=== PATIENT | female | born 1965 | race Hispanic/Latino ===

== ENCOUNTER 2024-07-25 15:04 | Inpatient (IN) | payer BC ==
[~2024-07-25] VITALS: Ht 162.6 cm; Wt 98.2 kg
[~2024-07-25 15:04] MED LIST: LOSA1TAB37 PO
[2024-07-25 15:45] LABS: BASOPHILS # (AUTO) 0.01 K/uL (0.00-0.20); BASOPHILS % (AUTO) 0.1 % (0.0-5.0); EOSINOPHILS # (AUTO) 0.02 K/uL (0.00-0.70); EOSINOPHILS % (AUTO) 0.2 % (0.0-8.0); HEMATOCRIT 41.1 % (36-48); LYMPHOCYTES # (AUTO) 1.2 K/uL (1.0-4.8); LYMPHOCYTES % (AUTO) 11.5 % (21.0-51.0); MEAN CORPUSCULAR HEMOGLOBIN 27.2 pg (27.0-33.0); MEAN CORPUSCULAR HGB CONC 31.1 g/dL (32.0-36.0); MEAN CORPUSCULAR VOLUME 87.3 fL (79-99); MONOCYTES # (AUTO) 0.2 K/uL (0.1-1.0); MONOCYTES % (AUTO) 1.5 % (3.0-13.0); NEUTROPHILS # (AUTO) 8.7 K/uL (1.8-7.7); NEUTROPHILS % (AUTO) 84.8 % (40.0-77.0); PLATELET COUNT (AUTO) 363 K/uL (130-400); RED BLOOD CELL COUNT(AUTO) 4.71 MIL/uL (4.00-5.50); RED CELL DISTRIBUTION WIDTH 18.1 % (11.0-15.5); WHITE BLOOD COUNT (AUTO) 10.3 K/uL (4.8-10.8)
--- NOTE | 2024-07-25 15:58 | NUR ---
K-2.8 LIVIA MADE AWARE
[2024-07-25 15:59] LABS: POTASSIUM 2.8 mmol/L (3.5-5.1)
[2024-07-25] MEDS: cefTRIAXone 1G VIAL IVPB ONE (16:18)
[2024-07-25] MEDS: 0.9%NACL 1000ML 1,365 ML IV ONE (16:50)
--- NOTE | 2024-07-25 16:50 | HMCIMG ---
CT ABDOMEN/PELVIS W/O CONTRAST HISTORY: Left lower quadrant pain COMPARISON: None TECHNIQUE: Multiple sequential axial images of the abdomen and pelvis were obtained from the dome of the diaphragm through symphysis pubis. Patient was not given contrast through intravenous route. Oral contrast was not given. FINDINGS: No pleural effusion is seen bilaterally. There is no evidence of parenchymal disease or pulmonary nodule of the visualized lower lungs. Degenerative changes of the thoracolumbar spine are present. The heart is not enlarged. There is free intraperitoneal air suspicious for bowel perforation. There is anterior ventral wall ventral hernia with bowel content and air collection and fat stranding. The liver, spleen, adrenal glands and pancreas are unremarkable. There is no evidence of hydronephrosis bilaterally. No evidence of renal stone is seen. Fecal material is seen in the colon. There are normal size retroperitoneal and mesenteric lymph nodes. No ascites is seen. Atherosclerotic changes are present. Postoperative changes are seen of the left.. Pelvic sidewalls are symmetric bilaterally. Bladder is well distended without wall thickening. IMPRESSION: 1. There is free intraperitoneal air suspicious for bowel perforation. There is anterior ventral wall ventral hernia with bowel content and air collection and fat stranding suggestive of bowel perforation. CT was performed with one or more following dose reduction techniques: automated exposure control, adjustment of the mA and kv according to patient's size, or use of a iterative reconstruction technique.
--- NOTE | 2024-07-25 16:55 | ERN ---
General Chief Complaint: Abdominal Pain Stated Complaint: ABDOMINAL PAIN Time Seen by MD: 15:06 Source: patient History of Present Illness Initial Comments Patient is a 59-year-old female coming in to be evaluated for lower abdominal pain. Pain has been ongoing for several days he states that the pain is in the lower abdominal area. Patient has been complaining with nausea and vomiting and a fever. Allergies: Coded Allergies: No Known Allergies (Unverified Allergy, Unknown, 06/11/24) Home Meds Reported Medications Losartan/Hydrochlorothiazide (Losartan-Hctz 50-12.5 mg Tab) 50 Mg-12.5 Mg Tablet, 1 TAB PO DAILY for 30 Days, #30 TAB 0 Refills 06/14/24 Past Medical History Past Medical History: Diabetes-Type II, High Cholesterol, Hypertension Past Surgical History: Female( History) History: Not Applicable ROS Dictation CONSTITUTIONAL: No chills, fever, weakness, diaphoresis, no malaise. HEAD/FACE: No signs of trauma. EENT: No eye pain, no blurred vision, no tearing, no double vision, no ear pain, no ear discharge, no nose pain, no nasal congestion, no throat pain, no throat swelling, no mouth pain. RESPIRATORY: No cough, no orthopnea, no SOB, no stridor, no wheezing. CARDIOVASCULAR: No chest pain, no edema, no palpitations, no syncope. GASTROINTESTINAL/ABDOMINAL: abdominal pain, no constipation, no diarrhea, no nausea, no vomiting. GENITOURINARY: No abnormal discharge, no dysuria, no frequent urination, no hematuria. No complaints of pain in the genitals. MUSCULOSKELETAL: No back pain, no gout, no joint pain, no joint swelling, no muscle pain, no muscle stiffness, no neck pain. INTEGUMENTARY: No change in color, no change in hair/nails, no dryness, no lesion, no lumps, no rash. NEUROLOGICAL/PSYCH: No anxiety, not depressed, no emotional problem, no headache, no numbness, no pre-existing deficit, no history of seizures, no tremors, no weakness. HEMATOLOGIC/LYMPHATIC: Not anemic, no history of blood clots, no apparent bleeding, no bruising, glands not swollen. All Systems Negative, Except as Noted. Physical Exam Physical Exam Dictation VITAL SIGNS: Reviewed. GENERAL APPEARANCE: Alert, oriented x3, no acute distress, obese. HEAD AND FACE: Non-traumatic. EYES: PERRL, pink conjunctivas, eyelid no trauma, anterior chamber clear. EARS: Pinnas intact and no signs of trauma or erythema. Ear canals clear and no discharge. TMs no erythema. NOSE: No discharge, no bleeding. OROPHARYNX: Mouth normal, teeth no caries, tongue pink. Pharynx clear, no erythema. Tonsils no exudates, no abscesses noted. Mucous membrane moist. NECK: Supple, non-tender, no thyromegaly, no masses, no JVD, no bruits. BREAST: Deferred. CHEST: No tenderness, no crepitus, no paradoxical movement, no retractions. LUNGS: Clear, well-ventilated, symmetric, no rales, no wheezing, no rhonchi, no stridor, good breath sounds bilaterally. HEART: Regular rate, regular rhythm, no murmur, no gallops. VASCULAR: No peripheral edema. ABDOMEN: Soft, positive bowel sounds, distended, no guarding, tender, no rebound, no masses no hepatomegaly, no splenomegaly, no Covington's sign, no hernias. RECTAL: Deferred. GENITAL: Deferred. NEUROLOGICAL: Normal speech, gross motor function intact, gross sensory function intact. MUSCULOSKELETAL: Neck nontender, full range of motion, back nontender, full range of motion. EXTREMITIES: Nontender, full range of motion. SKIN: Color pink, dry, no turgor, no rash, no lacerations, no abrasions, no c ontusions. LYMPHATICS: Deferred. Results Laboratory and Microbiology Lab and Micro Result Laboratory Tests Test 07/25/24 15:30 White Blood Count 10.3 K/uL (4.8-10.8) Red Blood Count 4.71 MIL/uL (4.00-5.50) Hemoglobin 12.8 g/dL (12.0-16.0) Hematocrit 41.1 % (36-48) Mean Corpuscular Volume 87.3 fL (79-99) Mean Corpuscular Hemoglobin 27.2 pg (27.0-33.0) Mean Corpuscular Hemoglobin Concent 31.1 g/dL (32.0-36.0) L Red Cell Distribution Width 18.1 % (11.0-15.5) H Platelet Count 363 K/uL (130-400) Mean Platelet Volume 10.3 fL (7.5-10.5) Immature Granulocyte % (Auto) 1.9 % (0-1) H Neutrophils (%) (Auto) 84.8 % (40.0-77.0) H Lymphocytes (%) (Auto) 11.5 % (21.0-51.0) L Monocytes (%) (Auto) 1.5 % (3.0-13.0) L Eosinophils (%) (Auto) 0.2 % (0.0-8.0) Basophils (%) (Auto) 0.1 % (0.0-5.0) Neutrophils # (Auto) 8.7 K/uL (1.8-7.7) H Lymphocytes # (Auto) 1.2 K/uL (1.0-4.8) Monocytes # (Auto) 0.2 K/uL (0.1-1.0) Eosinophils # (Auto) 0.02 K/uL (0.00-0.70) Basophils # (Auto) 0.01 K/uL (0.00-0.20) Absolute Immature Granulocyte (auto 0.20 K/uL (0-1) Nucleated Red Blood Cells 0.0 % (0.0-0.19) Red Blood Cell Morphology See comments Activated Partial Thromboplast Time 31.7 SEC (26.3-35.5) Sodium Level 138 mmol/L (136-145) Potassium Level 2.8 mmol/L (3.5-5.1) *L Chloride Level 99 mmol/L (101-111) L Carbon Dioxide Level 24 mmol/L (21-32) Blood Urea Nitrogen 25 mg/dL (7-18) H Creatinine 1.0 mg/dL (0.5-1.0) Glomerular Filtration Rate Calc 64 mL/min (>90) Random Glucose 269 mg/dL (70-105) H Lactic Acid Level 8.2 mmol/L (0.8-2.5) H Total Calcium 8.5 mg/dL (8.5-10.1) Total Creatine Kinase 15 U/L (21-232) L Troponin I High Sensitivity 10 ng/L (4-50) Labs Reviewed?: Yes MDM MDM: Differential diagnosis: Abdominal perforation, sepsis, Rationale: Tests considered and ordered secondary to shared decision making include: labs, ECG and radiology Previous outside records reviewed: Old ER visits. Risk of complication and/or morbidity or mortality of patient management: None Medications-Per medication reconciliation Need for hospitalization: Patient does meet criteria for hospitalization. Need for emergency major/minor surgery: No There are no social concerns with this patient. Prescription drug management Prescriptions will include symptomatic care Patient's prior external medical records from other ER visits were reviewed by me as indicated. Prior testing and results from previous visits were reviewed. Prior tests were taken into account with medical decision making and resource utilization, independent historian/historians were used to obtain complete medical history. I independently interpreted the test that were performed, results were reviewed by me and considered findings on radiology if ordered. Medical management and examination interpretation discussions were had by me with other qualified healthcare professionals as indicated for the patient's care. Patient is a 59-year-old female coming in to be evaluated for lower abdominal pain. Patient does disclose that she had for C-sections in the past. Patient will be admitted under the care of hospitalist group we will be placed in ICU Dr benavides surgeon on the case on the case. ED Course Orders Procedure Category Date Status Time Cbc With Differential LAB 07/25/24 Complete 15:09 Partial LAB 07/25/24 Complete Thromboplastin Time 15:09 Blood Cult ANIKA 07/25/24 In Process 15:09 Type And Screen BBK 07/25/24 Complete 15:09 Urinalysis Profile LAB 07/25/24 Logged 15:09 Culture Urine ANIKA 07/25/24 Logged 15:09 Creatine Kinase, Total LAB 07/25/24 Complete 15:09 Troponin I High LAB 07/25/24 Complete Sensitivity 15:09 Lactic Acid LAB 07/25/24 Complete 15:09 Basic Metabolic Panel LAB 07/25/24 Complete 15:09 Ceftriaxone 1g Vial PHA 07/25/24 Complete (Rocephine 1g Inj) 15:30 Ct Abdomen/Pelvis W/O CT 07/25/24 Taken Contrast 15:28 0.9%Nacl 1000ml (Ns PHA 07/25/24 In Process 1000ml) 16:30 Current Medications Medications (Trade) Dose Ordered Sig/Alexandra Route PRN Reason Start Time Stop Time Status Last Admin Dose Admin Ceftriaxone Sodium (ROCEphine 1G INJ) 1 gm ONCE ONCE IVPB 07/25/24 15:30 07/25/24 15:31 DC 07/25/24 16:18 Sodium Chloride 1,365 ml @ 455 mls/hr ONCE ONCE IV 07/25/24 16:30 07/25/24 19:29 Vital Signs Date Time Temp Pulse Resp B/P (MAP) Pulse Ox O2 Delivery O2 Flow Rate FiO2 07/25/24 16:44 117 20 103/70 98 Room Air* 0 21 07/25/24 15:06 97.5 117 20 145/97 99 Room Air Critical Care Note Comments Critical Care Procedure Note Authorized and Performed by: me Total critical care time: Approximately 36 minutes Due to a high probability of clinically significant, life threatening deterioration, the patient required my highest level of preparedness to intervene emergently and I personally spent this critical care time directly and personally managing the patient. This critical care time included obtaining a history; examining the patient; pulse oximetry; ordering and review of studies; arranging urgent treatment with development of a management plan; evaluation of patient's response to treatment; frequent reassessment; and, discussions with other providers. This critical care time was performed to assess and manage the high probability of imminent, life-threatening deterioration that could result in multi-organ failure. It was exclusive of separately billable procedures and treating other patients and teaching time. Please see MDM section and the rest of the note for further information on patient assessment and treatment. DX & DISP Disposition: Inpatient Decision to Admit Time: 16:54 Departure Impression: Primary Impression: Bowel perforation Additional Impression: Ventral hernia Condition: Stable Referrals: KERLINE AGEE MD (PCP) PEPPER LARSON MD July 25, 2024 16:55
[2024-07-25] MEDS ORDERED: VANCOMYCIN PROTOCOL PER PHARMACY IV SCH (17:00)
[2024-07-25] MEDS ORDERED: 0.9%NACL 50ML IV SCH (17:00)
[2024-07-25] MEDS: VANCOMYCIN KIT 1 GM/250 ML IV.KIT IV ONE (17:11)
[2024-07-25] MEDS: PoTASSium chloRIDE 10MEQ/100ML 100 ML IV ONE (17:12)
--- NOTE | 2024-07-25 17:12 | HP ---
[facility] HISTORY AND PHYSICAL Date of Service: July 25, 2024 Time of Service: 17:12 HISTORY OF PRESENT ILLNESS: 59-year-old female the past medical history of hypertension who presented to the hospital secondary to abdominal pain. Patient states for the past 3-4 days she has been having increasing abdominal pain with abdominal distention. She was feeling nauseated and had episodes of emesis at home. She denied any hematemesis, melena, hematochezia. States her last bowel movement was today which was normal colored. Patient was previously hospitalized in [facility] around one month ago secondary to colitis. GI was consulted during admission and patient underwent colonoscopy with findings showing severe inflammation of the entire colon concerning for pancolitis. She was treated with IV steroids and and was to start patient on Remicade as outpatient. She denied any fever, chills, diarrhea. She was going to follow up with GI tomorrow but had worsening pain which caused her to come to the hospital for further evaluation. Labs in the ED were notable for white count of 10.3, hemoglobin was 12.8, platelet count was 363 K, sodium was 138, potassium was 2.8, creatinine is 1.0, blood glucose was 269, lactic acid on presentation was 8.[address] abdomen pelvis which showed free intraperitoneal air concerning for bowel perforation. There is a anterior ventral wall hernia with bowel content and air collection and fat stranding concerning for bowel perforation. Her colon was also noted to be inflamed. CT was performed without contrast. REVIEW OF SYSTEMS CONSTITUTIONAL: Denies fevers, chills, or night sweats. No unintentional weight loss reported. NEUROLOGICAL: Denies headache, amaurosis fugax, motor weakness, sensory deficit, vertigo/spinning sensation, gait abnormalities, or tremors. ENT: No hearing loss, otalgia, otorrhea, rhinitis, rhinorrhea, hoarseness, or sore throat. CARDIOVASCULAR: Denies any exertional angina, dyspnea on exertion, orthopnea, paroxysmal nocturnal dyspnea, palpitations, life-threatening arrhythmias, claudication. PULMONARY: Denies any shortness of breath, cough, phlegm/sputum, hemoptysis, pleuritic chest pain. SLEEP: Denies morning headaches, daytime somnolence or napping. Denies difficulty falling asleep, staying asleep, waking from sleep. Denies knowledge of snoring. GASTROINTESTINAL: Positive for abdominal pain, abdominal distention, nausea, vomiting. Denied any melena, hematochezia, hematemesis, diarrhea GENITOURINARY: Denies frequency, urgency, nocturia, hematuria or incontinence (Storage/Irritative symptoms.) Low urinary stream, straining to void, urinary intermittency or hesitancy, splitting of the voiding stream, terminal dribbling. ENDOCRINOLOGIC: Denies polyuria, polydipsia, polyphagia or heat/cold intolerances. HEMATOLOGIC: Denies thrombophilia/previous clots, or coagulopathy/bleeding disorders. ONCOLOGIC: Denies personal history of malignancy. DERMATOLOGIC: Denies rashes or pruritus. PSYCHIATRIC: Denies any suicidal or homicidal ideation. Denies hallucinations. PAST MEDICAL HISTORY: Hypertension, history of colitis PAST SURGICAL HISTORY: History of hysterectomy, history of colonoscopy, history of PAST SOCIAL HISTORY: Denied any smoking, alcohol, drug use FAMILY HISTORY: Denied any pertinent family history Coded Allergies: No Known Allergies (Unverified Allergy, Unknown, 06/11/24) PHYSICAL EXAM GENERAL APPEARANCE: The patient is awake, alert, and oriented, in no acute cardiopulmonary distress. NEUROLOGICAL: Cranial nerves II-XII grossly intact. Motor is 5/5 in bilateral upper and lower extremities proximal to distal. No sensory deficits. HEENT: Face is symmetric. Pupils are equal and reactive. Extraocular movements are intact. NECK: Supple. No JVD. No thyromegaly. No submental, submandibular, pre- /postauricular, occipital or supraclavicular lymphadenopathy. CHEST: Normal chest expansion. No Telemetry. LUNGS: Absence of any rales, rhonchi or any wheezing. CARDIOVASCULAR: Regular. S1 and S2 normal. No appreciable rubs, murmurs or gallops. ABDOMEN: Soft, nontender, and nondistended. There is no rebound, voluntary guarding, or rigidity. : Deferred. No [place]. EXTREMITIES: Non-edematous and not cyanotic. No clubbing. Good capillary refill. SKIN: No skin breakdown. Vital Sign (Last 24 Hours) 07/25/24 07/25/24 15:06 16:44 Temp 97.5 Pulse 117 Resp 20 B/P (MAP) 103/70 Pulse Ox 98 O2 Delivery Room Air* O2 Flow Rate 0 FiO2 21 LABS: Laboratory: Test 07/25/24 15:30 Range/Units White Blood Count 10.3 4.8-10.8 K/uL Red Blood Count 4.71 4.00-5.50 MIL/uL Hemoglobin 12.8 12.0-16.0 g/dL Hematocrit 41.1 36-48 % Mean Corpuscular Volume 87.3 79-99 fL Mean Corpuscular Hemoglobin 27.2 27.0-33.0 pg Mean Corpuscular Hemoglobin Concent 31.1 L 32.0-36.0 g/dL Red Cell Distribution Width 18.1 H 11.0-15.5 % Platelet Count 363 130-400 K/uL Mean Platelet Volume 10.3 7.5-10.5 fL Immature Granulocyte % (Auto) 1.9 H 0-1 % Neutrophils (%) (Auto) 84.8 H 40.0-77.0 % Lymphocytes (%) (Auto) 11.5 L 21.0-51.0 % Monocytes (%) (Auto) 1.5 L 3.0-13.0 % Eosinophils (%) (Auto) 0.2 0.0-8.0 % Basophils (%) (Auto) 0.1 0.0-5.0 % Neutrophils # (Auto) 8.7 H 1.8-7.7 K/uL Lymphocytes # (Auto) 1.2 1.0-4.8 K/uL Monocytes # (Auto) 0.2 0.1-1.0 K/uL Eosinophils # (Auto) 0.02 0.00-0.70 K/uL Basophils # (Auto) 0.01 0.00-0.20 K/uL Absolute Immature Granulocyte (auto 0.20 0-1 K/uL Nucleated Red Blood Cells 0.0 0.0-0.19 % Red Blood Cell Morphology See comments Activated Partial Thromboplast Time 31.7 26.3-35.5 SEC Sodium Level 138 136-145 mmol/L Potassium Level 2.8 *L 3.5-5.1 mmol/L Chloride Level 99 L 101-111 mmol/L Carbon Dioxide Level 24 21-32 mmol/L Blood Urea Nitrogen 25 H 7-18 mg/dL Creatinine 1.0 0.5-1.0 mg/dL Glomerular Filtration Rate Calc 64 >90 mL/min Random Glucose 269 H 70-105 mg/dL Lactic Acid Level 8.2 H 0.8-2.5 mmol/L Total Calcium 8.5 8.5-10.1 mg/dL Total Creatine Kinase 15 L 21-232 U/L Troponin I High Sensitivity 10 4-50 ng/L Current Medications Medications (Trade) Dose Ordered Sig/Alexandra Route PRN Reason Start Time Stop Time Status Last Admin Dose Admin Famotidine (Pepcid 20mg Vial) 20 mg BID IV 07/25/24 21:00 08/24/24 20:59 UNV Piperacillin Sod/ Tazobactam Sod (Zosyn 3.375gm+NS 50ml) 3.375 gm Q12H IV 07/25/24 20:00 08/04/24 19:59 Piperacillin Sod/ Tazobactam Sod (Zosyn 3.375gm+NS 50ml) 3.375 gm Q8H IVPB 07/25/24 17:30 08/04/24 17:29 UNV Sodium Chloride 1,000 ml @ 125 mls/hr Q8H IV 07/25/24 17:30 08/24/24 17:29 UNV Sodium Chloride (NS 50ml) 50 ml AD IV 07/25/24 17:00 08/24/24 16:59 UNV Vancomycin HCl (Vancomycin Protocol) 1 each AD IV 07/25/24 17:00 08/08/24 16:59 UNV DIAGNOSTICS / RADIOLOGY: [ ] ASSESSMENT: Perforated bowel POA Anterior ventral wall hernia with bowel contents and air collection concerning for bowel perforation History of [place] colitis status post colonoscopy one month ago treated with IV steroids with concern for IBD Lactic acidosis Hypokalemia Hyperglycemia secondary to diabetes mellitus type 2 Obesity BMI 35.1 PLAN: - patient to be admitted to ICU -reference to perforated bowel and ventral hernia. Patient will remain NPO for now. Patient will be given 1 L NS bolus and we will continue on NS. Patient's case was personally discussed with General surgery. Surgery will evaluate patient. Surgery also requested CT abdomen with IV contrast for further evaluation of colitis. We will request GI consultation. The patient will be st arted on vancomycin and Zosyn. We will request ID consultation. Trend lactic acidosis -obtain critical Care consultation -obtain home medications which will be reconciled available -further orders per hospitalization course. Patient's overall condition remains critical. Prognosis remains guarded. Plan of care was discussed with patient at bedside. Advanced Care Planning Which of the following were discussed: Hospice care: Yes __ No _x_ Therapeutic options: Yes __ No __ Advance directives: Yes __ No __ Other discussions: Pt is full code Discussed with who?: patient (Patient, family or surrogates) Voluntary nature of this service was explained to the patient? Yes _x_ No __ Amount of time spent: 25 minutes MARAH Horn MD, MD July 25, 2024 17:12
--- NOTE | 2024-07-25 17:57 | NUR ---
LAC-6.0 ERMD MADE AWARE
[2024-07-25 18:03] LABS: HEMOGLOBIN A1C 8.1 % (4.0-6.0)
[2024-07-25] MEDS: 0.9%NACL 1000ML 1,000 ML IV ONE (18:33)
[2024-07-25 18:48] LABS: ABG BASE EXCESS 0.5 mmol/L (-2.0-3.0); ABG HCO3 22.5 mmol/L (21.0-28.0); ABG OXYGEN SATURATION 91.5 % (94.0-98.0); ABG PCO2 28 mmHg (32-45); ABG PH 7.519 (7.350-7.450); CARBON MONOXIDE 0.5 % (0.5-1.5); DEVICE COMMENT RR RN; HHb 8.4; PO2, ARTERIAL BG 62.6 mmHg (83.0-108.0); VENT MODE, BG RA (ROOM AIR)
[2024-07-25 18:51] VITALS: PULSE 109; RESP 19; O2SAT 98
[2024-07-25] MEDS ORDERED: IOHEXOL-350 75 ML VIAL IV ONE (19:06)
[2024-07-25] MEDS: MAGNESIUM 2GM PREMIX 50ML 50 ML IV PRN (19:19)
[2024-07-25] MEDS: 0.9%NACL 1000ML 1,000 ML IV SCH (19:23)
--- NOTE | 2024-07-25 19:46 | HMCIMG ---
CT ABDOMEN WITH CONTRAST. CT PELVIS WITH CONTRAST INDICATION: Perforated bowel? TECHNIQUE: Routine transaxial images using 5 mm slice thickness were obtained after the intravenous infusion of 75 mL of Omnipaque 350 without adverse effects. Oral contrast was not administered. Rectal contrast was not administered. Coronal and sagittal reformatted images acquired for interpretation. CT was performed with one or more of the following dose reduction techniques: Automated exposure control, adjustment of the mA and/or kV according to patient size, or use of iterative reconstruction technique. COMPARISON: 07/25/2024 FINDINGS/IMPRESSION: Unchanged pneumoperitoneum and moderate air, fat, and small bowel loop-containing ventral hernia suggesting viscous perforation, and secondary mild submucosal edema and mild mucosal enhancement along the upstream jejunal loops compatible with enteritis or evolving ischemic bowel, without bowel obstruction at this juncture. Remainder of the study is also unchanged. General surgery consult is recommended.
[2024-07-25] MEDS ORDERED: ZOSYN 3.375GM +NS 50ML IVPB SCH (20:00)
[2024-07-25] MEDS ORDERED: ZOSYN 3.375GM +NS 50ML IV SCH (20:00)
[2024-07-25] MEDS: ZOSYN 3.375GM +NS 50ML IVPB SCH (20:20)
[2024-07-25 20:36] LABS: APPEARANCE,URINE CLOUDY (CLEAR); BILIRUBIN,URINE NEGATIVE (NEGATIVE); COLOR,URINE YELLOW (YELLOW); GLUCOSE, URINE (UA) 200 mg/dL (NEGATIVE); KETONES,URINE NEGATIVE (NEGATIVE); LEUKOCYTE ESTERASE ,URINE NEGATIVE Leu/uL (NEGATIVE); NITRATE,URINE NEGATIVE (NEGATIVE); OCCULT BLOOD,URINE NEGATIVE (NEGATIVE); PROTEIN,URINE 30 mg/dL (NEGATIVE)
[2024-07-25 20:46] LABS: ADD UA MICROSCOPIC YES
[2024-07-25 20:48] LABS: MUCUS,URINE FEW LPF (None Seen); SQUAMOUS EPITHELIAL CELL,UR RARE /HPF (0-2); UNCLASSIFIED CRYSTAL 4 /HPF (None Seen)
[2024-07-25 21:13] LABS: POTASSIUM 2.9 mmol/L (3.5-5.1)
[2024-07-25] MEDS: PoTASSium chloRIDE 20MEQ/100ML 100 ML IV PRN (21:21)
[2024-07-25] MEDS: FAMOTIDINE 20MG VIAL IV SCH (21:21)
--- NOTE | 2024-07-25 22:53 | CONS ---
[facility] CONSULTATION NOTE Date Patient Seen: July 25, 2024 Time of Visit: 22:00 Supervising Physician: [Dr. Garland Oliva] Reason for Consultation: Critical care consult ] Primary Care Physician: [Dr. Villarreal of [facility] ] Outpatient Specialists: [GI: Dr. Solitario ] Inpatient Consults: [Dr. Quintero of surgery ] PROBLEM LIST: Bowel perforation-POA Pneumoperitoneum-POA High risk for ischemic bowel-POA Intractable abdominal pain-POA Acute hypokalemia-POA Dehydration-POA Lactic acidosis-POA Hyperglycemia 2/2 uncontrolled diabetes mellitus-POA Primary HTN HX of colitis HX of cardiac arrest HX of BLE cellulitis Recent hospitalization for UTI with outpatient Zosyn antibiotic with Dr. Diaz PLAN: -Continue critical care management -Agree with IV Vancomycin and Zosyn, kidney function is stable -Manage abdominal pain and N/V PRN -Surgeon, Dr. Quintero was already consulted by the primary team and plans to bring the patient for surgery in am -Manage and replete electrolytes PRN -IV fluids for hydration -Nursing to monitor abdominal assessment status for high risk for peritonitis and to call surgeon STAT if any changes -Manage blood sugar, monitor normoglycemic status to keep between 100-160 -The rest of medical management per primary team HPI: [Per hospitalist's notes: "59-year-old female the past medical history of hypertension who presented to the hospital secondary to abdominal pain. Patient states for the past 3-4 days she has been having increasing abdominal pain with abdominal distention. She was feeling nauseated and had episodes of emesis at home. She denied any hematemesis, melena, hematochezia. States her last bowel movement was today which was normal colored. Patient was previously hospitalized in [facility] around one month ago secondary to colitis. GI was consulted during admission and patient underwent colonoscopy with findings showing severe inflammation of the entire colon concerning for pancolitis. She was treated with IV steroids and and was to start patient on Remicade as outpatient. She denied any fever, chills, diarrhea. She was going to follow up with GI tomorrow but had worsening pain which caused her to come to the hospital for further evaluation.Labs in the ED were notable for white count of 10.3, hemoglobin was 12.8, platelet count was 363 K, sodium was 138, potassium was 2.8, creatinine is 1.0, blood glucose was 269, lactic acid on presentation was 8.[address] abdomen pelvis which showed free intraperitoneal air concerning for bowel perforation. There is a anterior ventral wall hernia with bowel content and air collection and fat stranding concerning for bowel perforation. Her colon was also noted to be inflamed. CT was performed without contrast." BIS team was consulted for critical care management. At the time of assessment, patient is resting comfortably with abdomen soft on the upper to middle portion and with protrusion on the lower center region. According to the patient, the protrusion is nothing new, has been chronic for the longest time. Palpation is tender on bilateral lower areas with no signs of ischemia or peritonitis.Her son claims that the patient recently had colitis and UTI and had received IV Zosyn infusion form Dr. Diaz's office. BP is stable without requiring any pressor. We will continue to follow along patient;s condition and response to treatment until surgery sees her in am for a planned surgery to address the bowel perforation as confirmed by the bedside RN. ON behalf of BIS team, thank you for the opportunity to participate on Ms. Simms's plan of care. PAST MEDICAL HX: see above PAST SURGICAL HX: noncontributory SOCIAL HISTORY: No tobacco, ETOH, or illicit drug use Coded Allergies: No Known Allergies (Unverified Allergy, Unknown, 06/11/24) REVIEW OF SYSTEMS: 12 point ROS reviewed with patient. Pertinent positives mentioned above. Otherwise negative. PHYSICAL EXAM: GENERAL: alert, weak, awake oriented x 3 HEENT: EOMI, Sclera non icteric, moist mucosa NECK: Supple, no JVD, trachea midline LUNGS: Clear breath sounds bilaterally. No wheezes HEART: Regular rate and rhythm. Normal S1 and S2, without murmurs ABD: Abdomen soft on the upper region but tender on bilateral lower. No signs of ischemia or peritonitis. Protrusion on the lower central region-chronic. Bowel sounds hypoactive EXT: No clubbing cyanosis or edema. [place] in situ NEURO: Alert and oriented to person, follows commands Vital Signs (last 8hr) Date Time Temp Pulse Resp B/P (MAP) Pulse Ox O2 Delivery O2 Flow Rate FiO2 07/25/24 20:00 97.9 104 19 137/93 96 Nasal Cannula* 2 28 07/25/24 18:51 109 19 Nasal Cannula 2.0 28 07/25/24 18:45 97.9 109 18 128/85 97 Room Air* 0 07/25/24 17:15 97.9 114 18 117/69 96 Room Air* 0 07/25/24 16:44 117 20 103/70 98 Room Air* 0 07/25/24 15:06 97.5 117 20 145/97 99 Room Air LABS: Hematology Labs: Test 07/25/24 15:30 Range/Units White Blood Count 10.3 4.8-10.8 K/uL Red Blood Count 4.71 4.00-5.50 MIL/uL Hemoglobin 12.8 12.0-16.0 g/dL Hematocrit 41.1 36-48 % Mean Corpuscular Volume 87.3 79-99 fL Mean Corpuscular Hemoglobin 27.2 27.0-33.0 pg Mean Corpuscular Hemoglobin Concent 31.1 L 32.0-36.0 g/dL Red Cell Distribution Width 18.1 H 11.0-15.5 % Platelet Count 363 130-400 K/uL Mean Platelet Volume 10.3 7.5-10.5 fL Immature Granulocyte % (Auto) 1.9 H 0-1 % Neutrophils (%) (Auto) 84.8 H 40.0-77.0 % Lymphocytes (%) (Auto) 11.5 L 21.0-51.0 % Monocytes (%) (Auto) 1.5 L 3.0-13.0 % Eosinophils (%) (Auto) 0.2 0.0-8.0 % Basophils (%) (Auto) 0.1 0.0-5.0 % Neutrophils # (Auto) 8.7 H 1.8-7.7 K/uL Lymphocytes # (Auto) 1.2 1.0-4.8 K/uL Monocytes # (Auto) 0.2 0.1-1.0 K/uL Eosinophils # (Auto) 0.02 0.00-0.70 K/uL Basophils # (Auto) 0.01 0.00-0.20 K/uL Absolute Immature Granulocyte (auto 0.20 0-1 K/uL Nucleated Red Blood Cells 0.0 0.0-0.19 % Red Blood Cell Morphology See comments Chemistry Labs: Test 07/25/24 20:27 07/25/24 17:46 07/25/24 17:30 07/25/24 15:30 Range/Units Sodium Level 140 136-145 mmol/L Potassium Level 2.9 *L 3.5-5.1 mmol/L Chloride Level 104 101-111 mmol/L Carbon Dioxide Level 26 21-32 mmol/L Blood Urea Nitrogen 26 H 7-18 mg/dL Creatinine 1.0 0.5-1.0 mg/dL Glomerular Filtration Rate Calc 64 >90 mL/min Random Glucose 233 H 70-105 mg/dL Lactic Acid Level 1.8 0.8-2.5 mmol/L Total Calcium 7.3 L 8.5-10.1 mg/dL Hemoglobin A1c 8.1 H 4.0-6.0 % Estimated Average Glucose (eAG) 186 H 70-126 mg/dL Procalcitonin 11.46 H 0.05-0.5 ng/mL Magnesium Level 1.40 L 1.80-2.40 mg/dL Total Creatine Kinase 15 L 21-232 U/L Troponin I High Sensitivity 10 4-50 ng/L Coagulation Labs: Test 07/25/24 15:30 Range/Units Activated Partial Thromboplast Time 31.7 26.3-35.5 [facility] DI[facility]NOSTICS / RADIOLOGY RESULTS: CT abdomen and pelvis IMPRESSION: 1. There is free intraperitoneal air suspicious for bowel perforation. There is anterior ventral wall ventral hernia with bowel content and air collection and fat stranding suggestive of bowel perforation. ] PLAN NEURO: Minimize central acting medications as possible. Maintain fall precautions, adequate lighting during the day PULMONARY: Supplemental 02 as needed. Maintain aspiration precautions at all times CARDIOVASCULAR: Follow hemodynamics. Vital signs per facility protocol GI & NUTRITION: Continue with nutritional support. Continue stool softeners and laxatives as needed. KIDNEYS & ELECTROLYTES: Strict monitoring of intake, output and overall fluid balance. Avoid nephrotoxic medications to the extent possible. Medications to be dosed according to renal function. Monitor electrolytes and replace as needed ENDOCRINE: Maintain blood glucose between 100-180 at all times. Hypoglycemia protocol in place INFECTIOUS DISEASE: Trend temperature, WBC and procalcitonin level Follow cultures, deescalate antibiotics as soon as possible. Panculture if new onset fever ONCOLOGY/HEMATOLOGY/COAGULATION: Monitor for s/s of bleeding Monitor hemoglobin, coagulation studies as needed SKIN: Pressure ulcer prevention per facility protocol Specialty mattress ORTHO/REHAB: Continue PT/OT Prophylaxis: Continue GI and DVT prophylaxis Code Status: Full Resuscitation Disposition: TBD Other: Total patient care time: 35 minutes CHAN MAYA July 25, 2024 22:53
[2024-07-26] VITALS (85 sets, daily range): BP systolic 55–200; BP diastolic 23–127; PULSE 67–113; RESP 5–26; TEMP 96.8–98.1; O2SAT 97–100
[2024-07-26] MEDS ORDERED: GLIM1TAB56 PO
[2024-07-26] MEDS ORDERED: AZAT50TA17 PO
[2024-07-26] MEDS ORDERED: PANT40TA54 PO
[2024-07-26] MEDS ORDERED: MESA1.2T3 PO
[2024-07-26] MEDS ORDERED: CHOL500051 PO
[2024-07-26] MEDS ORDERED: POTA-202 PO
[2024-07-26] MEDS: INSULIN humuLIN R 100 UNIT/ML 3ML SQ SCH (00:41)
[2024-07-26 01:01] LABS: RAPID GROUP A STREP negative (NEGATIVE)
[2024-07-26 01:11] LABS: COVID19 (SARS ANTIGEN RAPID) PRESUMPTIVE NEGATIVE (NEGATIVE); INFLUENZA TYPE A Negative For Type A (NEGATIVE); INFLUENZA TYPE B Negative For Type B (NEGATIVE)
[2024-07-26 06:19] LABS: HEMATOCRIT 35.9 % (36-48); IMMATURE GRANULOCYTE ABSOLUTE 0.32 K/uL (0-1); LYMPHOCYTES # (AUTO) 1.3 K/uL (1.0-4.8); MEAN CORPUSCULAR HEMOGLOBIN 26.4 pg (27.0-33.0); MEAN CORPUSCULAR HGB CONC 30.6 g/dL (32.0-36.0); MEAN CORPUSCULAR VOLUME 86.3 fL (79-99); MONOCYTES # (AUTO) 0.4 K/uL (0.1-1.0); MONOCYTES % (AUTO) 1.9 % (3.0-13.0); NEUTROPHILS # (AUTO) 16.8 K/uL (1.8-7.7); NEUTROPHILS % (AUTO) 89.4 % (40.0-77.0); NUCLEATED RED BLOOD CELLS 0.1 % (0.0-0.19); PLATELET COUNT (AUTO) 203 K/uL (130-400); RED BLOOD CELL COUNT(AUTO) 4.16 MIL/uL (4.00-5.50); RED CELL DISTRIBUTION WIDTH 18.6 % (11.0-15.5); WHITE BLOOD COUNT (AUTO) 18.8 K/uL (4.8-10.8)
[2024-07-26 06:32] LABS: CREATININE 1.2 mg/dL (0.5-1.0); POTASSIUM 3.7 mmol/L (3.5-5.1)
--- NOTE | 2024-07-26 08:39 | NUR ---
DCP: HOME met with pt and Augusto Simms [phone]. Prior to admission, pt reports she was able to complete ADLS on her own. Used a walker with seat and shower chair. states he will be her caregiver and assist pt as needed at discharge. Pt has no provider, or HD services. Addendum: 07/26/24 at 0843 by KEN LEYVA Amended: Links added.
--- NOTE | 2024-07-26 09:34 | NUR ---
Dr Shepherd at the bedside. Provider updated on patients condition. Provider ordered to obtain consent for exploratory laparotomy with possible bowel resection, possible ostomy, possible repair of ventral hernia, and any indicated procedures.
--- NOTE | 2024-07-26 09:51 | PN ---
[facility] PROGRESS NOTE Date Patient Seen: July 26, 2024 Time of Visit: 09:51 Supervising Physician: Quique Rivera MD Primary Care Physician: [Dr. Villarreal of [facility] ] Outpatient Specialists: [GI: Dr. Solitario ] Inpatient Consults: [Dr. Quintero of surgery ] PROBLEM LIST: Bowel perforation-POA Pneumoperitoneum-POA High risk for ischemic bowel-POA Intractable abdominal pain-POA Acute hypokalemia-POA this is Dehydration-POA SHARMILA not POA Lactic acidosis-POA Hyperglycemia 2/2 uncontrolled diabetes mellitus Primary HTN HX of colitis HX of cardiac arrest HX of BLE cellulitis Recent hospitalization for UTI with outpatient Zosyn antibiotic with Dr. Diaz PLAN: -Continue critical care management -Agree with IV Vancomycin - change zosyn to cefepime and fluconazole added per ID -Manage abdominal pain and N/V PRN -Surgeon, Dr. Quintero was already consulted by the primary team and plans to bring the patient for surgery in am -Manage and replete electrolytes PRN -IV fluids for hydration -Nursing to monitor abdominal assessment status for high risk for peritonitis and to call surgeon STAT if any changes -Manage blood sugar, monitor normoglycemic status to keep between 100-160 -The rest of medical management per primary team INTERVAL HISTORY: Pt assessed she was awake alert and orieted x 3. She is on no pressors at this time. white count increased to 18.8, H&H is 11/35.9 platelet count of 203 K. chemistries sodium is 141 potassium of 3.7 BUN of 29 creatinine of 1.2 and GFR of 52. We will change Zosyn to cefepime and fluconazole has been added per ID continue with vancomycin for now. Urinalysis with no growth culture blood cultures no growth after 24 hours. Pt is pending to go to OR. Dr raymond has scheduled for this morning. we will follow pt post op. REVIEW OF SYSTEMS: Const: [no fever, fatigue, or weight changes] Eyes:[ no recent vision problems] ENT: [No congestion, ear pain, or sore throat] C/V: [no chest pain, palpitations or edema] Resp: [No cough, congestion, wheezing , or Shortness of breath] GI: yes for abdominal pain : [No incontinence of or dyuria] M/S: [No joint or pain swelling] Skin: [No rash] Neuro: [no headache, focal numbness, or weakness, dizziness or seizures] Psych: [no depression or anxiety] Heme: [no abnormal bruising or bleeding] PHYSICAL EXAM: GENERAL: alert, weak, awake oriented x 3 HEENT: EOMI, Sclera non icteric, moist mucosa NECK: Supple, no JVD, trachea midline LUNGS: Clear breath sounds bilaterally. No wheezes HEART: Regular rate and rhythm. Normal S1 and S2, without murmurs ABD: Abdomen soft on the upper region but tender on bilateral lower. No signs of ischemia or peritonitis. Protrusion on the lower central region-chronic. Bowel sounds hypoactive EXT: No clubbing cyanosis or edema. [place] in situ NEURO: Alert and oriented to person, follows commands Vital Signs (last 8hr) Date Time Temp Pulse Resp B/P (MAP) Pulse Ox O2 Delivery O2 Flow Rate FiO2 07/26/24 06:43 102 23 125/83 100 Nasal Cannula 2.0 07/26/24 06:28 97 11 97/71 100 Nasal Cannula 2.0 07/26/24 06:14 101 14 112/83 100 Nasal Cannula 2.0 07/26/24 05:58 100 16 107/79 100 Nasal Cannula 2.0 07/26/24 05:43 103 21 120/89 100 Nasal Cannula 2.0 07/26/24 05:29 97 12 97/66 100 Nasal Cannula 2.0 07/26/24 05:13 98 20 110/78 100 Nasal Cannula 2.0 07/26/24 04:58 101 17 109/75 100 Nasal Cannula 2.0 07/26/24 04:43 99 20 102/72 100 Nasal Cannula 2.0 07/26/24 04:28 101 22 120/79 100 Nasal Cannula 2.0 07/26/24 04:13 97.9 102 17 101/69 100 Nasal Cannula 2.0 07/26/24 04:00 100 Nasal Cannula* 2 28 07/26/24 03:58 105 17 124/87 99 Nasal Cannula 2.0 07/26/24 03:43 102 22 110/82 100 Nasal Cannula 2.0 07/26/24 03:28 104 21 118/82 100 Nasal Cannula 2.0 07/26/24 03:13 103 21 115/76 100 Nasal Cannula 2.0 07/26/24 02:58 105 21 114/82 99 Nasal Cannula 2.0 07/26/24 02:43 105 21 114/72 100 Nasal Cannula 2.0 07/26/24 02:28 104 22 113/67 99 07/26/24 02:14 98.1 107 23 116/79 100 Nasal Cannula 2.0 07/26/24 02:14 99 Nasal Cannula* 2 28 LABS: Hematology Labs: Test 07/26/24 06:06 07/25/24 15:30 Range/Units White Blood Count 18.8 #H 4.8-10.8 K/uL Red Blood Count 4.16 4.00-5.50 MIL/uL Hemoglobin 11.0 L 12.0-16.0 g/dL Hematocrit 35.9 L 36-48 % Mean Corpuscular Volume 86.3 79-99 fL Mean Corpuscular Hemoglobin 26.4 L 27.0-33.0 pg Mean Corpuscular Hemoglobin Concent 30.6 L 32.0-36.0 g/dL Red Cell Distribution Width 18.6 H 11.0-15.5 % Platelet Count 203 # 130-400 K/uL Mean Platelet Volume 9.9 7.5-10.5 fL Immature Granulocyte % (Auto) 1.7 H 0-1 % Neutrophils (%) (Auto) 89.4 H 40.0-77.0 % Lymphocytes (%) (Auto) 7.0 L 21.0-51.0 % Monocytes (%) (Auto) 1.9 L 3.0-13.0 % Eosinophils (%) (Auto) 0.0 0.0-8.0 % Basophils (%) (Auto) 0.0 0.0-5.0 % Neutrophils # (Auto) 16.8 H 1.8-7.7 K/uL Lymphocytes # (Auto) 1.3 1.0-4.8 K/uL Monocytes # (Auto) 0.4 0.1-1.0 K/uL Eosinophils # (Auto) 0.00 0.00-0.70 K/uL Basophils # (Auto) 0.00 0.00-0.20 K/uL Absolute Immature Granulocyte (auto 0.32 0-1 K/uL Nucleated Red Blood Cells 0.1 0.0-0.19 % White Cell Morphology Comment See comments Red Blood Cell Morphology See comments Chemistry Labs: Test 07/26/24 07:24 07/26/24 06:06 07/25/24 20:27 07/25/24 17:46 Range/Units Whole Blood Glucose 171 H 70-110 MG/DL Sodium Level 141 136-145 mmol/L Potassium Level 3.7 3.5-5.1 mmol/L Chloride Level 106 101-111 mmol/L Carbon Dioxide Level 27 21-32 mmol/L Blood Urea Nitrogen 29 H 7-18 mg/dL Creatinine 1.2 H 0.5-1.0 mg/dL Glomerular Filtration Rate Calc 52 >90 mL/min Random Glucose 202 H 70-105 mg/dL Total Calcium 7.5 L 8.5-10.1 mg/dL Lactic Acid Level 1.8 0.8-2.5 mmol/L Hemoglobin A1c 8.1 H 4.0-6.0 % Estimated Average Glucose (eAG) 186 H 70-126 mg/dL Procalcitonin 11.46 H 0.05-0.5 ng/mL Test 07/25/24 17:30 07/25/24 15:30 Range/Units Magnesium Level 1.40 L 1.80-2.40 mg/dL Total Creatine Kinase 15 L 21-232 U/L Troponin I High Sensitivity 10 4-50 ng/L Coagulation Labs: Test 07/25/24 15:30 Range/Units Activated Partial Thromboplast Time 31.7 26.3-35.5 [facility]NOSTICS / RADIOLOGY RESULTS: [ ] PLAN NEURO: Minimize central acting medications as possible. Fall Precautions. Well lighted room through the day and minimize interruptions through the night to prevent acute delirium. PULMONARY: Supplemental 02 as needed Titrate Fio2 to keep Spo2 > or = 90% DuoNebs and CPT as needed IS hourly while awake for pulmonary hygiene Out of bed to chair as tolerated CARDIOVASCULAR: Follow hemodynamics. Titrate vasopressor to keep MAP >65 or systolic blood pressure >95mmHg DRIPS: [ ] LINES: [ ] GI & NUTRITION: Continue nutritional support Aspirations precautions Prokinetic agents and laxatives as needed KIDNEYS & ELECTROLYTES: Strict monitoring of intake and output Daily weights Avoid nephrotoxic agents Monitor electrolytes and replace as needed Goal urine output of 30mL/hr or 0.5mL/kg/hr Urine output: [ ] Fluid Balance: [ ] ENDOCRINE: Maintain blood glucose between 100-180 at all times. Insulin sliding scale for blood glucose management INFECTIOUS DISEASE: Trend temperature. Lawson-culture if febrile. Micro: [ ] Antibiotics: [ ] HEMATOLOGY & COAGULATION: Monitor H&H. Keep Hgb > 7 Transfuse 1 unit of PRBC for Hgb < 7 Transfuse 1 pack of platelets of platelets < 20, 000 Watch for any signs and symptoms of bleeding SKIN: Pressure ulcer prevention per facility protocol Rehab: PT/OT Prophylaxis: GI: famotidine DVT: scd Code Status: Full Resuscitation Disposition: [ icu] Other: Total patient care time exceeds 35 minutes excluding all procedures. Case was discussed and seen with my supervising physician. The above plan was formulated and agreed upon. ATTESTATION BY PHYSICIAN The patient has been seen and evaluated, the case has been discussed with the DRINKING WATER TECHNICIAN, I agree with the clinical findings and plan of care. Quique Rivera MD, NELLY J ARNP July 26, 2024 09:51
--- NOTE | 2024-07-26 10:02 | CONS ---
GENERAL SURGERY CONSULTATION NOTE DATE OF CONSULTATION: July 26, 2024 TIME OF CONSULTATION: 10:02 CONSULTING SERVICE: Fernando Alvarado MD REQUESTING PHYSICAIN: [ ] REASON FOR CONSULTATION: [ ] HISTORY OF PRESENT ILLNESS: [ ] PAST MEDICAL HISTORY: [ ] PAST SURGICAL HISTORY: [ ] FAMILY HISTORY: [ ] SOCIAL HISTORY: [ ] Current Medications Medications (Trade) Dose Ordered Sig/Alexandra Route Start Time Stop Time Status Last Admin Dose Admin Famotidine (Pepcid 20mg Vial) 20 mg Q24H IV 07/25/24 21:00 08/24/24 20:59 07/25/24 21:21 20 MG Insulin Human Regular (humuLIN R 100 UNIT/ML 3ML) INSULIN SLIDING SCAL... Q6H6 SQ 07/26/24 00:00 08/25/24 00:00 07/26/24 00:41 3 UNIT Piperacillin Sod/ Tazobactam Sod (Zosyn 3.375gm+NS 50ml) 3.375 gm Q12H IV 07/25/24 20:00 07/25/24 17:27 DC Piperacillin Sod/ Tazobactam Sod (Zosyn 3.375gm+NS 50ml) 3.375 gm Q8H IVPB 07/25/24 19:00 08/04/24 18:59 07/26/24 03:51 3.375 GM Piperacillin Sod/ Tazobactam Sod (Zosyn 3.375gm+NS 50ml) 3.375 gm Q8H IVPB 07/25/24 20:00 07/25/24 18:49 DC Sodium Chloride 1,000 ml @ 125 mls/hr Q8H IV 07/25/24 17:30 08/24/24 17:29 07/26/24 08:34 125 MLS/HR Sodium Chloride (NS 50ml) 50 ml AD IV 07/25/24 17:00 07/25/24 17:29 DC Vancomycin HCl 250 ml @ 125 mls/hr Q24H IV 07/26/24 17:00 08/05/24 16:59 Vancomycin HCl (Vancomycin Protocol) 1 each AD IV 07/25/24 17:00 08/08/24 16:59 Allergies: Coded Allergies: No Known Allergies (Unverified Allergy, Unknown, 06/11/24) REVIEW OF SYSTEMS: ORGAN TEACHER: [Denies headaches or blurring of vision.] RESP: [No cough, chest pain or SOB.] CVS: [No palpitaions.] GI: [abdominal pain with nausea and vomiting, no diarrhea or constipation.] DANISH: [No dysuria or hematuria.] Musculoskeletal: [No swelling or joint pain.] BACK: [No pain or swelling.] All other systems are reviewed and essentially negative pertinent positives in HPI. PHYSICAL EXAMINATION: GENERAL: [Patient is lying comfortably in bed, not in any obvious distress.] HEAD: [Normal with no signs of head trauma.] EYES: [Not pale not jaundiced afebrile to touch.] ENT: [ Normal.] NECK: [Supple,no tenderness,no lymphadenopathy,no masses,no thyromegaly ,no bruits, no JVD.] LUNGS: [Clear breath sounds bilaterally. No wheezes, rales, or rhonchi.] HEART: [Regular rate and rhythm. Normal S1 and S2, without murmurs, rub or gallop.] VASC: [No edema. Peripheral pulses normal and equal in all extremities.] ABD: [Bowel sounds present,soft, RUQ tender, no masses, no organomegaly.] : [Normal, no suprapubic tenderness.] LYMPH: [No lymphadenopathy noted.] EXT: [ Warm soft, non tender.] SKIN: [ No rashes or lesions.] NEURO: [ Awake Alert and oriented x3.] Vital Signs (last 8hr) Date Time Temp Pulse Resp B/P (MAP) Pulse Ox O2 Delivery O2 Flow Rate FiO2 07/26/24 06:43 102 23 125/83 100 Nasal Cannula 2.0 07/26/24 06:28 97 11 97/71 100 Nasal Cannula 2.0 07/26/24 06:14 101 14 112/83 100 Nasal Cannula 2.0 07/26/24 05:58 100 16 107/79 100 Nasal Cannula 2.0 07/26/24 05:43 103 21 120/89 100 Nasal Cannula 2.0 07/26/24 05:29 97 12 97/66 100 Nasal Cannula 2.0 07/26/24 05:13 98 20 110/78 100 Nasal Cannula 2.0 07/26/24 04:58 101 17 109/75 100 Nasal Cannula 2.0 07/26/24 04:43 99 20 102/72 100 Nasal Cannula 2.0 07/26/24 04:28 101 22 120/79 100 Nasal Cannula 2.0 07/26/24 04:13 97.9 102 17 101/69 100 Nasal Cannula 2.0 07/26/24 04:00 100 Nasal Cannula* 2 28 07/26/24 03:58 105 17 124/87 99 Nasal Cannula 2.0 07/26/24 03:43 102 22 110/82 100 Nasal Cannula 2.0 07/26/24 03:28 104 21 118/82 100 Nasal Cannula 2.0 07/26/24 03:13 103 21 115/76 100 Nasal Cannula 2.0 07/26/24 02:58 105 21 114/82 99 Nasal Cannula 2.0 07/26/24 02:43 105 21 114/72 100 Nasal Cannula 2.0 07/26/24 02:28 104 22 113/67 99 07/26/24 02:14 98.1 107 23 116/79 100 Nasal Cannula 2.0 07/26/24 02:14 99 Nasal Cannula* 2 28 LABORATORY: [ ] Hematology Labs: Test 07/26/24 06:06 07/25/24 15:30 Range/Units White Blood Count 18.8 #H 4.8-10.8 K/uL Red Blood Count 4.16 4.00-5.50 MIL/uL Hemoglobin 11.0 L 12.0-16.0 g/dL Hematocrit 35.9 L 36-48 % Mean Corpuscular Volume 86.3 79-99 fL Mean Corpuscular Hemoglobin 26.4 L 27.0-33.0 pg Mean Corpuscular Hemoglobin Concent 30.6 L 32.0-36.0 g/dL Red Cell Distribution Width 18.6 H 11.0-15.5 % Platelet Count 203 # 130-400 K/uL Mean Platelet Volume 9.9 7.5-10.5 fL Immature Granulocyte % (Auto) 1.7 H 0-1 % Neutrophils (%) (Auto) 89.4 H 40.0-77.0 % Lymphocytes (%) (Auto) 7.0 L 21.0-51.0 % Monocytes (%) (Auto) 1.9 L 3.0-13.0 % Eosinophils (%) (Auto) 0.0 0.0-8.0 % Basophils (%) (Auto) 0.0 0.0-5.0 % Neutrophils # (Auto) 16.8 H 1.8-7.7 K/uL Lymphocytes # (Auto) 1.3 1.0-4.8 K/uL Monocytes # (Auto) 0.4 0.1-1.0 K/uL Eosinophils # (Auto) 0.00 0.00-0.70 K/uL Basophils # (Auto) 0.00 0.00-0.20 K/uL Absolute Immature Granulocyte (auto 0.32 0-1 K/uL Nucleated Red Blood Cells 0.1 0.0-0.19 % White Cell Morphology Comment See comments Red Blood Cell Morphology See comments Chemistry Labs: Test 07/26/24 07:24 07/26/24 06:06 07/25/24 20:27 07/25/24 17:46 Range/Units Whole Blood Glucose 171 H 70-110 MG/DL Sodium Level 141 136-145 mmol/L Potassium Level 3.7 3.5-5.1 mmol/L Chloride Level 106 101-111 mmol/L Carbon Dioxide Level 27 21-32 mmol/L Blood Urea Nitrogen 29 H 7-18 mg/dL Creatinine 1.2 H 0.5-1.0 mg/dL Glomerular Filtration Rate Calc 52 >90 mL/min Random Glucose 202 H 70-105 mg/dL Total Calcium 7.5 L 8.5-10.1 mg/dL Lactic Acid Level 1.8 0.8-2.5 mmol/L Hemoglobin A1c 8.1 H 4.0-6.0 % Estimated Average Glucose (eAG) 186 H 70-126 mg/dL Procalcitonin 11.46 H 0.05-0.5 ng/mL Test 07/25/24 17:30 07/25/24 15:30 Range/Units Magnesium Level 1.40 L 1.80-2.40 mg/dL Total Creatine Kinase 15 L 21-232 U/L Troponin I High Sensitivity 10 4-50 ng/L Coagulation Labs: Test 07/25/24 15:30 Range/Units Activated Partial Thromboplast Time 31.7 26.3-35.5 [facility] DIAGNOSTICS / RADIOLOGY: [Copy/Paste Echos/Imaging Report here] ASSESSMENT: [] PLAN: [] NPO/IVF/IV ANTIOBIOTICS Schedule for OR We talked about various treatment options including but not limited to surgery. We talked about risks and benefits of surgery, patient verbalized understanding has agreed to proceed [ ]. We will schedule [ ]. FERNANDO AVLARADO MD July 26, 2024 10:02
[2024-07-26] MEDS ORDERED: LIDOCAINE PF 100MG/5ML (2%) SYRINGE 5ML ONE (10:22)
[2024-07-26] MEDS ORDERED: proPOFol 10 MG/ML 20ML VIAL IV ONE (10:22)
[2024-07-26] MEDS ORDERED: FENTanyl CITRate PF 50 MCG/1 ML 2ML VIAL ONE (10:23)
[2024-07-26] MEDS ORDERED: rocuRONium bROMide 10MG/1ML 5ML VL ONE ×2 (10:23→11:29)
[2024-07-26] MEDS ORDERED: SUCCINYLCHOLINE CHLORIDE 20 MG/ML 10 ML VIAL ONE (10:26)
--- NOTE | 2024-07-26 10:35 | PN ---
[facility] PROGRESS NOTE Date of Service: July 26, 2024 Time of Service: 10:29 SUBJECTIVE: 59-year-old female the past medical history of hypertension who presented to the hospital secondary to abdominal pain. Patient stated for the past 3-4 days she has been having increasing abdominal pain with abdominal distention. She was feeling nauseated and had episodes of emesis at home. She denied any hematemesis, melena, hematochezia. Patient was previously hospitalized in [facility] around one month ago secondary to colitis. GI was consulted during admission and patient underwent colonoscopy with findings showing severe inflammation of the entire colon concerning for pancolitis. She was treated with IV steroids and and was to start patient on Remicade as outpatient. She denied any fever, chills, diarrhea. She was going to follow up with GI as outpatient on 07/26/24 but had worsening pain which caused her to come to the hospital for further evaluation. Labs in the ED were notable for white count of 10.3, hemoglobin was 12.8, platelet count was 363 K, sodium was 138, potassium was 2.8, creatinine is 1.0, blood glucose was 269, lactic acid on presentation was 8.[address] abdomen pelvis which showed free intraperitoneal air concerning for bowel perforation. There is a anterior ventral wall hernia with bowel content and air collection and fat stranding concerning for bowel perforation. Her colon was also noted to be inflamed. CT was performed without contrast. 07/26 BP 135/83, tachycardic 102, saturating 100% 2 L nasal cannula. CBC shows hemoglobin 11.0, hematocrit 35.9, WBC 18.8, platelet count of 203. Sodium 141, potassium 3.7, BUN of 29, creatinine slightly worse today at 1.2. ABG with pH 7.51, pCO2 of 28, PO2 62.6, bicarb of 22.5. Serology to include influenza, SARS and group A negative. Results of chest x-ray pending. Patient is scheduled to be taken to the OR today. REVIEW OF SYSTEMS CONSTITUTIONAL: Denies fevers, chills, or night sweats. No unintentional weight loss reported. NEUROLOGICAL: Denies headache, amaurosis fugax, motor weakness, sensory deficit, vertigo/spinning sensation, gait abnormalities, or tremors. ENT: No hearing loss, otalgia, otorrhea, rhinitis, rhinorrhea, hoarseness, or sore throat. CARDIOVASCULAR: Denies any exertional angina, dyspnea on exertion, orthopnea, paroxysmal nocturnal dyspnea, palpitations, life-threatening arrhythmias, claudication. PULMONARY: Denies any shortness of breath, cough, phlegm/sputum, hemoptysis, pleuritic chest pain. SLEEP: Denies morning headaches, daytime somnolence or napping. Denies difficulty falling asleep, staying asleep, waking from sleep. Denies knowledge of snoring. GASTROINTESTINAL: Positive for abdominal pain, abdominal distention, nausea, vomiting. Denied any melena, hematochezia, hematemesis, diarrhea GENITOURINARY: Denies frequency, urgency, nocturia, hematuria or incontinence (Storage/Irritative symptoms.) Low urinary stream, straining to void, urinary intermittency or hesitancy, splitting of the voiding stream, terminal dribbling. ENDOCRINOLOGIC: Denies polyuria, polydipsia, polyphagia or heat/cold intolerances. HEMATOLOGIC: Denies thrombophilia/previous clots, or coagulopathy/bleeding disorders. ONCOLOGIC: Denies personal history of malignancy. DERMATOLOGIC: Denies rashes or pruritus. PSYCHIATRIC: Denies any suicidal or homicidal ideation. Denies hallucinations. PHYSICAL EXAM GENERAL APPEARANCE: The patient is awake, alert, and oriented, in no acute cardiopulmonary distress. NEUROLOGICAL: Cranial nerves II-XII grossly intact. Motor is 5/5 in bilateral upper and lower extremities proximal to distal. No sensory deficits. HEENT: Face is symmetric. Pupils are equal and reactive. Extraocular movements are intact. NECK: Supple. No JVD. No thyromegaly. No submental, submandibular, pre- /postauricular, occipital or supraclavicular lymphadenopathy. CHEST: Normal chest expansion. No Telemetry. LUNGS: Absence of any rales, rhonchi or any wheezing. CARDIOVASCULAR: Regular. S1 and S2 normal. No appreciable rubs, murmurs or gallops. ABDOMEN: Mildly distended, tympanic : Deferred. No [place]. EXTREMITIES: Non-edematous and not cyanotic. No clubbing. Good capillary refill. SKIN: No skin breakdown. Vital Signs (last 8hr) Date Time Temp Pulse Resp B/P (MAP) Pulse Ox O2 Delivery O2 Flow Rate FiO2 07/26/24 06:43 102 23 125/83 100 Nasal Cannula 2.0 07/26/24 06:28 97 11 97/71 100 Nasal Cannula 2.0 07/26/24 06:14 101 14 112/83 100 Nasal Cannula 2.0 07/26/24 05:58 100 16 107/79 100 Nasal Cannula 2.0 07/26/24 05:43 103 21 120/89 100 Nasal Cannula 2.0 07/26/24 05:29 97 12 97/66 100 Nasal Cannula 2.0 07/26/24 05:13 98 20 110/78 100 Nasal Cannula 2.0 07/26/24 04:58 101 17 109/75 100 Nasal Cannula 2.0 07/26/24 04:43 99 20 102/72 100 Nasal Cannula 2.0 07/26/24 04:28 101 22 120/79 100 Nasal Cannula 2.0 07/26/24 04:13 97.9 102 17 101/69 100 Nasal Cannula 2.0 07/26/24 04:00 100 Nasal Cannula* 2 28 07/26/24 03:58 105 17 124/87 99 Nasal Cannula 2.0 07/26/24 03:43 102 22 110/82 100 Nasal Cannula 2.0 07/26/24 03:28 104 21 118/82 100 Nasal Cannula 2.0 07/26/24 03:13 103 21 115/76 100 Nasal Cannula 2.0 07/26/24 02:58 105 21 114/82 99 Nasal Cannula 2.0 07/26/24 02:43 105 21 114/72 100 Nasal Cannula 2.0 LABS: Laboratory: Test 07/26/24 07:24 07/26/24 06:06 07/26/24 00:45 07/25/24 20:27 Range/Units Whole Blood Glucose 171 H 70-110 MG/DL White Blood Count 18.8 #H 4.8-10.8 K/uL Red Blood Count 4.16 4.00-5.50 MIL/uL Hemoglobin 11.0 L 12.0-16.0 g/dL Hematocrit 35.9 L 36-48 % Mean Corpuscular Volume 86.3 79-99 fL Mean Corpuscular Hemoglobin 26.4 L 27.0-33.0 pg Mean Corpuscular Hemoglobin Concent 30.6 L 32.0-36.0 g/dL Red Cell Distribution Width 18.6 H 11.0-15.5 % Platelet Count 203 # 130-400 K/uL Mean Platelet Volume 9.9 7.5-10.5 fL Immature Granulocyte % (Auto) 1.7 H 0-1 % Neutrophils (%) (Auto) 89.4 H 40.0-77.0 % Lymphocytes (%) (Auto) 7.0 L 21.0-51.0 % Monocytes (%) (Auto) 1.9 L 3.0-13.0 % Eosinophils (%) (Auto) 0.0 0.0-8.0 % Basophils (%) (Auto) 0.0 0.0-5.0 % Neutrophils # (Auto) 16.8 H 1.8-7.7 K/uL Lymphocytes # (Auto) 1.3 1.0-4.8 K/uL Monocytes # (Auto) 0.4 0.1-1.0 K/uL Eosinophils # (Auto) 0.00 0.00-0.70 K/uL Basophils # (Auto) 0.00 0.00-0.20 K/uL Absolute Immature Granulocyte (auto 0.32 0-1 K/uL Nucleated Red Blood Cells 0.1 0.0-0.19 % White Cell Morphology Comment See comments Sodium Level 141 136-145 mmol/L Potassium Level 3.7 3.5-5.1 mmol/L Chloride Level 106 101-111 mmol/L Carbon Dioxide Level 27 21-32 mmol/L Blood Urea Nitrogen 29 H 7-18 mg/dL Creatinine 1.2 H 0.5-1.0 mg/dL Glomerular Filtration Rate Calc 52 >90 mL/min Random Glucose 202 H 70-105 mg/dL Total Calcium 7.5 L 8.5-10.1 mg/dL Influenza Type A Antigen Negative For Type A NEGATIVE Influenza Type B Antigen Negative For Type B NEGATIVE SARS-CoV-2 Antigen (Rapid) PRESUMPTIVE NEGATIVE NEGATIVE Group A Streptococcus Rapid negative NEGATIVE Lactic Acid Level 1.8 0.8-2.5 mmol/L Test 07/25/24 20:16 07/25/24 18:47 07/25/24 17:46 07/25/24 17:30 Range/Units Urine Color YELLOW YELLOW Urine Appearance CLOUDY H CLEAR Urine pH 6.0 5.0-8.0 Urine Specific [place] 1.027 1.001-1.031 Urine Protein 30 H NEGATIVE mg/dL Urine Glucose (UA) 200 H NEGATIVE mg/dL Urine Ketones NEGATIVE NEGATIVE mg/dL Urine Occult Blood NEGATIVE NEGATIVE Urine Nitrate NEGATIVE NEGATIVE Urine Bilirubin NEGATIVE NEGATIVE mg/dL Urine Urobilinogen 2.0 H 0.2-1.0 mg/dL Urine Leukocyte Esterase NEGATIVE NEGATIVE Miguel/uL Urine RBC 6-10 H 0-1 /HPF Urine WBC 6-10 H 0-1 /HPF Urine Squamous Epithelial Cells RARE 0-2 /HPF Urine Other Crystals (Auto) 4 None Seen /HPF Urine Bacteria None None Seen /HPF Blood Gas Specimen Type Arterial Arterial Blood pH 7.519 H 7.350-7.450 Arterial Blood Partial Pressure CO2 28 L 32-45 mmHg Arterial Blood Partial Pressure O2 62.6 L 83.0-108.0 mmHg Arterial Blood HCO3 22.5 21.0-28.0 mmol/L Arterial Blood Oxygen Saturation 91.5 L 94.0-98.0 % Arterial Blood Base Excess 0.5 -2.0-3.0 mmol/L Hemoglobin (Blood Gas) 12.0 12.0-16.0 g/dL Sodium (Blood Gas) 134 L 136-145 MMOL/L Bedside Potassium (Blood Gas) 3.0 *L 3.4-4.5 MMOL/L Bedside Chloride (Blood Gas) 101 98-107 MMOL/L Bedside Glucose (Blood Gas) 240 H 65-95 MG/DL Bedside Ionized Calcium (Blood Gas) 1.05 L 1.15-1.33 MMOL/L Bedside Lactic Acid (Blood Gas) 2.13 H 0.36-0.75 MMOL/L Blood Gas Temperature 37.0 35.5-37.0 CELSIUS Blood Gas Vent Mode RA ROOM AIR FiO2 21.0 % Blood Gas Specimen Comment RR RN Hemoglobin A1c 8.1 H 4.0-6.0 % Estimated Average Glucose (eAG) 186 H 70-126 mg/dL Procalcitonin 11.46 H 0.05-0.5 ng/mL Magnesium Level 1.40 L 1.80-2.40 mg/dL Test 07/25/24 15:30 Range/Units Red Blood Cell Morphology See comments Activated Partial Thromboplast Time 31.7 26.3-35.5 SEC Total Creatine Kinase 15 L 21-232 U/L Troponin I High Sensitivity 10 4-50 ng/L Current Medications Medications (Trade) Dose Ordered Sig/Alexandra Route PRN Reason Start Time Stop Time Status Last Admin Dose Admin Famotidine (Pepcid 20mg Vial) 20 mg Q24H IV 07/25/24 21:00 08/24/24 20:59 07/25/24 21:21 20 MG Insulin Human Regular (humuLIN R 100 UNIT/ML 3ML) INSULIN SLIDING SCAL... Q6H6 SQ 07/26/24 00:00 08/25/24 00:00 07/26/24 00:41 3 UNIT Magnesium Sulfate 50 ml @ 0 mls/hr PROTOCOL PRN IV hypomagnesemia 07/25/24 18:00 08/24/24 17:59 07/25/24 19:19 25 MLS/HR Ondansetron HCl (zoFRAN 4MG INJ) 4 mg Q6H PRN IVP NAUSEA/VOMITING 07/25/24 18:00 08/24/24 17:59 Piperacillin Sod/ Tazobactam Sod (Zosyn 3.375gm+NS 50ml) 3.375 gm Q12H IV 07/25/24 20:00 07/25/24 17:27 DC Piperacillin Sod/ Tazobactam Sod (Zosyn 3.375gm+NS 50ml) 3.375 gm Q8H IVPB 07/25/24 19:00 08/04/24 18:59 07/26/24 03:51 3.375 GM Piperacillin Sod/ Tazobactam Sod (Zosyn 3.375gm+NS 50ml) 3.375 gm Q8H IVPB 07/25/24 20:00 07/25/24 18:49 DC Potassium Chloride 100 ml @ 50 mls/hr AD PRN IV POTASSIUM PROTOCOL 07/25/24 18:00 08/24/24 17:59 07/25/24 23:09 50 MLS/HR Sodium Chloride 1,000 ml @ 125 mls/hr Q8H IV 07/25/24 17:30 08/24/24 17:29 07/26/24 08:34 125 MLS/HR Sodium Chloride (NS 50ml) 50 ml AD IV 07/25/24 17:00 07/25/24 17:29 DC Vancomycin HCl 250 ml @ 125 mls/hr Q24H IV 07/26/24 17:00 08/05/24 16:59 Vancomycin HCl (Vancomycin Protocol) 1 each AD IV 07/25/24 17:00 08/08/24 16:59 DIAGNOSTICS / RADIOLOGY: [ ] CT ABDOMEN WITH CONTRAST. CT PELVIS WITH CONTRAST INDICATION: Perforated bowel? TECHNIQUE: Routine transaxial images using 5 mm slice thickness were obtained after the intravenous infusion of 75 mL of Omnipaque 350 without adverse effects. Oral contrast was not administered. Rectal contrast was not administered. Coronal and sagittal reformatted images acquired for interpretation. CT was performed with one or more of the following dose reduction techniques: Automated exposure control, adjustment of the mA and/or kV according to patient size, or use of iterative reconstruction technique. COMPARISON: 07/25/2024 FINDINGS/IMPRESSION: Unchanged pneumoperitoneum and moderate air, fat, and small bowel loop-containing ventral hernia suggesting viscous perforation, and secondary mild submucosal edema and mild mucosal enhancement along the upstream jejunal loops compatible with enteritis or evolving ischemic bowel, without bowel obstruction at this juncture. Remainder of the study is also unchanged. General surgery consult is recommended. ASSESSMENT: Perforated bowel POA Anterior ventral wall hernia with bowel contents and air collection concerning for bowel perforation History of [place] colitis status post colonoscopy one month ago treated with IV steroids with concern for IBD Lactic acidosis Hypokalemia Hyperglycemia secondary to diabetes mellitus type 2 Obesity BMI 35.1 PLAN: The patient remains admitted to the intensive care unit Critical Care consulted, follow input and recommendation Keep the patient NPO Surgical consultation requested, follow input and recommendation. GI consultation requested, follow input and recommendation ID input consultation requested, follow input and recommendation The patient on broad-spectrum IV antibiotics Continue supportive care with IV fluids and replace electrolytes IV per protocol Prognosis is guarded NEURO: Minimize central acting medications as possible. Fall Precautions. Well lighted room through the day and minimize interruptions through the night to prevent acute delirium. PULMONARY: Supplemental 02 as needed BiPAP as necessary, for respiratory distress Titrate Fio2 to keep Spo2 > or = 90% DuoNebs and CPT as needed IS hourly while awake for pulmonary hygiene prn Out of bed to chair as tolerated Maintain aspiration precautions at all times CARDIOVASCULAR: Follow hemodynamics. Vital signs per facility protocol GI & NUTRITION: Continue nutritional support Aspirations precautions Prokinetic agents and laxatives as needed KIDNEYS & ELECTROLYTES: Strict monitoring of intake and output Daily weights Avoid nephrotoxic agents Monitor electrolytes and replace as needed Goal urine output of 30mL/hr or 0.5mL/kg/hr Medications to be dosed according to renal function. Avoid contrast if possible ENDOCRINE: Maintain blood glucose between 100-180 at all times. Insulin sliding scale for blood glucose management Hypoglycemia and hyperglycemia protocol in place INFECTIOUS DISEASE: Trend temperature, WBC and procalcitonin level Follow cultures, deescalate antibiotics as soon as possible. Panculture if new onset fever HEMATOLOGY & COAGULATION: Monitor H&H. Keep Hgb > 7 Transfuse 1 unit of PRBC for Hgb < 7 Transfuse 1 pack of platelets of platelets < 20, 000 Watch for any signs and symptoms of bleeding SKIN: Pressure ulcer prevention per facility protocol Specialty mattress as needed ORTHO/REHAB Continue PT/OT PRN: MEDICATIONS Tylenol 650 mg po every 4 hrs for fever zofran 4 mg IV every 6 hrs for n/v Hydralazine 5 mg IV every 4 hrs systolic pressure > 160 bowel regiment: lactulose 20 gm PO BID PRN constipation Supportive measures: Continue GI and DVT prophylaxis Disposition: Pending improvement in clinical condition All questions answered time spent: > 35 min MICKEY FINNEY MD July 26, 2024 10:35
--- NOTE | 2024-07-26 10:35 | NUR ---
patient was taken to OR at 9:51.
[2024-07-26] MEDS ORDERED: ketaMINE 50MG/ML SYRINGE 50 MG/ML DISP.SYRIN ONE (10:46)
[2024-07-26] MEDS ORDERED: LIDOCAINE HCL 1% 20 ML VIAL ONE (10:54)
[2024-07-26] MEDS ORDERED: BUPIvacaine/PF 0.5% 30ML VIAL ONE (10:54)
[2024-07-26] MEDS ORDERED: ePHEDrine SULFate 50 MG/ML AMPULE ONE (10:56)
[2024-07-26] MEDS ORDERED: dexaMETHasone SOD PHOSPHATE 10MG/ML 1ML VIAL ONE (11:10)
[2024-07-26] MEDS ORDERED: ondanSETRON 4MG INJ ONE (11:10)
[2024-07-26] MEDS ORDERED: phenylEPHRINE HCL 10 MG/ML 1ML VIAL IV ONE (11:15)
[2024-07-26] MEDS: ceFAZolin SODIUM 1 GM VIAL IRRIG ONE (11:30)
[2024-07-26] MEDS ORDERED: ALBUMIN (HUMAN) 5% 250 ML IV ONE (11:36)
[2024-07-26 11:49] LABS: ABG BASE EXCESS -4.9 mmol/L (-2.0-3.0); ABG HCO3 19.9 mmol/L (21.0-28.0); ABG OXYGEN SATURATION 99.2 % (94.0-98.0); ABG PCO2 36 mmHg (32-45); ABG PH 7.364 (7.350-7.450); CARBON MONOXIDE 0.3 % (0.5-1.5); HHb 0.8; PO2, ARTERIAL BG 218.6 mmHg (83.0-108.0); VENT MODE, BG ANT VENT (ROOM AIR)
[2024-07-26] MEDS ORDERED: ROPivacaine 0.5% 5MG/ML 30ML ONE (12:13)
--- NOTE | 2024-07-26 12:52 | HMCIMG ---
CHEST 1VW HISTORY: Post PICC line insertion COMPARISON: None FINDINGS: A frontal projection of the chest was obtained. Prominent interstitial markings are seen with possible superimposed infiltrates. The heart is borderline enlarged. PICC line is seen entering from the left with distal tip in the plane of the superior vena cava. Artery calcifications are seen. IMPRESSION: 1. Prominent interstitial markings are seen with possible superimposed infiltrates.
--- NOTE | 2024-07-26 13:06 | NUR ---
Patient came back from OR. Patient is vented and currently sedated. Spoke to Angie Jocye CRNA, ordered Jose Armando drip for vasopressor support. Provider also ordered propofol for sedation.
[2024-07-26] MEDS ORDERED: FENTanyl 1000MCG+NS 100ML 100 ML IV SCH (13:30)
[2024-07-26] MEDS ORDERED: MIDAZOLAM 50MG-0.9% NS 50ML 50 ML IV SCH (13:30)
[2024-07-26] MEDS: proPOFol 1000 MG/100 ML 100 ML IV PRN (13:37)
[2024-07-26] MEDS: acetaMINOPHEN 100 ML ONE (13:40)
[2024-07-26] MEDS: FAMOTIDINE 20MG VIAL IV ONE (13:40)
[2024-07-26] MEDS: PoTASSium chloRIDE 20MEQ/100ML 100 ML IV ONE (13:43)
[2024-07-26] MEDS: fluCONazole 200 MG/NS 100 ML 100 ML IV SCH (13:43)
[2024-07-26 13:52] LABS: ABG BASE EXCESS -8.6 mmol/L (-2.0-3.0); ABG HCO3 17.1 mmol/L (21.0-28.0); ABG OXYGEN SATURATION 97.3 % (94.0-98.0); ABG PCO2 36 mmHg (32-45); ABG PH 7.293 (7.350-7.450); CARBON MONOXIDE 0.1 % (0.5-1.5); HHb 2.7; PO2, ARTERIAL BG 112.8 mmHg (83.0-108.0); VENT MODE, BG AC (ROOM AIR)
[2024-07-26] MEDS: CALCIUM GLUC 1GM 1 GM in 0.9%NACL 100ML 100 ML IV ONE (14:50)
[2024-07-26] MEDS: SODIUM BICARB 50MEQ 50ML VIAL IV ONE (14:55)
[2024-07-26 16:10] LABS: ABG BASE EXCESS -2.8 mmol/L (-2.0-3.0); ABG HCO3 20.6 mmol/L (21.0-28.0); ABG OXYGEN SATURATION 98.2 % (94.0-98.0); ABG PCO2 32 mmHg (32-45); ABG PH 7.423 (7.350-7.450); PO2, ARTERIAL BG 111.6 mmHg (83.0-108.0); VENT MODE, BG AC (ROOM AIR)
--- NOTE | 2024-07-26 17:05 | HMCIMG ---
CHEST 1VW HISTORY: Intubation COMPARISON: 07/25/2024 FINDINGS: A frontal projection of the chest was obtained. Bilateral lower lung infiltrates. The heart is borderline enlarged. All the lines and tubes are again seen in place. No evidence of aortic calcification is seen. IMPRESSION: 1. Bilateral lower lung infiltrates.
[2024-07-26] MEDS: phenylEPHRINE HCL 100 MG in 0.9% NACL 250ML 240 ML IV PRN (18:16)
[2024-07-26] MEDS: VANCOMYCIN 1.75 GM/250 ML BAG 250 ML IV SCH (19:55)
[2024-07-26] MEDS: ceFEPime HCL 2 GM VIAL IVPB SCH (22:54)
[2024-07-27] VITALS (108 sets, daily range): BP systolic 92–146; BP diastolic 57–90; PULSE 65–104; RESP 4–20; TEMP 97.7–98.5; O2SAT 99–100
[2024-07-27 04:03] LABS: ABG BASE EXCESS -3.5 mmol/L (-2.0-3.0); ABG HCO3 20.6 mmol/L (21.0-28.0); ABG OXYGEN SATURATION 98.5 % (94.0-98.0); ABG PCO2 34 mmHg (32-45); ABG PH 7.402 (7.350-7.450); CARBON MONOXIDE 0.3 % (0.5-1.5); HHb 1.5; PO2, ARTERIAL BG 145.2 mmHg (83.0-108.0); VENT MODE, BG AC VC (ROOM AIR)
[2024-07-27 04:28] LABS: BASOPHILS # (AUTO) 0.17 K/uL (0.00-0.20); BASOPHILS % (AUTO) 0.6 % (0.0-5.0); EOSINOPHILS # (AUTO) 0.01 K/uL (0.00-0.70); HEMATOCRIT 30.8 % (36-48); IMMATURE GRANULOCYTE ABSOLUTE 0.69 K/uL (0-1); LYMPHOCYTES # (AUTO) 1.2 K/uL (1.0-4.8); LYMPHOCYTES % (AUTO) 4.3 % (21.0-51.0); MEAN CORPUSCULAR HEMOGLOBIN 27.5 pg (27.0-33.0); MEAN CORPUSCULAR HGB CONC 31.5 g/dL (32.0-36.0); MEAN CORPUSCULAR VOLUME 87.3 fL (79-99); MONOCYTES # (AUTO) 0.4 K/uL (0.1-1.0); MONOCYTES % (AUTO) 1.4 % (3.0-13.0); NEUTROPHILS # (AUTO) 25.7 K/uL (1.8-7.7); NEUTROPHILS % (AUTO) 91.2 % (40.0-77.0); PLATELET COUNT (AUTO) 148 K/uL (130-400); RED BLOOD CELL COUNT(AUTO) 3.53 MIL/uL (4.00-5.50); RED CELL DISTRIBUTION WIDTH 18.6 % (11.0-15.5); WHITE BLOOD COUNT (AUTO) 28.1 K/uL (4.8-10.8)
[2024-07-27 04:45] LABS: ALBUMIN 1.5 g/dL (3.5-5.0); CREATININE 1.1 mg/dL (0.5-1.0); MAGNESIUM 1.6 mg/dL (1.80-2.40); TOTAL PROTEIN, SERUM 3.8 g/dL (6.0-8.3)
[2024-07-27 05:06] LABS: POTASSIUM 2.9 mmol/L (3.5-5.1)
--- NOTE | 2024-07-27 10:41 | PN ---
[facility] PROGRESS NOTE Date Patient Seen: July 27, 2024 Time of Visit: 10:41 Supervising Physician: Chi Kearney MD Primary Care Physician: [Dr. Villarreal of [facility] ] Outpatient Specialists: [GI: Dr. Solitario ] Inpatient Consults: [Dr. Quintero of surgery ] PROBLEM LIST: Septic shock requiring pressors Bacterial peritonitis POA Bowel perforation w/ [id number] S/P exploratory laparotomy with drainage of intra-abdominal abscess/ventral hernia repair/small-bowel resection/NS of adhesions/left open and a wound VAC on 07/26/24 per High risk for ischemic bowel-POA Intractable abdominal pain-POA Acute hypokalemia-POA this is Dehydration-POA SHARMILA not POA Lactic acidosis-POA Hyperglycemia 2/2 uncontrolled diabetes mellitus Primary HTN HX of colitis HX of inflammatory bowel disease (Crohn's Disease) HX of cardiac arrest HX of BLE cellulitis Recent hospitalization for UTI with outpatient Zosyn antibiotic with Dr. Ha beltran INTERVAL HISTORY: Day #1 post op. She was sedated on propofol and fentanyl drip and intubated on mechanical ventilation. Settings of assist control volume control respiratory rate of 12 tidal volume 400 and FiO2 50% and PEEP of 5. Respiratory rate of 16 saturating 97%. She was also on Jose Armando-Synephrine at 0.7 mcg/kg per minute with a goal of MAP above 65. Map is maintaining above 65 and heart rate in the 80s. T-max of 98.2 and T low of 96.8 In the last24 hours. She remains critical. Wound VAC to mid abdominal incision. Urine output 450 mL daily weight similar to yesterday 81.6 kg. ABG with pH of 7.40 pCO2 of34 PO2 of145 and bicarb of 20.6. On CBC white count increased to 28.1 May be combination of sepsis and reactive post surgery. H&H is 9.7/38.8 Slightly decreased from yesterday which was /35.9 chemistries sodium is145 potassium was 2.9 covered per protocol now 3.6 and repeat creatinine of 1.1 GFR of58 glucose of 179 mg/dL magnesium of 1.60, per protocol mild liver enzymes elevations total bili 1.0 albumin of 1.5 total protein 3.8. Hemoglobin A1c 8.1. Intra-abdominal culture results with Gram-negative rods. On chest x-ray right IJ line in place ET tube in good position. NG tube in good position. No pneumothorax. REVIEW OF SYSTEMS: Unable to perform due to patient's intubated. PHYSICAL EXAM: GENERAL: Critically ill, intubated. HEENT: Sclera non icteric, moist mucosa pupils3 mm echo and sluggish NECK: Supple, no JVD, trachea midline right IJ Cordis LUNGS: Diminished breath sounds bilaterally. No wheezes HEART: Regular rate and rhythm. Normal S1 and S2, without murmurs ABD: Obese abdomen, wound VAC to mid abdomen incision. EXT: No clubbing cyanosis or edema. [place] in situ NEURO: Sedated and intubated. Vital Signs (last 8hr) Date Time Temp Pulse Resp B/P (MAP) Pulse Ox O2 Delivery O2 Flow Rate FiO2 07/27/24 09:50 79 40 07/27/24 09:00 83 20 130/79 (96) 100 116/75 (89) 07/27/24 08:45 79 14 129/76 (93) 100 111/73 (86) 07/27/24 08:30 81 17 127/77 (94) 100 114/73 (87) 07/27/24 08:15 82 17 124/78 (93) 100 108/70 (83) 07/27/24 08:00 80 12 129/78 (95) 100 122/79 (93) 07/27/24 08:00 100 Ventilator+ 40 07/27/24 08:00 98.2 07/27/24 08:00 40 07/27/24 07:45 81 12 121/75 (90) 100 112/77 (89) 07/27/24 07:30 80 12 126/78 (94) 100 118/76 (90) 07/27/24 07:15 81 20 127/78 (94) 100 127/77 (94) 07/27/24 07:13 85 40 07/27/24 07:00 81 12 125/77 (93) 99 07/27/24 06:59 83 4 123/76 (92) 99 126/78 (94) 07/27/24 06:43 79 134/82 (99) 91 131/82 (98) 07/27/24 06:28 78 125/77 (93) 119/75 (90) 07/27/24 06:13 79 126/77 (93) 98 116/77 (90) 07/27/24 05:58 78 4 124/76 (92) 100 117/78 (91) 07/27/24 05:43 79 14 125/77 (93) 87 123/78 (93) 07/27/24 05:40 80 11 127/78 (94) 100 07/27/24 05:28 75 15 133/80 (97) 96 123/76 (92) 07/27/24 05:25 76 17 129/78 (95) 97 07/27/24 05:14 76 17 131/78 (95) 98 125/81 (96) 07/27/24 05:10 77 17 132/79 (96) 95 07/27/24 04:58 77 14 136/82 (100) 100 128/81 (97) 07/27/24 04:55 76 17 129/77 (94) 98 07/27/24 04:43 76 17 131/79 (96) 96 120/79 (93) 07/27/24 04:40 75 17 133/78 (96) 100 07/27/24 04:28 75 17 137/82 (100) 97 122/84 (97) 07/27/24 04:25 74 17 132/78 (96) 98 07/27/24 04:13 75 17 139/82 (101) 100 126/85 (99) 07/27/24 04:10 97.7 07/27/24 04:00 100 Ventilator+ 40 07/27/24 04:00 40 07/27/24 03:53 66 40 07/27/24 03:14 65 18 103/60 (74) 100 102/65 (77) 07/27/24 02:59 66 16 103/61 (75) 100 106/67 (80) 07/27/24 02:44 66 10 104/61 (75) 100 106/67 (80) LABS: Hematology Labs: Test 07/27/24 04:02 07/26/24 06:06 07/25/24 15:30 Range/Units White Blood Count 28.1 #H 4.8-10.8 K/uL Red Blood Count 3.53 L 4.00-5.50 MIL/uL Hemoglobin 9.7 L 12.0-16.0 g/dL Hematocrit 30.8 L 36-48 % Mean Corpuscular Volume 87.3 79-99 fL Mean Corpuscular Hemoglobin 27.5 27.0-33.0 pg Mean Corpuscular Hemoglobin Concent 31.5 L 32.0-36.0 g/dL Red Cell Distribution Width 18.6 H 11.0-15.5 % Platelet Count 148 # 130-400 K/uL Mean Platelet Volume 10.9 H 7.5-10.5 fL Immature Granulocyte % (Auto) 2.5 H 0-1 % Neutrophils (%) (Auto) 91.2 H 40.0-77.0 % Lymphocytes (%) (Auto) 4.3 L 21.0-51.0 % Monocytes (%) (Auto) 1.4 L 3.0-13.0 % Eosinophils (%) (Auto) 0.0 0.0-8.0 % Basophils (%) (Auto) 0.6 0.0-5.0 % Neutrophils # (Auto) 25.7 H 1.8-7.7 K/uL Lymphocytes # (Auto) 1.2 1.0-4.8 K/uL Monocytes # (Auto) 0.4 0.1-1.0 K/uL Eosinophils # (Auto) 0.01 0.00-0.70 K/uL Basophils # (Auto) 0.17 0.00-0.20 K/uL Absolute Immature Granulocyte (auto 0.69 0-1 K/uL Nucleated Red Blood Cells 0.0 0.0-0.19 % White Cell Morphology Comment See comments Red Blood Cell Morphology See comments Chemistry Labs: Test 07/27/24 08:50 07/27/24 06:24 07/27/24 04:02 07/25/24 20:27 Range/Units Potassium Level 3.6 3.5-5.1 mmol/L Whole Blood Glucose 155 H 70-110 MG/DL Sodium Level 145 136-145 mmol/L Chloride Level 108 101-111 mmol/L Carbon Dioxide Level 22 21-32 mmol/L Blood Urea Nitrogen 30 H 7-18 mg/dL Creatinine 1.1 H 0.5-1.0 mg/dL Glomerular Filtration Rate Calc 58 >90 mL/min Random Glucose 179 H 70-105 mg/dL Total Calcium 7.3 L 8.5-10.1 mg/dL Magnesium Level 1.60 L 1.80-2.40 mg/dL Total Bilirubin 1.0 0.2-1.0 mg/dL Aspartate Amino Transf (AST/SGOT) 14 10-37 U/L Alanine Aminotransferase (ALT/SGPT) 8 L 12-78 U/L Alkaline Phosphatase 150 H 50-136 U/L Total Protein 3.8 L 6.0-8.3 g/dL Albumin 1.5 L 3.5-5.0 g/dL Lactic Acid Level 1.8 0.8-2.5 mmol/L Test 07/25/24 17:46 07/25/24 15:30 Range/Units Hemoglobin A1c 8.1 H 4.0-6.0 % Estimated Average Glucose (eAG) 186 H 70-126 mg/dL Procalcitonin 11.46 H 0.05-0.5 ng/mL Total Creatine Kinase 15 L 21-232 U/L Troponin I High Sensitivity 10 4-50 ng/L Coagulation Labs: Test 07/25/24 15:30 Range/Units Activated Partial Thromboplast Time 31.7 26.3-35.5 SEC DIAGNOSTICS / RADIOLOGY RESULTS: [Signed PATIENT: AMADA ROBLEDO MR#: [id number] : 1965 SEX: F AGE: 59 LOCATION: [facility] ORDER 1028 STATUS: ADM IN REPORT#: [id number] SERVICE 1025 REASON: intubated ORDERING PHYSICIAN: NIKA HAIRSTON PROCEDURE: CXR1VW - CHEST 1VW Exam Type: CHEST 1VW Clinical Information: intubated Comparison: None Findings: Pulmonary pattern is as before. No worrisome interval changes have taken place. Impression: Stable exam. DICTATED BY: ELIA MURRAY MD DATE: 07/27/24 1448 ELECTRONICALLY SIGNED BY: ELIA MURRAY MD DATE: 07/27/24 1452 ] PLAN NEURO: Minimize central acting medications as possible. Fall Precautions. Well lighted room through the day and minimize interruptions through the night to prevent acute delirium. -patient will be going back to the OR in 24-48 hours. -Maintain sedated and intubated for now surgeon with plans to take patient back in 24-48 hours to OR PULMONARY: Titrate Fio2 to keep Spo2 > or = 90% DuoNebs and CPT as needed IS hourly while awake for pulmonary hygiene once extubated Out of bed to chair as tolerated once extubated Mechanical ventilation: AC/VC tidal volume 400 respiratory rate of 12 FiO2 of 50% and PEEP of 5. Plateau pressure goal of less than 30 ABG in the morning Manage ventilator per ABG CARDIOVASCULAR: Follow hemodynamics. # septic shock -Titrate vasopressor to keep MAP >65 or systolic blood pressure >95mmHg -maintain map above 65, on Jose Armando-Synephrine due to tachycardia DRIPS: Jose Armando-Synephrine TPN 75 mL/hour Fentanyl Propofol LINES: Right IJ CVC GI & NUTRITION: Continue nutritional support Aspirations precautions TPN for nutrition for now Follow General surgery recs KIDNEYS & ELECTROLYTES: Strict monitoring of intake and output Daily weights Avoid nephrotoxic agents Monitor electrolytes and replace as needed Goal urine output of 30mL/hr or 0.5mL/kg/hr ENDOCRINE: Maintain blood glucose between 100-180 at all times. Insulin sliding scale for blood glucose management Hemoglobin A1c 8.1 -Lantus5 units q.h.s. -ISS q.6 hours Avoid hypoglycemia INFECTIOUS DISEASE: Trend temperature. Lawson-culture if febrile. Micro: [ ] 07/26/24 Intra-abdominal fluid culture growing Gram-negative rods 07/25/24 blood cultures with no growth Antibiotics: Meropenem Fluconazole HEMATOLOGY & COAGULATION: Monitor H&H. Keep Hgb > 7 Transfuse 1 unit of PRBC for Hgb < 7 Transfuse 1 pack of platelets of platelets < 20, 000 Watch for any signs and symptoms of bleeding SKIN: Pressure ulcer prevention per facility protocol Rehab: PT/OT Prophylaxis: GI: famotidine DVT: scd Code Status: Full Resuscitation Disposition: [ icu] Other: Total patient care time exceeds 35 minutes excluding all procedures. Case was discussed and seen with my supervising physician. The above plan was formulated and agreed upon. ATTESTATION BY PHYSICIAN I have evaluated the patient chart, medical records, and spoke with appropriate staff. I reviewed the documentation, medical decision making, and treatment plan as noted by the mid-level provider above. I agree with the findings and plan of care. Chi Kearney MD, [facility] July 27, 2024 10:41
[2024-07-27] MEDS: ALBUMIN (HUMAN) 5% 250 ML IV ONE (10:50)
--- NOTE | 2024-07-27 11:36 | PN ---
[facility] PROGRESS NOTE Date of Service: July 27, 2024 Time of Service: 11:32 SUBJECTIVE: 59-year-old female the past medical history of hypertension who presented to the hospital secondary to abdominal pain. Patient stated for the past 3-4 days she has been having increasing abdominal pain with abdominal distention. She was feeling nauseated and had episodes of emesis at home. She denied any hematemesis, melena, hematochezia. Patient was previously hospitalized in [facility] around one month ago secondary to colitis. GI was consulted during admission and patient underwent colonoscopy with findings showing severe inflammation of the entire colon concerning for pancolitis. She was treated with IV steroids and and was to start patient on Remicade as outpatient. She denied any fever, chills, diarrhea. She was going to follow up with GI as outpatient on 07/26/24 but had worsening pain which caused her to come to the hospital for further evaluation. Labs in the ED were notable for white count of 10.3, hemoglobin was 12.8, platelet count was 363 K, sodium was 138, potassium was 2.8, creatinine is 1.0, blood glucose was 269, lactic acid on presentation was 8.[address] abdomen pelvis which showed free intraperitoneal air concerning for bowel perforation. There is a anterior ventral wall hernia with bowel content and air collection and fat stranding concerning for bowel perforation. Her colon was also noted to be inflamed. CT was performed without contrast. 07/26 BP 135/83, tachycardic 102, saturating 100% 2 L nasal cannula. CBC shows hemoglobin 11.0, hematocrit 35.9, WBC 18.8, platelet count of 203. Sodium 141, potassium 3.7, BUN of 29, creatinine slightly worse today at 1.2. ABG with pH 7.51, pCO2 of 28, PO2 62.6, bicarb of 22.5. Serology to include influenza, SARS and group A negative. Results of chest x-ray pending. Patient is scheduled to be taken to the OR today. 07/27 the patient remains admitted to the intensive care unit, intubated, on mechanical ventilation, status post exploratory laparotomy, postoperative day one, case discussed with the RN, patient on propofol, Jose Armando-Synephrine, wound VAC to the abdomen in place, noted to have right IJ line in place. Getting broad- spectrum IV antibiotics. Blood pressure 130/79, heart rate of 83, saturating 100% on mechanical ventilation, FiO2 40%. Leukocytosis is worse today at 28.1, drop in hemoglobin to 9.7, hematocrit 30.8, with a platelet count of 148. Potassium level 3.6, magnesium 1.6. Lactic acid from 8.2 down to 1.8 ABG with pH 7.4, pCO2 34, PO2 145, bicarb of 20. Chest x-ray shows bilateral lower lung infiltrates. Family at Bedside, updated REVIEW OF SYSTEMS CONSTITUTIONAL: Denies fevers, chills, or night sweats. No unintentional weight loss reported. NEUROLOGICAL: Denies headache, amaurosis fugax, motor weakness, sensory def icit, vertigo/spinning sensation, gait abnormalities, or tremors. ENT: No hearing loss, otalgia, otorrhea, rhinitis, rhinorrhea, hoarseness, or sore throat. CARDIOVASCULAR: Denies any exertional angina, dyspnea on exertion, orthopnea, paroxysmal nocturnal dyspnea, palpitations, life-threatening arrhythmias, claudication. PULMONARY: Denies any shortness of breath, cough, phlegm/sputum, hemoptysis, pleuritic chest pain. SLEEP: Denies morning headaches, daytime somnolence or napping. Denies difficulty falling asleep, staying asleep, waking from sleep. Denies knowledge of snoring. GASTROINTESTINAL: Positive for abdominal pain, abdominal distention, nausea, vomiting. Denied any melena, hematochezia, hematemesis, diarrhea GENITOURINARY: Denies frequency, urgency, nocturia, hematuria or incontinence (Storage/Irritative symptoms.) Low urinary stream, straining to void, urinary intermittency or hesitancy, splitting of the voiding stream, terminal dribbling. ENDOCRINOLOGIC: Denies polyuria, polydipsia, polyphagia or heat/cold intolerances. HEMATOLOGIC: Denies thrombophilia/previous clots, or coagulopathy/bleeding disorders. ONCOLOGIC: Denies personal history of malignancy. DERMATOLOGIC: Denies rashes or pruritus. PSYCHIATRIC: Denies any suicidal or homicidal ideation. Denies hallucinations. PHYSICAL EXAM GENERAL APPEARANCE: Patient intubated, on mechanical ventilation. NEUROLOGICAL: Cranial nerves II-XII grossly intact. Motor is 5/5 in bilateral upper and lower extremities proximal to distal. No sensory deficits. HEENT: Face is symmetric. Pupils are equal and reactive. Extraocular movements are intact. NECK: Supple. No JVD. No thyromegaly. No submental, submandibular, pre- /postauricular, occipital or supraclavicular lymphadenopathy. CHEST: Normal chest expansion. No Telemetry. LUNGS: Absence of any rales, rhonchi or any wheezing. CARDIOVASCULAR: Regular. S1 and S2 normal. No appreciable rubs, murmurs or gallops. ABDOMEN: Abdominal wound VAC in place : Deferred. No [place]. EXTREMITIES: Non-edematous and not cyanotic. No clubbing. Good capillary refill. SKIN: No skin breakdown. Vital Signs (last 8hr) Date Time Temp Pulse Resp B/P (MAP) Pulse Ox O2 Delivery O2 Flow Rate FiO2 07/27/24 09:50 79 40 07/27/24 09:00 83 20 130/79 (96) 100 116/75 (89) 07/27/24 08:45 79 14 129/76 (93) 100 111/73 (86) 07/27/24 08:30 81 17 127/77 (94) 100 114/73 (87) 07/27/24 08:15 82 17 124/78 (93) 100 108/70 (83) 07/27/24 08:00 80 12 129/78 (95) 100 122/79 (93) 07/27/24 08:00 100 Ventilator+ 40 07/27/24 08:00 98.2 07/27/24 08:00 40 07/27/24 07:45 81 12 121/75 (90) 100 112/77 (89) 07/27/24 07:30 80 12 126/78 (94) 100 118/76 (90) 07/27/24 07:15 81 20 127/78 (94) 100 127/77 (94) 07/27/24 07:13 85 40 07/27/24 07:00 81 12 125/77 (93) 99 07/27/24 06:59 83 4 123/76 (92) 99 126/78 (94) 07/27/24 06:43 79 134/82 (99) 91 131/82 (98) 07/27/24 06:28 78 125/77 (93) 119/75 (90) 07/27/24 06:13 79 126/77 (93) 98 116/77 (90) 07/27/24 05:58 78 4 124/76 (92) 100 117/78 (91) 07/27/24 05:43 79 14 125/77 (93) 87 123/78 (93) 07/27/24 05:40 80 11 127/78 (94) 100 07/27/24 05:28 75 15 133/80 (97) 96 123/76 (92) 07/27/24 05:25 76 17 129/78 (95) 97 07/27/24 05:14 76 17 131/78 (95) 98 125/81 (96) 07/27/24 05:10 77 17 132/79 (96) 95 07/27/24 04:58 77 14 136/82 (100) 100 128/81 (97) 07/27/24 04:55 76 17 129/77 (94) 98 07/27/24 04:43 76 17 131/79 (96) 96 120/79 (93) 07/27/24 04:40 75 17 133/78 (96) 100 07/27/24 04:28 75 17 137/82 (100) 97 122/84 (97) 07/27/24 04:25 74 17 132/78 (96) 98 07/27/24 04:13 75 17 139/82 (101) 100 126/85 (99) 07/27/24 04:10 97.7 07/27/24 04:00 100 Ventilator+ 40 07/27/24 04:00 40 07/27/24 03:53 66 40 LABS: Laboratory: Test 07/27/24 11:23 07/27/24 08:50 07/27/24 04:02 07/26/24 06:06 Range/Units Whole Blood Glucose 136 H 70-110 MG/DL Potassium Level 3.6 3.5-5.1 mmol/L White Blood Count 28.1 #H 4.8-10.8 K/uL Red Blood Count 3.53 L 4.00-5.50 MIL/uL Hemoglobin 9.7 L 12.0-16.0 g/dL Hematocrit 30.8 L 36-48 % Mean Corpuscular Volume 87.3 79-99 fL Mean Corpuscular Hemoglobin 27.5 27.0-33.0 pg Mean Corpuscular Hemoglobin Concent 31.5 L 32.0-36.0 g/dL Red Cell Distribution Width 18.6 H 11.0-15.5 % Platelet Count 148 # 130-400 K/uL Mean Platelet Volume 10.9 H 7.5-10.5 fL Immature Granulocyte % (Auto) 2.5 H 0-1 % Neutrophils (%) (Auto) 91.2 H 40.0-77.0 % Lymphocytes (%) (Auto) 4.3 L 21.0-51.0 % Monocytes (%) (Auto) 1.4 L 3.0-13.0 % Eosinophils (%) (Auto) 0.0 0.0-8.0 % Basophils (%) (Auto) 0.6 0.0-5.0 % Neutrophils # (Auto) 25.7 H 1.8-7.7 K/uL Lymphocytes # (Auto) 1.2 1.0-4.8 K/uL Monocytes # (Auto) 0.4 0.1-1.0 K/uL Eosinophils # (Auto) 0.01 0.00-0.70 K/uL Basophils # (Auto) 0.17 0.00-0.20 K/uL Absolute Immature Granulocyte (auto 0.69 0-1 K/uL Nucleated Red Blood Cells 0.0 0.0-0.19 % Blood Gas Specimen Type Arterial Arterial Blood pH 7.402 7.350-7.450 Arterial Blood Partial Pressure CO2 34 32-45 mmHg Arterial Blood Partial Pressure O2 145.2 H 83.0-108.0 mmHg Arterial Blood HCO3 20.6 L 21.0-28.0 mmol/L Arterial Blood Oxygen Saturation 98.5 H 94.0-98.0 % Arterial Blood Base Excess -3.5 L -2.0-3.0 mmol/L Hemoglobin (Blood Gas) 10.7 L 12.0-16.0 g/dL Sodium (Blood Gas) 139 136-145 MMOL/L Bedside Potassium (Blood Gas) 3.1 L 3.4-4.5 MMOL/L Bedside Chloride (Blood Gas) 108 H 98-107 MMOL/L Bedside Glucose (Blood Gas) 164 H 65-95 MG/DL Bedside Ionized Calcium (Blood Gas) 1.10 L 1.15-1.33 MMOL/L Bedside Lactic Acid (Blood Gas) 1.08 H 0.36-0.75 MMOL/L Blood Gas Temperature 37.0 35.5-37.0 CELSIUS Blood Gas Respiration Rate 12.0 min. Blood Gas Vent Mode AC VC ROOM AIR FiO2 40.0 % Blood Gas Tidal Volume 400 ml Blood Gas PEEP 5 cm H2O Blood Gas Specimen Comment CAN RN, [place] Sodium Level 145 136-145 mmol/L Chloride Level 108 101-111 mmol/L Carbon Dioxide Level 22 21-32 mmol/L Blood Urea Nitrogen 30 H 7-18 mg/dL Creatinine 1.1 H 0.5-1.0 mg/dL Glomerular Filtration Rate Calc 58 >90 mL/min Random Glucose 179 H 70-105 mg/dL Total Calcium 7.3 L 8.5-10.1 mg/dL Magnesium Level 1.60 L 1.80-2.40 mg/dL Total Bilirubin 1.0 0.2-1.0 mg/dL Aspartate Amino Transf (AST/SGOT) 14 10-37 U/L Alanine Aminotransferase (ALT/SGPT) 8 L 12-78 U/L Alkaline Phosphatase 150 H 50-136 U/L Total Protein 3.8 L 6.0-8.3 g/dL Albumin 1.5 L 3.5-5.0 g/dL White Cell Morphology Comment See comments Test 07/26/24 00:45 07/25/24 20:27 07/25/24 20:16 07/25/24 17:46 Range/Units Influenza Type A Antigen Negative For Type A NEGATIVE Influenza Type B Antigen Negative For Type B NEGATIVE SARS-CoV-2 Antigen (Rapid) PRESUMPTIVE NEGATIVE NEGATIVE Group A Streptococcus Rapid negative NEGATIVE Lactic Acid Level 1.8 0.8-2.5 mmol/L Urine Color YELLOW YELLOW Urine Appearance CLOUDY H CLEAR Urine pH 6.0 5.0-8.0 Urine Specific [place] 1.027 1.001-1.031 Urine Protein 30 H NEGATIVE mg/dL Urine Glucose (UA) 200 H NEGATIVE mg/dL Urine Ketones NEGATIVE NEGATIVE mg/dL Urine Occult Blood NEGATIVE NEGATIVE Urine Nitrate NEGATIVE NEGATIVE Urine Bilirubin NEGATIVE NEGATIVE mg/dL Urine Urobilinogen 2.0 H 0.2-1.0 mg/dL Urine Leukocyte Esterase NEGATIVE NEGATIVE Miguel/uL Urine RBC 6-10 H 0-1 /HPF Urine WBC 6-10 H 0-1 /HPF Urine Squamous Epithelial Cells RARE 0-2 /HPF Urine Other Crystals (Auto) 4 None Seen /HPF Urine Bacteria None None Seen /HPF Hemoglobin A1c 8.1 H 4.0-6.0 % Estimated Average Glucose (eAG) 186 H 70-126 mg/dL Procalcitonin 11.46 H 0.05-0.5 ng/mL Test 07/25/24 15:30 Range/Units Red Blood Cell Morphology See comments Activated Partial Thromboplast Time 31.7 26.3-35.5 SEC Total Creatine Kinase 15 L 21-232 U/L Troponin I High Sensitivity 10 4-50 ng/L Current Medications Medications (Trade) Dose Ordered Sig/Alexandra Route PRN Reason Start Time Stop Time Status Last Admin Dose Admin Cefepime HCl (MAXipime 2 gm vial) 2 gm Q24H IVPB 07/26/24 22:00 08/05/24 21:59 07/26/24 22:54 2 GM Famotidine (Pepcid 20mg Vial) 20 mg Q24H IV 07/25/24 21:00 08/24/24 20:59 07/26/24 22:55 20 MG Fat Emulsion Intravenous 250 ml @ 42 mls/hr QMOFR IV 07/29/24 09:00 08/28/24 08:59 Fentanyl Citrate 100 ml @ 0 mls/hr PROTOCOL IV 07/26/24 13:30 08/02/24 13:29 Fluconazole/ Sodium Chloride 100 ml @ 100 mls/hr Q24H IV 07/26/24 13:30 08/25/24 13:29 07/26/24 13:43 100 MLS/HR Insulin Human Regular (humuLIN R 100 UNIT/ML 3ML) INSULIN SLIDING SCAL... Q6H6 SQ 07/26/24 00:00 08/25/24 00:00 07/26/24 00:41 3 UNIT Magnesium Sulfate 50 ml @ 0 mls/hr PROTOCOL PRN IV hypomagnesemia 07/25/24 18:00 08/24/24 17:59 07/27/24 07:57 25 MLS/HR Midazolam HCl 50 ml @ 0 mls/hr PROTOCOL IV 07/26/24 13:30 08/02/24 13:29 Ondansetron HCl (zoFRAN 4MG INJ) 4 mg Q6H PRN IVP NAUSEA/VOMITING 07/25/24 18:00 08/24/24 17:59 Phenylephrine HCl 100 mg/Sodium Chloride 250 ml @ 0 mls/hr AD PRN IV TITRATE 07/26/24 13:30 08/25/24 13:29 07/26/24 18:16 6.12 MLS/HR Piperacillin Sod/ Tazobactam Sod (Zosyn 3.375gm+NS 50ml) 3.375 gm Q12H IV 07/25/24 20:00 07/25/24 17:27 DC Piperacillin Sod/ Tazobactam Sod (Zosyn 3.375gm+NS 50ml) 3.375 gm Q8H IVPB 07/25/24 19:00 07/26/24 21:40 DC 07/26/24 19:40 3.375 GM Piperacillin Sod/ Tazobactam Sod (Zosyn 3.375gm+NS 50ml) 3.375 gm Q8H IVPB 07/25/24 20:00 07/25/24 18:49 DC Potassium Chloride 100 ml @ 50 mls/hr AD PRN IV POTASSIUM PROTOCOL 07/25/24 18:00 08/24/24 17:59 07/27/24 07:57 50 MLS/HR Propofol 100 ml @ 0 mls/hr AD PRN IV TITRATE 07/26/24 13:30 08/25/24 13:29 07/27/24 07:58 25 MLS/HR Sodium Chloride 1,000 ml @ 125 mls/hr Q8H IV 07/25/24 17:30 08/24/24 17:29 07/27/24 07:58 125 MLS/HR Sodium Chloride (NS 50ml) 50 ml AD IV 07/25/24 17:00 07/25/24 17:29 DC Vancomycin HCl 250 ml @ 125 mls/hr Q24H IV 07/26/24 17:00 08/05/24 16:59 07/26/24 19:55 125 MLS/HR Vancomycin HCl (Vancomycin Protocol) 1 each AD IV 07/25/24 17:00 08/08/24 16:59 DIAGNOSTICS / RADIOLOGY: [ ] ASSESSMENT: Perforated bowel POA status post exploratory laparotomy 07/26/2024 Anterior ventral wall hernia with bowel contents and air collection concerning for bowel perforation History of [place] colitis status post colonoscopy one month ago treated with IV steroids with concern for IBD Lactic acidosis Hypokalemia Hyperglycemia secondary to diabetes mellitus type 2 Obesity BMI 35.1 PLAN: The patient remains admitted to the intensive care unit Remains intubated, on mechanical ventilation Continue vasopressors, wean as tolerated Continue wound VAC Critical Care consulted, follow input and recommendation Continue to follow surgical input and recommendation. Continue the patient on broad-spectrum IV antibiotics, follow ID input and recommendation. Prognosis is guarded NEURO: Minimize central acting medications as possible. Fall Precautions. Well lighted room through the day and minimize interruptions through the night to prevent acute delirium. PULMONARY: Supplemental 02 as needed BiPAP as necessary, for respiratory distress Titrate Fio2 to keep Spo2 > or = 90% DuoNebs and CPT as needed IS hourly while awake for pulmonary hygiene prn Out of bed to chair as tolerated Maintain aspiration precautions at all times CARDIOVASCULAR: Follow hemodynamics. Vital signs per facility protocol GI & NUTRITION: Continue nutritional support Aspirations precautions Prokinetic agents and laxatives as needed KIDNEYS & ELECTROLYTES: Strict monitoring of intake and output Daily weights Avoid nephrotoxic agents Monitor electrolytes and replace as needed Goal urine output of 30mL/hr or 0.5mL/kg/hr Medications to be dosed according to renal function. Avoid contrast if possible ENDOCRINE: Maintain blood glucose between 100-180 at all times. Insulin sliding scale for blood glucose management Hypoglycemia and hyperglycemia protocol in place INFECTIOUS DISEASE: Trend temperature, WBC and procalcitonin level Follow cultures, deescalate antibiotics as soon as possible. Panculture if new onset fever HEMATOLOGY & COAGULATION: Monitor H&H. Keep Hgb > 7 Transfuse 1 unit of PRBC for Hgb < 7 Transfuse 1 pack of platelets of platelets < 20, 000 Watch for any signs and symptoms of bleeding SKIN: Pressure ulcer prevention per facility protocol Specialty mattress as needed ORTHO/REHAB Continue PT/OT PRN: MEDICATIONS Tylenol 650 mg po every 4 hrs for fever zofran 4 mg IV every 6 hrs for n/v Hydralazine 5 mg IV every 4 hrs systolic pressure > 160 bowel regiment: lactulose 20 gm PO BID PRN constipation Supportive measures: Continue GI and DVT prophylaxis Disposition: Pending improvement in clinical condition All questions answered time spent: > 35 min MICKEY FINNEY MD July 27, 2024 11:36
[2024-07-27] MEDS ORDERED: FENTanyl 2500MCG+NS 250ML 250 ML IV SCH (12:00)
[2024-07-27] MEDS: FENTanyl 1000MCG+NS 100ML 100 ML IV SCH (12:29)
[2024-07-27] MEDS: M.V.I. IV [ADULT] 10 ML in CLINIMIX-E 5%AA /D15%W 2000ML 2,000 ML IV ONE (12:58)
--- NOTE | 2024-07-27 14:52 | HMCIMG ---
Exam Type: CHEST 1VW Clinical Information: intubated Comparison: None Findings: Pulmonary pattern is as before. No worrisome interval changes have taken place. Impression: Stable exam.
[2024-07-27] MEDS: PHARMACY COMMUNICATION MISC SCH (15:00)
[2024-07-27] MEDS ORDERED: PHARMACY COMMUNICATION 1 EACH EACH MISC SCH (15:30)
[2024-07-27] MEDS ORDERED: GLUCAGON 1MG KIT 1 MG ML IM PRN (16:00)
[2024-07-27] MEDS: MEROPENEM 1GM 1 GM VIAL IVPB SCH (16:32)
[2024-07-27] MEDS: INSULIN GLARgine 100 UNITS/ML 10 ML VIAL SQ SCH (20:43)
--- NOTE | 2024-07-27 20:50 | PN ---
INFECTIOUS DISEASE FOLLOWUP NOTE DATE OF SERVICE: 07/27/2024. SUBJECTIVE: The patient is seen and examined at bedside. No fever, no chills. Remains intubated on ventilatory support. The patient is still on vasopressor. Family was updated at the bedside. She has been started on TPN, which she is tolerating. No bleeding tendency. PHYSICAL EXAMINATION: VITAL SIGNS: Temperature 98.5. EYES: No icterus. Pupils equal and reactive. HENT: Orally intubated with ventilatory support. NECK: Supple. No JVD or thyromegaly. LUNGS: Crackles bilaterally. No rhonchi. CARDIOVASCULAR: S1, S2, regular. No murmur heard. ABDOMEN: Morbidly obese. Bowel sound is absent . CENTRAL NERVOUS SYSTEM: The patient is sedated. Withdrawal to tactile stimuli. SKIN: No rashes, no itchiness. LYMPHATIC: No peripheral lymphadenopathy. BACK: No deformity, no pressure ulcer. HEMATOLOGIC: No bleeding or petechial lesions seen. MUSCULOSKELETAL: No joint swelling, erythema, or tenderness. ASSESSMENT: A 59-year-old female admitted with abdominal pain. CURRENT PROBLEMS: Include: * Septic shock. * Intestinal perforation, status post exploratory laparotomy and bowel resection. * Abdominal abscess. * Peritonitis. * Morbid obesity. * History of colitis. PLAN: * Continue cefepime. * Continue fluconazole. * Continue vancomycin. * Continue critical care support. * Continue continue ventilatory support. * Continue TPN. * Continue DVT prophylaxis. * Monitor electrolytes. * The patient will be followed up closely. TID: [id number] RECEIPT: [id number]
[2024-07-28] VITALS (99 sets, daily range): BP systolic 84–147; BP diastolic 45–96; PULSE 70–100; RESP 6–23; TEMP 97.8–99.3; O2SAT 93–100
[2024-07-28 05:37] LABS: HEMATOCRIT 27.8 % (36-48); MEAN CORPUSCULAR HEMOGLOBIN 27.1 pg (27.0-33.0); MEAN CORPUSCULAR HGB CONC 30.2 g/dL (32.0-36.0); MEAN CORPUSCULAR VOLUME 89.7 fL (79-99); RED BLOOD CELL COUNT(AUTO) 3.1 MIL/uL (4.00-5.50); RED CELL DISTRIBUTION WIDTH 18.6 % (11.0-15.5); WHITE BLOOD COUNT (AUTO) 16.3 K/uL (4.8-10.8)
[2024-07-28 06:08] LABS: ALBUMIN 1.5 g/dL (3.5-5.0); BILIRUBIN,TOTAL 0.5 mg/dL (0.2-1.0); POTASSIUM 3.6 mmol/L (3.5-5.1)
[2024-07-28] MEDS: LACTATED RINGERS 1000ML 500 ML IV ONE (06:14)
--- NOTE | 2024-07-28 07:59 | PN ---
[facility] PROGRESS NOTE Date Patient Seen: July 28, 2024 Time of Visit: 07:59 Supervising Physician: [Chi Kearney MD ] Primary Care Physician: [Dr. Villarreal of [facility] ] Outpatient Specialists: [GI: Dr. Solitario ] Inpatient Consults: [Dr. Quintero of surgery ] PROBLEM LIST: Septic shock requiring pressors Bacterial peritonitis POA Bowel perforation w/ [id number]-[id number] S/P exploratory laparotomy with drainage of intra-abdominal abscess/ventral hernia repair/small-bowel resection/NS of adhesions/left open and a wound VAC on 07/26/24 per High risk for ischemic bowel-POA Intractable abdominal pain-POA Acute hypokalemia-POA this is Dehydration-POA SHARMILA not POA Lactic acidosis-POA Hyperglycemia 2/2 uncontrolled diabetes mellitus Primary HTN HX of colitis HX of inflammatory bowel disease (Crohn's Disease) HX of cardiac arrest HX of BLE cellulitis Recent hospitalization for UTI with outpatient Zosyn antibiotic with Dr. Diaz INTERVAL HISTORY: This is Day 2. Postop exploratory laparotomy with drainage of intra-abdominal abscess/ventral hernia repair/small-bowel resection/NS of adhesions/left open and a wound VAC on 07/26/24 per . She remains full code. Per RN no major overnight event. Drips: Fentanyl and propofol and on Jose Armando-Synephrine at 0.8 mcg/kg per minute. Currently on mechanical ventilation on assist-control volume control tidal volume of 400 respiratory rate of 12 FiO2 of 100% and PEEP of 5. Lines: Right IJ Cordis, arterial line, OG tube, ET tubes, Troy catheter, and meet abdomen wound VAC. She remains NPO on TPN at 75 mL/hour. Urine output of 1.1 L today with a balance of -494 mL. Patient is sedated, there is has been at the bedside. He has been updated of current clinical findings and plan of care. He is in agreement to proceed with plans from General surgery today for possible colostomy placement. Antibiotics were escalated yesterday she meropenem and fluconazole. White count is trending down 16.3 today H&H stable 8.4/22.8 slightly decreasing platelet count of 89 place decreased from yesterday. Creatinine is 1.0 with a GFR 64 improving. Lactic acid was 2.7 was given lactated Ringer's 100 mL this morning. She is growing Klebsiella pneumoniae on abdominal fluid culture. Prognosis is guarded. She remains critical. REVIEW OF SYSTEMS: Unable to perform due to patient's intubated. PHYSICAL EXAM: GENERAL: Critically ill, intubated. HEENT: Sclera non icteric, moist mucosa pupils3 mm echo and sluggish NECK: Supple, no JVD, trachea midline right IJ Cordis LUNGS: Diminished breath sounds bilaterally. No wheezes HEART: Regular rate and rhythm. Normal S1 and S2, without murmurs ABD: Obese abdomen, wound VAC to mid abdomen incision. EXT: No clubbing cyanosis or edema. Troy in situ NEURO: Sedated and intubated. Vital Signs (last 8hr) Date Time Temp Pulse Resp B/P (MAP) Pulse Ox O2 Delivery O2 Flow Rate FiO2 07/28/24 06:59 73 40 07/28/24 06:00 78 16 127/76 (93) 98 40 07/28/24 05:45 73 16 114/68 (83) 99 107/67 (80) 07/28/24 05:30 78 12 123/72 (89) 99 07/28/24 05:15 76 12 113/75 (88) 98 07/28/24 05:00 77 18 114/74 (87) 99 40 07/28/24 04:45 78 18 113/74 (87) 99 110/71 (84) 07/28/24 04:30 80 20 112/75 (87) 99 07/28/24 04:15 81 20 108/73 (85) 98 07/28/24 04:00 98.1 92 12 115/84 (94) 98 40 07/28/24 03:45 90 14 133/87 (102) 100 138/93 (108) 07/28/24 03:33 40 07/28/24 03:33 100 Ventilator+ 40 07/28/24 03:30 77 12 107/62 (77) 100 07/28/24 03:15 78 12 107/62 (77) 100 07/28/24 03:12 84 40 07/28/24 03:00 79 12 113/65 (81) 100 40 07/28/24 02:45 75 14 104/60 (75) 100 103/64 (77) 07/28/24 02:30 74 12 103/59 (74) 100 07/28/24 02:15 78 12 112/66 (81) 100 07/28/24 02:00 74 12 103/59 (74) 100 40 07/28/24 01:45 75 12 104/60 (75) 100 100/64 (76) 07/28/24 01:30 73 12 101/59 (73) 100 07/28/24 01:15 73 12 100/57 (71) 100 07/28/24 01:00 74 12 103/59 (74) 100 40 07/28/24 00:45 75 12 106/61 (76) 100 108/69 (82) 07/28/24 00:30 76 12 103/60 (74) 100 07/28/24 00:24 84 40 07/28/24 00:15 75 12 108/63 (78) 100 07/28/24 00:00 98.2 75 12 101/59 (73) 100 40 LABS: Hematology Labs: Test 07/28/24 05:02 07/27/24 04:02 Range/Units White Blood Count 16.3 H 4.8-10.8 K/uL Red Blood Count 3.10 L 4.00-5.50 MIL/uL Hemoglobin 8.4 L 12.0-16.0 g/dL Hematocrit 27.8 L 36-48 % Mean Corpuscular Volume 89.7 79-99 fL Mean Corpuscular Hemoglobin 27.1 27.0-33.0 pg Mean Corpuscular Hemoglobin Concent 30.2 L 32.0-36.0 g/dL Red Cell Distribution Width 18.6 H 11.0-15.5 % Platelet Count 89 #L 130-400 K/uL Mean Platelet Volume 11.1 H 7.5-10.5 fL Nucleated Red Blood Cells 0.0 0.0-0.19 % Immature Granulocyte % (Auto) 2.5 H 0-1 % Neutrophils (%) (Auto) 91.2 H 40.0-77.0 % Lymphocytes (%) (Auto) 4.3 L 21.0-51.0 % Monocytes (%) (Auto) 1.4 L 3.0-13.0 % Eosinophils (%) (Auto) 0.0 0.0-8.0 % Basophils (%) (Auto) 0.6 0.0-5.0 % Neutrophils # (Auto) 25.7 H 1.8-7.7 K/uL Lymphocytes # (Auto) 1.2 1.0-4.8 K/uL Monocytes # (Auto) 0.4 0.1-1.0 K/uL Eosinophils # (Auto) 0.01 0.00-0.70 K/uL Basophils # (Auto) 0.17 0.00-0.20 K/uL Absolute Immature Granulocyte (auto 0.69 0-1 K/uL Chemistry Labs: Test 07/28/24 05:02 07/28/24 00:00 Range/Units Sodium Level 143 136-145 mmol/L Potassium Level 3.6 3.5-5.1 mmol/L Chloride Level 111 101-111 mmol/L Carbon Dioxide Level 21 21-32 mmol/L Blood Urea Nitrogen 29 H 7-18 mg/dL Creatinine 1.0 0.5-1.0 mg/dL Glomerular Filtration Rate Calc 64 >90 mL/min Random Glucose 216 H 70-105 mg/dL Lactic Acid Level 2.7 H 0.8-2.5 mmol/L Total Calcium 7.7 L 8.5-10.1 mg/dL Magnesium Level 2.00 1.80-2.40 mg/dL Total Bilirubin 0.5 0.2-1.0 mg/dL Aspartate Amino Transf (AST/SGOT) 15 10-37 U/L Alanine Aminotransferase (ALT/SGPT) 13 12-78 U/L Alkaline Phosphatase 186 H 50-136 U/L Total Protein 4.0 L 6.0-8.3 g/dL Albumin 1.5 L 3.5-5.0 g/dL Whole Blood Glucose 293 H 70-110 MG/DL DIAGNOSTICS / RADIOLOGY RESULTS: IMAGING REPORT Signed PATIENT: AMADA ROBLEDO MR#: [id number] : 1965 SEX: F AGE: 59 LOCATION: 2BH ORDER STATUS: ADM IN REPORT#: [id number] SERVICE [id number] REASON: post op ORDERING PHYSICIAN: CHI KEARNEY MD PROCEDURE: CXR1VW - CHEST 1VW Exam Type: CHEST 1VW Clinical Information: post op Comparison: None Findings: Pulmonary pattern is as before. No worrisome interval changes have taken place. Impression: Stable exam. DICTATED BY: ELIA MURRAY MD DATE: 07/28/241840 ELECTRONICALLY SIGNED BY: ELIA MURRAY MD DATE: 07/28/241844 [ ] PLAN NEURO: Minimize central acting medications as possible. Fall Precautions. Well lighted room through the day and minimize interruptions through the night to prevent acute delirium. -patient will be going back to the OR in 24-48 hours. -Maintain sedated and intubated for now surgeon with plans to take patient back in 24-48 hours to OR PULMONARY: Titrate Fio2 to keep Spo2 > or = 90% DuoNebs and CPT as needed IS hourly while awake for pulmonary hygiene once extubated Out of bed to chair as tolerated once extubated Mechanical ventilation: AC/VC tidal volume 400 respiratory rate of 12 FiO2 of 50% and PEEP of 5. Plateau pressure goal of less than 30 ABG in the morning Manage ventilator per ABG CARDIOVASCULAR: Follow hemodynamics. # septic shock -Titrate vasopressor to keep MAP >65 or systolic blood pressure >95mmHg -maintain map above 65, on Jose Armando-Synephrine due to tachycardia DRIPS: Jose Armando-Synephrine TPN 75 mL/hour Fentanyl Propofol LINES: Right IJ CVC GI & NUTRITION: Continue nutritional support Aspirations precautions TPN for nutrition for now Follow General surgery recs KIDNEYS & ELECTROLYTES: Strict monitoring of intake and output Daily weights Avoid nephrotoxic agents Monitor electrolytes and replace as needed Goal urine output of 30mL/hr or 0.5mL/kg/hr ENDOCRINE: Maintain blood glucose between 100-180 at all times. Insulin sliding scale for blood glucose management Hemoglobin A1c 8.1 -Lantus5 units q.h.s. -ISS q.6 hours Avoid hypoglycemia INFECTIOUS DISEASE: Trend temperature. Lawson-culture if febrile. Micro: [ ] 07/26/24 Intra-abdominal fluid culture growing Gram-negative rods 07/25/24 blood cultures with no growth Antibiotics: Meropenem Fluconazole HEMATOLOGY & COAGULATION: Monitor H&H. Keep Hgb > 7 Transfuse 1 unit of PRBC for Hgb < 7 Transfuse 1 pack of platelets of platelets < 20, 000 Watch for any signs and symptoms of bleeding SKIN: Pressure ulcer prevention per facility protocol Rehab: PT/OT Prophylaxis: GI: famotidine DVT: scd Code Status: Full Resuscitation Disposition: [ icu] Other: Total patient care time exceeds 35 minutes excluding all procedures. Case was discussed and seen with my supervising physician. The above plan was formulated and agreed upon. ATTESTATION BY PHYSICIAN I have evaluated the patient chart, medical records, and spoke with appropriate staff. I reviewed the documentation, medical decision making, and treatment plan as noted by the mid-level provider above. I agree with the findings and plan of care. Chi Kearney MD, NELLY [facility] July 28, 2024 07:59
[2024-07-28] MEDS ORDERED: ALBUMIN (HUMAN) 25% 100 ML IV SCH (08:00)
[2024-07-28 08:19] LABS: ABG HCO3 21.2 mmol/L (21.0-28.0); ABG OXYGEN SATURATION 98.5 % (94.0-98.0); ABG PCO2 34 mmHg (32-45); ABG PH 7.408 (7.350-7.450); CARBON MONOXIDE 0.3 % (0.5-1.5); HHb 1.5; PO2, ARTERIAL BG 153.7 mmHg (83.0-108.0); VENT MODE, BG AC (ROOM AIR)
[2024-07-28 08:23] LABS: INR 1.07 (0.85-1.15); PROTHROMBIN TIME 11.3 SEC (9.6-11.6)
[2024-07-28 08:24] LABS: PARTIAL THROMBOPLASTIN TIME 48.1 SEC (26.3-35.5)
--- NOTE | 2024-07-28 10:21 | PN ---
[facility] PROGRESS NOTE Date of Service: July 28, 2024 Time of Service: 10:17 SUBJECTIVE: 59-year-old female the past medical history of hypertension who presented to the hospital secondary to abdominal pain. Patient stated for the past 3-4 days she has been having increasing abdominal pain with abdominal distention. She was feeling nauseated and had episodes of emesis at home. She denied any hematemesis, melena, hematochezia. Patient was previously hospitalized in [facility] around one month ago secondary to colitis. GI was consulted during admission and patient underwent colonoscopy with findings showing severe inflammation of the entire colon concerning for pancolitis. She was treated with IV steroids and and was to start patient on Remicade as outpatient. She denied any fever, chills, diarrhea. She was going to follow up with GI as outpatient on 07/26/24 but had worsening pain which caused her to come to the hospital for further evaluation. Labs in the ED were notable for white count of 10.3, hemoglobin was 12.8, platelet count was 363 K, sodium was 138, potassium was 2.8, creatinine is 1.0, blood glucose was 269, lactic acid on presentation was 8.[address] abdomen pelvis which showed free intraperitoneal air concerning for bowel perforation. There is a anterior ventral wall hernia with bowel content and air collection and fat stranding concerning for bowel perforation. Her colon was also noted to be inflamed. CT was performed without contrast. 07/26 BP 135/83, tachycardic 102, saturating 100% 2 L nasal cannula. CBC shows hemoglobin 11.0, hematocrit 35.9, WBC 18.8, platelet count of 203. Sodium 141, potassium 3.7, BUN of 29, creatinine slightly worse today at 1.2. ABG with pH 7.51, pCO2 of 28, PO2 62.6, bicarb of 22.5. Serology to include influenza, SARS and group A negative. Results of chest x-ray pending. Patient is scheduled to be taken to the OR today. 07/27 the patient remains admitted to the intensive care unit, intubated, on mechanical ventilation, status post exploratory laparotomy, postoperative day one, case discussed with the RN, patient on propofol, Jose Armando-Synephrine, wound VAC to the abdomen in place, noted to have right IJ line in place. Getting broad- spectrum IV antibiotics. Blood pressure 130/79, heart rate of 83, saturating 100% on mechanical ventilation, FiO2 40%. Leukocytosis is worse today at 28.1, drop in hemoglobin to 9.7, hematocrit 30.8, with a platelet count of 148. Potassium level 3.6, magnesium 1.6. Lactic acid from 8.2 down to 1.8 ABG with pH 7.4, pCO2 34, PO2 145, bicarb of 20. Chest x-ray shows bilateral lower lung infiltrates. Family at Bedside, updated 07/28 the patient has been seen and examined in the intensive care unit, she remains intubated, mechanical ventilation, on fentanyl, propofol and Jose Armando- Synephrine, getting broad-spectrum antibiotics, BP 112/84, afebrile, saturating 100% on mechanical ventilation, FiO2 40%. CBC with a hemoglobin 8.4, hematocrit 27.8, WBC of 16.3, platelet count of 89. Patient is status post exploratory laparotomy with drainage of intra-abdominal abscess/ventral hernia repair/small- bowel resection/NS of adhesions/left open and wound VAC on 07/23 05/28 by General surgery. Results of septic workup reviewed, Gram-negative rods. Patient with a possible ischemic colitis, plan to take the patient back to the operating room for further exploration. REVIEW OF SYSTEMS CONSTITUTIONAL: Denies fevers, chills, or night sweats. No unintentional weight loss reported. NEUROLOGICAL: Denies headache, amaurosis fugax, motor weakness, sensory deficit, vertigo/spinning sensation, gait abnormalities, or tremors. ENT: No hearing loss, otalgia, otorrhea, rhinitis, rhinorrhea, hoarseness, or sore throat. CARDIOVASCULAR: Denies any exertional angina, dyspnea on exertion, orthopnea, paroxysmal nocturnal dyspnea, palpitations, life-threatening arrhythmias, claudication. PULMONARY: Denies any shortness of breath, cough, phlegm/sputum, hemoptysis, pleuritic chest pain. SLEEP: Denies morning headaches, daytime somnolence or napping. Denies difficulty falling asleep, staying asleep, waking from sleep. Denies knowledge of snoring. GASTROINTESTINAL: Positive for abdominal pain, abdominal distention, nausea, vomiting. Denied any melena, hematochezia, hematemesis, diarrhea GENITOURINARY: Denies frequency, urgency, nocturia, hematuria or incontinence (Storage/Irritative symptoms.) Low urinary stream, straining to void, urinary intermittency or hesitancy, splitting of the voiding stream, terminal dribbling. ENDOCRINOLOGIC: Denies polyuria, polydipsia, polyphagia or heat/cold intolerances. HEMATOLOGIC: Denies thrombophilia/previous clots, or coagulopathy/bleeding disorders. ONCOLOGIC: Denies personal history of malignancy. DERMATOLOGIC: Denies rashes or pruritus. PSYCHIATRIC: Denies any suicidal or homicidal ideation. Denies hallucinations. PHYSICAL EXAM GENERAL APPEARANCE: Patient intubated, on mechanical ventilation. NEUROLOGICAL: Cranial nerves II-XII grossly intact. Motor is 5/5 in bilateral upper and lower extremities proximal to distal. No sensory deficits. HEENT: Face is symmetric. Pupils are equal and reactive. Extraocular movements are intact. NECK: Supple. No JVD. No thyromegaly. No submental, submandibular, pre- /postauricular, occipital or supraclavicular lymphadenopathy. CHEST: Normal chest expansion. No Telemetry. LUNGS: Absence of any rales, rhonchi or any wheezing. CARDIOVASCULAR: Regular. S1 and S2 normal. No appreciable rubs, murmurs or gallops. ABDOMEN: Abdominal wound VAC in place : Deferred. No Troy. EXTREMITIES: Non-edematous and not cyanotic. No clubbing. Good capillary refill. SKIN: No skin breakdown. Vital Signs (last 8hr) Date Time Temp Pulse Resp B/P (MAP) Pulse Ox O2 Delivery O2 Flow Rate FiO2 07/28/24 09:55 87 30 07/28/24 08:24 30 07/28/24 08:14 40 07/28/24 08:00 98.8 75 17 112/84 (93) 97 07/28/24 08:00 100 Ventilator+ 40 07/28/24 08:00 98.8 07/28/24 07:45 78 14 118/70 (86) 98 07/28/24 07:30 75 14 115/68 (84) 98 07/28/24 07:15 74 12 120/69 (86) 97 07/28/24 07:00 74 12 110/66 (81) 96 07/28/24 06:59 73 40 07/28/24 06:45 77 11 115/69 (84) 96 113/83 (93) 07/28/24 06:00 78 16 127/76 (93) 98 40 07/28/24 05:45 73 16 114/68 (83) 99 107/67 (80) 07/28/24 05:30 78 12 123/72 (89) 99 07/28/24 05:15 76 12 113/75 (88) 98 07/28/24 05:00 77 18 114/74 (87) 99 40 07/28/24 04:45 78 18 113/74 (87) 99 110/71 (84) 07/28/24 04:30 80 20 112/75 (87) 99 07/28/24 04:15 81 20 108/73 (85) 98 07/28/24 04:00 98.1 92 12 115/84 (94) 98 40 07/28/24 03:45 90 14 133/87 (102) 100 138/93 (108) 07/28/24 03:33 40 07/28/24 03:33 100 Ventilator+ 40 07/28/24 03:30 77 12 107/62 (77) 100 07/28/24 03:15 78 12 107/62 (77) 100 07/28/24 03:12 84 40 07/28/24 03:00 79 12 113/65 (81) 100 40 07/28/24 02:45 75 14 104/60 (75) 100 103/64 (77) 07/28/24 02:30 74 12 103/59 (74) 100 LABS: Laboratory: Test 07/28/24 08:17 07/28/24 07:56 07/28/24 05:02 07/28/24 00:00 Range/Units Blood Gas Specimen Type Arterial Arterial Blood pH 7.408 7.350-7.450 Arterial Blood Partial Pressure CO2 34 32-45 mmHg Arterial Blood Partial Pressure O2 153.7 H 83.0-108.0 mmHg Arterial Blood HCO3 21.2 21.0-28.0 mmol/L Arterial Blood Oxygen Saturation 98.5 H 94.0-98.0 % Arterial Blood Base Excess -3.0 L -2.0-3.0 mmol/L Hemoglobin (Blood Gas) 9.5 L 12.0-16.0 g/dL Sodium (Blood Gas) 137 136-145 MMOL/L Bedside Potassium (Blood Gas) 3.8 3.4-4.5 MMOL/L Bedside Chloride (Blood Gas) 110 H 98-107 MMOL/L Bedside Glucose (Blood Gas) 202 H 65-95 MG/DL Bedside Ionized Calcium (Blood Gas) 1.16 1.15-1.33 MMOL/L Bedside Lactic Acid (Blood Gas) 2.01 H 0.36-0.75 MMOL/L Blood Gas Temperature 37.0 35.5-37.0 CELSIUS Blood Gas Respiration Rate 12.0 min. Blood Gas Vent Mode AC ROOM AIR FiO2 40.0 % Blood Gas Tidal Volume 400 ml Blood Gas PEEP 5 cm H2O Blood Gas Specimen Comment RR SAVANNAH, RN Prothrombin Time 11.3 9.6-11.6 SEC Prothromb Time International Ratio 1.07 0.85-1.15 Activated Partial Thromboplast Time 48.1 H 26.3-35.5 SEC Lactic Acid Level 1.9 0.8-2.5 mmol/L White Blood Count 16.3 H 4.8-10.8 K/uL Red Blood Count 3.10 L 4.00-5.50 MIL/uL Hemoglobin 8.4 L 12.0-16.0 g/dL Hematocrit 27.8 L 36-48 % Mean Corpuscular Volume 89.7 79-99 fL Mean Corpuscular Hemoglobin 27.1 27.0-33.0 pg Mean Corpuscular Hemoglobin Concent 30.2 L 32.0-36.0 g/dL Red Cell Distribution Width 18.6 H 11.0-15.5 % Platelet Count 89 #L 130-400 K/uL Mean Platelet Volume 11.1 H 7.5-10.5 fL Nucleated Red Blood Cells 0.0 0.0-0.19 % Sodium Level 143 136-145 mmol/L Potassium Level 3.6 3.5-5.1 mmol/L Chloride Level 111 101-111 mmol/L Carbon Dioxide Level 21 21-32 mmol/L Blood Urea Nitrogen 29 H 7-18 mg/dL Creatinine 1.0 0.5-1.0 mg/dL Glomerular Filtration Rate Calc 64 >90 mL/min Random Glucose 216 H 70-105 mg/dL Total Calcium 7.7 L 8.5-10.1 mg/dL Magnesium Level 2.00 1.80-2.40 mg/dL Total Bilirubin 0.5 0.2-1.0 mg/dL Aspartate Amino Transf (AST/SGOT) 15 10-37 U/L Alanine Aminotransferase (ALT/SGPT) 13 12-78 U/L Alkaline Phosphatase 186 H 50-136 U/L Total Protein 4.0 L 6.0-8.3 g/dL Albumin 1.5 L 3.5-5.0 g/dL Whole Blood Glucose 293 H 70-110 MG/DL Test 07/27/24 04:02 Range/Units Immature Granulocyte % (Auto) 2.5 H 0-1 % Neutrophils (%) (Auto) 91.2 H 40.0-77.0 % Lymphocytes (%) (Auto) 4.3 L 21.0-51.0 % Monocytes (%) (Auto) 1.4 L 3.0-13.0 % Eosinophils (%) (Auto) 0.0 0.0-8.0 % Basophils (%) (Auto) 0.6 0.0-5.0 % Neutrophils # (Auto) 25.7 H 1.8-7.7 K/uL Lymphocytes # (Auto) 1.2 1.0-4.8 K/uL Monocytes # (Auto) 0.4 0.1-1.0 K/uL Eosinophils # (Auto) 0.01 0.00-0.70 K/uL Basophils # (Auto) 0.17 0.00-0.20 K/uL Absolute Immature Granulocyte (auto 0.69 0-1 K/uL Current Medications Medications (Trade) Dose Ordered Sig/Alexandra Route PRN Reason Start Time Stop Time Status Last Admin Dose Admin Albumin Human 100 ml @ 50 mls/hr AD IV 07/28/24 08:00 07/31/24 07:59 Cefepime HCl (MAXipime 2 gm vial) 2 gm Q24H IVPB 07/26/24 22:00 07/27/24 14:55 DC 07/26/24 22:54 2 GM Dextrose (D50w) 50 ml AD PRN IV HYPOGLYCEMIA PROTOCOL 07/27/24 16:00 08/26/24 15:59 Famotidine (Pepcid 20mg Vial) 20 mg Q24H IV 07/25/24 21:00 08/24/24 20:59 07/27/24 20:42 20 MG Fat Emulsion Intravenous 250 ml @ 42 mls/hr QMOFR IV 07/29/24 09:00 08/28/24 08:59 Fentanyl Citrate 100 ml @ 0 mls/hr PROTOCOL IV 07/26/24 13:30 07/27/24 12:04 DC Fentanyl Citrate 100 ml @ 0 mls/hr PROTOCOL IV 07/27/24 12:30 08/03/24 12:29 07/28/24 03:43 5 MLS/HR Fentanyl/Sodium Chloride 250 ml @ 0.1 mls/hr PROTOCOL IV 07/27/24 12:00 07/27/24 12:05 DC Fluconazole/ Sodium Chloride 100 ml @ 100 mls/hr Q24H IV 07/26/24 13:30 08/25/24 13:29 07/27/24 13:42 100 MLS/HR Glucagon (Glucagon 1mg Kit) 1 mg AD PRN IM HYPOGLYCEMIA PROTOCOL 07/27/24 16:00 08/26/24 15:59 Insulin Glargine (LANtus 100 UNITS/ML 10 ML VIAL) 5 units HS SQ 07/27/24 21:00 08/26/24 20:59 07/27/24 20:43 5 UNITS Insulin Human Regular (humuLIN R 100 UNIT/ML 3ML) INSULIN SLIDING SCAL... Q6H6 SQ 07/26/24 00:00 08/25/24 00:00 07/28/24 06:13 3 UNIT Magnesium Sulfate 50 ml @ 0 mls/hr PROTOCOL PRN IV hypomagnesemia 07/25/24 18:00 08/24/24 17:59 07/27/24 07:57 25 MLS/HR Meropenem (Merrem 1gm) 1 gm Q12H IVPB 07/27/24 15:30 08/03/24 03:31 07/28/24 02:32 1 GM Midazolam HCl 50 ml @ 0 mls/hr PROTOCOL IV 07/26/24 13:30 08/02/24 13:29 Ondansetron HCl (zoFRAN 4MG INJ) 4 mg Q6H PRN IVP NAUSEA/VOMITING 07/25/24 18:00 08/24/24 17:59 Pharmacy Profile Note (Lace Assessment) 1 each AD MISC 07/27/24 15:30 07/27/24 15:14 DC Pharmacy Profile Note (Pharmacy Communication) 1 each ONCE MISC 07/27/24 15:00 07/28/24 07:29 DC Phenylephrine HCl 100 mg/Sodium Chloride 250 ml @ 0 mls/hr AD PRN IV TITRATE 07/26/24 13:30 08/25/24 13:29 07/27/24 16:56 12.4 MLS/HR Piperacillin Sod/ Tazobactam Sod (Zosyn 3.375gm+NS 50ml) 3.375 gm Q12H IV 07/25/24 20:00 07/25/24 17:27 DC Piperacillin Sod/ Tazobactam Sod (Zosyn 3.375gm+NS 50ml) 3.375 gm Q8H IVPB 07/25/24 19:00 07/26/24 21:40 DC 07/26/24 19:40 3.375 GM Piperacillin Sod/ Tazobactam Sod (Zosyn 3.375gm+NS 50ml) 3.375 gm Q8H IVPB 07/25/24 20:00 07/25/24 18:49 DC Potassium Chloride 100 ml @ 50 mls/hr AD PRN IV POTASSIUM PROTOCOL 07/25/24 18:00 08/24/24 17:59 07/28/24 06:14 50 MLS/HR Propofol 100 ml @ 0 mls/hr AD PRN IV TITRATE 07/26/24 13:30 08/25/24 13:29 07/28/24 01:32 12.2 MLS/HR Sodium Chloride 1,000 ml @ 125 mls/hr Q8H IV 07/25/24 17:30 07/27/24 16:01 DC 07/27/24 07:58 125 MLS/HR Sodium Chloride (NS 50ml) 50 ml AD IV 07/25/24 17:00 07/25/24 17:29 DC Vancomycin HCl 250 ml @ 125 mls/hr Q24H IV 07/26/24 17:00 07/27/24 15:09 DC 07/26/24 19:55 125 MLS/HR Vancomycin HCl (Vancomycin Protocol) 1 each AD IV 07/25/24 17:00 07/27/24 14:55 DC DIAGNOSTICS / RADIOLOGY: [ ] ASSESSMENT: Septic shock requiring pressors Bacterial peritonitis POA Bowel perforation w/ [id number] S/P exploratory laparotomy with drainage of intra-abdominal abscess/ventral hernia repair/small-bowel resection/NS of adhesions/left open and a wound VAC on 07/26/24 per High risk for ischemic bowel-POA Intractable abdominal pain-POA Acute hypokalemia-POA this is Dehydration-POA SHARMILA not POA Lactic acidosis-POA Hyperglycemia 2/2 uncontrolled diabetes mellitus Primary HTN HX of colitis HX of inflammatory bowel disease (Crohn's Disease) HX of cardiac arrest HX of BLE cellulitis Recent hospitalization for UTI with outpatient Zosyn antibiotic with Dr. Diaz PLAN: The patient remains admitted to the intensive care unit Remains intubated, on mechanical ventilation Continue the patient on fentanyl and propofol Continue the patient on Jose Armando-Synephrine, wean as tolerated Continue with the abdominal wound VAC in place Critical Care consulted, follow input and recommendation Continue to follow surgical input and recommendation. Patient high risk for ischemic bowel, scheduled to OR today by General surgery. Continue the patient on broad-spectrum IV antibiotics, follow ID input and recommendation. Prognosis is guarded NEURO: Minimize central acting medications as possible. Fall Precautions. Well lighted room through the day and minimize interruptions through the night to prevent acute delirium. PULMONARY: Supplemental 02 as needed BiPAP as necessary, for respiratory distress Titrate Fio2 to keep Spo2 > or = 90% DuoNebs and CPT as needed IS hourly while awake for pulmonary hygiene prn Out of bed to chair as tolerated Maintain aspiration precautions at all times CARDIOVASCULAR: Follow hemodynamics. Vital signs per facility protocol GI & NUTRITION: Continue nutritional support Aspirations precautions Prokinetic agents and laxatives as needed KIDNEYS & ELECTROLYTES: Strict monitoring of intake and output Daily weights Avoid nephrotoxic agents Monitor electrolytes and replace as needed Goal urine output of 30mL/hr or 0.5mL/kg/hr Medications to be dosed according to renal function. Avoid contrast if possible ENDOCRINE: Maintain blood glucose between 100-180 at all times. Insulin sliding scale for blood glucose management Hypoglycemia and hyperglycemia protocol in place INFECTIOUS DISEASE: Trend temperature, WBC and procalcitonin level Follow cultures, deescalate antibiotics as soon as possible. Panculture if new onset fever HEMATOLOGY & COAGULATION: Monitor H&H. Keep Hgb > 7 Transfuse 1 unit of PRBC for Hgb < 7 Transfuse 1 pack of platelets of platelets < 20, 000 Watch for any signs and symptoms of bleeding SKIN: Pressure ulcer prevention per facility protocol Specialty mattress as needed ORTHO/REHAB Continue PT/OT PRN: MEDICATIONS Tylenol 650 mg po every 4 hrs for fever zofran 4 mg IV every 6 hrs for n/v Hydralazine 5 mg IV every 4 hrs systolic pressure > 160 bowel regiment: lactulose 20 gm PO BID PRN constipation Supportive measures: Continue GI and DVT prophylaxis Disposition: Pending improvement in clinical condition All questions answered time spent: > 35 min MICKEY FINNEY MD July 28, 2024 10:21
--- NOTE | 2024-07-28 10:29 | HMCIMG ---
Exam Type: CHEST 1VW Clinical Information: INTUBATED Comparison: None Findings: Endotracheal tube is noted with tip approximately 5.1 cm from ld and no interval changes are seen otherwise. IMPRESSION: Endotracheal tube tip as noted.
[2024-07-28] MEDS ORDERED: FENTanyl CITRate PF 50 MCG/1 ML 2ML VIAL ONE ×3 (11:55→13:55)
[2024-07-28] MEDS ORDERED: proPOFol 10 MG/ML 20ML VIAL IV ONE (11:56)
[2024-07-28] MEDS ORDERED: rocuRONium bROMide 10MG/1ML 5ML VL ONE (12:00)
[2024-07-28] MEDS ORDERED: ceFAZolin SODIUM 1 GM VIAL ONE (12:01)
[2024-07-28] MEDS: ceFAZolin SODIUM 1 GM VIAL ONE (13:00)
[2024-07-28 13:32] LABS: ABG BASE EXCESS -7.5 mmol/L (-2.0-3.0); ABG HCO3 18.8 mmol/L (21.0-28.0); ABG OXYGEN SATURATION 98.6 % (94.0-98.0); ABG PCO2 41 mmHg (32-45); ABG PH 7.275 (7.350-7.450); CARBON MONOXIDE 0.3 % (0.5-1.5); DEVICE COMMENT ORVENT; HHb 1.4; PO2, ARTERIAL BG 169.7 mmHg (83.0-108.0); VENT MODE, BG OR VENT (ROOM AIR)
[2024-07-28] MEDS ORDERED: ROPivacaine 0.5% 5MG/ML 30ML ONE ×2 (13:55→13:58)
--- NOTE | 2024-07-28 13:55 | OP ---
DATE OF PROCEDURE: 07/26/2024 PREOPERATIVE DIAGNOSES: * Incarcerated ventral hernia. * Perforated bowel. POSTOPERATIVE DIAGNOSES: * Incarcerated ventral hernia. * Incarcerated left . * Intraabdominal abscess. * Ischemic omentum in the hernia. * Small bowel perforation. * Small bowel obstruction. PROCEDURES PERFORMED: * Exploratory laparotomy. * Lysis of adhesions. * Omentectomy. * Excision of hernia sac. * Small bowel resection. * Drainage of intraabdominal abscess. * Appendectomy. * Placement of ABThera wound VAC. SURGEON: Joao Alvarado M.D. ANESTHESIA: General. FINDINGS: * Incarcerated ventral hernia. * Ischemic omentum in the hernia. * Small bowel obstruction with ischemic and perforated small intestine. * Intraabdominal abscess. * Thick walled colon, question ischemic. SPECIMENS REMOVED: * Omentum. * Hernia sac. * Small bowel. * Appendix. * Pus, some sent for Gram stain culture and sensitivity. COMPLICATIONS: None. DESCRIPTION OF PROCEDURE: The patient was brought into the operating room. After proper identification, the patient was placed on the operating table in the supine position. General anesthesia was then administered and the patient was endotracheally intubated. Attention was then focused in the area of the abdomen. The skin was prepped and draped in the usual sterile fashion. An appropriate time-out was then carried out at this point. I proceeded to make a midline incision. The incision was carried through skin and subcutaneous tissue until the fascia was identified. The fascia was carefully opened and the incision was extended towards the area of the hernia. There was an incarcerated ventral hernia. I proceeded to carefully open the hernia sac. It contained ischemic omentum. So at this point, I proceeded to carry out an omentectomy by using the LigaSure to excise the omentum that was ischemic. Also, I proceeded to excise the hernia sac. In the abdomen, there was a pus in the pelvis and there was evidence of small bowel obstruction that has 3 areas of ischemia and also perforation. So at this point, I proceeded to lyse the adhesions in the abdomen and then the Bookwalter was used for retraction. The intraabdominal abscess was drained. Some of the pus was sent for Gram stain culture and sensitivity. I then proceeded to straighten the bowel. There were 3 areas of ischemia that was stuck just below the hernia and one of them was perforated. So at this point, I decided to do a small bowel resection. Windows were created in the mesentery of the bowel and using the tissue load of the Endo-JAMSHID, the small intestine was transected in these 2 areas. The mesentery was then scored and the mesentery vessels were taken using the LigaSure. I then proceeded to inspect the abdomen further. The large intestine looked thick walled and tuyet-looking all through except for the area of the rectum. I left this alone. When I come back, we will take a look again and see she may need a total colectomy. The other intraabdominal organs, the stomach, the rest of the small bowel, the liver, everything looks fine. At this point, I proceeded to carry out an appendectomy. The appendix was taken from the base of the cecum using the tissue load of the Endo-JAMSHID. I then I proceeded to irrigate the abdomen copiously with antibiotic irrigation. Hemostasis was noted to be adequate. I then proceeded to place an ABThera wound VAC at this point, to come back in 24-48 hours for re-exploration. This concluded the procedure. The patient was then taken to ICU intubated in guided condition. TID: [id number] RECEIPT: [id number]
[2024-07-28] MEDS ORDERED: LIDOCAINE 2%-EPI 1:200,000 20 ML VIAL IJ ONE (13:58)
[2024-07-28] MEDS ORDERED: dexaMETHasone SOD PHOSPHATE 10MG/ML 1ML VIAL ONE (13:58)
--- NOTE | 2024-07-28 15:06 | OP ---
DATE OF PROCEDURE: 07/28/2024 PREOPERATIVE DIAGNOSES: * Perforated bowel. * Incarcerated ventral hernia. * Ulcerative colitis. POSTOPERATIVE DIAGNOSES: * Perforated bowel. * Incarcerated ventral hernia. * Left lateral hernia. * Ulcerative colitis. * Acute cholecystitis. PROCEDURES PERFORMED: * Removal of previously placed ABThera wound VAC. * Open cholecystectomy. * Placement of Seprafilm adhesion barrier. * Primary repair left flank hernia. * Primary repair ventral hernia. SURGEON: Joao Alvarado M.D. ANESTHESIA: General. ESTIMATED BLOOD LOSS: Minimal. FINDINGS: * Viable bowel including colon. * Intact anastomosis. * Enlarged dense gallbladder. * Edematous gallbladder wall. SPECIMEN REMOVED: Gallbladder. DRAIN: #2, 7 mm JPs. COMPLICATIONS: None. DESCRIPTION OF PROCEDURE: The patient was brought into the operating room. After proper identification, the patient was placed on the operating table in the supine position. The patient was already endotracheally intubated. Attention was then focused in the area of the abdomen. The same was prepped and draped in the usual sterile fashion. An appropriate timeout was then carried out. I then proceeded to remove the previously placed ABThera wound VAC. I then proceeded to inspect the abdomen. The Bookwalter was used for retraction. I ran the bowel from ligament of Treitz all the way to the terminal ileum and the small intestine including the anastomosis looked viable. The large intestine also looked more viable and pink today. I then proceeded to inspect the right upper quadrant. The gallbladder was noted to be enlarged with edematous wall. So, I proceeded to carry out an open cholecystectomy. A Roseanna clamp was used to grab the fundus of the gallbladder. I then proceeded to take the gallbladder down from the gallbladder fossa using the Bovie cautery all the way to the triangle of Calot. The peritoneum covering this was then carefully opened. The cystic duct and the cystic artery was then skeletonized for a distance of about 2 cm. I then proceeded to place clips and the gallbladder was then removed in between clips. The gallbladder was then delivered. I then copiously irrigated the abdomen. Hemostasis was noted to be adequate. I proceeded to place two 7-mm Jesse-Guerra drain in the abdomen through 2 separate stab wounds on the anterior abdominal wall. I then proceeded to repair the left flank hernia by using a couple of 0 Vicryl stitches to close the defect. I proceeded to place Seprafilm addition barrier to help slow down the formation of adhesions. I then proceeded to close the abdomen. I proceeded to repair the ventral hernia primarily. Loop PDS was then used to close the fascia and then the skin was approximated together using skin marlon. Sterile dressings were then applied. Instrument and sponge count was found correct x 2. The patient was then taken to ICU and intubated in stable condition. The patient tolerated the procedure well. TID: [id number] RECEIPT: [id number]
[2024-07-28] MEDS: furoSEMIDE 20MG VIAL IV SCH (15:26)
[2024-07-28 16:37] LABS: ABG BASE EXCESS -1.2 mmol/L (-2.0-3.0); ABG HCO3 22.6 mmol/L (21.0-28.0); ABG OXYGEN SATURATION 95.6 % (94.0-98.0); ABG PCO2 35 mmHg (32-45); ABG PH 7.432 (7.350-7.450); CARBON MONOXIDE 0.3 % (0.5-1.5); HHb 4.4; PO2, ARTERIAL BG 82.2 mmHg (83.0-108.0); VENT MODE, BG AC (ROOM AIR)
--- NOTE | 2024-07-28 18:45 | HMCIMG ---
Exam Type: CHEST 1VW Clinical Information: post op Comparison: None Findings: Pulmonary pattern is as before. No worrisome interval changes have taken place. Impression: Stable exam.
[2024-07-28] MEDS: M.V.I. IV [ADULT] 10 ML in CLINIMIX-E 5%AA /D15%W 2000ML 2,000 ML IV ONE (19:03)
[2024-07-29] VITALS (100 sets, daily range): BP systolic 81–183; BP diastolic 47–97; PULSE 64–117; RESP 6–24; TEMP 97.8–98.6; O2SAT 94–100
[2024-07-29 05:21] LABS: BASOPHILS # (AUTO) 0.06 K/uL (0.00-0.20); BASOPHILS % (AUTO) 0.4 % (0.0-5.0); HEMATOCRIT 28.5 % (36-48); IMMATURE GRANULOCYTE ABSOLUTE 0.41 K/uL (0-1); LYMPHOCYTES # (AUTO) 1.5 K/uL (1.0-4.8); LYMPHOCYTES % (AUTO) 8.6 % (21.0-51.0); MEAN CORPUSCULAR HEMOGLOBIN 27.1 pg (27.0-33.0); MEAN CORPUSCULAR HGB CONC 30.2 g/dL (32.0-36.0); MEAN CORPUSCULAR VOLUME 89.9 fL (79-99); MONOCYTES # (AUTO) 0.5 K/uL (0.1-1.0); MONOCYTES % (AUTO) 3.2 % (3.0-13.0); NEUTROPHILS # (AUTO) 14.3 K/uL (1.8-7.7); NEUTROPHILS % (AUTO) 85.4 % (40.0-77.0); PLATELET COUNT (AUTO) 76 K/uL (130-400); RED BLOOD CELL COUNT(AUTO) 3.17 MIL/uL (4.00-5.50); RED CELL DISTRIBUTION WIDTH 18.3 % (11.0-15.5); WHITE BLOOD COUNT (AUTO) 16.8 K/uL (4.8-10.8)
[2024-07-29 05:52] LABS: ALBUMIN 1.3 g/dL (3.5-5.0); BILIRUBIN,TOTAL 0.4 mg/dL (0.2-1.0); CREATININE 0.7 mg/dL (0.5-1.0); MAGNESIUM 1.7 mg/dL (1.80-2.40); PHOSPHORUS 2.7 mg/dL (2.5-4.9); POTASSIUM 3.7 mmol/L (3.5-5.1); TOTAL PROTEIN, SERUM 4.1 g/dL (6.0-8.3)
[2024-07-29] MEDS: FAT EMULSIONS 20% 250ML 250 ML IV SCH (08:23)
--- NOTE | 2024-07-29 09:26 | HMCIMG ---
Exam Type: CHEST 1VW Clinical Information: INTUBATED Comparison: None Findings: Pulmonary pattern is as before. No worrisome interval changes have taken place. Impression: Stable exam.
--- NOTE | 2024-07-29 09:42 | PN ---
[facility] PROGRESS NOTE Date Patient Seen: July 29, 2024 Time of Visit: 09:40 Supervising Physician: [ Quique Rivera MD] Primary Care Physician: [Dr. Villarreal of [facility] ] Outpatient Specialists: [GI: Dr. Solitario ] Inpatient Consults: [Dr. Quintero of surgery ] PROBLEM LIST: Septic shock from below requiring pressors,resolving Bacterial peritonitis POA + Enterococcus Raffinosus and Klebsiella pneumoniae Bowel perforation w/ Pneumoperitoneum-POA S/P exploratory laparotomy with drainage of intra-abdominal abscess/ventral hernia repair/small-bowel resection/lysis of adhesions/left open and a wound VAC on 07/26/24 per Removal of previously placed ABThera wound VAC & Placement of Seprafilm adhesion barrier 07/28/24 per Incarcerated ventral hernia POA Primary repair ventral hernia 07/28/24 Left Lateral Hernia POA Primary repair left flank hernia 07/28/24 Acute cholecystitis, POAopen cholecystectomy on 07/28/24 High risk for ischemic bowel-POA Acute hypokalemia-POA Dehydration-POA SHARMILA not POA Lactic acidosis-POA Hyperglycemia 2/2 uncontrolled diabetes mellitus Primary HTN HX of colitis HX of inflammatory bowel disease (Crohn's Disease) HX of cardiac arrest HX of BLE cellulitis Recent hospitalization for UTI with outpatient Zosyn antibiotic with Dr. Diaz INTERVAL HISTORY: This is Day 1 open cholecystectomy with removal of previously placed ABTHera wound VAC, placement of ceftriaxone home adhesion barrier, primary repair of left flank hernia and repair of ventral hernia per . no further plans of taking pt back to OR per report. Per RN no major overnight event. Patient is on sedation vacation this morning still 117 to wake up grimaces to movement. Will attempt CPAP this morning. Weaning Jose Armando-Synephrine currently yesterday 0.1 mcg/kg per minute. Lines: Right IJ Cordis, arterial line, OG tube, ET tubes, Troy catheter, DP is. Left BYRON drain 320 mL with red BYRON draining 120 mL. She remains NPO on TPN at 75 mL/hour. Urine output of 3.6 L,-1.9 L balance Patient's problems has been updated of plan of care and verbalizes understanding. He continues IV antibiotics. Intra-abdominal fluid culture growing positive for Klebsiella pneumoniae and Enterococcus Raffinosus. White count is 9.8 similar to yesterday, H&H stable 8.61/28.5 platelet count trending down 76 K today. Creatinine of 0.7 with GFR of 99 kidneys are improved. Magnesium of 1.7 covered per protocol. Blood sugar of 311 mg/dL insulin adjusted. X-ray stable. ET tube 4.4 cm with the ld. No pneumothorax. REVIEW OF SYSTEMS: Unable to perform due to patient's intubated. PHYSICAL EXAM: GENERAL: Critically ill, intubated. HEENT: Sclera non icteric, moist mucosa pupils3 mm echo and sluggish NECK: Supple, no JVD, trachea midline right IJ Cordis LUNGS: Diminished breath sounds bilaterally. No wheezes HEART: Regular rate and rhythm. Normal S1 and S2, without murmurs ABD: Obese abdomen, mid abdomen dressing clean dry and intact. Bilateral BYRON present. Draining serosanguineous EXT: No clubbing cyanosis or edema. Troy in situ NEURO: Sedated and intubated. Vital Signs (last 8hr) Date Time Temp Pulse Resp B/P (MAP) Pulse Ox O2 Delivery O2 Flow Rate FiO2 07/29/24 09:21 107 30 07/29/24 09:15 104 10 124/69 (87) 100 07/29/24 09:00 97 11 121/66 (84) 100 121/73 (89) 07/29/24 08:45 90 11 99/53 (68) 100 07/29/24 08:30 83 12 112/60 (77) 99 07/29/24 08:15 84 16 113/61 (78) 99 07/29/24 08:00 98.1 82 18 113/62 (79) 99 113/66 (82) 07/29/24 08:00 98.1 07/29/24 07:45 84 22 116/63 (80) 98 07/29/24 07:40 97 Ventilator+ 30 07/29/24 07:37 30 07/29/24 07:30 83 17 116/64 (81) 97 07/29/24 07:15 80 16 116/64 (81) 97 30 07/29/24 07:00 84 16 140/76 (97) 99 30 131/83 (99) 07/29/24 06:59 80 16 116/64 (81) 97 30 07/29/24 06:55 81 30 07/29/24 06:44 84 16 140/76 (97) 99 30 131/83 (99) 07/29/24 06:29 80 16 120/67 (84) 99 30 07/29/24 06:14 77 16 111/61 (78) 99 30 07/29/24 05:59 77 14 111/61 (78) 99 30 07/29/24 05:44 75 14 111/62 (78) 99 30 110/63 (79) 07/29/24 05:30 78 14 115/63 (80) 98 30 07/29/24 05:00 79 14 121/67 (85) 99 30 07/29/24 04:44 77 19 115/64 (81) 99 30 109/65 (80) 07/29/24 04:30 82 19 119/66 (83) 97 30 07/29/24 04:00 30 07/29/24 04:00 98.4 07/29/24 04:00 77 19 107/59 (75) 96 30 07/29/24 03:55 74 30 07/29/24 03:44 75 16 101/56 (71) 98 30 104/66 (79) 07/29/24 03:30 80 16 112/63 (79) 97 30 07/29/24 03:00 96 Ventilator+ 30 07/29/24 03:00 78 16 109/61 (77) 97 30 07/29/24 02:43 81 14 107/60 (76) 97 30 106/65 (79) 07/29/24 02:30 76 14 101/57 (72) 98 30 07/29/24 02:00 76 12 98/56 (70) 99 30 07/29/24 01:44 75 12 99/56 (70) 97 30 98/62 (74) LABS: Hematology Labs: Test 07/29/24 05:10 Range/Units White Blood Count 16.8 H 4.8-10.8 K/uL Red Blood Count 3.17 L 4.00-5.50 MIL/uL Hemoglobin 8.6 L 12.0-16.0 g/dL Hematocrit 28.5 L 36-48 % Mean Corpuscular Volume 89.9 79-99 fL Mean Corpuscular Hemoglobin 27.1 27.0-33.0 pg Mean Corpuscular Hemoglobin Concent 30.2 L 32.0-36.0 g/dL Red Cell Distribution Width 18.3 H 11.0-15.5 % Platelet Count 76 L 130-400 K/uL Mean Platelet Volume 11.7 H 7.5-10.5 fL Immature Granulocyte % (Auto) 2.4 H 0-1 % Neutrophils (%) (Auto) 85.4 H 40.0-77.0 % Lymphocytes (%) (Auto) 8.6 L 21.0-51.0 % Monocytes (%) (Auto) 3.2 3.0-13.0 % Eosinophils (%) (Auto) 0.0 0.0-8.0 % Basophils (%) (Auto) 0.4 0.0-5.0 % Neutrophils # (Auto) 14.3 H 1.8-7.7 K/uL Lymphocytes # (Auto) 1.5 1.0-4.8 K/uL Monocytes # (Auto) 0.5 0.1-1.0 K/uL Eosinophils # (Auto) 0.00 0.00-0.70 K/uL Basophils # (Auto) 0.06 0.00-0.20 K/uL Absolute Immature Granulocyte (auto 0.41 0-1 K/uL Nucleated Red Blood Cells 0.0 0.0-0.19 % Chemistry Labs: Test 07/29/24 05:10 07/29/24 00:04 Range/Units Sodium Level 144 136-145 mmol/L Potassium Level 3.7 3.5-5.1 mmol/L Chloride Level 110 101-111 mmol/L Carbon Dioxide Level 26 21-32 mmol/L Blood Urea Nitrogen 24 H 7-18 mg/dL Creatinine 0.7 0.5-1.0 mg/dL Glomerular Filtration Rate Calc 99 >90 mL/min Random Glucose 311 H 70-105 mg/dL Lactic Acid Level 1.6 0.8-2.5 mmol/L Total Calcium 7.6 L 8.5-10.1 mg/dL Phosphorus Level 2.7 2.5-4.9 mg/dL Magnesium Level 1.70 L 1.80-2.40 mg/dL Total Bilirubin 0.4 0.2-1.0 mg/dL Aspartate Amino Transf (AST/SGOT) 15 10-37 U/L Alanine Aminotransferase (ALT/SGPT) 16 12-78 U/L Alkaline Phosphatase 205 H 50-136 U/L Total Protein 4.1 L 6.0-8.3 g/dL Albumin 1.3 L 3.5-5.0 g/dL Triglycerides Level 208 H 30-200 mg/dL Cholesterol Level 94 <200 mg/dL LDL Cholesterol 47 0-99 mg/dL HDL Cholesterol 19 L 35-85 mg/dL Whole Blood Glucose 325 H 70-110 MG/DL Coagulation Labs: Test 07/28/24 07:56 Range/Units Prothrombin Time 11.3 9.6-11.6 SEC Prothromb Time International Ratio 1.07 0.85-1.15 Activated Partial Thromboplast Time 48.1 H 26.3-35.5 SEC DIAGNOSTICS / RADIOLOGY RESULTS: [IMAGING REPORT Signed PATIENT: AMADA ROBLEDO MR#: [id number] : 1965 SEX: F AGE: 59 LOCATION: [facility] ORDER 2300 STATUS: ADM IN REPORT#: [id number] SERVICE 0600 REASON: INTUBATED ORDERING PHYSICIAN: NIKA HAIRSTON PROCEDURE: CXR1VW - CHEST 1VW Exam Type: CHEST 1VW Clinical Information: INTUBATED Comparison: None Findings: Pulmonary pattern is as before. No worrisome interval changes have taken place. Impression: Stable exam. DICTATED BY: ELIA MURRAY MD DATE: 07/29/24922 ELECTRONICALLY SIGNED BY: ELIA MURRAY MD DATE: 07/29/24925 ] PLAN NEURO: Minimize central acting medications as possible. Fall Precautions. Well lighted room through the day and minimize interruptions through the night to prevent acute delirium. Decrease sedation vacation. PULMONARY: Titrate Fio2 to keep Spo2 > or = 90% DuoNebs and CPT as needed IS hourly while awake for pulmonary hygiene once extubated Out of bed to chair as tolerated once extubated Daily spontaneous breathing trials Mechanical ventilation: AC/VC tidal volume 400 respiratory rate of 12 FiO2 of 50% and PEEP of 5. Plateau pressure goal of less than 30 ABG in the morning Manage ventilator per ABG CARDIOVASCULAR: Follow hemodynamics. # septic shock -Titrate vasopressor to keep MAP >65 or systolic blood pressure >95mmHg -maintain map above 65, on Jose Armando-Synephrine due to tachycardia Wean Jose Armando-Synephrine as possible DRIPS: Jose Armando-Synephrine wean TPN 75 mL/hour Precedex p.r.n. agitation Seven fentanyl drip due Dilaudid 0.5 mg IV push p.r.n. q.4 hours for pain. -[id number]- -M-[id number]-l- LINES: Right IJ CVC Arterial line Troy catheter ET tube OG tube GI & NUTRITION: Continue nutritional support Aspirations precautions TPN for nutrition for now Follow General surgery recs KIDNEYS & ELECTROLYTES: Strict monitoring of intake and output Daily weights Avoid nephrotoxic agents Monitor electrolytes and replace as needed Goal urine output of 30mL/hr or 0.5mL/kg/hr ENDOCRINE: Maintain blood glucose between 100-180 at all times. Insulin sliding scale for blood glucose management Hemoglobin A1c 8.1 15 units of Lantus subQ b.i.d. -ISS q.6 hours Avoid hypoglycemia INFECTIOUS DISEASE: Trend temperature. Lawson-culture if febrile. Micro: [ ] 07/26/24 Intra-abdominal fluid culture growing Klebsiella pneumoniae and Enterococcus Raffinosus 07/25/24 blood cultures with no growth Antibiotics: Meropenem Fluconazole HEMATOLOGY & COAGULATION: Monitor H&H. Keep Hgb > 7 Transfuse 1 unit of PRBC for Hgb < 7 Transfuse 1 pack of platelets of platelets < 20, 000 Watch for any signs and symptoms of bleeding SKIN: Pressure ulcer prevention per facility protocol Rehab: PT/OT Prophylaxis: GI: famotidine DVT: scd Code Status: Full Resuscitation Disposition: [ icu] Other: Total patient care time exceeds 35 minutes excluding all procedures. Case was discussed and seen with my supervising physician. The above plan was formulated and agreed upon. ATTESTATION BY PHYSICIAN The patient has been seen and evaluated, the case has been discussed with the HOSPICE NURSE, I agree with the clinical findings and plan of care. Quique Rivera MD, NELLY J ARNP July 29, 2024 09:42
--- NOTE | 2024-07-29 09:58 | PN ---
INFECTIOUS DISEASE FOLLOWUP NOTE DATE OF SERVICE: 07/25/2024 SUBJECTIVE: The patient is seen and examined at bedside today. No fever, no chills. No nausea or vomiting. No sore throat or rhinorrhea. No bleeding tendency. The patient remains intubated and sedated. Still on vasopressor. The patient is ready to undergo further surgery to deal with abdominal wound and possible bowel resection. PHYSICAL EXAMINATION: VITAL SIGNS: Temperature 98.9. EYES: No icterus. Pupils equal and reactive. HENT: Oral thrush seen. Moist oral mucosa. NECK: Supple. No JVD or thyromegaly. LUNGS: Good air entry. No rales. No rhonchi. CARDIOVASCULAR: S1 and S2, regular. No murmur heard. ABDOMEN: Morbidly obese. Abdominal wall wounds sealed with a wound vacuum. CENTRAL NERVOUS SYSTEM: The patient is sedated. Withdrawal to tactile stimuli. SKIN: No rashes. No itchiness. LYMPHATIC: No peripheral lymphadenopathy. BACK: No deformity. No pressure ulcer. HEMATOLOGIC: No bleeding or petechial lesions seen. MUSCULOSKELETAL: No joint swelling, erythema or tenderness. LABORATORY DATA: WBC 16.3, hemoglobin 8.4, platelets 89. ASSESSMENT: A 59-year-old female with multiple problems including: * Septic shock. * Intestinal perforation, status post exploratory laparotomy and bowel resection. * Peritonitis. * Intraabdominal abscess, status post open drainage. * Morbid obesity. * Colitis. * Respiratory failure, status post intubation. PLAN: * Continue cefepime. * Continue fluconazole. * Continue critical care support. * Continue ventilatory support. * Continue wound care. * Continue pain management. * Continue DVT prophylaxis. * Monitor electrolyte. TID: [id number] RECEIPT: [id number]
[2024-07-29] MEDS: INSULIN GLARgine 100 UNITS/ML 10 ML VIAL SQ ONE (10:47)
--- NOTE | 2024-07-29 13:24 | PN ---
[facility] PROGRESS NOTE Date of Service: July 29, 2024 Time of Service: 13:15 SUBJECTIVE: 59-year-old female the past medical history of hypertension who presented to the hospital secondary to abdominal pain. Patient stated for the past 3-4 days she has been having increasing abdominal pain with abdominal distention. She was feeling nauseated and had episodes of emesis at home. She denied any hematemesis, melena, hematochezia. Patient was previously hospitalized in [facility] around one month ago secondary to colitis. GI was consulted during admission and patient underwent colonoscopy with findings showing severe inflammation of the entire colon concerning for pancolitis. She was treated with IV steroids and and was to start patient on Remicade as outpatient. She denied any fever, chills, diarrhea. She was going to follow up with GI as outpatient on 07/26/24 but had worsening pain which caused her to come to the hospital for further evaluation. Labs in the ED were notable for white count of 10.3, hemoglobin was 12.8, platelet count was 363 K, sodium was 138, potassium was 2.8, creatinine is 1.0, blood glucose was 269, lactic acid on presentation was 8.[address] abdomen pelvis which showed free intraperitoneal air concerning for bowel perforation. There is a anterior ventral wall hernia with bowel content and air collection and fat stranding concerning for bowel perforation. Her colon was also noted to be inflamed. CT was performed without contrast. 07/26 BP 135/83, tachycardic 102, saturating 100% 2 L nasal cannula. CBC shows hemoglobin 11.0, hematocrit 35.9, WBC 18.8, platelet count of 203. Sodium 141, potassium 3.7, BUN of 29, creatinine slightly worse today at 1.2. ABG with pH 7.51, pCO2 of 28, PO2 62.6, bicarb of 22.5. Serology to include influenza, SARS and group A negative. Results of chest x-ray pending. Patient is scheduled to be taken to the OR today. 07/27 the patient remains admitted to the intensive care unit, intubated, on mechanical ventilation, status post exploratory laparotomy, postoperative day one, case discussed with the RN, patient on propofol, Jose Armando-Synephrine, wound VAC to the abdomen in place, noted to have right IJ line in place. Getting broad- spectrum IV antibiotics. Blood pressure 130/79, heart rate of 83, saturating 100% on mechanical ventilation, FiO2 40%. Leukocytosis is worse today at 28.1, drop in hemoglobin to 9.7, hematocrit 30.8, with a platelet count of 148. Potassium level 3.6, magnesium 1.6. Lactic acid from 8.2 down to 1.8 ABG with pH 7.4, pCO2 34, PO2 145, bicarb of 20. Chest x-ray shows bilateral lower lung infiltrates. Family at Bedside, updated 07/28 the patient has been seen and examined in the intensive care unit, she remains intubated, mechanical ventilation, on fentanyl, propofol and Jose Armando- Synephrine, getting broad-spectrum antibiotics, BP 112/84, afebrile, saturating 100% on mechanical ventilation, FiO2 40%. CBC with a hemoglobin 8.4, hematocrit 27.8, WBC of 16.3, platelet count of 89. Patient is status post exploratory laparotomy with drainage of intra-abdominal abscess/ventral hernia repair/small- bowel resection/NS of adhesions/left open and wound VAC on 07/23 05/28 by General surgery. Results of septic workup reviewed, Gram-negative rods. Patient with a possible ischemic colitis, plan to take the patient back to the operating room for further exploration. 07/29 Pt seen at bedside, no acute events overnight. She is s/p ex-lap with cholecystectomy. Currently on pressors, will wean as able. Remains intubated, PEEP 5, FiO2 30%, will continue with daily sedation vacations. She is mildly tachycardic. She is NPO, continue TPN per general surgery. WBC increased from 16.3 up to 16.8, Hgb improved from 8.4 up to 8.6, platelets decreased from 89 d own to 76 REVIEW OF SYSTEMS CONSTITUTIONAL: Denies fevers, chills, or night sweats. No unintentional weight loss reported. NEUROLOGICAL: Denies headache, amaurosis fugax, motor weakness, sensory deficit, vertigo/spinning sensation, gait abnormalities, or tremors. ENT: No hearing loss, otalgia, otorrhea, rhinitis, rhinorrhea, hoarseness, or sore throat. CARDIOVASCULAR: Denies any exertional angina, dyspnea on exertion, orthopnea, paroxysmal nocturnal dyspnea, palpitations, life-threatening arrhythmias, claudication. PULMONARY: Denies any shortness of breath, cough, phlegm/sputum, hemoptysis, pleuritic chest pain. SLEEP: Denies morning headaches, daytime somnolence or napping. Denies difficulty falling asleep, staying asleep, waking from sleep. Denies knowledge of snoring. GASTROINTESTINAL: Positive for abdominal pain, abdominal distention, nausea, vomiting. Denied any melena, hematochezia, hematemesis, diarrhea GENITOURINARY: Denies frequency, urgency, nocturia, hematuria or incontinence (Storage/Irritative symptoms.) Low urinary stream, straining to void, urinary intermittency or hesitancy, splitting of the voiding stream, terminal dribbling. ENDOCRINOLOGIC: Denies polyuria, polydipsia, polyphagia or heat/cold intolerances. HEMATOLOGIC: Denies thrombophilia/previous clots, or coagulopathy/bleeding disorders. ONCOLOGIC: Denies personal history of malignancy. DERMATOLOGIC: Denies rashes or pruritus. PSYCHIATRIC: Denies any suicidal or homicidal ideation. Denies hallucinations. PHYSICAL EXAM GENERAL APPEARANCE: Patient intubated, on mechanical ventilation. NEUROLOGICAL: Cranial nerves II-XII grossly intact. Motor is 5/5 in bilateral upper and lower extremities proximal to distal. No sensory deficits. HEENT: Face is symmetric. Pupils are equal and reactive. Extraocular movements are intact. NECK: Supple. No JVD. No thyromegaly. No submental, submandibular, pre- /postauricular, occipital or supraclavicular lymphadenopathy. CHEST: Normal chest expansion. No Telemetry. LUNGS: Absence of any rales, rhonchi or any wheezing. CARDIOVASCULAR: Regular. S1 and S2 normal. No appreciable rubs, murmurs or gallops. ABDOMEN: Abdominal wound VAC in place : Deferred. No [place]. EXTREMITIES: Non-edematous and not cyanotic. No clubbing. Good capillary refill. SKIN: No skin breakdown. Vital Signs (last 8hr) Date Time Temp Pulse Resp B/P (MAP) Pulse Ox O2 Delivery O2 Flow Rate FiO2 07/29/24 12:45 117 18 115/63 (80) 100 07/29/24 12:30 117 11 118/65 (82) 100 07/29/24 12:15 116 6 122/67 (85) 100 07/29/24 12:00 30 07/29/24 12:00 98.1 114 15 117/66 (83) 100 114/68 (83) 07/29/24 12:00 98.1 07/29/24 12:00 100 Ventilator+ 30 07/29/24 11:45 113 15 120/66 (84) 100 07/29/24 11:32 116 30 07/29/24 11:30 115 15 130/71 (90) 100 07/29/24 11:15 113 15 124/70 (88) 100 07/29/24 11:00 113 15 112/63 (79) 98 115/74 (88) 07/29/24 10:45 112 12 120/67 (84) 100 07/29/24 10:30 113 13 120/67 (84) 100 07/29/24 10:15 113 13 112/64 (80) 99 07/29/24 10:00 109 10 116/65 (82) 100 107/73 (84) 07/29/24 09:45 112 14 124/69 (87) 99 07/29/24 09:30 105 10 121/68 (85) 100 07/29/24 09:21 107 30 07/29/24 09:15 104 10 124/69 (87) 100 07/29/24 09:00 97 11 121/66 (84) 100 121/73 (89) 07/29/24 08:45 90 11 99/53 (68) 100 07/29/24 08:30 83 12 112/60 (77) 99 07/29/24 08:15 84 16 113/61 (78) 99 07/29/24 08:00 98.1 82 18 113/62 (79) 99 113/66 (82) 07/29/24 08:00 98.1 07/29/24 07:45 84 22 116/63 (80) 98 07/29/24 07:40 97 Ventilator+ 30 07/29/24 07:37 30 07/29/24 07:30 83 17 116/64 (81) 97 07/29/24 07:15 80 16 116/64 (81) 97 30 07/29/24 07:00 84 16 140/76 (97) 99 30 131/83 (99) 07/29/24 06:59 80 16 116/64 (81) 97 30 07/29/24 06:55 81 30 07/29/24 06:44 84 16 140/76 (97) 99 30 131/83 (99) 07/29/24 06:29 80 16 120/67 (84) 99 30 07/29/24 06:14 77 16 111/61 (78) 99 30 07/29/24 05:59 77 14 111/61 (78) 99 30 07/29/24 05:44 75 14 111/62 (78) 99 30 110/63 (79) 07/29/24 05:30 78 14 115/63 (80) 98 30 LABS: Laboratory: Test 07/29/24 10:59 07/29/24 05:10 07/28/24 16:35 07/28/24 07:56 Range/Units Whole Blood Glucose 228 H 70-110 MG/DL White Blood Count 16.8 H 4.8-10.8 K/uL Red Blood Count 3.17 L 4.00-5.50 MIL/uL Hemoglobin 8.6 L 12.0-16.0 g/dL Hematocrit 28.5 L 36-48 % Mean Corpuscular Volume 89.9 79-99 fL Mean Corpuscular Hemoglobin 27.1 27.0-33.0 pg Mean Corpuscular Hemoglobin Concent 30.2 L 32.0-36.0 g/dL Red Cell Distribution Width 18.3 H 11.0-15.5 % Platelet Count 76 L 130-400 K/uL Mean Platelet Volume 11.7 H 7.5-10.5 fL Immature Granulocyte % (Auto) 2.4 H 0-1 % Neutrophils (%) (Auto) 85.4 H 40.0-77.0 % Lymphocytes (%) (Auto) 8.6 L 21.0-51.0 % Monocytes (%) (Auto) 3.2 3.0-13.0 % Eosinophils (%) (Auto) 0.0 0.0-8.0 % Basophils (%) (Auto) 0.4 0.0-5.0 % Neutrophils # (Auto) 14.3 H 1.8-7.7 K/uL Lymphocytes # (Auto) 1.5 1.0-4.8 K/uL Monocytes # (Auto) 0.5 0.1-1.0 K/uL Eosinophils # (Auto) 0.00 0.00-0.70 K/uL Basophils # (Auto) 0.06 0.00-0.20 K/uL Absolute Immature Granulocyte (auto 0.41 0-1 K/uL Nucleated Red Blood Cells 0.0 0.0-0.19 % Sodium Level 144 136-145 mmol/L Potassium Level 3.7 3.5-5.1 mmol/L Chloride Level 110 101-111 mmol/L Carbon Dioxide Level 26 21-32 mmol/L Blood Urea Nitrogen 24 H 7-18 mg/dL Creatinine 0.7 0.5-1.0 mg/dL Glomerular Filtration Rate Calc 99 >90 mL/min Random Glucose 311 H 70-105 mg/dL Lactic Acid Level 1.6 0.8-2.5 mmol/L Total Calcium 7.6 L 8.5-10.1 mg/dL Phosphorus Level 2.7 2.5-4.9 mg/dL Magnesium Level 1.70 L 1.80-2.40 mg/dL Total Bilirubin 0.4 0.2-1.0 mg/dL Aspartate Amino Transf (AST/SGOT) 15 10-37 U/L Alanine Aminotransferase (ALT/SGPT) 16 12-78 U/L Alkaline Phosphatase 205 H 50-136 U/L Total Protein 4.1 L 6.0-8.3 g/dL Albumin 1.3 L 3.5-5.0 g/dL Triglycerides Level 208 H 30-200 mg/dL Cholesterol Level 94 <200 mg/dL LDL Cholesterol 47 0-99 mg/dL HDL Cholesterol 19 L 35-85 mg/dL Blood Gas Specimen Type Arterial Arterial Blood pH 7.432 7.350-7.450 Arterial Blood Partial Pressure CO2 35 32-45 mmHg Arterial Blood Partial Pressure O2 82.2 L 83.0-108.0 mmHg Arterial Blood HCO3 22.6 21.0-28.0 mmol/L Arterial Blood Oxygen Saturation 95.6 94.0-98.0 % Arterial Blood Base Excess -1.2 -2.0-3.0 mmol/L Hemoglobin (Blood Gas) 11.3 L 12.0-16.0 g/dL Sodium (Blood Gas) 138 136-145 MMOL/L Bedside Potassium (Blood Gas) 4.1 3.4-4.5 MMOL/L Bedside Chloride (Blood Gas) 109 H 98-107 MMOL/L Bedside Glucose (Blood Gas) 279 H 65-95 MG/DL Bedside Ionized Calcium (Blood Gas) 1.15 1.15-1.33 MMOL/L Bedside Lactic Acid (Blood Gas) 1.31 H 0.36-0.75 MMOL/L Blood Gas Temperature 37.0 35.5-37.0 CELSIUS Blood Gas Respiration Rate 12.0 min. Blood Gas Vent Mode AC ROOM AIR FiO2 30.0 % Blood Gas Tidal Volume 400 ml Blood Gas PEEP 5 cm H2O Blood Gas Specimen Comment RR SAVANNAH, RN Prothrombin Time 11.3 9.6-11.6 SEC Prothromb Time International Ratio 1.07 0.85-1.15 Activated Partial Thromboplast Time 48.1 H 26.3-35.5 SEC Current Medications Medications (Trade) Dose Ordered Sig/Alexandra Route PRN Reason Start Time Stop Time Status Last Admin Dose Admin Albumin Human 100 ml @ 50 mls/hr AD IV 07/28/24 08:00 07/31/24 07:59 Cefepime HCl (MAXipime 2 gm vial) 2 gm Q24H IVPB 07/26/24 22:00 07/27/24 14:55 DC 07/26/24 22:54 2 GM Dextrose (D50w) 50 ml AD PRN IV HYPOGLYCEMIA PROTOCOL 07/27/24 16:00 08/26/24 15:59 Famotidine (Pepcid 20mg Vial) 20 mg Q24H IV 07/25/24 21:00 08/24/24 20:59 07/28/24 19:44 20 MG Fat Emulsion Intravenous 250 ml @ 42 mls/hr QMOFR IV 07/29/24 09:00 08/28/24 08:59 07/29/24 08:23 42 MLS/HR Fentanyl Citrate 100 ml @ 0 mls/hr PROTOCOL IV 07/26/24 13:30 07/27/24 12:04 DC Fentanyl Citrate 100 ml @ 0 mls/hr PROTOCOL IV 07/27/24 12:30 08/03/24 12:29 07/29/24 02:03 5 MLS/HR Fentanyl/Sodium Chloride 250 ml @ 0.1 mls/hr PROTOCOL IV 07/27/24 12:00 07/27/24 12:05 DC Fluconazole/ Sodium Chloride 100 ml @ 100 mls/hr Q24H IV 07/26/24 13:30 08/25/24 13:29 07/28/24 15:01 100 MLS/HR Furosemide (LASix 20MG VIAL) 20 mg Q8H IV 07/28/24 15:30 08/27/24 15:29 07/29/24 08:23 20 MG Glucagon (Glucagon 1mg Kit) 1 mg AD PRN IM HYPOGLYCEMIA PROTOCOL 07/27/24 16:00 08/26/24 15:59 Insulin Glargine (LANtus 100 UNITS/ML 10 ML VIAL) 5 units HS SQ 07/27/24 21:00 07/29/24 09:47 DC 07/28/24 20:48 5 UNITS Insulin Glargine (LANtus 100 UNITS/ML 10 ML VIAL) 15 units HS SQ 07/29/24 21:00 08/28/24 20:59 Insulin Human Regular (humuLIN R 100 UNIT/ML 3ML) INSULIN SLIDING SCAL... Q6H6 SQ 07/26/24 00:00 08/25/24 00:00 07/29/24 11:04 4 UNIT Magnesium Sulfate 50 ml @ 0 mls/hr PROTOCOL PRN IV hypomagnesemia 07/25/24 18:00 08/24/24 17:59 07/29/24 06:33 25 MLS/HR Meropenem (Merrem 1gm) 1 gm Q12H IVPB 07/27/24 15:30 08/03/24 03:31 07/29/24 02:42 1 GM Midazolam HCl 50 ml @ 0 mls/hr PROTOCOL IV 07/26/24 13:30 08/02/24 13:29 Ondansetron HCl (zoFRAN 4MG INJ) 4 mg Q6H PRN IVP NAUSEA/VOMITING 07/25/24 18:00 08/24/24 17:59 Pharmacy Profile Note (Lace Assessment) 1 each AD MISC 07/27/24 15:30 07/27/24 15:14 DC Pharmacy Profile Note (Pharmacy Communication) 1 each ONCE MISC 07/27/24 15:00 07/28/24 07:29 DC Phenylephrine HCl 100 mg/Sodium Chloride 250 ml @ 0 mls/hr AD PRN IV TITRATE 07/26/24 13:30 08/25/24 13:29 07/28/24 23:09 12.24 MLS/HR Piperacillin Sod/ Tazobactam Sod (Zosyn 3.375gm+NS 50ml) 3.375 gm Q12H IV 07/25/24 20:00 07/25/24 17:27 DC Piperacillin Sod/ Tazobactam Sod (Zosyn 3.375gm+NS 50ml) 3.375 gm Q8H IVPB 07/25/24 19:00 07/26/24 21:40 DC 07/26/24 19:40 3.375 GM Piperacillin Sod/ Tazobactam Sod (Zosyn 3.375gm+NS 50ml) 3.375 gm Q8H IVPB 07/25/24 20:00 07/25/24 18:49 DC Potassium Chloride 100 ml @ 50 mls/hr AD PRN IV POTASSIUM PROTOCOL 07/25/24 18:00 08/24/24 17:59 07/29/24 08:23 50 MLS/HR Propofol 100 ml @ 0 mls/hr AD PRN IV TITRATE 07/26/24 13:30 08/25/24 13:29 07/29/24 02:49 12.2 MLS/HR Sodium Chloride 1,000 ml @ 125 mls/hr Q8H IV 07/25/24 17:30 07/27/24 16:01 DC 07/27/24 07:58 125 MLS/HR Sodium Chloride (NS 50ml) 50 ml AD IV 07/25/24 17:00 07/25/24 17:29 DC Vancomycin HCl 250 ml @ 125 mls/hr Q24H IV 07/26/24 17:00 07/27/24 15:09 DC 07/26/24 19:55 125 MLS/HR Vancomycin HCl (Vancomycin Protocol) 1 each AD IV 07/25/24 17:00 07/27/24 14:55 DC DIAGNOSTICS / RADIOLOGY: [ ] ASSESSMENT: Septic shock requiring pressors Bacterial peritonitis POA Bowel perforation w/ [id number] S/P exploratory laparotomy with drainage of intra-abdominal abscess/ventral hernia repair/small-bowel resection/NS of adhesions/left open and a wound VAC on 07/26/24 per High risk for ischemic bowel-POA Intractable abdominal pain-POA Acute hypokalemia-POA this is Dehydration-POA SHARMILA not POA Lactic acidosis-POA Hyperglycemia 2/2 uncontrolled diabetes mellitus Primary HTN HX of colitis HX of inflammatory bowel disease (Crohn's Disease) HX of cardiac arrest HX of BLE cellulitis Recent hospitalization for UTI with outpatient Zosyn antibiotic with Dr. Diaz PLAN: The patient remains admitted to the intensive care unit Remains intubated, on mechanical ventilation Continue the patient on fentanyl and propofol Continue the patient on Jose Armando-Synephrine, wean as tolerated Continue with the abdominal wound VAC in place Critical Care consulted, follow input and recommendation Continue to follow surgical input and recommendation. Patient high risk for ischemic bowel, scheduled to OR today by General surgery. Continue the patient on broad-spectrum IV antibiotics, follow ID input and recommendation. Prognosis is guarded Disposition: Pending improvement in clinical condition FRANSICO HOWELL MD July 29, 2024 13:24
--- NOTE | 2024-07-29 13:57 | PN ---
INFECTIOUS DISEASE PROGRESS NOTE Date of Service: July 29, 2024 SUBJECTIVE: Patient was seen and examined at bedside in room 207. Patient remains intubated with FiO2 of 30%. Sedation has been stopped this morning and the plan is to possible extubate today. Patient is status post closure of exploratory laparotomy, repair of incarcerated ventral hernia repair and open cholecystectomy. Serosanguineous drainage present in the BYRON drains. Preliminary Abdominal abscess culture is growing Enterococcus Raffinosus and Klebsiella pneumoniae. The WBC remains elevated at 16.8 but no fever, temperature is 98.1. Will continue Meropenem and fluconazole. Patient's visiting at bedside. We will continue to follow patient's care. PHYSICAL EXAM EYES: Anicteric. Pupils equal and reactive. HENT: No oral thrush seen, moist Oral mucosa NECK: Supple, no JVD or thyromegaly. LUNGS: Good air entry. No rales, no rhonchi. Intubated. CARDIOVASCULAR: S1, S2 regular. No murmur heard. ABDOMEN: Soft, non tender, bowel sounds present, no organomegaly. Abdominal surgical incision with BYRON drains CENTRAL NERVOUS SYSTEM: Intubated. SKIN: No rashes, no swelling. LYMPHATICS: No peripheral lymphadenopathy. MUSCULOSKELETAL: No joint swelling, erythema or tenderness. EXTREMITIES: No cyanosis or clubbing. BACK: No deformity, no pressure ulcer. GENITOURINARY: No dysuria or hematuria. Troy catheter. Vital Sign (Last 12 Hours) 07/29/24 07/29/24 07/29/24 07/29/24 01:44 02:00 02:30 02:43 Pulse 75 76 76 81 Resp 12 12 14 14 B/P (MAP) 99/56 (70) 98/56 (70) 101/57 (72) 107/60 (76) 98/62 (74) 106/65 (79) Pulse Ox 97 99 98 97 FiO2 30 30 30 30 07/29/24 07/29/24 07/29/24 07/29/24 03:00 03:00 03:30 03:44 Pulse 78 80 75 Resp 16 16 16 B/P (MAP) 109/61 (77) 112/63 (79) 101/56 (71) 104/66 (79) Pulse Ox 97 96 97 98 O2 Delivery Ventilator+ FiO2 30 30 30 30 07/29/24 07/29/24 07/29/2425 03:55 04:00 04:00 04:00 Temp 98.4 Pulse 74 77 Resp 19 B/P (MAP) 107/59 (75) Pulse Ox 96 FiO2 30 30 30 07/29/24 07/29/24 07/29/24 07/29/24 04:30 04:44 05:00 05:30 Pulse 82 77 79 78 Resp 19 19 14 14 B/P (MAP) 119/66 (83) 115/64 (81) 121/67 (85) 115/63 (80) 109/65 (80) Pulse Ox 97 99 99 98 FiO2 30 30 30 30 07/29/24 07/29/24 07/29/24 07/29/24 05:44 05:59 06:14 06:29 Pulse 75 77 77 80 Resp 14 14 16 16 B/P (MAP) 111/62 (78) 111/61 (78) 111/61 (78) 120/67 (84) 110/63 (79) Pulse Ox 99 99 99 99 FiO2 30 30 30 30 07/29/24 07/29/24 07/29/24 07/29/24 06:44 06:55 06:59 07:00 Pulse 84 81 80 84 Resp 16 16 16 B/P (MAP) 140/76 (97) 116/64 (81) 140/76 (97) 131/83 (99) 131/83 (99) Pulse Ox 99 97 99 FiO2 30 30 30 30 07/29/24 07/29/24 07/29/24 07/29/24 07:15 07:30 07:37 07:40 Pulse 80 83 Resp 16 17 B/P (MAP) 116/64 (81) 116/64 (81) Pulse Ox 97 97 97 O2 Delivery Ventilator+ FiO2 30 30 30 07/29/24 07/29/24 07/29/24 07/29/24 07:45 08:00 08:00 08:15 Temp 98.1 98.1 Pulse 84 82 84 Resp 22 18 16 B/P (MAP) 116/63 (80) 113/62 (79) 113/61 (78) 113/66 (82) Pulse Ox 98 99 99 07/29/24 07/29/24 07/29/24 07/29/24 08:30 08:45 09:00 09:15 Pulse 83 90 97 104 Resp 12 11 11 10 B/P (MAP) 112/60 (77) 99/53 (68) 121/66 (84) 124/69 (87) 121/73 (89) Pulse Ox 99 100 100 100 07/29/24 07/29/24 07/29/24 07/29/24 09:21 09:30 09:45 10:00 Pulse 107 105 112 109 Resp 10 14 10 B/P (MAP) 121/68 (85) 124/69 (87) 116/65 (82) 107/73 (84) Pulse Ox 100 99 100 FiO2 30 07/29/24 07/29/24 07/29/24 07/29/24 10:15 10:30 10:45 11:00 Pulse 113 113 112 113 Resp 13 13 12 15 B/P (MAP) 112/64 (80) 120/67 (84) 120/67 (84) 112/63 (79) 115/74 (88) Pulse Ox 99 100 100 98 07/29/24 07/29/24 07/29/24 07/29/24 11:15 11:30 11:32 11:45 Pulse 113 115 116 113 Resp 15 15 15 B/P (MAP) 124/70 (88) 130/71 (90) 120/66 (84) Pulse Ox 100 100 100 FiO2 30 07/29/24 07/29/24 07/29/24 07/29/24 12:00 12:00 12:00 12:00 Temp 98.1 98.1 Pulse 114 Resp 15 B/P (MAP) 117/66 (83) 114/68 (83) Pulse Ox 100 100 O2 Delivery Ventilator+ FiO2 30 30 07/29/24 07/29/24 07/29/24 12:15 12:30 12:45 Pulse 116 117 117 Resp 6 11 18 B/P (MAP) 122/67 (85) 118/65 (82) 115/63 (80) Pulse Ox 100 100 100 Intake & Output (last 24hrs) 07/28/24 07/28/24 07/29/24 15:00 23:00 07:00 Intake Total 502.6 ml 801.0 ml 910.2 ml Output Total 325 ml 1060 ml 2730 ml Balance 177.6 ml -259.0 ml -1819.8 ml LABS: Laboratory: Test 07/29/24 10:59 07/29/24 05:10 07/28/24 16:35 07/28/24 07:56 Range/Units Whole Blood Glucose 228 H 70-110 MG/DL White Blood Count 16.8 H 4.8-10.8 K/uL Red Blood Count 3.17 L 4.00-5.50 MIL/uL Hemoglobin 8.6 L 12.0-16.0 g/dL Hematocrit 28.5 L 36-48 % Mean Corpuscular Volume 89.9 79-99 fL Mean Corpuscular Hemoglobin 27.1 27.0-33.0 pg Mean Corpuscular Hemoglobin Concent 30.2 L 32.0-36.0 g/dL Red Cell Distribution Width 18.3 H 11.0-15.5 % Platelet Count 76 L 130-400 K/uL Mean Platelet Volume 11.7 H 7.5-10.5 fL Immature Granulocyte % (Auto) 2.4 H 0-1 % Neutrophils (%) (Auto) 85.4 H 40.0-77.0 % Lymphocytes (%) (Auto) 8.6 L 21.0-51.0 % Monocytes (%) (Auto) 3.2 3.0-13.0 % Eosinophils (%) (Auto) 0.0 0.0-8.0 % Basophils (%) (Auto) 0.4 0.0-5.0 % Neutrophils # (Auto) 14.3 H 1.8-7.7 K/uL Lymphocytes # (Auto) 1.5 1.0-4.8 K/uL Monocytes # (Auto) 0.5 0.1-1.0 K/uL Eosinophils # (Auto) 0.00 0.00-0.70 K/uL Basophils # (Auto) 0.06 0.00-0.20 K/uL Absolute Immature Granulocyte (auto 0.41 0-1 K/uL Nucleated Red Blood Cells 0.0 0.0-0.19 % Sodium Level 144 136-145 mmol/L Potassium Level 3.7 3.5-5.1 mmol/L Chloride Level 110 101-111 mmol/L Carbon Dioxide Level 26 21-32 mmol/L Blood Urea Nitrogen 24 H 7-18 mg/dL Creatinine 0.7 0.5-1.0 mg/dL Glomerular Filtration Rate Calc 99 >90 mL/min Random Glucose 311 H 70-105 mg/dL Lactic Acid Level 1.6 0.8-2.5 mmol/L Total Calcium 7.6 L 8.5-10.1 mg/dL Phosphorus Level 2.7 2.5-4.9 mg/dL Magnesium Level 1.70 L 1.80-2.40 mg/dL Total Bilirubin 0.4 0.2-1.0 mg/dL Aspartate Amino Transf (AST/SGOT) 15 10-37 U/L Alanine Aminotransferase (ALT/SGPT) 16 12-78 U/L Alkaline Phosphatase 205 H 50-136 U/L Total Protein 4.1 L 6.0-8.3 g/dL Albumin 1.3 L 3.5-5.0 g/dL Triglycerides Level 208 H 30-200 mg/dL Cholesterol Level 94 <200 mg/dL LDL Cholesterol 47 0-99 mg/dL HDL Cholesterol 19 L 35-85 mg/dL Blood Gas Specimen Type Arterial Arterial Blood pH 7.432 7.350-7.450 Arterial Blood Partial Pressure CO2 35 32-45 mmHg Arterial Blood Partial Pressure O2 82.2 L 83.0-108.0 mmHg Arterial Blood HCO3 22.6 21.0-28.0 mmol/L Arterial Blood Oxygen Saturation 95.6 94.0-98.0 % Arterial Blood Base Excess -1.2 -2.0-3.0 mmol/L Hemoglobin (Blood Gas) 11.3 L 12.0-16.0 g/dL Sodium (Blood Gas) 138 136-145 MMOL/L Bedside Potassium (Blood Gas) 4.1 3.4-4.5 MMOL/L Bedside Chloride (Blood Gas) 109 H 98-107 MMOL/L Bedside Glucose (Blood Gas) 279 H 65-95 MG/DL Bedside Ionized Calcium (Blood Gas) 1.15 1.15-1.33 MMOL/L Bedside Lactic Acid (Blood Gas) 1.31 H 0.36-0.75 MMOL/L Blood Gas Temperature 37.0 35.5-37.0 CELSIUS Blood Gas Respiration Rate 12.0 min. Blood Gas Vent Mode AC ROOM AIR FiO2 30.0 % Blood Gas Tidal Volume 400 ml Blood Gas PEEP 5 cm H2O Blood Gas Specimen Comment RR SAVANNAH, RN Prothrombin Time 11.3 9.6-11.6 SEC Prothromb Time International Ratio 1.07 0.85-1.15 Activated Partial Thromboplast Time 48.1 H 26.3-35.5 SEC DIAGNOSTICS / RADIOLOGY: PATIENT: AMADA ROBLEDO ACCT: [id number] LOC: [facility] U: [id number] AGE/SX: 59/F ROOM: [facility] RE07/25/[address]: MARAH OAKES MD : 1965 BED: 1 DIS: STATUS: ADM IN TLOC: SPEC: [id number] HERMELINDA: 07/26/24 STATUS: RES REQ: [id number] RECD: 07/26/24-[address] [facility] [address]: FERNANDO CONTRERAS MD SOURCE: ABDOMEN ENTR: 07/26/24-[address]: MILLIE CHATTERJEE MD SPDESC: ABDOMINAL MARAH OAKES MD,KERLINE JAVIER,MARYCRUZ PEACOCK,SOURAV Tamayo MD ORDERED: PENG CULTURE, AEROBIC CULTURE Procedure Result [place] Date-Time - ANAEROBIC CULTURE Preliminary 07/29/24-1023 M[facility] COLONY DESCRIPTION: REPORT 1: NO ANAEROBES AT 16-23 HOURS; STUDIES TO CONTINUE REPORT 2: NO ANAEROBES AT 36-47 HOURS; STUDIES TO CONTINUE Test(s) performed by: [facility] [address] [place] [address] AEROBIC CULTURE Final 07/29/24-1022 MRL COLONY DESCRIPTION: REPORT 1: 2+ GRAM NEGATIVE RODS IDENTIFICATION AND SENSITIVITY TO FOLLOW REPORT 2: STUDIES TO CONTINUE RUN DATE: 07/29/24 [facility] PAGE 2 RUN TIME: [phone] [address], [place] [address] Department of Laboratories [facility] # [id number] Billing Associate: Maureen Salgado DO Specimen Report - SPEC: [id number] PATIENT: AMADA ROBLEDO [id number] (Continued) Procedure Result [place] Date-Time CONTINUED ON NEXT PAGE RUN DATE: 07/29/24 [facility] PAGE 3 RUN TIME: [id number] [address], [place] [address] Department [facility] CLIA # [id number] Billing Associate: Maureen Salgado DO Specimen Report SPEC: [id number] PATIENT: AMADA ROBLEDO [id number] (Continued) Procedure Result [place] Date-Time AEROBIC CULTURE Final (continued) 07/29/24-1023 REPORT 3: 1+ GRAM POSITIVE COCCI IN CHAINS . IDENTIFICATION AND SENSITIVITY TO FOLLOW ENTEROCOCCUS RAFFINOSUS KLEBSIELLA PNEUMONIAE ENT RAFFIN K PNEUMO M.I.C. RX M.I.C. RX --------- ---- --------- ---- AMPICILLIN <=2 S AZTREONAM <=4 S CEFAZOLIN <=2 S CEFTAZIDIME/AVIBACTAM <=8 S GENTAMICIN <=2 S LEVOFLOXACIN <=0.5 S VANCOMYCIN <=0.5 S AMPICILLIN/SULBACTAM <=8/4 S GENTAMICIN Synergy Screen <=500 S MEROPENEM <=1 S PENICILLIN 2 S PIPERACILLIN/TAZOBACTAM <=8 S TRIMETHOPRIM/SUFLAMETHOXAZOLE <=2/38 S ASSESSMENT: Intestinal perforation, status post exploratory laparotomy and bowel resection. Intra-abdominal abscess, status post open drainage. Peritonitis. Respiratory failure, status post intubation. Leukocytosis. Anemia. History of colitis. PLAN: Continue Meropenem. Continue fluconazole. Continue GI prophylaxis. Continue critical care support. Continue ventilatory support. We will monitor electrolytes. This case was reviewed and discussed with my supervising physician and the above assessment and plan was formulated and agreed upon. ATTESTATION BY PHYSICIAN I have seen and examined the patient. I reviewed the documentation, medical decision making, and treatment plan as noted by the mid-level provider above. I agree with the findings and plan of care. MILLIE CHATTERJEE MD, [facility] July 29, 2024 13:57
[2024-07-29] MEDS: dexmedeTOMIDine 400MCG/NS100ML IV PRN (17:05)
[2024-07-29] MEDS: hydroMORPHone 0.5 MG SYG (0.5MG/0.5ML) IVP PRN (17:50)
[2024-07-29 18:29] LABS: POTASSIUM 3.5 mmol/L (3.5-5.1)
[2024-07-29] MEDS: M.V.I. IV [ADULT] 10 ML in CLINIMIX-E 5%AA /D15%W 2000ML 2,000 ML IV ONE (20:32)
[2024-07-29] MEDS: INSULIN GLARgine 100 UNITS/ML 10 ML VIAL SQ SCH (20:50)
[2024-07-29] MEDS ORDERED: INSULIN GLARgine 100 UNITS/ML 10 ML VIAL SQ SCH (21:00)
[2024-07-30] VITALS (105 sets, daily range): BP systolic 94–170; BP diastolic 53–113; PULSE 67–107; RESP 11–26; TEMP 97.9–99.6; O2SAT 97–100
[2024-07-30 04:39] LABS: BASOPHILS # (AUTO) 0.05 K/uL (0.00-0.20); BASOPHILS % (AUTO) 0.5 % (0.0-5.0); EOSINOPHILS # (AUTO) 0.03 K/uL (0.00-0.70); EOSINOPHILS % (AUTO) 0.3 % (0.0-8.0); HEMATOCRIT 27.4 % (36-48); IMMATURE GRANULOCYTE ABSOLUTE 0.56 K/uL (0-1); LYMPHOCYTES # (AUTO) 1.9 K/uL (1.0-4.8); LYMPHOCYTES % (AUTO) 17.8 % (21.0-51.0); MEAN CORPUSCULAR HEMOGLOBIN 26.4 pg (27.0-33.0); MEAN CORPUSCULAR HGB CONC 30.3 g/dL (32.0-36.0); MEAN CORPUSCULAR VOLUME 87.3 fL (79-99); MONOCYTES # (AUTO) 0.6 K/uL (0.1-1.0); MONOCYTES % (AUTO) 5.4 % (3.0-13.0); NEUTROPHILS # (AUTO) 7.5 K/uL (1.8-7.7); NEUTROPHILS % (AUTO) 70.7 % (40.0-77.0); PLATELET COUNT (AUTO) 90 K/uL (130-400); RED BLOOD CELL COUNT(AUTO) 3.14 MIL/uL (4.00-5.50); RED CELL DISTRIBUTION WIDTH 18.3 % (11.0-15.5); WHITE BLOOD COUNT (AUTO) 10.6 K/uL (4.8-10.8)
[2024-07-30 05:05] LABS: ALBUMIN 1.3 g/dL (3.5-5.0); BILIRUBIN,TOTAL 0.4 mg/dL (0.2-1.0); CREATININE 0.5 mg/dL (0.5-1.0); PHOSPHORUS 2.1 mg/dL (2.5-4.9); POTASSIUM 3.8 mmol/L (3.5-5.1); TOTAL PROTEIN, SERUM 4.4 g/dL (6.0-8.3)
--- NOTE | 2024-07-30 09:41 | HMCIMG ---
Exam Type: CHEST 1VW Clinical Information: INTUBATED Comparison: None Findings: Pulmonary pattern is as before. No worrisome interval changes have taken place. Impression: Stable exam.
--- NOTE | 2024-07-30 10:00 | PN ---
[facility] PROGRESS NOTE Date Patient Seen: July 30, 2024 Time of Visit: 10:00 Supervising Physician: Dr. Harrington Primary Care Physician: [Dr. Villarreal of [facility] ] Outpatient Specialists: [GI: Dr. Solitario ] Inpatient Consults: [Dr. Quintero of surgery ] PROBLEM LIST: Septic shock from below requiring pressors,resolving Bacterial peritonitis POA + Enterococcus Raffinosus and Klebsiella pneumoniae Bowel perforation w/ Pneumoperitoneum-POA S/P exploratory laparotomy with drainage of intra-abdominal abscess/ventral hernia repair/small-bowel resection/lysis of adhesions/left open and a wound VAC on 07/26/24 per Removal of previously placed ABThera wound VAC & Placement of Seprafilm adhesion barrier 07/28/24 per Incarcerated ventral hernia POA Primary repair ventral hernia 07/28/24 Left Lateral Hernia POA Primary repair left flank hernia 07/28/24 Acute cholecystitis, POAopen cholecystectomy on 07/28/24 High risk for ischemic bowel-POA Acute hypokalemia-POA Dehydration-POA SHARMILA not POA Lactic acidosis-POA Hyperglycemia 2/2 uncontrolled diabetes mellitus Primary HTN HX of colitis HX of inflammatory bowel disease (Crohn's Disease) Recent hospitalization for UTI with outpatient Zosyn antibiotic with Dr. Diaz INTERVAL HISTORY: This is Day 1 open cholecystectomy with removal of previously placed ABTHera wound VAC, placement of ceftriaxone home adhesion barrier, primary repair of left flank hernia and repair of ventral hernia per . no further plans of taking pt back to OR per report. Per RN no major overnight event. Patient is on sedation vacation this morning still 117 to wake up grimaces to movement. Will attempt CPAP this morning. Weaning Jose Armando-Synephrine currently yesterday 0.1 mcg/kg per minute. Lines: Right IJ Cordis, arterial line, OG tube, ET tubes, Troy catheter, DP is. Left BYRON drain 320 mL with red BYRON draining 120 mL. She remains NPO on TPN at 75 mL/hour. Urine output of 3.6 L,-1.9 L balance Patient's problems has been updated of plan of care and verbalizes understandin g. He continues IV antibiotics. Intra-abdominal fluid culture growing positive for Klebsiella pneumoniae and Enterococcus Raffinosus. White count is 9.8 similar to yesterday, H&H stable 8.61/28.5 platelet count trending down 76 K today. Creatinine of 0.7 with GFR of 99 kidneys are improved. Magnesium of 1.7 covered per protocol. Blood sugar of 311 mg/dL insulin adjusted. X-ray stable. ET tube 4.4 cm with the ld. No pneumothorax. 07/30/2024: At the time of my evaluation, the patient was lying in bed. She remains intubated and on mechanical vent support. On the monitor, the patient was marginally tachycardic, tachypneic and blood pressure within normal ranges. Laboratory data today showed improved WBC down to 10.6 there was no profound anemia or thrombocytopenia. Chemistry panel showed no major electrolyte derangement or renal parameter changes. No new microbiology data for review today. Chest imaging showed bilateral pneumonic infiltrates and cardiomegaly. No other complaint. REVIEW OF SYSTEMS: Unable to perform due to patient's intubated. PHYSICAL EXAM: GENERAL: Critically ill, intubated. HEENT: Sclera non icteric, moist mucosa pupils3 mm echo and sluggish NECK: Supple, no JVD, trachea midline right IJ Cordis LUNGS: Diminished breath sounds bilaterally. No wheezes HEART: Regular rate and rhythm. Normal S1 and S2, without murmurs ABD: Obese abdomen, mid abdomen dressing clean dry and intact. Bilateral BYRON present. Draining serosanguineous EXT: No clubbing cyanosis or edema. Troy in situ NEURO: Sedated and intubated. Vital Signs (last 8hr) Date Time Temp Pulse Resp B/P (MAP) Pulse Ox O2 Delivery O2 Flow Rate FiO2 07/30/24 08:45 100 15 125/74 (91) 99 114/75 (88) 07/30/24 08:30 104 16 123/71 (88) 98 07/30/24 08:15 87 16 117/68 (84) 97 07/30/24 08:00 76 17 105/60 (75) 99 07/30/24 08:00 99.7 07/30/24 07:58 30 07/30/24 07:45 91 13 118/69 (85) 96 102/69 (80) 07/30/24 07:30 94 18 123/71 (88) 95 30 07/30/24 07:15 102 17 148/84 (105) 99 07/30/24 07:00 77 12 127/71 (89) 99 07/30/24 06:45 82 15 144/82 (102) 97 07/30/24 06:44 81 17 142/81 (101) 99 129/77 (94) 07/30/24 06:30 79 12 133/76 (95) 98 07/30/24 06:22 78 30 07/30/24 06:15 73 15 135/76 (95) 99 07/30/24 06:00 81 14 130/75 (93) 98 07/30/24 05:45 77 14 128/74 (92) 99 07/30/24 05:44 78 13 128/73 (91) 98 116/72 (87) 07/30/24 05:30 78 14 125/71 (89) 97 07/30/24 05:15 77 18 119/68 (85) 97 07/30/24 05:00 90 13 124/71 (88) 99 07/30/24 04:45 78 17 132/75 (94) 100 122/74 (90) 07/30/24 04:41 135/87 07/30/24 04:30 74 13 127/72 (90) 99 07/30/24 04:15 77 12 147/80 (102) 99 07/30/24 04:00 100 Ventilator+ 30 07/30/24 04:00 97.9 07/30/24 04:00 79 12 135/72 (93) 99 07/30/24 03:58 30 07/30/24 03:45 73 12 151/78 (102) 99 135/87 (103) 07/30/24 03:30 74 13 147/76 (99) 99 07/30/24 03:23 69 30 07/30/24 03:15 73 12 141/74 (96) 99 07/30/24 03:00 74 13 146/76 (99) 99 07/30/24 02:45 74 15 135/72 (93) 99 126/77 (93) 07/30/24 02:30 78 22 131/71 (91) 98 07/30/24 02:15 79 19 126/69 (88) 99 LABS: Hematology Labs: Test 07/30/24 04:27 Range/Units White Blood Count 10.6 # 4.8-10.8 K/uL Red Blood Count 3.14 L 4.00-5.50 MIL/uL Hemoglobin 8.3 L 12.0-16.0 g/dL Hematocrit 27.4 L 36-48 % Mean Corpuscular Volume 87.3 79-99 fL Mean Corpuscular Hemoglobin 26.4 L 27.0-33.0 pg Mean Corpuscular Hemoglobin Concent 30.3 L 32.0-36.0 g/dL Red Cell Distribution Width 18.3 H 11.0-15.5 % Platelet Count 90 L 130-400 K/uL Mean Platelet Volume 11.8 H 7.5-10.5 fL Immature Granulocyte % (Auto) 5.3 H 0-1 % Neutrophils (%) (Auto) 70.7 40.0-77.0 % Lymphocytes (%) (Auto) 17.8 L 21.0-51.0 % Monocytes (%) (Auto) 5.4 3.0-13.0 % Eosinophils (%) (Auto) 0.3 0.0-8.0 % Basophils (%) (Auto) 0.5 0.0-5.0 % Neutrophils # (Auto) 7.5 1.8-7.7 K/uL Lymphocytes # (Auto) 1.9 1.0-4.8 K/uL Monocytes # (Auto) 0.6 0.1-1.0 K/uL Eosinophils # (Auto) 0.03 0.00-0.70 K/uL Basophils # (Auto) 0.05 0.00-0.20 K/uL Absolute Immature Granulocyte (auto 0.56 0-1 K/uL Nucleated Red Blood Cells 0.0 0.0-0.19 % Chemistry Labs: Test 07/30/24 05:42 07/30/24 04:27 07/29/24 18:16 07/29/24 05:10 Range/Units Whole Blood Glucose 174 H 70-110 MG/DL Sodium Level 143 136-145 mmol/L Potassium Level 3.8 3.5-5.1 mmol/L Chloride Level 108 101-111 mmol/L Carbon Dioxide Level 29 21-32 mmol/L Blood Urea Nitrogen 25 H 7-18 mg/dL Creatinine 0.5 0.5-1.0 mg/dL Glomerular Filtration Rate Calc 107 >90 mL/min Random Glucose 183 H 70-105 mg/dL Lactic Acid Level 1.0 0.8-2.5 mmol/L Total Calcium 7.5 L 8.5-10.1 mg/dL Phosphorus Level 2.1 L 2.5-4.9 mg/dL Total Bilirubin 0.4 0.2-1.0 mg/dL Aspartate Amino Transf (AST/SGOT) 24 10-37 U/L Alanine Aminotransferase (ALT/SGPT) 18 12-78 U/L Alkaline Phosphatase 280 #H 50-136 U/L Total Protein 4.4 L 6.0-8.3 g/dL Albumin 1.3 L 3.5-5.0 g/dL Magnesium Level 2.00 1.80-2.40 mg/dL Triglycerides Level 208 H 30-200 mg/dL Cholesterol Level 94 <200 mg/dL LDL Cholesterol 47 0-99 mg/dL HDL Cholesterol 19 L 35-85 mg/dL DIAGNOSTICS / RADIOLOGY RESULTS: [ ] PLAN 07/30/2024: For now, the patient remains intubated. She was started on CPAP trials and sedation vacation. The intention is to extubate the patient once she meets criteria for extubation. She is going to remain antibiotic coverage as ordered. And we will follow the guidance of the Infectious Disease specialist for further changes. We will repeat surveillance labs tomorrow. We will follow the guidance of the general surgeon regarding her recent exploratory laparotomy with added procedures. We will continue to provide general supportive care, GI and DVT prophylaxis. Further orders per attending MD and hospital course. NEURO: Minimize central acting medications as possible. Fall Precautions. Well lighted room through the day and minimize interruptions through the night to prevent acute delirium. PULMONARY: Titrate Fio2 to keep Spo2 > or = 90% DuoNebs and CPT as needed IS hourly while awake for pulmonary hygiene once extubated Out of bed to chair as tolerated once extubated CARDIOVASCULAR: Follow hemodynamics. # septic shock -Titrate vasopressor to keep MAP >65 or systolic blood pressure >95mmHg -maintain map above 65, on Jose Armando-Synephrine due to tachycardia Wean Jose Armando-Synephrine as possible DRIPS: Jose Armando-Synephrine wean TPN 75 mL/hour Precedex p.r.n. agitation LINES: Right IJ CVC Arterial line Troy catheter ET tube OG tube GI & NUTRITION: Continue nutritional support Aspirations precautions TPN for nutrition for now Follow General surgery recs KIDNEYS & ELECTROLYTES: Strict monitoring of intake and output Daily weights Avoid nephrotoxic agents Monitor electrolytes and replace as needed Goal urine output of 30mL/hr or 0.5mL/kg/hr ENDOCRINE: Maintain blood glucose between 100-180 at all times. Insulin sliding scale for blood glucose management Hemoglobin A1c 8.1 15 units of Lantus subQ b.i.d. -ISS q.6 hours Avoid hypoglycemia INFECTIOUS DISEASE: Trend temperature. Laswon-culture if febrile. Micro: [ ] 07/26/24 Intra-abdominal fluid culture growing Klebsiella pneumoniae and Enterococcus Raffinosus 07/25/24 blood cultures with no growth Antibiotics: Meropenem Fluconazole HEMATOLOGY & COAGULATION: Monitor H&H. Keep Hgb > 7 Transfuse 1 unit of PRBC for Hgb < 7 Transfuse 1 pack of platelets of platelets < 20, 000 Watch for any signs and symptoms of bleeding SKIN: Pressure ulcer prevention per facility protocol Rehab: PT/OT Prophylaxis: GI: famotidine DVT: scd Code Status: Full Resuscitation Disposition: ICU Other: I personally spent 62 minutes of critical care time in treatment of this patient. This includes patient management, time at bedside, time reviewing tests , labs, appropriate images and studies, documentation, and patient care coordination. This time excludes separately billable procedures. Case was discussed and seen with my supervising physician. The above plan was formulated and agreed upon. ASHER ALVAREZ NP July 30, 2024 10:00
--- NOTE | 2024-07-30 10:22 | PN ---
INFECTIOUS DISEASE PROGRESS NOTE Date of Service: July 30, 2024 SUBJECTIVE: Patient was seen and examined at bedside in room 207. Patient remains intubated with FiO2 of 30%. Extubation will be reattempted today. Patient with a low-grade fever of 99.7, the WBC however has trended down to 10.6. Hemoglobin is low at 8.3 and we will continue to monitor. Patient is status post closure of exploratory laparotomy, repair of incarcerated ventral hernia repair and open cholecystectomy. The 2 BYRON drains intact. We will follow up on the final culture results of the Abdominal abscess. Will continue Meropenem and fluconazole. Patient's visiting at bedside. PHYSICAL EXAM EYES: Anicteric. Pupils equal and reactive. HENT: No oral thrush seen, moist Oral mucosa NECK: Supple, no JVD or thyromegaly. LUNGS: Good air entry. No rales, no rhonchi. Intubated. CARDIOVASCULAR: S1, S2 regular. No murmur heard. ABDOMEN: Soft, non tender, bowel sounds present, no organomegaly. Abdominal surgical incision with BYRON drains CENTRAL NERVOUS SYSTEM: Intubated. SKIN: No rashes, no swelling. LYMPHATICS: No peripheral lymphadenopathy. MUSCULOSKELETAL: No joint swelling, erythema or tenderness. EXTREMITIES: No cyanosis or clubbing. BACK: No deformity, no pressure ulcer. GENITOURINARY: No dysuria or hematuria. Troy catheter. Vital Sign (Last 12 Hours) 07/29/24 07/29/24 07/29/24 07/29/24 22:30 22:45 23:00 23:15 Pulse 82 74 73 74 Resp 15 12 12 15 B/P (MAP) 140/77 (98) 136/75 (95) 141/76 (97) 140/76 (97) 126/74 (91) Pulse Ox 99 100 99 100 07/29/24 07/29/24 07/29/24 07/30/24 23:30 23:45 23:58 00:00 Temp 98.8 Pulse 76 76 Resp 18 12 B/P (MAP) 133/74 (93) 130/73 (92) 123/81 (95) Pulse Ox 99 100 FiO2 30 07/30/24 07/30/24 07/30/24 07/30/24 00:00 00:00 00:15 00:30 Pulse 80 73 75 Resp 17 14 12 B/P (MAP) 123/69 (87) 120/68 (85) 116/66 (83) Pulse Ox 100 100 100 100 O2 Delivery Ventilator+ FiO2 30 07/30/24 07/30/24 07/30/24 07/30/24 00:43 00:45 01:00 01:15 Pulse 67 74 77 76 Resp 12 18 13 B/P (MAP) 121/69 (86) 121/68 (85) 123/68 (86) 107/67 (80) Pulse Ox 100 100 100 FiO2 30 07/30/24 07/30/24 07/30/24 07/30/24 01:30 01:45 02:00 02:15 Pulse 75 74 76 79 Resp 15 16 16 19 B/P (MAP) 126/70 (88) 132/72 (92) 137/74 (95) 126/69 (88) 120/74 (89) Pulse Ox 100 100 100 99 07/30/24 07/30/24 07/30/24 07/30/24 02:30 02:45 03:00 03:15 Pulse 78 74 74 73 Resp 22 15 13 12 B/P (MAP) 131/71 (91) 135/72 (93) 146/76 (99) 141/74 (96) 126/77 (93) Pulse Ox 98 99 99 99 07/30/24 07/30/24 07/30/24 07/30/24 03:23 03:30 03:45 03:58 Pulse 69 74 73 Resp 13 12 B/P (MAP) 147/76 (99) 151/78 (102) 135/87 (103) Pulse Ox 99 99 FiO2 30 30 07/30/24 07/30/24 07/30/24 07/30/24 04:00 04:00 04:00 04:15 Temp 97.9 Pulse 79 77 Resp 12 12 B/P (MAP) 135/72 (93) 147/80 (102) Pulse Ox 99 100 99 O2 Delivery Ventilator+ FiO2 30 07/30/24 07/30/24 07/30/24 07/30/24 04:30 04:41 04:45 05:00 Pulse 74 78 90 Resp 13 17 13 B/P (MAP) 127/72 (90) 135/87 132/75 (94) 124/71 (88) 122/74 (90) Pulse Ox 99 100 99 07/30/24 07/30/24 07/30/24 07/30/24 05:15 05:30 05:44 05:45 Pulse 77 78 78 77 Resp 18 14 13 14 B/P (MAP) 119/68 (85) 125/71 (89) 128/73 (91) 128/74 (92) 116/72 (87) Pulse Ox 97 97 98 99 07/30/24 07/30/24 07/30/24 07/30/24 06:00 06:15 06:22 06:30 Pulse 81 73 78 79 Resp 14 15 12 B/P (MAP) 130/75 (93) 135/76 (95) 133/76 (95) Pulse Ox 98 99 98 FiO2 30 07/30/24 07/30/24 07/30/24 07/30/24 06:44 06:45 07:00 07:15 Pulse 81 82 77 102 Resp 17 15 12 17 B/P (MAP) 142/81 (101) 144/82 (102) 127/71 (89) 148/84 (105) 129/77 (94) Pulse Ox 99 97 99 99 07/30/24 07/30/24 07/30/24 07/30/24 07:30 07:45 07:58 08:00 Temp 99.7 Pulse 94 91 Resp 18 13 B/P (MAP) 123/71 (88) 118/69 (85) 102/69 (80) Pulse Ox 95 96 FiO2 30 30 07/30/24 07/30/24 07/30/24 07/30/24 08:00 08:15 08:30 08:45 Pulse 76 87 104 100 Resp 17 16 16 15 B/P (MAP) 105/60 (75) 117/68 (84) 123/71 (88) 125/74 (91) 114/75 (88) Pulse Ox 99 97 98 99 07/30/24 07/30/24 07/30/24 07/30/24 09:00 09:15 09:30 09:45 Pulse 106 103 98 97 Resp 16 19 21 16 B/P (MAP) 129/78 (95) 120/74 (89) 117/80 (92) 100/66 (77) 102/75 (84) Pulse Ox 99 100 99 99 Intake & Output (last 24hrs) 07/29/24 07/29/2425 14:59 22:59 06:59 Intake Total 1054.6 ml 796.6 ml 941.5 ml Output Total 840 ml 1200 ml 130 ml Balance 214.6 ml -403.4 ml 811.5 ml LABS: Laboratory: Test 07/30/24 05:42 07/30/24 04:27 07/29/24 18:16 07/29/24 05:10 Range/Units Whole Blood Glucose 174 H 70-110 MG/DL White Blood Count 10.6 # 4.8-10.8 K/uL Red Blood Count 3.14 L 4.00-5.50 MIL/uL Hemoglobin 8.3 L 12.0-16.0 g/dL Hematocrit 27.4 L 36-48 % Mean Corpuscular Volume 87.3 79-99 fL Mean Corpuscular Hemoglobin 26.4 L 27.0-33.0 pg Mean Corpuscular Hemoglobin Concent 30.3 L 32.0-36.0 g/dL Red Cell Distribution Width 18.3 H 11.0-15.5 % Platelet Count 90 L 130-400 K/uL Mean Platelet Volume 11.8 H 7.5-10.5 fL Immature Granulocyte % (Auto) 5.3 H 0-1 % Neutrophils (%) (Auto) 70.7 40.0-77.0 % Lymphocytes (%) (Auto) 17.8 L 21.0-51.0 % Monocytes (%) (Auto) 5.4 3.0-13.0 % Eosinophils (%) (Auto) 0.3 0.0-8.0 % Basophils (%) (Auto) 0.5 0.0-5.0 % Neutrophils # (Auto) 7.5 1.8-7.7 K/uL Lymphocytes # (Auto) 1.9 1.0-4.8 K/uL Monocytes # (Auto) 0.6 0.1-1.0 K/uL Eosinophils # (Auto) 0.03 0.00-0.70 K/uL Basophils # (Auto) 0.05 0.00-0.20 K/uL Absolute Immature Granulocyte (auto 0.56 0-1 K/uL Nucleated Red Blood Cells 0.0 0.0-0.19 % Sodium Level 143 136-145 mmol/L Potassium Level 3.8 3.5-5.1 mmol/L Chloride Level 108 101-111 mmol/L Carbon Dioxide Level 29 21-32 mmol/L Blood Urea Nitrogen 25 H 7-18 mg/dL Creatinine 0.5 0.5-1.0 mg/dL Glomerular Filtration Rate Calc 107 >90 mL/min Random Glucose 183 H 70-105 mg/dL Lactic Acid Level 1.0 0.8-2.5 mmol/L Total Calcium 7.5 L 8.5-10.1 mg/dL Phosphorus Level 2.1 L 2.5-4.9 mg/dL Total Bilirubin 0.4 0.2-1.0 mg/dL Aspartate Amino Transf (AST/SGOT) 24 10-37 U/L Alanine Aminotransferase (ALT/SGPT) 18 12-78 U/L Alkaline Phosphatase 280 #H 50-136 U/L Total Protein 4.4 L 6.0-8.3 g/dL Albumin 1.3 L 3.5-5.0 g/dL Magnesium Level 2.00 1.80-2.40 mg/dL Triglycerides Level 208 H 30-200 mg/dL Cholesterol Level 94 <200 mg/dL LDL Cholesterol 47 0-99 mg/dL HDL Cholesterol 19 L 35-85 mg/dL Test 07/28/24 16:35 Range/Units Blood Gas Specimen Type Arterial Arterial Blood pH 7.432 7.350-7.450 Arterial Blood Partial Pressure CO2 35 32-45 mmHg Arterial Blood Partial Pressure O2 82.2 L 83.0-108.0 mmHg Arterial Blood HCO3 22.6 21.0-28.0 mmol/L Arterial Blood Oxygen Saturation 95.6 94.0-98.0 % Arterial Blood Base Excess -1.2 -2.0-3.0 mmol/L Hemoglobin (Blood Gas) 11.3 L 12.0-16.0 g/dL Sodium (Blood Gas) 138 136-145 MMOL/L Bedside Potassium (Blood Gas) 4.1 3.4-4.5 MMOL/L Bedside Chloride (Blood Gas) 109 H 98-107 MMOL/L Bedside Glucose (Blood Gas) 279 H 65-95 MG/DL Bedside Ionized Calcium (Blood Gas) 1.15 1.15-1.33 MMOL/L Bedside Lactic Acid (Blood Gas) 1.31 H 0.36-0.75 MMOL/L Blood Gas Temperature 37.0 35.5-37.0 CELSIUS Blood Gas Respiration Rate 12.0 min. Blood Gas Vent Mode AC ROOM AIR FiO2 30.0 % Blood Gas Tidal Volume 400 ml Blood Gas PEEP 5 cm H2O Blood Gas Specimen Comment GENNA NUÑEZ RN DIAGNOSTICS / RADIOLOGY: PATIENT: AMADA ROBLEDO ACCT: [id number] LOC: [facility] U: [id number] AGE/SX: 59/F ROOM: [facility] RE07/25/[address]: MARAH OAKES MD : 1965 BED: 1 DIS: STATUS: ADM IN TLOC: SPEC: [id number] HERMELINDA: 07/26/24-1155 STATUS: COMP REQ: [id number] RECD: 07/26/24-[address]: FERNANDO CONTRERAS MD SOURCE: ABDOMEN ENTR: 07/26/24-[address]: MILLIE CHATTERJEE [facility] MARAH OAKES MD,KERLINE JAVIER,MARYCRUZ PEACOCK,SOURAV Tamayo MD ORDERED: PENG CULTURE, AEROBIC CULTURE ANAEROBIC CULTURE Final COLONY DESCRIPTION: REPORT 1: NO ANAEROBES AT 16-23 HOURS; STUDIES TO CONTINUE REPORT 2: NO ANAEROBES AT 36-47 HOURS; STUDIES TO CONTINUE REPORT 3: 1+ GRAM NEGATIVE RODS POSSIBLE ANAEROBE ISOLATED IDENTIFICATION TO FOLLOW BETA LACTAMASE NEGATIVE 1+ GRAM NEGATIVE RODS . POSSIBLE ANAEROBE ISOLATED . IDENTIFICATION TO FOLLOW BETA LACTAMASE POSITIVE RUN DATE: 07/29/24 [facility] PAGE 2 RUN TIME: [id number] [address], [place] [address] Department of Laboratories CLIA # [id number] Property Field Adjuster: Maureen Salgado DO Specimen Report SPEC: [id number] PATIENT: AMADA ROBLEDO [id number] (Continued) Procedure Result [place] Date-Time --- --------- CONTINUED ON NEXT PAGE RUN DATE: 07/29/24 [facility] PAGE 3 RUN TIME: [id number] [address], [place] [address] Department of [employer] CLIA # [id number] Property Field Adjuster: Maureen Salgado DO Specimen Report SPEC: [id number] PATIENT: AMADA ROBLEDO [id number] (Continued) --- --------- Procedure Result [place] Date-Time ANAEROBIC CULTURE Final (continued) 07/29/24-6261 NO FURTHER WORK-UP DONE BACTEROIDES EGGERTHII CAPNOCYTOPHAGA SPECIES Test(s) performed by: [facility] [address] [place] [address] AEROBIC CULTURE Final 07/29/24-1023 MRL COLONY DESCRIPTION: REPORT 1: 2+ GRAM NEGATIVE RODS IDENTIFICATION AND SENSITIVITY TO FOLLOW REPORT 2: STUDIES TO CONTINUE REPORT 3: 1+ GRAM POSITIVE COCCI IN CHAINS . IDENTIFICATION AND SENSITIVITY TO FOLLOW ENTEROCOCCUS RAFFINOSUS KLEBSIELLA PNEUMONIAE ENT RAFFIN K PNEUMO M.I.C. RX M.I.C. RX --------- ---- --------- ---- AMPICILLIN <=2 S AZTREONAM <=4 S CEFAZOLIN <=2 S CEFTAZIDIME/AVIBACTAM <=8 S GENTAMICIN <=2 S LEVOFLOXACIN <=0.5 S VANCOMYCIN <=0.5 S AMPICILLIN/SULBACTAM <=8/4 S GENTAMICIN Synergy Screen <=500 S MEROPENEM <=1 S PENICILLIN 2 S PIPERACILLIN/TAZOBACTAM <=8 S TRIMETHOPRIM/SUFLAMETHOXAZOLE <=2/38 S ASSESSMENT: Intestinal perforation, status post exploratory laparotomy and bowel resection. Intra-abdominal abscess with polymicrobial infection, status post open drainage. Peritonitis. Respiratory failure, status post intubation. Leukocytosis. Anemia. History of colitis. PLAN: Continue Meropenem. Continue fluconazole. Continue GI prophylaxis. Continue critical care support. Continue ventilatory support. We will follow up on the final abdominal abscess culture results. Plan is to extubate patient today. This case was reviewed and discussed with my supervising physician and the above assessment and plan was formulated and agreed upon. ATTESTATION BY PHYSICIAN I have seen and examined the patient. I reviewed the documentation, medical decision making, and treatment plan as noted by the mid-level provider above. I agree with the findings and plan of care. MILLIE CHATTERJEE MD, MIRTA L DIRECTOR EXECUTIVE COMMUNICATIONS July 30, 2024 10:22
--- NOTE | 2024-07-30 10:59 | PN ---
[facility] PROGRESS NOTE Date of Service: July 30, 2024 Time of Service: 10:38 SUBJECTIVE: 59-year-old female the past medical history of hypertension who presented to the hospital secondary to abdominal pain. Patient stated for the past 3-4 days she has been having increasing abdominal pain with abdominal distention. She was feeling nauseated and had episodes of emesis at home. She denied any hematemesis, melena, hematochezia. Patient was previously hospitalized in [facility] around one month ago secondary to colitis. GI was consulted during admission and patient underwent colonoscopy with findings showing severe inflammation of the entire colon concerning for pancolitis. She was treated with IV steroids and and was to start patient on Remicade as outpatient. She denied any fever, chills, diarrhea. She was going to follow up with GI as outpatient on 07/26/24 but had worsening pain which caused her to come to the hospital for further evaluation. Labs in the ED were notable for white count of 10.3, hemoglobin was 12.8, platelet count was 363 K, sodium was 138, potassium was 2.8, creatinine is 1.0, blood glucose was 269, lactic acid on presentation was 8.[address] abdomen pelvis which showed free intraperitoneal air concerning for bowel perforation. There is a anterior ventral wall hernia with bowel content and air collection and fat stranding concerning for bowel perforation. Her colon was also noted to be inflamed. CT was performed without contrast. 07/26 BP 135/83, tachycardic 102, saturating 100% 2 L nasal cannula. CBC shows hemoglobin 11.0, hematocrit 35.9, WBC 18.8, platelet count of 203. Sodium 141, potassium 3.7, BUN of 29, creatinine slightly worse today at 1.2. ABG with pH 7.51, pCO2 of 28, PO2 62.6, bicarb of 22.5. Serology to include influenza, SARS and group A negative. Results of chest x-ray pending. Patient is scheduled to be taken to the OR today. 07/27 the patient remains admitted to the intensive care unit, intubated, on mechanical ventilation, status post exploratory laparotomy, postoperative day one, case discussed with the RN, patient on propofol, Jose Armando-Synephrine, wound VAC to the abdomen in place, noted to have right IJ line in place. Getting broad- spectrum IV antibiotics. Blood pressure 130/79, heart rate of 83, saturating 100% on mechanical ventilation, FiO2 40%. Leukocytosis is worse today at 28.1, drop in hemoglobin to 9.7, hematocrit 30.8, with a platelet count of 148. Potassium level 3.6, magnesium 1.6. Lactic acid from 8.2 down to 1.8 ABG with pH 7.4, pCO2 34, PO2 145, bicarb of 20. Chest x-ray shows bilateral lower lung infiltrates. Family at Bedside, updated 07/28 the patient has been seen and examined in the intensive care unit, she remains intubated, mechanical ventilation, on fentanyl, propofol and Jose Armando- Synephrine, getting broad-spectrum antibiotics, BP 112/84, afebrile, saturating 100% on mechanical ventilation, FiO2 40%. CBC with a hemoglobin 8.4, hematocrit 27.8, WBC of 16.3, platelet count of 89. Patient is status post exploratory laparotomy with drainage of intra-abdominal abscess/ventral hernia repair/small- bowel resection/NS of adhesions/left open and wound VAC on 07/23 05/28 by General surgery. Results of septic workup reviewed, Gram-negative rods. Patient with a possible ischemic colitis, plan to take the patient back to the operating room for further exploration. 07/29 Pt seen at bedside, no acute events overnight. She is s/p ex-lap with cholecystectomy. Currently on pressors, will wean as able. Remains intubated, PEEP 5, FiO2 30%, will continue with daily sedation vacations. She is mildly tachycardic. She is NPO, continue TPN per general surgery. WBC increased from 16.3 up to 16.8, Hgb improved from 8.4 up to 8.6, platelets decreased from 89 d own to 76 07/30 Pt seen at bedside, no acute events overnight. She is s/p ex-lap with small bowel resection, appendectomy and drainage of intraabdominal abscess with wound vac post op day 4, repeat ex-lap with cholecystectomy, repair of left flank and ventral hernias post op day 2. Currently on pressors, will wean as able. Remains intubated, PEEP 5, FiO2 30%, she was on sedation vacation, in no acute distress, possible extubation today, will defer to critical care. She is NPO, continue TPN per general surgery. WBC improved from 16.8 down to 10.6, Hgb stable at 8.3, similar to yesterday, platelets improved from 76 up to 90, sabra kirt of her labs are relatively unremarkable. REVIEW OF SYSTEMS 12 point ROS negative unless noted in HPI PHYSICAL EXAM GENERAL APPEARANCE: Patient intubated, on mechanical ventilation. NEUROLOGICAL: Cranial nerves II-XII grossly intact. Motor is 5/5 in bilateral upper and lower extremities proximal to distal. No sensory deficits. HEENT: Face is symmetric. Pupils are equal and reactive. Extraocular movements are intact. NECK: Supple. No JVD. No thyromegaly. No submental, submandibular, pre- /postauricular, occipital or supraclavicular lymphadenopathy. CHEST: Normal chest expansion. No Telemetry. LUNGS: Absence of any rales, rhonchi or any wheezing. CARDIOVASCULAR: Regular. S1 and S2 normal. No appreciable rubs, murmurs or ga llops. ABDOMEN: Abdominal wound VAC in place : Deferred. No Troy. EXTREMITIES: Non-edematous and not cyanotic. No clubbing. Good capillary refill. SKIN: No skin breakdown. Vital Signs (last 8hr) Date Time Temp Pulse Resp B/P (MAP) Pulse Ox O2 Delivery O2 Flow Rate FiO2 07/30/24 09:45 97 16 100/66 (77) 99 102/75 (84) 07/30/24 09:30 98 21 117/80 (92) 99 07/30/24 09:15 103 19 120/74 (89) 100 07/30/24 09:00 106 16 129/78 (95) 99 07/30/24 08:45 100 15 125/74 (91) 99 114/75 (88) 07/30/24 08:30 104 16 123/71 (88) 98 07/30/24 08:15 87 16 117/68 (84) 97 07/30/24 08:00 76 17 105/60 (75) 99 07/30/24 08:00 99.7 07/30/24 07:58 30 07/30/24 07:45 91 13 118/69 (85) 96 102/69 (80) 07/30/24 07:30 94 18 123/71 (88) 95 30 07/30/24 07:15 102 17 148/84 (105) 99 07/30/24 07:00 77 12 127/71 (89) 99 07/30/24 06:45 82 15 144/82 (102) 97 07/30/24 06:44 81 17 142/81 (101) 99 129/77 (94) 07/30/24 06:30 79 12 133/76 (95) 98 07/30/24 06:22 78 30 07/30/24 06:15 73 15 135/76 (95) 99 07/30/24 06:00 81 14 130/75 (93) 98 07/30/24 05:45 77 14 128/74 (92) 99 07/30/24 05:44 78 13 128/73 (91) 98 116/72 (87) 07/30/24 05:30 78 14 125/71 (89) 97 07/30/24 05:15 77 18 119/68 (85) 97 07/30/24 05:00 90 13 124/71 (88) 99 07/30/24 04:45 78 17 132/75 (94) 100 122/74 (90) 07/30/24 04:41 135/87 07/30/24 04:30 74 13 127/72 (90) 99 07/30/24 04:15 77 12 147/80 (102) 99 07/30/24 04:00 100 Ventilator+ 30 07/30/24 04:00 97.9 07/30/24 04:00 79 12 135/72 (93) 99 07/30/24 03:58 30 07/30/24 03:45 73 12 151/78 (102) 99 135/87 (103) 07/30/24 03:30 74 13 147/76 (99) 99 07/30/24 03:23 69 30 07/30/24 03:15 73 12 141/74 (96) 99 07/30/24 03:00 74 13 146/76 (99) 99 07/30/24 02:45 74 15 135/72 (93) 99 126/77 (93) LABS: Laboratory: Test 07/30/24 05:42 07/30/24 04:27 07/29/24 18:16 07/29/24 05:10 Range/Units Whole Blood Glucose 174 H 70-110 MG/DL White Blood Count 10.6 # 4.8-10.8 K/uL Red Blood Count 3.14 L 4.00-5.50 MIL/uL Hemoglobin 8.3 L 12.0-16.0 g/dL Hematocrit 27.4 L 36-48 % Mean Corpuscular Volume 87.3 79-99 fL Mean Corpuscular Hemoglobin 26.4 L 27.0-33.0 pg Mean Corpuscular Hemoglobin Concent 30.3 L 32.0-36.0 g/dL Red Cell Distribution Width 18.3 H 11.0-15.5 % Platelet Count 90 L 130-400 K/uL Mean Platelet Volume 11.8 H 7.5-10.5 fL Immature Granulocyte % (Auto) 5.3 H 0-1 % Neutrophils (%) (Auto) 70.7 40.0-77.0 % Lymphocytes (%) (Auto) 17.8 L 21.0-51.0 % Monocytes (%) (Auto) 5.4 3.0-13.0 % Eosinophils (%) (Auto) 0.3 0.0-8.0 % Basophils (%) (Auto) 0.5 0.0-5.0 % Neutrophils # (Auto) 7.5 1.8-7.7 K/uL Lymphocytes # (Auto) 1.9 1.0-4.8 K/uL Monocytes # (Auto) 0.6 0.1-1.0 K/uL Eosinophils # (Auto) 0.03 0.00-0.70 K/uL Basophils # (Auto) 0.05 0.00-0.20 K/uL Absolute Immature Granulocyte (auto 0.56 0-1 K/uL Nucleated Red Blood Cells 0.0 0.0-0.19 % Sodium Level 143 136-145 mmol/L Potassium Level 3.8 3.5-5.1 mmol/L Chloride Level 108 101-111 mmol/L Carbon Dioxide Level 29 21-32 mmol/L Blood Urea Nitrogen 25 H 7-18 mg/dL Creatinine 0.5 0.5-1.0 mg/dL Glomerular Filtration Rate Calc 107 >90 mL/min Random Glucose 183 H 70-105 mg/dL Lactic Acid Level 1.0 0.8-2.5 mmol/L Total Calcium 7.5 L 8.5-10.1 mg/dL Phosphorus Level 2.1 L 2.5-4.9 mg/dL Total Bilirubin 0.4 0.2-1.0 mg/dL Aspartate Amino Transf (AST/SGOT) 24 10-37 U/L Alanine Aminotransferase (ALT/SGPT) 18 12-78 U/L Alkaline Phosphatase 280 #H 50-136 U/L Total Protein 4.4 L 6.0-8.3 g/dL Albumin 1.3 L 3.5-5.0 g/dL Magnesium Level 2.00 1.80-2.40 mg/dL Triglycerides Level 208 H 30-200 mg/dL Cholesterol Level 94 <200 mg/dL LDL Cholesterol 47 0-99 mg/dL HDL Cholesterol 19 L 35-85 mg/dL Test 07/28/24 16:35 Range/Units Blood Gas Specimen Type Arterial Arterial Blood pH 7.432 7.350-7.450 Arterial Blood Partial Pressure CO2 35 32-45 mmHg Arterial Blood Partial Pressure O2 82.2 L 83.0-108.0 mmHg Arterial Blood HCO3 22.6 21.0-28.0 mmol/L Arterial Blood Oxygen Saturation 95.6 94.0-98.0 % Arterial Blood Base Excess -1.2 -2.0-3.0 mmol/L Hemoglobin (Blood Gas) 11.3 L 12.0-16.0 g/dL Sodium (Blood Gas) 138 136-145 MMOL/L Bedside Potassium (Blood Gas) 4.1 3.4-4.5 MMOL/L Bedside Chloride (Blood Gas) 109 H 98-107 MMOL/L Bedside Glucose (Blood Gas) 279 H 65-95 MG/DL Bedside Ionized Calcium (Blood Gas) 1.15 1.15-1.33 MMOL/L Bedside Lactic Acid (Blood Gas) 1.31 H 0.36-0.75 MMOL/L Blood Gas Temperature 37.0 35.5-37.0 CELSIUS Blood Gas Respiration Rate 12.0 min. Blood Gas Vent Mode AC ROOM AIR FiO2 30.0 % Blood Gas Tidal Volume 400 ml Blood Gas PEEP 5 cm H2O Blood Gas Specimen Comment RR SAVANNAH, RN Current Medications Medications (Trade) Dose Ordered Sig/Alexandra Route PRN Reason Start Time Stop Time Status Last Admin Dose Admin Albumin Human 100 ml @ 50 mls/hr AD IV 07/28/24 08:00 07/31/24 07:59 Cefepime HCl (MAXipime 2 gm vial) 2 gm Q24H IVPB 07/26/24 22:00 07/27/24 14:55 DC 07/26/24 22:54 2 GM Dexmedetomidine/ Sodium Chloride (PRECEdex 400MCG/ 100ML-NS) 400 mcg PROTOCOL PRN IV agitation 07/29/24 14:00 08/28/24 13:59 07/30/24 01:18 400 MCG Dextrose (D50w) 50 ml AD PRN IV HYPOGLYCEMIA PROTOCOL 07/27/24 16:00 08/26/24 15:59 Famotidine (Pepcid 20mg Vial) 20 mg Q24H IV 07/25/24 21:00 08/24/24 20:59 07/29/24 20:48 20 MG Fat Emulsion Intravenous 250 ml @ 42 mls/hr QMOFR IV 07/29/24 09:00 08/28/24 08:59 07/29/24 08:23 42 MLS/HR Fentanyl Citrate 100 ml @ 0 mls/hr PROTOCOL IV 07/26/24 13:30 07/27/24 12:04 DC Fentanyl Citrate 100 ml @ 0 mls/hr PROTOCOL IV 07/27/24 12:30 07/29/24 13:42 DC 07/29/24 02:03 5 MLS/HR Fentanyl/Sodium Chloride 250 ml @ 0.1 mls/hr PROTOCOL IV 07/27/24 12:00 07/27/24 12:05 DC Fluconazole/ Sodium Chloride 100 ml @ 100 mls/hr Q24H IV 07/26/24 13:30 08/25/24 13:29 07/29/24 14:00 100 MLS/HR Furosemide (LASix 20MG VIAL) 20 mg Q8H IV 07/28/24 15:30 08/27/24 15:29 07/30/24 08:26 20 MG Glucagon (Glucagon 1mg Kit) 1 mg AD PRN IM HYPOGLYCEMIA PROTOCOL 07/27/24 16:00 08/26/24 15:59 Hydromorphone HCl (DiLAUDid 0.5MG INJ) 0.5 mg Q4H PRN IVP SEVERE PAIN (7-10) 07/29/24 14:00 08/03/24 13:59 07/29/24 17:50 0.5 MG Insulin Glargine (LANtus 100 UNITS/ML 10 ML VIAL) 5 units HS SQ 07/27/24 21:00 07/29/24 09:47 DC 07/28/24 20:48 5 UNITS Insulin Glargine (LANtus 100 UNITS/ML 10 ML VIAL) 15 units BID SQ 07/29/24 21:00 08/28/24 20:59 07/30/24 08:31 15 UNITS Insulin Glargine (LANtus 100 UNITS/ML 10 ML VIAL) 15 units HS SQ 07/29/24 21:00 07/29/24 13:43 DC Insulin Human Regular (humuLIN R 100 UNIT/ML 3ML) INSULIN SLIDING SCAL... Q6H6 SQ 07/26/24 00:00 08/25/24 00:00 07/29/24 23:58 2 UNIT Magnesium Sulfate 50 ml @ 0 mls/hr PROTOCOL PRN IV hypomagnesemia 07/25/24 18:00 08/24/24 17:59 07/29/24 06:33 25 MLS/HR Meropenem (Merrem 1gm) 1 gm Q12H IVPB 07/27/24 15:30 08/03/24 03:31 07/30/24 03:18 1 GM Midazolam HCl 50 ml @ 0 mls/hr PROTOCOL IV 07/26/24 13:30 07/29/24 13:42 DC Ondansetron HCl (zoFRAN 4MG INJ) 4 mg Q6H PRN IVP NAUSEA/VOMITING 07/25/24 18:00 08/24/24 17:59 Pharmacy Profile Note (Lace Assessment) 1 each AD MISC 07/27/24 15:30 07/27/24 15:14 DC Pharmacy Profile Note (Pharmacy Communication) 1 each ONCE MISC 07/27/24 15:00 07/28/24 07:29 DC Phenylephrine HCl 100 mg/Sodium Chloride 250 ml @ 0 mls/hr AD PRN IV TITRATE 07/26/24 13:30 08/25/24 13:29 07/30/24 04:41 9.52 MLS/HR Piperacillin Sod/ Tazobactam Sod (Zosyn 3.375gm+NS 50ml) 3.375 gm Q12H IV 07/25/24 20:00 07/25/24 17:27 DC Piperacillin Sod/ Tazobactam Sod (Zosyn 3.375gm+NS 50ml) 3.375 gm Q8H IVPB 07/25/24 19:00 07/26/24 21:40 DC 07/26/24 19:40 3.375 GM Piperacillin Sod/ Tazobactam Sod (Zosyn 3.375gm+NS 50ml) 3.375 gm Q8H IVPB 07/25/24 20:00 07/25/24 18:49 DC Potassium Chloride 100 ml @ 50 mls/hr AD PRN IV POTASSIUM PROTOCOL 07/25/24 18:00 08/24/24 17:59 07/30/24 08:38 50 MLS/HR Propofol 100 ml @ 0 mls/hr AD PRN IV TITRATE 07/26/24 13:30 07/29/24 13:42 DC 07/29/24 02:49 12.2 MLS/HR Sodium Chloride 1,000 ml @ 125 mls/hr Q8H IV 07/25/24 17:30 07/27/24 16:01 DC 07/27/24 07:58 125 MLS/HR Sodium Chloride (NS 50ml) 50 ml AD IV 07/25/24 17:00 07/25/24 17:29 DC Vancomycin HCl 250 ml @ 125 mls/hr Q24H IV 07/26/24 17:00 07/27/24 15:09 DC 07/26/24 19:55 125 MLS/HR Vancomycin HCl (Vancomycin Protocol) 1 each AD IV 07/25/24 17:00 07/27/24 14:55 DC DIAGNOSTICS / RADIOLOGY: [ ] ASSESSMENT: Septic shock requiring pressors Bacterial peritonitis POA Bowel perforation w/ [id number] S/P exploratory laparotomy with drainage of intra-abdominal abscess/ventral hernia repair/small-bowel resection/NS of adhesions/left open and a wound VAC on 07/26/24 per High risk for ischemic bowel-POA Intractable abdominal pain-POA Acute hypokalemia-POA this is Dehydration-POA SHARMILA not POA Lactic acidosis-POA Hyperglycemia 2/2 uncontrolled diabetes mellitus Primary HTN HX of colitis HX of inflammatory bowel disease (Crohn's Disease) HX of cardiac arrest HX of BLE cellulitis Recent hospitalization for UTI with outpatient Zosyn antibiotic with Dr. Diaz PLAN: The patient remains admitted to the intensive care unit Remains intubated, on mechanical ventilation Continue the patient on fentanyl and propofol Continue the patient on Jose Armando-Synephrine, wean as tolerated Continue with the abdominal wound VAC in place Critical Care consulted, follow input and recommendation Continue to follow surgical input and recommendation. Patient high risk for ischemic bowel, scheduled to OR today by General surgery. Continue the patient on broad-spectrum IV antibiotics, follow ID input and recommendation. Prognosis is guarded Disposition: Pending improvement in clinical condition FRANSICO HOWELL MD July 30, 2024 10:59
[2024-07-30 14:17] LABS: ABG BASE EXCESS 5.2 mmol/L (-2.0-3.0); ABG HCO3 27.7 mmol/L (21.0-28.0); ABG OXYGEN SATURATION 98.3 % (94.0-98.0); ABG PCO2 34 mmHg (32-45); ABG PH 7.524 (7.350-7.450); DEVICE COMMENT RN EDDIE; PO2, ARTERIAL BG 104.9 mmHg (83.0-108.0); VENT MODE, BG CPAP 5,10 (ROOM AIR)
--- NOTE | 2024-07-30 14:42 | NUR ---
Extubated at this time and placed on aerosol mask 40%
--- NOTE | 2024-07-30 14:53 | PN ---
INFECTIOUS DISEASE PROGRESS NOTE Date of Service: July 30, 2024 SUBJECTIVE: Patient was seen and examined at bedside in room 207. Patient remains intubated with FiO2 of 30%. Patient is status post closure of exploratory laparotomy, repair of incarcerated ventral hernia repair and open cholecystectomy. There was a drop on the hemoglobin to 8.3. The abdominal abscess culture results with polymicrobial infection, Bacteroides Eggerthii, Capnocytophaga-species, Enterococcus Raffinosus and Klebsiella pneumoniae. We will start patient on vancomycin per pharmacy protocol and continue on Meropenem and fluconazole. PHYSICAL EXAM EYES: Anicteric. Pupils equal and reactive. HENT: No oral thrush seen, moist Oral mucosa NECK: Supple, no JVD or thyromegaly. LUNGS: Good air entry. No rales, no rhonchi. Intubated. CARDIOVASCULAR: S1, S2 regular. No murmur heard. ABDOMEN: Soft, non tender, bowel sounds present, no organomegaly. Abdominal surgical incision with BYRON drains CENTRAL NERVOUS SYSTEM: Intubated. SKIN: No rashes, no swelling. LYMPHATICS: No peripheral lymphadenopathy. MUSCULOSKELETAL: No joint swelling, erythema or tenderness. EXTREMITIES: No cyanosis or clubbing. BACK: No deformity, no pressure ulcer. GENITOURINARY: No dysuria or hematuria. Troy catheter. Vital Sign (Last 12 Hours) 07/30/24 07/30/24 07/30/24 07/30/24 03:00 03:15 03:23 03:30 Pulse 74 73 69 74 Resp 13 12 13 B/P (MAP) 146/76 (99) 141/74 (96) 147/76 (99) Pulse Ox 99 99 99 FiO2 30 07/30/24 07/30/24 07/30/24 07/30/24 03:45 03:58 04:00 04:00 Temp 97.9 Pulse 73 79 Resp 12 12 B/P (MAP) 151/78 (102) 135/72 (93) 135/87 (103) Pulse Ox 99 99 FiO2 30 07/30/24 07/30/24 07/30/24 07/30/24 04:00 04:15 04:30 04:41 Pulse 77 74 Resp 12 13 B/P (MAP) 147/80 (102) 127/72 (90) 135/87 Pulse Ox 100 99 99 O2 Delivery Ventilator+ FiO2 30 07/30/24 07/30/24 07/30/24 07/30/24 04:45 05:00 05:15 05:30 Pulse 78 90 77 78 Resp 17 13 18 14 B/P (MAP) 132/75 (94) 124/71 (88) 119/68 (85) 125/71 (89) 122/74 (90) Pulse Ox 100 99 97 97 07/30/24 07/30/24 07/30/24 07/30/24 05:44 05:45 06:00 06:15 Pulse 78 77 81 73 Resp 13 14 14 15 B/P (MAP) 128/73 (91) 128/74 (92) 130/75 (93) 135/76 (95) 116/72 (87) Pulse Ox 98 99 98 99 07/30/24 07/30/24 07/30/24 07/30/24 06:22 06:30 06:44 06:45 Pulse 78 79 81 82 Resp 12 17 15 B/P (MAP) 133/76 (95) 142/81 (101) 144/82 (102) 129/77 (94) Pulse Ox 98 99 97 FiO2 30 07/30/24 07/30/24 07/30/24 07/30/24 07:00 07:15 07:30 07:45 Pulse 77 102 94 91 Resp 12 17 18 13 B/P (MAP) 127/71 (89) 148/84 (105) 123/71 (88) 118/69 (85) 102/69 (80) Pulse Ox 99 99 95 96 FiO2 30 07/30/24 07/30/24 07/30/24 07/30/24 07:58 08:00 08:00 08:00 Temp 99.7 Pulse 76 Resp 17 B/P (MAP) 105/60 (75) Pulse Ox 100 99 O2 Delivery Ventilator+ FiO2 30 30 07/30/24 07/30/24 07/30/24 07/30/24 08:15 08:30 08:45 09:00 Pulse 87 104 100 106 Resp 16 16 15 16 B/P (MAP) 117/68 (84) 123/71 (88) 125/74 (91) 129/78 (95) 114/75 (88) Pulse Ox 97 98 99 99 5/27/25 5/27/25 5/27/25 5/27/25 09:15 09:30 09:35 09:45 Pulse 103 98 104 97 Resp 19 21 16 B/P (MAP) 120/74 (89) 117/80 (92) 100/66 (77) 102/75 (84) Pulse Ox 100 99 99 FiO2 30 07/30/24 07/30/24 07/30/24 07/30/24 10:00 10:15 10:30 10:45 Pulse 100 96 102 96 Resp 16 15 15 16 B/P (MAP) 94/61 (72) 97/63 (74) 116/74 (88) 111/72 (85) 104/76 (85) Pulse Ox 99 98 99 99 07/30/24 07/30/24 07/30/24 07/30/24 11:00 11:15 11:30 11:42 Pulse 97 102 103 103 Resp 14 18 16 B/P (MAP) 110/70 (83) 120/76 (91) 118/75 (89) Pulse Ox 98 99 100 FiO2 30 07/30/24 07/30/24 07/30/24 07/30/24 11:45 11:58 12:00 12:00 Temp 98.6 Pulse 104 103 Resp 15 15 B/P (MAP) 127/79 (95) 127/79 (95) 117/87 (97) 117/87 (97) Pulse Ox 100 100 O2 Delivery Ventilator FiO2 30 30 40 07/30/24 07/30/24 07/30/24 07/30/24 12:00 12:15 12:30 12:45 Pulse 104 107 105 Resp 17 19 19 B/P (MAP) 113/72 (86) 123/77 (92) 131/83 (99) 122/78 (93) Pulse Ox 100 100 100 100 O2 Delivery Ventilator+ FiO2 30 07/30/24 07/30/24 07/30/24 07/30/24 13:00 13:15 13:30 13:44 Pulse 103 104 92 98 Resp 18 21 26 14 B/P (MAP) 121/73 (89) 150/87 (108) 119/70 (86) 128/80 (96) 119/79 (92) Pulse Ox 100 100 93 100 07/30/24 07/30/24 14:00 14:15 Pulse 100 101 Resp 19 11 B/P (MAP) 138/85 (102) 121/75 (90) Pulse Ox 99 99 Intake & Output (last 24hrs) 07/29/24 07/29/24 07/30/24 15:00 23:00 07:00 Intake Total 1100.2 ml 714.3 ml 937.4 ml Output Total 1640 ml 400 ml 130 ml Balance -539.8 ml 314.3 ml 807.4 ml LABS: Laboratory: Test 07/30/24 14:16 07/30/24 12:19 07/30/24 04:27 07/29/24 18:16 Range/Units Blood Gas Specimen Type Arterial Arterial Blood pH 7.524 H 7.350-7.450 Arterial Blood Partial Pressure CO2 34 32-45 mmHg Arterial Blood Partial Pressure O2 104.9 83.0-108.0 mmHg Arterial Blood HCO3 27.7 21.0-28.0 mmol/L Arterial Blood Oxygen Saturation 98.3 H 94.0-98.0 % Arterial Blood Base Excess 5.2 H -2.0-3.0 mmol/L Blood Gas Temperature 37.0 35.5-37.0 CELSIUS Blood Gas Vent Mode CPAP 5,10 ROOM AIR FiO2 30.0 % Blood Gas PEEP 5 cm H2O Blood Gas Specimen Comment RN MILIND Whole Blood Glucose 257 H 70-110 MG/DL White Blood Count 10.6 # 4.8-10.8 K/uL Red Blood Count 3.14 L 4.00-5.50 MIL/uL Hemoglobin 8.3 L 12.0-16.0 g/dL Hematocrit 27.4 L 36-48 % Mean Corpuscular Volume 87.3 79-99 fL Mean Corpuscular Hemoglobin 26.4 L 27.0-33.0 pg Mean Corpuscular Hemoglobin Concent 30.3 L 32.0-36.0 g/dL Red Cell Distribution Width 18.3 H 11.0-15.5 % Platelet Count 90 L 130-400 K/uL Mean Platelet Volume 11.8 H 7.5-10.5 fL Immature Granulocyte % (Auto) 5.3 H 0-1 % Neutrophils (%) (Auto) 70.7 40.0-77.0 % Lymphocytes (%) (Auto) 17.8 L 21.0-51.0 % Monocytes (%) (Auto) 5.4 3.0-13.0 % Eosinophils (%) (Auto) 0.3 0.0-8.0 % Basophils (%) (Auto) 0.5 0.0-5.0 % Neutrophils # (Auto) 7.5 1.8-7.7 K/uL Lymphocytes # (Auto) 1.9 1.0-4.8 K/uL Monocytes # (Auto) 0.6 0.1-1.0 K/uL Eosinophils # (Auto) 0.03 0.00-0.70 K/uL Basophils # (Auto) 0.05 0.00-0.20 K/uL Absolute Immature Granulocyte (auto 0.56 0-1 K/uL Nucleated Red Blood Cells 0.0 0.0-0.19 % Sodium Level 143 136-145 mmol/L Potassium Level 3.8 3.5-5.1 mmol/L Chloride Level 108 101-111 mmol/L Carbon Dioxide Level 29 21-32 mmol/L Blood Urea Nitrogen 25 H 7-18 mg/dL Creatinine 0.5 0.5-1.0 mg/dL Glomerular Filtration Rate Calc 107 >90 mL/min Random Glucose 183 H 70-105 mg/dL Lactic Acid Level 1.0 0.8-2.5 mmol/L Total Calcium 7.5 L 8.5-10.1 mg/dL Phosphorus Level 2.1 L 2.5-4.9 mg/dL Total Bilirubin 0.4 0.2-1.0 mg/dL Aspartate Amino Transf (AST/SGOT) 24 10-37 U/L Alanine Aminotransferase (ALT/SGPT) 18 12-78 U/L Alkaline Phosphatase 280 #H 50-136 U/L Total Protein 4.4 L 6.0-8.3 g/dL Albumin 1.3 L 3.5-5.0 g/dL Magnesium Level 2.00 1.80-2.40 mg/dL Test 07/29/24 05:10 07/28/24 16:35 Range/Units Triglycerides Level 208 H 30-200 mg/dL Cholesterol Level 94 <200 mg/dL LDL Cholesterol 47 0-99 mg/dL HDL Cholesterol 19 L 35-85 mg/dL Hemoglobin (Blood Gas) 11.3 L 12.0-16.0 g/dL Sodium (Blood Gas) 138 136-145 MMOL/L Bedside Potassium (Blood Gas) 4.1 3.4-4.5 MMOL/L Bedside Chloride (Blood Gas) 109 H 98-107 MMOL/L Bedside Glucose (Blood Gas) 279 H 65-95 MG/DL Bedside Ionized Calcium (Blood Gas) 1.15 1.15-1.33 MMOL/L Bedside Lactic Acid (Blood Gas) 1.31 H 0.36-0.75 MMOL/L Blood Gas Respiration Rate 12.0 min. Blood Gas Tidal Volume 400 ml ASSESSMENT: Intestinal perforation, status post exploratory laparotomy and bowel resection. Intra-abdominal abscess with polymicrobial infection, status post open drainage. Peritonitis. Respiratory failure, status post intubation. Leukocytosis. Anemia. History of colitis. PLAN: Start vancomycin per pharmacy protocol. Continue Meropenem. Continue fluconazole. Continue GI prophylaxis. Continue critical care support. Continue ventilatory support. We will monitor electrolytes. This case was reviewed and discussed with my supervising physician and the above assessment and plan was formulated and agreed upon. ATTESTATION BY PHYSICIAN I have seen and examined the patient. I reviewed the documentation, medical decision making, and treatment plan as noted by the mid-level provider above. I agree with the findings and plan of care. MILLIE CHATTERJEE MD, [facility] July 30, 2024 14:53
[2024-07-30] MEDS ORDERED: VANCOMYCIN PROTOCOL PER PHARMACY IV SCH (15:00)
--- NOTE | 2024-07-30 15:15 | NUR ---
sanchez contreras gave the ok to extubate, positive leak test Addendum: 07/30/24 at 1518 by RT BEN RT Amended: Links added.
[2024-07-30] MEDS: VANCOMYCIN 2GM/500 ML BAG 500 ML IV ONE (15:30)
--- NOTE | 2024-07-30 18:32 | CONS ---
GASTROENTEROLOGY CONSULTATION NOTE Date of Consultation: July 30, 2024 Time of Consultation: 18:31 History of Present Illness: [ ] Review of Systems: CONSTITUTIONAL: No malaise or change in sensation of wellbeing. ENMT: No rhinorrhea, otorrhea, sinus pain, ear ache. CARDIOVASCULAR: No angina, palpitations, orthopnea or paroxysmal dyspnea. RESPIRATORY: No SOB. GASTROINTESTINAL: No abdominal pain, nausea, vomiting, diarrhea, hematemesis, melena or change in the patient's habitual bowel movements consistency/number. GENITOURINARY: No dysuria, hematuria or change in bladder continence. MUSCULOSKELETAL: No new muscle pain or decrease in muscular strength. No new joint swelling, redness or tenderness. SKIN: No new rash. Past Medical History: [ ] Past Surgical History: [ ] Past Social History: [ ] Family History: [ ] Coded Allergies: No Known Allergies (Unverified Allergy, Unknown, 06/11/24) Physical Exam: GEN: Awake, alert, oriented in person, time and place, and in no acute distress. HEENT: No sinus tenderness. Tympanic membranes were not examined. No rhinorrhea. Oral pharyngeal mucosa is pink, moist and within normal limits. Neck is supple with no cervical lymphadenopathy, thyromegaly or JVD. CHEST: Inspection, palpation and percussion of the chest were unremarkable. Lung auscultation revealed normal breath sounds bilaterally. CARDIAC: PMI is within normal limits. Heart sounds are regular. Normal S1, S2. No gallop or murmur. ABD: Soft, non-tender and not distended. No peritoneal signs on palpation. No organomegaly. Normal bowel sounds. EXT: No cyanosis or clubbing. No edema. SKIN: Intact. No rashes. JOINTS: No evidence of synovitis or acute arthritis. NEURO: Alert and oriented to name, place and person. Cranial nerve examination is unremarkable. No focal motor deficits. Normal speech. Gait is normal. Strength is normal. Vital Sign (Last 24 Hours) 07/30/24 07/30/24 07/30/24 07/30/24 12:00 14:44 16:00 18:00 Temp 99.0 Pulse 101 Resp 25 B/P (MAP) 151/82 (105) Pulse Ox 100 O2 Delivery Ventilator+ O2 Flow Rate 10.0 FiO2 40 Intake & Output (last 24hrs) 07/29/24 07/29/2425 15:00 23:00 07:00 Intake Total 1100.2 ml 714.3 ml 937.4 ml Output Total 1640 ml 400 ml 130 ml Balance -539.8 ml 314.3 ml 807.4 ml Laboratory: [ ] Laboratory: Test 07/30/24 17:28 07/30/24 14:16 07/30/24 04:27 07/29/24 18:16 Range/Units Whole Blood Glucose 143 H 70-110 MG/DL Blood Gas Specimen Type Arterial Arterial Blood pH 7.524 H 7.350-7.450 Arterial Blood Partial Pressure CO2 34 32-45 mmHg Arterial Blood Partial Pressure O2 104.9 83.0-108.0 mmHg Arterial Blood HCO3 27.7 21.0-28.0 mmol/L Arterial Blood Oxygen Saturation 98.3 H 94.0-98.0 % Arterial Blood Base Excess 5.2 H -2.0-3.0 mmol/L Blood Gas Temperature 37.0 35.5-37.0 CELSIUS Blood Gas Vent Mode CPAP 5,10 ROOM AIR FiO2 30.0 % Blood Gas PEEP 5 cm H2O Blood Gas Specimen Comment RN MILIND White Blood Count 10.6 # 4.8-10.8 K/uL Red Blood Count 3.14 L 4.00-5.50 MIL/uL Hemoglobin 8.3 L 12.0-16.0 g/dL Hematocrit 27.4 L 36-48 % Mean Corpuscular Volume 87.3 79-99 fL Mean Corpuscular Hemoglobin 26.4 L 27.0-33.0 pg Mean Corpuscular Hemoglobin Concent 30.3 L 32.0-36.0 g/dL Red Cell Distribution Width 18.3 H 11.0-15.5 % Platelet Count 90 L 130-400 K/uL Mean Platelet Volume 11.8 H 7.5-10.5 fL Immature Granulocyte % (Auto) 5.3 H 0-1 % Neutrophils (%) (Auto) 70.7 40.0-77.0 % Lymphocytes (%) (Auto) 17.8 L 21.0-51.0 % Monocytes (%) (Auto) 5.4 3.0-13.0 % Eosinophils (%) (Auto) 0.3 0.0-8.0 % Basophils (%) (Auto) 0.5 0.0-5.0 % Neutrophils # (Auto) 7.5 1.8-7.7 K/uL Lymphocytes # (Auto) 1.9 1.0-4.8 K/uL Monocytes # (Auto) 0.6 0.1-1.0 K/uL Eosinophils # (Auto) 0.03 0.00-0.70 K/uL Basophils # (Auto) 0.05 0.00-0.20 K/uL Absolute Immature Granulocyte (auto 0.56 0-1 K/uL Nucleated Red Blood Cells 0.0 0.0-0.19 % Sodium Level 143 136-145 mmol/L Potassium Level 3.8 3.5-5.1 mmol/L Chloride Level 108 101-111 mmol/L Carbon Dioxide Level 29 21-32 mmol/L Blood Urea Nitrogen 25 H 7-18 mg/dL Creatinine 0.5 0.5-1.0 mg/dL Glomerular Filtration Rate Calc 107 >90 mL/min Random Glucose 183 H 70-105 mg/dL Lactic Acid Level 1.0 0.8-2.5 mmol/L Total Calcium 7.5 L 8.5-10.1 mg/dL Phosphorus Level 2.1 L 2.5-4.9 mg/dL Total Bilirubin 0.4 0.2-1.0 mg/dL Aspartate Amino Transf (AST/SGOT) 24 10-37 U/L Alanine Aminotransferase (ALT/SGPT) 18 12-78 U/L Alkaline Phosphatase 280 #H 50-136 U/L Total Protein 4.4 L 6.0-8.3 g/dL Albumin 1.3 L 3.5-5.0 g/dL Magnesium Level 2.00 1.80-2.40 mg/dL Test 07/29/24 05:10 Range/Units Triglycerides Level 208 H 30-200 mg/dL Cholesterol Level 94 <200 mg/dL LDL Cholesterol 47 0-99 mg/dL HDL Cholesterol 19 L 35-85 mg/dL Current Medications Medications (Trade) Dose Ordered Sig/Alexandra Route PRN Reason Start Time Stop Time Status Last Admin Dose Admin Albumin Human 100 ml @ 50 mls/hr AD IV 07/28/24 08:00 07/31/24 07:59 Cefepime HCl (MAXipime 2 gm vial) 2 gm Q24H IVPB 07/26/24 22:00 07/27/24 14:55 DC 07/26/24 22:54 2 GM Dexmedetomidine/ Sodium Chloride (PRECEdex 400MCG/ 100ML-NS) 400 mcg PROTOCOL PRN IV agitation 07/29/24 14:00 08/28/24 13:59 07/30/24 01:18 400 MCG Dextrose (D50w) 50 ml AD PRN IV HYPOGLYCEMIA PROTOCOL 07/27/24 16:00 08/26/24 15:59 Famotidine (Pepcid 20mg Vial) 20 mg Q24H IV 07/25/24 21:00 08/24/24 20:59 07/29/24 20:48 20 MG Fat Emulsion Intravenous 250 ml @ 42 mls/hr QMOFR IV 07/29/24 09:00 08/28/24 08:59 07/29/24 08:23 42 MLS/HR Fentanyl Citrate 100 ml @ 0 mls/hr PROTOCOL IV 07/26/24 13:30 07/27/24 12:04 DC Fentanyl Citrate 100 ml @ 0 mls/hr PROTOCOL IV 07/27/24 12:30 07/29/24 13:42 DC 07/29/24 02:03 5 MLS/HR Fentanyl/Sodium Chloride 250 ml @ 0.1 mls/hr PROTOCOL IV 07/27/24 12:00 07/27/24 12:05 DC Fluconazole/ Sodium Chloride 100 ml @ 100 mls/hr Q24H IV 07/26/24 13:30 08/25/24 13:29 07/30/24 12:31 100 MLS/HR Furosemide (LASix 20MG VIAL) 20 mg Q8H IV 07/28/24 15:30 08/27/24 15:29 07/30/24 14:38 20 MG Glucagon (Glucagon 1mg Kit) 1 mg AD PRN IM HYPOGLYCEMIA PROTOCOL 07/27/24 16:00 08/26/24 15:59 Hydromorphone HCl (DiLAUDid 0.5MG INJ) 0.5 mg Q4H PRN IVP SEVERE PAIN (7-10) 07/29/24 14:00 08/03/24 13:59 07/29/24 17:50 0.5 MG Insulin Glargine (LANtus 100 UNITS/ML 10 ML VIAL) 5 units HS SQ 07/27/24 21:00 07/29/24 09:47 DC 07/28/24 20:48 5 UNITS Insulin Glargine (LANtus 100 UNITS/ML 10 ML VIAL) 15 units BID SQ 07/29/24 21:00 08/28/24 20:59 07/30/24 08:31 15 UNITS Insulin Glargine (LANtus 100 UNITS/ML 10 ML VIAL) 15 units HS SQ 07/29/24 21:00 07/29/24 13:43 DC Insulin Human Regular (humuLIN R 100 UNIT/ML 3ML) INSULIN SLIDING SCAL... Q6H6 SQ 07/26/24 00:00 08/25/24 00:00 07/30/24 12:34 5 UNIT Ipratropium [place] (AtrovENT UD) 0.5 mg [id number] IH 07/30/24 18:00 08/29/24 17:59 Magnesium Sulfate 50 ml @ 0 mls/hr PROTOCOL PRN IV hypomagnesemia 07/25/24 18:00 08/24/24 17:59 07/29/24 06:33 25 MLS/HR Meropenem (Merrem 1gm) 1 gm Q12H IVPB 07/27/24 15:30 08/03/24 03:31 07/30/24 14:38 1 GM Midazolam HCl 50 ml @ 0 mls/hr PROTOCOL IV 07/26/24 13:30 07/29/24 13:42 DC Ondansetron HCl (zoFRAN 4MG INJ) 4 mg Q6H PRN IVP NAUSEA/VOMITING 07/25/24 18:00 08/24/24 17:59 Pharmacy Profile Note (Lace Assessment) 1 each AD MISC 07/27/24 15:30 07/27/24 15:14 DC Pharmacy Profile Note (Pharmacy Communication) 1 each ONCE MISC 07/27/24 15:00 07/28/24 07:29 DC Phenylephrine HCl 100 mg/Sodium Chloride 250 ml @ 0 mls/hr AD PRN IV TITRATE 07/26/24 13:30 08/25/24 13:29 07/30/24 04:41 9.52 MLS/HR Piperacillin Sod/ Tazobactam Sod (Zosyn 3.375gm+NS 50ml) 3.375 gm Q12H IV 07/25/24 20:00 07/25/24 17:27 DC Piperacillin Sod/ Tazobactam Sod (Zosyn 3.375gm+NS 50ml) 3.375 gm Q8H IVPB 07/25/24 19:00 07/26/24 21:40 DC 07/26/24 19:40 3.375 GM Piperacillin Sod/ Tazobactam Sod (Zosyn 3.375gm+NS 50ml) 3.375 gm Q8H IVPB 07/25/24 20:00 07/25/24 18:49 DC Potassium Chloride 100 ml @ 50 mls/hr AD PRN IV POTASSIUM PROTOCOL 07/25/24 18:00 08/24/24 17:59 07/30/24 08:38 50 MLS/HR Propofol 100 ml @ 0 mls/hr AD PRN IV TITRATE 07/26/24 13:30 07/29/24 13:42 DC 07/29/24 02:49 12.2 MLS/HR Sodium Chloride 1,000 ml @ 125 mls/hr Q8H IV 07/25/24 17:30 07/27/24 16:01 DC 07/27/24 07:58 125 MLS/HR Sodium Chloride (NS 50ml) 50 ml AD IV 07/25/24 17:00 07/25/24 17:29 DC Vancomycin HCl 250 ml @ 125 mls/hr Q12H IV 07/31/24 04:00 08/10/24 03:59 Vancomycin HCl 250 ml @ 125 mls/hr Q24H IV 07/26/24 17:00 07/27/24 15:09 DC 07/26/24 19:55 125 MLS/HR Vancomycin HCl (Vancomycin Protocol) 1 each AD IV 07/25/24 17:00 07/27/24 14:55 DC Vancomycin HCl (Vancomycin Protocol) 1 each AD IV 07/30/24 15:00 08/13/24 14:59 Diagnostics / Radiology: [COPY/PASTE HERE IF NO REPORTS PLEASE DELETE SECTION] Assessment: Abnormal imaging with viscous perforation Plan: Follow surgery recommendations ROSANA JIMENEZ [employer] FIELD TECHNICIAN July 30, 2024 18:32
--- NOTE | 2024-07-30 18:58 | PN ---
GENERAL SURGERY PROGRESS NOTE DATE OF SERVICE: July 30, 2024 TIME OF SERVICE: 18:57 PROBLEM LISTS: [ ] INTERVAL HISTORY: [ ] PHYSICAL EXAMINATION: GENERAL: [Patient is lying comfortably in bed, not in any obvious distress.] HEAD: [Normal with no signs of head trauma.] EYES: [Not pale not jaundiced afebrile to touch.] ENT: [ Normal.] NECK: [Supple,no tenderness,no lymphadenopathy,no masses,no thyromegaly ,no bruits, no JVD.] LUNGS: [Clear breath sounds bilaterally. No wheezes, rales, or rhonchi.] HEART: [Regular rate and rhythm. Normal S1 and S2, without murmurs, rub or gallop.] VASC: [No edema. Peripheral pulses normal and equal in all extremities.] ABD: [Bowel sounds present,soft, RUQ tender, no masses, no organomegaly.] : [Normal, no suprapubic tenderness.] LYMPH: [No lymphadenopathy noted.] EXT: [ Warm soft, non tender.] SKIN: [ No rashes or lesions.] NEURO: [ Awake Alert and oriented x3.] LABORATORY: [ ] Hematology Labs: Test 07/30/24 04:27 Range/Units White Blood Count 10.6 # 4.8-10.8 K/uL Red Blood Count 3.14 L 4.00-5.50 MIL/uL Hemoglobin 8.3 L 12.0-16.0 g/dL Hematocrit 27.4 L 36-48 % Mean Corpuscular Volume 87.3 79-99 fL Mean Corpuscular Hemoglobin 26.4 L 27.0-33.0 pg Mean Corpuscular Hemoglobin Concent 30.3 L 32.0-36.0 g/dL Red Cell Distribution Width 18.3 H 11.0-15.5 % Platelet Count 90 L 130-400 K/uL Mean Platelet Volume 11.8 H 7.5-10.5 fL Immature Granulocyte % (Auto) 5.3 H 0-1 % Neutrophils (%) (Auto) 70.7 40.0-77.0 % Lymphocytes (%) (Auto) 17.8 L 21.0-51.0 % Monocytes (%) (Auto) 5.4 3.0-13.0 % Eosinophils (%) (Auto) 0.3 0.0-8.0 % Basophils (%) (Auto) 0.5 0.0-5.0 % Neutrophils # (Auto) 7.5 1.8-7.7 K/uL Lymphocytes # (Auto) 1.9 1.0-4.8 K/uL Monocytes # (Auto) 0.6 0.1-1.0 K/uL Eosinophils # (Auto) 0.03 0.00-0.70 K/uL Basophils # (Auto) 0.05 0.00-0.20 K/uL Absolute Immature Granulocyte (auto 0.56 0-1 K/uL Nucleated Red Blood Cells 0.0 0.0-0.19 % Chemistry Labs: Test 07/30/24 17:28 07/30/24 04:27 07/29/24 18:16 07/29/24 05:10 Range/Units Whole Blood Glucose 143 H 70-110 MG/DL Sodium Level 143 136-145 mmol/L Potassium Level 3.8 3.5-5.1 mmol/L Chloride Level 108 101-111 mmol/L Carbon Dioxide Level 29 21-32 mmol/L Blood Urea Nitrogen 25 H 7-18 mg/dL Creatinine 0.5 0.5-1.0 mg/dL Glomerular Filtration Rate Calc 107 >90 mL/min Random Glucose 183 H 70-105 mg/dL Lactic Acid Level 1.0 0.8-2.5 mmol/L Total Calcium 7.5 L 8.5-10.1 mg/dL Phosphorus Level 2.1 L 2.5-4.9 mg/dL Total Bilirubin 0.4 0.2-1.0 mg/dL Aspartate Amino Transf (AST/SGOT) 24 10-37 U/L Alanine Aminotransferase (ALT/SGPT) 18 12-78 U/L Alkaline Phosphatase 280 #H 50-136 U/L Total Protein 4.4 L 6.0-8.3 g/dL Albumin 1.3 L 3.5-5.0 g/dL Magnesium Level 2.00 1.80-2.40 mg/dL Triglycerides Level 208 H 30-200 mg/dL Cholesterol Level 94 <200 mg/dL LDL Cholesterol 47 0-99 mg/dL HDL Cholesterol 19 L 35-85 mg/dL DIAGNOSTICS / RADIOLOGY: [Copy/Paste Echos/Imaging Report here] ASSESSMENT: [] PLAN: Extubated FERNANDO CONTRERAS MD July 30, 2024 18:58
[2024-07-30] MEDS: IpraTROPium 0.5 MG/2.5 ML INH IH SCH (19:35)
[2024-07-31] VITALS (51 sets, daily range): BP systolic 92–147; BP diastolic 52–96; PULSE 88–106; RESP 5–26; TEMP 98–100.1; O2SAT 94–100
[2024-07-31] MEDS: VANCOMYCIN 1.5 GM/250 ML BAG 250 ML IV SCH (03:12)
[2024-07-31] MEDS: M.V.I. IV [ADULT] 10 ML in CLINIMIX-E 5%AA /D15%W 2000ML 2,000 ML IV ONE (03:13)
[2024-07-31 04:15] LABS: BASOPHILS # (AUTO) 0.03 K/uL (0.00-0.20); BASOPHILS % (AUTO) 0.3 % (0.0-5.0); EOSINOPHILS # (AUTO) 0.04 K/uL (0.00-0.70); EOSINOPHILS % (AUTO) 0.5 % (0.0-8.0); HEMATOCRIT 23.5 % (36-48); IMMATURE GRANULOCYTE ABSOLUTE 0.47 K/uL (0-1); LYMPHOCYTES # (AUTO) 1.7 K/uL (1.0-4.8); LYMPHOCYTES % (AUTO) 19.6 % (21.0-51.0); MEAN CORPUSCULAR HEMOGLOBIN 26.8 pg (27.0-33.0); MEAN CORPUSCULAR HGB CONC 31.1 g/dL (32.0-36.0); MEAN CORPUSCULAR VOLUME 86.4 fL (79-99); MONOCYTES # (AUTO) 0.4 K/uL (0.1-1.0); MONOCYTES % (AUTO) 4.7 % (3.0-13.0); NEUTROPHILS # (AUTO) 6.1 K/uL (1.8-7.7); NEUTROPHILS % (AUTO) 69.5 % (40.0-77.0); PLATELET COUNT (AUTO) 119 K/uL (130-400); RED BLOOD CELL COUNT(AUTO) 2.72 MIL/uL (4.00-5.50); RED CELL DISTRIBUTION WIDTH 18.4 % (11.0-15.5); WHITE BLOOD COUNT (AUTO) 8.7 K/uL (4.8-10.8)
[2024-07-31 04:44] LABS: PHOSPHORUS 2.3 mg/dL (2.5-4.9)
--- NOTE | 2024-07-31 08:30 | PN ---
GASTROENTEROLOGY PROGRESS NOTE Date of Visit: July 31, 2024 Time of Visit: 08:30 Events / Notes: [ ] Review of Systems: CONSTITUTIONAL: No malaise or change in sensation of wellbeing. ENMT: No rhinorrhea, otorrhea, sinus pain, ear ache. CARDIOVASCULAR: No angina, palpitations, orthopnea or paroxysmal dyspnea. RESPIRATORY: No SOB. GASTROINTESTINAL: No abdominal pain, nausea, vomiting, diarrhea, hematemesis, melena or change in the patient's habitual bowel movements consistency/number. GENITOURINARY: No dysuria, hematuria or change in bladder continence. MUSCULOSKELETAL: No new muscle pain or decrease in muscular strength. No new joint swelling, redness or tenderness. SKIN: No new rash. Physical Exam: GEN: Awake, alert, oriented in person, time and place, and in no acute distress. HEENT: No sinus tenderness. Tympanic membranes were not examined. No rhinorrhea. Oral pharyngeal mucosa is pink, moist and within normal limits. Neck is supple with no cervical lymphadenopathy, thyromegaly or JVD. CHEST: Inspection, palpation and percussion of the chest were unremarkable. Lung auscultation revealed normal breath sounds bilaterally. CARDIAC: PMI is within normal limits. Heart sounds are regular. Normal S1, S2. No gallop or murmur. ABD: Soft, non-tender and not distended. No peritoneal signs on palpation. No organomegaly. Normal bowel sounds. EXT: No cyanosis or clubbing. No edema. SKIN: Intact. No rashes. JOINTS: No evidence of synovitis or acute arthritis. NEURO: Alert and oriented to name, place and person. Cranial nerve examination is unremarkable. No focal motor deficits. Normal speech. Gait is normal. Strength is normal. Vital Signs (last 8hr) Date Time Temp Pulse Resp B/P (MAP) Pulse Ox O2 Delivery O2 Flow Rate FiO2 07/31/24 08:00 98.2 96 16 112/66 100 Nasal Cannula 2.0 07/31/24 07:46 93 15 109/73 100 07/31/24 07:45 95 18 128/74 100 07/31/24 07:30 99 15 136/81 100 07/31/24 07:15 94 13 96/91 100 07/31/24 07:09 96 20 N/Cannula Low lpm 2.0 28 07/31/24 07:08 96 19 07/31/24 07:00 92 17 119/62 100 07/31/24 06:45 96 14 111/57 100 07/31/24 04:00 100 Nasal Cannula* 2 28 07/31/24 04:00 98.1 07/31/24 02:45 96 12 129/82 (98) 100 07/31/24 02:43 99 16 135/85 (102) 100 92/56 (68) 07/31/24 02:30 100 13 130/82 (98) 100 07/31/24 02:15 97 12 126/80 (95) 100 07/31/24 02:00 97 13 135/86 (102) 100 07/31/24 01:45 98 14 143/90 (107) 100 07/31/24 01:44 99 14 143/90 (107) 100 93/56 (68) 07/31/24 01:30 98 13 137/87 (104) 100 07/31/24 01:15 101 13 138/88 (105) 100 07/31/24 01:00 101 13 142/91 (108) 100 07/31/24 00:45 99 12 141/89 (106) 100 Laboratory: [ ] Laboratory: Test 07/31/24 03:57 07/30/24 20:47 07/30/24 14:16 07/30/24 04:27 Range/Units White Blood Count 8.7 4.8-10.8 K/uL Red Blood Count 2.72 L 4.00-5.50 MIL/uL Hemoglobin 7.3 L 12.0-16.0 g/dL Hematocrit 23.5 L 36-48 % Mean Corpuscular Volume 86.4 79-99 fL Mean Corpuscular Hemoglobin 26.8 L 27.0-33.0 pg Mean Corpuscular Hemoglobin Concent 31.1 L 32.0-36.0 g/dL Red Cell Distribution Width 18.4 H 11.0-15.5 % Platelet Count 119 #L 130-400 K/uL Mean Platelet Volume 11.9 H 7.5-10.5 fL Immature Granulocyte % (Auto) 5.4 H 0-1 % Neutrophils (%) (Auto) 69.5 40.0-77.0 % Lymphocytes (%) (Auto) 19.6 L 21.0-51.0 % Monocytes (%) (Auto) 4.7 3.0-13.0 % Eosinophils (%) (Auto) 0.5 0.0-8.0 % Basophils (%) (Auto) 0.3 0.0-5.0 % Neutrophils # (Auto) 6.1 1.8-7.7 K/uL Lymphocytes # (Auto) 1.7 1.0-4.8 K/uL Monocytes # (Auto) 0.4 0.1-1.0 K/uL Eosinophils # (Auto) 0.04 0.00-0.70 K/uL Basophils # (Auto) 0.03 0.00-0.20 K/uL Absolute Immature Granulocyte (auto 0.47 0-1 K/uL Nucleated Red Blood Cells 0.0 0.0-0.19 % Lactic Acid Level 0.9 0.8-2.5 mmol/L Phosphorus Level 2.3 L 2.5-4.9 mg/dL Whole Blood Glucose 102 70-110 MG/DL Blood Gas Specimen Type Arterial Arterial Blood pH 7.524 H 7.350-7.450 Arterial Blood Partial Pressure CO2 34 32-45 mmHg Arterial Blood Partial Pressure O2 104.9 83.0-108.0 mmHg Arterial Blood HCO3 27.7 21.0-28.0 mmol/L Arterial Blood Oxygen Saturation 98.3 H 94.0-98.0 % Arterial Blood Base Excess 5.2 H -2.0-3.0 mmol/L Blood Gas Temperature 37.0 35.5-37.0 CELSIUS Blood Gas Vent Mode CPAP 5,10 ROOM AIR FiO2 30.0 % Blood Gas PEEP 5 cm H2O Blood Gas Specimen Comment RN MILIND Sodium Level 143 136-145 mmol/L Potassium Level 3.8 3.5-5.1 mmol/L Chloride Level 108 101-111 mmol/L Carbon Dioxide Level 29 21-32 mmol/L Blood Urea Nitrogen 25 H 7-18 mg/dL Creatinine 0.5 0.5-1.0 mg/dL Glomerular Filtration Rate Calc 107 >90 mL/min Random Glucose 183 H 70-105 mg/dL Total Calcium 7.5 L 8.5-10.1 mg/dL Total Bilirubin 0.4 0.2-1.0 mg/dL Aspartate Amino Transf (AST/SGOT) 24 10-37 U/L Alanine Aminotransferase (ALT/SGPT) 18 12-78 U/L Alkaline Phosphatase 280 #H 50-136 U/L Total Protein 4.4 L 6.0-8.3 g/dL Albumin 1.3 L 3.5-5.0 g/dL Test 07/29/24 18:16 Range/Units Magnesium Level 2.00 1.80-2.40 mg/dL Current Medications Medications (Trade) Dose Ordered Sig/Alexandra Route PRN Reason Start Time Stop Time Status Last Admin Dose Admin Albumin Human 100 ml @ 50 mls/hr AD IV 07/28/24 08:00 07/31/24 07:59 DC Cefepime HCl (MAXipime 2 gm vial) 2 gm Q24H IVPB 07/26/24 22:00 07/27/24 14:55 DC 07/26/24 22:54 2 GM Dexmedetomidine/ Sodium Chloride (PRECEdex 400MCG/ 100ML-NS) 400 mcg PROTOCOL PRN IV agitation 07/29/24 14:00 08/28/24 13:59 07/30/24 01:18 400 MCG Dextrose (D50w) 50 ml AD PRN IV HYPOGLYCEMIA PROTOCOL 07/27/24 16:00 08/26/24 15:59 Famotidine (Pepcid 20mg Vial) 20 mg Q24H IV 07/25/24 21:00 08/24/24 20:59 07/30/24 20:44 20 MG Fat Emulsion Intravenous 250 ml @ 42 mls/hr QMOFR IV 07/29/24 09:00 08/28/24 08:59 07/29/24 08:23 42 MLS/HR Fentanyl Citrate 100 ml @ 0 mls/hr PROTOCOL IV 07/26/24 13:30 07/27/24 12:04 DC Fentanyl Citrate 100 ml @ 0 mls/hr PROTOCOL IV 07/27/24 12:30 07/29/24 13:42 DC 07/29/24 02:03 5 MLS/HR Fentanyl/Sodium Chloride 250 ml @ 0.1 mls/hr PROTOCOL IV 07/27/24 12:00 07/27/24 12:05 DC Fluconazole/ Sodium Chloride 100 ml @ 100 mls/hr Q24H IV 07/26/24 13:30 08/25/24 13:29 07/30/24 12:31 100 MLS/HR Furosemide (LASix 20MG VIAL) 20 mg Q8H IV 07/28/24 15:30 08/27/24 15:29 07/30/24 23:44 20 MG Glucagon (Glucagon 1mg Kit) 1 mg AD PRN IM HYPOGLYCEMIA PROTOCOL 07/27/24 16:00 08/26/24 15:59 Hydromorphone HCl (DiLAUDid 0.5MG INJ) 0.5 mg Q4H PRN IVP SEVERE PAIN (7-10) 07/29/24 14:00 08/03/24 13:59 07/30/24 23:45 0.5 MG Insulin Glargine (LANtus 100 UNITS/ML 10 ML VIAL) 5 units HS SQ 07/27/24 21:00 07/29/24 09:47 DC 07/28/24 20:48 5 UNITS Insulin Glargine (LANtus 100 UNITS/ML 10 ML VIAL) 15 units BID SQ 07/29/24 21:00 08/28/24 20:59 07/30/24 21:08 15 UNITS Insulin Glargine (LANtus 100 UNITS/ML 10 ML VIAL) 15 units HS SQ 07/29/24 21:00 07/29/24 13:43 DC Insulin Human Regular (humuLIN R 100 UNIT/ML 3ML) INSULIN SLIDING SCAL... Q6H6 SQ 07/26/24 00:00 08/25/24 00:00 07/30/24 12:34 5 UNIT Ipratropium [place] (AtrovENT UD) 0.5 mg [id number] IH 07/30/24 18:00 08/29/24 17:59 07/31/24 07:08 0.5 MG Magnesium Sulfate 50 ml @ 0 mls/hr PROTOCOL PRN IV hypomagnesemia 07/25/24 18:00 08/24/24 17:59 07/29/24 06:33 25 MLS/HR Meropenem (Merrem 1gm) 1 gm Q12H IVPB 07/27/24 15:30 08/03/24 03:31 07/31/24 03:12 1 GM Midazolam HCl 50 ml @ 0 mls/hr PROTOCOL IV 07/26/24 13:30 07/29/24 13:42 DC Ondansetron HCl (zoFRAN 4MG INJ) 4 mg Q6H PRN IVP NAUSEA/VOMITING 07/25/24 18:00 08/24/24 17:59 Pharmacy Profile Note (Lace Assessment) 1 each AD MISC 07/27/24 15:30 07/27/24 15:14 DC Pharmacy Profile Note (Pharmacy Communication) 1 each ONCE MISC 07/27/24 15:00 07/28/24 07:29 DC Phenylephrine HCl 100 mg/Sodium Chloride 250 ml @ 0 mls/hr AD PRN IV TITRATE 07/26/24 13:30 08/25/24 13:29 07/30/24 04:41 9.52 MLS/HR Piperacillin Sod/ Tazobactam Sod (Zosyn 3.375gm+NS 50ml) 3.375 gm Q12H IV 07/25/24 20:00 07/25/24 17:27 DC Piperacillin Sod/ Tazobactam Sod (Zosyn 3.375gm+NS 50ml) 3.375 gm Q8H IVPB 07/25/24 19:00 07/26/24 21:40 DC 07/26/24 19:40 3.375 GM Piperacillin Sod/ Tazobactam Sod (Zosyn 3.375gm+NS 50ml) 3.375 gm Q8H IVPB 07/25/24 20:00 07/25/24 18:49 DC Potassium Chloride 100 ml @ 50 mls/hr AD PRN IV POTASSIUM PROTOCOL 07/25/24 18:00 08/24/24 17:59 07/30/24 08:38 50 MLS/HR Propofol 100 ml @ 0 mls/hr AD PRN IV TITRATE 07/26/24 13:30 07/29/24 13:42 DC 07/29/24 02:49 12.2 MLS/HR Sodium Chloride 1,000 ml @ 125 mls/hr Q8H IV 07/25/24 17:30 07/27/24 16:01 DC 07/27/24 07:58 125 MLS/HR Sodium Chloride (NS 50ml) 50 ml AD IV 07/25/24 17:00 07/25/24 17:29 DC Vancomycin HCl 250 ml @ 125 mls/hr Q12H IV 07/31/24 04:00 08/10/24 03:59 07/31/24 03:12 125 MLS/HR Vancomycin HCl 250 ml @ 125 mls/hr Q24H IV 07/26/24 17:00 07/27/24 15:09 DC 07/26/24 19:55 125 MLS/HR Vancomycin HCl (Vancomycin Protocol) 1 each AD IV 07/25/24 17:00 07/27/24 14:55 DC Vancomycin HCl (Vancomycin Protocol) 1 each AD IV 07/30/24 15:00 08/13/24 14:59 Diagnostics / Radiology: [COPY/PASTE HERE IF NO REPORTS PLEASE DELETE SECTION] Assessment: Abnormal imaging with viscous perforation Plan: Follow surgery recommendations ROSANA JIMENEZ ROOFING FOREMAN July 31, 2024 08:30
--- NOTE | 2024-07-31 10:42 | HMCIMG ---
CHEST 1VW HISTORY: Intubated COMPARISON: 07/30/2024 FINDINGS: A frontal projection of the chest was obtained. Bilateral pulmonary infiltrates are seen with bibasilar linear atelectasis. The heart is borderline enlarged. All the lines and tubes are again seen in place. No evidence of aortic calcification is seen. IMPRESSION: 1. Bilateral pulmonary infiltrates. Right basilar atelectasis.
[2024-07-31 11:36] LABS: HEMATOCRIT 23.2 % (36-48); MEAN CORPUSCULAR HEMOGLOBIN 27.3 pg (27.0-33.0); MEAN CORPUSCULAR VOLUME 87.9 fL (79-99); RED BLOOD CELL COUNT(AUTO) 2.64 MIL/uL (4.00-5.50); RED CELL DISTRIBUTION WIDTH 18.4 % (11.0-15.5); WHITE BLOOD COUNT (AUTO) 8.2 K/uL (4.8-10.8)
[2024-07-31 12:04] LABS: CREATININE 0.4 mg/dL (0.5-1.0); POTASSIUM 3.2 mmol/L (3.5-5.1)
--- NOTE | 2024-07-31 12:20 | PN ---
[facility] PROGRESS NOTE Date Patient Seen: July 31, 2024 Time of Visit: 12:16 Supervising Physician: Dr. Harrington Primary Care Physician: [Dr. Villarreal of [facility] ] Outpatient Specialists: [GI: Dr. Solitario ] Inpatient Consults: [Dr. Quintero of surgery ] PROBLEM LIST: Septic shock from below requiring pressors,resolving Bacterial peritonitis POA + Enterococcus Raffinosus and Klebsiella pneumoniae Bowel perforation w/ Pneumoperitoneum-POA S/P exploratory laparotomy with drainage of intra-abdominal abscess/ventral hernia repair/small-bowel resection/lysis of adhesions/left open and a wound VAC on 07/26/24 per Removal of previously placed ABThera wound VAC & Placement of Seprafilm adhesion barrier 07/28/24 per Incarcerated ventral hernia POA Primary repair ventral hernia 07/28/24 Left Lateral Hernia POA Primary repair left flank hernia 07/28/24 Acute cholecystitis, POAopen cholecystectomy on 07/28/24 High risk for ischemic bowel-POA Acute hypokalemia-POA Dehydration-POA SHARMILA not POA Lactic acidosis-POA Hyperglycemia 2/2 uncontrolled diabetes mellitus Primary HTN HX of colitis HX of inflammatory bowel disease (Crohn's Disease) Recent hospitalization for UTI with outpatient Zosyn antibiotic with Dr. Diaz INTERVAL HISTORY: This is Day 1 open cholecystectomy with removal of previously placed ABTHera wound VAC, placement of ceftriaxone home adhesion barrier, primary repair of left flank hernia and repair of ventral hernia per . no further plans of taking pt back to OR per report. Per RN no major overnight event. Patient is on sedation vacation this morning still 117 to wake up grimaces to movement. Will attempt CPAP this morning. Weaning Jose Armando-Synephrine currently yesterday 0.1 mcg/kg per minute. Lines: Right IJ Cordis, arterial line, OG tube, ET tubes, Troy catheter, DP is. Left BYRON drain 320 mL with red BYRON draining 120 mL. She remains NPO on TPN at 75 mL/hour. Urine output of 3.6 L,-1.9 L balance Patient's problems has been updated of plan of care and verbalizes understandin g. He continues IV antibiotics. Intra-abdominal fluid culture growing positive for Klebsiella pneumoniae and Enterococcus Raffinosus. White count is 9.8 similar to yesterday, H&H stable 8.61/28.5 platelet count trending down 76 K today. Creatinine of 0.7 with GFR of 99 kidneys are improved. Magnesium of 1.7 covered per protocol. Blood sugar of 311 mg/dL insulin adjusted. X-ray stable. ET tube 4.4 cm with the ld. No pneumothorax. 07/30/2024: At the time of my evaluation, the patient was lying in bed. She remains intubated and on mechanical vent support. On the monitor, the patient was marginally tachycardic, tachypneic and blood pressure within normal ranges. Laboratory data today showed improved WBC down to 10.6 there was no profound anemia or thrombocytopenia. Chemistry panel showed no major electrolyte derangement or renal parameter changes. No new microbiology data for review today. Chest imaging showed bilateral pneumonic infiltrates and cardiomegaly. No other complaint. 07/31/2024: At the time of my evaluation, the patient was lying in bed. Family member and staff nurse are present at the bedside. Per the staff nurse, no acute events overnight. On the monitor, the patient had no febrile events, no tachycardia or tachypnea. Blood pressure between normal range and she remains on nasal cannula for oxygen supplementation. Laboratory data today , showed no leukocytosis, there was significant anemia 7.3/23.5 and platelet count of 119. No chemistry was collected for today. Imaging for today still shows pulmonary vascular congestion and pneumonic infiltrates bilaterally. Troy catheter remains in place and patient had a documented urinary output of 2700 mL and a net balance of -28.0. No other complaint REVIEW OF SYSTEMS: 12- point system review was carried out, pertinent positive documented above otherwise negative. PHYSICAL EXAM: GENERAL: Critically- ill appearing. HEENT: Sclera non icteric, moist mucosa pupils3 mm echo and sluggish NECK: Supple, no JVD, trachea midline right IJ Cordis LUNGS: Diminished breath sounds bilaterally. No wheezes HEART: Regular rate and rhythm. Normal S1 and S2, without murmurs ABD: Obese abdomen, mid abdomen dressing clean dry and intact. Bilateral BYRON present. Draining serosanguineous EXT: No clubbing cyanosis or edema. Troy in situ NEURO: Awake, alert and follows commands. Vital Signs (last 8hr) Date Time Temp Pulse Resp B/P (MAP) Pulse Ox O2 Delivery O2 Flow Rate FiO2 07/31/24 11:29 94 20 N/Cannula Low lpm 2.0 28 07/31/24 11:27 100 19 07/31/24 11:00 98 19 103/59 99 Nasal Cannula 2.0 07/31/24 10:45 98 20 111/80 98 07/31/24 10:00 93 18 105/52 100 Nasal Cannula 2.0 07/31/24 09:30 98 18 108/96 99 07/31/24 09:00 97 17 109/73 100 Nasal Cannula 2.0 07/31/24 08:45 96 18 118/71 98 07/31/24 08:00 98.2 96 16 112/66 100 Nasal Cannula 2.0 07/31/24 08:00 96 12 112/66 100 07/31/24 08:00 99 Nasal Cannula* 2 28 07/31/24 07:46 93 15 109/73 100 07/31/24 07:45 95 18 128/74 100 07/31/24 07:30 99 15 136/81 100 07/31/24 07:15 94 13 96/91 100 07/31/24 07:09 96 20 N/Cannula Low lpm 2.0 28 07/31/24 07:08 96 19 07/31/24 07:00 92 17 119/62 100 07/31/24 06:45 96 14 111/57 100 LABS: Hematology Labs: Test 07/31/24 11:27 07/31/24 03:57 Range/Units White Blood Count 8.2 4.8-10.8 K/uL Red Blood Count 2.64 L 4.00-5.50 MIL/uL Hemoglobin 7.2 L 12.0-16.0 g/dL Hematocrit 23.2 L 36-48 % Mean Corpuscular Volume 87.9 79-99 fL Mean Corpuscular Hemoglobin 27.3 27.0-33.0 pg Mean Corpuscular Hemoglobin Concent 31.0 L 32.0-36.0 g/dL Red Cell Distribution Width 18.4 H 11.0-15.5 % Platelet Count 98 L 130-400 K/uL Mean Platelet Volume 11.8 H 7.5-10.5 fL Nucleated Red Blood Cells 0.0 0.0-0.19 % Immature Granulocyte % (Auto) 5.4 H 0-1 % Neutrophils (%) (Auto) 69.5 40.0-77.0 % Lymphocytes (%) (Auto) 19.6 L 21.0-51.0 % Monocytes (%) (Auto) 4.7 3.0-13.0 % Eosinophils (%) (Auto) 0.5 0.0-8.0 % Basophils (%) (Auto) 0.3 0.0-5.0 % Neutrophils # (Auto) 6.1 1.8-7.7 K/uL Lymphocytes # (Auto) 1.7 1.0-4.8 K/uL Monocytes # (Auto) 0.4 0.1-1.0 K/uL Eosinophils # (Auto) 0.04 0.00-0.70 K/uL Basophils # (Auto) 0.03 0.00-0.20 K/uL Absolute Immature Granulocyte (auto 0.47 0-1 K/uL Chemistry Labs: Test 07/31/24 11:27 07/31/24 03:57 07/30/24 20:47 07/30/24 04:27 Range/Units Sodium Level 143 136-145 mmol/L Potassium Level 3.2 L 3.5-5.1 mmol/L Chloride Level 106 101-111 mmol/L Carbon Dioxide Level 31 21-32 mmol/L Blood Urea Nitrogen 22 H 7-18 mg/dL Creatinine 0.4 L 0.5-1.0 mg/dL Glomerular Filtration Rate Calc 113 >90 mL/min Random Glucose 213 H 70-105 mg/dL Total Calcium 7.1 L 8.5-10.1 mg/dL Lactic Acid Level 0.9 0.8-2.5 mmol/L Phosphorus Level 2.3 L 2.5-4.9 mg/dL Whole Blood Glucose 102 70-110 MG/DL Total Bilirubin 0.4 0.2-1.0 mg/dL Aspartate Amino Transf (AST/SGOT) 24 10-37 U/L Alanine Aminotransferase (ALT/SGPT) 18 12-78 U/L Alkaline Phosphatase 280 #H 50-136 U/L Total Protein 4.4 L 6.0-8.3 g/dL Albumin 1.3 L 3.5-5.0 g/dL Test 07/29/24 18:16 Range/Units Magnesium Level 2.00 1.80-2.40 mg/dL DIAGNOSTICS / RADIOLOGY RESULTS: [ ] PLAN 07/30/2024: For now, the patient remains intubated. She was started on CPAP trials and sedation vacation. The intention is to extubate the patient once she meets criteria for extubation. She is going to remain antibiotic coverage as ordered. And we will follow the guidance of the Infectious Disease specialist for further changes. We will repeat surveillance labs tomorrow. We will follow the guidance of the general surgeon regarding her recent exploratory laparotomy with added procedures. We will continue to provide general supportive care, GI and DVT prophylaxis. Further orders per attending MD and hospital course. 07/31/2024: For now, we are going to continue current management for the patient. She will continue on antibiotic therapy as ordered with Merrem, flu conazole and vancomycin. We will continue to diurese the patient with furosemide and we will check a chemistry panel with a.m. labs. We will continue to supplement her nutrition with TPN as ordered. Appreciate the input of the general surgeon, Gastroenterology team and Infectious Disease. To minimize the sources of possible infection, we will DC the arterial and Cordis lines. Patient may be able to initiate participation with physical therapy. We will monitor the patient's progress and response to management. We will continue to provide general supportive care, GI and DVT prophylaxis. Further orders per attending MD and hospital course. NEURO: Minimize central acting medications as possible. Fall Precautions. Well lighted room through the day and minimize interruptions through the night to prevent acute delirium. PULMONARY: Titrate Fio2 to keep Spo2 > or = 90% DuoNebs and CPT as needed IS hourly while awake for pulmonary hygiene once extubated Out of bed to chair as tolerated once extubated CARDIOVASCULAR: Follow hemodynamics. # septic shock -Titrate vasopressor to keep MAP >65 or systolic blood pressure >95mmHg -maintain map above 65, on Jose Armando-Synephrine due to tachycardia Wean Jose Armando-Synephrine as possible DRIPS: TPN LINES: Left PICC Troy catheter GI & NUTRITION: Continue nutritional support Aspirations precautions TPN for nutrition for now Follow General surgery recs KIDNEYS & ELECTROLYTES: Strict monitoring of intake and output Daily weights Avoid nephrotoxic agents Monitor electrolytes and replace as needed Goal urine output of 30mL/hr or 0.5mL/kg/hr ENDOCRINE: Maintain blood glucose between 100-180 at all times. Insulin sliding scale for blood glucose management Hemoglobin A1c 8.1 15 units of Lantus subQ b.i.d. -ISS q.6 hours Avoid hypoglycemia INFECTIOUS DISEASE: Trend temperature. Lawson-culture if febrile. Micro: [ ] 07/26/24 Intra-abdominal fluid culture growing Klebsiella pneumoniae and Enterococcus Raffinosus 07/25/24 blood cultures with no growth Antibiotics: Meropenem Fluconazole Vancomycin HEMATOLOGY & COAGULATION: Monitor H&H. Keep Hgb > 7 Transfuse 1 unit of PRBC for Hgb < 7 Transfuse 1 pack of platelets of platelets < 20, 000 Watch for any signs and symptoms of bleeding SKIN: Pressure ulcer prevention per facility protocol Rehab: PT/OT Prophylaxis: GI: famotidine DVT: SCD Code Status: Full Resuscitation Disposition: ICU Other: I personally spent 50 minutes of critical care time in treatment of this patient. This includes patient management, time at bedside, time reviewing tests, labs, appropriate images and studies, documentation, and patient care coordination. This time excludes separately billable procedures. Case was discussed and seen with my supervising physician. The above plan was formulated and agreed upon. ASHER ALVAREZ NP July 31, 2024 12:20
--- NOTE | 2024-07-31 13:37 | PN ---
[facility] PROGRESS NOTE Date of Service: July 31, 2024 Time of Service: 13:34 SUBJECTIVE: 59-year-old female the past medical history of hypertension who presented to the hospital secondary to abdominal pain. Patient stated for the past 3-4 days she has been having increasing abdominal pain with abdominal distention. She was feeling nauseated and had episodes of emesis at home. She denied any hematemesis, melena, hematochezia. Patient was previously hospitalized in [facility] around one month ago secondary to colitis. GI was consulted during admission and patient underwent colonoscopy with findings showing severe inflammation of the entire colon concerning for pancolitis. She was treated with IV steroids and and was to start patient on Remicade as outpatient. She denied any fever, chills, diarrhea. She was going to follow up with GI as outpatient on 07/26/24 but had worsening pain which caused her to come to the hospital for further evaluation. Labs in the ED were notable for white count of 10.3, hemoglobin was 12.8, platelet count was 363 K, sodium was 138, potassium was 2.8, creatinine is 1.0, blood glucose was 269, lactic acid on presentation was 8.[address] abdomen pelvis which showed free intraperitoneal air concerning for bowel perforation. There is a anterior ventral wall hernia with bowel content and air collection and fat stranding concerning for bowel perforation. Her colon was also noted to be inflamed. CT was performed without contrast. 07/26 BP 135/83, tachycardic 102, saturating 100% 2 L nasal cannula. CBC shows hemoglobin 11.0, hematocrit 35.9, WBC 18.8, platelet count of 203. Sodium 141, potassium 3.7, BUN of 29, creatinine slightly worse today at 1.2. ABG with pH 7.51, pCO2 of 28, PO2 62.6, bicarb of 22.5. Serology to include influenza, SARS and group A negative. Results of chest x-ray pending. Patient is scheduled to be taken to the OR today. 07/27 the patient remains admitted to the intensive care unit, intubated, on mechanical ventilation, status post exploratory laparotomy, postoperative day one, case discussed with the RN, patient on propofol, Jose Armando-Synephrine, wound VAC to the abdomen in place, noted to have right IJ line in place. Getting broad- spectrum IV antibiotics. Blood pressure 130/79, heart rate of 83, saturating 100% on mechanical ventilation, FiO2 40%. Leukocytosis is worse today at 28.1, drop in hemoglobin to 9.7, hematocrit 30.8, with a platelet count of 148. Potassium level 3.6, magnesium 1.6. Lactic acid from 8.2 down to 1.8 ABG with pH 7.4, pCO2 34, PO2 145, bicarb of 20. Chest x-ray shows bilateral lower lung infiltrates. Family at Bedside, updated 07/28 the patient has been seen and examined in the intensive care unit, she remains intubated, mechanical ventilation, on fentanyl, propofol and Jose Armando- Synephrine, getting broad-spectrum antibiotics, BP 112/84, afebrile, saturating 100% on mechanical ventilation, FiO2 40%. CBC with a hemoglobin 8.4, hematocrit 27.8, WBC of 16.3, platelet count of 89. Patient is status post exploratory laparotomy with drainage of intra-abdominal abscess/ventral hernia repair/small- bowel resection/NS of adhesions/left open and wound VAC on 07/23 05/28 by General surgery. Results of septic workup reviewed, Gram-negative rods. Patient with a possible ischemic colitis, plan to take the patient back to the operating room for further exploration. 07/29 Pt seen at bedside, no acute events overnight. She is s/p ex-lap with cholecystectomy. Currently on pressors, will wean as able. Remains intubated, PEEP 5, FiO2 30%, will continue with daily sedation vacations. She is mildly tachycardic. She is NPO, continue TPN per general surgery. WBC increased from 16.3 up to 16.8, Hgb improved from 8.4 up to 8.6, platelets decreased from 89 d own to 76 07/30 Pt seen at bedside, no acute events overnight. She is s/p ex-lap with small bowel resection, appendectomy and drainage of intraabdominal abscess with wound vac post op day 4, repeat ex-lap with cholecystectomy, repair of left flank and ventral hernias post op day 2. Currently on pressors, will wean as able. Remains intubated, PEEP 5, FiO2 30%, she was on sedation vacation, in no acute distress, possible extubation today, will defer to critical care. She is NPO, continue TPN per general surgery. WBC improved from 16.8 down to 10.6, Hgb stable at 8.3, similar to yesterday, platelets improved from 76 up to 90, sabra kirt of her labs are relatively unremarkable. 07/31 patient seen at bedside, no acute events overnight. She is status post ex lap with small-bowel resection, appendectomy and drainage of intra-abdominal abscess with wound VAC postop day five, repeat ex lap with cholecystectomy, repair of left flank and ventral hernias postop day three. She has been successfully extubated, we will continue to try and wean pressors. Hemoglobin stable at 7.2, similar to yesterday, platelets decreased from 119-98, potassium mildly low at 3.2, we will be repleted according to protocol, remainder of her labs are relatively unremarkable. REVIEW OF SYSTEMS 12 point ROS negative unless noted in HPI PHYSICAL EXAM GENERAL APPEARANCE: Patient intubated, on mechanical ventilation. NEUROLOGICAL: Cranial nerves II-XII grossly intact. Motor is 5/5 in bilateral upper and lower extremities proximal to distal. No sensory deficits. HEENT: Face is symmetric. Pupils are equal and reactive. Extraocular movements are intact. NECK: Supple. No JVD. No thyromegaly. No submental, submandibular, pre- /postauricular, occipital or supraclavicular lymphadenopathy. CHEST: Normal chest expansion. No Telemetry. LUNGS: Absence of any rales, rhonchi or any wheezing. CARDIOVASCULAR: Regular. S1 and S2 normal. No appreciable rubs, murmurs or gallops. ABDOMEN: Abdominal wound VAC in place : Deferred. No Troy. EXTREMITIES: Non-edematous and not cyanotic. No clubbing. Good capillary refill. SKIN: No skin breakdown. Vital Signs (last 8hr) Date Time Temp Pulse Resp B/P (MAP) Pulse Ox O2 Delivery O2 Flow Rate FiO2 07/31/24 12:45 99.0 104 13 122/73 93 Room Air 0.0 07/31/24 12:09 94 Room Air* 0 21 07/31/24 11:45 100 20 116/64 95 Nasal Cannula 2.0 07/31/24 11:29 94 20 N/Cannula Low lpm 2.0 07/31/24 11:27 100 19 07/31/24 11:00 98 19 103/59 99 Nasal Cannula 2.0 07/31/24 10:45 98 20 111/80 98 07/31/24 10:00 93 18 105/52 100 Nasal Cannula 2.0 07/31/24 09:30 98 18 108/96 99 07/31/24 09:00 97 17 109/73 100 Nasal Cannula 2.0 07/31/24 08:45 96 18 118/71 98 07/31/24 08:00 98.2 96 16 112/66 100 Nasal Cannula 2.0 07/31/24 08:00 96 12 112/66 100 07/31/24 08:00 99 Nasal Cannula* 2 28 07/31/24 07:46 93 15 109/73 100 07/31/24 07:45 95 18 128/74 100 07/31/24 07:30 99 15 136/81 100 07/31/24 07:15 94 13 96/91 100 07/31/24 07:09 96 20 N/Cannula Low lpm 2.0 07/31/24 07:08 96 19 07/31/24 07:00 92 17 119/62 100 07/31/24 06:45 96 14 111/57 100 LABS: Laboratory: Test 07/31/24 11:27 07/31/24 03:57 07/30/24 20:47 07/30/24 14:16 Range/Units White Blood Count 8.2 4.8-10.8 K/uL Red Blood Count 2.64 L 4.00-5.50 MIL/uL Hemoglobin 7.2 L 12.0-16.0 g/dL Hematocrit 23.2 L 36-48 % Mean Corpuscular Volume 87.9 79-99 fL Mean Corpuscular Hemoglobin 27.3 27.0-33.0 pg Mean Corpuscular Hemoglobin Concent 31.0 L 32.0-36.0 g/dL Red Cell Distribution Width 18.4 H 11.0-15.5 % Platelet Count 98 L 130-400 K/uL Mean Platelet Volume 11.8 H 7.5-10.5 fL Nucleated Red Blood Cells 0.0 0.0-0.19 % Sodium Level 143 136-145 mmol/L Potassium Level 3.2 L 3.5-5.1 mmol/L Chloride Level 106 101-111 mmol/L Carbon Dioxide Level 31 21-32 mmol/L Blood Urea Nitrogen 22 H 7-18 mg/dL Creatinine 0.4 L 0.5-1.0 mg/dL Glomerular Filtration Rate Calc 113 >90 mL/min Random Glucose 213 H 70-105 mg/dL Total Calcium 7.1 L 8.5-10.1 mg/dL Magnesium Level 1.40 L 1.80-2.40 mg/dL Immature Granulocyte % (Auto) 5.4 H 0-1 % Neutrophils (%) (Auto) 69.5 40.0-77.0 % Lymphocytes (%) (Auto) 19.6 L 21.0-51.0 % Monocytes (%) (Auto) 4.7 3.0-13.0 % Eosinophils (%) (Auto) 0.5 0.0-8.0 % Basophils (%) (Auto) 0.3 0.0-5.0 % Neutrophils # (Auto) 6.1 1.8-7.7 K/uL Lymphocytes # (Auto) 1.7 1.0-4.8 K/uL Monocytes # (Auto) 0.4 0.1-1.0 K/uL Eosinophils # (Auto) 0.04 0.00-0.70 K/uL Basophils # (Auto) 0.03 0.00-0.20 K/uL Absolute Immature Granulocyte (auto 0.47 0-1 K/uL Lactic Acid Level 0.9 0.8-2.5 mmol/L Phosphorus Level 2.3 L 2.5-4.9 mg/dL Whole Blood Glucose 102 70-110 MG/DL Blood Gas Specimen Type Arterial Arterial Blood pH 7.524 H 7.350-7.450 Arterial Blood Partial Pressure CO2 34 32-45 mmHg Arterial Blood Partial Pressure O2 104.9 83.0-108.0 mmHg Arterial Blood HCO3 27.7 21.0-28.0 mmol/L Arterial Blood Oxygen Saturation 98.3 H 94.0-98.0 % Arterial Blood Base Excess 5.2 H -2.0-3.0 mmol/L Blood Gas Temperature 37.0 35.5-37.0 CELSIUS Blood Gas Vent Mode CPAP 5,10 ROOM AIR FiO2 30.0 % Blood Gas PEEP 5 cm H2O Blood Gas Specimen Comment RN MILIND Test 07/30/24 04:27 Range/Units Total Bilirubin 0.4 0.2-1.0 mg/dL Aspartate Amino Transf (AST/SGOT) 24 10-37 U/L Alanine Aminotransferase (ALT/SGPT) 18 12-78 U/L Alkaline Phosphatase 280 #H 50-136 U/L Total Protein 4.4 L 6.0-8.3 g/dL Albumin 1.3 L 3.5-5.0 g/dL Current Medications Medications (Trade) Dose Ordered Sig/Alexandra Route PRN Reason Start Time Stop Time Status Last Admin Dose Admin Albumin Human 100 ml @ 50 mls/hr AD IV 07/28/24 08:00 07/31/24 07:59 DC Cefepime HCl (MAXipime 2 gm vial) 2 gm Q24H IVPB 07/26/24 22:00 07/27/24 14:55 DC 07/26/24 22:54 2 GM Dexmedetomidine/ Sodium Chloride (PRECEdex 400MCG/ 100ML-NS) 400 mcg PROTOCOL PRN IV agitation 07/29/24 14:00 08/28/24 13:59 07/30/24 01:18 400 MCG Dextrose (D50w) 50 ml AD PRN IV HYPOGLYCEMIA PROTOCOL 07/27/24 16:00 08/26/24 15:59 Famotidine (Pepcid 20mg Vial) 20 mg Q24H IV 07/25/24 21:00 08/24/24 20:59 07/30/24 20:44 20 MG Fat Emulsion Intravenous 250 ml @ 42 mls/hr QMOFR IV 07/29/24 09:00 08/28/24 08:59 07/29/24 08:23 42 MLS/HR Fentanyl Citrate 100 ml @ 0 mls/hr PROTOCOL IV 07/26/24 13:30 07/27/24 12:04 DC Fentanyl Citrate 100 ml @ 0 mls/hr PROTOCOL IV 07/27/24 12:30 07/29/24 13:42 DC 07/29/24 02:03 5 MLS/HR Fentanyl/Sodium Chloride 250 ml @ 0.1 mls/hr PROTOCOL IV 07/27/24 12:00 07/27/24 12:05 DC Fluconazole/ Sodium Chloride 100 ml @ 100 mls/hr Q24H IV 07/26/24 13:30 08/25/24 13:29 07/31/24 12:38 100 MLS/HR Furosemide (LASix 20MG VIAL) 20 mg Q8H IV 07/28/24 15:30 08/27/24 15:29 07/31/24 09:00 20 MG Glucagon (Glucagon 1mg Kit) 1 mg AD PRN IM HYPOGLYCEMIA PROTOCOL 07/27/24 16:00 08/26/24 15:59 Hydromorphone HCl (DiLAUDid 0.5MG INJ) 0.5 mg Q4H PRN IVP SEVERE PAIN (7-10) 07/29/24 14:00 08/03/24 13:59 07/31/24 10:10 0.5 MG Insulin Glargine (LANtus 100 UNITS/ML 10 ML VIAL) 5 units HS SQ 07/27/24 21:00 07/29/24 09:47 DC 07/28/24 20:48 5 UNITS Insulin Glargine (LANtus 100 UNITS/ML 10 ML VIAL) 15 units BID SQ 07/29/24 21:00 08/28/24 20:59 07/31/24 09:01 15 UNITS Insulin Glargine (LANtus 100 UNITS/ML 10 ML VIAL) 15 units HS SQ 07/29/24 21:00 07/29/24 13:43 DC Insulin Human Regular (humuLIN R 100 UNIT/ML 3ML) INSULIN SLIDING SCAL... Q6H6 SQ 07/26/24 00:00 08/25/24 00:00 07/31/24 12:37 3 UNIT Ipratropium [place] (AtrovENT UD) 0.5 mg [id number] IH 07/30/24 18:00 08/29/24 17:59 07/31/24 11:27 0.5 MG Magnesium Sulfate 50 ml @ 0 mls/hr PROTOCOL PRN IV hypomagnesemia 07/25/24 18:00 08/24/24 17:59 07/31/24 13:06 25 MLS/HR Meropenem (Merrem 1gm) 1 gm Q12H IVPB 07/27/24 15:30 08/03/24 03:31 07/31/24 03:12 1 GM Midazolam HCl 50 ml @ 0 mls/hr PROTOCOL IV 07/26/24 13:30 07/29/24 13:42 DC Ondansetron HCl (zoFRAN 4MG INJ) 4 mg Q6H PRN IVP NAUSEA/VOMITING 07/25/24 18:00 08/24/24 17:59 Pharmacy Profile Note (Lace Assessment) 1 each AD MISC 5/24/25 15:30 07/27/24 15:14 DC Pharmacy Profile Note (Pharmacy Communication) 1 each ONCE MISC 07/27/24 15:00 07/28/24 07:29 DC Phenylephrine HCl 100 mg/Sodium Chloride 250 ml @ 0 mls/hr AD PRN IV TITRATE 07/26/24 13:30 08/25/24 13:29 07/30/24 04:41 9.52 MLS/HR Piperacillin Sod/ Tazobactam Sod (Zosyn 3.375gm+NS 50ml) 3.375 gm Q12H IV 07/25/24 20:00 07/25/24 17:27 DC Piperacillin Sod/ Tazobactam Sod (Zosyn 3.375gm+NS 50ml) 3.375 gm Q8H IVPB 07/25/24 19:00 07/26/24 21:40 DC 07/26/24 19:40 3.375 GM Piperacillin Sod/ Tazobactam Sod (Zosyn 3.375gm+NS 50ml) 3.375 gm Q8H IVPB 07/25/24 20:00 07/25/24 18:49 DC Potassium Chloride 100 ml @ 50 mls/hr AD PRN IV POTASSIUM PROTOCOL 07/25/24 18:00 08/24/24 17:59 07/31/24 12:36 50 MLS/HR Propofol 100 ml @ 0 mls/hr AD PRN IV TITRATE 07/26/24 13:30 07/29/24 13:42 DC 07/29/24 02:49 12.2 MLS/HR Sodium Chloride 1,000 ml @ 125 mls/hr Q8H IV 07/25/24 17:30 07/27/24 16:01 DC 07/27/24 07:58 125 MLS/HR Sodium Chloride (NS 50ml) 50 ml AD IV 07/25/24 17:00 07/25/24 17:29 DC Vancomycin HCl 250 ml @ 125 mls/hr Q12H IV 07/31/24 04:00 08/10/24 03:59 07/31/24 03:12 125 MLS/HR Vancomycin HCl 250 ml @ 125 mls/hr Q24H IV 07/26/24 17:00 07/27/24 15:09 DC 07/26/24 19:55 125 MLS/HR Vancomycin HCl (Vancomycin Protocol) 1 each AD IV 07/25/24 17:00 07/27/24 14:55 DC Vancomycin HCl (Vancomycin Protocol) 1 each AD IV 07/30/24 15:00 08/13/24 14:59 DIAGNOSTICS / RADIOLOGY: [ ] ASSESSMENT: Septic shock requiring pressors Bacterial peritonitis POA Bowel perforation w/ [id number] S/P exploratory laparotomy with drainage of intra-abdominal abscess/ventral hernia repair/small-bowel resection/NS of adhesions/left open and a wound VAC on 07/26/24 per High risk for ischemic bowel-POA Intractable abdominal pain-POA Acute hypokalemia-POA this is Dehydration-POA SHARMILA not POA Lactic acidosis-POA Hyperglycemia 2/2 uncontrolled diabetes mellitus Primary HTN HX of colitis HX of inflammatory bowel disease (Crohn's Disease) HX of cardiac arrest HX of BLE cellulitis Recent hospitalization for UTI with outpatient Zosyn antibiotic with Dr. Diaz PLAN: The patient remains admitted to the intensive care unit Supplemental oxygen as needed, SA O2 goal of 88-92% Continue pressors, wean as tolerated Continue with the abdominal wound VAC in place Critical Care consulted, follow input and recommendation Continue to follow surgical input and recommendation. Diet per general surgery recommendations Continue the patient on broad-spectrum IV antibiotics, follow ID input and recommendation. Prognosis is guarded Disposition: Pending improvement in clinical condition FRANSICO HOWELL MD July 31, 2024 13:37
--- NOTE | 2024-07-31 14:25 | NUR ---
[facility] Consult: Patient assessed by wound healing team. See wound assessment. Assessment and recommendations provided to primary nurse. Education provided. Addendum: 08/02/24 at 1044 by ANA LARA RN RN/ Amended: Links added.
[2024-07-31] MEDS: metoPROLOL tartRATE 1 MG/ML 5ML VIAL IV ONE (15:27)
--- NOTE | 2024-07-31 17:07 | PN ---
INFECTIOUS DISEASE PROGRESS NOTE Date of Service: July 31, 2024 SUBJECTIVE: Patient was seen and examined at bedside in room 207. Patient has been extubated and during visit today she remained on oxygen via nasal cannula at 2 liters/minute. Patient is status post closure of exploratory laparotomy, repair of incarcerated ventral hernia repair and open cholecystectomy on 07/28/2024. Wound cultures resulted with polymicrobial infection and patient continues on vancomycin, Meropenem and fluconazole. No fever this morning, temperature is 98.2. Patient's visiting at bedside. We will continue to follow patient's care. PHYSICAL EXAM EYES: Anicteric. Pupils equal and reactive. HENT: No oral thrush seen, moist Oral mucosa NECK: Supple, no JVD or thyromegaly. LUNGS: Good air entry. No rales, no rhonchi. Intubated. CARDIOVASCULAR: S1, S2 regular. No murmur heard. ABDOMEN: Soft, non tender, bowel sounds present, no organomegaly. Abdominal surgical incision with BYRON drains CENTRAL NERVOUS SYSTEM: Intubated. SKIN: No rashes, no swelling. LYMPHATICS: No peripheral lymphadenopathy. MUSCULOSKELETAL: No joint swelling, erythema or tenderness. EXTREMITIES: No cyanosis or clubbing. BACK: No deformity, no pressure ulcer. GENITOURINARY: No dysuria or hematuria. Troy catheter. Vital Sign (Last 12 Hours) 07/31/24 07/31/24 07/31/24 07/31/24 06:45 07:00 07:08 07:09 Pulse 96 92 96 96 Resp 14 17 19 20 B/P (MAP) 111/57 119/62 Pulse Ox 100 100 O2 Delivery N/Cannula Low lpm O2 Flow Rate 2.0 FiO2 07/31/24 07/31/24 07/31/24 07/31/24 07:15 07:30 07:45 07:46 Pulse 94 99 95 93 Resp 13 15 18 15 B/P (MAP) 96/91 136/81 128/74 109/73 Pulse Ox 100 100 100 100 07/31/24 07/31/24 07/31/24 07/31/24 08:00 08:00 08:00 08:45 Temp 98.2 Pulse 96 96 96 Resp 12 16 18 B/P (MAP) 112/66 112/66 118/71 Pulse Ox 99 100 100 98 O2 Delivery Nasal Cannula* Nasal Cannula O2 Flow Rate 2 2.0 FiO2 28 07/31/24 07/31/24 07/31/24 07/31/24 09:00 09:30 10:00 10:45 Pulse 97 98 93 98 Resp 17 18 18 20 B/P (MAP) 109/73 108/96 105/52 111/80 Pulse Ox 100 99 100 98 O2 Delivery Nasal Cannula Nasal Cannula O2 Flow Rate 2.0 2.0 07/31/24 07/31/24 07/31/24 07/31/24 11:00 11:27 11:29 11:45 Pulse 98 100 94 100 Resp 19 19 20 20 B/P (MAP) 103/59 116/64 Pulse Ox 99 95 O2 Delivery Nasal Cannula N/Cannula Low lpm Nasal Cannula O2 Flow Rate 2.0 2.0 2.0 FiO2 07/31/24 07/31/24 07/31/24 07/31/24 12:09 12:45 13:45 14:45 Temp 99.0 Pulse 104 106 105 Resp 13 16 16 B/P (MAP) 122/73 124/77 129/79 Pulse Ox 94 93 93 95 O2 Delivery Room Air* Room Air Room Air Room Air O2 Flow Rate 0 0.0 0.0 0.0 FiO2 21 07/31/24 07/31/24 07/31/24 07/31/24 15:25 15:27 15:45 15:46 Pulse 104 104 96 Resp 14 17 B/P (MAP) 121/72 121/72 117/56 Pulse Ox 95 95 94 O2 Delivery Room Air Room Air Room Air* O2 Flow Rate 0.0 0.0 0 FiO2 21 Intake & Output (last 24hrs) 07/30/24 07/30/24 07/31/24 15:00 23:00 07:00 Intake Total 1184.3 ml 984.1 ml 690.0 ml Output Total 1150 ml 1750 ml Balance 34.3 ml -765.9 ml 690.0 ml LABS: Laboratory: Test 07/31/24 16:28 07/31/24 11:27 07/31/24 03:57 07/30/24 14:16 Range/Units Whole Blood Glucose 166 #H 70-110 MG/DL White Blood Count 8.2 4.8-10.8 K/uL Red Blood Count 2.64 L 4.00-5.50 MIL/uL Hemoglobin 7.2 L 12.0-16.0 g/dL Hematocrit 23.2 L 36-48 % Mean Corpuscular Volume 87.9 79-99 fL Mean Corpuscular Hemoglobin 27.3 27.0-33.0 pg Mean Corpuscular Hemoglobin Concent 31.0 L 32.0-36.0 g/dL Red Cell Distribution Width 18.4 H 11.0-15.5 % Platelet Count 98 L 130-400 K/uL Mean Platelet Volume 11.8 H 7.5-10.5 fL Nucleated Red Blood Cells 0.0 0.0-0.19 % Sodium Level 143 136-145 mmol/L Potassium Level 3.2 L 3.5-5.1 mmol/L Chloride Level 106 101-111 mmol/L Carbon Dioxide Level 31 21-32 mmol/L Blood Urea Nitrogen 22 H 7-18 mg/dL Creatinine 0.4 L 0.5-1.0 mg/dL Glomerular Filtration Rate Calc 113 >90 mL/min Random Glucose 213 H 70-105 mg/dL Total Calcium 7.1 L 8.5-10.1 mg/dL Magnesium Level 1.40 L 1.80-2.40 mg/dL Immature Granulocyte % (Auto) 5.4 H 0-1 % Neutrophils (%) (Auto) 69.5 40.0-77.0 % Lymphocytes (%) (Auto) 19.6 L 21.0-51.0 % Monocytes (%) (Auto) 4.7 3.0-13.0 % Eosinophils (%) (Auto) 0.5 0.0-8.0 % Basophils (%) (Auto) 0.3 0.0-5.0 % Neutrophils # (Auto) 6.1 1.8-7.7 K/uL Lymphocytes # (Auto) 1.7 1.0-4.8 K/uL Monocytes # (Auto) 0.4 0.1-1.0 K/uL Eosinophils # (Auto) 0.04 0.00-0.70 K/uL Basophils # (Auto) 0.03 0.00-0.20 K/uL Absolute Immature Granulocyte (auto 0.47 0-1 K/uL Lactic Acid Level 0.9 0.8-2.5 mmol/L Phosphorus Level 2.3 L 2.5-4.9 mg/dL Blood Gas Specimen Type Arterial Arterial Blood pH 7.524 H 7.350-7.450 Arterial Blood Partial Pressure CO2 34 32-45 mmHg Arterial Blood Partial Pressure O2 104.9 83.0-108.0 mmHg Arterial Blood HCO3 27.7 21.0-28.0 mmol/L Arterial Blood Oxygen Saturation 98.3 H 94.0-98.0 % Arterial Blood Base Excess 5.2 H -2.0-3.0 mmol/L Blood Gas Temperature 37.0 35.5-37.0 CELSIUS Blood Gas Vent Mode CPAP 5,10 ROOM AIR FiO2 30.0 % Blood Gas PEEP 5 cm H2O Blood Gas Specimen Comment RN MILIND Test 07/30/24 04:27 Range/Units Total Bilirubin 0.4 0.2-1.0 mg/dL Aspartate Amino Transf (AST/SGOT) 24 10-37 U/L Alanine Aminotransferase (ALT/SGPT) 18 12-78 U/L Alkaline Phosphatase 280 #H 50-136 U/L Total Protein 4.4 L 6.0-8.3 g/dL Albumin 1.3 L 3.5-5.0 g/dL ASSESSMENT: Intestinal perforation, status post closure of exploratory laparotomy on 07/28/2024. Intra-abdominal abscess with polymicrobial infection, status post open drainage 07/26/2024. Peritonitis. Respiratory failure requiring intubation, s/p extubated. Leukocytosis. Anemia. History of colitis. PLAN: Start vancomycin per pharmacy protocol. Continue Meropenem. Continue fluconazole. Continue GI prophylaxis. Continue critical care support. Continue ventilatory support. We will monitor electrolytes. This case was reviewed and discussed with my supervising physician and the above assessment and plan was formulated and agreed upon. ATTESTATION BY PHYSICIAN I have seen and examined the patient. I reviewed the documentation, medical decision making, and treatment plan as noted by the mid-level provider above. I agree with the findings and plan of care. MILLIE CHATTERJEE MD, MIRTA L [employer] July 31, 2024 17:07
[2024-07-31 17:13] LABS: MAGNESIUM 1.7 mg/dL (1.80-2.40); POTASSIUM 3.8 mmol/L (3.5-5.1)
[2024-07-31] MEDS: ondanSETRON 4MG INJ IVP PRN (20:34)
[2024-07-31] MEDS: BALSAM PERU/CASTOR OIL 60 GM TUBE TP SCH (20:34)
[2024-07-31] MEDS: metoPROLOL tartRATE 1 MG/ML 5ML VIAL IV SCH (20:34)
[2024-07-31] MEDS: NYSTatin 30 GM CREAM TP SCH (20:34)
[2024-08-01] VITALS (26 sets, daily range): BP systolic 105–147; BP diastolic 59–91; PULSE 84–113; RESP 10–29; TEMP 96.7–98.9; O2SAT 93–100
[2024-08-01 03:57] LABS: BASOPHILS # (AUTO) 0.01 K/uL (0.00-0.20); BASOPHILS % (AUTO) 0.1 % (0.0-5.0); EOSINOPHILS # (AUTO) 0.05 K/uL (0.00-0.70); EOSINOPHILS % (AUTO) 0.7 % (0.0-8.0); HEMATOCRIT 23.4 % (36-48); IMMATURE GRANULOCYTE ABSOLUTE 0.37 K/uL (0-1); LYMPHOCYTES # (AUTO) 1.2 K/uL (1.0-4.8); LYMPHOCYTES % (AUTO) 17.3 % (21.0-51.0); MEAN CORPUSCULAR HEMOGLOBIN 26.5 pg (27.0-33.0); MEAN CORPUSCULAR HGB CONC 30.3 g/dL (32.0-36.0); MEAN CORPUSCULAR VOLUME 87.3 fL (79-99); MONOCYTES # (AUTO) 0.4 K/uL (0.1-1.0); NEUTROPHILS % (AUTO) 71.6 % (40.0-77.0); PLATELET COUNT (AUTO) 111 K/uL (130-400); RED BLOOD CELL COUNT(AUTO) 2.68 MIL/uL (4.00-5.50); RED CELL DISTRIBUTION WIDTH 18.1 % (11.0-15.5)
[2024-08-01 04:10] LABS: CREATININE 0.3 mg/dL (0.5-1.0); PHOSPHORUS 2.4 mg/dL (2.5-4.9); POTASSIUM 3.2 mmol/L (3.5-5.1)
[2024-08-01 04:13] LABS: VANCOMYCIN TROUGH 28.7 UG/ML (10.0-20.0)
[2024-08-01] MEDS: M.V.I. IV [ADULT] 10 ML in CLINIMIX-E 5%AA /D15%W 2000ML 2,000 ML IV ONE (04:47)
[2024-08-01] MEDS: PHENOL 177 ML BOTTLE PO PRN (05:24)
--- NOTE | 2024-08-01 07:46 | PN ---
GASTROENTEROLOGY PROGRESS NOTE Date of Visit: August 01, 2024 Time of Visit: 07:46 Events / Notes: [ ] Review of Systems: CONSTITUTIONAL: No malaise or change in sensation of wellbeing. ENMT: No rhinorrhea, otorrhea, sinus pain, ear ache. CARDIOVASCULAR: No angina, palpitations, orthopnea or paroxysmal dyspnea. RESPIRATORY: No SOB. GASTROINTESTINAL: No abdominal pain, nausea, vomiting, diarrhea, hematemesis, melena or change in the patient's habitual bowel movements consistency/number. GENITOURINARY: No dysuria, hematuria or change in bladder continence. MUSCULOSKELETAL: No new muscle pain or decrease in muscular strength. No new joint swelling, redness or tenderness. SKIN: No new rash. Physical Exam: GEN: Awake, alert, oriented in person, time and place, and in no acute distress. HEENT: No sinus tenderness. Tympanic membranes were not examined. No rhinorrhea. Oral pharyngeal mucosa is pink, moist and within normal limits. Neck is supple with no cervical lymphadenopathy, thyromegaly or JVD. CHEST: Inspection, palpation and percussion of the chest were unremarkable. Lung auscultation revealed normal breath sounds bilaterally. CARDIAC: PMI is within normal limits. Heart sounds are regular. Normal S1, S2. No gallop or murmur. ABD: Soft, non-tender and not distended. No peritoneal signs on palpation. No organomegaly. Normal bowel sounds. EXT: No cyanosis or clubbing. No edema. SKIN: Intact. No rashes. JOINTS: No evidence of synovitis or acute arthritis. NEURO: Alert and oriented to name, place and person. Cranial nerve examination is unremarkable. No focal motor deficits. Normal speech. Gait is normal. Strength is normal. Vital Signs (last 8hr) Date Time Temp Pulse Resp B/P (MAP) Pulse Ox O2 Delivery O2 Flow Rate FiO2 08/01/24 07:28 102 18 N/Cannula Low lpm 1.0 24 08/01/24 07:27 104 18 08/01/24 05:00 98 14 114/71 99 Nasal Cannula 2.0 08/01/24 04:00 99.0 94 14 125/73 100 Nasal Cannula 2.0 08/01/24 04:00 100 Nasal Cannula* 2 28 08/01/24 03:00 95 22 130/70 100 Nasal Cannula 2.0 08/01/24 02:00 91 29 106/59 100 Nasal Cannula 2.0 08/01/24 01:00 90 21 105/63 100 Nasal Cannula 2.0 08/01/24 00:00 96.6 93 23 108/59 99 Nasal Cannula 2.0 08/01/24 00:00 100 Nasal Cannula* 2 28 Laboratory: [ ] Laboratory: Test 08/01/24 03:22 07/31/24 23:49 07/30/24 14:16 Range/Units White Blood Count 7.0 4.8-10.8 K/uL Red Blood Count 2.68 L 4.00-5.50 MIL/uL Hemoglobin 7.1 L 12.0-16.0 g/dL Hematocrit 23.4 L 36-48 % Mean Corpuscular Volume 87.3 79-99 fL Mean Corpuscular Hemoglobin 26.5 L 27.0-33.0 pg Mean Corpuscular Hemoglobin Concent 30.3 L 32.0-36.0 g/dL Red Cell Distribution Width 18.1 H 11.0-15.5 % Platelet Count 111 L 130-400 K/uL Mean Platelet Volume 11.4 H 7.5-10.5 fL Immature Granulocyte % (Auto) 5.3 H 0-1 % Neutrophils (%) (Auto) 71.6 40.0-77.0 % Lymphocytes (%) (Auto) 17.3 L 21.0-51.0 % Monocytes (%) (Auto) 5.0 3.0-13.0 % Eosinophils (%) (Auto) 0.7 0.0-8.0 % Basophils (%) (Auto) 0.1 0.0-5.0 % Neutrophils # (Auto) 5.0 1.8-7.7 K/uL Lymphocytes # (Auto) 1.2 1.0-4.8 K/uL Monocytes # (Auto) 0.4 0.1-1.0 K/uL Eosinophils # (Auto) 0.05 0.00-0.70 K/uL Basophils # (Auto) 0.01 0.00-0.20 K/uL Absolute Immature Granulocyte (auto 0.37 0-1 K/uL Nucleated Red Blood Cells 0.0 0.0-0.19 % Sodium Level 141 136-145 mmol/L Potassium Level 3.2 L 3.5-5.1 mmol/L Chloride Level 105 101-111 mmol/L Carbon Dioxide Level 33 H 21-32 mmol/L Blood Urea Nitrogen 20 H 7-18 mg/dL Creatinine 0.3 L 0.5-1.0 mg/dL Glomerular Filtration Rate Calc 121 >90 mL/min Random Glucose 211 H 70-105 mg/dL Lactic Acid Level 1.2 0.8-2.5 mmol/L Total Calcium 7.4 L 8.5-10.1 mg/dL Phosphorus Level 2.4 L 2.5-4.9 mg/dL Magnesium Level 2.00 1.80-2.40 mg/dL Triglycerides Level 157 30-200 mg/dL Cholesterol Level 132 # <200 mg/dL LDL Cholesterol 84 0-99 mg/dL HDL Cholesterol 29 L 35-85 mg/dL Vancomycin Level Trough 28.7 *H 10.0-20.0 UG/ML Whole Blood Glucose 245 H 70-110 MG/DL Blood Gas Specimen Type Arterial Arterial Blood pH 7.524 H 7.350-7.450 Arterial Blood Partial Pressure CO2 34 32-45 mmHg Arterial Blood Partial Pressure O2 104.9 83.0-108.0 mmHg Arterial Blood HCO3 27.7 21.0-28.0 mmol/L Arterial Blood Oxygen Saturation 98.3 H 94.0-98.0 % Arterial Blood Base Excess 5.2 H -2.0-3.0 mmol/L Blood Gas Temperature 37.0 35.5-37.0 CELSIUS Blood Gas Vent Mode CPAP 5,10 ROOM AIR FiO2 30.0 % Blood Gas PEEP 5 cm H2O Blood Gas Specimen Comment RN MILIND Current Medications Medications (Trade) Dose Ordered Sig/Alexandra Route PRN Reason Start Time Stop Time Status Last Admin Dose Admin Albumin Human 100 ml @ 50 mls/hr AD IV 07/28/24 08:00 07/31/24 07:59 DC Cefepime HCl (MAXipime 2 gm vial) 2 gm Q24H IVPB 07/26/24 22:00 07/27/24 14:55 DC 07/26/24 22:54 2 GM Dexmedetomidine/ Sodium Chloride (PRECEdex 400MCG/ 100ML-NS) 400 mcg PROTOCOL PRN IV agitation 07/29/24 14:00 08/28/24 13:59 07/30/24 01:18 400 MCG Dextrose (D50w) 50 ml AD PRN IV HYPOGLYCEMIA PROTOCOL 07/27/24 16:00 08/26/24 15:59 Famotidine (Pepcid 20mg Vial) 20 mg Q24H IV 07/25/24 21:00 08/24/24 20:59 07/31/24 20:34 20 MG Fat Emulsion Intravenous 250 ml @ 42 mls/hr QMOFR IV 07/29/24 09:00 08/28/24 08:59 07/29/24 08:23 42 MLS/HR Fentanyl Citrate 100 ml @ 0 mls/hr PROTOCOL IV 07/26/24 13:30 07/27/24 12:04 DC Fentanyl Citrate 100 ml @ 0 mls/hr PROTOCOL IV 07/27/24 12:30 07/29/24 13:42 DC 07/29/24 02:03 5 MLS/HR Fentanyl/Sodium Chloride 250 ml @ 0.1 mls/hr PROTOCOL IV 07/27/24 12:00 07/27/24 12:05 DC Fluconazole/ Sodium Chloride 100 ml @ 100 mls/hr Q24H IV 07/26/24 13:30 08/25/24 13:29 07/31/24 12:38 100 MLS/HR Furosemide (LASix 20MG VIAL) 20 mg Q8H IV 07/28/24 15:30 08/27/24 15:29 08/01/24 05:50 20 MG Glucagon (Glucagon 1mg Kit) 1 mg AD PRN IM HYPOGLYCEMIA PROTOCOL 07/27/24 16:00 08/26/24 15:59 Hydromorphone HCl (DiLAUDid 0.5MG INJ) 0.5 mg Q4H PRN IVP SEVERE PAIN (7-10) 07/29/24 14:00 08/03/24 13:59 07/31/24 20:35 0.5 MG Insulin Glargine (LANtus 100 UNITS/ML 10 ML VIAL) 5 units HS SQ 07/27/24 21:00 07/29/24 09:47 DC 07/28/24 20:48 5 UNITS Insulin Glargine (LANtus 100 UNITS/ML 10 ML VIAL) 15 units BID SQ 07/29/24 21:00 08/28/24 20:59 07/31/24 20:39 15 UNITS Insulin Glargine (LANtus 100 UNITS/ML 10 ML VIAL) 15 units HS SQ 07/29/24 21:00 07/29/24 13:43 DC Insulin Human Regular (humuLIN R 100 UNIT/ML 3ML) INSULIN SLIDING SCAL... Q6H6 SQ 07/26/24 00:00 08/25/24 00:00 08/01/24 05:37 3 UNIT Ipratropium [place] (AtrovENT UD) 0.5 mg [id number] IH 07/30/24 18:00 08/29/24 17:59 08/01/24 07:26 0.5 MG Magnesium Sulfate 50 ml @ 0 mls/hr PROTOCOL PRN IV hypomagnesemia 07/25/24 18:00 08/24/24 17:59 07/31/24 17:23 25 MLS/HR Meropenem (Merrem 1gm) 1 gm Q12H IVPB 07/27/24 15:30 08/03/24 03:31 08/01/24 03:10 1 GM Metoprolol Tartrate (loprESSOR) 2.5 mg Q12H9 IV 07/31/24 21:00 08/30/24 20:59 07/31/24 20:34 2.5 MG Midazolam HCl 50 ml @ 0 mls/hr PROTOCOL IV 07/26/24 13:30 07/29/24 13:42 DC Nystatin (MycoSTATin 30 GM CREAM) 1 APPL BID TP 07/31/24 21:00 08/30/24 20:59 07/31/24 20:34 1 APPL Ondansetron HCl (zoFRAN 4MG INJ) 4 mg Q6H PRN IVP NAUSEA/VOMITING 07/25/24 18:00 08/24/24 17:59 07/31/24 20:34 4 MG Pharmacy Profile Note (Lace Assessment) 1 each AD MISC 07/27/24 15:30 07/27/24 15:14 DC Pharmacy Profile Note (Pharmacy Communication) 1 each ONCE MISC 07/27/24 15:00 07/28/24 07:29 DC Phenol (Sore Throat [place]) 1 spry Q4H PRN PO SORE THROAT 08/01/24 05:00 08/31/24 04:59 08/01/24 05:24 1 SPRY Phenylephrine HCl 100 mg/Sodium Chloride 250 ml @ 0 mls/hr AD PRN IV TITRATE 07/26/24 13:30 08/25/24 13:29 07/30/24 04:41 9.52 MLS/HR Piperacillin Sod/ Tazobactam Sod (Zosyn 3.375gm+NS 50ml) 3.375 gm Q12H IV 07/25/24 20:00 07/25/24 17:27 DC Piperacillin Sod/ Tazobactam Sod (Zosyn 3.375gm+NS 50ml) 3.375 gm Q8H IVPB 07/25/24 19:00 07/26/24 21:40 DC 07/26/24 19:40 3.375 GM Piperacillin Sod/ Tazobactam Sod (Zosyn 3.375gm+NS 50ml) 3.375 gm Q8H IVPB 07/25/24 20:00 07/25/24 18:49 DC Potassium Chloride 100 ml @ 50 mls/hr AD PRN IV POTASSIUM PROTOCOL 07/25/24 18:00 08/24/24 17:59 08/01/24 06:52 50 MLS/HR Propofol 100 ml @ 0 mls/hr AD PRN IV TITRATE 07/26/24 13:30 07/29/24 13:42 DC 07/29/24 02:49 12.2 MLS/HR Sodium Chloride 1,000 ml @ 125 mls/hr Q8H IV 07/25/24 17:30 07/27/24 16:01 DC 07/27/24 07:58 125 MLS/HR Sodium Chloride (NS 50ml) 50 ml AD IV 07/25/24 17:00 07/25/24 17:29 DC Vancomycin HCl 250 ml @ 125 mls/hr Q12H IV 07/31/24 04:00 08/10/24 03:59 Hold 08/01/24 03:10 125 MLS/HR Vancomycin HCl 250 ml @ 125 mls/hr Q24H IV 07/26/24 17:00 07/27/24 15:09 DC 07/26/24 19:55 125 MLS/HR Vancomycin HCl (Vancomycin Protocol) 1 each AD IV 07/25/24 17:00 07/27/24 14:55 DC Vancomycin HCl (Vancomycin Protocol) 1 each AD IV 07/30/24 15:00 08/13/24 14:59 Wound Care/ Dressing Products (Venelex Ointment) BID TP 07/31/24 21:00 08/30/24 20:59 07/31/24 20:34 1 GM Diagnostics / Radiology: [COPY/PASTE HERE IF NO REPORTS PLEASE DELETE SECTION] Assessment: Abnormal imaging with viscous perforation Plan: Follow surgery recommendations ROSANA JIMENEZ WIRE MACHINE OPERATOR August 01, 2024 07:46
--- NOTE | 2024-08-01 08:27 | HMCIMG ---
CHEST 1VW HISTORY: Intubated COMPARISON: 07/31/2024 FINDINGS: A frontal projection of the chest was obtained. Right midlung linear atelectasis changes are seen. Mild bilateral pulmonary infiltrates are seen with right more than left. The heart is borderline enlarged. All the lines and tubes are again seen in place. No evidence of aortic calcification is seen. IMPRESSION: 1. Right midlung linear atelectasis changes are seen. Mild bilateral pulmonary infiltrates are seen.
--- NOTE | 2024-08-01 08:39 | PN ---
GENERAL SURGERY PROGRESS NOTE DATE OF SERVICE: August 01, 2024 TIME OF SERVICE: 08:39 PROBLEM LISTS: [ ] INTERVAL HISTORY: [ ] PHYSICAL EXAMINATION: GENERAL: [Patient is lying comfortably in bed, not in any obvious distress.] HEAD: [Normal with no signs of head trauma.] EYES: [Not pale not jaundiced afebrile to touch.] ENT: [ Normal.] NECK: [Supple,no tenderness,no lymphadenopathy,no masses,no thyromegaly ,no bruits, no JVD.] LUNGS: [Clear breath sounds bilaterally. No wheezes, rales, or rhonchi.] HEART: [Regular rate and rhythm. Normal S1 and S2, without murmurs, rub or gallop.] VASC: [No edema. Peripheral pulses normal and equal in all extremities.] ABD: [Bowel sounds present,soft, RUQ tender, no masses, no organomegaly.] : [Normal, no suprapubic tenderness.] LYMPH: [No lymphadenopathy noted.] EXT: [ Warm soft, non tender.] SKIN: [ No rashes or lesions.] NEURO: [ Awake Alert and oriented x3.] LABORATORY: [ ] Hematology Labs: Test 08/01/24 03:22 Range/Units White Blood Count 7.0 4.8-10.8 K/uL Red Blood Count 2.68 L 4.00-5.50 MIL/uL Hemoglobin 7.1 L 12.0-16.0 g/dL Hematocrit 23.4 L 36-48 % Mean Corpuscular Volume 87.3 79-99 fL Mean Corpuscular Hemoglobin 26.5 L 27.0-33.0 pg Mean Corpuscular Hemoglobin Concent 30.3 L 32.0-36.0 g/dL Red Cell Distribution Width 18.1 H 11.0-15.5 % Platelet Count 111 L 130-400 K/uL Mean Platelet Volume 11.4 H 7.5-10.5 fL Immature Granulocyte % (Auto) 5.3 H 0-1 % Neutrophils (%) (Auto) 71.6 40.0-77.0 % Lymphocytes (%) (Auto) 17.3 L 21.0-51.0 % Monocytes (%) (Auto) 5.0 3.0-13.0 % Eosinophils (%) (Auto) 0.7 0.0-8.0 % Basophils (%) (Auto) 0.1 0.0-5.0 % Neutrophils # (Auto) 5.0 1.8-7.7 K/uL Lymphocytes # (Auto) 1.2 1.0-4.8 K/uL Monocytes # (Auto) 0.4 0.1-1.0 K/uL Eosinophils # (Auto) 0.05 0.00-0.70 K/uL Basophils # (Auto) 0.01 0.00-0.20 K/uL Absolute Immature Granulocyte (auto 0.37 0-1 K/uL Nucleated Red Blood Cells 0.0 0.0-0.19 % Chemistry Labs: Test 08/01/24 08:12 08/01/24 03:22 Range/Units Whole Blood Glucose 145 H 70-110 MG/DL Sodium Level 141 136-145 mmol/L Potassium Level 3.2 L 3.5-5.1 mmol/L Chloride Level 105 101-111 mmol/L Carbon Dioxide Level 33 H 21-32 mmol/L Blood Urea Nitrogen 20 H 7-18 mg/dL Creatinine 0.3 L 0.5-1.0 mg/dL Glomerular Filtration Rate Calc 121 >90 mL/min Random Glucose 211 H 70-105 mg/dL Lactic Acid Level 1.2 0.8-2.5 mmol/L Total Calcium 7.4 L 8.5-10.1 mg/dL Phosphorus Level 2.4 L 2.5-4.9 mg/dL Magnesium Level 2.00 1.80-2.40 mg/dL Triglycerides Level 157 30-200 mg/dL Cholesterol Level 132 # <200 mg/dL LDL Cholesterol 84 0-99 mg/dL HDL Cholesterol 29 L 35-85 mg/dL DIAGNOSTICS / RADIOLOGY: [Copy/Paste Echos/Imaging Report here] ASSESSMENT: [] PLAN: remove ngt PT/OT ice chips aspiration precautions HOB greater than 45 degrees at all times FERNANDO CONTRERAS MD August 01, 2024 08:39
--- NOTE | 2024-08-01 12:11 | PN ---
[facility] PROGRESS NOTE Date Patient Seen: August 01, 2024 Time of Visit: 12:09 Supervising Physician: Dr. Kearney Primary Care Physician: [Dr. Villarreal of [facility] ] Outpatient Specialists: [GI: Dr. Solitario ] Inpatient Consults: [Dr. Quintero of surgery ] PROBLEM LIST: Septic shock from below requiring pressors,resolving Bacterial peritonitis POA + Enterococcus Raffinosus and Klebsiella pneumoniae Bowel perforation w/ Pneumoperitoneum-POA S/P exploratory laparotomy with drainage of intra-abdominal abscess/ventral hernia repair/small-bowel resection/lysis of adhesions/left open and a wound VAC on 07/26/24 per Removal of previously placed ABThera wound VAC & Placement of Seprafilm adhesion barrier 07/28/24 per Incarcerated ventral hernia POA Primary repair ventral hernia 07/28/24 Left Lateral Hernia POA Primary repair left flank hernia 07/28/24 Acute cholecystitis, POAopen cholecystectomy on 07/28/24 High risk for ischemic bowel-POA Acute hypokalemia-POA Dehydration-POA SHARMILA not POA Lactic acidosis-POA Hyperglycemia 2/2 uncontrolled diabetes mellitus Primary HTN HX of colitis HX of inflammatory bowel disease (Crohn's Disease) Recent hospitalization for UTI with outpatient Zosyn antibiotic with Dr. Diaz INTERVAL HISTORY: This is Day 1 open cholecystectomy with removal of previously placed ABTHera wound VAC, placement of ceftriaxone home adhesion barrier, primary repair of left flank hernia and repair of ventral hernia per . no further plans of taking pt back to OR per report. Per RN no major overnight event. Patient is on sedation vacation this morning still 117 to wake up grimaces to movement. Will attempt CPAP this morning. Weaning Jose Armando-Synephrine currently yesterday 0.1 mcg/kg per minute. Lines: Right IJ Cordis, arterial line, OG tube, ET tubes, Troy catheter, DP is. Left BYRON drain 320 mL with red BYRON draining 120 mL. She remains NPO on TPN at 75 mL/hour. Urine output of 3.6 L,-1.9 L balance Patient's problems has been updated of plan of care and verbalizes understanding. He continues IV antibiotics. Intra-abdominal fluid culture growing positive for Klebsiella pneumoniae and Enterococcus Raffinosus. White count is 9.8 similar to yesterday, H&H stable 8.61/28.5 platelet count trending down 76 K today. Creatinine of 0.7 with GFR of 99 kidneys are improved. Magnesium of 1.7 covered per protocol. Blood sugar of 311 mg/dL insulin adjusted. X-ray stable. ET tube 4.4 cm with the ld. No pneumothorax. 07/30/2024: At the time of my evaluation, the patient was lying in bed. She remains intubated and on mechanical vent support. On the monitor, the patient was marginally tachycardic, tachypneic and blood pressure within normal ranges. Laboratory data today showed improved WBC down to 10.6 there was no profound anemia or thrombocytopenia. Chemistry panel showed no major electrolyte derangement or renal parameter changes. No new microbiology data for review today. Chest imaging showed bilateral pneumonic infiltrates and cardiomegaly. No other complaint. 07/31/2024: At the time of my evaluation, the patient was lying in bed. Family member and staff nurse are present at the bedside. Per the staff nurse, no acute events overnight. On the monitor, the patient had no febrile events, no tachycardia or tachypnea. Blood pressure between normal range and she remains on nasal cannula for oxygen supplementation. Laboratory data today , showed no leukocytosis, there was significant anemia 7.3/23.5 and platelet count of 119. No chemistry was collected for today. Imaging for today still shows pulmonary vascular congestion and pneumonic infiltrates bilaterally. Troy catheter remains in place and patient had a documented urinary output of 2700 mL and a net balance of -28.0. No other complaint 08/01/2024: At the time of my evaluation, the patient was lying in bed. Staff nurse reports no acute events overnight. On the monitor, the patient is with b orderline tachycardia, no tachypnea and normotensive. She remains on a nasal cannula for oxygen supplementation. Surgical site, is benign. BYRON drain x2 totaling 335 mL out voided output of 4800 mL over the past 24 hours with a net balance of -2585.1. Laboratory data today did show a drop in H&H to 7.1/23.4 and a platelet count of 111. Chemistry panel showed a potassium of 3.2, renal parameters were not of concern. No new microbiology data for review. Chest x- ray today showed bilateral pneumonic infiltrate and a right mid lung atelectasis. There was also borderline cardiomegaly. Currently, the patient remains on antibiotic coverage with meropenem, fluconazole and vancomycin. She is also on nutritional support with TPN. No other complaint. REVIEW OF SYSTEMS: 12- point system review was carried out, pertinent positive documented above otherwise negative. PHYSICAL EXAM: GENERAL: Critically- ill appearing. HEENT: Sclera non icteric, moist mucosa pupils3 mm echo and sluggish NECK: Supple, no JVD, trachea midline right IJ Cordis LUNGS: Diminished breath sounds bilaterally. No wheezes HEART: Regular rate and rhythm. Normal S1 and S2, without murmurs ABD: Obese abdomen, mid abdomen dressing clean dry and intact. Bilateral BYRON present. Draining serosanguineous EXT: No clubbing cyanosis or edema. Troy in situ NEURO: Awake, alert and follows commands. Vital Signs (last 8hr) Date Time Temp Pulse Resp B/P (MAP) Pulse Ox O2 Delivery O2 Flow Rate FiO2 08/01/24 11:44 102 18 N/A Room Air 21 08/01/24 11:42 108 18 08/01/24 08:30 98 Nasal Cannula* 1 24 08/01/24 08:30 102 08/01/24 07:30 97.5 107 22 138/91 99 Nasal Cannula 2.0 08/01/24 07:28 102 18 N/Cannula Low lpm 1.0 24 08/01/24 07:27 104 18 08/01/24 05:00 98 14 114/71 99 Nasal Cannula 2.0 LABS: Hematology Labs: Test 08/01/24 03:22 Range/Units White Blood Count 7.0 4.8-10.8 K/uL Red Blood Count 2.68 L 4.00-5.50 MIL/uL Hemoglobin 7.1 L 12.0-16.0 g/dL Hematocrit 23.4 L 36-48 % Mean Corpuscular Volume 87.3 79-99 fL Mean Corpuscular Hemoglobin 26.5 L 27.0-33.0 pg Mean Corpuscular Hemoglobin Concent 30.3 L 32.0-36.0 g/dL Red Cell Distribution Width 18.1 H 11.0-15.5 % Platelet Count 111 L 130-400 K/uL Mean Platelet Volume 11.4 H 7.5-10.5 fL Immature Granulocyte % (Auto) 5.3 H 0-1 % Neutrophils (%) (Auto) 71.6 40.0-77.0 % Lymphocytes (%) (Auto) 17.3 L 21.0-51.0 % Monocytes (%) (Auto) 5.0 3.0-13.0 % Eosinophils (%) (Auto) 0.7 0.0-8.0 % Basophils (%) (Auto) 0.1 0.0-5.0 % Neutrophils # (Auto) 5.0 1.8-7.7 K/uL Lymphocytes # (Auto) 1.2 1.0-4.8 K/uL Monocytes # (Auto) 0.4 0.1-1.0 K/uL Eosinophils # (Auto) 0.05 0.00-0.70 K/uL Basophils # (Auto) 0.01 0.00-0.20 K/uL Absolute Immature Granulocyte (auto 0.37 0-1 K/uL Nucleated Red Blood Cells 0.0 0.0-0.19 % Chemistry Labs: Test 08/01/24 08:12 08/01/24 03:22 Range/Units Whole Blood Glucose 145 H 70-110 MG/DL Sodium Level 141 136-145 mmol/L Potassium Level 3.2 L 3.5-5.1 mmol/L Chloride Level 105 101-111 mmol/L Carbon Dioxide Level 33 H 21-32 mmol/L Blood Urea Nitrogen 20 H 7-18 mg/dL Creatinine 0.3 L 0.5-1.0 mg/dL Glomerular Filtration Rate Calc 121 >90 mL/min Random Glucose 211 H 70-105 mg/dL Lactic Acid Level 1.2 0.8-2.5 mmol/L Total Calcium 7.4 L 8.5-10.1 mg/dL Phosphorus Level 2.4 L 2.5-4.9 mg/dL Magnesium Level 2.00 1.80-2.40 mg/dL Triglycerides Level 157 30-200 mg/dL Cholesterol Level 132 # <200 mg/dL LDL Cholesterol 84 0-99 mg/dL HDL Cholesterol 29 L 35-85 mg/dL DIAGNOSTICS / RADIOLOGY RESULTS: [ ] PLAN 07/30/2024: For now, the patient remains intubated. She was started on CPAP trials and sedation vacation. The intention is to extubate the patient once she meets criteria for extubation. She is going to remain antibiotic coverage as ordered. And we will follow the guidance of the Infectious Disease specialist for further changes. We will repeat surveillance labs tomorrow. We will follow the guidance of the general surgeon regarding her recent exploratory laparotomy with added procedures. We will continue to provide general supportive care, GI and DVT prophylaxis. Further orders per attending MD and hospital course. 07/31/2024: For now, we are going to continue current management for the p atient. She will continue on antibiotic therapy as ordered with Merrem, fluconazole and vancomycin. We will continue to diurese the patient with furosemide and we will check a chemistry panel with a.m. labs. We will continue to supplement her nutrition with TPN as ordered. Appreciate the input of the general surgeon, Gastroenterology team and Infectious Disease. To minimize the sources of possible infection, we will DC the arterial and Cordis lines. Patient may be able to initiate participation with physical therapy. We will monitor the patient's progress and response to management. We will continue to provide general supportive care, GI and DVT prophylaxis. Further orders per attending MD and hospital course. 08/01/2024: For now, going to continue current management for the patient. We will continue nutritional support with TPN. Because of the significant drop in H&H, I am going to repeat a H&H level now. We will continue to supplement the electrolyte imbalance via the protocol. The patient will continue antibiotic therapy as ordered. Physical therapy has been consulted and we will be working with the patient to transfer her out of bed. Respiratory gaona, I believe the patient is stable enough and can be transferred out of the ICU. We will monitor the patient's progress and response to management. We will continue to provide general supportive care, GI and DVT prophylaxis. Further orders per attending MD and hospital course. NEURO: Minimize central acting medications as possible. Fall Precautions. Well lighted room through the day and minimize interruptions through the night to prevent acute delirium. PULMONARY: Titrate Fio2 to keep Spo2 > or = 90% DuoNebs and CPT as needed IS hourly while awake for pulmonary hygiene once extubated Out of bed to chair as tolerated once extubated CARDIOVASCULAR: Follow hemodynamics. # septic shock -Titrate vasopressor to keep MAP >65 or systolic blood pressure >95mmHg -maintain map above 65, on Jose Armando-Synephrine due to tachycardia Wean Jose Armando-Synephrine as possible DRIPS: TPN LINES: Left PICC Troy catheter GI & NUTRITION: Continue nutritional support Aspirations precautions TPN for nutrition for now Follow General surgery recs KIDNEYS & ELECTROLYTES: Strict monitoring of intake and output Daily weights Avoid nephrotoxic agents Monitor electrolytes and replace as needed Goal urine output of 30mL/hr or 0.5mL/kg/hr ENDOCRINE: Maintain blood glucose between 100-180 at all times. Insulin sliding scale for blood glucose management Hemoglobin A1c 8.1 15 units of Lantus subQ b.i.d. -ISS q.6 hours Avoid hypoglycemia INFECTIOUS DISEASE: Trend temperature. Lawson-culture if febrile. Micro: [ ] 07/26/24 Intra-abdominal fluid culture growing Klebsiella pneumoniae and Enterococcus Raffinosus 07/25/24 blood cultures with no growth Antibiotics: Meropenem Fluconazole Vancomycin HEMATOLOGY & COAGULATION: Monitor H&H. Keep Hgb > 7 Transfuse 1 unit of PRBC for Hgb < 7 Transfuse 1 pack of platelets of platelets < 20, 000 Watch for any signs and symptoms of bleeding SKIN: Pressure ulcer prevention per facility protocol Rehab: PT/OT Prophylaxis: GI: famotidine DVT: SCD Code Status: Full Resuscitation Disposition: ICU Other: I personally spent 40 minutes of critical care time in treatment of this patient. This includes patient management, time at bedside, time reviewing tests, labs, appropriate images and studies, documentation, and patient care coordination. This time excludes separately billable procedures. Case was discussed and seen with my supervising physician. The above plan was formulated and agreed upon. ASHER ALVAREZ NP August 01, 2024 12:10
[2024-08-01 12:41] LABS: HEMATOCRIT 24.2 % (36-48)
--- NOTE | 2024-08-01 15:25 | NUR ---
ARRIVED PT ARRIVED VIA STRETCHER ACCOMPANIED BY . IN NO APPARENT DISTRESS. NO PAIN OR COMPLAINTS NOTED. WILL REVIEW ORDERS AND CARRY OUT.
--- NOTE | 2024-08-01 18:00 | PN ---
INFECTIOUS DISEASE PROGRESS NOTE Date of Service: August 01, 2024 SUBJECTIVE: Patient was seen and examined at bedside in room 207. During visit today patient has been downgraded to medical-surgical and pending bed availability. Per report patient sat up to the bedside chair earlier today and tolerated well. Patient is awake, alert and able to answer basic questions well. Patient is status post closure of exploratory laparotomy, repair of incarcerated ventral hernia repair and open cholecystectomy on 07/28/2024. Patient had a low-grade fever of 100.0 last night. This morning temperature is 98.2. Patient is on room air and saturating 96-98%. NG tube still in place. Continues on vancomycin, Meropenem and fluconazole. We will continue to follow patient's care. PHYSICAL EXAM EYES: Anicteric. Pupils equal and reactive. HENT: No oral thrush seen, moist Oral mucosa NECK: Supple, no JVD or thyromegaly. LUNGS: Good air entry. No rales, no rhonchi. CARDIOVASCULAR: S1, S2 regular. No murmur heard. ABDOMEN: Soft, non tender, bowel sounds present, no organomegaly. Abdominal surgical incision with BYRON drains CENTRAL NERVOUS SYSTEM: Awake, alert and oriented x3. SKIN: No rashes, no swelling. LYMPHATICS: No peripheral lymphadenopathy. MUSCULOSKELETAL: No joint swelling, erythema or tenderness. EXTREMITIES: No cyanosis or clubbing. BACK: No deformity, no pressure ulcer. GENITOURINARY: No dysuria or hematuria. Troy catheter. Vital Sign (Last 12 Hours) 08/01/24 08/01/24 08/01/24 08/01/24 07:27 07:28 07:30 08:30 Temp 97.5 Pulse 104 102 107 102 Resp 18 18 22 B/P (MAP) 138/91 Pulse Ox 99 O2 Delivery N/Cannula Low lpm Nasal Cannula O2 Flow Rate 1.0 2.0 FiO2 24 08/01/24 08/01/24 08/01/24 08/01/24 08:30 09:00 10:00 11:00 Pulse 93 100 101 Resp 12 10 11 B/P (MAP) 113/79 119/69 119/71 Pulse Ox 98 98 98 98 O2 Delivery Nasal Cannula* Nasal Cannula Nasal Cannula Room Air O2 Flow Rate 1 1.0 1.0 FiO2 24 08/01/24 08/01/24 08/01/24 08/01/24 11:42 11:44 12:00 12:11 Temp 97.9 Pulse 108 102 106 Resp 18 18 15 B/P (MAP) 125/83 Pulse Ox 96 96 O2 Delivery N/A Room Air Room Air Room Air* O2 Flow Rate 0 FiO2 21 21 08/01/24 08/01/24 08/01/24 08/01/24 12:30 12:48 13:00 14:00 Pulse 84 106 106 102 Resp 17 17 17 13 B/P (MAP) 147/86 131/71 131/71 121/64 Pulse Ox 100 98 96 97 O2 Delivery Room Air Room Air Room Air Room Air 08/01/24 16:02 Temp 98.8 Pulse 105 Resp 18 B/P (MAP) 125/83 Pulse Ox 91 O2 Delivery Room Air Intake & Output (last 24hrs) 07/31/24 07/31/24 08/01/24 15:00 23:00 07:00 Intake Total 975.0 ml 974.9 ml 600.0 ml Output Total 1400 ml 1735 ml 2000 ml Balance -425.0 ml -760.1 ml -1400.0 ml LABS: Laboratory: Test 08/01/24 17:30 08/01/24 14:37 08/01/24 13:12 08/01/24 12:26 Range/Units Whole Blood Glucose 166 H 70-110 MG/DL Vancomycin Level Trough 21.0 #H 10.0-20.0 UG/ML Potassium Level 4.1 3.5-5.1 mmol/L Hemoglobin 6.9 *L 12.0-16.0 g/dL Hematocrit 24.2 L 36-48 % Test 08/01/24 03:22 Range/Units White Blood Count 7.0 4.8-10.8 K/uL Red Blood Count 2.68 L 4.00-5.50 MIL/uL Mean Corpuscular Volume 87.3 79-99 fL Mean Corpuscular Hemoglobin 26.5 L 27.0-33.0 pg Mean Corpuscular Hemoglobin Concent 30.3 L 32.0-36.0 g/dL Red Cell Distribution Width 18.1 H 11.0-15.5 % Platelet Count 111 L 130-400 K/uL Mean Platelet Volume 11.4 H 7.5-10.5 fL Immature Granulocyte % (Auto) 5.3 H 0-1 % Neutrophils (%) (Auto) 71.6 40.0-77.0 % Lymphocytes (%) (Auto) 17.3 L 21.0-51.0 % Monocytes (%) (Auto) 5.0 3.0-13.0 % Eosinophils (%) (Auto) 0.7 0.0-8.0 % Basophils (%) (Auto) 0.1 0.0-5.0 % Neutrophils # (Auto) 5.0 1.8-7.7 K/uL Lymphocytes # (Auto) 1.2 1.0-4.8 K/uL Monocytes # (Auto) 0.4 0.1-1.0 K/uL Eosinophils # (Auto) 0.05 0.00-0.70 K/uL Basophils # (Auto) 0.01 0.00-0.20 K/uL Absolute Immature Granulocyte (auto 0.37 0-1 K/uL Nucleated Red Blood Cells 0.0 0.0-0.19 % Sodium Level 141 136-145 mmol/L Chloride Level 105 101-111 mmol/L Carbon Dioxide Level 33 H 21-32 mmol/L Blood Urea Nitrogen 20 H 7-18 mg/dL Creatinine 0.3 L 0.5-1.0 mg/dL Glomerular Filtration Rate Calc 121 >90 mL/min Random Glucose 211 H 70-105 mg/dL Lactic Acid Level 1.2 0.8-2.5 mmol/L Total Calcium 7.4 L 8.5-10.1 mg/dL Phosphorus Level 2.4 L 2.5-4.9 mg/dL Magnesium Level 2.00 1.80-2.40 mg/dL Triglycerides Level 157 30-200 mg/dL Cholesterol Level 132 # <200 mg/dL LDL Cholesterol 84 0-99 mg/dL HDL Cholesterol 29 L 35-85 mg/dL ASSESSMENT: Intestinal perforation, s/p closure of exploratory laparotomy on 07/28/2024. Intra-abdominal abscess with polymicrobial infection, status post open drainage 07/26/2024. Peritonitis. Respiratory failure requiring intubation, s/p extubated. Leukocytosis, resolved. Anemia. History of colitis. Debility. PLAN: Continue vancomycin per pharmacy protocol. Continue Meropenem. Continue fluconazole. Continue GI prophylaxis. Oxygen support as needed. Continue physical therapy. We will monitor electrolytes. This case was reviewed and discussed with my supervising physician and the above assessment and plan was formulated and agreed upon. ATTESTATION BY PHYSICIAN I have seen and examined the patient. I reviewed the documentation, medical decision making, and treatment plan as noted by the mid-level provider above. I agree with the findings and plan of care. MILLIE CHATTERJEE MD, [facility] August 01, 2024 18:00
[2024-08-02] VITALS (16 sets, daily range): BP systolic 108–140; BP diastolic 63–99; PULSE 63–130; RESP 16–20; TEMP 97.4–98.3; O2SAT 90–100
[2024-08-02 03:51] LABS: BASOPHILS # (AUTO) 0.04 K/uL (0.00-0.20); BASOPHILS % (AUTO) 0.5 % (0.0-5.0); EOSINOPHILS # (AUTO) 0.02 K/uL (0.00-0.70); EOSINOPHILS % (AUTO) 0.2 % (0.0-8.0); HEMATOCRIT 31.3 % (36-48); IMMATURE GRANULOCYTE ABSOLUTE 0.41 K/uL (0-1); LYMPHOCYTES # (AUTO) 1.4 K/uL (1.0-4.8); MEAN CORPUSCULAR HEMOGLOBIN 26.9 pg (27.0-33.0); MEAN CORPUSCULAR VOLUME 86.7 fL (79-99); MONOCYTES # (AUTO) 0.6 K/uL (0.1-1.0); MONOCYTES % (AUTO) 7.2 % (3.0-13.0); NEUTROPHILS # (AUTO) 5.5 K/uL (1.8-7.7); PLATELET COUNT (AUTO) 166 K/uL (130-400); RED BLOOD CELL COUNT(AUTO) 3.61 MIL/uL (4.00-5.50); RED CELL DISTRIBUTION WIDTH 17.7 % (11.0-15.5)
[2024-08-02 04:05] LABS: CREATININE 0.6 mg/dL (0.5-1.0); POTASSIUM 3.2 mmol/L (3.5-5.1); VANCOMYCIN LEVEL 16.4 mcg/mL (20.0-30.0)
[2024-08-02] MEDS: VANCOMYCIN 1G/250ML KIT 250 ML IV SCH (04:50)
--- NOTE | 2024-08-02 09:58 | PN ---
GASTROENTEROLOGY PROGRESS NOTE Date of Visit: August 02, 2024 Time of Visit: 09:58 Events / Notes: [ ] Review of Systems: CONSTITUTIONAL: No malaise or change in sensation of wellbeing. ENMT: No rhinorrhea, otorrhea, sinus pain, ear ache. CARDIOVASCULAR: No angina, palpitations, orthopnea or paroxysmal dyspnea. RESPIRATORY: No SOB. GASTROINTESTINAL: No abdominal pain, nausea, vomiting, diarrhea, hematemesis, melena or change in the patient's habitual bowel movements consistency/number. GENITOURINARY: No dysuria, hematuria or change in bladder continence. MUSCULOSKELETAL: No new muscle pain or decrease in muscular strength. No new joint swelling, redness or tenderness. SKIN: No new rash. Physical Exam: GEN: Awake, alert, oriented in person, time and place, and in no acute distress. HEENT: No sinus tenderness. Tympanic membranes were not examined. No rhinorrhea. Oral pharyngeal mucosa is pink, moist and within normal limits. Neck is supple with no cervical lymphadenopathy, thyromegaly or JVD. CHEST: Inspection, palpation and percussion of the chest were unremarkable. Lung auscultation revealed normal breath sounds bilaterally. CARDIAC: PMI is within normal limits. Heart sounds are regular. Normal S1, S2. No gallop or murmur. ABD: Soft, non-tender and not distended. No peritoneal signs on palpation. No organomegaly. Normal bowel sounds. EXT: No cyanosis or clubbing. No edema. SKIN: Intact. No rashes. JOINTS: No evidence of synovitis or acute arthritis. NEURO: Alert and oriented to name, place and person. Cranial nerve examination is unremarkable. No focal motor deficits. Normal speech. Gait is normal. Strength is normal. Vital Signs (last 8hr) Date Time Temp Pulse Resp B/P (MAP) Pulse Ox O2 Delivery O2 Flow Rate FiO2 08/02/24 08:53 107 140/97 08/02/24 08:00 97.5 107 18 140/63 94 Nasal Cannula 2.0 08/02/24 07:11 103 20 N/Cannula Low lpm 21 08/02/24 06:55 101 20 N/A Room Air 21 08/02/24 06:53 101 20 08/02/24 04:00 98.1 99 18 136/84 90 Room Air Laboratory: [ ] Laboratory: Test 08/02/24 05:44 08/02/24 03:43 08/01/24 14:37 08/01/24 03:22 Range/Units Whole Blood Glucose 214 H 70-110 MG/DL White Blood Count 8.0 4.8-10.8 K/uL Red Blood Count 3.61 L 4.00-5.50 MIL/uL Hemoglobin 9.7 #L 12.0-16.0 g/dL Hematocrit 31.3 #L 36-48 % Mean Corpuscular Volume 86.7 79-99 fL Mean Corpuscular Hemoglobin 26.9 L 27.0-33.0 pg Mean Corpuscular Hemoglobin Concent 31.0 L 32.0-36.0 g/dL Red Cell Distribution Width 17.7 H 11.0-15.5 % Platelet Count 166 # 130-400 K/uL Mean Platelet Volume 11.3 H 7.5-10.5 fL Immature Granulocyte % (Auto) 5.1 H 0-1 % Neutrophils (%) (Auto) 69.0 40.0-77.0 % Lymphocytes (%) (Auto) 18.0 L 21.0-51.0 % Monocytes (%) (Auto) 7.2 3.0-13.0 % Eosinophils (%) (Auto) 0.2 0.0-8.0 % Basophils (%) (Auto) 0.5 0.0-5.0 % Neutrophils # (Auto) 5.5 1.8-7.7 K/uL Lymphocytes # (Auto) 1.4 1.0-4.8 K/uL Monocytes # (Auto) 0.6 0.1-1.0 K/uL Eosinophils # (Auto) 0.02 0.00-0.70 K/uL Basophils # (Auto) 0.04 0.00-0.20 K/uL Absolute Immature Granulocyte (auto 0.41 0-1 K/uL Nucleated Red Blood Cells 0.0 0.0-0.19 % Red Blood Cell Morphology ANISO 1+ Sodium Level 142 136-145 mmol/L Potassium Level 3.2 L 3.5-5.1 mmol/L Chloride Level 104 101-111 mmol/L Carbon Dioxide Level 36 H 21-32 mmol/L Blood Urea Nitrogen 24 H 7-18 mg/dL Creatinine 0.6 0.5-1.0 mg/dL Glomerular Filtration Rate Calc 103 >90 mL/min Random Glucose 207 H 70-105 mg/dL Total Calcium 8.2 L 8.5-10.1 mg/dL Vancomycin Level 16.4 L 20.0-30.0 mcg/mL Vancomycin Level Trough 21.0 #H 10.0-20.0 UG/ML Lactic Acid Level 1.2 0.8-2.5 mmol/L Phosphorus Level 2.4 L 2.5-4.9 mg/dL Magnesium Level 2.00 1.80-2.40 mg/dL Triglycerides Level 157 30-200 mg/dL Cholesterol Level 132 # <200 mg/dL LDL Cholesterol 84 0-99 mg/dL HDL Cholesterol 29 L 35-85 mg/dL Current Medications Medications (Trade) Dose Ordered Sig/Alexandra Route PRN Reason Start Time Stop Time Status Last Admin Dose Admin Albumin Human 100 ml @ 50 mls/hr AD IV 07/28/24 08:00 07/31/24 07:59 DC Cefepime HCl (MAXipime 2 gm vial) 2 gm Q24H IVPB 07/26/24 22:00 07/27/24 14:55 DC 07/26/24 22:54 2 GM Dexmedetomidine/ Sodium Chloride (PRECEdex 400MCG/ 100ML-NS) 400 mcg PROTOCOL PRN IV agitation 07/29/24 14:00 08/28/24 13:59 07/30/24 01:18 400 MCG Dextrose (D50w) 50 ml AD PRN IV HYPOGLYCEMIA PROTOCOL 07/27/24 16:00 08/26/24 15:59 Famotidine (Pepcid 20mg Vial) 20 mg Q24H IV 07/25/24 21:00 08/24/24 20:59 08/01/24 23:48 20 MG Fat Emulsion Intravenous 250 ml @ 42 mls/hr QMOFR IV 07/29/24 09:00 08/28/24 08:59 07/29/24 08:23 42 MLS/HR Fentanyl Citrate 100 ml @ 0 mls/hr PROTOCOL IV 07/26/24 13:30 07/27/24 12:04 DC Fentanyl Citrate 100 ml @ 0 mls/hr PROTOCOL IV 07/27/24 12:30 07/29/24 13:42 DC 07/29/24 02:03 5 MLS/HR Fentanyl/Sodium Chloride 250 ml @ 0.1 mls/hr PROTOCOL IV 07/27/24 12:00 07/27/24 12:05 DC Fluconazole/ Sodium Chloride 100 ml @ 100 mls/hr Q24H IV 07/26/24 13:30 08/25/24 13:29 08/01/24 14:51 100 MLS/HR Furosemide (LASix 20MG VIAL) 20 mg Q8H IV 07/28/24 15:30 08/27/24 15:29 08/02/24 07:16 20 MG Glucagon (Glucagon 1mg Kit) 1 mg AD PRN IM HYPOGLYCEMIA PROTOCOL 07/27/24 16:00 08/26/24 15:59 Hydromorphone HCl (DiLAUDid 0.5MG INJ) 0.5 mg Q4H PRN IVP SEVERE PAIN (7-10) 07/29/24 14:00 08/03/24 13:59 08/02/24 06:00 0.5 MG Insulin Glargine (LANtus 100 UNITS/ML 10 ML VIAL) 5 units HS SQ 07/27/24 21:00 07/29/24 09:47 DC 07/28/24 20:48 5 UNITS Insulin Glargine (LANtus 100 UNITS/ML 10 ML VIAL) 15 units BID SQ 07/29/24 21:00 08/28/24 20:59 08/02/24 08:54 15 UNITS Insulin Glargine (LANtus 100 UNITS/ML 10 ML VIAL) 15 units HS SQ 07/29/24 21:00 07/29/24 13:43 DC Insulin Human Regular (humuLIN R 100 UNIT/ML 3ML) INSULIN SLIDING SCAL... Q6H6 SQ 07/26/24 00:00 08/25/24 00:00 08/02/24 07:17 3 UNIT Ipratropium [place] (AtrovENT UD) 0.5 mg [id number] IH 07/30/24 18:00 08/29/24 17:59 08/02/24 06:53 0.5 MG Magnesium Sulfate 50 ml @ 0 mls/hr PROTOCOL PRN IV hypomagnesemia 07/25/24 18:00 08/24/24 17:59 07/31/24 17:23 25 MLS/HR Meropenem (Merrem 1gm) 1 gm Q12H IVPB 07/27/24 15:30 08/03/24 03:31 08/02/24 03:33 1 GM Metoprolol Tartrate (loprESSOR) 2.5 mg Q12H9 IV 07/31/24 21:00 08/30/24 20:59 08/02/24 08:53 2.5 MG Midazolam HCl 50 ml @ 0 mls/hr PROTOCOL IV 07/26/24 13:30 07/29/24 13:42 DC Nystatin (MycoSTATin 30 GM CREAM) 1 APPL BID TP 07/31/24 21:00 08/30/24 20:59 08/02/24 08:56 1 APPL Ondansetron HCl (zoFRAN 4MG INJ) 4 mg Q6H PRN IVP NAUSEA/VOMITING 07/25/24 18:00 08/24/24 17:59 07/31/24 20:34 4 MG Pharmacy Profile Note (Lace Assessment) 1 each AD MISC 07/27/24 15:30 07/27/24 15:14 DC Pharmacy Profile Note (Pharmacy Communication) 1 each ONCE MISC 07/27/24 15:00 07/28/24 07:29 DC Phenol (Sore Throat Sayre) 1 spry Q4H PRN PO SORE THROAT 08/01/24 05:00 08/31/24 04:59 08/01/24 05:24 1 SPRY Phenylephrine HCl 100 mg/Sodium Chloride 250 ml @ 0 mls/hr AD PRN IV TITRATE 07/26/24 13:30 08/25/24 13:29 07/30/24 04:41 9.52 MLS/HR Piperacillin Sod/ Tazobactam Sod (Zosyn 3.375gm+NS 50ml) 3.375 gm Q12H IV 07/25/24 20:00 07/25/24 17:27 DC Piperacillin Sod/ Tazobactam Sod (Zosyn 3.375gm+NS 50ml) 3.375 gm Q8H IVPB 07/25/24 19:00 07/26/24 21:40 DC 07/26/24 19:40 3.375 GM Piperacillin Sod/ Tazobactam Sod (Zosyn 3.375gm+NS 50ml) 3.375 gm Q8H IVPB 07/25/24 20:00 07/25/24 18:49 DC Potassium Chloride 100 ml @ 50 mls/hr AD PRN IV POTASSIUM PROTOCOL 07/25/24 18:00 08/24/24 17:59 08/02/24 07:15 50 MLS/HR Propofol 100 ml @ 0 mls/hr AD PRN IV TITRATE 07/26/24 13:30 07/29/24 13:42 DC 07/29/24 02:49 12.2 MLS/HR Sodium Chloride 1,000 ml @ 125 mls/hr Q8H IV 07/25/24 17:30 07/27/24 16:01 DC 07/27/24 07:58 125 MLS/HR Sodium Chloride (NS 50ml) 50 ml AD IV 07/25/24 17:00 07/25/24 17:29 DC Vancomycin HCl 250 ml @ 125 mls/hr Q12H IV 07/31/24 04:00 08/02/24 04:37 DC 08/01/24 03:10 125 MLS/HR Vancomycin HCl 250 ml @ 125 mls/hr Q12H IV 08/02/24 05:00 08/12/24 04:59 08/02/24 04:50 125 MLS/HR Vancomycin HCl 250 ml @ 125 mls/hr Q24H IV 07/26/24 17:00 07/27/24 15:09 DC 07/26/24 19:55 125 MLS/HR Vancomycin HCl (Vancomycin Protocol) 1 each AD IV 07/25/24 17:00 07/27/24 14:55 DC Vancomycin HCl (Vancomycin Protocol) 1 each AD IV 07/30/24 15:00 08/13/24 14:59 Wound Care/ Dressing Products (Venelex Ointment) BID TP 07/31/24 21:00 08/30/24 20:59 08/02/24 08:56 1 GM Diagnostics / Radiology: [COPY/PASTE HERE IF NO REPORTS PLEASE DELETE SECTION] Assessment: Abnormal imaging with viscous perforation Plan: Follow surgery recommendations ROSANA JIMENEZ M[employer] HE[employer] ASSOCIATE August 02, 2024 09:58
--- NOTE | 2024-08-02 10:03 | PN ---
GENERAL SURGERY PROGRESS NOTE DATE OF SERVICE: August 02, 2024 TIME OF SERVICE: 10:03 PROBLEM LISTS: [ ] INTERVAL HISTORY: [ ] PHYSICAL EXAMINATION: GENERAL: [Patient is lying comfortably in bed, not in any obvious distress.] HEAD: [Normal with no signs of head trauma.] EYES: [Not pale not jaundiced afebrile to touch.] ENT: [ Normal.] NECK: [Supple,no tenderness,no lymphadenopathy,no masses,no thyromegaly ,no bruits, no JVD.] LUNGS: [Clear breath sounds bilaterally. No wheezes, rales, or rhonchi.] HEART: [Regular rate and rhythm. Normal S1 and S2, without murmurs, rub or gallop.] VASC: [No edema. Peripheral pulses normal and equal in all extremities.] ABD: [Bowel sounds present,soft, RUQ tender, no masses, no organomegaly.] : [Normal, no suprapubic tenderness.] LYMPH: [No lymphadenopathy noted.] EXT: [ Warm soft, non tender.] SKIN: [ No rashes or lesions.] NEURO: [ Awake Alert and oriented x3.] LABORATORY: [ ] Hematology Labs: Test 08/02/24 03:43 Range/Units White Blood Count 8.0 4.8-10.8 K/uL Red Blood Count 3.61 L 4.00-5.50 MIL/uL Hemoglobin 9.7 #L 12.0-16.0 g/dL Hematocrit 31.3 #L 36-48 % Mean Corpuscular Volume 86.7 79-99 fL Mean Corpuscular Hemoglobin 26.9 L 27.0-33.0 pg Mean Corpuscular Hemoglobin Concent 31.0 L 32.0-36.0 g/dL Red Cell Distribution Width 17.7 H 11.0-15.5 % Platelet Count 166 # 130-400 K/uL Mean Platelet Volume 11.3 H 7.5-10.5 fL Immature Granulocyte % (Auto) 5.1 H 0-1 % Neutrophils (%) (Auto) 69.0 40.0-77.0 % Lymphocytes (%) (Auto) 18.0 L 21.0-51.0 % Monocytes (%) (Auto) 7.2 3.0-13.0 % Eosinophils (%) (Auto) 0.2 0.0-8.0 % Basophils (%) (Auto) 0.5 0.0-5.0 % Neutrophils # (Auto) 5.5 1.8-7.7 K/uL Lymphocytes # (Auto) 1.4 1.0-4.8 K/uL Monocytes # (Auto) 0.6 0.1-1.0 K/uL Eosinophils # (Auto) 0.02 0.00-0.70 K/uL Basophils # (Auto) 0.04 0.00-0.20 K/uL Absolute Immature Granulocyte (auto 0.41 0-1 K/uL Nucleated Red Blood Cells 0.0 0.0-0.19 % Red Blood Cell Morphology ANISO 1+ Chemistry Labs: Test 08/02/24 05:44 08/02/24 03:43 08/01/24 03:22 Range/Units Whole Blood Glucose 214 H 70-110 MG/DL Sodium Level 142 136-145 mmol/L Potassium Level 3.2 L 3.5-5.1 mmol/L Chloride Level 104 101-111 mmol/L Carbon Dioxide Level 36 H 21-32 mmol/L Blood Urea Nitrogen 24 H 7-18 mg/dL Creatinine 0.6 0.5-1.0 mg/dL Glomerular Filtration Rate Calc 103 >90 mL/min Random Glucose 207 H 70-105 mg/dL Total Calcium 8.2 L 8.5-10.1 mg/dL Lactic Acid Level 1.2 0.8-2.5 mmol/L Phosphorus Level 2.4 L 2.5-4.9 mg/dL Magnesium Level 2.00 1.80-2.40 mg/dL Triglycerides Level 157 30-200 mg/dL Cholesterol Level 132 # <200 mg/dL LDL Cholesterol 84 0-99 mg/dL HDL Cholesterol 29 L 35-85 mg/dL DIAGNOSTICS / RADIOLOGY: [Copy/Paste Echos/Imaging Report here] ASSESSMENT: [] PLAN: remove ngt PT/OT ice chips aspiration precautions HOB greater than 45 degrees at all times FERNANDO CONTRERAS MD August 02, 2024 10:03
--- NOTE | 2024-08-02 10:17 | NUR ---
AT BEDSIDE. NEW ORDERS FOR CLEAR LIQUIDS, PT, OT.
--- NOTE | 2024-08-02 10:28 | PN ---
[facility] PROGRESS NOTE Date Patient Seen: August 02, 2024 Time of Visit: 10:28 Supervising Physician: [ ] Primary Care Physician: [Dr. Villarreal of [facility] ] Outpatient Specialists: [GI: Dr. Solitario ] Inpatient Consults: [Dr. Quintero of surgery ] PROBLEM LIST: Septic shock from below requiring pressors,resolving Bacterial peritonitis POA + Enterococcus Raffinosus and Klebsiella pneumoniae Bowel perforation w/ Pneumoperitoneum-POA S/P exploratory laparotomy with drainage of intra-abdominal abscess/ventral hernia repair/small-bowel resection/lysis of adhesions/left open and a wound VAC on 07/26/24 per Removal of previously placed ABThera wound VAC & Placement of Seprafilm adhesion barrier 07/28/24 per Incarcerated ventral hernia POA Primary repair ventral hernia 07/28/24 Left Lateral Hernia POA Primary repair left flank hernia 07/28/24 Acute cholecystitis, POAopen cholecystectomy on 07/28/24 High risk for ischemic bowel-POA Acute hypokalemia-POA Dehydration-POA SHARMILA not POA Lactic acidosis-POA Hyperglycemia 2/2 uncontrolled diabetes mellitus Primary HTN HX of colitis HX of inflammatory bowel disease (Crohn's Disease) Recent hospitalization for UTI with outpatient Zosyn antibiotic with Dr. Diaz INTERVAL HISTORY: This is Day 1 open cholecystectomy with removal of previously placed ABTHera wound VAC, placement of ceftriaxone home adhesion barrier, primary repair of left flank hernia and repair of ventral hernia per . no further plans of taking pt back to OR per report. Per RN no major overnight event. Patient is on sedation vacation this morning still 117 to wake up grimaces to movement. Will attempt CPAP this morning. Weaning Jose Armando-Synephrine currently yesterday 0.1 mcg/kg per minute. Lines: Right IJ Cordis, arterial line, OG tube, ET tubes, Troy catheter, DP is. Left BYRON drain 320 mL with red BYRON draining 120 mL. She remains NPO on TPN at 75 mL/hour. Urine output of 3.6 L,-1.9 L balance Patient's problems has been updated of plan of care and verbalizes understanding. He continues IV antibiotics. Intra-abdominal fluid culture growing positive for Klebsiella pneumoniae and Enterococcus Raffinosus. White count is 9.8 similar to yesterday, H&H stable 8.61/28.5 platelet count trending down 76 K today. Creatinine of 0.7 with GFR of 99 kidneys are improved. Magnesium of 1.7 covered per protocol. Blood sugar of 311 mg/dL insulin adjusted. X-ray stable. ET tube 4.4 cm with the ld. No pneumothorax. 07/30/2024: At the time of my evaluation, the patient was lying in bed. She remains intubated and on mechanical vent support. On the monitor, the patient was marginally tachycardic, tachypneic and blood pressure within normal ranges. Laboratory data today showed improved WBC down to 10.6 there was no profound anemia or thrombocytopenia. Chemistry panel showed no major electrolyte derangement or renal parameter changes. No new microbiology data for review today. Chest imaging showed bilateral pneumonic infiltrates and cardiomegaly. No other complaint. 07/31/2024: At the time of my evaluation, the patient was lying in bed. Family member and staff nurse are present at the bedside. Per the staff nurse, no acute events overnight. On the monitor, the patient had no febrile events, no tachycardia or tachypnea. Blood pressure between normal range and she remains on nasal cannula for oxygen supplementation. Laboratory data today , showed no leukocytosis, there was significant anemia 7.3/23.5 and platelet count of 119. No chemistry was collected for today. Imaging for today still shows pulmonary vascular congestion and pneumonic infiltrates bilaterally. Troy catheter remains in place and patient had a documented urinary output of 2700 mL and a net balance of -28.0. No other complaint 08/01/2024: At the time of my evaluation, the patient was lying in bed. Staff nurse reports no acute events overnight. On the monitor, the patient is with borderline tachycardia, no tachypnea and normotensive. She remains on a nasal cannula for oxygen supplementation. Surgical site, is benign. BYRON drain x2 totaling 335 mL out voided output of 4800 mL over the past 24 hours with a net balance of -2585.1. Laboratory data today did show a drop in H&H to 7.1/23.4 and a platelet count of 111. Chemistry panel showed a potassium of 3.2, renal parameters were not of concern. No new microbiology data for review. Chest x- ray today showed bilateral pneumonic infiltrate and a right mid lung atelectasis. There was also borderline cardiomegaly. Currently, the patient remains on antibiotic coverage with meropenem, fluconazole and vancomycin. She is also on nutritional support with TPN. No other complaint. REVIEW OF SYSTEMS: 12- point system review was carried out, pertinent positive documented above otherwise negative. PHYSICAL EXAM: GENERAL: Critically- ill appearing. HEENT: Sclera non icteric, moist mucosa pupils3 mm echo and sluggish NECK: Supple, no JVD, trachea midline right IJ Cordis LUNGS: Diminished breath sounds bilaterally. No wheezes HEART: Regular rate and rhythm. Normal S1 and S2, without murmurs ABD: Obese abdomen, mid abdomen dressing clean dry and intact. Bilateral BYRON present. Draining serosanguineous EXT: No clubbing cyanosis or edema. Troy in situ NEURO: Awake, alert and follows commands. Vital Signs (last 8hr) Date Time Temp Pulse Resp B/P (MAP) Pulse Ox O2 Delivery O2 Flow Rate FiO2 08/02/24 08:53 107 140/97 08/02/24 08:00 97.5 107 18 140/63 94 Nasal Cannula 2.0 08/02/24 07:11 103 20 N/Cannula Low lpm 21 08/02/24 06:55 101 20 N/A Room Air 21 08/02/24 06:53 101 20 08/02/24 04:00 98.1 99 18 136/84 90 Room Air LABS: Hematology Labs: Test 08/02/24 03:43 Range/Units White Blood Count 8.0 4.8-10.8 K/uL Red Blood Count 3.61 L 4.00-5.50 MIL/uL Hemoglobin 9.7 #L 12.0-16.0 g/dL Hematocrit 31.3 #L 36-48 % Mean Corpuscular Volume 86.7 79-99 fL Mean Corpuscular Hemoglobin 26.9 L 27.0-33.0 pg Mean Corpuscular Hemoglobin Concent 31.0 L 32.0-36.0 g/dL Red Cell Distribution Width 17.7 H 11.0-15.5 % Platelet Count 166 # 130-400 K/uL Mean Platelet Volume 11.3 H 7.5-10.5 fL Immature Granulocyte % (Auto) 5.1 H 0-1 % Neutrophils (%) (Auto) 69.0 40.0-77.0 % Lymphocytes (%) (Auto) 18.0 L 21.0-51.0 % Monocytes (%) (Auto) 7.2 3.0-13.0 % Eosinophils (%) (Auto) 0.2 0.0-8.0 % Basophils (%) (Auto) 0.5 0.0-5.0 % Neutrophils # (Auto) 5.5 1.8-7.7 K/uL Lymphocytes # (Auto) 1.4 1.0-4.8 K/uL Monocytes # (Auto) 0.6 0.1-1.0 K/uL Eosinophils # (Auto) 0.02 0.00-0.70 K/uL Basophils # (Auto) 0.04 0.00-0.20 K/uL Absolute Immature Granulocyte (auto 0.41 0-1 K/uL Nucleated Red Blood Cells 0.0 0.0-0.19 % Red Blood Cell Morphology ANISO 1+ Chemistry Labs: Test 08/02/24 05:44 08/02/24 03:43 08/01/24 03:22 Range/Units Whole Blood Glucose 214 H 70-110 MG/DL Sodium Level 142 136-145 mmol/L Potassium Level 3.2 L 3.5-5.1 mmol/L Chloride Level 104 101-111 mmol/L Carbon Dioxide Level 36 H 21-32 mmol/L Blood Urea Nitrogen 24 H 7-18 mg/dL Creatinine 0.6 0.5-1.0 mg/dL Glomerular Filtration Rate Calc 103 >90 mL/min Random Glucose 207 H 70-105 mg/dL Total Calcium 8.2 L 8.5-10.1 mg/dL Lactic Acid Level 1.2 0.8-2.5 mmol/L Phosphorus Level 2.4 L 2.5-4.9 mg/dL Magnesium Level 2.00 1.80-2.40 mg/dL Triglycerides Level 157 30-200 mg/dL Cholesterol Level 132 # <200 mg/dL LDL Cholesterol 84 0-99 mg/dL HDL Cholesterol 29 L 35-85 mg/dL DIAGNOSTICS / RADIOLOGY RESULTS: [ ] PLAN NEURO: Minimize central acting medications as possible. Maintain fall precautions, adequate lighting during the day PULMONARY: Supplemental 02 as needed. Maintain aspiration precautions at all times CARDIOVASCULAR: Follow hemodynamics. Vital signs per facility protocol GI & NUTRITION: Continue with nutritional support. Continue stool softeners and laxatives as needed. KIDNEYS & ELECTROLYTES: Strict monitoring of intake, output and overall fluid balance. Avoid nephrotoxic medications to the extent possible. Medications to be dosed according to renal function. Monitor electrolytes and replace as needed ENDOCRINE: Maintain blood glucose between 100-180 at all times. Hypoglycemia protocol in place INFECTIOUS DISEASE: Trend temperature, WBC and procalcitonin level Follow cultures, deescalate antibiotics as soon as possible. Panculture if new onset fever ONCOLOGY/HEMATOLOGY/COAGULATION: Monitor for s/s of bleeding Monitor hemoglobin, coagulation studies as needed SKIN: Pressure ulcer prevention per facility protocol Specialty mattress ORTHO/REHAB: Continue PT/OT Prophylaxis: Continue GI and DVT prophylaxis Code Status: Full Resuscitation Disposition: TBD Other: Total patient care time: 35 minutes CHANDA MARROQUIN August 02, 2024 10:28
[2024-08-02] MEDS: M.V.I. IV [ADULT] 10 ML in CLINIMIX-E 5%AA /D15%W 2000ML 2,000 ML IV ONE (11:32)
--- NOTE | 2024-08-02 14:05 | NUR ---
DR. Bonner AT BEDSIDE. NO NEW ORDERS AT THIS TIME.
--- NOTE | 2024-08-02 14:10 | PN ---
[facility] PROGRESS NOTE Date of Service: August 02, 2024 Time of Service: 14:04 SUBJECTIVE: 59-year-old female the past medical history of hypertension who presented to the hospital secondary to abdominal pain. Patient stated for the past 3-4 days she has been having increasing abdominal pain with abdominal distention. She was feeling nauseated and had episodes of emesis at home. She denied any hematemesis, melena, hematochezia. Patient was previously hospitalized in [facility] around one month ago secondary to colitis. GI was consulted during admission and patient underwent colonoscopy with findings showing severe inflammation of the entire colon concerning for pancolitis. She was treated with IV steroids and and was to start patient on Remicade as outpatient. She denied any fever, chills, diarrhea. She was going to follow up with GI as outpatient on 07/26/24 but had worsening pain which caused her to come to the hospital for further evaluation. Labs in the ED were notable for white count of 10.3, hemoglobin was 12.8, platelet count was 363 K, sodium was 138, potassium was 2.8, creatinine is 1.0, blood glucose was 269, lactic acid on presentation was 8.[address] abdomen pelvis which showed free intraperitoneal air concerning for bowel perforation. There is a anterior ventral wall hernia with bowel content and air collection and fat stranding concerning for bowel perforation. Her colon was also noted to be inflamed. CT was performed without contrast. 07/26 BP 135/83, tachycardic 102, saturating 100% 2 L nasal cannula. CBC shows hemoglobin 11.0, hematocrit 35.9, WBC 18.8, platelet count of 203. Sodium 141, potassium 3.7, BUN of 29, creatinine slightly worse today at 1.2. ABG with pH 7.51, pCO2 of 28, PO2 62.6, bicarb of 22.5. Serology to include influenza, SARS and group A negative. Results of chest x-ray pending. Patient is scheduled to be taken to the OR today. 07/27 the patient remains admitted to the intensive care unit, intubated, on mechanical ventilation, status post exploratory laparotomy, postoperative day one, case discussed with the RN, patient on propofol, Jose Armando-Synephrine, wound VAC to the abdomen in place, noted to have right IJ line in place. Getting broad- spectrum IV antibiotics. Blood pressure 130/79, heart rate of 83, saturating 100% on mechanical ventilation, FiO2 40%. Leukocytosis is worse today at 28.1, drop in hemoglobin to 9.7, hematocrit 30.8, with a platelet count of 148. Potassium level 3.6, magnesium 1.6. Lactic acid from 8.2 down to 1.8 ABG with pH 7.4, pCO2 34, PO2 145, bicarb of 20. Chest x-ray shows bilateral lower lung infiltrates. Family at Bedside, updated 07/28 the patient has been seen and examined in the intensive care unit, she remains intubated, mechanical ventilation, on fentanyl, propofol and Jose Armando- Synephrine, getting broad-spectrum antibiotics, BP 112/84, afebrile, saturating 100% on mechanical ventilation, FiO2 40%. CBC with a hemoglobin 8.4, hematocrit 27.8, WBC of 16.3, platelet count of 89. Patient is status post exploratory laparotomy with drainage of intra-abdominal abscess/ventral hernia repair/small- bowel resection/NS of adhesions/left open and wound VAC on 07/23 05/28 by General surgery. Results of septic workup reviewed, Gram-negative rods. Patient with a possible ischemic colitis, plan to take the patient back to the operating room for further exploration. 07/29 Pt seen at bedside, no acute events overnight. She is s/p ex-lap with cholecystectomy. Currently on pressors, will wean as able. Remains intubated, PEEP 5, FiO2 30%, will continue with daily sedation vacations. She is mildly tachycardic. She is NPO, continue TPN per general surgery. WBC increased from 16.3 up to 16.8, Hgb improved from 8.4 up to 8.6, platelets decreased from 89 d own to 76 07/30 Pt seen at bedside, no acute events overnight. She is s/p ex-lap with small bowel resection, appendectomy and drainage of intraabdominal abscess with wound vac post op day 4, repeat ex-lap with cholecystectomy, repair of left flank and ventral hernias post op day 2. Currently on pressors, will wean as able. Remains intubated, PEEP 5, FiO2 30%, she was on sedation vacation, in no acute distress, possible extubation today, will defer to critical care. She is NPO, continue TPN per general surgery. WBC improved from 16.8 down to 10.6, Hgb stable at 8.3, similar to yesterday, platelets improved from 76 up to 90, sabra kirt of her labs are relatively unremarkable. 07/31 patient seen at bedside, no acute events overnight. She is status post ex lap with small-bowel resection, appendectomy and drainage of intra-abdominal abscess with wound VAC postop day five, repeat ex lap with cholecystectomy, repair of left flank and ventral hernias postop day three. She has been successfully extubated, we will continue to try and wean pressors. Hemoglobin stable at 7.2, similar to yesterday, platelets decreased from 119-98, potassium mildly low at 3.2, we will be repleted according to protocol, remainder of her labs are relatively unremarkable. 08/02 patient seen at bedside, no acute events overnight. She is status post ex lap with small-bowel resection, appendectomy and drainage of intra-abdominal abscess with wound VAC postop day 6 repeat ex lap with cholecystectomy, repair of left flank and ventral hernias postop day 4. She has been successfully extubated, and weaned off pressors. She was transfused yesterday, Hgb improved from 6.9 up to 9.7, platelets improved to 166, potassium mildly low at 3.2, we will be repleted according to protocol, remainder of her labs are relatively unremarkable. She continues on TPN, diet to be addressed by general surgery. Only complaint is continued xuan-incisional pain REVIEW OF SYSTEMS 12 point ROS negative unless noted in HPI PHYSICAL EXAM GENERAL APPEARANCE: Patient intubated, on mechanical ventilation. NEUROLOGICAL: Cranial nerves II-XII grossly intact. Motor is 5/5 in bilateral upper and lower extremities proximal to distal. No sensory deficits. HEENT: Face is symmetric. Pupils are equal and reactive. Extraocular movements are intact. NECK: Supple. No JVD. No thyromegaly. No submental, submandibular, pre-/ postauricular, occipital or supraclavicular lymphadenopathy. CHEST: Normal chest expansion. No Telemetry. LUNGS: Absence of any rales, rhonchi or any wheezing. CARDIOVASCULAR: Regular. S1 and S2 normal. No appreciable rubs, murmurs or gallops. ABDOMEN: Abdominal wound VAC in place : Deferred. No Troy. EXTREMITIES: Non-edematous and not cyanotic. No clubbing. Good capillary refill. SKIN: No skin breakdown. Vital Signs (last 8hr) Date Time Temp Pulse Resp B/P (MAP) Pulse Ox O2 Delivery O2 Flow Rate FiO2 08/02/24 11:56 97.5 94 17 139/99 136 Room Air 08/02/24 11:22 130 20 N/A Room Air 21 08/02/24 11:20 130 20 08/02/24 08:53 107 140/97 08/02/24 08:00 97.5 107 18 140/63 94 Nasal Cannula 2.0 08/02/24 07:11 103 20 N/A Room Air 21 08/02/24 06:55 101 20 N/A Room Air 08/02/24 06:53 101 20 LABS: Laboratory: Test 08/02/24 11:37 08/02/24 03:43 08/01/24 14:37 08/01/24 03:22 Range/Units Whole Blood Glucose 187 H 70-110 MG/DL White Blood Count 8.0 4.8-10.8 K/uL Red Blood Count 3.61 L 4.00-5.50 MIL/uL Hemoglobin 9.7 #L 12.0-16.0 g/dL Hematocrit 31.3 #L 36-48 % Mean Corpuscular Volume 86.7 79-99 fL Mean Corpuscular Hemoglobin 26.9 L 27.0-33.0 pg Mean Corpuscular Hemoglobin Concent 31.0 L 32.0-36.0 g/dL Red Cell Distribution Width 17.7 H 11.0-15.5 % Platelet Count 166 # 130-400 K/uL Mean Platelet Volume 11.3 H 7.5-10.5 fL Immature Granulocyte % (Auto) 5.1 H 0-1 % Neutrophils (%) (Auto) 69.0 40.0-77.0 % Lymphocytes (%) (Auto) 18.0 L 21.0-51.0 % Monocytes (%) (Auto) 7.2 3.0-13.0 % Eosinophils (%) (Auto) 0.2 0.0-8.0 % Basophils (%) (Auto) 0.5 0.0-5.0 % Neutrophils # (Auto) 5.5 1.8-7.7 K/uL Lymphocytes # (Auto) 1.4 1.0-4.8 K/uL Monocytes # (Auto) 0.6 0.1-1.0 K/uL Eosinophils # (Auto) 0.02 0.00-0.70 K/uL Basophils # (Auto) 0.04 0.00-0.20 K/uL Absolute Immature Granulocyte (auto 0.41 0-1 K/uL Nucleated Red Blood Cells 0.0 0.0-0.19 % Red Blood Cell Morphology ANISO 1+ Sodium Level 142 136-145 mmol/L Potassium Level 3.2 L 3.5-5.1 mmol/L Chloride Level 104 101-111 mmol/L Carbon Dioxide Level 36 H 21-32 mmol/L Blood Urea Nitrogen 24 H 7-18 mg/dL Creatinine 0.6 0.5-1.0 mg/dL Glomerular Filtration Rate Calc 103 >90 mL/min Random Glucose 207 H 70-105 mg/dL Total Calcium 8.2 L 8.5-10.1 mg/dL Vancomycin Level 16.4 L 20.0-30.0 mcg/mL Vancomycin Level Trough 21.0 #H 10.0-20.0 UG/ML Lactic Acid Level 1.2 0.8-2.5 mmol/L Phosphorus Level 2.4 L 2.5-4.9 mg/dL Magnesium Level 2.00 1.80-2.40 mg/dL Triglycerides Level 157 30-200 mg/dL Cholesterol Level 132 # <200 mg/dL LDL Cholesterol 84 0-99 mg/dL HDL Cholesterol 29 L 35-85 mg/dL Current Medications Medications (Trade) Dose Ordered Sig/Alexandra Route PRN Reason Start Time Stop Time Status Last Admin Dose Admin Albumin Human 100 ml @ 50 mls/hr AD IV 07/28/24 08:00 07/31/24 07:59 DC Cefepime HCl (MAXipime 2 gm vial) 2 gm Q24H IVPB 07/26/24 22:00 07/27/24 14:55 DC 07/26/24 22:54 2 GM Dexmedetomidine/ Sodium Chloride (PRECEdex 400MCG/ 100ML-NS) 400 mcg PROTOCOL PRN IV agitation 07/29/24 14:00 08/28/24 13:59 07/30/24 01:18 400 MCG Dextrose (D50w) 50 ml AD PRN IV HYPOGLYCEMIA PROTOCOL 07/27/24 16:00 08/26/24 15:59 Famotidine (Pepcid 20mg Vial) 20 mg Q24H IV 07/25/24 21:00 08/24/24 20:59 08/01/24 23:48 20 MG Fat Emulsion Intravenous 250 ml @ 42 mls/hr QMOFR IV 07/29/24 09:00 08/28/24 08:59 08/02/24 11:51 42 MLS/HR Fentanyl Citrate 100 ml @ 0 mls/hr PROTOCOL IV 07/26/24 13:30 07/27/24 12:04 DC Fentanyl Citrate 100 ml @ 0 mls/hr PROTOCOL IV 07/27/24 12:30 07/29/24 13:42 DC 07/29/24 02:03 5 MLS/HR Fentanyl/Sodium Chloride 250 ml @ 0.1 mls/hr PROTOCOL IV 07/27/24 12:00 07/27/24 12:05 DC Fluconazole/ Sodium Chloride 100 ml @ 100 mls/hr Q24H IV 07/26/24 13:30 08/25/24 13:29 08/02/24 13:54 100 MLS/HR Furosemide (LASix 20MG VIAL) 20 mg Q8H IV 07/28/24 15:30 08/27/24 15:29 08/02/24 07:16 20 MG Glucagon (Glucagon 1mg Kit) 1 mg AD PRN IM HYPOGLYCEMIA PROTOCOL 07/27/24 16:00 08/26/24 15:59 Hydromorphone HCl (DiLAUDid 0.5MG INJ) 0.5 mg Q4H PRN IVP SEVERE PAIN (7-10) 07/29/24 14:00 08/03/24 13:59 08/02/24 11:44 0.5 MG Insulin Glargine (LANtus 100 UNITS/ML 10 ML VIAL) 5 units HS SQ 07/27/24 21:00 07/29/24 09:47 DC 07/28/24 20:48 5 UNITS Insulin Glargine (LANtus 100 UNITS/ML 10 ML VIAL) 15 units BID SQ 07/29/24 21:00 08/28/24 20:59 08/02/24 08:54 15 UNITS Insulin Glargine (LANtus 100 UNITS/ML 10 ML VIAL) 15 units HS SQ 07/29/24 21:00 07/29/24 13:43 DC Insulin Human Regular (humuLIN R 100 UNIT/ML 3ML) INSULIN SLIDING SCAL... Q6H6 SQ 07/26/24 00:00 08/25/24 00:00 08/02/24 12:40 2 UNIT Ipratropium Jasper (AtrovENT UD) 0.5 mg [id number] IH 07/30/24 18:00 08/29/24 17:59 08/02/24 11:17 0.5 MG Magnesium Sulfate 50 ml @ 0 mls/hr PROTOCOL PRN IV hypomagnesemia 07/25/24 18:00 08/24/24 17:59 07/31/24 17:23 25 MLS/HR Meropenem (Merrem 1gm) 1 gm Q12H IVPB 07/27/24 15:30 08/03/24 03:31 08/02/24 03:33 1 GM Metoprolol Tartrate (loprESSOR) 2.5 mg Q12H9 IV 07/31/24 21:00 08/30/24 20:59 08/02/24 08:53 2.5 MG Midazolam HCl 50 ml @ 0 mls/hr PROTOCOL IV 07/26/24 13:30 07/29/24 13:42 DC Nystatin (MycoSTATin 30 GM CREAM) 1 APPL BID TP 07/31/24 21:00 08/30/24 20:59 08/02/24 08:56 1 APPL Ondansetron HCl (zoFRAN 4MG INJ) 4 mg Q6H PRN IVP NAUSEA/VOMITING 07/25/24 18:00 08/24/24 17:59 07/31/24 20:34 4 MG Pharmacy Profile Note (Lace Assessment) 1 each AD MISC 07/27/24 15:30 07/27/24 15:14 DC Pharmacy Profile Note (Pharmacy Communication) 1 each ONCE MISC 07/27/24 15:00 07/28/24 07:29 DC Phenol (Sore Throat Troy) 1 spry Q4H PRN PO SORE THROAT 08/01/24 05:00 08/31/24 04:59 08/01/24 05:24 1 SPRY Phenylephrine HCl 100 mg/Sodium Chloride 250 ml @ 0 mls/hr AD PRN IV TITRATE 07/26/24 13:30 08/25/24 13:29 07/30/24 04:41 9.52 MLS/HR Piperacillin Sod/ Tazobactam Sod (Zosyn 3.375gm+NS 50ml) 3.375 gm Q12H IV 07/25/24 20:00 07/25/24 17:27 DC Piperacillin Sod/ Tazobactam Sod (Zosyn 3.375gm+NS 50ml) 3.375 gm Q8H IVPB 07/25/24 19:00 07/26/24 21:40 DC 07/26/24 19:40 3.375 GM Piperacillin Sod/ Tazobactam Sod (Zosyn 3.375gm+NS 50ml) 3.375 gm Q8H IVPB 07/25/24 20:00 07/25/24 18:49 DC Potassium Chloride 100 ml @ 50 mls/hr AD PRN IV POTASSIUM PROTOCOL 07/25/24 18:00 08/24/24 17:59 08/02/24 07:15 50 MLS/HR Propofol 100 ml @ 0 mls/hr AD PRN IV TITRATE 07/26/24 13:30 07/29/24 13:42 DC 07/29/24 02:49 12.2 MLS/HR Sodium Chloride 1,000 ml @ 125 mls/hr Q8H IV 07/25/24 17:30 07/27/24 16:01 DC 07/27/24 07:58 125 MLS/HR Sodium Chloride (NS 50ml) 50 ml AD IV 07/25/24 17:00 07/25/24 17:29 DC Vancomycin HCl 250 ml @ 125 mls/hr Q12H IV 07/31/24 04:00 08/02/24 04:37 DC 08/01/24 03:10 125 MLS/HR Vancomycin HCl 250 ml @ 125 mls/hr Q12H IV 08/02/24 05:00 08/12/24 04:59 08/02/24 04:50 125 MLS/HR Vancomycin HCl 250 ml @ 125 mls/hr Q24H IV 07/26/24 17:00 07/27/24 15:09 DC 07/26/24 19:55 125 MLS/HR Vancomycin HCl (Vancomycin Protocol) 1 each AD IV 07/25/24 17:00 07/27/24 14:55 DC Vancomycin HCl (Vancomycin Protocol) 1 each AD IV 07/30/24 15:00 08/13/24 14:59 Wound Care/ Dressing Products (Venelex Ointment) BID TP 07/31/24 21:00 08/30/24 20:59 08/02/24 08:56 1 GM DIAGNOSTICS / RADIOLOGY: [ ] ASSESSMENT: Septic shock requiring pressors Bacterial peritonitis POA Bowel perforation w/ [id number] S/P exploratory laparotomy with drainage of intra-abdominal abscess/ventral hernia repair/small-bowel resection/NS of adhesions/left open and a wound VAC on 07/26/24 per High risk for ischemic bowel-POA Intractable abdominal pain-POA Acute hypokalemia-POA this is Dehydration-POA SHARMILA not POA Lactic acidosis-POA Hyperglycemia 2/2 uncontrolled diabetes mellitus Primary HTN HX of colitis HX of inflammatory bowel disease (Crohn's Disease) HX of cardiac arrest HX of BLE cellulitis Recent hospitalization for UTI with outpatient Zosyn antibiotic with Dr. Diaz PLAN: The patient remains admitted to the intensive care unit Continue pressors, wean as tolerated Continue TPN Critical Care consulted, follow input and recommendation Continue to follow surgical input and recommendation. Diet per general surgery recommendations Continue the patient on broad-spectrum IV antibiotics, follow ID input and recommendation. Prognosis is guarded Disposition: Pending improvement in clinical condition FRANSICO HOWELL MD August 02, 2024 14:10
--- NOTE | 2024-08-02 17:02 | PN ---
[facility] PROGRESS NOTE Date Patient Seen: August 02, 2024 Time of Visit: 16:59 Supervising Physician: Dr. Kearney Primary Care Physician: [Dr. Villarreal of [facility] [address] ] Outpatient Specialists: [GI: Dr. Solitario ] Inpatient Consults: [Dr. Quintero of surgery ] PROBLEM LIST: Septic shock from below requiring pressors,resolving Bacterial peritonitis POA + Enterococcus Raffinosus and Klebsiella pneumoniae Bowel perforation w/ Pneumoperitoneum-POA S/P exploratory laparotomy with drainage of intra-abdominal abscess/ventral hernia repair/small-bowel resection/lysis of adhesions/left open and a wound VAC on 07/26/24 per Removal of previously placed ABThera wound VAC & Placement of Seprafilm adhesion barrier 07/28/24 per Incarcerated ventral hernia POA Primary repair ventral hernia 07/28/24 Left Lateral Hernia POA Primary repair left flank hernia 07/28/24 Acute cholecystitis, POAopen cholecystectomy on 07/28/24 High risk for ischemic bowel-POA Acute hypokalemia-POA Dehydration-POA SHARMILA not POA Lactic acidosis-POA Hyperglycemia 2/2 uncontrolled diabetes mellitus Primary HTN HX of colitis HX of inflammatory bowel disease (Crohn's Disease) Recent hospitalization for UTI with outpatient Zosyn antibiotic with Dr. Diaz INTERVAL HISTORY: This is Day 1 open cholecystectomy with removal of previously placed ABTHera wound VAC, placement of ceftriaxone home adhesion barrier, primary repair of left flank hernia and repair of ventral hernia per . no further plans of taking pt back to OR per report. Per RN no major overnight event. Patient is on sedation vacation this morning still 117 to wake up grimaces to movement. Will attempt CPAP this morning. Weaning Jose Armando-Synephrine currently yesterday 0.1 mcg/kg per minute. Lines: Right IJ Cordis, arterial line, OG tube, ET tubes, Troy catheter, DP is. Left BYRON drain 320 mL with red BYRON draining 120 mL. She remains NPO on TPN at 75 mL/hour. Urine output of 3.6 L,-1.9 L balance Patient's problems has been updated of plan of care and verbalizes understanding. He continues IV antibiotics. Intra-abdominal fluid culture growing positive for Klebsiella pneumoniae and Enterococcus Raffinosus. White count is 9.8 similar to yesterday, H&H stable 8.61/28.5 platelet count trending down 76 K today. Creatinine of 0.7 with GFR of 99 kidneys are improved. Magnesium of 1.7 covered per protocol. Blood sugar of 311 mg/dL insulin adjusted. X-ray stable. ET tube 4.4 cm with the ld. No pneumothorax. 07/30/2024: At the time of my evaluation, the patient was lying in bed. She remains intubated and on mechanical vent support. On the monitor, the patient was marginally tachycardic, tachypneic and blood pressure within normal ranges. Laboratory data today showed improved WBC down to 10.6 there was no profound anemia or thrombocytopenia. Chemistry panel showed no major electrolyte derangement or renal parameter changes. No new microbiology data for review today. Chest imaging showed bilateral pneumonic infiltrates and cardiomegaly. No other complaint. 07/31/2024: At the time of my evaluation, the patient was lying in bed. Family member and staff nurse are present at the bedside. Per the staff nurse, no acute events overnight. On the monitor, the patient had no febrile events, no tachycardia or tachypnea. Blood pressure between normal range and she remains on nasal cannula for oxygen supplementation. Laboratory data today , showed no leukocytosis, there was significant anemia 7.3/23.5 and platelet count of 119. No chemistry was collected for today. Imaging for today still shows pulmonary vascular congestion and pneumonic infiltrates bilaterally. Troy catheter remains in place and patient had a documented urinary output of 2700 mL and a net balance of -28.0. No other complaint 08/01/2024: At the time of my evaluation, the patient was lying in bed. Staff nurse reports no acute events overnight. On the monitor, the patient is with b orderline tachycardia, no tachypnea and normotensive. She remains on a nasal cannula for oxygen supplementation. Surgical site, is benign. BYRON drain x2 totaling 335 mL out voided output of 4800 mL over the past 24 hours with a net balance of -2585.1. Laboratory data today did show a drop in H&H to 7.1/23.4 and a platelet count of 111. Chemistry panel showed a potassium of 3.2, renal parameters were not of concern. No new microbiology data for review. Chest x- ray today showed bilateral pneumonic infiltrate and a right mid lung atelectasis. There was also borderline cardiomegaly. Currently, the patient remains on antibiotic coverage with meropenem, fluconazole and vancomycin. She is also on nutritional support with TPN. No other complaint. 08/02/2024: At the time of my evaluation, the patient was lying in bed. Staff nurse reports no acute events overnight. The patient is breathing on room air. On the monitor, parameters are unremarkable. Laboratory data showed a hemoglobin of 9.7 and hematocrit of 31.3. Platelet count 166. Chemistry panel was notable for a potassium of 3.2 otherwise unremarkable no new imaging for review today. Currently, the patient remains on TPN for nutritional support and is on antibiotic therapy with Merrem, vanco and fluconazole. No other complaint. REVIEW OF SYSTEMS: 12- point system review was carried out, pertinent positive documented above otherwise negative. PHYSICAL EXAM: GENERAL: Critically- ill appearing. HEENT: Sclera non icteric, moist mucosa pupils3 mm echo and sluggish NECK: Supple, no JVD, trachea midline right IJ Cordis LUNGS: Diminished breath sounds bilaterally. No wheezes HEART: Regular rate and rhythm. Normal S1 and S2, without murmurs ABD: Obese abdomen, mid abdomen dressing clean dry and intact. Bilateral BYRON present. Draining serosanguineous EXT: No clubbing cyanosis or edema. Troy in situ NEURO: Awake, alert and follows commands. Vital Signs (last 8hr) Date Time Temp Pulse Resp B/P (MAP) Pulse Ox O2 Delivery O2 Flow Rate FiO2 08/02/24 11:56 97.5 94 17 139/99 136 Room Air 08/02/24 11:22 130 20 N/A Room Air 21 08/02/24 11:20 130 20 LABS: Hematology Labs: Test 08/02/24 03:43 Range/Units White Blood Count 8.0 4.8-10.8 K/uL Red Blood Count 3.61 L 4.00-5.50 MIL/uL Hemoglobin 9.7 #L 12.0-16.0 g/dL Hematocrit 31.3 #L 36-48 % Mean Corpuscular Volume 86.7 79-99 fL Mean Corpuscular Hemoglobin 26.9 L 27.0-33.0 pg Mean Corpuscular Hemoglobin Concent 31.0 L 32.0-36.0 g/dL Red Cell Distribution Width 17.7 H 11.0-15.5 % Platelet Count 166 # 130-400 K/uL Mean Platelet Volume 11.3 H 7.5-10.5 fL Immature Granulocyte % (Auto) 5.1 H 0-1 % Neutrophils (%) (Auto) 69.0 40.0-77.0 % Lymphocytes (%) (Auto) 18.0 L 21.0-51.0 % Monocytes (%) (Auto) 7.2 3.0-13.0 % Eosinophils (%) (Auto) 0.2 0.0-8.0 % Basophils (%) (Auto) 0.5 0.0-5.0 % Neutrophils # (Auto) 5.5 1.8-7.7 K/uL Lymphocytes # (Auto) 1.4 1.0-4.8 K/uL Monocytes # (Auto) 0.6 0.1-1.0 K/uL Eosinophils # (Auto) 0.02 0.00-0.70 K/uL Basophils # (Auto) 0.04 0.00-0.20 K/uL Absolute Immature Granulocyte (auto 0.41 0-1 K/uL Nucleated Red Blood Cells 0.0 0.0-0.19 % Red Blood Cell Morphology ANISO 1+ Chemistry Labs: Test 08/02/24 16:50 08/02/24 03:43 08/01/24 03:22 Range/Units Whole Blood Glucose 298 #H 70-110 MG/DL Sodium Level 142 136-145 mmol/L Potassium Level 3.2 L 3.5-5.1 mmol/L Chloride Level 104 101-111 mmol/L Carbon Dioxide Level 36 H 21-32 mmol/L Blood Urea Nitrogen 24 H 7-18 mg/dL Creatinine 0.6 0.5-1.0 mg/dL Glomerular Filtration Rate Calc 103 >90 mL/min Random Glucose 207 H 70-105 mg/dL Total Calcium 8.2 L 8.5-10.1 mg/dL Lactic Acid Level 1.2 0.8-2.5 mmol/L Phosphorus Level 2.4 L 2.5-4.9 mg/dL Magnesium Level 2.00 1.80-2.40 mg/dL Triglycerides Level 157 30-200 mg/dL Cholesterol Level 132 # <200 mg/dL LDL Cholesterol 84 0-99 mg/dL HDL Cholesterol 29 L 35-85 mg/dL DIAGNOSTICS / RADIOLOGY RESULTS: [ ] PLAN 08/02/2024: For now, going to continue current management for the patient. Per the general surgeon, the NGT was removed and the patient started on clear liquid diet. We will monitor her progress and response to management. I did encourage the patient on continued use of her IS and ambulation. PT is on board and is working with the patient. We will monitor the patient's progress and response to management. We will continue to provide general supportive care, GI and DVT prophylaxis. Further orders per attending MD and hospital course. NEURO: Minimize central acting medications as possible. Maintain fall precautions, adequate lighting during the day PULMONARY: Supplemental 02 as needed. Maintain aspiration precautions at all times CARDIOVASCULAR: Follow hemodynamics. Vital signs per facility protocol GI & NUTRITION: Continue with nutritional support. Continue stool softeners and laxatives as needed. KIDNEYS & ELECTROLYTES: Strict monitoring of intake, output and overall fluid balance. Avoid nephrotoxic medications to the extent possible. Medications to be dosed according to renal function. Monitor electrolytes and replace as needed ENDOCRINE: Maintain blood glucose between 100-180 at all times. Hypoglycemia protocol in place INFECTIOUS DISEASE: Trend temperature, WBC and procalcitonin level Follow cultures, deescalate antibiotics as soon as possible. Panculture if new onset fever ONCOLOGY/HEMATOLOGY/COAGULATION: Monitor for s/s of bleeding Monitor hemoglobin, coagulation studies as needed SKIN: Pressure ulcer prevention per facility protocol Specialty mattress ORTHO/REHAB: Continue PT/OT Prophylaxis: Continue GI and DVT prophylaxis Code Status: Full Resuscitation Disposition: TBD Other: Patient was seen and case discussed with gene CHAUDHARI. Plan of care was discussed and agreed upon. ASHER ALVAREZ NP August 02, 2024 17:01
--- NOTE | 2024-08-02 19:45 | PN ---
INFECTIOUS DISEASE FOLLOWUP NOTE DATE OF SERVICE: 08/02/2024. SUBJECTIVE: The patient is seen and examined at bedside today. The patient has no fever, no chills. The patient has been started on clear liquid diet. Abdominal pain is well controlled. No chest pain, no palpitations or orthopnea. No cough. Denied dysuria or hematuria. Bedbound debility. OBJECTIVE: VITAL SIGNS: Temperature 98.4. EYES: No icterus. Pupils equal and reactive. HENT: No oral thrush seen. Moist oral mucosa. NECK: Supple. No JVD or thyromegaly. LUNGS: Good air entry. No rales. No rhonchi. CARDIOVASCULAR: S1, S2, regular. No murmur heard. ABDOMEN: Obese, soft. Bowel sound is present. Midline surgical incision. CENTRAL NERVOUS SYSTEM: Awake, alert, oriented x 3. Bedbound debility. SKIN: No rashes, no itchiness. LYMPHATIC: No peripheral lymphadenopathy. BACK: No deformity, no pressure ulcer . HEMATOLOGIC: No bleeding or petechial lesions present. GENITOURINARY: Troy catheter in place, no hematuria. ASSESSMENT: A 59-year-old female with multiple problems including: * Septic shock. * Intestinal perforation, status post exploratory laparotomy. * Intraabdominal abscess, status post open drainage. * Peritonitis. * Morbid obesity. * Polymicrobial infection. * History of colitis. PLAN: * Continue wound care. * Continue . * Continue fluconazole. * Continue vancomycin. * Continue pain management. * Continue DVT prophylaxis. * Monitor electrolytes. TID: [id number] RECEIPT: [id number]
[2024-08-03] VITALS (14 sets, daily range): BP systolic 94–135; BP diastolic 62–86; PULSE 63–115; RESP 17–24; TEMP 97.3–98.8; O2SAT 94–95
[2024-08-03 05:12] LABS: BASOPHILS # (AUTO) 0.02 K/uL (0.00-0.20); BASOPHILS % (AUTO) 0.1 % (0.0-5.0); HEMATOCRIT 29.6 % (36-48); IMMATURE GRANULOCYTE ABSOLUTE 0.33 K/uL (0-1); LYMPHOCYTES # (AUTO) 1.8 K/uL (1.0-4.8); LYMPHOCYTES % (AUTO) 6.5 % (21.0-51.0); MEAN CORPUSCULAR HEMOGLOBIN 27.3 pg (27.0-33.0); MEAN CORPUSCULAR HGB CONC 29.4 g/dL (32.0-36.0); MEAN CORPUSCULAR VOLUME 92.8 fL (79-99); MONOCYTES # (AUTO) 0.7 K/uL (0.1-1.0); MONOCYTES % (AUTO) 2.6 % (3.0-13.0); NEUTROPHILS # (AUTO) 24.3 K/uL (1.8-7.7); NEUTROPHILS % (AUTO) 89.6 % (40.0-77.0); PLATELET COUNT (AUTO) 185 K/uL (130-400); RED BLOOD CELL COUNT(AUTO) 3.19 MIL/uL (4.00-5.50); RED CELL DISTRIBUTION WIDTH 18.4 % (11.0-15.5); WHITE BLOOD COUNT (AUTO) 27.1 K/uL (4.8-10.8)
[2024-08-03 06:00] LABS: WBC MORPHOLOGY CONSISTENT W/DIFF
[2024-08-03 06:09] LABS: CREATININE 0.7 mg/dL (0.5-1.0); POTASSIUM 4.1 mmol/L (3.5-5.1)
[2024-08-03 06:12] LABS: VANCOMYCIN TROUGH 26.3 UG/ML (10.0-20.0)
[2024-08-03 07:10] LABS: HEMATOCRIT 35.6 % (36-48); MEAN CORPUSCULAR HEMOGLOBIN 26.9 pg (27.0-33.0); MEAN CORPUSCULAR HGB CONC 31.5 g/dL (32.0-36.0); MEAN CORPUSCULAR VOLUME 85.6 fL (79-99); NUCLEATED RED BLOOD CELLS 0.1 % (0.0-0.19); PLATELET COUNT (AUTO) 207 K/uL (130-400); RED BLOOD CELL COUNT(AUTO) 4.16 MIL/uL (4.00-5.50); RED CELL DISTRIBUTION WIDTH 17.8 % (11.0-15.5)
[2024-08-03 07:14] LABS: WHITE BLOOD COUNT (AUTO) 34.4 K/uL (4.8-10.8)
--- NOTE | 2024-08-03 07:18 | NUR ---
critical result WBC:34.4 H&H: 11 AWARE Addendum: 08/03/24 at 0719 by FAREED HUTCHISON LVN LVN Amended: Links added.
--- NOTE | 2024-08-03 07:45 | NUR ---
MD ROUNDS DR. HOWELL ON ROUNDS, MADE AWARE OF THE ELEVATED WBC COUNT FROM THIS AM. WENT TO SEE THE PT AT THE BEDSIDE, OPENED THE SURGICAL INCISION TO INSPECT THE WOUND. OPERATIVE INCISION CLEAN AND DRY, LORRIE INTACT. NO SIGNS OF INFECTION NOTED, INCISION HEALING WELL. MD ORDERED TO KEEP THE OPERATIVE INCISION OPEN TO AIR AND JUST KEEP THE DRESSINGS AROUND BOTH BYRON DRAINS. MD ORDERED TO START THE PATIENT ON TELEMETRY MONITORING CONSIDERING THE ABNORMAL INCREASE IN THE WBC COUNT THIS AM. ORDERED FOR A LACTIC ACID LAB AND TO MONITOR THE PT CLOSELY.
--- NOTE | 2024-08-03 08:29 | NUR ---
CRITICAL RESULT LACTIC ACID:2.5 Addendum: 08/03/24 at 0830 by FAREED HUTCHISON LVN LVN Amended: Links added.
[2024-08-03 08:36] LABS: LYMPHOCYTES % (MANUAL) 2 % (22-44); MONOCYTES % (MANUAL) 1 % (2-9); MYELOCYTES % 2 % (0-0); SEGMENTED NEUTROPHILS % 95 % (40-70); TOTAL CELLS COUNTED 100
[2024-08-03 08:37] LABS: MAN.DIFF COMMENT-IMPRESSION MANUAL DIFFERENTIAL; PLATELET MORPHOLOGY COMMENT ADEQUATE; WBC MORPHOLOGY IMMATURE GRAN 1+
--- NOTE | 2024-08-03 10:17 | HMCIMG ---
CT ABDOMEN/PELVIS W/O CONTRAST HISTORY: Recurrent abdominal abscess COMPARISON: 07/25/2024 TECHNIQUE: Multiple sequential axial images of the abdomen and pelvis were obtained from the dome of the diaphragm through symphysis pubis. Patient was not given contrast through intravenous route. Oral contrast was not given. FINDINGS: No pleural effusion is seen bilaterally. Bibasilar atelectasis changes are seen. There is no evidence of parenchymal disease or pulmonary nodule of the visualized lower lungs. Degenerative changes of the thoracolumbar spine are present. The heart is not enlarged. There is free intraperitoneal air with drainage tube. Gastric distention is seen. Mesenteric fat stranding seen. Small bowel dilatation is seen. Findings were present on previous study may be related to postoperative changes versus bowel perforation. Complex ascites fluid is also seen. Clinical correlation is recommended. The liver, spleen, adrenal glands and pancreas are unremarkable. There is no evidence of hydronephrosis bilaterally. No evidence of renal stone is seen. Fecal material is seen in the colon. There are normal size retroperitoneal and mesenteric lymph nodes. There is complex ascites. Atherosclerotic changes are present. Pelvic sidewalls are symmetric bilaterally. Bladder is well distended without wall thickening. IMPRESSION: 1. There is free intraperitoneal air with drainage tube. Mesenteric fat stranding seen. Small bowel dilatation is seen. Findings were present on previous study may be related to postoperative changes versus bowel perforation. Complex ascites fluid is also seen which is increased from previous study. Clinical correlation is recommended. CT was performed with one or more following dose reduction techniques: automated exposure control, adjustment of the mA and kv according to patient's size, or use of a iterative reconstruction technique.
--- NOTE | 2024-08-03 10:40 | NUR ---
CHANDA MARROQUIN AT BEDSIDE. ORDERED PROCALCITONIN.
[2024-08-03] MEDS ORDERED: PHARMACY COMMUNICATION MISC SCH ×2 (11:00)
[2024-08-03] MEDS ORDERED: PHARMACY COMMUNICATION 1 EACH EACH MISC SCH (11:00)
--- NOTE | 2024-08-03 11:28 | NUR ---
CHANDA VIA TELEPHONE. PROCALCITONIN LEVEL NOTIFICATION Addendum: 08/03/24 at 1129 by FAREED HUTCHISON LVN LVN Amended: Links added.
--- NOTE | 2024-08-03 12:18 | PN ---
[facility] PROGRESS NOTE Date of Service: August 03, 2024 Time of Service: 12:13 SUBJECTIVE: 59-year-old female the past medical history of hypertension who presented to the hospital secondary to abdominal pain. Patient stated for the past 3-4 days she has been having increasing abdominal pain with abdominal distention. She was feeling nauseated and had episodes of emesis at home. She denied any hematemesis, melena, hematochezia. Patient was previously hospitalized in [facility] around one month ago secondary to colitis. GI was consulted during admission and patient underwent colonoscopy with findings showing severe inflammation of the entire colon concerning for pancolitis. She was treated with IV steroids and and was to start patient on Remicade as outpatient. She denied any fever, chills, diarrhea. She was going to follow up with GI as outpatient on 07/26/24 but had worsening pain which caused her to come to the hospital for further evaluation. Labs in the ED were notable for white count of 10.3, hemoglobin was 12.8, platelet count was 363 K, sodium was 138, potassium was 2.8, creatinine is 1.0, blood glucose was 269, lactic acid on presentation was 8.[address] abdomen pelvis which showed free intraperitoneal air concerning for bowel perforation. There is a anterior ventral wall hernia with bowel content and air collection and fat stranding concerning for bowel perforation. Her colon was also noted to be inflamed. CT was performed without contrast. 07/26 BP 135/83, tachycardic 102, saturating 100% 2 L nasal cannula. CBC shows hemoglobin 11.0, hematocrit 35.9, WBC 18.8, platelet count of 203. Sodium 141, potassium 3.7, BUN of 29, creatinine slightly worse today at 1.2. ABG with pH 7.51, pCO2 of 28, PO2 62.6, bicarb of 22.5. Serology to include influenza, SARS and group A negative. Results of chest x-ray pending. Patient is scheduled to be taken to the OR today. 07/27 the patient remains admitted to the intensive care unit, intubated, on mechanical ventilation, status post exploratory laparotomy, postoperative day one, case discussed with the RN, patient on propofol, Jose Armando-Synephrine, wound VAC to the abdomen in place, noted to have right IJ line in place. Getting broad- spectrum IV antibiotics. Blood pressure 130/79, heart rate of 83, saturating 100% on mechanical ventilation, FiO2 40%. Leukocytosis is worse today at 28.1, drop in hemoglobin to 9.7, hematocrit 30.8, with a platelet count of 148. Potassium level 3.6, magnesium 1.6. Lactic acid from 8.2 down to 1.8 ABG with pH 7.4, pCO2 34, PO2 145, bicarb of 20. Chest x-ray shows bilateral lower lung infiltrates. Family at Bedside, updated 07/28 the patient has been seen and examined in the intensive care unit, she remains intubated, mechanical ventilation, on fentanyl, propofol and Jose Armando- Synephrine, getting broad-spectrum antibiotics, BP 112/84, afebrile, saturating 100% on mechanical ventilation, FiO2 40%. CBC with a hemoglobin 8.4, hematocrit 27.8, WBC of 16.3, platelet count of 89. Patient is status post exploratory laparotomy with drainage of intra-abdominal abscess/ventral hernia repair/small- bowel resection/NS of adhesions/left open and wound VAC on 07/23 05/28 by General surgery. Results of septic workup reviewed, Gram-negative rods. Patient with a possible ischemic colitis, plan to take the patient back to the operating room for further exploration. 07/29 Pt seen at bedside, no acute events overnight. She is s/p ex-lap with cholecystectomy. Currently on pressors, will wean as able. Remains intubated, PEEP 5, FiO2 30%, will continue with daily sedation vacations. She is mildly tachycardic. She is NPO, continue TPN per general surgery. WBC increased from 16.3 up to 16.8, Hgb improved from 8.4 up to 8.6, platelets decreased from 89 d own to 76 07/30 Pt seen at bedside, no acute events overnight. She is s/p ex-lap with small bowel resection, appendectomy and drainage of intraabdominal abscess with wound vac post op day 4, repeat ex-lap with cholecystectomy, repair of left flank and ventral hernias post op day 2. Currently on pressors, will wean as able. Remains intubated, PEEP 5, FiO2 30%, she was on sedation vacation, in no acute distress, possible extubation today, will defer to critical care. She is NPO, continue TPN per general surgery. WBC improved from 16.8 down to 10.6, Hgb stable at 8.3, similar to yesterday, platelets improved from 76 up to 90, sabra kirt of her labs are relatively unremarkable. 07/31 patient seen at bedside, no acute events overnight. She is status post ex lap with small-bowel resection, appendectomy and drainage of intra-abdominal abscess with wound VAC postop day five, repeat ex lap with cholecystectomy, repair of left flank and ventral hernias postop day three. She has been successfully extubated, we will continue to try and wean pressors. Hemoglobin stable at 7.2, similar to yesterday, platelets decreased from 119-98, potassium mildly low at 3.2, we will be repleted according to protocol, remainder of her labs are relatively unremarkable. 08/02 patient seen at bedside, no acute events overnight. She is status post ex lap with small-bowel resection, appendectomy and drainage of intra-abdominal abscess with wound VAC postop day 6 repeat ex lap with cholecystectomy, repair of left flank and ventral hernias postop day 4. She has been successfully extubated, and weaned off pressors. She was transfused yesterday, Hgb improved from 6.9 up to 9.7, platelets improved to 166, potassium mildly low at 3.2, we will be repleted according to protocol, remainder of her labs are relatively unremarkable. She continues on TPN, diet to be addressed by general surgery. Only complaint is continued xuan-incisional pain 08/03 patient seen at bedside, no acute events overnight. At bedside she is in no acute distress, she has no complaints. She is status post ex lap with small- bowel resection, appendectomy and drainage of intra-abdominal abscess with wound VAC postop day 7 repeat ex lap with cholecystectomy, repair of left flank and ventral hernias postop day 5. WBC increased from 8.0 up to 27.1, this seemed to be and anomaly so a repeat CBC was ordered and WBC increased again to 34.4. Patient has been bolused 1 L of LR, repeat lactic acid was ordered and was mildly elevated at 2.5, wounds were examined at bedside and found to be clean dry and intact with no drainage or erythema. The BYRON drains are still draining serosanguineous fluid there does not appear to be sick succus suggesting bowel perforation. Discussed case with General surgery and Infectious Disease, we agreed to order a CT scan of the abdomen/pelvis to determine if there is a new abscess forming. Patient has not had watery bowel movements to suggest C diff and she is already on fluconazole. Hemoglobin increased from 8.7 up to 11.2, remainder of her labs are relatively unremarkable. Antibiotics were adjusted to Zyvox and meropenem. Further recommendations per Infectious Disease and General surgery. REVIEW OF SYSTEMS 12 point ROS negative unless noted in HPI PHYSICAL EXAM GENERAL APPEARANCE: Patient intubated, on mechanical ventilation. NEUROLOGICAL: Cranial nerves II-XII grossly intact. Motor is 5/5 in bilateral upper and lower extremities proximal to distal. No sensory deficits. HEENT: Face is symmetric. Pupils are equal and reactive. Extraocular movements are intact. NECK: Supple. No JVD. No thyromegaly. No submental, submandibular, pre-/postauricular, occipital or supraclavicular lymphadenopathy. CHEST: Normal chest expansion. No Telemetry. LUNGS: Absence of any rales, rhonchi or any wheezing. CARDIOVASCULAR: Regular. S1 and S2 normal. No appreciable rubs, murmurs or gallops. ABDOMEN: Abdominal wound VAC in place : Deferred. No [place]. EXTREMITIES: Non-edematous and not cyanotic. No clubbing. Good capillary refill. SKIN: No skin breakdown. Vital Signs (last 8hr) Date Time Temp Pulse Resp B/P (MAP) Pulse Ox O2 Delivery O2 Flow Rate FiO2 08/03/24 12:00 97.3 110 17 130/78 98 Room Air 08/03/24 11:42 103 18 08/03/24 11:42 103 18 N/A Room Air 21 08/03/24 09:35 114 122/77 08/03/24 08:00 98.8 114 17 122/77 95 Room Air 08/03/24 06:33 111 18 08/03/24 06:32 111 18 N/A Room Air 21 LABS: Laboratory: Test 08/03/24 11:54 08/03/24 11:50 08/03/24 08:07 08/03/24 05:45 Range/Units Whole Blood Glucose 111 H 70-110 MG/DL Lactic Acid Level 1.9 0.8-2.5 mmol/L Procalcitonin 1.71 H 0.05-0.5 ng/mL White Blood Count 34.4 #*H 4.8-10.8 K/uL Red Blood Count 4.16 # 4.00-5.50 MIL/uL Hemoglobin 11.2 #L 12.0-16.0 g/dL Hematocrit 35.6 #L 36-48 % Mean Corpuscular Volume 85.6 79-99 fL Mean Corpuscular Hemoglobin 26.9 L 27.0-33.0 pg Mean Corpuscular Hemoglobin Concent 31.5 L 32.0-36.0 g/dL Red Cell Distribution Width 17.8 H 11.0-15.5 % Platelet Count 207 130-400 K/uL Mean Platelet Volume 12.2 H 7.5-10.5 fL Segmented Neutrophils % 95 H 40-70 % Lymphocytes % (Manual) 2 L 22-44 % Monocytes % (Manual) 1 L 2-9 % Myelocytes % 2 H 0-0 % Nucleated Red Blood Cells 0.1 0.0-0.19 % Differential Comment MANUAL DIFFERENTIAL White Cell Morphology Comment IMMATURE GRAN 1+ Platelet Morphology Comment ADEQUATE Red Blood Cell Morphology See comments Sodium Level 138 136-145 mmol/L Potassium Level 4.1 3.5-5.1 mmol/L Chloride Level 101 101-111 mmol/L Carbon Dioxide Level 31 21-32 mmol/L Blood Urea Nitrogen 46 H 7-18 mg/dL Creatinine 0.7 0.5-1.0 mg/dL Glomerular Filtration Rate Calc 99 >90 mL/min Random Glucose 235 H 70-105 mg/dL Total Calcium 8.6 8.5-10.1 mg/dL Vancomycin Level Trough 26.3 #*H 10.0-20.0 UG/ML Test 08/03/24 05:05 08/02/24 03:43 Range/Units Immature Granulocyte % (Auto) 1.2 H 0-1 % Neutrophils (%) (Auto) 89.6 H 40.0-77.0 % Lymphocytes (%) (Auto) 6.5 L 21.0-51.0 % Monocytes (%) (Auto) 2.6 L 3.0-13.0 % Eosinophils (%) (Auto) 0.0 0.0-8.0 % Basophils (%) (Auto) 0.1 0.0-5.0 % Neutrophils # (Auto) 24.3 H 1.8-7.7 K/uL Lymphocytes # (Auto) 1.8 1.0-4.8 K/uL Monocytes # (Auto) 0.7 0.1-1.0 K/uL Eosinophils # (Auto) 0.00 0.00-0.70 K/uL Basophils # (Auto) 0.02 0.00-0.20 K/uL Absolute Immature Granulocyte (auto 0.33 0-1 K/uL Vancomycin Level 16.4 L 20.0-30.0 mcg/mL Current Medications Medications (Trade) Dose Ordered Sig/Alexandra Route PRN Reason Start Time Stop Time Status Last Admin Dose Admin Albumin Human 100 ml @ 50 mls/hr AD IV 07/28/24 08:00 07/31/24 07:59 DC Cefepime HCl (MAXipime 2 gm vial) 2 gm Q24H IVPB 07/26/24 22:00 07/27/24 14:55 DC 07/26/24 22:54 2 GM Dexmedetomidine/ Sodium Chloride (PRECEdex 400MCG/ 100ML-NS) 400 mcg PROTOCOL PRN IV agitation 07/29/24 14:00 08/28/24 13:59 07/30/24 01:18 400 MCG Dextrose (D50w) 50 ml AD PRN IV HYPOGLYCEMIA PROTOCOL 07/27/24 16:00 08/26/24 15:59 Famotidine (Pepcid 20mg Vial) 20 mg Q24H IV 07/25/24 21:00 08/24/24 20:59 08/02/24 20:42 20 MG Fat Emulsion Intravenous 250 ml @ 42 mls/hr QMOFR IV 07/29/24 09:00 08/28/24 08:59 08/02/24 11:51 42 MLS/HR Fentanyl Citrate 100 ml @ 0 mls/hr PROTOCOL IV 07/26/24 13:30 07/27/24 12:04 DC Fentanyl Citrate 100 ml @ 0 mls/hr PROTOCOL IV 07/27/24 12:30 07/29/24 13:42 DC 07/29/24 02:03 5 MLS/HR Fentanyl/Sodium Chloride 250 ml @ 0.1 mls/hr PROTOCOL IV 07/27/24 12:00 07/27/24 12:05 DC Fluconazole/ Sodium Chloride 100 ml @ 100 mls/hr Q24H IV 07/26/24 13:30 08/25/24 13:29 08/02/24 13:54 100 MLS/HR Furosemide (LASix 20MG VIAL) 20 mg Q8H IV 07/28/24 15:30 08/27/24 15:29 08/03/24 06:42 20 MG Glucagon (Glucagon 1mg Kit) 1 mg AD PRN IM HYPOGLYCEMIA PROTOCOL 07/27/24 16:00 08/26/24 15:59 Hydromorphone HCl (DiLAUDid 0.5MG INJ) 0.5 mg Q4H PRN IVP SEVERE PAIN (7-10) 07/29/24 14:00 08/03/24 13:59 08/02/24 11:44 0.5 MG Insulin Glargine (LANtus 100 UNITS/ML 10 ML VIAL) 5 units HS SQ 07/27/24 21:00 07/29/24 09:47 DC 07/28/24 20:48 5 UNITS Insulin Glargine (LANtus 100 UNITS/ML 10 ML VIAL) 15 units BID SQ 07/29/24 21:00 08/28/24 20:59 08/03/24 09:26 15 UNITS Insulin Glargine (LANtus 100 UNITS/ML 10 ML VIAL) 15 units HS SQ 07/29/24 21:00 07/29/24 13:43 DC Insulin Human Regular (humuLIN R 100 UNIT/ML 3ML) INSULIN SLIDING SCAL... Q6H6 SQ 07/26/24 00:00 08/25/24 00:00 08/03/24 06:42 4 UNIT Ipratropium [place] (AtrovENT UD) 0.5 mg [id number] IH 07/30/24 18:00 08/29/24 17:59 08/03/24 11:41 0.5 MG Linezolid 300 ml @ 150 mls/hr Q12H IV 08/03/24 13:00 08/13/24 12:59 Magnesium Sulfate 50 ml @ 0 mls/hr PROTOCOL PRN IV hypomagnesemia 07/25/24 18:00 08/24/24 17:59 07/31/24 17:23 25 MLS/HR Meropenem (Merrem 1gm) 1 gm Q12H IVPB 07/27/24 15:30 08/03/24 03:31 DC 08/03/24 03:31 1 GM Meropenem (Merrem 1gm) 1 gm Q12H IVPB 08/03/24 15:30 08/10/24 03:31 Metoprolol Tartrate (loprESSOR) 2.5 mg Q12H9 IV 07/31/24 21:00 08/30/24 20:59 08/03/24 09:35 2.5 MG Midazolam HCl 50 ml @ 0 mls/hr PROTOCOL IV 07/26/24 13:30 07/29/24 13:42 DC Nystatin (MycoSTATin 30 GM CREAM) 1 APPL BID TP 07/31/24 21:00 08/30/24 20:59 08/03/24 09:24 1 APPL Ondansetron HCl (zoFRAN 4MG INJ) 4 mg Q6H PRN IVP NAUSEA/VOMITING 07/25/24 18:00 08/24/24 17:59 07/31/24 20:34 4 MG Pharmacy Profile Note (Lace Assessment) 1 each AD MISC 07/27/24 15:30 07/27/24 15:14 DC Pharmacy Profile Note (Lace Assessment) 1 each AD MISC 08/03/24 11:00 08/03/24 11:10 DC Pharmacy Profile Note (Pharmacy Communication) 1 each ONCE MISC 07/27/24 15:00 07/28/24 07:29 DC Pharmacy Profile Note (Pharmacy Communication) 1 each ONCE MISC 08/03/24 11:00 08/03/24 11:47 DC Pharmacy Profile Note (Pharmacy Communication) 1 each ONCE MISC 08/03/24 11:00 08/03/24 11:53 DC Phenol (Sore Throat [place]) 1 spry Q4H PRN PO SORE THROAT 08/01/24 05:00 08/31/24 04:59 08/03/24 10:19 1 SPRY Phenylephrine HCl 100 mg/Sodium Chloride 250 ml @ 0 mls/hr AD PRN IV TITRATE 07/26/24 13:30 08/25/24 13:29 07/30/24 04:41 9.52 MLS/HR Piperacillin Sod/ Tazobactam Sod (Zosyn 3.375gm+NS 50ml) 3.375 gm Q12H IV 07/25/24 20:00 07/25/24 17:27 DC Piperacillin Sod/ Tazobactam Sod (Zosyn 3.375gm+NS 50ml) 3.375 gm Q8H IVPB 07/25/24 19:00 07/26/24 21:40 DC 07/26/24 19:40 3.375 GM Piperacillin Sod/ Tazobactam Sod (Zosyn 3.375gm+NS 50ml) 3.375 gm Q8H IVPB 07/25/24 20:00 07/25/24 18:49 DC Potassium Chloride 100 ml @ 50 mls/hr AD PRN IV POTASSIUM PROTOCOL 07/25/24 18:00 08/24/24 17:59 08/02/24 20:42 50 MLS/HR Propofol 100 ml @ 0 mls/hr AD PRN IV TITRATE 07/26/24 13:30 07/29/24 13:42 DC 07/29/24 02:49 12.2 MLS/HR Sodium Chloride 1,000 ml @ 125 mls/hr Q8H IV 07/25/24 17:30 07/27/24 16:01 DC 07/27/24 07:58 125 MLS/HR Sodium Chloride (NS 50ml) 50 ml AD IV 07/25/24 17:00 07/25/24 17:29 DC Vancomycin HCl 250 ml @ 125 mls/hr Q12H IV 07/31/24 04:00 08/02/24 04:37 DC 08/01/24 03:10 125 MLS/HR Vancomycin HCl 250 ml @ 125 mls/hr Q12H IV 08/02/24 05:00 08/03/24 11:09 DC 08/02/24 17:22 125 MLS/HR Vancomycin HCl 250 ml @ 125 mls/hr Q24H IV 07/26/24 17:00 07/27/24 15:09 DC 07/26/24 19:55 125 MLS/HR Vancomycin HCl (Vancomycin Protocol) 1 each AD IV 07/25/24 17:00 07/27/24 14:55 DC Vancomycin HCl (Vancomycin Protocol) 1 each AD IV 07/30/24 15:00 08/03/24 11:09 DC Wound Care/ Dressing Products (Venelex Ointment) BID TP 07/31/24 21:00 08/30/24 20:59 08/03/24 09:24 1 GM DIAGNOSTICS / RADIOLOGY: [ ] ASSESSMENT: Septic shock requiring pressors Bacterial peritonitis POA Bowel perforation w/ [id number] S/P exploratory laparotomy with drainage of intra-abdominal abscess/ventral hernia repair/small-bowel resection/NS of adhesions/left open and a wound VAC on 07/26/24 per High risk for ischemic bowel-POA Intractable abdominal pain-POA Acute hypokalemia-POA this is Dehydration-POA SHARMILA not POA Lactic acidosis-POA Hyperglycemia 2/2 uncontrolled diabetes mellitus Primary HTN HX of colitis HX of inflammatory bowel disease (Crohn's Disease) HX of cardiac arrest HX of BLE cellulitis Recent hospitalization for UTI with outpatient Zosyn antibiotic with Dr. Diaz PLAN: The patient remains admitted to the intensive care unit Continue pressors, wean as tolerated Continue TPN Critical Care consulted, follow input and recommendation Continue to follow surgical input and recommendation. Diet per general surgery recommendations Discontinue vancomycin Start linezolid Continue meropenem CT of the abdomen/pelvis to assess for underlying abscess Bolus 1 L LR Trend lactic acid Prognosis is guarded Disposition: Pending improvement in clinical condition FRANSICO HOWELL MD August 03, 2024 12:18
--- NOTE | 2024-08-03 12:19 | PN ---
[facility] PROGRESS NOTE Date Patient Seen: August 03, 2024 Time of Visit: 12:11 Supervising Physician: [Dr. Kearney] Primary Care Physician: [Dr. Villarreal of [facility] ] Outpatient Specialists: [GI: Dr. Solitario ] Inpatient Consults: [Dr. Quintero of surgery ] PROBLEM LIST: Septic shock from below requiring pressors,resolving Bacterial peritonitis POA + Enterococcus Raffinosus and Klebsiella pneumoniae Bowel perforation w/ Pneumoperitoneum-POA S/P exploratory laparotomy with drainage of intra-abdominal abscess/ventral hernia repair/small-bowel resection/lysis of adhesions/left open and a wound VAC on 07/26/24 per Removal of previously placed ABThera wound VAC & Placement of Seprafilm adhesion barrier 07/28/24 per Incarcerated ventral hernia POA Primary repair ventral hernia 07/28/24 Left Lateral Hernia POA Primary repair left flank hernia 07/28/24 Acute cholecystitis, POAopen cholecystectomy on 07/28/24 High risk for ischemic bowel-POA Acute hypokalemia-POA Dehydration-POA SHARMILA not POA Lactic acidosis-POA Hyperglycemia 2/2 uncontrolled diabetes mellitus Primary HTN HX of colitis HX of inflammatory bowel disease (Crohn's Disease) Recent hospitalization for UTI with outpatient Zosyn antibiotic with Dr. Diaz INTERVAL HISTORY: This is Day 1 open cholecystectomy with removal of previously placed ABTHera wound VAC, placement of ceftriaxone home adhesion barrier, primary repair of left flank hernia and repair of ventral hernia per . no further plans of taking pt back to OR per report. Per RN no major overnight event. Patient is on sedation vacation this morning still 117 to wake up grimaces to movement. Will attempt CPAP this morning. Weaning Jose Armando-Synephrine currently yesterday 0.1 mcg/kg per minute. Lines: Right IJ Cordis, arterial line, OG tube, ET tubes, Troy catheter, DP is. Left BYRON drain 320 mL with red BYRON draining 120 mL. She remains NPO on TPN at 75 mL/hour. Urine output of 3.6 L,-1.9 L balance Patient's problems has been updated of plan of care and verbalizes understanding . He continues IV antibiotics. Intra-abdominal fluid culture growing positive for Klebsiella pneumoniae and Enterococcus Raffinosus. White count is 9.8 similar to yesterday, H&H stable 8.61/28.5 platelet count trending down 76 K today. Creatinine of 0.7 with GFR of 99 kidneys are improved. Magnesium of 1.7 covered per protocol. Blood sugar of 311 mg/dL insulin adjusted. X-ray stable. ET tube 4.4 cm with the ld. No pneumothorax. 07/30/2024: At the time of my evaluation, the patient was lying in bed. She remains intubated and on mechanical vent support. On the monitor, the patient was marginally tachycardic, tachypneic and blood pressure within normal ranges. Laboratory data today showed improved WBC down to 10.6 there was no profound anemia or thrombocytopenia. Chemistry panel showed no major electrolyte derangement or renal parameter changes. No new microbiology data for review today. Chest imaging showed bilateral pneumonic infiltrates and cardiomegaly. No other complaint. 07/31/2024: At the time of my evaluation, the patient was lying in bed. Family member and staff nurse are present at the bedside. Per the staff nurse, no acute events overnight. On the monitor, the patient had no febrile events, no tachycardia or tachypnea. Blood pressure between normal range and she remains on nasal cannula for oxygen supplementation. Laboratory data today , showed no leukocytosis, there was significant anemia 7.3/23.5 and platelet count of 119. No chemistry was collected for today. Imaging for today still shows pulmonary vascular congestion and pneumonic infiltrates bilaterally. Troy catheter remains in place and patient had a documented urinary output of 2700 mL and a net balance of -28.0. No other complaint 08/01/2024: At the time of my evaluation, the patient was lying in bed. Staff nurse reports no acute events overnight. On the monitor, the patient is with borderline tachycardia, no tachypnea and normotensive. She remains on a nasal cannula for oxygen supplementation. Surgical site, is benign. BYRON drain x2 totaling 335 mL out voided output of 4800 mL over the past 24 hours with a net balance of -2585.1. Laboratory data today did show a drop in H&H to 7.1/23.4 and a platelet count of 111. Chemistry panel showed a potassium of 3.2, renal parameters were not of concern. No new microbiology data for review. Chest x- ray today showed bilateral pneumonic infiltrate and a right mid lung atelectasis. There was also borderline cardiomegaly. Currently, the patient remains on antibiotic coverage with meropenem, fluconazole and vancomycin. She is also on nutritional support with TPN. No other complaint. 08/02/2024: At the time of my evaluation, the patient was lying in bed. Staff nurse reports no acute events overnight. The patient is breathing on room air. On the monitor, parameters are unremarkable. Laboratory data showed a hemoglobin of 9.7 and hematocrit of 31.3. Platelet count 166. Chemistry panel was notable for a potassium of 3.2 otherwise unremarkable no new imaging for re view today. Currently, the patient remains on TPN for nutritional support and is on antibiotic therapy with Merrem, vanco and fluconazole. No other complaint. 08/03 patient is evaluated at bedside. Her WBCs significantly increased to 27 then 34 up from eight yesterday. Her hemoglobin has remained stable at 11.2. No fever overnight. Her BYRON drain has normal serous fluid with minimal output since yesterday. She is pending a repeat CT abdomen. General surgery is aware, pending further recommendation. Patient states her pain is actually improved from yesterday. REVIEW OF SYSTEMS: 12- point system review was carried out, pertinent positive documented above otherwise negative. PHYSICAL EXAM: GENERAL: Critically- ill appearing. HEENT: Sclera non icteric, moist mucosa pupils3 mm echo and sluggish NECK: Supple, no JVD, trachea midline right IJ Cordis LUNGS: Diminished breath sounds bilaterally. No wheezes HEART: Regular rate and rhythm. Normal S1 and S2, without murmurs ABD: Obese abdomen, mid abdomen dressing clean dry and intact. Bilateral BYRON present. Draining serosanguineous EXT: No clubbing cyanosis or edema. Troy in situ NEURO: Awake, alert and follows commands. Vital Signs (last 8hr) Date Time Temp Pulse Resp B/P (MAP) Pulse Ox O2 Delivery O2 Flow Rate FiO2 08/03/24 11:42 103 18 08/03/24 11:42 103 18 N/A Room Air 21 08/03/24 09:35 114 122/77 08/03/24 08:00 98.8 114 17 122/77 95 Room Air 08/03/24 06:33 111 18 08/03/24 06:32 111 18 N/A Room Air 21 LABS: Hematology Labs: Test 08/03/24 05:45 08/03/24 05:05 Range/Units White Blood Count 34.4 #*H 4.8-10.8 K/uL Red Blood Count 4.16 # 4.00-5.50 MIL/uL Hemoglobin 11.2 #L 12.0-16.0 g/dL Hematocrit 35.6 #L 36-48 % Mean Corpuscular Volume 85.6 79-99 fL Mean Corpuscular Hemoglobin 26.9 L 27.0-33.0 pg Mean Corpuscular Hemoglobin Concent 31.5 L 32.0-36.0 g/dL Red Cell Distribution Width 17.8 H 11.0-15.5 % Platelet Count 207 130-400 K/uL Mean Platelet Volume 12.2 H 7.5-10.5 fL Segmented Neutrophils % 95 H 40-70 % Lymphocytes % (Manual) 2 L 22-44 % Monocytes % (Manual) 1 L 2-9 % Myelocytes % 2 H 0-0 % Nucleated Red Blood Cells 0.1 0.0-0.19 % Differential Comment MANUAL DIFFERENTIAL White Cell Morphology Comment IMMATURE GRAN 1+ Platelet Morphology Comment ADEQUATE Red Blood Cell Morphology See comments Immature Granulocyte % (Auto) 1.2 H 0-1 % Neutrophils (%) (Auto) 89.6 H 40.0-77.0 % Lymphocytes (%) (Auto) 6.5 L 21.0-51.0 % Monocytes (%) (Auto) 2.6 L 3.0-13.0 % Eosinophils (%) (Auto) 0.0 0.0-8.0 % Basophils (%) (Auto) 0.1 0.0-5.0 % Neutrophils # (Auto) 24.3 H 1.8-7.7 K/uL Lymphocytes # (Auto) 1.8 1.0-4.8 K/uL Monocytes # (Auto) 0.7 0.1-1.0 K/uL Eosinophils # (Auto) 0.00 0.00-0.70 K/uL Basophils # (Auto) 0.02 0.00-0.20 K/uL Absolute Immature Granulocyte (auto 0.33 0-1 K/uL Chemistry Labs: Test 08/03/24 11:54 08/03/24 11:50 08/03/24 08:07 5/31/25 05:45 Range/Units Whole Blood Glucose 111 H 70-110 MG/DL Lactic Acid Level 1.9 0.8-2.5 mmol/L Procalcitonin 1.71 H 0.05-0.5 ng/mL Sodium Level 138 136-145 mmol/L Potassium Level 4.1 3.5-5.1 mmol/L Chloride Level 101 101-111 mmol/L Carbon Dioxide Level 31 21-32 mmol/L Blood Urea Nitrogen 46 H 7-18 mg/dL Creatinine 0.7 0.5-1.0 mg/dL Glomerular Filtration Rate Calc 99 >90 mL/min Random Glucose 235 H 70-105 mg/dL Total Calcium 8.6 8.5-10.1 mg/dL DIAGNOSTICS / RADIOLOGY RESULTS: [ ] PLAN Follow CT abdomen results Pending General surgery for further recommendation Continue IV antibiotics Monitor BYRON tube drainage Monitor for signs of sepsis Monitor hemodynamics Further management based on above NEURO: Minimize central acting medications as possible. Maintain fall precautions, adequate lighting during the day PULMONARY: Supplemental 02 as needed. Maintain aspiration precautions at all times CARDIOVASCULAR: Follow hemodynamics. Vital signs per facility protocol GI & NUTRITION: Continue with nutritional support. Continue stool softeners and laxatives as needed. KIDNEYS & ELECTROLYTES: Strict monitoring of intake, output and overall fluid balance. Avoid nephrotoxic medications to the extent possible. Medications to be dosed according to renal function. Monitor electrolytes and replace as needed ENDOCRINE: Maintain blood glucose between 100-180 at all times. Hypoglycemia protocol in place INFECTIOUS DISEASE: Trend temperature, WBC and procalcitonin level Follow cultures, deescalate antibiotics as soon as possible. Panculture if new onset fever ONCOLOGY/HEMATOLOGY/COAGULATION: Monitor for s/s of bleeding Monitor hemoglobin, coagulation studies as needed SKIN: Pressure ulcer prevention per facility protocol Specialty mattress ORTHO/REHAB: Continue PT/OT Prophylaxis: Continue GI and DVT prophylaxis Code Status: Full Resuscitation Disposition: TBD Other: Patient was seen and case discussed with gene CHAUDHARI. Plan of care was discussed and agreed upon. Total time spent on patient care is 45 minutes. This does not include time spent on procedures. CHANDA MARROQUIN August 03, 2024 12:19
--- NOTE | 2024-08-03 13:08 | PN ---
INFECTIOUS DISEASE PROGRESS NOTE Date of Service: August 03, 2024 SUBJECTIVE: Patient was seen and examined at bedside in room 326. Patient has been started on clear liquid diet, patient however stated that it makes her very nauseated and taking only sips of it. WBC went up to 34.4 and the vancomycin is on hold due to elevated vancomycin trough of 26.3. We will discontinue vancomycin and start patient on linezolid 600 mg IV q.12 and resume the Meropenem. We will also continue fluconazole. No fever, temperature is 98.8. No drainage observe for the mid abdominal incision. Courtney intact. Very little serosanguineous drainage observe in the BYRON drain. Continues on TPN. We will continue to follow patient's care. PHYSICAL EXAM EYES: Anicteric. Pupils equal and reactive. HENT: No oral thrush seen, moist Oral mucosa NECK: Supple, no JVD or thyromegaly. LUNGS: Good air entry. No rales, no rhonchi. CARDIOVASCULAR: S1, S2 regular. No murmur heard. ABDOMEN: Soft, non tender, bowel sounds present, no organomegaly. Abdominal surgical incision with BYRON drains CENTRAL NERVOUS SYSTEM: Awake, alert and oriented x3. SKIN: No rashes, no swelling. LYMPHATICS: No peripheral lymphadenopathy. MUSCULOSKELETAL: No joint swelling, erythema or tenderness. EXTREMITIES: No cyanosis or clubbing. BACK: No deformity, no pressure ulcer. GENITOURINARY: No dysuria or hematuria. Troy catheter. Vital Sign (Last 12 Hours) 08/03/24 08/03/24 08/03/24 08/03/24 04:00 06:32 06:33 08:00 Temp 97.5 98.8 Pulse 63 111 111 114 Resp 18 18 18 17 B/P (MAP) 94/62 122/77 Pulse Ox 100 95 O2 Delivery Nasal Cannula N/A Room Air Room Air O2 Flow Rate 2.0 FiO2 21 08/03/24 08/03/24 08/03/24 08/03/24 09:35 11:42 11:42 12:00 Temp 97.3 Pulse 114 103 103 110 Resp 18 18 17 B/P (MAP) 122/77 130/78 Pulse Ox 98 O2 Delivery N/A Room Air Room Air FiO2 21 Intake & Output (last 24hrs) 08/02/24 08/02/24 08/03/24 15:00 23:00 07:00 Intake Total 1250.0 ml 1765.0 ml 1000.0 ml Output Total 600 ml 170 ml 395 ml Balance 650.0 ml 1595.0 ml 605.0 ml LABS: Laboratory: Test 08/03/24 11:54 08/03/24 11:50 08/03/24 08:07 08/03/24 05:45 Range/Units Whole Blood Glucose 111 H 70-110 MG/DL Lactic Acid Level 1.9 0.8-2.5 mmol/L Procalcitonin 1.71 H 0.05-0.5 ng/mL White Blood Count 34.4 #*H 4.8-10.8 K/uL Red Blood Count 4.16 # 4.00-5.50 MIL/uL Hemoglobin 11.2 #L 12.0-16.0 g/dL Hematocrit 35.6 #L 36-48 % Mean Corpuscular Volume 85.6 79-99 fL Mean Corpuscular Hemoglobin 26.9 L 27.0-33.0 pg Mean Corpuscular Hemoglobin Concent 31.5 L 32.0-36.0 g/dL Red Cell Distribution Width 17.8 H 11.0-15.5 % Platelet Count 207 130-400 K/uL Mean Platelet Volume 12.2 H 7.5-10.5 fL Segmented Neutrophils % 95 H 40-70 % Lymphocytes % (Manual) 2 L 22-44 % Monocytes % (Manual) 1 L 2-9 % Myelocytes % 2 H 0-0 % Nucleated Red Blood Cells 0.1 0.0-0.19 % Differential Comment MANUAL DIFFERENTIAL White Cell Morphology Comment IMMATURE GRAN 1+ Platelet Morphology Comment ADEQUATE Red Blood Cell Morphology See comments Sodium Level 138 136-145 mmol/L Potassium Level 4.1 3.5-5.1 mmol/L Chloride Level 101 101-111 mmol/L Carbon Dioxide Level 31 21-32 mmol/L Blood Urea Nitrogen 46 H 7-18 mg/dL Creatinine 0.7 0.5-1.0 mg/dL Glomerular Filtration Rate Calc 99 >90 mL/min Random Glucose 235 H 70-105 mg/dL Total Calcium 8.6 8.5-10.1 mg/dL Vancomycin Level Trough 26.3 #*H 10.0-20.0 UG/ML Test 08/03/24 05:05 08/02/24 03:43 Range/Units Immature Granulocyte % (Auto) 1.2 H 0-1 % Neutrophils (%) (Auto) 89.6 H 40.0-77.0 % Lymphocytes (%) (Auto) 6.5 L 21.0-51.0 % Monocytes (%) (Auto) 2.6 L 3.0-13.0 % Eosinophils (%) (Auto) 0.0 0.0-8.0 % Basophils (%) (Auto) 0.1 0.0-5.0 % Neutrophils # (Auto) 24.3 H 1.8-7.7 K/uL Lymphocytes # (Auto) 1.8 1.0-4.8 K/uL Monocytes # (Auto) 0.7 0.1-1.0 K/uL Eosinophils # (Auto) 0.00 0.00-0.70 K/uL Basophils # (Auto) 0.02 0.00-0.20 K/uL Absolute Immature Granulocyte (auto 0.33 0-1 K/uL Vancomycin Level 16.4 L 20.0-30.0 mcg/mL ASSESSMENT: Intestinal perforation, s/p closure of exploratory laparotomy on 07/28/2024. Intra-abdominal abscess with polymicrobial infection, status post open drainage 07/26/2024. Peritonitis. Leukocytosis. Anemia requiring blood transfusion. Respiratory failure requiring intubation, s/p extubated. History of colitis. Debility. PLAN: Discontinue vancomycin. Start linezolid 600 mg IV q.12 hours. Resume Meropenem. Continue fluconazole. Continue GI prophylaxis. Continue physical therapy. We will monitor electrolytes. This case was reviewed and discussed with my supervising physician and the above assessment and plan was formulated and agreed upon. ATTESTATION BY PHYSICIAN I have seen and examined the patient. I reviewed the documentation, medical decision making, and treatment plan as noted by the mid-level provider above. I agree with the findings and plan of care. MILLIE CHATTERJEE MD, MIRTA L [employer] DEPARTMENT MANAGER August 03, 2024 13:08
[2024-08-03] MEDS: LINEZOLID 600 MG/ISO-OSM 300 ML IV SCH (13:39)
[2024-08-03] MEDS: M.V.I. IV [ADULT] 10 ML in CLINIMIX-E 5%AA /D15%W 2000ML 2,000 ML IV ONE (13:41)
--- NOTE | 2024-08-03 14:23 | NUR ---
EMESIS AWARE OF EMESIS. ORDER FOR NPR AND TO CONTACT SURGERY. Addendum: 08/03/24 at 1442 by FAREED HUTCHISON LVN LVN Amended: Links added.
--- NOTE | 2024-08-03 14:42 | NUR ---
EMESIS AWARE OF EMESIS OUTPUT. Addendum: 08/03/24 at 1443 by FAREED HUTCHISON LVN LVN Amended: Links added.
--- NOTE | 2024-08-03 14:45 | NUR ---
CHIO ALAMO ORDER TO KEEP ON CLEARS
--- NOTE | 2024-08-03 15:03 | NUR ---
DR. GUADALUPE CALLED BACK. AWARE OF NEW CONSULT Addendum: 08/03/24 at 1504 by FAREED HUTCHISON LVN LVN Amended: Links added.
--- NOTE | 2024-08-03 15:07 | NUR ---
AWARE OF SECOND EMESIS, 250ML, BROWN. ORDER: NPO Addendum: 08/03/24 at 1508 by FAREED HUTCHISON LVN LVN Amended: Links added.
[2024-08-03] MEDS: MEROPENEM 1GM 1 GM VIAL IVPB SCH (15:32)
[2024-08-04] VITALS (13 sets, daily range): BP systolic 112–152; BP diastolic 63–90; PULSE 87–112; RESP 18–24; TEMP 97.4–97.8; O2SAT 92–99
[2024-08-04 07:17] LABS: MEAN CORPUSCULAR HEMOGLOBIN 27.2 pg (27.0-33.0); MEAN CORPUSCULAR HGB CONC 30.7 g/dL (32.0-36.0); MEAN CORPUSCULAR VOLUME 88.6 fL (79-99); PLATELET COUNT (AUTO) 201 K/uL (130-400); RED BLOOD CELL COUNT(AUTO) 3.16 MIL/uL (4.00-5.50); RED CELL DISTRIBUTION WIDTH 17.7 % (11.0-15.5)
[2024-08-04 07:25] LABS: WHITE BLOOD COUNT (AUTO) 30.8 K/uL (4.8-10.8)
[2024-08-04 07:55] LABS: LYMPHOCYTES % (MANUAL) 6 % (22-44); SEGMENTED NEUTROPHILS % 94 % (40-70); TOTAL CELLS COUNTED 100
[2024-08-04 07:56] LABS: MAN.DIFF COMMENT-IMPRESSION MANUAL DIFFERENTIAL; PLATELET MORPHOLOGY COMMENT ADEQUATE
[2024-08-04 07:57] LABS: WBC MORPHOLOGY HYPERSEGMENT NEUT 1+
--- NOTE | 2024-08-04 08:11 | HMCIMG ---
ABD 1VW HISTORY: Abdominal pain COMPARISON: None FINDINGS: A frontal projection of the abdomen was obtained. Mild small bowel dilatation is seen. Fecal material is seen in the colon. Postop changes are seen with surgical marlon at mid abdomen. Drainage tube is seen. Postop changes are seen of left femur with intramedullary elsy. IMPRESSION: 1. Mild small bowel dilatation may be related to ileus with early bowel obstruction not excluded.
[2024-08-04 08:30] LABS: CREATININE 0.8 mg/dL (0.5-1.0); POTASSIUM 3.2 mmol/L (3.5-5.1)
--- NOTE | 2024-08-04 10:56 | NUR ---
DR. DAMIAN AT BEDSIDE. NEW ORDERS FOR NS @50ML/HR CBC,CMP TM AM TO KEEP NPO AND CONTINUE TPN
--- NOTE | 2024-08-04 10:59 | PN ---
GENERAL SURGERY PROGRESS NOTE DATE OF SERVICE: Aug 04, 2024 TIME OF SERVICE: 10:58 Awake alert no pain no nausea or vomiting having loose stools PROBLEM LISTS: [ ] INTERVAL HISTORY: [ ] PHYSICAL EXAMINATION: GENERAL: [Patient is lying comfortably in bed, not in any obvious distress.] HEAD: [Normal with no signs of head trauma.] EYES: [Not pale not jaundiced afebrile to touch.] ENT: [ Normal.] NECK: [Supple,no tenderness,no lymphadenopathy,no masses,no thyromegaly ,no bruits, no JVD.] LUNGS: [Clear breath sounds bilaterally. No wheezes, rales, or rhonchi.] HEART: [Regular rate and rhythm. Normal S1 and S2, without murmurs, rub or gallop.] VASC: [No edema. Peripheral pulses normal and equal in all extremities.] ABD: [Bowel sounds present,soft, RUQ tender, no masses, no organomegaly.] : [Normal, no suprapubic tenderness.] LYMPH: [No lymphadenopathy noted.] EXT: [ Warm soft, non tender.] SKIN: [ No rashes or lesions.] NEURO: [ Awake Alert and oriented x3.] LABORATORY: [ ] Hematology Labs: Test 08/04/24 06:41 08/03/24 05:45 08/03/24 05:05 Range/Units White Blood Count 30.8 *H 4.8-10.8 K/uL Red Blood Count 3.16 L 4.00-5.50 MIL/uL Hemoglobin 8.6 #L 12.0-16.0 g/dL Hematocrit 28.0 #L 36-48 % Mean Corpuscular Volume 88.6 79-99 fL Mean Corpuscular Hemoglobin 27.2 27.0-33.0 pg Mean Corpuscular Hemoglobin Concent 30.7 L 32.0-36.0 g/dL Red Cell Distribution Width 17.7 H 11.0-15.5 % Platelet Count 201 130-400 K/uL Mean Platelet Volume 11.9 H 7.5-10.5 fL Segmented Neutrophils % 94 H 40-70 % Lymphocytes % (Manual) 6 L 22-44 % Nucleated Red Blood Cells 0.0 0.0-0.19 % Differential Comment MANUAL DIFFERENTIAL White Cell Morphology Comment HYPERSEGMENT NEUT 1+ Platelet Morphology Comment ADEQUATE Red Blood Cell Morphology See comments Monocytes % (Manual) 1 L 2-9 % Myelocytes % 2 H 0-0 % Immature Granulocyte % (Auto) 1.2 H 0-1 % Neutrophils (%) (Auto) 89.6 H 40.0-77.0 % Lymphocytes (%) (Auto) 6.5 L 21.0-51.0 % Monocytes (%) (Auto) 2.6 L 3.0-13.0 % Eosinophils (%) (Auto) 0.0 0.0-8.0 % Basophils (%) (Auto) 0.1 0.0-5.0 % Neutrophils # (Auto) 24.3 H 1.8-7.7 K/uL Lymphocytes # (Auto) 1.8 1.0-4.8 K/uL Monocytes # (Auto) 0.7 0.1-1.0 K/uL Eosinophils # (Auto) 0.00 0.00-0.70 K/uL Basophils # (Auto) 0.02 0.00-0.20 K/uL Absolute Immature Granulocyte (auto 0.33 0-1 K/uL Chemistry Labs: Test 08/04/24 08:05 08/04/24 05:56 08/03/24 11:50 08/03/24 08:07 Range/Units Sodium Level 139 136-145 mmol/L Potassium Level 3.2 L 3.5-5.1 mmol/L Chloride Level 100 L 101-111 mmol/L Carbon Dioxide Level 33 H 21-32 mmol/L Blood Urea Nitrogen 53 H 7-18 mg/dL Creatinine 0.8 0.5-1.0 mg/dL Glomerular Filtration Rate Calc 84 >90 mL/min Random Glucose 207 H 70-105 mg/dL Total Calcium 8.5 8.5-10.1 mg/dL Whole Blood Glucose 230 H 70-110 MG/DL Bedside Glucose Comment Notified Nurse Lactic Acid Level 1.9 0.8-2.5 mmol/L Procalcitonin 1.71 H 0.05-0.5 ng/mL DIAGNOSTICS / RADIOLOGY: [Copy/Paste Echos/Imaging Report here] ASSESSMENT: [] PLAN: Vancomycin toxicity rehydrate FERNANDO CONTRERAS MD Aug 04, 2024 10:59
[2024-08-04] MEDS: 0.9%NACL 1000ML 1,000 ML IV SCH (11:28)
--- NOTE | 2024-08-04 12:09 | PN ---
[facility] PROGRESS NOTE Date Patient Seen: Aug 04, 2024 Time of Visit: 12:07 Supervising Physician: [Dr. Rivera] Primary Care Physician: [Dr. Villarreal of [facility] ] Outpatient Specialists: [GI: Dr. Solitario ] Inpatient Consults: [Dr. Quintero of surgery ] PROBLEM LIST: Septic shock from below requiring pressors,resolving Bacterial peritonitis POA + Enterococcus Raffinosus and Klebsiella pneumoniae Bowel perforation w/ Pneumoperitoneum-POA S/P exploratory laparotomy with drainage of intra-abdominal abscess/ventral hernia repair/small-bowel resection/lysis of adhesions/left open and a wound VAC on 07/26/24 per Removal of previously placed ABThera wound VAC & Placement of Seprafilm adhesion barrier 07/28/24 per Incarcerated ventral hernia POA Primary repair ventral hernia 07/28/24 Left Lateral Hernia POA Primary repair left flank hernia 07/28/24 Acute cholecystitis, POAopen cholecystectomy on 07/28/24 High risk for ischemic bowel-POA Acute hypokalemia-POA Dehydration-POA SHARMILA not POA Lactic acidosis-POA Hyperglycemia 2/2 uncontrolled diabetes mellitus Primary HTN HX of colitis HX of inflammatory bowel disease (Crohn's Disease) Recent hospitalization for UTI with outpatient Zosyn antibiotic with Dr. Diaz INTERVAL HISTORY: This is Day 1 open cholecystectomy with removal of previously placed ABTHera wound VAC, placement of ceftriaxone home adhesion barrier, primary repair of left flank hernia and repair of ventral hernia per . no further plans of taking pt back to OR per report. Per RN no major overnight event. Patient is on sedation vacation this morning still 117 to wake up grimaces to movement. Will attempt CPAP this morning. Weaning Jose Armando-Synephrine currently yesterday 0.1 mcg/kg per minute. Lines: Right IJ Cordis, arterial line, OG tube, ET tubes, Troy catheter, DP is. Left BYRON drain 320 mL with red BYRON draining 120 mL. She remains NPO on TPN at 75 mL/hour. Urine output of 3.6 L,-1.9 L balance Patient's problems has been updated of plan of care and verbalizes alicia antoine. He continues IV antibiotics. Intra-abdominal fluid culture growing positive for Klebsiella pneumoniae and Enterococcus Raffinosus. White count is 9.8 similar to yesterday, H&H stable 8.61/28.5 platelet count trending down 76 K today. Creatinine of 0.7 with GFR of 99 kidneys are improved. Magnesium of 1.7 covered per protocol. Blood sugar of 311 mg/dL insulin adjusted. X-ray stable. ET tube 4.4 cm with the ld. No pneumothorax. 07/30/2024: At the time of my evaluation, the patient was lying in bed. She remains intubated and on mechanical vent support. On the monitor, the patient was marginally tachycardic, tachypneic and blood pressure within normal ranges. Laboratory data today showed improved WBC down to 10.6 there was no profound an emia or thrombocytopenia. Chemistry panel showed no major electrolyte derangement or renal parameter changes. No new microbiology data for review today. Chest imaging showed bilateral pneumonic infiltrates and cardiomegaly. No other complaint. 07/31/2024: At the time of my evaluation, the patient was lying in bed. Family member and staff nurse are present at the bedside. Per the staff nurse, no acute events overnight. On the monitor, the patient had no febrile events, no tachycardia or tachypnea. Blood pressure between normal range and she remains on nasal cannula for oxygen supplementation. Laboratory data today , showed no leukocytosis, there was significant anemia 7.3/23.5 and platelet count of 119. No chemistry was collected for today. Imaging for today still shows pulmonary vascular congestion and pneumonic infiltrates bilaterally. Troy catheter remains in place and patient had a documented urinary output of 2700 mL and a net balance of -28.0. No other complaint 08/01/2024: At the time of my evaluation, the patient was lying in bed. Staff nurse reports no acute events overnight. On the monitor, the patient is with borderline tachycardia, no tachypnea and normotensive. She remains on a nasal cannula for oxygen supplementation. Surgical site, is benign. BYRON drain x2 totaling 335 mL out voided output of 4800 mL over the past 24 hours with a net balance of -2585.1. Laboratory data today did show a drop in H&H to 7.1/23.4 and a platelet count of 111. Chemistry panel showed a potassium of 3.2, renal parameters were not of concern. No new microbiology data for review. Chest x- ray today showed bilateral pneumonic infiltrate and a right mid lung atelectasis. There was also borderline cardiomegaly. Currently, the patient remains on antibiotic coverage with meropenem, fluconazole and vancomycin. She is also on nutritional support with TPN. No other complaint. 08/02/2024: At the time of my evaluation, the patient was lying in bed. Staff nurse reports no acute events overnight. The patient is breathing on room air. On the monitor, parameters are unremarkable. Laboratory data showed a hemoglobin of 9.7 and hematocrit of 31.3. Platelet count 166. Chemistry panel was notable for a potassium of 3.2 otherwise unremarkable no new imaging for review today. Currently, the patient remains on TPN for nutritional support and is on antibiotic therapy with Merrem, vanco and fluconazole. No other complaint. 08/03 patient is evaluated at bedside. Her WBCs significantly increased to 27 then 34 up from eight yesterday. Her hemoglobin has remained stable at 11.2. No fever overnight. Her BYRON drain has normal serous fluid with minimal output since yesterday. She is pending a repeat CT abdomen. General surgery is aware, pending further recommendation. Patient states her pain is actually improved from yesterday. 08/04 patient was evaluated at bedside. She had two episodes of nonbloody emesis yesterday. She remains NPO today and continues on TPN. General surgery has ordered IV fluids. Her WBC his downtrending but still significantly elevated at 30. Patient states her pain is much decreased. No fever reported overnight. Continues on IV antibiotic. REVIEW OF SYSTEMS: 12- point system review was carried out, pertinent positive documented above otherwise negative. PHYSICAL EXAM: GENERAL: Critically- ill appearing. HEENT: Sclera non icteric, moist mucosa pupils3 mm echo and sluggish NECK: Supple, no JVD, trachea midline right IJ Cordis LUNGS: Diminished breath sounds bilaterally. No wheezes HEART: Regular rate and rhythm. Normal S1 and S2, without murmurs ABD: Obese abdomen, mid abdomen dressing clean dry and intact. Bilateral BYRON present. Draining serosanguineous EXT: No clubbing cyanosis or edema. Troy in situ NEURO: Awake, alert and follows commands. Vital Signs (last 8hr) Date Time Temp Pulse Resp B/P (MAP) Pulse Ox O2 Delivery O2 Flow Rate FiO2 08/04/24 11:02 98 18 N/A Room Air 21 6/1/25 11:02 98 18 08/04/24 09:58 87 136/83 08/04/24 08:00 97.3 87 18 136/83 94 Room Air 08/04/24 06:43 104 18 N/A Room Air 21 08/04/24 06:43 104 18 LABS: Hematology Labs: Test 08/04/24 06:41 08/03/24 05:45 08/03/24 05:05 Range/Units White Blood Count 30.8 *H 4.8-10.8 K/uL Red Blood Count 3.16 L 4.00-5.50 MIL/uL Hemoglobin 8.6 #L 12.0-16.0 g/dL Hematocrit 28.0 #L 36-48 % Mean Corpuscular Volume 88.6 79-99 fL Mean Corpuscular Hemoglobin 27.2 27.0-33.0 pg Mean Corpuscular Hemoglobin Concent 30.7 L 32.0-36.0 g/dL Red Cell Distribution Width 17.7 H 11.0-15.5 % Platelet Count 201 130-400 K/uL Mean Platelet Volume 11.9 H 7.5-10.5 fL Segmented Neutrophils % 94 H 40-70 % Lymphocytes % (Manual) 6 L 22-44 % Nucleated Red Blood Cells 0.0 0.0-0.19 % Differential Comment MANUAL DIFFERENTIAL White Cell Morphology Comment HYPERSEGMENT NEUT 1+ Platelet Morphology Comment ADEQUATE Red Blood Cell Morphology See comments Monocytes % (Manual) 1 L 2-9 % Myelocytes % 2 H 0-0 % Immature Granulocyte % (Auto) 1.2 H 0-1 % Neutrophils (%) (Auto) 89.6 H 40.0-77.0 % Lymphocytes (%) (Auto) 6.5 L 21.0-51.0 % Monocytes (%) (Auto) 2.6 L 3.0-13.0 % Eosinophils (%) (Auto) 0.0 0.0-8.0 % Basophils (%) (Auto) 0.1 0.0-5.0 % Neutrophils # (Auto) 24.3 H 1.8-7.7 K/uL Lymphocytes # (Auto) 1.8 1.0-4.8 K/uL Monocytes # (Auto) 0.7 0.1-1.0 K/uL Eosinophils # (Auto) 0.00 0.00-0.70 K/uL Basophils # (Auto) 0.02 0.00-0.20 K/uL Absolute Immature Granulocyte (auto 0.33 0-1 K/uL Chemistry Labs: Test 08/04/24 11:23 08/04/24 08:05 08/04/24 05:56 08/03/24 11:50 Range/Units Whole Blood Glucose 149 H 70-110 MG/DL Sodium Level 139 136-145 mmol/L Potassium Level 3.2 L 3.5-5.1 mmol/L Chloride Level 100 L 101-111 mmol/L Carbon Dioxide Level 33 H 21-32 mmol/L Blood Urea Nitrogen 53 H 7-18 mg/dL Creatinine 0.8 0.5-1.0 mg/dL Glomerular Filtration Rate Calc 84 >90 mL/min Random Glucose 207 H 70-105 mg/dL Total Calcium 8.5 8.5-10.1 mg/dL Bedside Glucose Comment Notified Nurse Lactic Acid Level 1.9 0.8-2.5 mmol/L Test 08/03/24 08:07 Range/Units Procalcitonin 1.71 H 0.05-0.5 ng/mL DIAGNOSTICS / RADIOLOGY RESULTS: [ ] PLAN Follow General surgery recommendation Keep NPO Continue IV antibiotics Monitor BYRON tube drainage Monitor for signs of sepsis Monitor hemodynamics Further management based on above NEURO: Minimize central acting medications as possible. Maintain fall precautions, adequate lighting during the day PULMONARY: Supplemental 02 as needed. Maintain aspiration precautions at all times CARDIOVASCULAR: Follow hemodynamics. Vital signs per facility protocol GI & NUTRITION: Continue with nutritional support. Continue stool softeners and laxatives as needed. KIDNEYS & ELECTROLYTES: Strict monitoring of intake, output and overall fluid balance. Avoid nephrotoxic medications to the extent possible. Medications to be dosed according to renal function. Monitor electrolytes and replace as needed ENDOCRINE: Maintain blood glucose between 100-180 at all times. Hypoglycemia protocol in place INFECTIOUS DISEASE: Trend temperature, WBC and procalcitonin level Follow cultures, deescalate antibiotics as soon as possible. Panculture if new onset fever ONCOLOGY/HEMATOLOGY/COAGULATION: Monitor for s/s of bleeding Monitor hemoglobin, coagulation studies as needed SKIN: Pressure ulcer prevention per facility protocol Specialty mattress ORTHO/REHAB: Continue PT/OT Prophylaxis: Continue GI and DVT prophylaxis Code Status: Full Resuscitation Disposition: TBD Other: Patient was seen and case discussed with rounding MD. Plan of care was discussed and agreed upon. Total time spent on patient care is 45 minutes. This does not include time spent on procedures. CHANDA MARROQUIN Aug 04, 2024 12:09
--- NOTE | 2024-08-04 12:40 | PN ---
INFECTIOUS DISEASE PROGRESS NOTE Date of Service: Aug 04, 2024 SUBJECTIVE: Patient was seen and examined at bedside in room 326. Patient continued with nauseated and vomiting and is now NPO. Continues on TPN. Slight improvement on the WBC to 30.8 and no fever, temperature is 97.3. We will continue on linezolid 600 mg IV q.12, Meropenem and fluconazole. Mid abdominal incision clean and dry with marlon intact. There was a slight drop on the hemoglobin to 8.6 and pending a GI re-evaluation. No dyspnea observed and patient is saturating 92-94% on room air. We will continue to follow patient's care. PHYSICAL EXAM EYES: Anicteric. Pupils equal and reactive. HENT: No oral thrush seen, moist Oral mucosa NECK: Supple, no JVD or thyromegaly. LUNGS: Good air entry. No rales, no rhonchi. CARDIOVASCULAR: S1, S2 regular. No murmur heard. ABDOMEN: Soft, non tender, bowel sounds present, no organomegaly. Abdominal surgical incision with BYRON drain. CENTRAL NERVOUS SYSTEM: Awake, alert and oriented x3. SKIN: No rashes, no swelling. LYMPHATICS: No peripheral lymphadenopathy. MUSCULOSKELETAL: No joint swelling, erythema or tenderness. EXTREMITIES: No cyanosis or clubbing. BACK: No deformity, no pressure ulcer. GENITOURINARY: No dysuria or hematuria. Troy catheter. Vital Sign (Last 12 Hours) 08/04/24 08/04/24 08/04/24 08/04/24 04:00 06:43 06:43 08:00 Temp 97.3 97.3 Pulse 101 104 104 87 Resp 24 18 18 18 B/P (MAP) 112/66 136/83 Pulse Ox 92 94 O2 Delivery Room Air N/A Room Air Room Air FiO2 21 08/04/24 08/04/24 08/04/24 09:58 11:02 11:02 Pulse 87 98 98 Resp 18 18 B/P (MAP) 136/83 O2 Delivery N/A Room Air FiO2 21 Intake & Output (last 24hrs) 0 08/03/24 08/03/24 08/04/24 15:00 23:00 07:00 Intake Total 1537.5 ml 1300.0 ml Output Total 370 ml 492 ml 560 ml Balance -370 ml 1045.5 ml 740.0 ml LABS: Laboratory: Test 08/04/24 11:23 08/04/24 08:05 08/04/24 06:41 08/04/24 05:56 Range/Units Whole Blood Glucose 149 H 70-110 MG/DL Sodium Level 139 136-145 mmol/L Potassium Level 3.2 L 3.5-5.1 mmol/L Chloride Level 100 L 101-111 mmol/L Carbon Dioxide Level 33 H 21-32 mmol/L Blood Urea Nitrogen 53 H 7-18 mg/dL Creatinine 0.8 0.5-1.0 mg/dL Glomerular Filtration Rate Calc 84 >90 mL/min Random Glucose 207 H 70-105 mg/dL Total Calcium 8.5 8.5-10.1 mg/dL White Blood Count 30.8 *H 4.8-10.8 K/uL Red Blood Count 3.16 L 4.00-5.50 MIL/uL Hemoglobin 8.6 #L 12.0-16.0 g/dL Hematocrit 28.0 #L 36-48 % Mean Corpuscular Volume 88.6 79-99 fL Mean Corpuscular Hemoglobin 27.2 27.0-33.0 pg Mean Corpuscular Hemoglobin Concent 30.7 L 32.0-36.0 g/dL Red Cell Distribution Width 17.7 H 11.0-15.5 % Platelet Count 201 130-400 K/uL Mean Platelet Volume 11.9 H 7.5-10.5 fL Segmented Neutrophils % 94 H 40-70 % Lymphocytes % (Manual) 6 L 22-44 % Nucleated Red Blood Cells 0.0 0.0-0.19 % Differential Comment MANUAL DIFFERENTIAL White Cell Morphology Comment HYPERSEGMENT NEUT 1+ Platelet Morphology Comment ADEQUATE Red Blood Cell Morphology See comments Bedside Glucose Comment Notified Nurse Test 08/03/24 11:50 08/03/24 08:07 08/03/24 05:45 08/03/24 05:05 Range/Units Lactic Acid Level 1.9 0.8-2.5 mmol/L Procalcitonin 1.71 H 0.05-0.5 ng/mL Monocytes % (Manual) 1 L 2-9 % Myelocytes % 2 H 0-0 % Vancomycin Level Trough 26.3 #*H 10.0-20.0 UG/ML Immature Granulocyte % (Auto) 1.2 H 0-1 % Neutrophils (%) (Auto) 89.6 H 40.0-77.0 % Lymphocytes (%) (Auto) 6.5 L 21.0-51.0 % Monocytes (%) (Auto) 2.6 L 3.0-13.0 % Eosinophils (%) (Auto) 0.0 0.0-8.0 % Basophils (%) (Auto) 0.1 0.0-5.0 % Neutrophils # (Auto) 24.3 H 1.8-7.7 K/uL Lymphocytes # (Auto) 1.8 1.0-4.8 K/uL Monocytes # (Auto) 0.7 0.1-1.0 K/uL Eosinophils # (Auto) 0.00 0.00-0.70 K/uL Basophils # (Auto) 0.02 0.00-0.20 K/uL Absolute Immature Granulocyte (auto 0.33 0-1 K/uL ASSESSMENT: Intestinal perforation, s/p closure of exploratory laparotomy on 07/28/2024. Intra-abdominal abscess with polymicrobial infection, status post open drainage 07/26/2024. Peritonitis. Leukocytosis. Anemia requiring blood transfusion. Respiratory failure requiring intubation, s/p extubated. History of colitis. Debility. PLAN: Continue linezolid 600 mg IV q.12 hours. Continue Meropenem. Continue fluconazole. Continue GI prophylaxis. Continue physical therapy. We will monitor electrolytes. Pending GI re-evaluation. Continue antiemetics. This case was reviewed and discussed with my supervising physician and the above assessment and plan was formulated and agreed upon. ATTESTATION BY PHYSICIAN I have seen and examined the patient. I reviewed the documentation, medical decision making, and treatment plan as noted by the mid-level provider above. I agree with the findings and plan of care. MILLIE CHATTERJEE MD, [facility] Aug 04, 2024 12:40
--- NOTE | 2024-08-04 14:26 | PN ---
[facility] PROGRESS NOTE Date of Service: Aug 04, 2024 Time of Service: 14:18 SUBJECTIVE: 59-year-old female the past medical history of hypertension who presented to the hospital secondary to abdominal pain. Patient stated for the past 3-4 days she has been having increasing abdominal pain with abdominal distention. She was feeling nauseated and had episodes of emesis at home. She denied any hematemesis, melena, hematochezia. Patient was previously hospitalized in [facility] around one month ago secondary to colitis. GI was consulted during admission and patient underwent colonoscopy with findings showing severe inflammation of the entire colon concerning for pancolitis. She was treated with IV steroids and and was to start patient on Remicade as outpatient. She denied any fever, chills, diarrhea. She was going to follow up with GI as outpatient on 07/26/24 but had worsening pain which caused her to come to the hospital for further evaluation. Labs in the ED were notable for white count of 10.3, hemoglobin was 12.8, platelet count was 363 K, sodium was 138, potassium was 2.8, creatinine is 1.0, blood glucose was 269, lactic acid on presentation was 8.[address] abdomen pelvis which showed free intraperitoneal air concerning for bowel perforation. There is a anterior ventral wall hernia with bowel content and air collection and fat stranding concerning for bowel perforation. Her colon was also noted to be inflamed. CT was performed without contrast. 07/26 BP 135/83, tachycardic 102, saturating 100% 2 L nasal cannula. CBC shows hemoglobin 11.0, hematocrit 35.9, WBC 18.8, platelet count of 203. Sodium 141, potassium 3.7, BUN of 29, creatinine slightly worse today at 1.2. ABG with pH 7.51, pCO2 of 28, PO2 62.6, bicarb of 22.5. Serology to include influenza, SARS and group A negative. Results of chest x-ray pending. Patient is scheduled to be taken to the OR today. 07/27 the patient remains admitted to the intensive care unit, intubated, on mechanical ventilation, status post exploratory laparotomy, postoperative day one, case discussed with the RN, patient on propofol, Jose Armando-Synephrine, wound VAC to the abdomen in place, noted to have right IJ line in place. Getting broad- spectrum IV antibiotics. Blood pressure 130/79, heart rate of 83, saturating 100% on mechanical ventilation, FiO2 40%. Leukocytosis is worse today at 28.1, drop in hemoglobin to 9.7, hematocrit 30.8, with a platelet count of 148. Potassium level 3.6, magnesium 1.6. Lactic acid from 8.2 down to 1.8 ABG with pH 7.4, pCO2 34, PO2 145, bicarb of 20. Chest x-ray shows bilateral lower lung infiltrates. Family at Bedside, updated 07/28 the patient has been seen and examined in the intensive care unit, she remains intubated, mechanical ventilation, on fentanyl, propofol and Jose Armando- Synephrine, getting broad-spectrum antibiotics, BP 112/84, afebrile, saturating 100% on mechanical ventilation, FiO2 40%. CBC with a hemoglobin 8.4, hematocrit 27.8, WBC of 16.3, platelet count of 89. Patient is status post exploratory laparotomy with drainage of intra-abdominal abscess/ventral hernia repair/small- bowel resection/NS of adhesions/left open and wound VAC on 07/23 05/28 by General surgery. Results of septic workup reviewed, Gram-negative rods. Patient with a possible ischemic colitis, plan to take the patient back to the operating room for further exploration. 07/29 Pt seen at bedside, no acute events overnight. She is s/p ex-lap with cholecystectomy. Currently on pressors, will wean as able. Remains intubated, PEEP 5, FiO2 30%, will continue with daily sedation vacations. She is mildly tachycardic. She is NPO, continue TPN per general surgery. WBC increased from 16.3 up to 16.8, Hgb improved from 8.4 up to 8.6, platelets decreased from 89 do wn to 76 07/30 Pt seen at bedside, no acute events overnight. She is s/p ex-lap with small bowel resection, appendectomy and drainage of intraabdominal abscess with wound vac post op day 4, repeat ex-lap with cholecystectomy, repair of left flank and ventral hernias post op day 2. Currently on pressors, will wean as able. Remains intubated, PEEP 5, FiO2 30%, she was on sedation vacation, in no acute distress, possible extubation today, will defer to critical care. She is NPO, continue TPN per general surgery. WBC improved from 16.8 down to 10.6, Hgb stable at 8.3, similar to yesterday, platelets improved from 76 up to 90, remai nder of her labs are relatively unremarkable. 07/31 patient seen at bedside, no acute events overnight. She is status post ex lap with small-bowel resection, appendectomy and drainage of intra-abdominal abscess with wound VAC postop day five, repeat ex lap with cholecystectomy, repair of left flank and ventral hernias postop day three. She has been successfully extubated, we will continue to try and wean pressors. Hemoglobin stable at 7.2, similar to yesterday, platelets decreased from 119-98, potassium mildly low at 3.2, we will be repleted according to protocol, remainder of her labs are relatively unremarkable. 08/02 patient seen at bedside, no acute events overnight. She is status post ex lap with small-bowel resection, appendectomy and drainage of intra-abdominal abscess with wound VAC postop day 6 repeat ex lap with cholecystectomy, repair of left flank and ventral hernias postop day 4. She has been successfully extubated, and weaned off pressors. She was transfused yesterday, Hgb improved from 6.9 up to 9.7, platelets improved to 166, potassium mildly low at 3.2, we will be repleted according to protocol, remainder of her labs are relatively unremarkable. She continues on TPN, diet to be addressed by general surgery. Only complaint is continued xuan-incisional pain 08/03 patient seen at bedside, no acute events overnight. At bedside she is in no acute distress, she has no complaints. She is status post ex lap with small- bowel resection, appendectomy and drainage of intra-abdominal abscess with wound VAC postop day 7 repeat ex lap with cholecystectomy, repair of left flank and ventral hernias postop day 5. WBC increased from 8.0 up to 27.1, this seemed to be and anomaly so a repeat CBC was ordered and WBC increased again to 34.4. Patient has been bolused 1 L of LR, repeat lactic acid was ordered and was mildly elevated at 2.5, wounds were examined at bedside and found to be clean dry and intact with no drainage or erythema. The BYRON drains are still draining serosanguineous fluid there does not appear to be sick succus suggesting bowel perforation. Discussed case with General surgery and Infectious Disease, we agreed to order a CT scan of the abdomen/pelvis to determine if there is a new abscess forming. Patient has not had watery bowel movements to suggest C diff and she is already on fluconazole. Hemoglobin increased from 8.7 up to 11.2, remainder of her labs are relatively unremarkable. Antibiotics were adjusted to Zyvox and meropenem. Further recommendations per Infectious Disease and General surgery. 08/04 patient seen at bedside, no acute events overnight. She has no complaints at bedside, reports her pain has improved today. She was made NPO yesterday after she vomited, we will resume clear liquid diet per General surgery recommendations. She is hemodynamically stable saturating well on room air, her WBC improved from 34.4 down to 30.8, hemoglobin decreased from 11.2 down to 8.6, potassium decreased from 4.1 down to 3.2, remainder of her labs are relatively unremarkable. Pt has been referred for LTAC, follow up with case management REVIEW OF SYSTEMS 12 point ROS negative unless noted in HPI PHYSICAL EXAM GENERAL APPEARANCE: Patient intubated, on mechanical ventilation. NEUROLOGICAL: Cranial nerves II-XII grossly intact. Motor is 5/5 in bilateral upper and lower extremities proximal to distal. No sensory deficits. HEENT: Face is symmetric. Pupils are equal and reactive. Extraocular movements are intact. NECK: Supple. No JVD. No thyromegaly. No submental, submandibular, pre- /postauricular, occipital or supraclavicular lymphadenopathy. CHEST: Normal chest expansion. No Telemetry. LUNGS: Absence of any rales, rhonchi or any wheezing. CARDIOVASCULAR: Regular. S1 and S2 normal. No appreciable rubs, murmurs or g allops. ABDOMEN: Abdominal wound VAC in place : Deferred. No [place]. EXTREMITIES: Non-edematous and not cyanotic. No clubbing. Good capillary refill. SKIN: No skin breakdown. Vital Signs (last 8hr) Date Time Temp Pulse Resp B/P (MAP) Pulse Ox O2 Delivery O2 Flow Rate FiO2 08/04/24 12:00 97.3 87 18 127/63 94 Room Air 08/04/24 11:02 98 18 N/A Room Air 21 08/04/24 11:02 98 18 08/04/24 09:58 87 136/83 08/04/24 08:00 97.3 87 18 136/83 94 Room Air 08/04/24 06:43 104 18 N/A Room Air 21 08/04/24 06:43 104 18 LABS: Laboratory: Test 08/04/24 11:23 08/04/24 08:05 08/04/24 06:41 08/04/24 05:56 Range/Units Whole Blood Glucose 149 H 70-110 MG/DL Sodium Level 139 136-145 mmol/L Potassium Level 3.2 L 3.5-5.1 mmol/L Chloride Level 100 L 101-111 mmol/L Carbon Dioxide Level 33 H 21-32 mmol/L Blood Urea Nitrogen 53 H 7-18 mg/dL Creatinine 0.8 0.5-1.0 mg/dL Glomerular Filtration Rate Calc 84 >90 mL/min Random Glucose 207 H 70-105 mg/dL Total Calcium 8.5 8.5-10.1 mg/dL White Blood Count 30.8 *H 4.8-10.8 K/uL Red Blood Count 3.16 L 4.00-5.50 MIL/uL Hemoglobin 8.6 #L 12.0-16.0 g/dL Hematocrit 28.0 #L 36-48 % Mean Corpuscular Volume 88.6 79-99 fL Mean Corpuscular Hemoglobin 27.2 27.0-33.0 pg Mean Corpuscular Hemoglobin Concent 30.7 L 32.0-36.0 g/dL Red Cell Distribution Width 17.7 H 11.0-15.5 % Platelet Count 201 130-400 K/uL Mean Platelet Volume 11.9 H 7.5-10.5 fL Segmented Neutrophils % 94 H 40-70 % Lymphocytes % (Manual) 6 L 22-44 % Nucleated Red Blood Cells 0.0 0.0-0.19 % Differential Comment MANUAL DIFFERENTIAL White Cell Morphology Comment HYPERSEGMENT NEUT 1+ Platelet Morphology Comment ADEQUATE Red Blood Cell Morphology See comments Bedside Glucose Comment Notified Nurse Test 08/03/24 11:50 08/03/24 08:07 08/03/24 05:45 08/03/24 05:05 Range/Units Lactic Acid Level 1.9 0.8-2.5 mmol/L Procalcitonin 1.71 H 0.05-0.5 ng/mL Monocytes % (Manual) 1 L 2-9 % Myelocytes % 2 H 0-0 % Vancomycin Level Trough 26.3 #*H 10.0-20.0 UG/ML Immature Granulocyte % (Auto) 1.2 H 0-1 % Neutrophils (%) (Auto) 89.6 H 40.0-77.0 % Lymphocytes (%) (Auto) 6.5 L 21.0-51.0 % Monocytes (%) (Auto) 2.6 L 3.0-13.0 % Eosinophils (%) (Auto) 0.0 0.0-8.0 % Basophils (%) (Auto) 0.1 0.0-5.0 % Neutrophils # (Auto) 24.3 H 1.8-7.7 K/uL Lymphocytes # (Auto) 1.8 1.0-4.8 K/uL Monocytes # (Auto) 0.7 0.1-1.0 K/uL Eosinophils # (Auto) 0.00 0.00-0.70 K/uL Basophils # (Auto) 0.02 0.00-0.20 K/uL Absolute Immature Granulocyte (auto 0.33 0-1 K/uL Current Medications Medications (Trade) Dose Ordered Sig/Alexandra Route PRN Reason Start Time Stop Time Status Last Admin Dose Admin Albumin Human 100 ml @ 50 mls/hr AD IV 07/28/24 08:00 07/31/24 07:59 DC Cefepime HCl (MAXipime 2 gm vial) 2 gm Q24H IVPB 07/26/24 22:00 07/27/24 14:55 DC 07/26/24 22:54 2 GM Dexmedetomidine/ Sodium Chloride (PRECEdex 400MCG/ 100ML-NS) 400 mcg PROTOCOL PRN IV agitation 07/29/24 14:00 08/03/24 13:31 DC 07/30/24 01:18 400 MCG Dextrose (D50w) 50 ml AD PRN IV HYPOGLYCEMIA PROTOCOL 07/27/24 16:00 08/26/24 15:59 Famotidine (Pepcid 20mg Vial) 20 mg Q24H IV 07/25/24 21:00 08/24/24 20:59 08/03/24 21:50 20 MG Fat Emulsion Intravenous 250 ml @ 42 mls/hr QMOFR IV 07/29/24 09:00 08/28/24 08:59 08/02/24 11:51 42 MLS/HR Fentanyl Citrate 100 ml @ 0 mls/hr PROTOCOL IV 07/26/24 13:30 07/27/24 12:04 DC Fentanyl Citrate 100 ml @ 0 mls/hr PROTOCOL IV 07/27/24 12:30 07/29/24 13:42 DC 07/29/24 02:03 5 MLS/HR Fentanyl/Sodium Chloride 250 ml @ 0.1 mls/hr PROTOCOL IV 07/27/24 12:00 07/27/24 12:05 DC Fluconazole/ Sodium Chloride 100 ml @ 100 mls/hr Q24H IV 07/26/24 13:30 08/25/24 13:29 08/03/24 13:39 100 MLS/HR Furosemide (LASix 20MG VIAL) 20 mg Q8H IV 07/28/24 15:30 08/27/24 15:29 08/04/24 06:35 20 MG Glucagon (Glucagon 1mg Kit) 1 mg AD PRN IM HYPOGLYCEMIA PROTOCOL 07/27/24 16:00 08/26/24 15:59 Hydromorphone HCl (DiLAUDid 0.5MG INJ) 0.5 mg Q4H PRN IVP SEVERE PAIN (7-10) 07/29/24 14:00 08/03/24 13:59 DC 08/02/24 11:44 0.5 MG Insulin Glargine (LANtus 100 UNITS/ML 10 ML VIAL) 5 units HS SQ 07/27/24 21:00 07/29/24 09:47 DC 07/28/24 20:48 5 UNITS Insulin Glargine (LANtus 100 UNITS/ML 10 ML VIAL) 15 units BID SQ 07/29/24 21:00 08/28/24 20:59 08/04/24 10:01 15 UNITS Insulin Glargine (LANtus 100 UNITS/ML 10 ML VIAL) 15 units HS SQ 07/29/24 21:00 07/29/24 13:43 DC Insulin Human Regular (humuLIN R 100 UNIT/ML 3ML) INSULIN SLIDING SCAL... Q6H6 SQ 07/26/24 00:00 08/25/24 00:00 08/04/24 06:35 4 UNIT Ipratropium [place] (AtrovENT UD) 0.5 mg [id number] IH 07/30/24 18:00 08/29/24 17:59 08/04/24 11:01 0.5 MG Linezolid 300 ml @ 150 mls/hr Q12H IV 08/03/24 13:00 08/13/24 12:59 08/04/24 00:57 150 MLS/HR Magnesium Sulfate 50 ml @ 0 mls/hr PROTOCOL PRN IV hypomagnesemia 07/25/24 18:00 08/24/24 17:59 07/31/24 17:23 25 MLS/HR Meropenem (Merrem 1gm) 1 gm Q12H IVPB 07/27/24 15:30 08/03/24 03:31 DC 08/03/24 03:31 1 GM Meropenem (Merrem 1gm) 1 gm Q12H IVPB 08/03/24 15:30 08/10/24 03:31 08/04/24 03:46 1 GM Metoprolol Tartrate (loprESSOR) 2.5 mg Q12H9 IV 07/31/24 21:00 08/30/24 20:59 08/04/24 09:58 2.5 MG Midazolam HCl 50 ml @ 0 mls/hr PROTOCOL IV 07/26/24 13:30 07/29/24 13:42 DC Nystatin (MycoSTATin 30 GM CREAM) 1 APPL BID TP 07/31/24 21:00 08/30/24 20:59 08/04/24 10:01 1 APPL Ondansetron HCl (zoFRAN 4MG INJ) 4 mg Q6H PRN IVP NAUSEA/VOMITING 07/25/24 18:00 08/24/24 17:59 08/03/24 15:32 4 MG Pharmacy Profile Note (Lace Assessment) 1 each AD MISC 07/27/24 15:30 07/27/24 15:14 DC Pharmacy Profile Note (Lace Assessment) 1 each AD MISC 08/03/24 11:00 08/03/24 11:10 DC Pharmacy Profile Note (Pharmacy Communication) 1 each ONCE MISC 07/27/24 15:00 07/28/24 07:29 DC Pharmacy Profile Note (Pharmacy Communication) 1 each ONCE MISC 08/03/24 11:00 08/03/24 11:47 DC Pharmacy Profile Note (Pharmacy Communication) 1 each ONCE MISC 08/03/24 11:00 08/03/24 11:53 DC Phenol (Sore Throat [place]) 1 spry Q4H PRN PO SORE THROAT 08/01/24 05:00 08/31/24 04:59 08/03/24 10:19 1 SPRY Phenylephrine HCl 100 mg/Sodium Chloride 250 ml @ 0 mls/hr AD PRN IV TITRATE 07/26/24 13:30 08/03/24 13:31 DC 07/30/24 04:41 9.52 MLS/HR Piperacillin Sod/ Tazobactam Sod (Zosyn 3.375gm+NS 50ml) 3.375 gm Q12H IV 07/25/24 20:00 07/25/24 17:27 DC Piperacillin Sod/ Tazobactam Sod (Zosyn 3.375gm+NS 50ml) 3.375 gm Q8H IVPB 07/25/24 19:00 07/26/24 21:40 DC 07/26/24 19:40 3.375 GM Piperacillin Sod/ Tazobactam Sod (Zosyn 3.375gm+NS 50ml) 3.375 gm Q8H IVPB 07/25/24 20:00 07/25/24 18:49 DC Potassium Chloride 100 ml @ 50 mls/hr AD PRN IV POTASSIUM PROTOCOL 07/25/24 18:00 08/24/24 17:59 08/04/24 11:28 50 MLS/HR Propofol 100 ml @ 0 mls/hr AD PRN IV TITRATE 07/26/24 13:30 07/29/24 13:42 DC 07/29/24 02:49 12.2 MLS/HR Sodium Chloride 1,000 ml @ 50 mls/hr Q20H IV 08/04/24 11:30 09/03/24 11:29 08/04/24 11:28 50 MLS/HR Sodium Chloride 1,000 ml @ 125 mls/hr Q8H IV 07/25/24 17:30 07/27/24 16:01 DC 07/27/24 07:58 125 MLS/HR Sodium Chloride (NS 50ml) 50 ml AD IV 07/25/24 17:00 07/25/24 17:29 DC Vancomycin HCl 250 ml @ 125 mls/hr Q12H IV 07/31/24 04:00 08/02/24 04:37 DC 08/01/24 03:10 125 MLS/HR Vancomycin HCl 250 ml @ 125 mls/hr Q12H IV 08/02/24 05:00 08/03/24 11:09 DC 08/02/24 17:22 125 MLS/HR Vancomycin HCl 250 ml @ 125 mls/hr Q24H IV 07/26/24 17:00 07/27/24 15:09 DC 07/26/24 19:55 125 MLS/HR Vancomycin HCl (Vancomycin Protocol) 1 each AD IV 07/25/24 17:00 07/27/24 14:55 DC Vancomycin HCl (Vancomycin Protocol) 1 each AD IV 07/30/24 15:00 08/03/24 11:09 DC Wound Care/ Dressing Products (Venelex Ointment) BID TP 07/31/24 21:00 08/30/24 20:59 08/04/24 10:01 1 GM DIAGNOSTICS / RADIOLOGY: [ ] ASSESSMENT: Septic shock requiring pressors Bacterial peritonitis POA Bowel perforation w/ [id number] S/P exploratory laparotomy with drainage of intra-abdominal abscess/ventral hernia repair/small-bowel resection/NS of adhesions/left open and a wound VAC on 07/26/24 per High risk for ischemic bowel-POA Intractable abdominal pain-POA Acute hypokalemia-POA this is Dehydration-POA SHARMILA not POA Lactic acidosis-POA Hyperglycemia 2/2 uncontrolled diabetes mellitus Primary HTN HX of colitis HX of inflammatory bowel disease (Crohn's Disease) HX of cardiac arrest HX of BLE cellulitis Recent hospitalization for UTI with outpatient Zosyn antibiotic with Dr. Diaz PLAN: Continue clear liquids Follow moreland and BYRON outputs Continue to follow surgical input and recommendation. Diet per general surgery recommendations Continue linezolid Continue meropenem Continue glargine 15U BID Continue sliding scale Continue hypoglycemia protocol Prognosis is guarded Disposition: Pending improvement in clinical condition, LTAC placement FRANSICO HOWELL MD Aug 04, 2024 14:26
[2024-08-04] MEDS: M.V.I. IV [ADULT] 10 ML in CLINIMIX-E 5%AA /D15%W 2000ML 2,000 ML IV ONE (14:31)
--- NOTE | 2024-08-04 16:28 | NUR ---
ASKED IF ITS OKAY TO GIVE PT SOME WATER PER PT REQUEST. REPORTED TO OF 3 [employer]- DARK GRE[employer]. VIA TELEPHONE.
--- NOTE | 2024-08-04 16:47 | NUR ---
WATER DR. DAMIAN RESPONDED THAT SHE CAN HAVE WATER.
--- NOTE | 2024-08-04 18:19 | NUR ---
LEFT ARM VIA TELEPHNE. DR. HOWELL AWARE OF SWOLLEN ARM. NO PAIN.
[2024-08-05] VITALS (12 sets, daily range): BP systolic 110–132; BP diastolic 74–78; PULSE 72–108; RESP 16–20; TEMP 97.4–97.9; O2SAT 95–97
[2024-08-05 05:33] LABS: HEMATOCRIT 24.6 % (36-48); MEAN CORPUSCULAR HEMOGLOBIN 26.8 pg (27.0-33.0); MEAN CORPUSCULAR HGB CONC 31.3 g/dL (32.0-36.0); MEAN CORPUSCULAR VOLUME 85.7 fL (79-99); RED BLOOD CELL COUNT(AUTO) 2.87 MIL/uL (4.00-5.50); RED CELL DISTRIBUTION WIDTH 17.8 % (11.0-15.5); WHITE BLOOD COUNT (AUTO) 23.2 K/uL (4.8-10.8)
[2024-08-05 05:51] LABS: BILIRUBIN,TOTAL 0.7 mg/dL (0.2-1.0); CREATININE 0.7 mg/dL (0.5-1.0); POTASSIUM 3.4 mmol/L (3.5-5.1); TOTAL PROTEIN, SERUM 4.5 g/dL (6.0-8.3)
--- NOTE | 2024-08-05 10:28 | PN ---
[facility] PROGRESS NOTE Date of Service: Aug 05, 2024 Time of Service: 10:25 SUBJECTIVE: 59-year-old female the past medical history of hypertension who presented to the hospital secondary to abdominal pain. Patient stated for the past 3-4 days she has been having increasing abdominal pain with abdominal distention. She was feeling nauseated and had episodes of emesis at home. She denied any hematemesis, melena, hematochezia. Patient was previously hospitalized in [facility] around one month ago secondary to colitis. GI was consulted during admission and patient underwent colonoscopy with findings showing severe inflammation of the entire colon concerning for pancolitis. She was treated with IV steroids and and was to start patient on Remicade as outpatient. She denied any fever, chills, diarrhea. She was going to follow up with GI as outpatient on 07/26/24 but had worsening pain which caused her to come to the hospital for further evaluation. Labs in the ED were notable for white count of 10.3, hemoglobin was 12.8, platelet count was 363 K, sodium was 138, potassium was 2.8, creatinine is 1.0, blood glucose was 269, lactic acid on presentation was 8.[address] abdomen pelvis which showed free intraperitoneal air concerning for bowel perforation. There is a anterior ventral wall hernia with bowel content and air collection and fat stranding concerning for bowel perforation. Her colon was also noted to be inflamed. CT was performed without contrast. 07/26 BP 135/83, tachycardic 102, saturating 100% 2 L nasal cannula. CBC shows hemoglobin 11.0, hematocrit 35.9, WBC 18.8, platelet count of 203. Sodium 141, potassium 3.7, BUN of 29, creatinine slightly worse today at 1.2. ABG with pH 7.51, pCO2 of 28, PO2 62.6, bicarb of 22.5. Serology to include influenza, SARS and group A negative. Results of chest x-ray pending. Patient is scheduled to be taken to the OR today. 07/27 the patient remains admitted to the intensive care unit, intubated, on mechanical ventilation, status post exploratory laparotomy, postoperative day one, case discussed with the RN, patient on propofol, Jose Armando-Synephrine, wound VAC to the abdomen in place, noted to have right IJ line in place. Getting broad- spectrum IV antibiotics. Blood pressure 130/79, heart rate of 83, saturating 100% on mechanical ventilation, FiO2 40%. Leukocytosis is worse today at 28.1, drop in hemoglobin to 9.7, hematocrit 30.8, with a platelet count of 148. Potassium level 3.6, magnesium 1.6. Lactic acid from 8.2 down to 1.8 ABG with pH 7.4, pCO2 34, PO2 145, bicarb of 20. Chest x-ray shows bilateral lower lung infiltrates. Family at Bedside, updated 07/28 the patient has been seen and examined in the intensive care unit, she remains intubated, mechanical ventilation, on fentanyl, propofol and Jose Armando- Synephrine, getting broad-spectrum antibiotics, BP 112/84, afebrile, saturating 100% on mechanical ventilation, FiO2 40%. CBC with a hemoglobin 8.4, hematocrit 27.8, WBC of 16.3, platelet count of 89. Patient is status post exploratory laparotomy with drainage of intra-abdominal abscess/ventral hernia repair/small- bowel resection/NS of adhesions/left open and wound VAC on 07/23 05/28 by General surgery. Results of septic workup reviewed, Gram-negative rods. Patient with a possible ischemic colitis, plan to take the patient back to the operating room for further exploration. 07/29 Pt seen at bedside, no acute events overnight. She is s/p ex-lap with cholecystectomy. Currently on pressors, will wean as able. Remains intubated, PEEP 5, FiO2 30%, will continue with daily sedation vacations. She is mildly tachycardic. She is NPO, continue TPN per general surgery. WBC increased from 16.3 up to 16.8, Hgb improved from 8.4 up to 8.6, platelets decreased from 89 do wn to 76 07/30 Pt seen at bedside, no acute events overnight. She is s/p ex-lap with small bowel resection, appendectomy and drainage of intraabdominal abscess with wound vac post op day 4, repeat ex-lap with cholecystectomy, repair of left flank and ventral hernias post op day 2. Currently on pressors, will wean as able. Remains intubated, PEEP 5, FiO2 30%, she was on sedation vacation, in no acute distress, possible extubation today, will defer to critical care. She is NPO, continue TPN per general surgery. WBC improved from 16.8 down to 10.6, Hgb stable at 8.3, similar to yesterday, platelets improved from 76 up to 90, remai nder of her labs are relatively unremarkable. 07/31 patient seen at bedside, no acute events overnight. She is status post ex lap with small-bowel resection, appendectomy and drainage of intra-abdominal abscess with wound VAC postop day five, repeat ex lap with cholecystectomy, repair of left flank and ventral hernias postop day three. She has been successfully extubated, we will continue to try and wean pressors. Hemoglobin stable at 7.2, similar to yesterday, platelets decreased from 119-98, potassium mildly low at 3.2, we will be repleted according to protocol, remainder of her labs are relatively unremarkable. 08/02 patient seen at bedside, no acute events overnight. She is status post ex lap with small-bowel resection, appendectomy and drainage of intra-abdominal abscess with wound VAC postop day 6 repeat ex lap with cholecystectomy, repair of left flank and ventral hernias postop day 4. She has been successfully extubated, and weaned off pressors. She was transfused yesterday, Hgb improved from 6.9 up to 9.7, platelets improved to 166, potassium mildly low at 3.2, we will be repleted according to protocol, remainder of her labs are relatively unremarkable. She continues on TPN, diet to be addressed by general surgery. Only complaint is continued xuan-incisional pain 08/03 patient seen at bedside, no acute events overnight. At bedside she is in no acute distress, she has no complaints. She is status post ex lap with small- bowel resection, appendectomy and drainage of intra-abdominal abscess with wound VAC postop day 7 repeat ex lap with cholecystectomy, repair of left flank and ventral hernias postop day 5. WBC increased from 8.0 up to 27.1, this seemed to be and anomaly so a repeat CBC was ordered and WBC increased again to 34.4. Patient has been bolused 1 L of LR, repeat lactic acid was ordered and was mildly elevated at 2.5, wounds were examined at bedside and found to be clean dry and intact with no drainage or erythema. The BYRON drains are still draining serosanguineous fluid there does not appear to be sick succus suggesting bowel perforation. Discussed case with General surgery and Infectious Disease, we agreed to order a CT scan of the abdomen/pelvis to determine if there is a new abscess forming. Patient has not had watery bowel movements to suggest C diff and she is already on fluconazole. Hemoglobin increased from 8.7 up to 11.2, remainder of her labs are relatively unremarkable. Antibiotics were adjusted to Zyvox and meropenem. Further recommendations per Infectious Disease and General surgery. 08/04 patient seen at bedside, no acute events overnight. She has no complaints at bedside, reports her pain has improved today. She was made NPO yesterday after she vomited, we will resume clear liquid diet per General surgery recommendations. She is hemodynamically stable saturating well on room air, her WBC improved from 34.4 down to 30.8, hemoglobin decreased from 11.2 down to 8.6, potassium decreased from 4.1 down to 3.2, remainder of her labs are relatively unremarkable. Pt has been referred for LTAC, follow up with case management 08/05 patient is seen and examined, comfortable in bed, following commands, nutri tional support via TPN, BP 123/75, heart rate of 103, afebrile, saturating 97% room air. CBC shows a hemoglobin of 7.7, hematocrit 24.6, WBC 23.2, platelet count of 266. Sodium 137, potassium 3.4, BUN of 49, creatinine 0.7. The patient remains NPO. We will recheck CBC, transfuse 1 unit of PRBC if hemoglobin less than seven, replace electrolytes IV per protocol, continue to follow surgical input and recommendation, pending LTAC. Patient to continue broad-spectrum IV antibiotics with the meropenem, linezolid. Family at bedside, updated REVIEW OF SYSTEMS 12 point ROS negative unless noted in HPI PHYSICAL EXAM GENERAL APPEARANCE: Patient intubated, on mechanical ventilation. NEUROLOGICAL: Cranial nerves II-XII grossly intact. Motor is 5/5 in bilateral upper and lower extremities proximal to distal. No sensory deficits. HEENT: Face is symmetric. Pupils are equal and reactive. Extraocular movements are intact. NECK: Supple. No JVD. No thyromegaly. No submental, submandibular, pre- /postauricular, occipital or supraclavicular lymphadenopathy. CHEST: Normal chest expansion. No Telemetry. LUNGS: Absence of any rales, rhonchi or any wheezing. CARDIOVASCULAR: Regular. S1 and S2 normal. No appreciable rubs, murmurs or gallops. ABDOMEN: Abdominal wound VAC in place : Deferred. No [place]. EXTREMITIES: Non-edematous and not cyanotic. No clubbing. Good capillary refill. SKIN: No skin breakdown. Vital Signs (last 8hr) Date Time Temp Pulse Resp B/P (MAP) Pulse Ox O2 Delivery O2 Flow Rate FiO2 08/05/24 09:36 103 123/75 08/05/24 08:00 97.9 103 18 123/75 97 Room Air 08/05/24 07:26 106 18 08/05/24 07:26 106 18 N/A Room Air 21 08/05/24 04:00 97.5 72 20 132/78 94 Room Air LABS: Laboratory: Test 08/05/24 05:34 08/05/24 05:15 08/04/24 06:41 08/04/24 05:56 Range/Units Whole Blood Glucose 195 H 70-110 MG/DL White Blood Count 23.2 H 4.8-10.8 K/uL Red Blood Count 2.87 L 4.00-5.50 MIL/uL Hemoglobin 7.7 L 12.0-16.0 g/dL Hematocrit 24.6 L 36-48 % Mean Corpuscular Volume 85.7 79-99 fL Mean Corpuscular Hemoglobin 26.8 L 27.0-33.0 pg Mean Corpuscular Hemoglobin Concent 31.3 L 32.0-36.0 g/dL Red Cell Distribution Width 17.8 H 11.0-15.5 % Platelet Count 266 # 130-400 K/uL Mean Platelet Volume 12.0 H 7.5-10.5 fL Nucleated Red Blood Cells 0.0 0.0-0.19 % Sodium Level 137 136-145 mmol/L Potassium Level 3.4 L 3.5-5.1 mmol/L Chloride Level 101 101-111 mmol/L Carbon Dioxide Level 30 21-32 mmol/L Blood Urea Nitrogen 49 H 7-18 mg/dL Creatinine 0.7 0.5-1.0 mg/dL Glomerular Filtration Rate Calc 99 >90 mL/min Random Glucose 199 H 70-105 mg/dL Total Calcium 8.1 L 8.5-10.1 mg/dL Total Bilirubin 0.7 0.2-1.0 mg/dL Aspartate Amino Transf (AST/SGOT) 26 10-37 U/L Alanine Aminotransferase (ALT/SGPT) 47 12-78 U/L Alkaline Phosphatase 207 H 50-136 U/L Total Protein 4.5 L 6.0-8.3 g/dL Albumin 1.0 L 3.5-5.0 g/dL Segmented Neutrophils % 94 H 40-70 % Lymphocytes % (Manual) 6 L 22-44 % Differential Comment MANUAL DIFFERENTIAL White Cell Morphology Comment HYPERSEGMENT NEUT 1+ Platelet Morphology Comment ADEQUATE Red Blood Cell Morphology See comments Bedside Glucose Comment Notified Nurse Test 08/03/24 11:50 Range/Units Lactic Acid Level 1.9 0.8-2.5 mmol/L Current Medications Medications (Trade) Dose Ordered Sig/Alexandra Route PRN Reason Start Time Stop Time Status Last Admin Dose Admin Albumin Human 100 ml @ 50 mls/hr AD IV 07/28/24 08:00 07/31/24 07:59 DC Cefepime HCl (MAXipime 2 gm vial) 2 gm Q24H IVPB 07/26/24 22:00 07/27/24 14:55 DC 07/26/24 22:54 2 GM Dexmedetomidine/ Sodium Chloride (PRECEdex 400MCG/ 100ML-NS) 400 mcg PROTOCOL PRN IV agitation 07/29/24 14:00 08/03/24 13:31 DC 07/30/24 01:18 400 MCG Dextrose (D50w) 50 ml AD PRN IV HYPOGLYCEMIA PROTOCOL 07/27/24 16:00 08/26/24 15:59 Famotidine (Pepcid 20mg Vial) 20 mg Q24H IV 07/25/24 21:00 08/24/24 20:59 08/04/24 22:04 20 MG Fat Emulsion Intravenous 250 ml @ 42 mls/hr QMOFR IV 07/29/24 09:00 08/28/24 08:59 08/05/24 09:35 42 MLS/HR Fentanyl Citrate 100 ml @ 0 mls/hr PROTOCOL IV 07/26/24 13:30 07/27/24 12:04 DC Fentanyl Citrate 100 ml @ 0 mls/hr PROTOCOL IV 07/27/24 12:30 07/29/24 13:42 DC 07/29/24 02:03 5 MLS/HR Fentanyl/Sodium Chloride 250 ml @ 0.1 mls/hr PROTOCOL IV 07/27/24 12:00 07/27/24 12:05 DC Fluconazole/ Sodium Chloride 100 ml @ 100 mls/hr Q24H IV 07/26/24 13:30 08/25/24 13:29 08/04/24 14:32 100 MLS/HR Furosemide (LASix 20MG VIAL) 20 mg Q8H IV 07/28/24 15:30 08/27/24 15:29 08/05/24 06:36 20 MG Glucagon (Glucagon 1mg Kit) 1 mg AD PRN IM HYPOGLYCEMIA PROTOCOL 07/27/24 16:00 08/26/24 15:59 Hydromorphone HCl (DiLAUDid 0.5MG INJ) 0.5 mg Q4H PRN IVP SEVERE PAIN (7-10) 07/29/24 14:00 08/03/24 13:59 DC 08/02/24 11:44 0.5 MG Insulin Glargine (LANtus 100 UNITS/ML 10 ML VIAL) 5 units HS SQ 07/27/24 21:00 07/29/24 09:47 DC 07/28/24 20:48 5 UNITS Insulin Glargine (LANtus 100 UNITS/ML 10 ML VIAL) 15 units BID SQ 07/29/24 21:00 08/28/24 20:59 08/05/24 09:39 15 UNITS Insulin Glargine (LANtus 100 UNITS/ML 10 ML VIAL) 15 units HS SQ 07/29/24 21:00 07/29/24 13:43 DC Insulin Human Regular (humuLIN R 100 UNIT/ML 3ML) INSULIN SLIDING SCAL... Q6H6 SQ 07/26/24 00:00 08/25/24 00:00 08/05/24 06:37 2 UNIT Ipratropium [place] (AtrovENT UD) 0.5 mg [id number] IH 07/30/24 18:00 08/29/24 17:59 08/05/24 07:24 0.5 MG Linezolid 300 ml @ 150 mls/hr Q12H IV 08/03/24 13:00 08/13/24 12:59 08/05/24 01:00 150 MLS/HR Magnesium Sulfate 50 ml @ 0 mls/hr PROTOCOL PRN IV hypomagnesemia 07/25/24 18:00 08/24/24 17:59 07/31/24 17:23 25 MLS/HR Meropenem (Merrem 1gm) 1 gm Q12H IVPB 07/27/24 15:30 08/03/24 03:31 DC 08/03/24 03:31 1 GM Meropenem (Merrem 1gm) 1 gm Q12H IVPB 08/03/24 15:30 08/10/24 03:31 08/05/24 03:32 1 GM Metoprolol Tartrate (loprESSOR) 2.5 mg Q12H9 IV 07/31/24 21:00 08/30/24 20:59 08/05/24 09:36 2.5 MG Midazolam HCl 50 ml @ 0 mls/hr PROTOCOL IV 07/26/24 13:30 07/29/24 13:42 DC Nystatin (MycoSTATin 30 GM CREAM) 1 APPL BID TP 07/31/24 21:00 08/30/24 20:59 08/05/24 09:37 1 APPL Ondansetron HCl (zoFRAN 4MG INJ) 4 mg Q6H PRN IVP NAUSEA/VOMITING 07/25/24 18:00 08/24/24 17:59 08/03/24 15:32 4 MG Pharmacy Profile Note (Lace Assessment) 1 each AD MISC 07/27/24 15:30 07/27/24 15:14 DC Pharmacy Profile Note (Lace Assessment) 1 each AD MISC 08/03/24 11:00 08/03/24 11:10 DC Pharmacy Profile Note (Pharmacy Communication) 1 each ONCE MISC 07/27/24 15:00 07/28/24 07:29 DC Pharmacy Profile Note (Pharmacy Communication) 1 each ONCE MISC 08/03/24 11:00 08/03/24 11:47 DC Pharmacy Profile Note (Pharmacy Communication) 1 each ONCE MISC 08/03/24 11:00 08/03/24 11:53 DC Phenol (Sore Throat [place]) 1 spry Q4H PRN PO SORE THROAT 08/01/24 05:00 08/31/24 04:59 08/03/24 10:19 1 SPRY Phenylephrine HCl 100 mg/Sodium Chloride 250 ml @ 0 mls/hr AD PRN IV TITRATE 07/26/24 13:30 08/03/24 13:31 DC 07/30/24 04:41 9.52 MLS/HR Piperacillin Sod/ Tazobactam Sod (Zosyn 3.375gm+NS 50ml) 3.375 gm Q12H IV 07/25/24 20:00 07/25/24 17:27 DC Piperacillin Sod/ Tazobactam Sod (Zosyn 3.375gm+NS 50ml) 3.375 gm Q8H IVPB 07/25/24 19:00 07/26/24 21:40 DC 07/26/24 19:40 3.375 GM Piperacillin Sod/ Tazobactam Sod (Zosyn 3.375gm+NS 50ml) 3.375 gm Q8H IVPB 07/25/24 20:00 07/25/24 18:49 DC Potassium Chloride 100 ml @ 50 mls/hr AD PRN IV POTASSIUM PROTOCOL 07/25/24 18:00 08/24/24 17:59 08/05/24 06:35 50 MLS/HR Propofol 100 ml @ 0 mls/hr AD PRN IV TITRATE 07/26/24 13:30 07/29/24 13:42 DC 07/29/24 02:49 12.2 MLS/HR Sodium Chloride 1,000 ml @ 50 mls/hr Q20H IV 08/04/24 11:30 09/03/24 11:29 08/05/24 05:33 50 MLS/HR Sodium Chloride 1,000 ml @ 125 mls/hr Q8H IV 07/25/24 17:30 07/27/24 16:01 DC 07/27/24 07:58 125 MLS/HR Sodium Chloride (NS 50ml) 50 ml AD IV 07/25/24 17:00 07/25/24 17:29 DC Vancomycin HCl 250 ml @ 125 mls/hr Q12H IV 07/31/24 04:00 08/02/24 04:37 DC 08/01/24 03:10 125 MLS/HR Vancomycin HCl 250 ml @ 125 mls/hr Q12H IV 08/02/24 05:00 08/03/24 11:09 DC 08/02/24 17:22 125 MLS/HR Vancomycin HCl 250 ml @ 125 mls/hr Q24H IV 07/26/24 17:00 07/27/24 15:09 DC 07/26/24 19:55 125 MLS/HR Vancomycin HCl (Vancomycin Protocol) 1 each AD IV 07/25/24 17:00 07/27/24 14:55 DC Vancomycin HCl (Vancomycin Protocol) 1 each AD IV 07/30/24 15:00 08/03/24 11:09 DC Wound Care/ Dressing Products (Venelex Ointment) BID TP 07/31/24 21:00 08/30/24 20:59 08/05/24 09:36 1 GM DIAGNOSTICS / RADIOLOGY: [ ] ASSESSMENT: Septic shock requiring pressors Bacterial peritonitis POA Bowel perforation w/ [id number] S/P exploratory laparotomy with drainage of intra-abdominal abscess/ventral hernia repair/small-bowel resection/NS of adhesions/left open and a wound VAC on 07/26/24 per High risk for ischemic bowel-POA Intractable abdominal pain-POA Acute hypokalemia-POA this is Dehydration-POA SHARMILA not POA Lactic acidosis-POA Hyperglycemia 2/2 uncontrolled diabetes mellitus Primary HTN HX of colitis HX of inflammatory bowel disease (Crohn's Disease) HX of cardiac arrest HX of BLE cellulitis Recent hospitalization for UTI with outpatient Zosyn antibiotic with Dr. Diaz PLAN: Remains NPO. Follow more[place] and BYRON outputs Continue to follow surgical input and recommendation. Diet per general surgery recommendations Continue linezolid Continue meropenem Continue glargine 15U BID Continue sliding scale Continue hypoglycemia protocol Prognosis is guarded Disposition: Pending improvement in clinical condition, LTAC placement MICKEY FINNEY MD Aug 05, 2024 10:28
--- NOTE | 2024-08-05 11:14 | PN ---
[facility] PROGRESS NOTE Date Patient Seen: Aug 05, 2024 Time of Visit: 11:09 Supervising Physician: [Dr. Rivera] Primary Care Physician: [Dr. Villarreal of [facility] ] Outpatient Specialists: [GI: Dr. Solitario ] Inpatient Consults: [Dr. Quintero of surgery ] PROBLEM LIST: Septic shock from below requiring pressors,resolving Bacterial peritonitis POA + Enterococcus Raffinosus and Klebsiella pneumoniae Bowel perforation w/ Pneumoperitoneum-POA S/P exploratory laparotomy with drainage of intra-abdominal abscess/ventral hernia repair/small-bowel resection/lysis of adhesions/left open and a wound VAC on 07/26/24 per Removal of previously placed ABThera wound VAC & Placement of Seprafilm adhesion barrier 07/28/24 per Incarcerated ventral hernia POA Primary repair ventral hernia 07/28/24 Left Lateral Hernia POA Primary repair left flank hernia 07/28/24 Acute cholecystitis, POAopen cholecystectomy on 07/28/24 High risk for ischemic bowel-POA Acute hypokalemia-POA Dehydration-POA SHARMILA not POA Lactic acidosis-POA Hyperglycemia 2/2 uncontrolled diabetes mellitus Primary HTN HX of colitis HX of inflammatory bowel disease (Crohn's Disease) Recent hospitalization for UTI with outpatient Zosyn antibiotic with Dr. Diaz INTERVAL HISTORY: This is Day 1 open cholecystectomy with removal of previously placed ABTHera wound VAC, placement of ceftriaxone home adhesion barrier, primary repair of left flank hernia and repair of ventral hernia per . no further plans of taking pt back to OR per report. Per RN no major overnight event. Patient is on sedation vacation this morning still 117 to wake up grimaces to movement. Will attempt CPAP this morning. Weaning Jose Armando-Synephrine currently yesterday 0.1 mcg/kg per minute. Lines: Right IJ Cordis, arterial line, OG tube, ET tubes, Troy catheter, DP is. Left BYRON drain 320 mL with red BYRON draining 120 mL. She remains NPO on TPN at 75 mL/hour. Urine output of 3.6 L,-1.9 L balance Patient's problems has been updated of plan of care and verbalizes alicia antoine. He continues IV antibiotics. Intra-abdominal fluid culture growing positive for Klebsiella pneumoniae and Enterococcus Raffinosus. White count is 9.8 similar to yesterday, H&H stable 8.61/28.5 platelet count trending down 76 K today. Creatinine of 0.7 with GFR of 99 kidneys are improved. Magnesium of 1.7 covered per protocol. Blood sugar of 311 mg/dL insulin adjusted. X-ray stable. ET tube 4.4 cm with the ld. No pneumothorax. 07/30/2024: At the time of my evaluation, the patient was lying in bed. She remains intubated and on mechanical vent support. On the monitor, the patient was marginally tachycardic, tachypneic and blood pressure within normal ranges. Laboratory data today showed improved WBC down to 10.6 there was no profound an emia or thrombocytopenia. Chemistry panel showed no major electrolyte derangement or renal parameter changes. No new microbiology data for review today. Chest imaging showed bilateral pneumonic infiltrates and cardiomegaly. No other complaint. 07/31/2024: At the time of my evaluation, the patient was lying in bed. Family member and staff nurse are present at the bedside. Per the staff nurse, no acute events overnight. On the monitor, the patient had no febrile events, no tachycardia or tachypnea. Blood pressure between normal range and she remains on nasal cannula for oxygen supplementation. Laboratory data today , showed no leukocytosis, there was significant anemia 7.3/23.5 and platelet count of 119. No chemistry was collected for today. Imaging for today still shows pulmonary vascular congestion and pneumonic infiltrates bilaterally. Troy catheter remains in place and patient had a documented urinary output of 2700 mL and a net balance of -28.0. No other complaint 08/01/2024: At the time of my evaluation, the patient was lying in bed. Staff nurse reports no acute events overnight. On the monitor, the patient is with borderline tachycardia, no tachypnea and normotensive. She remains on a nasal cannula for oxygen supplementation. Surgical site, is benign. BYRON drain x2 totaling 335 mL out voided output of 4800 mL over the past 24 hours with a net balance of -2585.1. Laboratory data today did show a drop in H&H to 7.1/23.4 and a platelet count of 111. Chemistry panel showed a potassium of 3.2, renal parameters were not of concern. No new microbiology data for review. Chest x- ray today showed bilateral pneumonic infiltrate and a right mid lung atelectasis. There was also borderline cardiomegaly. Currently, the patient remains on antibiotic coverage with meropenem, fluconazole and vancomycin. She is also on nutritional support with TPN. No other complaint. 08/02/2024: At the time of my evaluation, the patient was lying in bed. Staff nurse reports no acute events overnight. The patient is breathing on room air. On the monitor, parameters are unremarkable. Laboratory data showed a hemoglobin of 9.7 and hematocrit of 31.3. Platelet count 166. Chemistry panel was notable for a potassium of 3.2 otherwise unremarkable no new imaging for review today. Currently, the patient remains on TPN for nutritional support and is on antibiotic therapy with Merrem, vanco and fluconazole. No other complaint. 08/03 patient is evaluated at bedside. Her WBCs significantly increased to 27 then 34 up from eight yesterday. Her hemoglobin has remained stable at 11.2. No fever overnight. Her BYRON drain has normal serous fluid with minimal output since yesterday. She is pending a repeat CT abdomen. General surgery is aware, pending further recommendation. Patient states her pain is actually improved from yesterday. 08/04 patient was evaluated at bedside. She had two episodes of nonbloody emesis yesterday. She remains NPO today and continues on TPN. General surgery has ordered IV fluids. Her WBC his downtrending but still significantly elevated at 30. Patient states her pain is much decreased. No fever reported overnight. Continues on IV antibiotic. 08/05 patient is evaluated at bedside. Her WBCs downtrending currently 223. Hemoglobin is persistently decreasing, from 11.22 days ago to 7.7 today. No signs of bleeding per BYRON drain which has minimal normal serous fluid and Troy bag which has normal colored urine. Continues NPO with TPN. No current fever or abdominal pain. No nausea or vomiting. Continue to follow General surgery recommendation. REVIEW OF SYSTEMS: 12- point system review was carried out, pertinent positive documented above otherwise negative. PHYSICAL EXAM: GENERAL: Critically- ill appearing. HEENT: Sclera non icteric, moist mucosa pupils3 mm echo and sluggish NECK: Supple, no JVD, trachea midline right IJ Cordis LUNGS: Diminished breath sounds bilaterally. No wheezes HEART: Regular rate and rhythm. Normal S1 and S2, without murmurs ABD: Obese abdomen, mid abdomen dressing clean dry and intact. Bilateral BYRON present. Draining serosanguineous EXT: No clubbing cyanosis or edema. Troy in situ NEURO: Awake, alert and follows commands. Vital Signs (last 8hr) Date Time Temp Pulse Resp B/P (MAP) Pulse Ox O2 Delivery O2 Flow Rate FiO2 08/05/24 09:36 103 123/75 08/05/24 08:00 97.9 103 18 123/75 97 Room Air 08/05/24 07:26 106 18 08/05/24 07:26 106 18 N/A Room Air 21 08/05/24 04:00 97.5 72 20 132/78 94 Room Air LABS: Hematology Labs: Test 08/05/24 05:15 08/04/24 06:41 Range/Units White Blood Count 23.2 H 4.8-10.8 K/uL Red Blood Count 2.87 L 4.00-5.50 MIL/uL Hemoglobin 7.7 L 12.0-16.0 g/dL Hematocrit 24.6 L 36-48 % Mean Corpuscular Volume 85.7 79-99 fL Mean Corpuscular Hemoglobin 26.8 L 27.0-33.0 pg Mean Corpuscular Hemoglobin Concent 31.3 L 32.0-36.0 g/dL Red Cell Distribution Width 17.8 H 11.0-15.5 % Platelet Count 266 # 130-400 K/uL Mean Platelet Volume 12.0 H 7.5-10.5 fL Nucleated Red Blood Cells 0.0 0.0-0.19 % Segmented Neutrophils % 94 H 40-70 % Lymphocytes % (Manual) 6 L 22-44 % Differential Comment MANUAL DIFFERENTIAL White Cell Morphology Comment HYPERSEGMENT NEUT 1+ Platelet Morphology Comment ADEQUATE Red Blood Cell Morphology See comments Chemistry Labs: Test 08/05/24 05:34 08/05/24 05:30 08/05/24 05:15 08/04/24 05:56 Range/Units Whole Blood Glucose 195 H 70-110 MG/DL Magnesium Level 1.80 1.80-2.40 mg/dL Sodium Level 137 136-145 mmol/L Potassium Level 3.4 L 3.5-5.1 mmol/L Chloride Level 101 101-111 mmol/L Carbon Dioxide Level 30 21-32 mmol/L Blood Urea Nitrogen 49 H 7-18 mg/dL Creatinine 0.7 0.5-1.0 mg/dL Glomerular Filtration Rate Calc 99 >90 mL/min Random Glucose 199 H 70-105 mg/dL Total Calcium 8.1 L 8.5-10.1 mg/dL Total Bilirubin 0.7 0.2-1.0 mg/dL Aspartate Amino Transf (AST/SGOT) 26 10-37 U/L Alanine Aminotransferase (ALT/SGPT) 47 12-78 U/L Alkaline Phosphatase 207 H 50-136 U/L Total Protein 4.5 L 6.0-8.3 g/dL Albumin 1.0 L 3.5-5.0 g/dL Bedside Glucose Comment Notified Nurse Test 08/03/24 11:50 Range/Units Lactic Acid Level 1.9 0.8-2.5 mmol/L DIAGNOSTICS / RADIOLOGY RESULTS: [ ] PLAN Follow General surgery recommendation Monitor hemoglobin closely Keep NPO, continue TPN Continue IV antibiotics Monitor BYRON tube drainage Monitor for signs of sepsis Monitor hemodynamics Further management based on above NEURO: Minimize central acting medications as possible. Maintain fall precautions, adequate lighting during the day PULMONARY: Supplemental 02 as needed. Maintain aspiration precautions at all times CARDIOVASCULAR: Follow hemodynamics. Vital signs per facility protocol GI & NUTRITION: Continue with nutritional support. Continue stool softeners and laxatives as needed. KIDNEYS & ELECTROLYTES: Strict monitoring of intake, output and overall fluid balance. Avoid nephrotoxic medications to the extent possible. Medications to be dosed according to renal function. Monitor electrolytes and replace as needed ENDOCRINE: Maintain blood glucose between 100-180 at all times. Hypoglycemia protocol in place INFECTIOUS DISEASE: Trend temperature, WBC and procalcitonin level Follow cultures, deescalate antibiotics as soon as possible. Panculture if new onset fever ONCOLOGY/HEMATOLOGY/COAGULATION: Monitor for s/s of bleeding Monitor hemoglobin, coagulation studies as needed SKIN: Pressure ulcer prevention per facility protocol Specialty mattress ORTHO/REHAB: Continue PT/OT Prophylaxis: Continue GI and DVT prophylaxis Code Status: Full Resuscitation Disposition: TBD Other: Patient was seen and case discussed with gene CHAUDHARI. Plan of care was discussed and agreed upon. Total time spent on patient care is 48 minutes. Th is does not include time spent on procedures. CHANDA MARROQUIN Aug 05, 2024 11:14
[2024-08-05] MEDS ORDERED: M.V.I. IV [ADULT] 10 ML in CLINIMIX-E 5%AA /D15%W 2000ML 2,000 ML IV ONE (14:00)
[2024-08-05 14:13] LABS: HEMATOCRIT 27.1 % (36-48); MEAN CORPUSCULAR HEMOGLOBIN 27.2 pg (27.0-33.0); MEAN CORPUSCULAR HGB CONC 32.1 g/dL (32.0-36.0); MEAN CORPUSCULAR VOLUME 84.7 fL (79-99); RED BLOOD CELL COUNT(AUTO) 3.2 MIL/uL (4.00-5.50); RED CELL DISTRIBUTION WIDTH 17.8 % (11.0-15.5); WHITE BLOOD COUNT (AUTO) 25.7 K/uL (4.8-10.8)
[2024-08-05 14:27] LABS: CREATININE 0.6 mg/dL (0.5-1.0); POTASSIUM 3.4 mmol/L (3.5-5.1)
--- NOTE | 2024-08-05 14:28 | PN ---
GASTROENTEROLOGY PROGRESS NOTE Date of Visit: Aug 05, 2024 Time of Visit: 14:28 Events / Notes: [ ] Review of Systems: CONSTITUTIONAL: No malaise or change in sensation of wellbeing. ENMT: No rhinorrhea, otorrhea, sinus pain, ear ache. CARDIOVASCULAR: No angina, palpitations, orthopnea or paroxysmal dyspnea. RESPIRATORY: No SOB. GASTROINTESTINAL: No abdominal pain, nausea, vomiting, diarrhea, hematemesis, melena or change in the patient's habitual bowel movements consistency/number. GENITOURINARY: No dysuria, hematuria or change in bladder continence. MUSCULOSKELETAL: No new muscle pain or decrease in muscular strength. No new joint swelling, redness or tenderness. SKIN: No new rash. Physical Exam: GEN: Awake, alert, oriented in person, time and place, and in no acute distress. HEENT: No sinus tenderness. Tympanic membranes were not examined. No rhinorrhea. Oral pharyngeal mucosa is pink, moist and within normal limits. Neck is supple with no cervical lymphadenopathy, thyromegaly or JVD. CHEST: Inspection, palpation and percussion of the chest were unremarkable. Lung auscultation revealed normal breath sounds bilaterally. CARDIAC: PMI is within normal limits. Heart sounds are regular. Normal S1, S2. No gallop or murmur. ABD: Soft, non-tender and not distended. No peritoneal signs on palpation. No organomegaly. Normal bowel sounds. EXT: No cyanosis or clubbing. No edema. SKIN: Intact. No rashes. JOINTS: No evidence of synovitis or acute arthritis. NEURO: Alert and oriented to name, place and person. Cranial nerve examination is unremarkable. No focal motor deficits. Normal speech. Gait is normal. Strength is normal. Vital Signs (last 8hr) Date Time Temp Pulse Resp B/P (MAP) Pulse Ox O2 Delivery O2 Flow Rate FiO2 08/05/24 12:00 97.7 101 19 125/78 95 Room Air 08/05/24 11:26 105 18 08/05/24 09:36 103 123/75 08/05/24 08:00 97.9 103 18 123/75 97 Room Air 08/05/24 07:26 106 18 08/05/24 07:26 106 18 N/A Room Air 21 Laboratory: [ ] Laboratory: Test 08/05/24 14:09 08/05/24 12:04 08/04/24 06:41 08/04/24 05:56 Range/Units White Blood Count 25.7 H 4.8-10.8 K/uL Red Blood Count 3.20 L 4.00-5.50 MIL/uL Hemoglobin 8.7 L 12.0-16.0 g/dL Hematocrit 27.1 L 36-48 % Mean Corpuscular Volume 84.7 79-99 fL Mean Corpuscular Hemoglobin 27.2 27.0-33.0 pg Mean Corpuscular Hemoglobin Concent 32.1 32.0-36.0 g/dL Red Cell Distribution Width 17.8 H 11.0-15.5 % Platelet Count 313 130-400 K/uL Mean Platelet Volume 11.2 H 7.5-10.5 fL Nucleated Red Blood Cells 0.0 0.0-0.19 % Sodium Level 135 L 136-145 mmol/L Potassium Level 3.4 L 3.5-5.1 mmol/L Chloride Level 100 L 101-111 mmol/L Carbon Dioxide Level 29 21-32 mmol/L Blood Urea Nitrogen 43 H 7-18 mg/dL Creatinine 0.6 0.5-1.0 mg/dL Glomerular Filtration Rate Calc 103 >90 mL/min Random Glucose 184 H 70-105 mg/dL Total Calcium 8.2 L 8.5-10.1 mg/dL Whole Blood Glucose 178 H 70-110 MG/DL Segmented Neutrophils % 94 H 40-70 % Lymphocytes % (Manual) 6 L 22-44 % Differential Comment MANUAL DIFFERENTIAL White Cell Morphology Comment HYPERSEGMENT NEUT 1+ Platelet Morphology Comment ADEQUATE Red Blood Cell Morphology See comments Bedside Glucose Comment Notified Nurse Current Medications Medications (Trade) Dose Ordered Sig/Alexandra Route PRN Reason Start Time Stop Time Status Last Admin Dose Admin Albumin Human 100 ml @ 50 mls/hr AD IV 07/28/24 08:00 07/31/24 07:59 DC Cefepime HCl (MAXipime 2 gm vial) 2 gm Q24H IVPB 07/26/24 22:00 07/27/24 14:55 DC 07/26/24 22:54 2 GM Dexmedetomidine/ Sodium Chloride (PRECEdex 400MCG/ 100ML-NS) 400 mcg PROTOCOL PRN IV agitation 07/29/24 14:00 08/03/24 13:31 DC 07/30/24 01:18 400 MCG Dextrose (D50w) 50 ml AD PRN IV HYPOGLYCEMIA PROTOCOL 07/27/24 16:00 08/26/24 15:59 Famotidine (Pepcid 20mg Vial) 20 mg Q24H IV 07/25/24 21:00 08/24/24 20:59 08/04/24 22:04 20 MG Fat Emulsion Intravenous 250 ml @ 42 mls/hr QMOFR IV 07/29/24 09:00 08/28/24 08:59 08/05/24 09:35 42 MLS/HR Fentanyl Citrate 100 ml @ 0 mls/hr PROTOCOL IV 07/26/24 13:30 07/27/24 12:04 DC Fentanyl Citrate 100 ml @ 0 mls/hr PROTOCOL IV 07/27/24 12:30 07/29/24 13:42 DC 07/29/24 02:03 5 MLS/HR Fentanyl/Sodium Chloride 250 ml @ 0.1 mls/hr PROTOCOL IV 07/27/24 12:00 07/27/24 12:05 DC Fluconazole/ Sodium Chloride 100 ml @ 100 mls/hr Q24H IV 07/26/24 13:30 08/25/24 13:29 08/05/24 12:19 100 MLS/HR Furosemide (LASix 20MG VIAL) 20 mg Q8H IV 07/28/24 15:30 08/27/24 15:29 08/05/24 06:36 20 MG Glucagon (Glucagon 1mg Kit) 1 mg AD PRN IM HYPOGLYCEMIA PROTOCOL 07/27/24 16:00 08/26/24 15:59 Hydromorphone HCl (DiLAUDid 0.5MG INJ) 0.5 mg Q4H PRN IVP SEVERE PAIN (7-10) 07/29/24 14:00 08/03/24 13:59 DC 08/02/24 11:44 0.5 MG Insulin Glargine (LANtus 100 UNITS/ML 10 ML VIAL) 5 units HS SQ 07/27/24 21:00 07/29/24 09:47 DC 07/28/24 20:48 5 UNITS Insulin Glargine (LANtus 100 UNITS/ML 10 ML VIAL) 15 units BID SQ 07/29/24 21:00 08/28/24 20:59 08/05/24 09:39 15 UNITS Insulin Glargine (LANtus 100 UNITS/ML 10 ML VIAL) 15 units HS SQ 07/29/24 21:00 07/29/24 13:43 DC Insulin Human Regular (humuLIN R 100 UNIT/ML 3ML) INSULIN SLIDING SCAL... Q6H6 SQ 07/26/24 00:00 08/25/24 00:00 08/05/24 12:17 2 UNIT Ipratropium [place] (AtrovENT UD) 0.5 mg Q6HACSF IH 07/30/24 18:00 08/29/24 17:59 08/05/24 11:26 0.5 MG Linezolid 300 ml @ 150 mls/hr Q12H IV 08/03/24 13:00 08/13/24 12:59 08/05/24 01:00 150 MLS/HR Magnesium Sulfate 50 ml @ 0 mls/hr PROTOCOL PRN IV hypomagnesemia 07/25/24 18:00 08/24/24 17:59 07/31/24 17:23 25 MLS/HR Meropenem (Merrem 1gm) 1 gm Q12H IVPB 07/27/24 15:30 08/03/24 03:31 DC 08/03/24 03:31 1 GM Meropenem (Merrem 1gm) 1 gm Q12H IVPB 08/03/24 15:30 08/10/24 03:31 08/05/24 03:32 1 GM Metoprolol Tartrate (loprESSOR) 2.5 mg Q12H9 IV 07/31/24 21:00 08/30/24 20:59 08/05/24 09:36 2.5 MG Midazolam HCl 50 ml @ 0 mls/hr PROTOCOL IV 07/26/24 13:30 07/29/24 13:42 DC Nystatin (MycoSTATin 30 GM CREAM) 1 APPL BID TP 07/31/24 21:00 08/30/24 20:59 08/05/24 09:37 1 APPL Ondansetron HCl (zoFRAN 4MG INJ) 4 mg Q6H PRN IVP NAUSEA/VOMITING 07/25/24 18:00 08/24/24 17:59 08/03/24 15:32 4 MG Pharmacy Profile Note (Lace Assessment) 1 each AD MISC 07/27/24 15:30 07/27/24 15:14 DC Pharmacy Profile Note (Lace Assessment) 1 each AD MISC 08/03/24 11:00 08/03/24 11:10 DC Pharmacy Profile Note (Pharmacy Communication) 1 each ONCE MISC 07/27/24 15:00 07/28/24 07:29 DC Pharmacy Profile Note (Pharmacy Communication) 1 each ONCE MISC 08/03/24 11:00 08/03/24 11:47 DC Pharmacy Profile Note (Pharmacy Communication) 1 each ONCE MISC 08/03/24 11:00 08/03/24 11:53 DC Phenol (Sore Throat [place]) 1 spry Q4H PRN PO SORE THROAT 08/01/24 05:00 08/31/24 04:59 08/03/24 10:19 1 SPRY Phenylephrine HCl 100 mg/Sodium Chloride 250 ml @ 0 mls/hr AD PRN IV TITRATE 07/26/24 13:30 08/03/24 13:31 DC 07/30/24 04:41 9.52 MLS/HR Piperacillin Sod/ Tazobactam Sod (Zosyn 3.375gm+NS 50ml) 3.375 gm Q12H IV 07/25/24 20:00 07/25/24 17:27 DC Piperacillin Sod/ Tazobactam Sod (Zosyn 3.375gm+NS 50ml) 3.375 gm Q8H IVPB 07/25/24 19:00 07/26/24 21:40 DC 07/26/24 19:40 3.375 GM Piperacillin Sod/ Tazobactam Sod (Zosyn 3.375gm+NS 50ml) 3.375 gm Q8H IVPB 07/25/24 20:00 07/25/24 18:49 DC Potassium Chloride 100 ml @ 50 mls/hr AD PRN IV POTASSIUM PROTOCOL 07/25/24 18:00 08/24/24 17:59 08/05/24 06:35 50 MLS/HR Propofol 100 ml @ 0 mls/hr AD PRN IV TITRATE 07/26/24 13:30 07/29/24 13:42 DC 07/29/24 02:49 12.2 MLS/HR Sodium Chloride 1,000 ml @ 50 mls/hr Q20H IV 08/04/24 11:30 09/03/24 11:29 08/05/24 05:33 50 MLS/HR Sodium Chloride 1,000 ml @ 125 mls/hr Q8H IV 07/25/24 17:30 07/27/24 16:01 DC 07/27/24 07:58 125 MLS/HR Sodium Chloride (NS 50ml) 50 ml AD IV 07/25/24 17:00 07/25/24 17:29 DC Vancomycin HCl 250 ml @ 125 mls/hr Q12H IV 07/31/24 04:00 08/02/24 04:37 DC 08/01/24 03:10 125 MLS/HR Vancomycin HCl 250 ml @ 125 mls/hr Q12H IV 08/02/24 05:00 08/03/24 11:09 DC 08/02/24 17:22 125 MLS/HR Vancomycin HCl 250 ml @ 125 mls/hr Q24H IV 07/26/24 17:00 07/27/24 15:09 DC 07/26/24 19:55 125 MLS/HR Vancomycin HCl (Vancomycin Protocol) 1 each AD IV 07/25/24 17:00 07/27/24 14:55 DC Vancomycin HCl (Vancomycin Protocol) 1 each AD IV 07/30/24 15:00 08/03/24 11:09 DC Wound Care/ Dressing Products (Venelex Ointment) BID TP 07/31/24 21:00 08/30/24 20:59 08/05/24 09:36 1 GM Diagnostics / Radiology: [COPY/PASTE HERE IF NO REPORTS PLEASE DELETE SECTION] Assessment: Abnormal imaging with viscous perforation Plan: Follow surgery recommendations ROSANA JIMENEZ BRUSHING MACHINE OPERATOR Aug 05, 2024 14:28
[2024-08-05 14:31] LABS: ALBUMIN 1.1 g/dL (3.5-5.0); BILIRUBIN,TOTAL 0.6 mg/dL (0.2-1.0); MAGNESIUM 1.7 mg/dL (1.80-2.40)
[2024-08-05] MEDS: PoTASSium chloRIDE 20MEQ ER 20 MEQ ERTAB PO ONE (14:35)
--- NOTE | 2024-08-05 15:30 | NUR ---
TPN TORB BY DR. KING FOR TPN TO BE D/C AND PATIENT BE STARTED ON CLEARS. MONITOR FOR NAUSEA AND VOMITTING AND NOTIFY IF ABLE TO TOLERATE. ORDERS PLACED AND CARRIED OUT. PRIMARY, DR. FINNEY NOTIFIED OF CHANGES. NO FURTHER ORDERS OBTAINED. WILL CONTINUE TO MONITOR. FAMILY AWARE OF CHANGES AND VOICED UNDERSTANDING.
--- NOTE | 2024-08-05 22:15 | PN ---
INFECTIOUS DISEASE PROGRESS NOTE Date of Service: Aug 05, 2024 SUBJECTIVE: Patient was seen and examined at bedside in room 326. Patient is currently NPO and reported that the nausea has resolved. A KUB done yesterday showed mild small bowel dilatation possible ileus versus early bowel obstruction. Abdomen is soft and patient reported having two bowel movements this morning. The WBC trended down to 23.2 today. Patient continues on Meropenem, linezolid and fluconazole. Patient is afebrile, temperature is 97.9. Hemoglobin remains low at 7.7 but asymptomatic. We will continue to follow patient's care. PHYSICAL EXAM EYES: Anicteric. Pupils equal and reactive. HENT: No oral thrush seen, moist Oral mucosa NECK: Supple, no JVD or thyromegaly. LUNGS: Good air entry. No rales, no rhonchi. CARDIOVASCULAR: S1, S2 regular. No murmur heard. ABDOMEN: Soft, non tender, bowel sounds present, no organomegaly. Abdominal surgical incision with BYRON drain. CENTRAL NERVOUS SYSTEM: Awake, alert and oriented x3. SKIN: No rashes, no swelling. LYMPHATICS: No peripheral lymphadenopathy. MUSCULOSKELETAL: No joint swelling, erythema or tenderness. EXTREMITIES: No cyanosis or clubbing. BACK: No deformity, no pressure ulcer. GENITOURINARY: No dysuria or hematuria. Troy catheter. Vital Sign (Last 12 Hours) 08/05/24 08/05/24 08/05/24 08/05/24 08:00 08:00 09:36 11:26 Temp 97.9 Pulse 103 103 105 Resp 18 18 B/P (MAP) 123/75 123/75 Pulse Ox 97 95 O2 Delivery Room Air Room Air* O2 Flow Rate 0 FiO2 21 08/05/24 08/05/24 08/05/24 08/05/24 12:00 16:00 18:29 18:30 Temp 97.7 97.7 Pulse 101 108 99 100 Resp 19 16 18 18 B/P (MAP) 125/78 111/74 Pulse Ox 95 95 O2 Delivery Room Air Room Air N/A Room Air FiO2 21 Intake & Output (last 24hrs) 08/04/24 08/04/24 08/05/24 15:00 23:00 07:00 Intake Total 2284.5 ml 1950.0 ml Output Total 400 ml 540 ml 1030 ml Balance -400 ml 1744.5 ml 920.0 ml LABS: Laboratory: Test 08/05/24 18:14 08/05/24 14:09 08/04/24 06:41 08/04/24 05:56 Range/Units Whole Blood Glucose 126 H 70-110 MG/DL White Blood Count 25.7 H 4.8-10.8 K/uL Red Blood Count 3.20 L 4.00-5.50 MIL/uL Hemoglobin 8.7 L 12.0-16.0 g/dL Hematocrit 27.1 L 36-48 % Mean Corpuscular Volume 84.7 79-99 fL Mean Corpuscular Hemoglobin 27.2 27.0-33.0 pg Mean Corpuscular Hemoglobin Concent 32.1 32.0-36.0 g/dL Red Cell Distribution Width 17.8 H 11.0-15.5 % Platelet Count 313 130-400 K/uL Mean Platelet Volume 11.2 H 7.5-10.5 fL Nucleated Red Blood Cells 0.0 0.0-0.19 % Sodium Level 135 L 136-145 mmol/L Potassium Level 3.4 L 3.5-5.1 mmol/L Chloride Level 100 L 101-111 mmol/L Carbon Dioxide Level 29 21-32 mmol/L Blood Urea Nitrogen 43 H 7-18 mg/dL Creatinine 0.6 0.5-1.0 mg/dL Glomerular Filtration Rate Calc 103 >90 mL/min Random Glucose 184 H 70-105 mg/dL Total Calcium 8.2 L 8.5-10.1 mg/dL Magnesium Level 1.70 L 1.80-2.40 mg/dL Total Bilirubin 0.6 0.2-1.0 mg/dL Aspartate Amino Transf (AST/SGOT) 29 10-37 U/L Alanine Aminotransferase (ALT/SGPT) 52 12-78 U/L Alkaline Phosphatase 243 H 50-136 U/L Total Protein 5.0 L 6.0-8.3 g/dL Albumin 1.1 L 3.5-5.0 g/dL Segmented Neutrophils % 94 H 40-70 % Lymphocytes % (Manual) 6 L 22-44 % Differential Comment MANUAL DIFFERENTIAL White Cell Morphology Comment HYPERSEGMENT NEUT 1+ Platelet Morphology Comment ADEQUATE Red Blood Cell Morphology See comments Bedside Glucose Comment Notified Nurse ASSESSMENT: Intestinal perforation, s/p closure of exploratory laparotomy on 07/28/2024. Intra-abdominal abscess with polymicrobial infection, status post open drainage 07/26/2024. Peritonitis. Leukocytosis. Anemia requiring blood transfusion. Respiratory failure requiring intubation, s/p extubated. History of colitis. Debility. PLAN: Continue linezolid IV. Continue Meropenem. Continue fluconazole. Continue GI prophylaxis. Continue physical therapy. We will monitor electrolytes. Continue antiemetics. This case was reviewed and discussed with my supervising physician and the above assessment and plan was formulated and agreed upon. ATTESTATION BY PHYSICIAN I have seen and examined the patient. I reviewed the documentation, medical decision making, and treatment plan as noted by the mid-level provider above. I agree with the findings and plan of care. MILLIE CHATTERJEE MD, MIRTA L [facility] Aug 05, 2024 22:15
[2024-08-06] VITALS (12 sets, daily range): BP systolic 111–140; BP diastolic 76–90; PULSE 74–105; RESP 16–19; TEMP 97.5–97.8; O2SAT 96–97
[2024-08-06] MEDS: DEXTROSE 50%-WATER 50 ML DISP.SYRIN IV PRN (00:05)
--- NOTE | 2024-08-06 09:30 | NUR ---
NOTE HELP PT LANTUS DUE TO BLOOD SUGAR DROPPING INTO 50s THROUGH OUT NIGHT. BLOOD SUGAR CURRENTLY 111 WILL CONTINUE TO MONITOR. PT COMPLAINS OF NO PAIN AND NO SIGNS OF DISTRESS.
--- NOTE | 2024-08-06 10:31 | PN ---
[facility] PROGRESS NOTE Date of Service: Aug 06, 2024 Time of Service: 10:28 SUBJECTIVE: 59-year-old female the past medical history of hypertension who presented to the hospital secondary to abdominal pain. Patient stated for the past 3-4 days she has been having increasing abdominal pain with abdominal distention. She was feeling nauseated and had episodes of emesis at home. She denied any hematemesis, melena, hematochezia. Patient was previously hospitalized in [facility] around one month ago secondary to colitis. GI was consulted during admission and patient underwent colonoscopy with findings showing severe inflammation of the entire colon concerning for pancolitis. She was treated with IV steroids and and was to start patient on Remicade as outpatient. She denied any fever, chills, diarrhea. She was going to follow up with GI as outpatient on 07/26/24 but had worsening pain which caused her to come to the hospital for further evaluation. Labs in the ED were notable for white count of 10.3, hemoglobin was 12.8, platelet count was 363 K, sodium was 138, potassium was 2.8, creatinine is 1.0, blood glucose was 269, lactic acid on presentation was 8.[address] abdomen pelvis which showed free intraperitoneal air concerning for bowel perforation. There is a anterior ventral wall hernia with bowel content and air collection and fat stranding concerning for bowel perforation. Her colon was also noted to be inflamed. CT was performed without contrast. 07/26 BP 135/83, tachycardic 102, saturating 100% 2 L nasal cannula. CBC shows hemoglobin 11.0, hematocrit 35.9, WBC 18.8, platelet count of 203. Sodium 141, potassium 3.7, BUN of 29, creatinine slightly worse today at 1.2. ABG with pH 7.51, pCO2 of 28, PO2 62.6, bicarb of 22.5. Serology to include influenza, SARS and group A negative. Results of chest x-ray pending. Patient is scheduled to be taken to the OR today. 07/27 the patient remains admitted to the intensive care unit, intubated, on mechanical ventilation, status post exploratory laparotomy, postoperative day one, case discussed with the RN, patient on propofol, Jose Armando-Synephrine, wound VAC to the abdomen in place, noted to have right IJ line in place. Getting broad- spectrum IV antibiotics. Blood pressure 130/79, heart rate of 83, saturating 100% on mechanical ventilation, FiO2 40%. Leukocytosis is worse today at 28.1, drop in hemoglobin to 9.7, hematocrit 30.8, with a platelet count of 148. Potassium level 3.6, magnesium 1.6. Lactic acid from 8.2 down to 1.8 ABG with pH 7.4, pCO2 34, PO2 145, bicarb of 20. Chest x-ray shows bilateral lower lung infiltrates. Family at Bedside, updated 07/28 the patient has been seen and examined in the intensive care unit, she remains intubated, mechanical ventilation, on fentanyl, propofol and Jose Armando- Synephrine, getting broad-spectrum antibiotics, BP 112/84, afebrile, saturating 100% on mechanical ventilation, FiO2 40%. CBC with a hemoglobin 8.4, hematocrit 27.8, WBC of 16.3, platelet count of 89. Patient is status post exploratory laparotomy with drainage of intra-abdominal abscess/ventral hernia repair/small- bowel resection/NS of adhesions/left open and wound VAC on 07/23 05/28 by General surgery. Results of septic workup reviewed, Gram-negative rods. Patient with a possible ischemic colitis, plan to take the patient back to the operating room for further exploration. 07/29 Pt seen at bedside, no acute events overnight. She is s/p ex-lap with cholecystectomy. Currently on pressors, will wean as able. Remains intubated, PEEP 5, FiO2 30%, will continue with daily sedation vacations. She is mildly tachycardic. She is NPO, continue TPN per general surgery. WBC increased from 16.3 up to 16.8, Hgb improved from 8.4 up to 8.6, platelets decreased from 89 do wn to 76 07/30 Pt seen at bedside, no acute events overnight. She is s/p ex-lap with small bowel resection, appendectomy and drainage of intraabdominal abscess with wound vac post op day 4, repeat ex-lap with cholecystectomy, repair of left flank and ventral hernias post op day 2. Currently on pressors, will wean as able. Remains intubated, PEEP 5, FiO2 30%, she was on sedation vacation, in no acute distress, possible extubation today, will defer to critical care. She is NPO, continue TPN per general surgery. WBC improved from 16.8 down to 10.6, Hgb stable at 8.3, similar to yesterday, platelets improved from 76 up to 90, remai nder of her labs are relatively unremarkable. 07/31 patient seen at bedside, no acute events overnight. She is status post ex lap with small-bowel resection, appendectomy and drainage of intra-abdominal abscess with wound VAC postop day five, repeat ex lap with cholecystectomy, repair of left flank and ventral hernias postop day three. She has been successfully extubated, we will continue to try and wean pressors. Hemoglobin stable at 7.2, similar to yesterday, platelets decreased from 119-98, potassium mildly low at 3.2, we will be repleted according to protocol, remainder of her labs are relatively unremarkable. 08/02 patient seen at bedside, no acute events overnight. She is status post ex lap with small-bowel resection, appendectomy and drainage of intra-abdominal abscess with wound VAC postop day 6 repeat ex lap with cholecystectomy, repair of left flank and ventral hernias postop day 4. She has been successfully extubated, and weaned off pressors. She was transfused yesterday, Hgb improved from 6.9 up to 9.7, platelets improved to 166, potassium mildly low at 3.2, we will be repleted according to protocol, remainder of her labs are relatively unremarkable. She continues on TPN, diet to be addressed by general surgery. Only complaint is continued xuan-incisional pain 08/03 patient seen at bedside, no acute events overnight. At bedside she is in no acute distress, she has no complaints. She is status post ex lap with small- bowel resection, appendectomy and drainage of intra-abdominal abscess with wound VAC postop day 7 repeat ex lap with cholecystectomy, repair of left flank and ventral hernias postop day 5. WBC increased from 8.0 up to 27.1, this seemed to be and anomaly so a repeat CBC was ordered and WBC increased again to 34.4. Patient has been bolused 1 L of LR, repeat lactic acid was ordered and was mildly elevated at 2.5, wounds were examined at bedside and found to be clean dry and intact with no drainage or erythema. The BYRON drains are still draining serosanguineous fluid there does not appear to be sick succus suggesting bowel perforation. Discussed case with General surgery and Infectious Disease, we agreed to order a CT scan of the abdomen/pelvis to determine if there is a new abscess forming. Patient has not had watery bowel movements to suggest C diff and she is already on fluconazole. Hemoglobin increased from 8.7 up to 11.2, remainder of her labs are relatively unremarkable. Antibiotics were adjusted to Zyvox and meropenem. Further recommendations per Infectious Disease and General surgery. 08/04 patient seen at bedside, no acute events overnight. She has no complaints at bedside, reports her pain has improved today. She was made NPO yesterday after she vomited, we will resume clear liquid diet per General surgery recommendations. She is hemodynamically stable saturating well on room air, her WBC improved from 34.4 down to 30.8, hemoglobin decreased from 11.2 down to 8.6, potassium decreased from 4.1 down to 3.2, remainder of her labs are relatively unremarkable. Pt has been referred for LTAC, follow up with case management 08/05 patient is seen and examined, comfortable in bed, following commands, nutri tional support via TPN, BP 123/75, heart rate of 103, afebrile, saturating 97% room air. CBC shows a hemoglobin of 7.7, hematocrit 24.6, WBC 23.2, platelet count of 266. Sodium 137, potassium 3.4, BUN of 49, creatinine 0.7. The patient remains NPO. We will recheck CBC, transfuse 1 unit of PRBC if hemoglobin less than seven, replace electrolytes IV per protocol, continue to follow surgical input and recommendation, pending LTAC. Patient to continue broad-spectrum IV antibiotics with the meropenem, linezolid. Family at bedside, updated 08/06 the patient has been seen and examined during rounding, during my visit physical therapy evaluated the patient, noted to have swollen to the left upper extremity at the site of the PICC line. The patient remains hemodynamically stable, BP 120/78, afebrile, saturating normal on room air. Case discussed with the RN, TPN discontinued yesterday, patient is started on clear liquid diet. WBC still elevated 25.7, hemoglobin 8.7, hematocrit 27.1, platelet count of 313. We will follow repeat CMP today as potassium insulin drip 0.4 with magnesium 1.7. We will discuss discharge plan with case management, patient may benefit from discharge to LTAC as the patient with persistent leukocytosis and getting broad-spectrum IV antibiotics with meropenem and linezolid IV. We will request speech therapy to evaluate the patient. Per discussion with the RN the patient had low blood glucose in the 50s today, we will hold Lantus, continue only sliding scale, patient with a Troy catheter, we will do bladder training, Doppler of the left upper extremity ordered. at bedside, updated REVIEW OF SYSTEMS 12 point ROS negative unless noted in HPI PHYSICAL EXAM GENERAL APPEARANCE: Patient intubated, on mechanical ventilation. NEUROLOGICAL: Cranial nerves II-XII grossly intact. Motor is 5/5 in bilateral upper and lower extremities proximal to distal. No sensory deficits. HEENT: Face is symmetric. Pupils are equal and reactive. Extraocular movements are intact. NECK: Supple. No JVD. No thyromegaly. No submental, submandibular, pre- /postauricular, occipital or supraclavicular lymphadenopathy. CHEST: Normal chest expansion. No Telemetry. LUNGS: Absence of any rales, rhonchi or any wheezing. CARDIOVASCULAR: Regular. S1 and S2 normal. No appreciable rubs, murmurs or gallops. ABDOMEN: Abdominal wound VAC in place : Deferred. No Troy. EXTREMITIES: Non-edematous and not cyanotic. No clubbing. Good capillary refill. SKIN: No skin breakdown. Vital Signs (last 8hr) Date Time Temp Pulse Resp B/P (MAP) Pulse Ox O2 Delivery O2 Flow Rate FiO2 08/06/24 09:09 100 128/78 08/06/24 08:00 97.5 100 16 128/78 97 Room Air 08/06/24 07:07 96 18 N/A Room Air 21 08/06/24 07:04 97 19 08/06/24 04:41 97.5 95 17 117/76 96 LABS: Laboratory: Test 08/06/24 07:16 08/05/24 14:09 Range/Units Whole Blood Glucose 111 #H 70-110 MG/DL White Blood Count 25.7 H 4.8-10.8 K/uL Red Blood Count 3.20 L 4.00-5.50 MIL/uL Hemoglobin 8.7 L 12.0-16.0 g/dL Hematocrit 27.1 L 36-48 % Mean Corpuscular Volume 84.7 79-99 fL Mean Corpuscular Hemoglobin 27.2 27.0-33.0 pg Mean Corpuscular Hemoglobin Concent 32.1 32.0-36.0 g/dL Red Cell Distribution Width 17.8 H 11.0-15.5 % Platelet Count 313 130-400 K/uL Mean Platelet Volume 11.2 H 7.5-10.5 fL Nucleated Red Blood Cells 0.0 0.0-0.19 % Sodium Level 135 L 136-145 mmol/L Potassium Level 3.4 L 3.5-5.1 mmol/L Chloride Level 100 L 101-111 mmol/L Carbon Dioxide Level 29 21-32 mmol/L Blood Urea Nitrogen 43 H 7-18 mg/dL Creatinine 0.6 0.5-1.0 mg/dL Glomerular Filtration Rate Calc 103 >90 mL/min Random Glucose 184 H 70-105 mg/dL Total Calcium 8.2 L 8.5-10.1 mg/dL Magnesium Level 1.70 L 1.80-2.40 mg/dL Total Bilirubin 0.6 0.2-1.0 mg/dL Aspartate Amino Transf (AST/SGOT) 29 10-37 U/L Alanine Aminotransferase (ALT/SGPT) 52 12-78 U/L Alkaline Phosphatase 243 H 50-136 U/L Total Protein 5.0 L 6.0-8.3 g/dL Albumin 1.1 L 3.5-5.0 g/dL Current Medications Medications (Trade) Dose Ordered Sig/Alexandra Route PRN Reason Start Time Stop Time Status Last Admin Dose Admin Albumin Human 100 ml @ 50 mls/hr AD IV 07/28/24 08:00 07/31/24 07:59 DC Cefepime HCl (MAXipime 2 gm vial) 2 gm Q24H IVPB 07/26/24 22:00 07/27/24 14:55 DC 07/26/24 22:54 2 GM Dexmedetomidine/ Sodium Chloride (PRECEdex 400MCG/ 100ML-NS) 400 mcg PROTOCOL PRN IV agitation 07/29/24 14:00 08/03/24 13:31 DC 07/30/24 01:18 400 MCG Dextrose (D50w) 50 ml AD PRN IV HYPOGLYCEMIA PROTOCOL 07/27/24 16:00 08/26/24 15:59 08/06/24 06:15 50 ML Famotidine (Pepcid 20mg Vial) 20 mg Q24H IV 07/25/24 21:00 08/24/24 20:59 08/05/24 21:40 20 MG Fat Emulsion Intravenous 250 ml @ 42 mls/hr QMOFR IV 07/29/24 09:00 08/05/24 16:31 DC 08/05/24 09:35 42 MLS/HR Fentanyl Citrate 100 ml @ 0 mls/hr PROTOCOL IV 07/26/24 13:30 07/27/24 12:04 DC Fentanyl Citrate 100 ml @ 0 mls/hr PROTOCOL IV 07/27/24 12:30 07/29/24 13:42 DC 07/29/24 02:03 5 MLS/HR Fentanyl/Sodium Chloride 250 ml @ 0.1 mls/hr PROTOCOL IV 07/27/24 12:00 07/27/24 12:05 DC Fluconazole/ Sodium Chloride 100 ml @ 100 mls/hr Q24H IV 07/26/24 13:30 08/25/24 13:29 08/05/24 12:19 100 MLS/HR Furosemide (LASix 20MG VIAL) 20 mg Q8H IV 07/28/24 15:30 08/27/24 15:29 08/06/24 06:15 20 MG Glucagon (Glucagon 1mg Kit) 1 mg AD PRN IM HYPOGLYCEMIA PROTOCOL 07/27/24 16:00 08/26/24 15:59 Hydromorphone HCl (DiLAUDid 0.5MG INJ) 0.5 mg Q4H PRN IVP SEVERE PAIN (7-10) 07/29/24 14:00 08/03/24 13:59 DC 08/02/24 11:44 0.5 MG Insulin Glargine (LANtus 100 UNITS/ML 10 ML VIAL) 5 units HS SQ 07/27/24 21:00 07/29/24 09:47 DC 07/28/24 20:48 5 UNITS Insulin Glargine (LANtus 100 UNITS/ML 10 ML VIAL) 15 units BID SQ 07/29/24 21:00 08/28/24 20:59 08/05/24 21:42 15 UNITS Insulin Glargine (LANtus 100 UNITS/ML 10 ML VIAL) 15 units HS SQ 07/29/24 21:00 07/29/24 13:43 DC Insulin Human Regular (humuLIN R 100 UNIT/ML 3ML) INSULIN SLIDING SCAL... Q6H6 SQ 07/26/24 00:00 08/25/24 00:00 08/05/24 12:17 2 UNIT Ipratropium [place] (AtrovENT UD) 0.5 mg [id number] IH 07/30/24 18:00 08/29/24 17:59 08/06/24 07:04 0.5 MG Linezolid 300 ml @ 150 mls/hr Q12H IV 08/03/24 13:00 08/13/24 12:59 08/06/24 00:05 150 MLS/HR Magnesium Sulfate 50 ml @ 0 mls/hr PROTOCOL PRN IV hypomagnesemia 07/25/24 18:00 08/24/24 17:59 08/06/24 10:01 0 MLS/HR Meropenem (Merrem 1gm) 1 gm Q12H IVPB 07/27/24 15:30 08/03/24 03:31 DC 08/03/24 03:31 1 GM Meropenem (Merrem 1gm) 1 gm Q12H IVPB 08/03/24 15:30 08/10/24 03:31 08/06/24 03:15 1 GM Metoprolol Tartrate (loprESSOR) 2.5 mg Q12H9 IV 07/31/24 21:00 08/30/24 20:59 08/06/24 09:09 2.5 MG Midazolam HCl 50 ml @ 0 mls/hr PROTOCOL IV 07/26/24 13:30 07/29/24 13:42 DC Nystatin (MycoSTATin 30 GM CREAM) 1 APPL BID TP 07/31/24 21:00 08/30/24 20:59 08/06/24 09:09 1 APPL Ondansetron HCl (zoFRAN 4MG INJ) 4 mg Q6H PRN IVP NAUSEA/VOMITING 07/25/24 18:00 08/24/24 17:59 08/03/24 15:32 4 MG Pharmacy Profile Note (Lace Assessment) 1 each AD MISC 07/27/24 15:30 07/27/24 15:14 DC Pharmacy Profile Note (Lace Assessment) 1 each AD MISC 08/03/24 11:00 08/03/24 11:10 DC Pharmacy Profile Note (Pharmacy Communication) 1 each ONCE MISC 07/27/24 15:00 07/28/24 07:29 DC Pharmacy Profile Note (Pharmacy Communication) 1 each ONCE MISC 08/03/24 11:00 08/03/24 11:47 DC Pharmacy Profile Note (Pharmacy Communication) 1 each ONCE MISC 08/03/24 11:00 08/03/24 11:53 DC Phenol (Sore Throat [place]) 1 spry Q4H PRN PO SORE THROAT 08/01/24 05:00 08/31/24 04:59 08/03/24 10:19 1 SPRY Phenylephrine HCl 100 mg/Sodium Chloride 250 ml @ 0 mls/hr AD PRN IV TITRATE 07/26/24 13:30 08/03/24 13:31 DC 07/30/24 04:41 9.52 MLS/HR Piperacillin Sod/ Tazobactam Sod (Zosyn 3.375gm+NS 50ml) 3.375 gm Q12H IV 07/25/24 20:00 07/25/24 17:27 DC Piperacillin Sod/ Tazobactam Sod (Zosyn 3.375gm+NS 50ml) 3.375 gm Q8H IVPB 07/25/24 19:00 07/26/24 21:40 DC 07/26/24 19:40 3.375 GM Piperacillin Sod/ Tazobactam Sod (Zosyn 3.375gm+NS 50ml) 3.375 gm Q8H IVPB 07/25/24 20:00 07/25/24 18:49 DC Potassium Chloride 100 ml @ 50 mls/hr AD PRN IV POTASSIUM PROTOCOL 07/25/24 18:00 08/24/24 17:59 08/05/24 16:38 50 MLS/HR Propofol 100 ml @ 0 mls/hr AD PRN IV TITRATE 07/26/24 13:30 07/29/24 13:42 DC 07/29/24 02:49 12.2 MLS/HR Sodium Chloride 1,000 ml @ 50 mls/hr Q20H IV 08/04/24 11:30 09/03/24 11:29 08/06/24 09:10 50 MLS/HR Sodium Chloride 1,000 ml @ 125 mls/hr Q8H IV 07/25/24 17:30 07/27/24 16:01 DC 07/27/24 07:58 125 MLS/HR Sodium Chloride (NS 50ml) 50 ml AD IV 07/25/24 17:00 07/25/24 17:29 DC Vancomycin HCl 250 ml @ 125 mls/hr Q12H IV 07/31/24 04:00 08/02/24 04:37 DC 08/01/24 03:10 125 MLS/HR Vancomycin HCl 250 ml @ 125 mls/hr Q12H IV 08/02/24 05:00 08/03/24 11:09 DC 08/02/24 17:22 125 MLS/HR Vancomycin HCl 250 ml @ 125 mls/hr Q24H IV 07/26/24 17:00 07/27/24 15:09 DC 07/26/24 19:55 125 MLS/HR Vancomycin HCl (Vancomycin Protocol) 1 each AD IV 07/25/24 17:00 07/27/24 14:55 DC Vancomycin HCl (Vancomycin Protocol) 1 each AD IV 07/30/24 15:00 08/03/24 11:09 DC Wound Care/ Dressing Products (Venelex Ointment) BID TP 07/31/24 21:00 08/30/24 20:59 08/06/24 09:09 1 GM DIAGNOSTICS / RADIOLOGY: [ ] ASSESSMENT: Septic shock requiring pressors Bacterial peritonitis POA Bowel perforation w/ [id number] S/P exploratory laparotomy with drainage of intra-abdominal abscess/ventral hernia repair/small-bowel resection/NS of adhesions/left open and a wound VAC on 07/26/24 per High risk for ischemic bowel-POA Intractable abdominal pain-POA Acute hypokalemia-POA this is Dehydration-POA SHARMILA not POA Lactic acidosis-POA Hyperglycemia 2/2 uncontrolled diabetes mellitus Primary HTN HX of colitis HX of inflammatory bowel disease (Crohn's Disease) HX of cardiac arrest HX of BLE cellulitis Recent hospitalization for UTI with outpatient Zosyn antibiotic \ PLAN: Patient remains admitted to the medical floor TPN discontinued Patient is started on clear liquid diet, advanced as tolerated Continue to follow surgical input and recommendation Continue to monitor WBC in a.m. Continue The patient on broad-spectrum IV antibiotic Continue to follow infectious disease input and recommendation Doppler of the left upper extremity Speech therapy consultation requested Bladder training Hold Lantus continue sliding scale monitor for hypoglycemia We will discuss discharge plan with case management, patient may benefit from discharge plan to LTAC NEURO: Minimize central acting medications as possible. Fall Precautions. Well lighted room through the day and minimize interruptions through the night to prevent acute delirium. PULMONARY: Supplemental 02 as needed BiPAP as necessary, for respiratory distress Titrate Fio2 to keep Spo2 > or = 90% DuoNebs and CPT as needed IS hourly while awake for pulmonary hygiene prn Out of bed to chair as tolerated Maintain aspiration precautions at all times CARDIOVASCULAR: Follow hemodynamics. Vital signs per facility protocol GI & NUTRITION: Continue nutritional support Aspirations precautions Prokinetic agents and laxatives as needed KIDNEYS & ELECTROLYTES: Strict monitoring of intake and output Daily weights Avoid nephrotoxic agents Monitor electrolytes and replace as needed Goal urine output of 30mL/hr or 0.5mL/kg/hr Medications to be dosed according to renal function. Avoid contrast if possible ENDOCRINE: Maintain blood glucose between 100-180 at all times. Insulin sliding scale for blood glucose management Hypoglycemia and hyperglycemia protocol in place INFECTIOUS DISEASE: Trend temperature, WBC and procalcitonin level Follow cultures, deescalate antibiotics as soon as possible. Panculture if new onset fever HEMATOLOGY & COAGULATION: Monitor H&H. Keep Hgb > 7 Transfuse 1 unit of PRBC for Hgb < 7 Transfuse 1 pack of platelets of platelets < 20, 000 Watch for any signs and symptoms of bleeding SKIN: Pressure ulcer prevention per facility protocol Specialty mattress as needed ORTHO/REHAB Continue PT/OT PRN: MEDICATIONS Tylenol 650 mg po every 4 hrs for fever zofran 4 mg IV every 6 hrs for n/v Hydralazine 5 mg IV every 4 hrs systolic pressure > 160 bowel regiment: lactulose 20 gm PO BID PRN constipation Supportive measures: Continue GI and DVT prophylaxis Disposition: Pending improvement in clinical condition All questions answered time spent: > 35 min MICKEY FINNEY MD Aug 06, 2024 10:31
--- NOTE | 2024-08-06 10:31 | PN ---
GASTROENTEROLOGY PROGRESS NOTE Date of Visit: Aug 06, 2024 Time of Visit: 10:31 Events / Notes: [ ] Review of Systems: CONSTITUTIONAL: No malaise or change in sensation of wellbeing. ENMT: No rhinorrhea, otorrhea, sinus pain, ear ache. CARDIOVASCULAR: No angina, palpitations, orthopnea or paroxysmal dyspnea. RESPIRATORY: No SOB. GASTROINTESTINAL: No abdominal pain, nausea, vomiting, diarrhea, hematemesis, melena or change in the patient's habitual bowel movements consistency/number. GENITOURINARY: No dysuria, hematuria or change in bladder continence. MUSCULOSKELETAL: No new muscle pain or decrease in muscular strength. No new joint swelling, redness or tenderness. SKIN: No new rash. Physical Exam: GEN: Awake, alert, oriented in person, time and place, and in no acute distress. HEENT: No sinus tenderness. Tympanic membranes were not examined. No rhinorrhea. Oral pharyngeal mucosa is pink, moist and within normal limits. Neck is supple with no cervical lymphadenopathy, thyromegaly or JVD. CHEST: Inspection, palpation and percussion of the chest were unremarkable. Lung auscultation revealed normal breath sounds bilaterally. CARDIAC: PMI is within normal limits. Heart sounds are regular. Normal S1, S2. No gallop or murmur. ABD: Soft, non-tender and not distended. No peritoneal signs on palpation. No organomegaly. Normal bowel sounds. EXT: No cyanosis or clubbing. No edema. SKIN: Intact. No rashes. JOINTS: No evidence of synovitis or acute arthritis. NEURO: Alert and oriented to name, place and person. Cranial nerve examination is unremarkable. No focal motor deficits. Normal speech. Gait is normal. Strength is normal. Vital Signs (last 8hr) Date Time Temp Pulse Resp B/P (MAP) Pulse Ox O2 Delivery O2 Flow Rate FiO2 08/06/24 09:09 100 128/78 08/06/24 08:00 97.5 100 16 128/78 97 Room Air 08/06/24 07:07 96 18 N/A Room Air 21 08/06/24 07:04 97 19 08/06/24 04:41 97.5 95 17 117/76 96 Laboratory: [ ] Laboratory: Test 08/06/24 07:16 08/05/24 14:09 Range/Units Whole Blood Glucose 111 #H 70-110 MG/DL White Blood Count 25.7 H 4.8-10.8 K/uL Red Blood Count 3.20 L 4.00-5.50 MIL/uL Hemoglobin 8.7 L 12.0-16.0 g/dL Hematocrit 27.1 L 36-48 % Mean Corpuscular Volume 84.7 79-99 fL Mean Corpuscular Hemoglobin 27.2 27.0-33.0 pg Mean Corpuscular Hemoglobin Concent 32.1 32.0-36.0 g/dL Red Cell Distribution Width 17.8 H 11.0-15.5 % Platelet Count 313 130-400 K/uL Mean Platelet Volume 11.2 H 7.5-10.5 fL Nucleated Red Blood Cells 0.0 0.0-0.19 % Sodium Level 135 L 136-145 mmol/L Potassium Level 3.4 L 3.5-5.1 mmol/L Chloride Level 100 L 101-111 mmol/L Carbon Dioxide Level 29 21-32 mmol/L Blood Urea Nitrogen 43 H 7-18 mg/dL Creatinine 0.6 0.5-1.0 mg/dL Glomerular Filtration Rate Calc 103 >90 mL/min Random Glucose 184 H 70-105 mg/dL Total Calcium 8.2 L 8.5-10.1 mg/dL Magnesium Level 1.70 L 1.80-2.40 mg/dL Total Bilirubin 0.6 0.2-1.0 mg/dL Aspartate Amino Transf (AST/SGOT) 29 10-37 U/L Alanine Aminotransferase (ALT/SGPT) 52 12-78 U/L Alkaline Phosphatase 243 H 50-136 U/L Total Protein 5.0 L 6.0-8.3 g/dL Albumin 1.1 L 3.5-5.0 g/dL Current Medications Medications (Trade) Dose Ordered Sig/Alexandra Route PRN Reason Start Time Stop Time Status Last Admin Dose Admin Albumin Human 100 ml @ 50 mls/hr AD IV 07/28/24 08:00 07/31/24 07:59 DC Cefepime HCl (MAXipime 2 gm vial) 2 gm Q24H IVPB 07/26/24 22:00 07/27/24 14:55 DC 07/26/24 22:54 2 GM Dexmedetomidine/ Sodium Chloride (PRECEdex 400MCG/ 100ML-NS) 400 mcg PROTOCOL PRN IV agitation 07/29/24 14:00 08/03/24 13:31 DC 07/30/24 01:18 400 MCG Dextrose (D50w) 50 ml AD PRN IV HYPOGLYCEMIA PROTOCOL 07/27/24 16:00 08/26/24 15:59 08/06/24 06:15 50 ML Famotidine (Pepcid 20mg Vial) 20 mg Q24H IV 07/25/24 21:00 08/24/24 20:59 08/05/24 21:40 20 MG Fat Emulsion Intravenous 250 ml @ 42 mls/hr QMOFR IV 07/29/24 09:00 08/05/24 16:31 DC 08/05/24 09:35 42 MLS/HR Fentanyl Citrate 100 ml @ 0 mls/hr PROTOCOL IV 07/26/24 13:30 07/27/24 12:04 DC Fentanyl Citrate 100 ml @ 0 mls/hr PROTOCOL IV 07/27/24 12:30 07/29/24 13:42 DC 07/29/24 02:03 5 MLS/HR Fentanyl/Sodium Chloride 250 ml @ 0.1 mls/hr PROTOCOL IV 07/27/24 12:00 07/27/24 12:05 DC Fluconazole/ Sodium Chloride 100 ml @ 100 mls/hr Q24H IV 07/26/24 13:30 08/25/24 13:29 08/05/24 12:19 100 MLS/HR Furosemide (LASix 20MG VIAL) 20 mg Q8H IV 07/28/24 15:30 08/27/24 15:29 08/06/24 06:15 20 MG Glucagon (Glucagon 1mg Kit) 1 mg AD PRN IM HYPOGLYCEMIA PROTOCOL 07/27/24 16:00 08/26/24 15:59 Hydromorphone HCl (DiLAUDid 0.5MG INJ) 0.5 mg Q4H PRN IVP SEVERE PAIN (7-10) 07/29/24 14:00 08/03/24 13:59 DC 08/02/24 11:44 0.5 MG Insulin Glargine (LANtus 100 UNITS/ML 10 ML VIAL) 5 units HS SQ 07/27/24 21:00 07/29/24 09:47 DC 07/28/24 20:48 5 UNITS Insulin Glargine (LANtus 100 UNITS/ML 10 ML VIAL) 15 units BID SQ 07/29/24 21:00 08/28/24 20:59 08/05/24 21:42 15 UNITS Insulin Glargine (LANtus 100 UNITS/ML 10 ML VIAL) 15 units HS SQ 07/29/24 21:00 07/29/24 13:43 DC Insulin Human Regular (humuLIN R 100 UNIT/ML 3ML) INSULIN SLIDING SCAL... Q6H6 SQ 07/26/24 00:00 08/25/24 00:00 08/05/24 12:17 2 UNIT Ipratropium [place] (AtrovENT UD) 0.5 mg [id number] IH 07/30/24 18:00 08/29/24 17:59 08/06/24 07:04 0.5 MG Linezolid 300 ml @ 150 mls/hr Q12H IV 08/03/24 13:00 08/13/24 12:59 08/06/24 00:05 150 MLS/HR Magnesium Sulfate 50 ml @ 0 mls/hr PROTOCOL PRN IV hypomagnesemia 07/25/24 18:00 08/24/24 17:59 08/06/24 10:01 0 MLS/HR Meropenem (Merrem 1gm) 1 gm Q12H IVPB 07/27/24 15:30 08/03/24 03:31 DC 08/03/24 03:31 1 GM Meropenem (Merrem 1gm) 1 gm Q12H IVPB 08/03/24 15:30 08/10/24 03:31 08/06/24 03:15 1 GM Metoprolol Tartrate (loprESSOR) 2.5 mg Q12H9 IV 07/31/24 21:00 08/30/24 20:59 08/06/24 09:09 2.5 MG Midazolam HCl 50 ml @ 0 mls/hr PROTOCOL IV 07/26/24 13:30 07/29/24 13:42 DC Nystatin (MycoSTATin 30 GM CREAM) 1 APPL BID TP 07/31/24 21:00 08/30/24 20:59 08/06/24 09:09 1 APPL Ondansetron HCl (zoFRAN 4MG INJ) 4 mg Q6H PRN IVP NAUSEA/VOMITING 07/25/24 18:00 08/24/24 17:59 08/03/24 15:32 4 MG Pharmacy Profile Note (Lace Assessment) 1 each AD MISC 07/27/24 15:30 07/27/24 15:14 DC Pharmacy Profile Note (Lace Assessment) 1 each AD MISC 08/03/24 11:00 08/03/24 11:10 DC Pharmacy Profile Note (Pharmacy Communication) 1 each ONCE MISC 07/27/24 15:00 07/28/24 07:29 DC Pharmacy Profile Note (Pharmacy Communication) 1 each ONCE MISC 08/03/24 11:00 08/03/24 11:47 DC Pharmacy Profile Note (Pharmacy Communication) 1 each ONCE MISC 08/03/24 11:00 08/03/24 11:53 DC Phenol (Sore Throat [place]) 1 spry Q4H PRN PO SORE THROAT 08/01/24 05:00 08/31/24 04:59 08/03/24 10:19 1 SPRY Phenylephrine HCl 100 mg/Sodium Chloride 250 ml @ 0 mls/hr AD PRN IV TITRATE 07/26/24 13:30 08/03/24 13:31 DC 07/30/24 04:41 9.52 MLS/HR Piperacillin Sod/ Tazobactam Sod (Zosyn 3.375gm+NS 50ml) 3.375 gm Q12H IV 07/25/24 20:00 07/25/24 17:27 DC Piperacillin Sod/ Tazobactam Sod (Zosyn 3.375gm+NS 50ml) 3.375 gm Q8H IVPB 07/25/24 19:00 07/26/24 21:40 DC 07/26/24 19:40 3.375 GM Piperacillin Sod/ Tazobactam Sod (Zosyn 3.375gm+NS 50ml) 3.375 gm Q8H IVPB 07/25/24 20:00 07/25/24 18:49 DC Potassium Chloride 100 ml @ 50 mls/hr AD PRN IV POTASSIUM PROTOCOL 07/25/24 18:00 08/24/24 17:59 08/05/24 16:38 50 MLS/HR Propofol 100 ml @ 0 mls/hr AD PRN IV TITRATE 07/26/24 13:30 07/29/24 13:42 DC 07/29/24 02:49 12.2 MLS/HR Sodium Chloride 1,000 ml @ 50 mls/hr Q20H IV 08/04/24 11:30 09/03/24 11:29 08/06/24 09:10 50 MLS/HR Sodium Chloride 1,000 ml @ 125 mls/hr Q8H IV 07/25/24 17:30 07/27/24 16:01 DC 07/27/24 07:58 125 MLS/HR Sodium Chloride (NS 50ml) 50 ml AD IV 07/25/24 17:00 07/25/24 17:29 DC Vancomycin HCl 250 ml @ 125 mls/hr Q12H IV 07/31/24 04:00 08/02/24 04:37 DC 08/01/24 03:10 125 MLS/HR Vancomycin HCl 250 ml @ 125 mls/hr Q12H IV 08/02/24 05:00 08/03/24 11:09 DC 08/02/24 17:22 125 MLS/HR Vancomycin HCl 250 ml @ 125 mls/hr Q24H IV 07/26/24 17:00 07/27/24 15:09 DC 07/26/24 19:55 125 MLS/HR Vancomycin HCl (Vancomycin Protocol) 1 each AD IV 07/25/24 17:00 07/27/24 14:55 DC Vancomycin HCl (Vancomycin Protocol) 1 each AD IV 07/30/24 15:00 08/03/24 11:09 DC Wound Care/ Dressing Products (Venelex Ointment) BID TP 07/31/24 21:00 08/30/24 20:59 08/06/24 09:09 1 GM Diagnostics / Radiology: [COPY/PASTE HERE IF NO REPORTS PLEASE DELETE SECTION] Assessment: Abnormal imaging with viscous perforation Plan: Follow surgery recommendations ROSANA JIMENEZ CUSTOMER RELATIONS CONSULTANT Aug 06, 2024 10:31
[2024-08-06 10:45] LABS: HEMATOCRIT 25.4 % (36-48); MEAN CORPUSCULAR HGB CONC 31.9 g/dL (32.0-36.0); MEAN CORPUSCULAR VOLUME 84.7 fL (79-99); RED CELL DISTRIBUTION WIDTH 17.8 % (11.0-15.5); WHITE BLOOD COUNT (AUTO) 18.7 K/uL (4.8-10.8)
[2024-08-06 10:51] LABS: CREATININE 0.6 mg/dL (0.5-1.0); POTASSIUM 3.2 mmol/L (3.5-5.1)
[2024-08-06 10:58] LABS: ALBUMIN 1.2 g/dL (3.5-5.0); BILIRUBIN,TOTAL 0.6 mg/dL (0.2-1.0); MAGNESIUM 1.7 mg/dL (1.80-2.40); TOTAL PROTEIN, SERUM 4.8 g/dL (6.0-8.3)
--- NOTE | 2024-08-06 12:12 | NUR ---
NOTE PT STARTING BLADDER TRAINING. CLAMPED TUBING AT 1211. WILL CONTINUE TO MONITOR.
--- NOTE | 2024-08-06 12:23 | NUR ---
NOTE PATIENT BLOOD SUGAR BACK AT 54. ORANGE JUICE GIVEN. WILL CONTINUE TO MONITOR.
[2024-08-06] MEDS: PoTASSium chloRIDE 20MEQ/100ML 100 ML IV ONE (12:47)
[2024-08-06] MEDS: PoTASSium chl 10% ELIXIR 20MEQ 20 MEQ/15 ML UDCUP PO PRN (12:49)
[2024-08-06] MEDS ORDERED: MAGNESIUM 2GM PREMIX 50ML 50 ML IV SCH (13:00)
--- NOTE | 2024-08-06 15:50 | NUR ---
BEDSIDE SWALLOW EVAL COMPLETED. NO S/S OF ASPIRATION. RECOMMEND MINCED AND MOIST SOLIDS, THIN LIQUIDS AND PILLS WHOLE 1 PER SWALLOW OR CRUSHED TOLERATED. COMPENSATORY STRATEGIES: 1. SIT UPRIGHT DURING ORAL INTAKE 2. SMALL BITES/SIPS 3. SLOW ORAL INTAKE 4. EXTRA DRY SWALLOWS NON PROFIT JOB TITLES REVIEWED RESULTS AND RECOMMENDATIONS WITH PATIENT AND NURSE ANGELITA. NON PROFIT JOB TITLES EDUCATED PATIENT ON RISKS AND CONSEQUENCES OF ASPIRATION. SPEECH THERAPY NOT WARRANTED AT THIS TIME. ALL QUESTIONS ANSWERED. Addendum: 08/06/[address] [facility] CAN Amended: Links added.
--- NOTE | 2024-08-06 16:19 | HMCIMG ---
US VENOUS DOPPLER UNILATERAL REASON: r/o dvt COMPARISON: None Technique: Left upper extremity venous doppler ultrasound was performed with spectral analysis and color flow imaging technique. FINDINGS: There is normal-appearing visualized portions of the subclavian vein. Axillary and brachial veins appear normal as does the basilic vein. There are some areas where the veins are partially collapsed but there is no evidence of deep venous thrombosis. IV catheter is noted in the basilic vein extending to the axillary vein into the subclavian vein. IMPRESSION: 1. No evidence of deep venous thrombosis in the left upper extremity.
--- NOTE | 2024-08-06 18:21 | PN ---
GENERAL SURGERY PROGRESS NOTE DATE OF SERVICE: Aug 06, 2024 TIME OF SERVICE: 18:20 PROBLEM LISTS: [ ] INTERVAL HISTORY: [ ] PHYSICAL EXAMINATION: GENERAL: [Patient is lying comfortably in bed, not in any obvious distress.] HEAD: [Normal with no signs of head trauma.] EYES: [Not pale not jaundiced afebrile to touch.] ENT: [ Normal.] NECK: [Supple,no tenderness,no lymphadenopathy,no masses,no thyromegaly ,no bruits, no JVD.] LUNGS: [Clear breath sounds bilaterally. No wheezes, rales, or rhonchi.] HEART: [Regular rate and rhythm. Normal S1 and S2, without murmurs, rub or gallop.] VASC: [No edema. Peripheral pulses normal and equal in all extremities.] ABD: [Bowel sounds present,soft, RUQ tender, no masses, no organomegaly.] : [Normal, no suprapubic tenderness.] LYMPH: [No lymphadenopathy noted.] EXT: [ Warm soft, non tender.] SKIN: [ No rashes or lesions.] NEURO: [ Awake Alert and oriented x3.] LABORATORY: [ ] Hematology Labs: Test 08/06/24 10:38 Range/Units White Blood Count 18.7 #H 4.8-10.8 K/uL Red Blood Count 3.00 L 4.00-5.50 MIL/uL Hemoglobin 8.1 L 12.0-16.0 g/dL Hematocrit 25.4 L 36-48 % Mean Corpuscular Volume 84.7 79-99 fL Mean Corpuscular Hemoglobin 27.0 27.0-33.0 pg Mean Corpuscular Hemoglobin Concent 31.9 L 32.0-36.0 g/dL Red Cell Distribution Width 17.8 H 11.0-15.5 % Platelet Count 351 130-400 K/uL Mean Platelet Volume 11.4 H 7.5-10.5 fL Nucleated Red Blood Cells 0.0 0.0-0.19 % Chemistry Labs: Test 08/06/24 12:11 08/06/24 10:38 Range/Units Whole Blood Glucose 54 #L 70-110 MG/DL Sodium Level 137 136-145 mmol/L Potassium Level 3.2 L 3.5-5.1 mmol/L Chloride Level 102 101-111 mmol/L Carbon Dioxide Level 32 21-32 mmol/L Blood Urea Nitrogen 33 H 7-18 mg/dL Creatinine 0.6 0.5-1.0 mg/dL Glomerular Filtration Rate Calc 103 >90 mL/min Random Glucose 59 #L 70-105 mg/dL Total Calcium 8.2 L 8.5-10.1 mg/dL Magnesium Level 1.70 L 1.80-2.40 mg/dL Total Bilirubin 0.6 0.2-1.0 mg/dL Aspartate Amino Transf (AST/SGOT) 43 H 10-37 U/L Alanine Aminotransferase (ALT/SGPT) 60 12-78 U/L Alkaline Phosphatase 292 H 50-136 U/L Total Protein 4.8 L 6.0-8.3 g/dL Albumin 1.2 L 3.5-5.0 g/dL DIAGNOSTICS / RADIOLOGY: [Copy/Paste Echos/Imaging Report here] ASSESSMENT: [] PLAN: Advance diet PT/OT ambulate showcase maker for LTAC please FERNANDO CONTRERAS MD Aug 06, 2024 18:21
--- NOTE | 2024-08-06 22:04 | PN ---
[facility] PROGRESS NOTE Date Patient Seen: Aug 06, 2024 Time of Visit: 13:59 Supervising Physician: DR. SESAR BAUMAN Primary Care Physician: [Dr. Villarreal of [facility] ] Outpatient Specialists: [GI: Dr. Solitario ] Inpatient Consults: [Dr. Quintero of surgery ] PROBLEM LIST: Septic shock from below requiring pressors,resolving Bacterial peritonitis POA + Enterococcus Raffinosus and Klebsiella pneumoniae Bowel perforation w/ Pneumoperitoneum-POA S/P exploratory laparotomy with drainage of intra-abdominal abscess/ventral hernia repair/small-bowel resection/lysis of adhesions/left open and a wound VAC on 07/26/24 per Removal of previously placed ABThera wound VAC & Placement of Seprafilm adhesion barrier 07/28/24 per Incarcerated ventral hernia POA Primary repair ventral hernia 07/28/24 Left Lateral Hernia POA Primary repair left flank hernia 07/28/24 Acute cholecystitis, POAopen cholecystectomy on 07/28/24 High risk for ischemic bowel-POA Acute hypokalemia-POA Dehydration-POA SHARMILA not POA Lactic acidosis-POA Hyperglycemia 2/2 uncontrolled diabetes mellitus Primary HTN HX of colitis HX of inflammatory bowel disease (Crohn's Disease) Recent hospitalization for UTI with outpatient Zosyn antibiotic with Dr. Diaz INTERVAL HISTORY: This is Day 1 open cholecystectomy with removal of previously placed ABTHera wound VAC, placement of ceftriaxone home adhesion barrier, primary repair of left flank hernia and repair of ventral hernia per . no further plans of taking pt back to OR per report. Per RN no major overnight event. Patient is on sedation vacation this morning still 117 to wake up grimaces to movement. Will attempt CPAP this morning. Weaning Jose Armando-Synephrine currently yesterday 0.1 mcg/kg per minute. Lines: Right IJ Cordis, arterial line, OG tube, ET tubes, Troy catheter, DP is. Left BYRON drain 320 mL with red BYRON draining 120 mL. She remains NPO on TPN at 75 mL/hour. Urine output of 3.6 L,-1.9 L balance Patient's problems has been updated of plan of care and verbalizes underst anding. He continues IV antibiotics. Intra-abdominal fluid culture growing positive for Klebsiella pneumoniae and Enterococcus Raffinosus. White count is 9.8 similar to yesterday, H&H stable 8.61/28.5 platelet count trending down 76 K today. Creatinine of 0.7 with GFR of 99 kidneys are improved. Magnesium of 1.7 covered per protocol. Blood sugar of 311 mg/dL insulin adjusted. X-ray stable. ET tube 4.4 cm with the ld. No pneumothorax. 07/30/2024: At the time of my evaluation, the patient was lying in bed. She remains intubated and on mechanical vent support. On the monitor, the patient was marginally tachycardic, tachypneic and blood pressure within normal ranges. Laboratory data today showed improved WBC down to 10.6 there was no profound anemia or thrombocytopenia. Chemistry panel showed no major electrolyte derangement or renal parameter changes. No new microbiology data for review today. Chest imaging showed bilateral pneumonic infiltrates and cardiomegaly. No other complaint. 07/31/2024: At the time of my evaluation, the patient was lying in bed. Family member and staff nurse are present at the bedside. Per the staff nurse, no acute events overnight. On the monitor, the patient had no febrile events, no tachycardia or tachypnea. Blood pressure between normal range and she remains on nasal cannula for oxygen supplementation. Laboratory data today , showed no leukocytosis, there was significant anemia 7.3/23.5 and platelet count of 119. No chemistry was collected for today. Imaging for today still shows pulmonary vascular congestion and pneumonic infiltrates bilaterally. Troy catheter remains in place and patient had a documented urinary output of 2700 mL and a net balance of -28.0. No other complaint 08/01/2024: At the time of my evaluation, the patient was lying in bed. Staff nurse reports no acute events overnight. On the monitor, the patient is with borderline tachycardia, no tachypnea and normotensive. She remains on a nasal cannula for oxygen supplementation. Surgical site, is benign. BYRON drain x2 totaling 335 mL out voided output of 4800 mL over the past 24 hours with a net balance of -2585.1. Laboratory data today did show a drop in H&H to 7.1/23.4 and a platelet count of 111. Chemistry panel showed a potassium of 3.2, renal parameters were not of concern. No new microbiology data for review. Chest x- ray today showed bilateral pneumonic infiltrate and a right mid lung atelectasis. There was also borderline cardiomegaly. Currently, the patient remains on antibiotic coverage with meropenem, fluconazole and vancomycin. She is also on nutritional support with TPN. No other complaint. 08/02/2024: At the time of my evaluation, the patient was lying in bed. Staff nurse reports no acute events overnight. The patient is breathing on room air. On the monitor, parameters are unremarkable. Laboratory data showed a hemoglobin of 9.7 and hematocrit of 31.3. Platelet count 166. Chemistry panel was notable for a potassium of 3.2 otherwise unremarkable no new imaging for review today. Currently, the patient remains on TPN for nutritional support and is on antibiotic therapy with Merrem, vanco and fluconazole. No other complaint. 08/03 patient is evaluated at bedside. Her WBCs significantly increased to 27 then 34 up from eight yesterday. Her hemoglobin has remained stable at 11.2. No fever overnight. Her BYRON drain has normal serous fluid with minimal output since yesterday. She is pending a repeat CT abdomen. General surgery is aware, pending further recommendation. Patient states her pain is actually improved from yesterday. 08/04 patient was evaluated at bedside. She had two episodes of nonbloody emesis yesterday. She remains NPO today and continues on TPN. General surgery has ordered IV fluids. Her WBC his downtrending but still significantly elevated at 30. Patient states her pain is much decreased. No fever reported overnight. Continues on IV antibiotic. 08/05 patient is evaluated at bedside. Her WBCs downtrending currently 223. Hemoglobin is persistently decreasing, from 11.22 days ago to 7.7 today. No signs of bleeding per BYRON drain which has minimal normal serous fluid and Troy bag which has normal colored urine. Continues NPO with TPN. No current fever or abdominal pain. No nausea or vomiting. Continue to follow General surgery recommendation. 08/06 Patient seen and examined at the bedside, he is off TPN, he has no fever, chills, nausea or vomiting, No abdominal pain or diarrhea no new events plan is to repeat labs in am , advance on diet as tolerates. REVIEW OF SYSTEMS: 12- point system review was carried out, pertinent positive documented above otherwise negative. PHYSICAL EXAM: GENERAL: Critically- ill appearing. HEENT: Sclera non icteric, moist mucosa pupils3 mm echo and sluggish NECK: Supple, no JVD, trachea midline right IJ Cordis LUNGS: Diminished breath sounds bilaterally. No wheezes HEART: Regular rate and rhythm. Normal S1 and S2, without murmurs ABD: Obese abdomen, mid abdomen dressing clean dry and intact. Bilateral BYRON present. EXT: No clubbing cyanosis or edema. Troy in situ NEURO: Awake, alert and follows commands. Vital Signs (last 8hr) Date Time Temp Pulse Resp B/P (MAP) Pulse Ox O2 Delivery O2 Flow Rate FiO2 08/06/24 21:50 105 124/84 08/06/24 21:03 97.5 105 17 124/84 96 Room Air 08/06/24 19:18 104 18 N/A Room Air 21 08/06/24 19:17 105 18 08/06/24 16:00 97.5 99 19 140/90 96 Room Air LABS: Hematology Labs: Test 08/06/24 10:38 Range/Units White Blood Count 18.7 #H 4.8-10.8 K/uL Red Blood Count 3.00 L 4.00-5.50 MIL/uL Hemoglobin 8.1 L 12.0-16.0 g/dL Hematocrit 25.4 L 36-48 % Mean Corpuscular Volume 84.7 79-99 fL Mean Corpuscular Hemoglobin 27.0 27.0-33.0 pg Mean Corpuscular Hemoglobin Concent 31.9 L 32.0-36.0 g/dL Red Cell Distribution Width 17.8 H 11.0-15.5 % Platelet Count 351 130-400 K/uL Mean Platelet Volume 11.4 H 7.5-10.5 fL Nucleated Red Blood Cells 0.0 0.0-0.19 % Chemistry Labs: Test 08/06/24 18:27 08/06/24 10:38 Range/Units Whole Blood Glucose 70 70-110 MG/DL Sodium Level 137 136-145 mmol/L Potassium Level 3.2 L 3.5-5.1 mmol/L Chloride Level 102 101-111 mmol/L Carbon Dioxide Level 32 21-32 mmol/L Blood Urea Nitrogen 33 H 7-18 mg/dL Creatinine 0.6 0.5-1.0 mg/dL Glomerular Filtration Rate Calc 103 >90 mL/min Random Glucose 59 #L 70-105 mg/dL Total Calcium 8.2 L 8.5-10.1 mg/dL Magnesium Level 1.70 L 1.80-2.40 mg/dL Total Bilirubin 0.6 0.2-1.0 mg/dL Aspartate Amino Transf (AST/SGOT) 43 H 10-37 U/L Alanine Aminotransferase (ALT/SGPT) 60 12-78 U/L Alkaline Phosphatase 292 H 50-136 U/L Total Protein 4.8 L 6.0-8.3 g/dL Albumin 1.2 L 3.5-5.0 g/dL DIAGNOSTICS / RADIOLOGY RESULTS: [ ] PLAN Lovenox 40 mg sq daily Obtain Lactic acid , Phos discontinue Troy Cath advance on diet as tolerates Follow General surgery recommendation Monitor hemoglobin closely Continue IV antibiotics Monitor BYRON tube drainage Monitor for signs of sepsis Monitor hemodynamics Further management based on above NEURO: Minimize central acting medications as possible. Maintain fall precautions, adequate lighting during the day PULMONARY: Supplemental 02 as needed. Maintain aspiration precautions at all times CARDIOVASCULAR: Follow hemodynamics. Vital signs per facility protocol GI & NUTRITION: Continue with nutritional support. Continue stool softeners and laxatives as needed. KIDNEYS & ELECTROLYTES: Strict monitoring of intake, output and overall fluid balance. Avoid nephrotoxic medications to the extent possible. Medications to be dosed according to renal function. Monitor electrolytes and replace as needed ENDOCRINE: Maintain blood glucose between 100-180 at all times. Hypoglycemia protocol in place INFECTIOUS DISEASE: Trend temperature, WBC and procalcitonin level Follow cultures, deescalate antibiotics as soon as possible. Panculture if new onset fever ONCOLOGY/HEMATOLOGY/COAGULATION: Monitor for s/s of bleeding Monitor hemoglobin, coagulation studies as needed SKIN: Pressure ulcer prevention per facility protocol Specialty mattress ORTHO/REHAB: Continue PT/OT Prophylaxis: Continue GI and DVT prophylaxis Code Status: Full Resuscitation Disposition: TBD Other: Patient was seen and case discussed with gene CHAUDHARI. Plan of care was discussed and agreed upon. Total time spent on patient care is 48 minutes. This does not include time spent on procedures. ATTESTATION BY PHYSICIAN Documentation assistance provided by a scribe, information recorded by the scribe was done at my direction and has been reviewed and validated by me." SESAR BAUMAN MD I personally scribed for SES[facility]UMAN MD [facility] on 08/06/24 at 22:04. Electronically submitted by Jenelle Landeros ([id number]). SESAR BAUMAN MD Aug 06, 2024 22:04
[2024-08-06] MEDS: acetaMINOPHEN 325 MG TAB PO PRN (23:11)
--- NOTE | 2024-08-06 23:37 | PN ---
INFECTIOUS DISEASE PROGRESS NOTE Date of Service: Aug 06, 2024 SUBJECTIVE: Patient was seen and examined at bedside in room 326. Patient's WBC this morning has trended down to 18.7 but no fever, temperature is 97.5. Will continue on Meropenem, linezolid and fluconazole. Patient has been started on clear liquid diet and the TPN has been discontinued. Patient denying nausea and vomiting. Reported she is still feeling very weak and performing poorly with physical therapy. She was able to sit up on the bedside chair for 10 minutes. Continue with two BYRON drains and draining very little serous drainage. PHYSICAL EXAM EYES: Anicteric. Pupils equal and reactive. HENT: No oral thrush seen, moist Oral mucosa. NECK: Supple, no JVD or thyromegaly. LUNGS: Good air entry. No rales, no rhonchi. CARDIOVASCULAR: S1, S2 regular. No murmur heard. ABDOMEN: Soft, non tender, bowel sounds present, no organomegaly. Abdominal surgical incision with BYRON drain. CENTRAL NERVOUS SYSTEM: Awake, alert and oriented x3. SKIN: No rashes, no swelling. LYMPHATICS: No peripheral lymphadenopathy. MUSCULOSKELETAL: No joint swelling, erythema or tenderness. EXTREMITIES: No cyanosis or clubbing. BACK: No deformity, no pressure ulcer. GENITOURINARY: No dysuria or hematuria. [place] catheter. Vital Sign (Last 12 Hours) 08/06/24 08/06/24 08/06/24 08/06/24 11:55 12:00 16:00 19:17 Temp 97.5 97.5 Pulse 96 96 99 105 Resp 18 19 19 18 B/P (MAP) 123/83 140/90 Pulse Ox 96 96 O2 Delivery Room Air Room Air 08/06/24 08/06/24 08/06/24 08/06/24 19:18 21:03 21:50 23:29 Temp 97.5 Pulse 104 105 105 74 Resp 18 17 18 B/P (MAP) 124/84 124/84 Pulse Ox 96 O2 Delivery N/A Room Air Room Air FiO2 21 Intake & Output (last 24hrs) 08/05/24 08/05/24 08/06/24 15:00 23:00 07:00 Intake Total 0 ml 0 ml Output Total 1470 ml 900 ml Balance 0 ml -1470 ml -900 ml LABS: Laboratory: Test 08/06/24 18:27 08/06/24 10:38 Range/Units Whole Blood Glucose 70 70-110 MG/DL White Blood Count 18.7 #H 4.8-10.8 K/uL Red Blood Count 3.00 L 4.00-5.50 MIL/uL Hemoglobin 8.1 L 12.0-16.0 g/dL Hematocrit 25.4 L 36-48 % Mean Corpuscular Volume 84.7 79-99 fL Mean Corpuscular Hemoglobin 27.0 27.0-33.0 pg Mean Corpuscular Hemoglobin Concent 31.9 L 32.0-36.0 g/dL Red Cell Distribution Width 17.8 H 11.0-15.5 % Platelet Count 351 130-400 K/uL Mean Platelet Volume 11.4 H 7.5-10.5 fL Nucleated Red Blood Cells 0.0 0.0-0.19 % Sodium Level 137 136-145 mmol/L Potassium Level 3.2 L 3.5-5.1 mmol/L Chloride Level 102 101-111 mmol/L Carbon Dioxide Level 32 21-32 mmol/L Blood Urea Nitrogen 33 H 7-18 mg/dL Creatinine 0.6 0.5-1.0 mg/dL Glomerular Filtration Rate Calc 103 >90 mL/min Random Glucose 59 #L 70-105 mg/dL Total Calcium 8.2 L 8.5-10.1 mg/dL Magnesium Level 1.70 L 1.80-2.40 mg/dL Total Bilirubin 0.6 0.2-1.0 mg/dL Aspartate Amino Transf (AST/SGOT) 43 H 10-37 U/L Alanine Aminotransferase (ALT/SGPT) 60 12-78 U/L Alkaline Phosphatase 292 H 50-136 U/L Total Protein 4.8 L 6.0-8.3 g/dL Albumin 1.2 L 3.5-5.0 g/dL ASSESSMENT: Intestinal perforation, s/p closure of exploratory laparotomy on 07/28/2024. Intra-abdominal abscess with polymicrobial infection, status post open drainage 07/26/2024. Peritonitis. Leukocytosis. Anemia requiring blood transfusion. Respiratory failure requiring intubation, s/p extubated. History of colitis. Debility. PLAN: Continue linezolid IV. Continue Meropenem. Continue fluconazole. Continue GI prophylaxis. Continue physical therapy. We will monitor electrolytes. Continue antiemetics. Continue Nutritional support as recommended by General surgery. This case was reviewed and discussed with my supervising physician and the above assessment and plan was formulated and agreed upon. ATTESTATION BY PHYSICIAN I have seen and examined the patient. I reviewed the documentation, medical decision making, and treatment plan as noted by the mid-level provider above. I agree with the findings and plan of care. MILLIE CHATTERJEE MD, [facility] Aug 06, 2024 23:37
[2024-08-06] MEDS: acetaMINOPHEN 325 MG TAB ONE (23:56)
[2024-08-07] VITALS (13 sets, daily range): BP systolic 124–143; BP diastolic 75–91; PULSE 90–115; RESP 17–19; TEMP 97.3–98; O2SAT 96–98
[2024-08-07 05:42] LABS: HEMATOCRIT 24.2 % (36-48); MEAN CORPUSCULAR HEMOGLOBIN 26.4 pg (27.0-33.0); MEAN CORPUSCULAR VOLUME 85.2 fL (79-99); RED BLOOD CELL COUNT(AUTO) 2.84 MIL/uL (4.00-5.50); RED CELL DISTRIBUTION WIDTH 17.5 % (11.0-15.5); WHITE BLOOD COUNT (AUTO) 12.9 K/uL (4.8-10.8)
[2024-08-07 06:01] LABS: ALBUMIN 1.1 g/dL (3.5-5.0); BILIRUBIN,TOTAL 0.5 mg/dL (0.2-1.0); CREATININE 0.6 mg/dL (0.5-1.0); PHOSPHORUS 3.4 mg/dL (2.5-4.9); POTASSIUM 3.5 mmol/L (3.5-5.1); TOTAL PROTEIN, SERUM 4.8 g/dL (6.0-8.3)
[2024-08-07] MEDS: ENOXAPARIN SODIUM 40 MG/0.4 ML SYRINGE SQ SCH (08:14)
--- NOTE | 2024-08-07 08:59 | PN ---
GASTROENTEROLOGY PROGRESS NOTE Date of Visit: Aug 07, 2024 Time of Visit: 08:59 Events / Notes: [ ] Review of Systems: CONSTITUTIONAL: No malaise or change in sensation of wellbeing. ENMT: No rhinorrhea, otorrhea, sinus pain, ear ache. CARDIOVASCULAR: No angina, palpitations, orthopnea or paroxysmal dyspnea. RESPIRATORY: No SOB. GASTROINTESTINAL: No abdominal pain, nausea, vomiting, diarrhea, hematemesis, melena or change in the patient's habitual bowel movements consistency/number. GENITOURINARY: No dysuria, hematuria or change in bladder continence. MUSCULOSKELETAL: No new muscle pain or decrease in muscular strength. No new joint swelling, redness or tenderness. SKIN: No new rash. Physical Exam: GEN: Awake, alert, oriented in person, time and place, and in no acute distress. HEENT: No sinus tenderness. Tympanic membranes were not examined. No rhinorrhea. Oral pharyngeal mucosa is pink, moist and within normal limits. Neck is supple with no cervical lymphadenopathy, thyromegaly or JVD. CHEST: Inspection, palpation and percussion of the chest were unremarkable. Lung auscultation revealed normal breath sounds bilaterally. CARDIAC: PMI is within normal limits. Heart sounds are regular. Normal S1, S2. No gallop or murmur. ABD: Soft, non-tender and not distended. No peritoneal signs on palpation. No organomegaly. Normal bowel sounds. EXT: No cyanosis or clubbing. No edema. SKIN: Intact. No rashes. JOINTS: No evidence of synovitis or acute arthritis. NEURO: Alert and oriented to name, place and person. Cranial nerve examination is unremarkable. No focal motor deficits. Normal speech. Gait is normal. Strength is normal. Vital Signs (last 8hr) Date Time Temp Pulse Resp B/P (MAP) Pulse Ox O2 Delivery O2 Flow Rate FiO2 08/07/24 08:11 90 140/89 08/07/24 08:00 97.5 90 17 140/89 96 Room Air 08/07/24 07:08 90 18 N/A Room Air 21 08/07/24 04:22 97.5 91 17 128/75 94 Room Air 08/07/24 01:09 98.1 96 18 142/91 98 Room Air Laboratory: [ ] Laboratory: Test 08/07/24 06:11 08/07/24 05:16 Range/Units Whole Blood Glucose 74 70-110 MG/DL White Blood Count 12.9 #H 4.8-10.8 K/uL Red Blood Count 2.84 L 4.00-5.50 MIL/uL Hemoglobin 7.5 L 12.0-16.0 g/dL Hematocrit 24.2 L 36-48 % Mean Corpuscular Volume 85.2 79-99 fL Mean Corpuscular Hemoglobin 26.4 L 27.0-33.0 pg Mean Corpuscular Hemoglobin Concent 31.0 L 32.0-36.0 g/dL Red Cell Distribution Width 17.5 H 11.0-15.5 % Platelet Count 331 130-400 K/uL Mean Platelet Volume 11.3 H 7.5-10.5 fL Nucleated Red Blood Cells 0.0 0.0-0.19 % Sodium Level 138 136-145 mmol/L Potassium Level 3.5 3.5-5.1 mmol/L Chloride Level 103 101-111 mmol/L Carbon Dioxide Level 29 21-32 mmol/L Blood Urea Nitrogen 27 H 7-18 mg/dL Creatinine 0.6 0.5-1.0 mg/dL Glomerular Filtration Rate Calc 103 >90 mL/min Random Glucose 80 70-105 mg/dL Lactic Acid Level 1.2 0.8-2.5 mmol/L Total Calcium 8.5 8.5-10.1 mg/dL Phosphorus Level 3.4 2.5-4.9 mg/dL Magnesium Level 2.00 1.80-2.40 mg/dL Total Bilirubin 0.5 0.2-1.0 mg/dL Aspartate Amino Transf (AST/SGOT) 49 H 10-37 U/L Alanine Aminotransferase (ALT/SGPT) 66 12-78 U/L Alkaline Phosphatase 356 H 50-136 U/L Total Protein 4.8 L 6.0-8.3 g/dL Albumin 1.1 L 3.5-5.0 g/dL Current Medications Medications (Trade) Dose Ordered Sig/Alexandra Route PRN Reason Start Time Stop Time Status Last Admin Dose Admin Acetaminophen (TYLenol 325MG TAB) 650 mg Q4H PRN PO TEMPERATURE GREATER THAN 101.5 08/06/24 23:30 09/05/24 23:29 08/07/24 08:16 650 MG Albumin Human 100 ml @ 50 mls/hr AD IV 07/28/24 08:00 07/31/24 07:59 DC Cefepime HCl (MAXipime 2 gm vial) 2 gm Q24H IVPB 07/26/24 22:00 07/27/24 14:55 DC 07/26/24 22:54 2 GM Dexmedetomidine/ Sodium Chloride (PRECEdex 400MCG/ 100ML-NS) 400 mcg PROTOCOL PRN IV agitation 07/29/24 14:00 08/03/24 13:31 DC 07/30/24 01:18 400 MCG Dextrose (D50w) 50 ml AD PRN IV HYPOGLYCEMIA PROTOCOL 07/27/24 16:00 08/26/24 15:59 08/07/24 00:07 50 ML Enoxaparin Sodium (Lovenox) 40 mg DAILY SQ 08/07/24 09:00 09/06/24 08:59 08/07/24 08:14 40 MG Famotidine (Pepcid 20mg Vial) 20 mg Q24H IV 07/25/24 21:00 08/24/24 20:59 08/06/24 21:50 20 MG Fat Emulsion Intravenous 250 ml @ 42 mls/hr QMOFR IV 07/29/24 09:00 08/05/24 16:31 DC 08/05/24 09:35 42 MLS/HR Fentanyl Citrate 100 ml @ 0 mls/hr PROTOCOL IV 07/26/24 13:30 07/27/24 12:04 DC Fentanyl Citrate 100 ml @ 0 mls/hr PROTOCOL IV 07/27/24 12:30 07/29/24 13:42 DC 07/29/24 02:03 5 MLS/HR Fentanyl/Sodium Chloride 250 ml @ 0.1 mls/hr PROTOCOL IV 07/27/24 12:00 07/27/24 12:05 DC Fluconazole/ Sodium Chloride 100 ml @ 100 mls/hr Q24H IV 07/26/24 13:30 08/25/24 13:29 08/06/24 12:49 100 MLS/HR Furosemide (LASix 20MG VIAL) 20 mg Q8H IV 07/28/24 15:30 08/27/24 15:29 08/07/24 06:17 20 MG Glucagon (Glucagon 1mg Kit) 1 mg AD PRN IM HYPOGLYCEMIA PROTOCOL 07/27/24 16:00 08/26/24 15:59 Hydromorphone HCl (DiLAUDid 0.5MG INJ) 0.5 mg Q4H PRN IVP SEVERE PAIN (7-10) 07/29/24 14:00 08/03/24 13:59 DC 08/02/24 11:44 0.5 MG Insulin Glargine (LANtus 100 UNITS/ML 10 ML VIAL) 5 units HS SQ 07/27/24 21:00 07/29/24 09:47 DC 07/28/24 20:48 5 UNITS Insulin Glargine (LANtus 100 UNITS/ML 10 ML VIAL) 15 units BID SQ 07/29/24 21:00 08/06/24 12:06 DC 08/05/24 21:42 15 UNITS Insulin Glargine (LANtus 100 UNITS/ML 10 ML VIAL) 15 units HS SQ 07/29/24 21:00 07/29/24 13:43 DC Insulin Human Regular (humuLIN R 100 UNIT/ML 3ML) INSULIN SLIDING SCAL... Q6H6 SQ 07/26/24 00:00 08/25/24 00:00 08/05/24 12:17 2 UNIT Ipratropium [place] (AtrovENT UD) 0.5 mg [id number] IH 07/30/24 18:00 08/29/24 17:59 08/06/24 23:28 0.5 MG Linezolid 300 ml @ 150 mls/hr Q12H IV 08/03/24 13:00 08/13/24 12:59 08/07/24 00:14 150 MLS/HR Magnesium Sulfate 50 ml @ 0 mls/hr PROTOCOL IV 08/06/24 13:00 09/05/24 12:59 Magnesium Sulfate 50 ml @ 0 mls/hr PROTOCOL PRN IV hypomagnesemia 07/25/24 18:00 08/06/24 17:19 DC 08/06/24 10:01 0 MLS/HR Meropenem (Merrem 1gm) 1 gm Q12H IVPB 07/27/24 15:30 08/03/24 03:31 DC 08/03/24 03:31 1 GM Meropenem (Merrem 1gm) 1 gm Q12H IVPB 08/03/24 15:30 08/10/24 03:31 08/07/24 05:15 1 GM Metoprolol Tartrate (loprESSOR) 2.5 mg Q12H9 IV 07/31/24 21:00 08/30/24 20:59 08/07/24 08:11 2.5 MG Midazolam HCl 50 ml @ 0 mls/hr PROTOCOL IV 07/26/24 13:30 07/29/24 13:42 DC Nystatin (MycoSTATin 30 GM CREAM) 1 APPL BID TP 07/31/24 21:00 08/30/24 20:59 08/07/24 08:20 1 APPL Ondansetron HCl (zoFRAN 4MG INJ) 4 mg Q6H PRN IVP NAUSEA/VOMITING 07/25/24 18:00 08/24/24 17:59 08/03/24 15:32 4 MG Pharmacy Profile Note (Lace Assessment) 1 each AD MISC 07/27/24 15:30 07/27/24 15:14 DC Pharmacy Profile Note (Lace Assessment) 1 each AD MISC 08/03/24 11:00 08/03/24 11:10 DC Pharmacy Profile Note (Pharmacy Communication) 1 each ONCE MISC 07/27/24 15:00 07/28/24 07:29 DC Pharmacy Profile Note (Pharmacy Communication) 1 each ONCE MISC 08/03/24 11:00 08/03/24 11:47 DC Pharmacy Profile Note (Pharmacy Communication) 1 each ONCE MISC 08/03/24 11:00 08/03/24 11:53 DC Phenol (Sore Throat [place]) 1 spry Q4H PRN PO SORE THROAT 08/01/24 05:00 08/31/24 04:59 08/03/24 10:19 1 SPRY Phenylephrine HCl 100 mg/Sodium Chloride 250 ml @ 0 mls/hr AD PRN IV TITRATE 07/26/24 13:30 08/03/24 13:31 DC 07/30/24 04:41 9.52 MLS/HR Piperacillin Sod/ Tazobactam Sod (Zosyn 3.375gm+NS 50ml) 3.375 gm Q12H IV 07/25/24 20:00 07/25/24 17:27 DC Piperacillin Sod/ Tazobactam Sod (Zosyn 3.375gm+NS 50ml) 3.375 gm Q8H IVPB 07/25/24 19:00 07/26/24 21:40 DC 07/26/24 19:40 3.375 GM Piperacillin Sod/ Tazobactam Sod (Zosyn 3.375gm+NS 50ml) 3.375 gm Q8H IVPB 07/25/24 20:00 07/25/24 18:49 DC Potassium Chloride 100 ml @ 50 mls/hr AD PRN IV POTASSIUM PROTOCOL 07/25/24 18:00 08/24/24 17:59 08/06/24 16:20 50 MLS/HR Potassium Chloride (K-Dur/Klor-Con 20meq) 20 meq AD PRN PO POTASSIUM PROTOCOL 08/06/24 12:30 09/05/24 12:29 Potassium Chloride (KCl 10% Elixir 20meq/15ml) 20 meq AD PRN PO POTASSIUM PROTOCOL 08/06/24 12:30 09/05/24 12:29 08/06/24 12:49 20 MEQ Propofol 100 ml @ 0 mls/hr AD PRN IV TITRATE 07/26/24 13:30 07/29/24 13:42 DC 07/29/24 02:49 12.2 MLS/HR Sodium Chloride 1,000 ml @ 50 mls/hr Q20H IV 08/04/24 11:30 08/06/24 12:06 DC 08/06/24 09:10 50 MLS/HR Sodium Chloride 1,000 ml @ 125 mls/hr Q8H IV 07/25/24 17:30 07/27/24 16:01 DC 07/27/24 07:58 125 MLS/HR Sodium Chloride (NS 50ml) 50 ml AD IV 07/25/24 17:00 07/25/24 17:29 DC Vancomycin HCl 250 ml @ 125 mls/hr Q12H IV 07/31/24 04:00 08/02/24 04:37 DC 08/01/24 03:10 125 MLS/HR Vancomycin HCl 250 ml @ 125 mls/hr Q12H IV 08/02/24 05:00 08/03/24 11:09 DC 08/02/24 17:22 125 MLS/HR Vancomycin HCl 250 ml @ 125 mls/hr Q24H IV 07/26/24 17:00 07/27/24 15:09 DC 07/26/24 19:55 125 MLS/HR Vancomycin HCl (Vancomycin Protocol) 1 each AD IV 07/25/24 17:00 07/27/24 14:55 DC Vancomycin HCl (Vancomycin Protocol) 1 each AD IV 07/30/24 15:00 08/03/24 11:09 DC Wound Care/ Dressing Products (Venelex Ointment) BID TP 07/31/24 21:00 08/30/24 20:59 08/07/24 08:20 1 GM Diagnostics / Radiology: [COPY/PASTE HERE IF NO REPORTS PLEASE DELETE SECTION] Assessment: Abnormal imaging with viscous perforation Plan: Follow surgery recommendations ROSANA JIMENEZ PROCUREMENT INTERN Aug 07, 2024 08:59
[2024-08-07] MEDS: PoTASSium chloRIDE 20MEQ ER 20 MEQ ERTAB PO PRN (09:58)
--- NOTE | 2024-08-07 10:23 | PN ---
[facility] PROGRESS NOTE Date of Service: Aug 07, 2024 Time of Service: 10:20 SUBJECTIVE: 59-year-old female the past medical history of hypertension who presented to the hospital secondary to abdominal pain. Patient stated for the past 3-4 days she has been having increasing abdominal pain with abdominal distention. She was feeling nauseated and had episodes of emesis at home. She denied any hematemesis, melena, hematochezia. Patient was previously hospitalized in [facility] around one month ago secondary to colitis. GI was consulted during admission and patient underwent colonoscopy with findings showing severe inflammation of the entire colon concerning for pancolitis. She was treated with IV steroids and and was to start patient on Remicade as outpatient. She denied any fever, chills, diarrhea. She was going to follow up with GI as outpatient on 07/26/24 but had worsening pain which caused her to come to the hospital for further evaluation. Labs in the ED were notable for white count of 10.3, hemoglobin was 12.8, platelet count was 363 K, sodium was 138, potassium was 2.8, creatinine is 1.0, blood glucose was 269, lactic acid on presentation was 8.[address] abdomen pelvis which showed free intraperitoneal air concerning for bowel perforation. There is a anterior ventral wall hernia with bowel content and air collection and fat stranding concerning for bowel perforation. Her colon was also noted to be inflamed. CT was performed without contrast. 07/26 BP 135/83, tachycardic 102, saturating 100% 2 L nasal cannula. CBC shows hemoglobin 11.0, hematocrit 35.9, WBC 18.8, platelet count of 203. Sodium 141, potassium 3.7, BUN of 29, creatinine slightly worse today at 1.2. ABG with pH 7.51, pCO2 of 28, PO2 62.6, bicarb of 22.5. Serology to include influenza, SARS and group A negative. Results of chest x-ray pending. Patient is scheduled to be taken to the OR today. 07/27 the patient remains admitted to the intensive care unit, intubated, on mechanical ventilation, status post exploratory laparotomy, postoperative day one, case discussed with the RN, patient on propofol, Jose Armando-Synephrine, wound VAC to the abdomen in place, noted to have right IJ line in place. Getting broad- spectrum IV antibiotics. Blood pressure 130/79, heart rate of 83, saturating 100% on mechanical ventilation, FiO2 40%. Leukocytosis is worse today at 28.1, drop in hemoglobin to 9.7, hematocrit 30.8, with a platelet count of 148. Potassium level 3.6, magnesium 1.6. Lactic acid from 8.2 down to 1.8 ABG with pH 7.4, pCO2 34, PO2 145, bicarb of 20. Chest x-ray shows bilateral lower lung infiltrates. Family at Bedside, updated 07/28 the patient has been seen and examined in the intensive care unit, she remains intubated, mechanical ventilation, on fentanyl, propofol and Jose Armando- Synephrine, getting broad-spectrum antibiotics, BP 112/84, afebrile, saturating 100% on mechanical ventilation, FiO2 40%. CBC with a hemoglobin 8.4, hematocrit 27.8, WBC of 16.3, platelet count of 89. Patient is status post exploratory laparotomy with drainage of intra-abdominal abscess/ventral hernia repair/small- bowel resection/NS of adhesions/left open and wound VAC on 07/23 05/28 by General surgery. Results of septic workup reviewed, Gram-negative rods. Patient with a possible ischemic colitis, plan to take the patient back to the operating room for further exploration. 07/29 Pt seen at bedside, no acute events overnight. She is s/p ex-lap with cholecystectomy. Currently on pressors, will wean as able. Remains intubated, PEEP 5, FiO2 30%, will continue with daily sedation vacations. She is mildly tachycardic. She is NPO, continue TPN per general surgery. WBC increased from 16.3 up to 16.8, Hgb improved from 8.4 up to 8.6, platelets decreased from 89 do wn to 76 07/30 Pt seen at bedside, no acute events overnight. She is s/p ex-lap with small bowel resection, appendectomy and drainage of intraabdominal abscess with wound vac post op day 4, repeat ex-lap with cholecystectomy, repair of left flank and ventral hernias post op day 2. Currently on pressors, will wean as able. Remains intubated, PEEP 5, FiO2 30%, she was on sedation vacation, in no acute distress, possible extubation today, will defer to critical care. She is NPO, continue TPN per general surgery. WBC improved from 16.8 down to 10.6, Hgb stable at 8.3, similar to yesterday, platelets improved from 76 up to 90, remai nder of her labs are relatively unremarkable. 07/31 patient seen at bedside, no acute events overnight. She is status post ex lap with small-bowel resection, appendectomy and drainage of intra-abdominal abscess with wound VAC postop day five, repeat ex lap with cholecystectomy, repair of left flank and ventral hernias postop day three. She has been successfully extubated, we will continue to try and wean pressors. Hemoglobin stable at 7.2, similar to yesterday, platelets decreased from 119-98, potassium mildly low at 3.2, we will be repleted according to protocol, remainder of her labs are relatively unremarkable. 08/02 patient seen at bedside, no acute events overnight. She is status post ex lap with small-bowel resection, appendectomy and drainage of intra-abdominal abscess with wound VAC postop day 6 repeat ex lap with cholecystectomy, repair of left flank and ventral hernias postop day 4. She has been successfully extubated, and weaned off pressors. She was transfused yesterday, Hgb improved from 6.9 up to 9.7, platelets improved to 166, potassium mildly low at 3.2, we will be repleted according to protocol, remainder of her labs are relatively unremarkable. She continues on TPN, diet to be addressed by general surgery. Only complaint is continued xuan-incisional pain 08/03 patient seen at bedside, no acute events overnight. At bedside she is in no acute distress, she has no complaints. She is status post ex lap with small- bowel resection, appendectomy and drainage of intra-abdominal abscess with wound VAC postop day 7 repeat ex lap with cholecystectomy, repair of left flank and ventral hernias postop day 5. WBC increased from 8.0 up to 27.1, this seemed to be and anomaly so a repeat CBC was ordered and WBC increased again to 34.4. Patient has been bolused 1 L of LR, repeat lactic acid was ordered and was mildly elevated at 2.5, wounds were examined at bedside and found to be clean dry and intact with no drainage or erythema. The BYRON drains are still draining serosanguineous fluid there does not appear to be sick succus suggesting bowel perforation. Discussed case with General surgery and Infectious Disease, we agreed to order a CT scan of the abdomen/pelvis to determine if there is a new abscess forming. Patient has not had watery bowel movements to suggest C diff and she is already on fluconazole. Hemoglobin increased from 8.7 up to 11.2, remainder of her labs are relatively unremarkable. Antibiotics were adjusted to Zyvox and meropenem. Further recommendations per Infectious Disease and General surgery. 08/04 patient seen at bedside, no acute events overnight. She has no complaints at bedside, reports her pain has improved today. She was made NPO yesterday after she vomited, we will resume clear liquid diet per General surgery recommendations. She is hemodynamically stable saturating well on room air, her WBC improved from 34.4 down to 30.8, hemoglobin decreased from 11.2 down to 8.6, potassium decreased from 4.1 down to 3.2, remainder of her labs are relatively unremarkable. Pt has been referred for LTAC, follow up with case management 08/05 patient is seen and examined, comfortable in bed, following commands, nutri tional support via TPN, BP 123/75, heart rate of 103, afebrile, saturating 97% room air. CBC shows a hemoglobin of 7.7, hematocrit 24.6, WBC 23.2, platelet count of 266. Sodium 137, potassium 3.4, BUN of 49, creatinine 0.7. The patient remains NPO. We will recheck CBC, transfuse 1 unit of PRBC if hemoglobin less than seven, replace electrolytes IV per protocol, continue to follow surgical input and recommendation, pending LTAC. Patient to continue broad-spectrum IV antibiotics with the meropenem, linezolid. Family at bedside, updated 08/06 the patient has been seen and examined during rounding, during my visit physical therapy evaluated the patient, noted to have swollen to the left upper extremity at the site of the PICC line. The patient remains hemodynamically stable, BP 120/78, afebrile, saturating normal on room air. Case discussed with the RN, TPN discontinued yesterday, patient is started on clear liquid diet. WBC still elevated 25.7, hemoglobin 8.7, hematocrit 27.1, platelet count of 313. We will follow repeat CMP today as potassium insulin drip 0.4 with magnesium 1.7. We will discuss discharge plan with case management, patient may benefit from discharge to LTAC as the patient with persistent leukocytosis and getting broad-spectrum IV antibiotics with meropenem and linezolid IV. We will request speech therapy to evaluate the patient. Per discussion with the RN the patient had low blood glucose in the 50s today, we will hold Lantus, continue only sliding scale, patient with a Troy catheter, we will do bladder training, Doppler of the left upper extremity ordered. at bedside, updated. 08/07 the patient has been seen and examined, remains comfortably in bed, patient remains admitted to the medical floor, remains hemodynamically stable, blood pressure 140/89, afebrile, saturating normal on room air. Yesterday she was noted to have swollen to the left arm with a PICC line , a Doppler was done, no evidence of deep venous thrombosis. Left arm kept elevated, less swelling noted today. TPN discontinued and patient started on clear liquid diet, speech therapy consulted, patient is started on GI soft diet. Leukocytosis today improving, 12.9, hemoglobin dropped to 7.5, hematocrit 24.2, potassium 3.5, magnesium 2.0. We will give potassium chloride 40 mEq p.o. x1, serial CBC q.8 hours, transfuse 1 unit of PRBC if hemoglobin less than seven, we will check stool occult blood. at bedside, updated. REVIEW OF SYSTEMS 12 point ROS negative unless noted in HPI PHYSICAL EXAM GENERAL APPEARANCE: Patient intubated, on mechanical ventilation. NEUROLOGICAL: Cranial nerves II-XII grossly intact. Motor is 5/5 in bilateral upper and lower extremities proximal to distal. No sensory deficits. HEENT: Face is symmetric. Pupils are equal and reactive. Extraocular movements are intact. NECK: Supple. No JVD. No thyromegaly. No submental, submandibular, pre- /postauricular, occipital or supraclavicular lymphadenopathy. CHEST: Normal chest expansion. No Telemetry. LUNGS: Absence of any rales, rhonchi or any wheezing. CARDIOVASCULAR: Regular. S1 and S2 normal. No appreciable rubs, murmurs or gallops. ABDOMEN: Abdominal wound VAC in place : Deferred. No Troy. EXTREMITIES: Non-edematous and not cyanotic. No clubbing. Good capillary refill. SKIN: No skin breakdown. Vital Signs (last 8hr) Date Time Temp Pulse Resp B/P (MAP) Pulse Ox O2 Delivery O2 Flow Rate FiO2 08/07/24 08:11 90 140/89 08/07/24 08:00 97.5 90 17 140/89 96 Room Air 08/07/24 07:08 90 18 N/A Room Air 21 08/07/24 04:22 97.5 91 17 128/75 94 Room Air LABS: Laboratory: Test 08/07/24 06:11 08/07/24 05:16 Range/Units Whole Blood Glucose 74 70-110 MG/DL White Blood Count 12.9 #H 4.8-10.8 K/uL Red Blood Count 2.84 L 4.00-5.50 MIL/uL Hemoglobin 7.5 L 12.0-16.0 g/dL Hematocrit 24.2 L 36-48 % Mean Corpuscular Volume 85.2 79-99 fL Mean Corpuscular Hemoglobin 26.4 L 27.0-33.0 pg Mean Corpuscular Hemoglobin Concent 31.0 L 32.0-36.0 g/dL Red Cell Distribution Width 17.5 H 11.0-15.5 % Platelet Count 331 130-400 K/uL Mean Platelet Volume 11.3 H 7.5-10.5 fL Nucleated Red Blood Cells 0.0 0.0-0.19 % Sodium Level 138 136-145 mmol/L Potassium Level 3.5 3.5-5.1 mmol/L Chloride Level 103 101-111 mmol/L Carbon Dioxide Level 29 21-32 mmol/L Blood Urea Nitrogen 27 H 7-18 mg/dL Creatinine 0.6 0.5-1.0 mg/dL Glomerular Filtration Rate Calc 103 >90 mL/min Random Glucose 80 70-105 mg/dL Lactic Acid Level 1.2 0.8-2.5 mmol/L Total Calcium 8.5 8.5-10.1 mg/dL Phosphorus Level 3.4 2.5-4.9 mg/dL Magnesium Level 2.00 1.80-2.40 mg/dL Total Bilirubin 0.5 0.2-1.0 mg/dL Aspartate Amino Transf (AST/SGOT) 49 H 10-37 U/L Alanine Aminotransferase (ALT/SGPT) 66 12-78 U/L Alkaline Phosphatase 356 H 50-136 U/L Total Protein 4.8 L 6.0-8.3 g/dL Albumin 1.1 L 3.5-5.0 g/dL Current Medications Medications (Trade) Dose Ordered Sig/Alexandra Route PRN Reason Start Time Stop Time Status Last Admin Dose Admin Acetaminophen (TYLenol 325MG TAB) 650 mg Q4H PRN PO TEMPERATURE GREATER THAN 101.5 08/06/24 23:30 09/05/24 23:29 08/07/24 08:16 650 MG Albumin Human 100 ml @ 50 mls/hr AD IV 07/28/24 08:00 07/31/24 07:59 DC Cefepime HCl (MAXipime 2 gm vial) 2 gm Q24H IVPB 07/26/24 22:00 07/27/24 14:55 DC 07/26/24 22:54 2 GM Dexmedetomidine/ Sodium Chloride (PRECEdex 400MCG/ 100ML-NS) 400 mcg PROTOCOL PRN IV agitation 07/29/24 14:00 08/03/24 13:31 DC 07/30/24 01:18 400 MCG Dextrose (D50w) 50 ml AD PRN IV HYPOGLYCEMIA PROTOCOL 07/27/24 16:00 08/26/24 15:59 08/07/24 00:07 50 ML Enoxaparin Sodium (Lovenox) 40 mg DAILY SQ 08/07/24 09:00 09/06/24 08:59 08/07/24 08:14 40 MG Famotidine (Pepcid 20mg Vial) 20 mg Q24H IV 07/25/24 21:00 08/24/24 20:59 08/06/24 21:50 20 MG Fat Emulsion Intravenous 250 ml @ 42 mls/hr QMOFR IV 07/29/24 09:00 08/05/24 16:31 DC 08/05/24 09:35 42 MLS/HR Fentanyl Citrate 100 ml @ 0 mls/hr PROTOCOL IV 07/26/24 13:30 07/27/24 12:04 DC Fentanyl Citrate 100 ml @ 0 mls/hr PROTOCOL IV 07/27/24 12:30 07/29/24 13:42 DC 07/29/24 02:03 5 MLS/HR Fentanyl/Sodium Chloride 250 ml @ 0.1 mls/hr PROTOCOL IV 07/27/24 12:00 07/27/24 12:05 DC Fluconazole/ Sodium Chloride 100 ml @ 100 mls/hr Q24H IV 07/26/24 13:30 08/25/24 13:29 08/06/24 12:49 100 MLS/HR Furosemide (LASix 20MG VIAL) 20 mg Q8H IV 07/28/24 15:30 08/27/24 15:29 08/07/24 06:17 20 MG Glucagon (Glucagon 1mg Kit) 1 mg AD PRN IM HYPOGLYCEMIA PROTOCOL 07/27/24 16:00 08/26/24 15:59 Hydromorphone HCl (DiLAUDid 0.5MG INJ) 0.5 mg Q4H PRN IVP SEVERE PAIN (7-10) 07/29/24 14:00 08/03/24 13:59 DC 08/02/24 11:44 0.5 MG Insulin Glargine (LANtus 100 UNITS/ML 10 ML VIAL) 5 units HS SQ 07/27/24 21:00 07/29/24 09:47 DC 07/28/24 20:48 5 UNITS Insulin Glargine (LANtus 100 UNITS/ML 10 ML VIAL) 15 units BID SQ 07/29/24 21:00 08/06/24 12:06 DC 08/05/24 21:42 15 UNITS Insulin Glargine (LANtus 100 UNITS/ML 10 ML VIAL) 15 units HS SQ 07/29/24 21:00 07/29/24 13:43 DC Insulin Human Regular (humuLIN R 100 UNIT/ML 3ML) INSULIN SLIDING SCAL... Q6H6 SQ 07/26/24 00:00 08/25/24 00:00 08/05/24 12:[address] (AtrovENT UD) 0.5 mg [id number] IH 07/30/24 18:00 08/29/24 17:59 08/06/24 23:28 0.5 MG Linezolid 300 ml @ 150 mls/hr Q12H IV 08/03/24 13:00 08/13/24 12:59 08/07/24 00:14 150 MLS/HR Magnesium Sulfate 50 ml @ 0 mls/hr PROTOCOL IV 08/06/24 13:00 09/05/24 12:59 Magnesium Sulfate 50 ml @ 0 mls/hr PROTOCOL PRN IV hypomagnesemia 07/25/24 18:00 08/06/24 17:19 DC 08/06/24 10:01 0 MLS/HR Meropenem (Merrem 1gm) 1 gm Q12H IVPB 07/27/24 15:30 08/03/24 03:31 DC 08/03/24 03:31 1 GM Meropenem (Merrem 1gm) 1 gm Q12H IVPB 08/03/24 15:30 08/10/24 03:31 08/07/24 05:15 1 GM Metoprolol Tartrate (loprESSOR) 2.5 mg Q12H9 IV 07/31/24 21:00 08/30/24 20:59 08/07/24 08:11 2.5 MG Midazolam HCl 50 ml @ 0 mls/hr PROTOCOL IV 07/26/24 13:30 07/29/24 13:42 DC Nystatin (MycoSTATin 30 GM CREAM) 1 APPL BID TP 07/31/24 21:00 08/30/24 20:59 08/07/24 08:20 1 APPL Ondansetron HCl (zoFRAN 4MG INJ) 4 mg Q6H PRN IVP NAUSEA/VOMITING 07/25/24 18:00 08/24/24 17:59 08/03/24 15:32 4 MG Pharmacy Profile Note (Lace Assessment) 1 each AD MISC 07/27/24 15:30 07/27/24 15:14 DC Pharmacy Profile Note (Lace Assessment) 1 each AD MISC 08/03/24 11:00 08/03/24 11:10 DC Pharmacy Profile Note (Pharmacy Communication) 1 each ONCE MISC 07/27/24 15:00 07/28/24 07:29 DC Pharmacy Profile Note (Pharmacy Communication) 1 each ONCE MISC 08/03/24 11:00 08/03/24 11:47 DC Pharmacy Profile Note (Pharmacy Communication) 1 each ONCE MISC 08/03/24 11:00 08/03/24 11:53 DC Phenol (Sore Throat [place]) 1 spry Q4H PRN PO SORE THROAT 08/01/24 05:00 08/31/24 04:59 08/03/24 10:19 1 SPRY Phenylephrine HCl 100 mg/Sodium Chloride 250 ml @ 0 mls/hr AD PRN IV TITRATE 07/26/24 13:30 08/03/24 13:31 DC 07/30/24 04:41 9.52 MLS/HR Piperacillin Sod/ Tazobactam Sod (Zosyn 3.375gm+NS 50ml) 3.375 gm Q12H IV 07/25/24 20:00 07/25/24 17:27 DC Piperacillin Sod/ Tazobactam Sod (Zosyn 3.375gm+NS 50ml) 3.375 gm Q8H IVPB 07/25/24 19:00 07/26/24 21:40 DC 07/26/24 19:40 3.375 GM Piperacillin Sod/ Tazobactam Sod (Zosyn 3.375gm+NS 50ml) 3.375 gm Q8H IVPB 07/25/24 20:00 07/25/24 18:49 DC Potassium Chloride 100 ml @ 50 mls/hr AD PRN IV POTASSIUM PROTOCOL 07/25/24 18:00 08/24/24 17:59 08/06/24 16:20 50 MLS/HR Potassium Chloride (K-Dur/Klor-Con 20meq) 20 meq AD PRN PO POTASSIUM PROTOCOL 08/06/24 12:30 09/05/24 12:29 08/07/24 09:58 20 MEQ Potassium Chloride (KCl 10% Elixir 20meq/15ml) 20 meq AD PRN PO POTASSIUM PROTOCOL 08/06/24 12:30 09/05/24 12:29 08/06/24 12:49 20 MEQ Propofol 100 ml @ 0 mls/hr AD PRN IV TITRATE 07/26/24 13:30 07/29/24 13:42 DC 07/29/24 02:49 12.2 MLS/HR Sodium Chloride 1,000 ml @ 50 mls/hr Q20H IV 08/04/24 11:30 08/06/24 12:06 DC 08/06/24 09:10 50 MLS/HR Sodium Chloride 1,000 ml @ 125 mls/hr Q8H IV 07/25/24 17:30 07/27/24 16:01 DC 07/27/24 07:58 125 MLS/HR Sodium Chloride (NS 50ml) 50 ml AD IV 07/25/24 17:00 07/25/24 17:29 DC Vancomycin HCl 250 ml @ 125 mls/hr Q12H IV 07/31/24 04:00 08/02/24 04:37 DC 08/01/24 03:10 125 MLS/HR Vancomycin HCl 250 ml @ 125 mls/hr Q12H IV 08/02/24 05:00 08/03/24 11:09 DC 08/02/24 17:22 125 MLS/HR Vancomycin HCl 250 ml @ 125 mls/hr Q24H IV 07/26/24 17:00 07/27/24 15:09 DC 07/26/24 19:55 125 MLS/HR Vancomycin HCl (Vancomycin Protocol) 1 each AD IV 07/25/24 17:00 07/27/24 14:55 DC Vancomycin HCl (Vancomycin Protocol) 1 each AD IV 07/30/24 15:00 08/03/24 11:09 DC Wound Care/ Dressing Products (Venelex Ointment) BID TP 07/31/24 21:00 08/30/24 20:59 08/07/24 08:20 1 GM DIAGNOSTICS / RADIOLOGY: [ ] ASSESSMENT: Septic shock requiring pressors Bacterial peritonitis POA Bowel perforation w/ [id number] S/P exploratory laparotomy with drainage of intra-abdominal abscess/ventral hernia repair/small-bowel resection/NS of adhesions/left open and a wound VAC on 07/26/24 per High risk for ischemic bowel-POA Intractable abdominal pain-POA Acute hypokalemia-POA this is Dehydration-POA SHARMILA not POA Lactic acidosis-POA Hyperglycemia 2/2 uncontrolled diabetes mellitus Primary HTN HX of colitis HX of inflammatory bowel disease (Crohn's Disease) HX of cardiac arrest HX of BLE cellulitis Recent hospitalization for UTI with outpatient Zosyn antibiotic \ PLAN: Patient remains admitted to the medical floor TPN discontinued Patient is started on clear liquid diet, speech therapy consulted, patient on GI soft diet Continue to follow surgical input and recommendation Doppler of the left lower extremity negative for DVT Serial CBC transfuse 1 unit of PRBC if hemoglobin less than seven We will discuss discharge plan with case management. NEURO: Minimize central acting medications as possible. Fall Precautions. Well lighted room through the day and minimize interruptions through the night to prevent acute delirium. PULMONARY: Supplemental 02 as needed BiPAP as necessary, for respiratory distress Titrate Fio2 to keep Spo2 > or = 90% DuoNebs and CPT as needed IS hourly while awake for pulmonary hygiene prn Out of bed to chair as tolerated Maintain aspiration precautions at all times CARDIOVASCULAR: Follow hemodynamics. Vital signs per facility protocol GI & NUTRITION: Continue nutritional support Aspirations precautions Prokinetic agents and laxatives as needed KIDNEYS & ELECTROLYTES: Strict monitoring of intake and output Daily weights Avoid nephrotoxic agents Monitor electrolytes and replace as needed Goal urine output of 30mL/hr or 0.5mL/kg/hr Medications to be dosed according to renal function. Avoid contrast if possible ENDOCRINE: Maintain blood glucose between 100-180 at all times. Insulin sliding scale for blood glucose management Hypoglycemia and hyperglycemia protocol in place INFECTIOUS DISEASE: Trend temperature, WBC and procalcitonin level Follow cultures, deescalate antibiotics as soon as possible. Panculture if new onset fever HEMATOLOGY & COAGULATION: Monitor H&H. Keep Hgb > 7 Transfuse 1 unit of PRBC for Hgb < 7 Transfuse 1 pack of platelets of platelets < 20, 000 Watch for any signs and symptoms of bleeding SKIN: Pressure ulcer prevention per facility protocol Specialty mattress as needed ORTHO/REHAB Continue PT/OT PRN: MEDICATIONS Tylenol 650 mg po every 4 hrs for fever zofran 4 mg IV every 6 hrs for n/v Hydralazine 5 mg IV every 4 hrs systolic pressure > 160 bowel regiment: lactulose 20 gm PO BID PRN constipation Supportive measures: Continue GI and DVT prophylaxis Disposition: Pending improvement in clinical condition All questions answered time spent: > 35 min MICKEY FINNEY MD Aug 07, 2024 10:23
--- NOTE | 2024-08-07 11:10 | PN ---
INFECTIOUS DISEASE PROGRESS NOTE Date of Service: Aug 07, 2024 SUBJECTIVE: Patient was seen and examined at bedside in room 326. Patient is awake, alert and oriented x3. Patient is afebrile, temperature is 97.5 and a WBC 12.9.7. Will continue on Meropenem, linezolid and fluconazole. No reports of nausea or vomiting. Patient performing very poorly with physical therapy and requiring Margarito lift to sit on bedside chair. We will have case management evaluate for referral to SNF for rehab and IV antibiotics. PHYSICAL EXAM EYES: Anicteric. Pupils equal and reactive. HENT: No oral thrush seen, moist Oral mucosa. NECK: Supple, no JVD or thyromegaly. LUNGS: Good air entry. No rales, no rhonchi. CARDIOVASCULAR: S1, S2 regular. No murmur heard. ABDOMEN: Soft, non tender, bowel sounds present, no organomegaly. Abdominal surgical incision with two BYRON drains. CENTRAL NERVOUS SYSTEM: Awake, alert and oriented x3. SKIN: No rashes, no swelling. LYMPHATICS: No peripheral lymphadenopathy. MUSCULOSKELETAL: No joint swelling, erythema or tenderness. Debility. EXTREMITIES: No cyanosis or clubbing. BACK: No deformity, no pressure ulcer. GENITOURINARY: No dysuria or hematuria. Troy catheter. Vital Sign (Last 12 Hours) 08/06/24 08/07/24 08/07/24 08/07/24 23:29 01:09 04:22 07:08 Temp 98.1 97.5 Pulse 74 96 91 90 Resp 18 18 17 18 B/P (MAP) 142/91 128/75 Pulse Ox 98 94 O2 Delivery Room Air Room Air N/A Room Air FiO2 21 08/07/24 08/07/24 08:00 08:11 Temp 97.5 Pulse 90 90 Resp 17 B/P (MAP) 140/89 140/89 Pulse Ox 96 O2 Delivery Room Air l Intake & Output (last 24hrs) 08/06/24 08/06/24 08/07/24 15:00 23:00 07:00 Intake Total 225 ml 50 ml Output Total 350 ml 10 ml Balance 225 ml -300 ml -10 ml LABS: Laboratory: Test 08/07/24 06:11 08/07/24 05:16 Range/Units Whole Blood Glucose 74 70-110 MG/DL White Blood Count 12.9 #H 4.8-10.8 K/uL Red Blood Count 2.84 L 4.00-5.50 MIL/uL Hemoglobin 7.5 L 12.0-16.0 g/dL Hematocrit 24.2 L 36-48 % Mean Corpuscular Volume 85.2 79-99 fL Mean Corpuscular Hemoglobin 26.4 L 27.0-33.0 pg Mean Corpuscular Hemoglobin Concent 31.0 L 32.0-36.0 g/dL Red Cell Distribution Width 17.5 H 11.0-15.5 % Platelet Count 331 130-400 K/uL Mean Platelet Volume 11.3 H 7.5-10.5 fL Nucleated Red Blood Cells 0.0 0.0-0.19 % Sodium Level 138 136-145 mmol/L Potassium Level 3.5 3.5-5.1 mmol/L Chloride Level 103 101-111 mmol/L Carbon Dioxide Level 29 21-32 mmol/L Blood Urea Nitrogen 27 H 7-18 mg/dL Creatinine 0.6 0.5-1.0 mg/dL Glomerular Filtration Rate Calc 103 >90 mL/min Random Glucose 80 70-105 mg/dL Lactic Acid Level 1.2 0.8-2.5 mmol/L Total Calcium 8.5 8.5-10.1 mg/dL Phosphorus Level 3.4 2.5-4.9 mg/dL Magnesium Level 2.00 1.80-2.40 mg/dL Total Bilirubin 0.5 0.2-1.0 mg/dL Aspartate Amino Transf (AST/SGOT) 49 H 10-37 U/L Alanine Aminotransferase (ALT/SGPT) 66 12-78 U/L Alkaline Phosphatase 356 H 50-136 U/L Total Protein 4.8 L 6.0-8.3 g/dL Albumin 1.1 L 3.5-5.0 g/dL ASSESSMENT: Intestinal perforation, s/p closure of exploratory laparotomy on 07/28/2024. Intra-abdominal abscess with polymicrobial infection, status post open drainage 07/26/2024. Peritonitis. Leukocytosis. Anemia requiring blood transfusion. Respiratory failure requiring intubation, s/p extubated. History of colitis. Debility. PLAN: Continue linezolid IV. Continue Meropenem. Continue fluconazole. Continue GI prophylaxis. Continue physical therapy. Continue Nutritional support as recommended by General surgery. Case management evaluation for referral to SNF for rehab and IV antibiotics. This case was reviewed and discussed with my supervising physician and the above assessment and plan was formulated and agreed upon. ATTESTATION BY PHYSICIAN I have seen and examined the patient. I reviewed the documentation, medical decision making, and treatment plan as noted by the mid-level provider above. I agree with the findings and plan of care. MILLIE CHATTERJEE MD, [facility] Aug 07, 2024 11:10
--- NOTE | 2024-08-07 19:32 | NUR ---
PICC LINE DRESSING PICC LINE DRESSING CHANGED. PATIENT TOLERATED WELL. ANSWERED ANY QUESTIONS AND CONCERNS PATIENT HAD. BED SET TO LOWEST POSITION. CALL LIGHT WITHIN REACH.
--- NOTE | 2024-08-07 20:31 | PN ---
[facility] PROGRESS NOTE Date Patient Seen: Aug 07, 2024 Time of Visit: 11:26 Supervising Physician: DR. SESAR BAUMAN Primary Care Physician: [Dr. Villarreal of [facility] ] Outpatient Specialists: [GI: Dr. Solitario ] Inpatient Consults: [Dr. Quintero of surgery ] PROBLEM LIST: Septic shock from below requiring pressors,resolving Bacterial peritonitis POA + Enterococcus Raffinosus and Klebsiella pneumoniae Bowel perforation w/ Pneumoperitoneum-POA S/P exploratory laparotomy with drainage of intra-abdominal abscess/ventral hernia repair/small-bowel resection/lysis of adhesions/left open and a wound VAC on 07/26/24 per Removal of previously placed ABThera wound VAC & Placement of Seprafilm adhesion barrier 07/28/24 per Incarcerated ventral hernia POA Primary repair ventral hernia 07/28/24 Left Lateral Hernia POA Primary repair left flank hernia 07/28/24 Acute cholecystitis, POAopen cholecystectomy on 07/28/24 Acute hypokalemia-POA Dehydration-POA SHARMILA not POA Lactic acidosis-POA Hyperglycemia 2/2 uncontrolled diabetes mellitus Primary HTN HX of colitis HX of inflammatory bowel disease (Crohn's Disease) Recent hospitalization for UTI with outpatient Zosyn antibiotic with Dr. Diaz INTERVAL HISTORY: This is Day 1 open cholecystectomy with removal of previously placed ABTHera wound VAC, placement of ceftriaxone home adhesion barrier, primary repair of left flank hernia and repair of ventral hernia per . no further plans of taking pt back to OR per report. Per RN no major overnight event. Patient is on sedation vacation this morning still 117 to wake up grimaces to movement. Will attempt CPAP this morning. Weaning Jose Armando-Synephrine currently yesterday 0.1 mcg/kg per minute. Lines: Right IJ Cordis, arterial line, OG tube, ET tubes, Troy catheter, DP is. Left BYRON drain 320 mL with red BYRON draining 120 mL. She remains NPO on TPN at 75 mL/hour. Urine output of 3.6 L,-1.9 L balance Patient's problems has been updated of plan of care and verbalizes understanding. He continues IV antibiotics. Intra-abdominal fluid culture growing positive for Klebsiella pneumoniae and Enterococcus Raffinosus. White count is 9.8 similar to yesterday, H&H stable 8.61/28.5 platelet count trending down 76 K today. Creatinine of 0.7 with GFR of 99 kidneys are improved. Magnesium of 1.7 covered per protocol. Blood sugar of 311 mg/dL insulin adjusted. X-ray stable. ET tube 4.4 cm with the ld. No pneumothorax. 07/30/2024: At the time of my evaluation, the patient was lying in bed. She remains intubated and on mechanical vent support. On the monitor, the patient was marginally tachycardic, tachypneic and blood pressure within normal ranges. Laboratory data today showed improved WBC down to 10.6 there was no profound anemia or thrombocytopenia. Chemistry panel showed no major electrolyte derangement or renal parameter changes. No new microbiology data for review today. Chest imaging showed bilateral pneumonic infiltrates and cardiomegaly. No other complaint. 07/31/2024: At the time of my evaluation, the patient was lying in bed. Family member and staff nurse are present at the bedside. Per the staff nurse, no acute events overnight. On the monitor, the patient had no febrile events, no tachycardia or tachypnea. Blood pressure between normal range and she remains on nasal cannula for oxygen supplementation. Laboratory data today , showed no leukocytosis, there was significant anemia 7.3/23.5 and platelet count of 119. No chemistry was collected for today. Imaging for today still shows pulmonary vascular congestion and pneumonic infiltrates bilaterally. Troy catheter remains in place and patient had a documented urinary output of 2700 mL and a net balance of -28.0. No other complaint 08/01/2024: At the time of my evaluation, the patient was lying in bed. Staff nurse reports no acute events overnight. On the monitor, the patient is with borderline tachycardia, no tachypnea and normotensive. She remains on a nasal cannula for oxygen supplementation. Surgical site, is benign. BYRON drain x2 totaling 335 mL out voided output of 4800 mL over the past 24 hours with a net balance of -2585.1. Laboratory data today did show a drop in H&H to 7.1/23.4 and a platelet count of 111. Chemistry panel showed a potassium of 3.2, renal parameters were not of concern. No new microbiology data for review. Chest x- ray today showed bilateral pneumonic infiltrate and a right mid lung atelectasis. There was also borderline cardiomegaly. Currently, the patient remains on antibiotic coverage with meropenem, fluconazole and vancomycin. She is also on nutritional support with TPN. No other complaint. 08/02/2024: At the time of my evaluation, the patient was lying in bed. Staff nurse reports no acute events overnight. The patient is breathing on room air. On the monitor, parameters are unremarkable. Laboratory data showed a hemoglobin of 9.7 and hematocrit of 31.3. Platelet count 166. Chemistry panel was notable for a potassium of 3.2 otherwise unremarkable no new imaging for review today. Currently, the patient remains on TPN for nutritional support and is on antibiotic therapy with Merrem, vanco and fluconazole. No other compl aint. 08/03 patient is evaluated at bedside. Her WBCs significantly increased to 27 then 34 up from eight yesterday. Her hemoglobin has remained stable at 11.2. No fever overnight. Her BYRON drain has normal serous fluid with minimal output since yesterday. She is pending a repeat CT abdomen. General surgery is aware, pending further recommendation. Patient states her pain is actually improved from yesterday. 08/04 patient was evaluated at bedside. She had two episodes of nonbloody emesis yesterday. She remains NPO today and continues on TPN. General surgery has ordered IV fluids. Her WBC his downtrending but still significantly elevated at 30. Patient states her pain is much decreased. No fever reported overnight. Continues on IV antibiotic. 08/05 patient is evaluated at bedside. Her WBCs downtrending currently 223. Hemoglobin is persistently decreasing, from 11.22 days ago to 7.7 today. No signs of bleeding per BYRON drain which has minimal normal serous fluid and Troy bag which has normal colored urine. Continues NPO with TPN. No current fever or abdominal pain. No nausea or vomiting. Continue to follow General surgery recommendation. 08/06 Patient seen and examined at the bedside, she is off TPN, he has no fever, chills, nausea or vomiting, No abdominal pain or diarrhea no new events plan is to repeat labs in am , advance on diet as tolerates. 08/07 Patient is awake, alert, well oriented, not in distress, started on oral intake, denies fever , chills, nausea or vomiting. No chest pain , no more IVF, case management making all arrangement for discharge with IV antibiotics , as per case management and Dr Diaz recommendation she is going to be discharge to [facility], from pulmonary stand point of view no further intervention at this moment, therefore plan is to signs off this case, do not hesitate to contact us if necessary. REVIEW OF SYSTEMS: 12- point system review was carried out, pertinent positive documented above otherwise negative. PHYSICAL EXAM: GENERAL: Critically- ill appearing. HEENT: Sclera non icteric, moist mucosa pupils3 mm echo and sluggish NECK: Supple, no JVD, trachea midline right IJ Cordis LUNGS: Diminished breath sounds bilaterally. No wheezes HEART: Regular rate and rhythm. Normal S1 and S2, without murmurs ABD: Obese abdomen, mid abdomen dressing clean dry and intact. Bilateral BYRON present. EXT: No clubbing cyanosis or edema. Troy in situ NEURO: Awake, alert and follows commands. Vital Signs (last 8hr) Date Time Temp Pulse Resp B/P (MAP) Pulse Ox O2 Delivery O2 Flow Rate FiO2 08/07/24 19:30 97.5 106 18 133/77 95 Room Air 08/07/24 18:41 99 18 08/07/24 18:40 99 18 N/A Room Air 21 08/07/24 16:00 98.1 115 17 124/86 94 Room Air LABS: Hematology Labs: Test 08/07/24 05:16 Range/Units White Blood Count 12.9 #H 4.8-10.8 K/uL Red Blood Count 2.84 L 4.00-5.50 MIL/uL Hemoglobin 7.5 L 12.0-16.0 g/dL Hematocrit 24.2 L 36-48 % Mean Corpuscular Volume 85.2 79-99 fL Mean Corpuscular Hemoglobin 26.4 L 27.0-33.0 pg Mean Corpuscular Hemoglobin Concent 31.0 L 32.0-36.0 g/dL Red Cell Distribution Width 17.5 H 11.0-15.5 % Platelet Count 331 130-400 K/uL Mean Platelet Volume 11.3 H 7.5-10.5 fL Nucleated Red Blood Cells 0.0 0.0-0.19 % Chemistry Labs: Test 08/07/24 18:06 08/07/24 05:16 Range/Units Whole Blood Glucose 140 H 70-110 MG/DL Sodium Level 138 136-145 mmol/L Potassium Level 3.5 3.5-5.1 mmol/L Chloride Level 103 101-111 mmol/L Carbon Dioxide Level 29 21-32 mmol/L Blood Urea Nitrogen 27 H 7-18 mg/dL Creatinine 0.6 0.5-1.0 mg/dL Glomerular Filtration Rate Calc 103 >90 mL/min Random Glucose 80 70-105 mg/dL Lactic Acid Level 1.2 0.8-2.5 mmol/L Total Calcium 8.5 8.5-10.1 mg/dL Phosphorus Level 3.4 2.5-4.9 mg/dL Magnesium Level 2.00 1.80-2.40 mg/dL Total Bilirubin 0.5 0.2-1.0 mg/dL Aspartate Amino Transf (AST/SGOT) 49 H 10-37 U/L Alanine Aminotransferase (ALT/SGPT) 66 12-78 U/L Alkaline Phosphatase 356 H 50-136 U/L Total Protein 4.8 L 6.0-8.3 g/dL Albumin 1.1 L 3.5-5.0 g/dL DIAGNOSTICS / RADIOLOGY RESULTS: [ ] PLAN Lovenox 40 mg sq daily Discharge plan as per primary Sign off this case NEURO: Minimize central acting medications as possible. Maintain fall precautions, adequate lighting during the day PULMONARY: Supplemental 02 as needed. Maintain aspiration precautions at all times CARDIOVASCULAR: Follow hemodynamics. Vital signs per facility protocol GI & NUTRITION: Continue with nutritional support. Continue stool softeners and laxatives as needed. KIDNEYS & ELECTROLYTES: Strict monitoring of intake, output and overall fluid balance. Avoid nephrotoxic medications to the extent possible. Medications to be dosed according to renal function. Monitor electrolytes and replace as needed ENDOCRINE: Maintain blood glucose between 100-180 at all times. Hypoglycemia protocol in place INFECTIOUS DISEASE: Trend temperature, WBC and procalcitonin level Follow cultures, deescalate antibiotics as soon as possible. Panculture if new onset fever ONCOLOGY/HEMATOLOGY/COAGULATION: Monitor for s/s of bleeding Monitor hemoglobin, coagulation studies as needed SKIN: Pressure ulcer prevention per facility protocol Specialty mattress ORTHO/REHAB: Continue PT/OT Prophylaxis: Continue GI and DVT prophylaxis Code Status: Full Resuscitation Disposition: TBD ATTESTATION BY PHYSICIAN Documentation assistance provided by a scribe, information recorded by the scribe was done at my direction and has been reviewed and validated by me." MITUL KABA MD I personally scribed for SESAR BAUMAN MD (JOANA) on 08/07/24 at 20:31. Electronically submitted by Jenelle Landeros ([id number]). I personally scribed for SESAR BAUMAN MD (JOANA) on 08/08/24 at 13:52. Electronically submitted by Jenelle Landeros ([id number]). SESAR BAUMAN MD Aug 07, 2024 20:31
[2024-08-08] VITALS (11 sets, daily range): BP systolic 114–157; BP diastolic 76–98; PULSE 89–103; RESP 17–18; TEMP 97.1–97.7; O2SAT 95–97
--- NOTE | 2024-08-08 06:30 | PN ---
GASTROENTEROLOGY PROGRESS NOTE Date of Visit: Aug 08, 2024 Time of Visit: 06:29 Events / Notes: [ ] Review of Systems: CONSTITUTIONAL: No malaise or change in sensation of wellbeing. ENMT: No rhinorrhea, otorrhea, sinus pain, ear ache. CARDIOVASCULAR: No angina, palpitations, orthopnea or paroxysmal dyspnea. RESPIRATORY: No SOB. GASTROINTESTINAL: No abdominal pain, nausea, vomiting, diarrhea, hematemesis, melena or change in the patient's habitual bowel movements consistency/number. GENITOURINARY: No dysuria, hematuria or change in bladder continence. MUSCULOSKELETAL: No new muscle pain or decrease in muscular strength. No new joint swelling, redness or tenderness. SKIN: No new rash. Physical Exam: GEN: Awake, alert, oriented in person, time and place, and in no acute distress. HEENT: No sinus tenderness. Tympanic membranes were not examined. No rhinorrhea. Oral pharyngeal mucosa is pink, moist and within normal limits. Neck is supple with no cervical lymphadenopathy, thyromegaly or JVD. CHEST: Inspection, palpation and percussion of the chest were unremarkable. Lung auscultation revealed normal breath sounds bilaterally. CARDIAC: PMI is within normal limits. Heart sounds are regular. Normal S1, S2. No gallop or murmur. ABD: Soft, non-tender and not distended. No peritoneal signs on palpation. No organomegaly. Normal bowel sounds. EXT: No cyanosis or clubbing. No edema. SKIN: Intact. No rashes. JOINTS: No evidence of synovitis or acute arthritis. NEURO: Alert and oriented to name, place and person. Cranial nerve examination is unremarkable. No focal motor deficits. Normal speech. Gait is normal. Strength is normal. Vital Signs (last 8hr) Date Time Temp Pulse Resp B/P (MAP) Pulse Ox O2 Delivery O2 Flow Rate FiO2 08/08/24 04:00 97.2 98 18 144/76 94 Room Air 08/07/24 23:30 97.3 99 18 130/81 94 Room Air 08/07/24 23:04 96 18 Laboratory: [ ] Laboratory: Test 08/08/24 05:56 08/07/24 05:16 Range/Units Whole Blood Glucose 165 H 70-110 MG/DL White Blood Count 12.9 #H 4.8-10.8 K/uL Red Blood Count 2.84 L 4.00-5.50 MIL/uL Hemoglobin 7.5 L 12.0-16.0 g/dL Hematocrit 24.2 L 36-48 % Mean Corpuscular Volume 85.2 79-99 fL Mean Corpuscular Hemoglobin 26.4 L 27.0-33.0 pg Mean Corpuscular Hemoglobin Concent 31.0 L 32.0-36.0 g/dL Red Cell Distribution Width 17.5 H 11.0-15.5 % Platelet Count 331 130-400 K/uL Mean Platelet Volume 11.3 H 7.5-10.5 fL Nucleated Red Blood Cells 0.0 0.0-0.19 % Sodium Level 138 136-145 mmol/L Potassium Level 3.5 3.5-5.1 mmol/L Chloride Level 103 101-111 mmol/L Carbon Dioxide Level 29 21-32 mmol/L Blood Urea Nitrogen 27 H 7-18 mg/dL Creatinine 0.6 0.5-1.0 mg/dL Glomerular Filtration Rate Calc 103 >90 mL/min Random Glucose 80 70-105 mg/dL Lactic Acid Level 1.2 0.8-2.5 mmol/L Total Calcium 8.5 8.5-10.1 mg/dL Phosphorus Level 3.4 2.5-4.9 mg/dL Magnesium Level 2.00 1.80-2.40 mg/dL Total Bilirubin 0.5 0.2-1.0 mg/dL Aspartate Amino Transf (AST/SGOT) 49 H 10-37 U/L Alanine Aminotransferase (ALT/SGPT) 66 12-78 U/L Alkaline Phosphatase 356 H 50-136 U/L Total Protein 4.8 L 6.0-8.3 g/dL Albumin 1.1 L 3.5-5.0 g/dL Current Medications Medications (Trade) Dose Ordered Sig/Alexandra Route PRN Reason Start Time Stop Time Status Last Admin Dose Admin Acetaminophen (TYLenol 325MG TAB) 650 mg Q4H PRN PO TEMPERATURE GREATER THAN 101.5 08/06/24 23:30 09/05/24 23:29 08/07/24 08:16 650 MG Albumin Human 100 ml @ 50 mls/hr AD IV 07/28/24 08:00 07/31/24 07:59 DC Cefepime HCl (MAXipime 2 gm vial) 2 gm Q24H IVPB 07/26/24 22:00 07/27/24 14:55 DC 07/26/24 22:54 2 GM Dexmedetomidine/ Sodium Chloride (PRECEdex 400MCG/ 100ML-NS) 400 mcg PROTOCOL PRN IV agitation 07/29/24 14:00 08/03/24 13:31 DC 07/30/24 01:18 400 MCG Dextrose (D50w) 50 ml AD PRN IV HYPOGLYCEMIA PROTOCOL 07/27/24 16:00 08/26/24 15:59 08/07/24 00:07 50 ML Enoxaparin Sodium (Lovenox) 40 mg DAILY SQ 08/07/24 09:00 09/06/24 08:59 08/07/24 08:14 40 MG Famotidine (Pepcid 20mg Vial) 20 mg Q24H IV 07/25/24 21:00 08/24/24 20:59 08/07/24 21:35 20 MG Fat Emulsion Intravenous 250 ml @ 42 mls/hr QMOFR IV 07/29/24 09:00 08/05/24 16:31 DC 08/05/24 09:35 42 MLS/HR Fentanyl Citrate 100 ml @ 0 mls/hr PROTOCOL IV 07/26/24 13:30 07/27/24 12:04 DC Fentanyl Citrate 100 ml @ 0 mls/hr PROTOCOL IV 07/27/24 12:30 07/29/24 13:42 DC 07/29/24 02:03 5 MLS/HR Fentanyl/Sodium Chloride 250 ml @ 0.1 mls/hr PROTOCOL IV 07/27/24 12:00 07/27/24 12:05 DC Fluconazole/ Sodium Chloride 100 ml @ 100 mls/hr Q24H IV 07/26/24 13:30 08/25/24 13:29 08/07/24 12:43 100 MLS/HR Furosemide (LASix 20MG VIAL) 20 mg Q8H IV 07/28/24 15:30 08/27/24 15:29 08/07/24 23:34 20 MG Glucagon (Glucagon 1mg Kit) 1 mg AD PRN IM HYPOGLYCEMIA PROTOCOL 07/27/24 16:00 08/26/24 15:59 Hydromorphone HCl (DiLAUDid 0.5MG INJ) 0.5 mg Q4H PRN IVP SEVERE PAIN (7-10) 07/29/24 14:00 08/03/24 13:59 DC 08/02/24 11:44 0.5 MG Insulin Glargine (LANtus 100 UNITS/ML 10 ML VIAL) 5 units HS SQ 07/27/24 21:00 07/29/24 09:47 DC 07/28/24 20:48 5 UNITS Insulin Glargine (LANtus 100 UNITS/ML 10 ML VIAL) 15 units BID SQ 07/29/24 21:00 08/06/24 12:06 DC 08/05/24 21:42 15 UNITS Insulin Glargine (LANtus 100 UNITS/ML 10 ML VIAL) 15 units HS SQ 07/29/24 21:00 07/29/24 13:43 DC Insulin Human Regular (humuLIN R 100 UNIT/ML 3ML) INSULIN SLIDING SCAL... Q6H6 SQ 07/26/24 00:00 08/25/24 00:00 08/05/24 12:17 2 UNIT Ipratropium [place] (AtrovENT UD) 0.5 mg [id number] IH 07/30/24 18:00 08/29/24 17:59 08/07/24 23:03 0.5 MG Linezolid 300 ml @ 150 mls/hr Q12H IV 08/03/24 13:00 08/13/24 12:59 08/08/24 01:08 150 MLS/HR Magnesium Sulfate 50 ml @ 0 mls/hr PROTOCOL IV 08/06/24 13:00 09/05/24 12:59 Magnesium Sulfate 50 ml @ 0 mls/hr PROTOCOL PRN IV hypomagnesemia 07/25/24 18:00 08/06/24 17:19 DC 08/06/24 10:01 0 MLS/HR Meropenem (Merrem 1gm) 1 gm Q12H IVPB 07/27/24 15:30 08/03/24 03:31 DC 08/03/24 03:31 1 GM Meropenem (Merrem 1gm) 1 gm Q12H IVPB 08/03/24 15:30 08/10/24 03:31 08/08/24 03:32 1 GM Metoprolol Tartrate (loprESSOR) 2.5 mg Q12H9 IV 07/31/24 21:00 08/30/24 20:59 08/07/24 21:35 2.5 MG Midazolam HCl 50 ml @ 0 mls/hr PROTOCOL IV 07/26/24 13:30 07/29/24 13:42 DC Nystatin (MycoSTATin 30 GM CREAM) 1 APPL BID TP 07/31/24 21:00 08/30/24 20:59 08/07/24 21:36 1 APPL Ondansetron HCl (zoFRAN 4MG INJ) 4 mg Q6H PRN IVP NAUSEA/VOMITING 07/25/24 18:00 08/24/24 17:59 08/03/24 15:32 4 MG Pharmacy Profile Note (Lace Assessment) 1 each AD MISC 07/27/24 15:30 07/27/24 15:14 DC Pharmacy Profile Note (Lace Assessment) 1 each AD MISC 08/03/24 11:00 08/03/24 11:10 DC Pharmacy Profile Note (Pharmacy Communication) 1 each ONCE MISC 07/27/24 15:00 07/28/24 07:29 DC Pharmacy Profile Note (Pharmacy Communication) 1 each ONCE MISC 08/03/24 11:00 08/03/24 11:47 DC Pharmacy Profile Note (Pharmacy Communication) 1 each ONCE MISC 08/03/24 11:00 08/03/24 11:53 DC Phenol (Sore Throat [place]) 1 spry Q4H PRN PO SORE THROAT 08/01/24 05:00 08/31/24 04:59 08/03/24 10:19 1 SPRY Phenylephrine HCl 100 mg/Sodium Chloride 250 ml @ 0 mls/hr AD PRN IV TITRATE 07/26/24 13:30 08/03/24 13:31 DC 07/30/24 04:41 9.52 MLS/HR Piperacillin Sod/ Tazobactam Sod (Zosyn 3.375gm+NS 50ml) 3.375 gm Q12H IV 07/25/24 20:00 07/25/24 17:27 DC Piperacillin Sod/ Tazobactam Sod (Zosyn 3.375gm+NS 50ml) 3.375 gm Q8H IVPB 07/25/24 19:00 07/26/24 21:40 DC 07/26/24 19:40 3.375 GM Piperacillin Sod/ Tazobactam Sod (Zosyn 3.375gm+NS 50ml) 3.375 gm Q8H IVPB 07/25/24 20:00 07/25/24 18:49 DC Potassium Chloride 100 ml @ 50 mls/hr AD PRN IV POTASSIUM PROTOCOL 07/25/24 18:00 08/24/24 17:59 08/06/24 16:20 50 MLS/HR Potassium Chloride (K-Dur/Klor-Con 20meq) 20 meq AD PRN PO POTASSIUM PROTOCOL 08/06/24 12:30 09/05/24 12:29 08/07/24 15:14 20 MEQ Potassium Chloride (KCl 10% Elixir 20meq/15ml) 20 meq AD PRN PO POTASSIUM PROTOCOL 08/06/24 12:30 09/05/24 12:29 08/06/24 12:49 20 MEQ Propofol 100 ml @ 0 mls/hr AD PRN IV TITRATE 07/26/24 13:30 07/29/24 13:42 DC 07/29/24 02:49 12.2 MLS/HR Sodium Chloride 1,000 ml @ 50 mls/hr Q20H IV 08/04/24 11:30 08/06/24 12:06 DC 08/06/24 09:10 50 MLS/HR Sodium Chloride 1,000 ml @ 125 mls/hr Q8H IV 07/25/24 17:30 07/27/24 16:01 DC 07/27/24 07:58 125 MLS/HR Sodium Chloride (NS 50ml) 50 ml AD IV 07/25/24 17:00 07/25/24 17:29 DC Vancomycin HCl 250 ml @ 125 mls/hr Q12H IV 07/31/24 04:00 08/02/24 04:37 DC 08/01/24 03:10 125 MLS/HR Vancomycin HCl 250 ml @ 125 mls/hr Q12H IV 08/02/24 05:00 08/03/24 11:09 DC 08/02/24 17:22 125 MLS/HR Vancomycin HCl 250 ml @ 125 mls/hr Q24H IV 07/26/24 17:00 07/27/24 15:09 DC 07/26/24 19:55 125 MLS/HR Vancomycin HCl (Vancomycin Protocol) 1 each AD IV 07/25/24 17:00 07/27/24 14:55 DC Vancomycin HCl (Vancomycin Protocol) 1 each AD IV 07/30/24 15:00 08/03/24 11:09 DC Wound Care/ Dressing Products (Venelex Ointment) BID TP 07/31/24 21:00 08/30/24 20:59 08/07/24 21:36 1 GM Diagnostics / Radiology: [COPY/PASTE HERE IF NO REPORTS PLEASE DELETE SECTION] Assessment: Abnormal imaging with viscous perforation Plan: Follow surgery recommendations ROSANA JIMENEZ MVA OPERATOR Aug 08, 2024 06:30
[2024-08-08 06:59] LABS: ALBUMIN 1.2 g/dL (3.5-5.0); BILIRUBIN,TOTAL 0.5 mg/dL (0.2-1.0); CREATININE 0.9 mg/dL (0.5-1.0); MAGNESIUM 1.7 mg/dL (1.80-2.40); POTASSIUM 3.5 mmol/L (3.5-5.1); TOTAL PROTEIN, SERUM 4.7 g/dL (6.0-8.3)
--- NOTE | 2024-08-08 11:26 | PN ---
GENERAL SURGERY PROGRESS NOTE DATE OF SERVICE: Aug 08, 2024 TIME OF SERVICE: 11:26 PROBLEM LISTS: [ ] INTERVAL HISTORY: [ ] PHYSICAL EXAMINATION: GENERAL: [Patient is lying comfortably in bed, not in any obvious distress.] HEAD: [Normal with no signs of head trauma.] EYES: [Not pale not jaundiced afebrile to touch.] ENT: [ Normal.] NECK: [Supple,no tenderness,no lymphadenopathy,no masses,no thyromegaly ,no bruits, no JVD.] LUNGS: [Clear breath sounds bilaterally. No wheezes, rales, or rhonchi.] HEART: [Regular rate and rhythm. Normal S1 and S2, without murmurs, rub or gallop.] VASC: [No edema. Peripheral pulses normal and equal in all extremities.] ABD: [Bowel sounds present,soft, RUQ tender, no masses, no organomegaly.] : [Normal, no suprapubic tenderness.] LYMPH: [No lymphadenopathy noted.] EXT: [ Warm soft, non tender.] SKIN: [ No rashes or lesions.] NEURO: [ Awake Alert and oriented x3.] LABORATORY: [ ] Hematology Labs: Test 08/07/24 05:16 Range/Units White Blood Count 12.9 #H 4.8-10.8 K/uL Red Blood Count 2.84 L 4.00-5.50 MIL/uL Hemoglobin 7.5 L 12.0-16.0 g/dL Hematocrit 24.2 L 36-48 % Mean Corpuscular Volume 85.2 79-99 fL Mean Corpuscular Hemoglobin 26.4 L 27.0-33.0 pg Mean Corpuscular Hemoglobin Concent 31.0 L 32.0-36.0 g/dL Red Cell Distribution Width 17.5 H 11.0-15.5 % Platelet Count 331 130-400 K/uL Mean Platelet Volume 11.3 H 7.5-10.5 fL Nucleated Red Blood Cells 0.0 0.0-0.19 % Chemistry Labs: Test 08/08/24 06:15 08/08/24 05:56 08/07/24 05:16 Range/Units Sodium Level 141 136-145 mmol/L Potassium Level 3.5 3.5-5.1 mmol/L Chloride Level 105 101-111 mmol/L Carbon Dioxide Level 27 21-32 mmol/L Blood Urea Nitrogen 26 H 7-18 mg/dL Creatinine 0.9 0.5-1.0 mg/dL Glomerular Filtration Rate Calc 73 >90 mL/min Random Glucose 150 H 70-105 mg/dL Total Calcium 8.1 L 8.5-10.1 mg/dL Magnesium Level 1.70 L 1.80-2.40 mg/dL Total Bilirubin 0.5 0.2-1.0 mg/dL Aspartate Amino Transf (AST/SGOT) 29 10-37 U/L Alanine Aminotransferase (ALT/SGPT) 49 12-78 U/L Alkaline Phosphatase 370 H 50-136 U/L Total Protein 4.7 L 6.0-8.3 g/dL Albumin 1.2 L 3.5-5.0 g/dL Whole Blood Glucose 165 H 70-110 MG/DL Lactic Acid Level 1.2 0.8-2.5 mmol/L Phosphorus Level 3.4 2.5-4.9 mg/dL DIAGNOSTICS / RADIOLOGY: [Copy/Paste Echos/Imaging Report here] ASSESSMENT: [] PLAN: Advance diet PT/OT ambulate caseworker protective services for LTAC please FERNANDO CONTRERAS MD Aug 08, 2024 11:26
--- NOTE | 2024-08-08 12:06 | PN ---
[facility] PROGRESS NOTE Date of Service: Aug 08, 2024 Time of Service: 12:05 SUBJECTIVE: 59-year-old female the past medical history of hypertension who presented to the hospital secondary to abdominal pain. Patient stated for the past 3-4 days she has been having increasing abdominal pain with abdominal distention. She was feeling nauseated and had episodes of emesis at home. She denied any hematemesis, melena, hematochezia. Patient was previously hospitalized in [facility] around one month ago secondary to colitis. GI was consulted during admission and patient underwent colonoscopy with findings showing severe inflammation of the entire colon concerning for pancolitis. She was treated with IV steroids and and was to start patient on Remicade as outpatient. She denied any fever, chills, diarrhea. She was going to follow up with GI as outpatient on 07/26/24 but had worsening pain which caused her to come to the hospital for further evaluation. Labs in the ED were notable for white count of 10.3, hemoglobin was 12.8, platelet count was 363 K, sodium was 138, potassium was 2.8, creatinine is 1.0, blood glucose was 269, lactic acid on presentation was 8.[address] abdomen pelvis which showed free intraperitoneal air concerning for bowel perforation. There is a anterior ventral wall hernia with bowel content and air collection and fat stranding concerning for bowel perforation. Her colon was also noted to be inflamed. CT was performed without contrast. 07/26 BP 135/83, tachycardic 102, saturating 100% 2 L nasal cannula. CBC shows hemoglobin 11.0, hematocrit 35.9, WBC 18.8, platelet count of 203. Sodium 141, potassium 3.7, BUN of 29, creatinine slightly worse today at 1.2. ABG with pH 7.51, pCO2 of 28, PO2 62.6, bicarb of 22.5. Serology to include influenza, SARS and group A negative. Results of chest x-ray pending. Patient is scheduled to be taken to the OR today. 07/27 the patient remains admitted to the intensive care unit, intubated, on mechanical ventilation, status post exploratory laparotomy, postoperative day one, case discussed with the RN, patient on propofol, Jose Armando-Synephrine, wound VAC to the abdomen in place, noted to have right IJ line in place. Getting broad- spectrum IV antibiotics. Blood pressure 130/79, heart rate of 83, saturating 100% on mechanical ventilation, FiO2 40%. Leukocytosis is worse today at 28.1, drop in hemoglobin to 9.7, hematocrit 30.8, with a platelet count of 148. Potassium level 3.6, magnesium 1.6. Lactic acid from 8.2 down to 1.8 ABG with pH 7.4, pCO2 34, PO2 145, bicarb of 20. Chest x-ray shows bilateral lower lung infiltrates. Family at Bedside, updated 07/28 the patient has been seen and examined in the intensive care unit, she remains intubated, mechanical ventilation, on fentanyl, propofol and Jose Armando- Synephrine, getting broad-spectrum antibiotics, BP 112/84, afebrile, saturating 100% on mechanical ventilation, FiO2 40%. CBC with a hemoglobin 8.4, hematocrit 27.8, WBC of 16.3, platelet count of 89. Patient is status post exploratory laparotomy with drainage of intra-abdominal abscess/ventral hernia repair/small- bowel resection/NS of adhesions/left open and wound VAC on 07/23 05/28 by General surgery. Results of septic workup reviewed, Gram-negative rods. Patient with a possible ischemic colitis, plan to take the patient back to the operating room for further exploration. 07/29 Pt seen at bedside, no acute events overnight. She is s/p ex-lap with cholecystectomy. Currently on pressors, will wean as able. Remains intubated, PEEP 5, FiO2 30%, will continue with daily sedation vacations. She is mildly tachycardic. She is NPO, continue TPN per general surgery. WBC increased from 16.3 up to 16.8, Hgb improved from 8.4 up to 8.6, platelets decreased from 89 do wn to 76 07/30 Pt seen at bedside, no acute events overnight. She is s/p ex-lap with small bowel resection, appendectomy and drainage of intraabdominal abscess with wound vac post op day 4, repeat ex-lap with cholecystectomy, repair of left flank and ventral hernias post op day 2. Currently on pressors, will wean as able. Remains intubated, PEEP 5, FiO2 30%, she was on sedation vacation, in no acute distress, possible extubation today, will defer to critical care. She is NPO, continue TPN per general surgery. WBC improved from 16.8 down to 10.6, Hgb stable at 8.3, similar to yesterday, platelets improved from 76 up to 90, remai nder of her labs are relatively unremarkable. 07/31 patient seen at bedside, no acute events overnight. She is status post ex lap with small-bowel resection, appendectomy and drainage of intra-abdominal abscess with wound VAC postop day five, repeat ex lap with cholecystectomy, repair of left flank and ventral hernias postop day three. She has been successfully extubated, we will continue to try and wean pressors. Hemoglobin stable at 7.2, similar to yesterday, platelets decreased from 119-98, potassium mildly low at 3.2, we will be repleted according to protocol, remainder of her labs are relatively unremarkable. 08/02 patient seen at bedside, no acute events overnight. She is status post ex lap with small-bowel resection, appendectomy and drainage of intra-abdominal abscess with wound VAC postop day 6 repeat ex lap with cholecystectomy, repair of left flank and ventral hernias postop day 4. She has been successfully extubated, and weaned off pressors. She was transfused yesterday, Hgb improved from 6.9 up to 9.7, platelets improved to 166, potassium mildly low at 3.2, we will be repleted according to protocol, remainder of her labs are relatively unremarkable. She continues on TPN, diet to be addressed by general surgery. Only complaint is continued xuan-incisional pain 08/03 patient seen at bedside, no acute events overnight. At bedside she is in no acute distress, she has no complaints. She is status post ex lap with small- bowel resection, appendectomy and drainage of intra-abdominal abscess with wound VAC postop day 7 repeat ex lap with cholecystectomy, repair of left flank and ventral hernias postop day 5. WBC increased from 8.0 up to 27.1, this seemed to be and anomaly so a repeat CBC was ordered and WBC increased again to 34.4. Patient has been bolused 1 L of LR, repeat lactic acid was ordered and was mildly elevated at 2.5, wounds were examined at bedside and found to be clean dry and intact with no drainage or erythema. The BYRON drains are still draining serosanguineous fluid there does not appear to be sick succus suggesting bowel perforation. Discussed case with General surgery and Infectious Disease, we agreed to order a CT scan of the abdomen/pelvis to determine if there is a new abscess forming. Patient has not had watery bowel movements to suggest C diff and she is already on fluconazole. Hemoglobin increased from 8.7 up to 11.2, remainder of her labs are relatively unremarkable. Antibiotics were adjusted to Zyvox and meropenem. Further recommendations per Infectious Disease and General surgery. 08/04 patient seen at bedside, no acute events overnight. She has no complaints at bedside, reports her pain has improved today. She was made NPO yesterday after she vomited, we will resume clear liquid diet per General surgery recommendations. She is hemodynamically stable saturating well on room air, her WBC improved from 34.4 down to 30.8, hemoglobin decreased from 11.2 down to 8.6, potassium decreased from 4.1 down to 3.2, remainder of her labs are relatively unremarkable. Pt has been referred for LTAC, follow up with case management 08/05 patient is seen and examined, comfortable in bed, following commands, nutri tional support via TPN, BP 123/75, heart rate of 103, afebrile, saturating 97% room air. CBC shows a hemoglobin of 7.7, hematocrit 24.6, WBC 23.2, platelet count of 266. Sodium 137, potassium 3.4, BUN of 49, creatinine 0.7. The patient remains NPO. We will recheck CBC, transfuse 1 unit of PRBC if hemoglobin less than seven, replace electrolytes IV per protocol, continue to follow surgical input and recommendation, pending LTAC. Patient to continue broad-spectrum IV antibiotics with the meropenem, linezolid. Family at bedside, updated 08/06 the patient has been seen and examined during rounding, during my visit physical therapy evaluated the patient, noted to have swollen to the left upper extremity at the site of the PICC line. The patient remains hemodynamically stable, BP 120/78, afebrile, saturating normal on room air. Case discussed with the RN, TPN discontinued yesterday, patient is started on clear liquid diet. WBC still elevated 25.7, hemoglobin 8.7, hematocrit 27.1, platelet count of 313. We will follow repeat CMP today as potassium insulin drip 0.4 with magnesium 1.7. We will discuss discharge plan with case management, patient may benefit from discharge to LTAC as the patient with persistent leukocytosis and getting broad-spectrum IV antibiotics with meropenem and linezolid IV. We will request speech therapy to evaluate the patient. Per discussion with the RN the patient had low blood glucose in the 50s today, we will hold Lantus, continue only sliding scale, patient with a Troy catheter, we will do bladder training, Doppler of the left upper extremity ordered. at bedside, updated. 08/07 the patient has been seen and examined, remains comfortably in bed, patient remains admitted to the medical floor, remains hemodynamically stable, blood pressure 140/89, afebrile, saturating normal on room air. Yesterday she was noted to have swollen to the left arm with a PICC line , a Doppler was done, no evidence of deep venous thrombosis. Left arm kept elevated, less swelling noted today. TPN discontinued and patient started on clear liquid diet, speech therapy consulted, patient is started on GI soft diet. Leukocytosis today improving, 12.9, hemoglobin dropped to 7.5, hematocrit 24.2, potassium 3.5, magnesium 2.0. We will give potassium chloride 40 mEq p.o. x1, serial CBC q.8 hours, transfuse 1 unit of PRBC if hemoglobin less than seven, we will check stool occult blood. at bedside, updated. 08/08 patient is seen and examined at bedside, case discussed with the RN, no acute events overnight, blood pressure 156/86, heart rate of 102, afebrile, saturating normal on room air. Sodium 141, potassium 3.5, BUN of 26, 0.9, magnesium 1.7, we will give magnesium sulfate 2 g IV x1, follow CBC, transfuse as needed. REVIEW OF SYSTEMS 12 point ROS negative unless noted in HPI PHYSICAL EXAM GENERAL APPEARANCE: Patient intubated, on mechanical ventilation. NEUROLOGICAL: Cranial nerves II-XII grossly intact. Motor is 5/5 in bilateral upper and lower extremities proximal to distal. No sensory deficits. HEENT: Face is symmetric. Pupils are equal and reactive. Extraocular movements are intact. NECK: Supple. No JVD. No thyromegaly. No submental, submandibular, pre- /postauricular, occipital or supraclavicular lymphadenopathy. CHEST: Normal chest expansion. No Telemetry. LUNGS: Absence of any rales, rhonchi or any wheezing. CARDIOVASCULAR: Regular. S1 and S2 normal. No appreciable rubs, murmurs or gallops. ABDOMEN: Abdominal wound VAC in place : Deferred. No Troy. EXTREMITIES: Non-edematous and not cyanotic. No clubbing. Good capillary refill. SKIN: No skin breakdown. Vital Signs (last 8hr) Date Time Temp Pulse Resp B/P (MAP) Pulse Ox O2 Delivery O2 Flow Rate FiO2 08/08/24 11:46 102 18 08/08/24 08:14 95 157/86 08/08/24 08:00 97.5 100 18 157/86 95 Room Air 08/08/24 06:49 103 18 N/A Room Air 21 08/08/24 06:49 103 18 LABS: Laboratory: Test 08/08/24 11:46 08/08/24 06:15 08/07/24 05:16 Range/Units Whole Blood Glucose 149 H 70-110 MG/DL Sodium Level 141 136-145 mmol/L Potassium Level 3.5 3.5-5.1 mmol/L Chloride Level 105 101-111 mmol/L Carbon Dioxide Level 27 21-32 mmol/L Blood Urea Nitrogen 26 H 7-18 mg/dL Creatinine 0.9 0.5-1.0 mg/dL Glomerular Filtration Rate Calc 73 >90 mL/min Random Glucose 150 H 70-105 mg/dL Total Calcium 8.1 L 8.5-10.1 mg/dL Magnesium Level 1.70 L 1.80-2.40 mg/dL Total Bilirubin 0.5 0.2-1.0 mg/dL Aspartate Amino Transf (AST/SGOT) 29 10-37 U/L Alanine Aminotransferase (ALT/SGPT) 49 12-78 U/L Alkaline Phosphatase 370 H 50-136 U/L Total Protein 4.7 L 6.0-8.3 g/dL Albumin 1.2 L 3.5-5.0 g/dL White Blood Count 12.9 #H 4.8-10.8 K/uL Red Blood Count 2.84 L 4.00-5.50 MIL/uL Hemoglobin 7.5 L 12.0-16.0 g/dL Hematocrit 24.2 L 36-48 % Mean Corpuscular Volume 85.2 79-99 fL Mean Corpuscular Hemoglobin 26.4 L 27.0-33.0 pg Mean Corpuscular Hemoglobin Concent 31.0 L 32.0-36.0 g/dL Red Cell Distribution Width 17.5 H 11.0-15.5 % Platelet Count 331 130-400 K/uL Mean Platelet Volume 11.3 H 7.5-10.5 fL Nucleated Red Blood Cells 0.0 0.0-0.19 % Lactic Acid Level 1.2 0.8-2.5 mmol/L Phosphorus Level 3.4 2.5-4.9 mg/dL Current Medications Medications (Trade) Dose Ordered Sig/Alexandra Route PRN Reason Start Time Stop Time Status Last Admin Dose Admin Acetaminophen (TYLenol 325MG TAB) 650 mg Q4H PRN PO TEMPERATURE GREATER THAN 101.5 08/06/24 23:30 09/05/24 23:29 08/07/24 08:16 650 MG Albumin Human 100 ml @ 50 mls/hr AD IV 07/28/24 08:00 07/31/24 07:59 DC Cefepime HCl (MAXipime 2 gm vial) 2 gm Q24H IVPB 07/26/24 22:00 07/27/24 14:55 DC 07/26/24 22:54 2 GM Dexmedetomidine/ Sodium Chloride (PRECEdex 400MCG/ 100ML-NS) 400 mcg PROTOCOL PRN IV agitation 07/29/24 14:00 08/03/24 13:31 DC 07/30/24 01:18 400 MCG Dextrose (D50w) 50 ml AD PRN IV HYPOGLYCEMIA PROTOCOL 07/27/24 16:00 08/26/24 15:59 08/07/24 00:07 50 ML Enoxaparin Sodium (Lovenox) 40 mg DAILY SQ 08/07/24 09:00 09/06/24 08:59 08/08/24 08:13 40 MG Famotidine (Pepcid 20mg Vial) 20 mg Q24H IV 07/25/24 21:00 08/24/24 20:59 08/07/24 21:35 20 MG Fat Emulsion Intravenous 250 ml @ 42 mls/hr QMOFR IV 07/29/24 09:00 08/05/24 16:31 DC 08/05/24 09:35 42 MLS/HR Fentanyl Citrate 100 ml @ 0 mls/hr PROTOCOL IV 07/26/24 13:30 07/27/24 12:04 DC Fentanyl Citrate 100 ml @ 0 mls/hr PROTOCOL IV 07/27/24 12:30 07/29/24 13:42 DC 07/29/24 02:03 5 MLS/HR Fentanyl/Sodium Chloride 250 ml @ 0.1 mls/hr PROTOCOL IV 07/27/24 12:00 07/27/24 12:05 DC Fluconazole/ Sodium Chloride 100 ml @ 100 mls/hr Q24H IV 07/26/24 13:30 08/25/24 13:29 08/07/24 12:43 100 MLS/HR Furosemide (LASix 20MG VIAL) 20 mg Q8H IV 07/28/24 15:30 08/27/24 15:29 08/08/24 08:14 20 MG Glucagon (Glucagon 1mg Kit) 1 mg AD PRN IM HYPOGLYCEMIA PROTOCOL 07/27/24 16:00 08/26/24 15:59 Hydromorphone HCl (DiLAUDid 0.5MG INJ) 0.5 mg Q4H PRN IVP SEVERE PAIN (7-10) 07/29/24 14:00 08/03/24 13:59 DC 08/02/24 11:44 0.5 MG Insulin Glargine (LANtus 100 UNITS/ML 10 ML VIAL) 5 units HS SQ 07/27/24 21:00 07/29/24 09:47 DC 07/28/24 20:48 5 UNITS Insulin Glargine (LANtus 100 UNITS/ML 10 ML VIAL) 15 units BID SQ 07/29/24 21:00 08/06/24 12:06 DC 08/05/24 21:42 15 UNITS Insulin Glargine (LANtus 100 UNITS/ML 10 ML VIAL) 15 units HS SQ 07/29/24 21:00 07/29/24 13:43 DC Insulin Human Regular (humuLIN R 100 UNIT/ML 3ML) INSULIN SLIDING SCAL... Q6H6 SQ 07/26/24 00:00 08/25/24 00:00 08/05/24 12:17 2 UNIT Ipratropium [place] (AtrovENT UD) 0.5 mg [id number] IH 07/30/24 18:00 08/29/24 17:59 08/08/24 11:46 0.5 MG Linezolid 300 ml @ 150 mls/hr Q12H IV 08/03/24 13:00 08/13/24 12:59 08/08/24 01:08 150 MLS/HR Magnesium Sulfate 50 ml @ 0 mls/hr PROTOCOL IV 08/06/24 13:00 09/05/24 12:59 Magnesium Sulfate 50 ml @ 0 mls/hr PROTOCOL PRN IV hypomagnesemia 07/25/24 18:00 08/06/24 17:19 DC 08/06/24 10:01 0 MLS/HR Meropenem (Merrem 1gm) 1 gm Q12H IVPB 07/27/24 15:30 08/03/24 03:31 DC 08/03/24 03:31 1 GM Meropenem (Merrem 1gm) 1 gm Q12H IVPB 08/03/24 15:30 08/10/24 03:31 08/08/24 03:32 1 GM Metoprolol Tartrate (loprESSOR) 2.5 mg Q12H9 IV 07/31/24 21:00 08/30/24 20:59 08/08/24 08:14 2.5 MG Midazolam HCl 50 ml @ 0 mls/hr PROTOCOL IV 07/26/24 13:30 07/29/24 13:42 DC Nystatin (MycoSTATin 30 GM CREAM) 1 APPL BID TP 07/31/24 21:00 08/30/24 20:59 08/08/24 08:21 1 APPL Ondansetron HCl (zoFRAN 4MG INJ) 4 mg Q6H PRN IVP NAUSEA/VOMITING 07/25/24 18:00 08/24/24 17:59 08/03/24 15:32 4 MG Pharmacy Profile Note (Lace Assessment) 1 each AD MISC 07/27/24 15:30 07/27/24 15:14 DC Pharmacy Profile Note (Lace Assessment) 1 each AD MISC 08/03/24 11:00 08/03/24 11:10 DC Pharmacy Profile Note (Pharmacy Communication) 1 each ONCE MISC 07/27/24 15:00 07/28/24 07:29 DC Pharmacy Profile Note (Pharmacy Communication) 1 each ONCE MISC 08/03/24 11:00 08/03/24 11:47 DC Pharmacy Profile Note (Pharmacy Communication) 1 each ONCE MISC 08/03/24 11:00 08/03/24 11:53 DC Phenol (Sore Throat [place]) 1 spry Q4H PRN PO SORE THROAT 08/01/24 05:00 08/31/24 04:59 08/03/24 10:19 1 SPRY Phenylephrine HCl 100 mg/Sodium Chloride 250 ml @ 0 mls/hr AD PRN IV TITRATE 07/26/24 13:30 08/03/24 13:31 DC 07/30/24 04:41 9.52 MLS/HR Piperacillin Sod/ Tazobactam Sod (Zosyn 3.375gm+NS 50ml) 3.375 gm Q12H IV 07/25/24 20:00 07/25/24 17:27 DC Piperacillin Sod/ Tazobactam Sod (Zosyn 3.375gm+NS 50ml) 3.375 gm Q8H IVPB 07/25/24 19:00 07/26/24 21:40 DC 07/26/24 19:40 3.375 GM Piperacillin Sod/ Tazobactam Sod (Zosyn 3.375gm+NS 50ml) 3.375 gm Q8H IVPB 07/25/24 20:00 07/25/24 18:49 DC Potassium Chloride 100 ml @ 50 mls/hr AD PRN IV POTASSIUM PROTOCOL 07/25/24 18:00 08/24/24 17:59 08/06/24 16:20 50 MLS/HR Potassium Chloride (K-Dur/Klor-Con 20meq) 20 meq AD PRN PO POTASSIUM PROTOCOL 08/06/24 12:30 09/05/24 12:29 08/08/24 08:14 20 MEQ Potassium Chloride (KCl 10% Elixir 20meq/15ml) 20 meq AD PRN PO POTASSIUM PROTOCOL 08/06/24 12:30 09/05/24 12:29 08/06/24 12:49 20 MEQ Propofol 100 ml @ 0 mls/hr AD PRN IV TITRATE 07/26/24 13:30 07/29/24 13:42 DC 07/29/24 02:49 12.2 MLS/HR Sodium Chloride 1,000 ml @ 50 mls/hr Q20H IV 08/04/24 11:30 08/06/24 12:06 DC 08/06/24 09:10 50 MLS/HR Sodium Chloride 1,000 ml @ 125 mls/hr Q8H IV 07/25/24 17:30 07/27/24 16:01 DC 07/27/24 07:58 125 MLS/HR Sodium Chloride (NS 50ml) 50 ml AD IV 07/25/24 17:00 07/25/24 17:29 DC Vancomycin HCl 250 ml @ 125 mls/hr Q12H IV 07/31/24 04:00 08/02/24 04:37 DC 08/01/24 03:10 125 MLS/HR Vancomycin HCl 250 ml @ 125 mls/hr Q12H IV 08/02/24 05:00 08/03/24 11:09 DC 08/02/24 17:22 125 MLS/HR Vancomycin HCl 250 ml @ 125 mls/hr Q24H IV 07/26/24 17:00 07/27/24 15:09 DC 07/26/24 19:55 125 MLS/HR Vancomycin HCl (Vancomycin Protocol) 1 each AD IV 07/25/24 17:00 07/27/24 14:55 DC Vancomycin HCl (Vancomycin Protocol) 1 each AD IV 07/30/24 15:00 08/03/24 11:09 DC Wound Care/ Dressing Products (Venelex Ointment) BID TP 07/31/24 21:00 08/30/24 20:59 08/08/24 08:21 1 GM DIAGNOSTICS / RADIOLOGY: [ ] ASSESSMENT: Septic shock requiring pressors Bacterial peritonitis POA Bowel perforation w/ [id number] S/P exploratory laparotomy with drainage of intra-abdominal abscess/ventral hernia repair/small-bowel resection/NS of adhesions/left open and a wound VAC on 07/26/24 per High risk for ischemic bowel-POA Intractable abdominal pain-POA Acute hypokalemia-POA this is Dehydration-POA SHARMILA not POA Lactic acidosis-POA Hyperglycemia 2/2 uncontrolled diabetes mellitus Primary HTN HX of colitis HX of inflammatory bowel disease (Crohn's Disease) HX of cardiac arrest HX of BLE cellulitis Recent hospitalization for UTI with outpatient Zosyn antibiotic \ PLAN: Patient remains admitted to the medical floor TPN discontinued Patient is started on clear liquid diet, speech therapy consulted, patient on GI soft diet Continue to follow surgical input and recommendation Doppler of the left lower extremity negative for DVT Serial CBC transfuse 1 unit of PRBC if hemoglobin less than seven We will discuss discharge plan with case management. NEURO: Minimize central acting medications as possible. Fall Precautions. Well lighted room through the day and minimize interruptions through the night to prevent acute delirium. PULMONARY: Supplemental 02 as needed BiPAP as necessary, for respiratory distress Titrate Fio2 to keep Spo2 > or = 90% DuoNebs and CPT as needed IS hourly while awake for pulmonary hygiene prn Out of bed to chair as tolerated Maintain aspiration precautions at all times CARDIOVASCULAR: Follow hemodynamics. Vital signs per facility protocol GI & NUTRITION: Continue nutritional support Aspirations precautions Prokinetic agents and laxatives as needed KIDNEYS & ELECTROLYTES: Strict monitoring of intake and output Daily weights Avoid nephrotoxic agents Monitor electrolytes and replace as needed Goal urine output of 30mL/hr or 0.5mL/kg/hr Medications to be dosed according to renal function. Avoid contrast if possible ENDOCRINE: Maintain blood glucose between 100-180 at all times. Insulin sliding scale for blood glucose management Hypoglycemia and hyperglycemia protocol in place INFECTIOUS DISEASE: Trend temperature, WBC and procalcitonin level Follow cultures, deescalate antibiotics as soon as possible. Panculture if new onset fever HEMATOLOGY & COAGULATION: Monitor H&H. Keep Hgb > 7 Transfuse 1 unit of PRBC for Hgb < 7 Transfuse 1 pack of platelets of platelets < 20, 000 Watch for any signs and symptoms of bleeding SKIN: Pressure ulcer prevention per facility protocol Specialty mattress as needed ORTHO/REHAB Continue PT/OT PRN: MEDICATIONS Tylenol 650 mg po every 4 hrs for fever zofran 4 mg IV every 6 hrs for n/v Hydralazine 5 mg IV every 4 hrs systolic pressure > 160 bowel regiment: lactulose 20 gm PO BID PRN constipation Supportive measures: Continue GI and DVT prophylaxis Disposition: Pending improvement in clinical condition All questions answered time spent: > 35 min MICKEY FINNEY MD Aug 08, 2024 12:06
[2024-08-08] MEDS: PoTASSium chloRIDE 20MEQ ER 20 MEQ ERTAB PO ONE (12:18)
[2024-08-08] MEDS: metoPROLOL tartRATE 25 MG TAB PO SCH (12:21)
[2024-08-08] MEDS ORDERED: hydrALAZine 20MG/ML VIAL IV PRN (12:30)
[2024-08-08 13:34] LABS: HEMATOCRIT 24.6 % (36-48); MEAN CORPUSCULAR HEMOGLOBIN 27.1 pg (27.0-33.0); MEAN CORPUSCULAR HGB CONC 32.1 g/dL (32.0-36.0); MEAN CORPUSCULAR VOLUME 84.2 fL (79-99); RED BLOOD CELL COUNT(AUTO) 2.92 MIL/uL (4.00-5.50); RED CELL DISTRIBUTION WIDTH 17.4 % (11.0-15.5); WHITE BLOOD COUNT (AUTO) 9.7 K/uL (4.8-10.8)
--- NOTE | 2024-08-08 13:45 | NUR ---
[facility] Follow-up: Patient re-assessed by wound healing team, Rash to buttocks/coccyx improving. Education provided to family. Addendum: 08/09/24 at 1214 by ANA LARA RN RN/ Amended: Links added.
--- NOTE | 2024-08-08 15:21 | HMCIMG ---
Exam Type: ABD 1VW Clinical Information: ABD DISTENDED Comparison: None Findings: Abdomen demonstrates no evidence of pathologic calcification or soft tissue mass. There are no radiopacities to suggest calculous disease. The intestinal gas pattern is within normal limits without evidence of dilatation to suggest obstruction or adynamic ileus. The bony structures are unremarkable. Laparotomy sutures. Pelvic surgical drains. IMPRESSION: Normal bowel gas pattern.
--- NOTE | 2024-08-08 17:22 | PN ---
[facility] PROGRESS NOTE Date Patient Seen: Aug 08, 2024 Time of Visit: 14:15 Supervising Physician: Primary Care Physician: [Dr. [facility] ] Outpatient Specialists: [GI: Dr. Solitario ] Inpatient Consults: [Dr. Quintero of surgery ] PROBLEM LIST: Septic shock from below requiring pressors,resolving Bacterial peritonitis POA + Enterococcus Raffinosus and Klebsiella pneumoniae Bowel perforation w/ Pneumoperitoneum-POA S/P exploratory laparotomy with drainage of intra-abdominal abscess/ventral hernia repair/small-bowel resection/lysis of adhesions/left open and a wound VAC on 07/26/24 per Removal of previously placed ABThera wound VAC & Placement of Seprafilm adhesion barrier 07/28/24 per Incarcerated ventral hernia POA Primary repair ventral hernia 07/28/24 Left Lateral Hernia POA Primary repair left flank hernia 07/28/24 Acute cholecystitis, POAopen cholecystectomy on 07/28/24 Acute hypokalemia-POA Dehydration-POA SHARMILA not POA Lactic acidosis-POA Hyperglycemia 2/2 uncontrolled diabetes mellitus Primary HTN HX of colitis HX of inflammatory bowel disease (Crohn's Disease) Recent hospitalization for UTI with outpatient Zosyn antibiotic with Dr. Sharmila blanco INTERVAL HISTORY: This is Day 1 open cholecystectomy with removal of previously placed ABTHera wound VAC, placement of ceftriaxone home adhesion barrier, primary repair of left flank hernia and repair of ventral hernia per . no further plans of taking pt back to OR per report. Per RN no major overnight event. Patient is on sedation vacation this morning still 117 to wake up grimaces to movement. Will attempt CPAP this morning. Weaning Jose Armando-Synephrine currently yesterday 0.1 mcg/kg per minute. Lines: Right IJ Cordis, arterial line, OG tube, ET tubes, Troy catheter, DP is. Left BYRON drain 320 mL with red BYRON draining 120 mL. She remains NPO on TPN at 75 mL/hour. Urine output of 3.6 L,-1.9 L balance Patient's problems has been updated of plan of care and verbalizes understanding. He continues IV antibiotics. Intra-abdominal fluid culture growing positive for Klebsiella pneumoniae and Enterococcus Raffinosus. White count is 9.8 similar to yesterday, H&H stable 8.61/28.5 platelet count trending down 76 K today. Creatinine of 0.7 with GFR of 99 kidneys are improved. Magnesium of 1.7 covered per protocol. Blood sugar of 311 mg/dL insulin adjusted. X-ray stable. ET tube 4.4 cm with the ld. No pneumothorax. 07/30/2024: At the time of my evaluation, the patient was lying in bed. She remains intubated and on mechanical vent support. On the monitor, the patient was marginally tachycardic, tachypneic and blood pressure within normal ranges. Laboratory data today showed improved WBC down to 10.6 there was no profound anemia or thrombocytopenia. Chemistry panel showed no major electrolyte derangement or renal parameter changes. No new microbiology data for review today. Chest imaging showed bilateral pneumonic infiltrates and cardiomegaly. No other complaint. 07/31/2024: At the time of my evaluation, the patient was lying in bed. Family member and staff nurse are present at the bedside. Per the staff nurse, no acute events overnight. On the monitor, the patient had no febrile events, no tachycardia or tachypnea. Blood pressure between normal range and she remains on nasal cannula for oxygen supplementation. Laboratory data today , showed no leukocytosis, there was significant anemia 7.3/23.5 and platelet count of 119. No chemistry was collected for today. Imaging for today still shows pulmonary vascular congestion and pneumonic infiltrates bilaterally. Troy catheter remains in place and patient had a documented urinary output of 2700 mL and a net balance of -28.0. No other complaint 08/01/2024: At the time of my evaluation, the patient was lying in bed. Staff nurse reports no acute events overnight. On the monitor, the patient is with borderline tachycardia, no tachypnea and normotensive. She remains on a nasal cannula for oxygen supplementation. Surgical site, is benign. BYRON drain x2 totaling 335 mL out voided output of 4800 mL over the past 24 hours with a net balance of -2585.1. Laboratory data today did show a drop in H&H to 7.1/23.4 and a platelet count of 111. Chemistry panel showed a potassium of 3.2, renal parameters were not of concern. No new microbiology data for review. Chest x- ray today showed bilateral pneumonic infiltrate and a right mid lung atelectasis. There was also borderline cardiomegaly. Currently, the patient remains on antibiotic coverage with meropenem, fluconazole and vancomycin. She is also on nutritional support with TPN. No other complaint. 08/02/2024: At the time of my evaluation, the patient was lying in bed. Staff nurse reports no acute events overnight. The patient is breathing on room air. On the monitor, parameters are unremarkable. Laboratory data showed a hemoglobin of 9.7 and hematocrit of 31.3. Platelet count 166. Chemistry panel was notable for a potassium of 3.2 otherwise unremarkable no new imaging for review today. Currently, the patient remains on TPN for nutritional support and is on antibiotic therapy with Merrem, vanco and fluconazole. No other complaint. 08/03 patient is evaluated at bedside. Her WBCs significantly increased to 27 then 34 up from eight yesterday. Her hemoglobin has remained stable at 11.2. No fever overnight. Her BYRON drain has normal serous fluid with minimal output since yesterday. She is pending a repeat CT abdomen. General surgery is aware, pending further recommendation. Patient states her pain is actually improved from yesterday. 08/04 patient was evaluated at bedside. She had two episodes of nonbloody emesis yesterday. She remains NPO today and continues on TPN. General surgery has ordered IV fluids. Her WBC his downtrending but still significantly elevated at 30. Patient states her pain is much decreased. No fever reported overnight. Continues on IV antibiotic. 08/05 patient is evaluated at bedside. Her WBCs downtrending currently 223. Hemoglobin is persistently decreasing, from 11.22 days ago to 7.7 today. No signs of bleeding per BYRON drain which has minimal normal serous fluid and Troy bag which has normal colored urine. Continues NPO with TPN. No current fever or abdominal pain. No nausea or vomiting. Continue to follow General surgery recommendation. 08/06 Patient seen and examined at the bedside, she is off TPN, he has no fever, chills, nausea or vomiting, No abdominal pain or diarrhea no new events plan is to repeat labs in am , advance on diet as tolerates. 08/07 Patient is awake, alert, well oriented, not in distress, started on oral intake, denies fever , chills, nausea or vomiting. No chest pain , no more IVF, case management making all arrangement for discharge with IV antibiotics , as per case management and Dr Diaz recommendation she is going to be discharge to [facility], from pulmonary stand point of view no further intervention at this moment, therefore plan is to signs off this case, do not hesitate to contact us if necessary. 08/08 Patient is awake, alert, well oriented, complaining of severe abdominal distention apparently , was not like that before she was transferred to the chair plan is to obtain KUB, we will follow up on results, as per family and patient her abdomen distended in less than 1 hour. REVIEW OF SYSTEMS: 12- point system review was carried out, pertinent positive documented above otherwise negative. PHYSICAL EXAM: GENERAL: Critically- ill appearing. HEENT: Sclera non icteric, moist mucosa pupils3 mm echo and sluggish NECK: Supple, no JVD, trachea midline right IJ Cordis LUNGS: Diminished breath sounds bilaterally. No wheezes HEART: Regular rate and rhythm. Normal S1 and S2, without murmurs ABD: Obese abdomen, mid abdomen dressing clean dry and intact. Bilateral BYRON present. very distended. EXT: No clubbing cyanosis or edema. Troy in situ NEURO: Awake, alert and follows commands. Vital Signs (last 8hr) Date Time Temp Pulse Resp B/P (MAP) Pulse Ox O2 Delivery O2 Flow Rate FiO2 08/08/24 16:00 97.5 98 18 140/95 95 Room Air 08/08/24 12:00 97.7 102 18 136/98 95 Room Air 08/08/24 11:46 102 18 LABS: Hematology Labs: Test 08/08/24 13:30 Range/Units White Blood Count 9.7 4.8-10.8 K/uL Red Blood Count 2.92 L 4.00-5.50 MIL/uL Hemoglobin 7.9 L 12.0-16.0 g/dL Hematocrit 24.6 L 36-48 % Mean Corpuscular Volume 84.2 79-99 fL Mean Corpuscular Hemoglobin 27.1 27.0-33.0 pg Mean Corpuscular Hemoglobin Concent 32.1 32.0-36.0 g/dL Red Cell Distribution Width 17.4 H 11.0-15.5 % Platelet Count 419 #H 130-400 K/uL Mean Platelet Volume 10.8 H 7.5-10.5 fL Nucleated Red Blood Cells 0.0 0.0-0.19 % Chemistry Labs: Test 08/08/24 15:22 08/08/24 06:15 08/07/24 05:16 Range/Units Whole Blood Glucose 222 H 70-110 MG/DL Sodium Level 141 136-145 mmol/L Potassium Level 3.5 3.5-5.1 mmol/L Chloride Level 105 101-111 mmol/L Carbon Dioxide Level 27 21-32 mmol/L Blood Urea Nitrogen 26 H 7-18 mg/dL Creatinine 0.9 0.5-1.0 mg/dL Glomerular Filtration Rate Calc 73 >90 mL/min Random Glucose 150 H 70-105 mg/dL Total Calcium 8.1 L 8.5-10.1 mg/dL Magnesium Level 1.70 L 1.80-2.40 mg/dL Total Bilirubin 0.5 0.2-1.0 mg/dL Aspartate Amino Transf (AST/SGOT) 29 10-37 U/L Alanine Aminotransferase (ALT/SGPT) 49 12-78 U/L Alkaline Phosphatase 370 H 50-136 U/L Total Protein 4.7 L 6.0-8.3 g/dL Albumin 1.2 L 3.5-5.0 g/dL Lactic Acid Level 1.2 0.8-2.5 mmol/L Phosphorus Level 3.4 2.5-4.9 mg/dL DIAGNOSTICS / RADIOLOGY RESULTS: [ ] PLAN KUB STAT Lovenox 40 mg sq daily Discharge plan as per primary Sign off this case NEURO: Minimize central acting medications as possible. Maintain fall precautions, adequate lighting during the day PULMONARY: Supplemental 02 as needed. Maintain aspiration precautions at all times CARDIOVASCULAR: Follow hemodynamics. Vital signs per facility protocol GI & NUTRITION: Continue with nutritional support. Continue stool softeners and laxatives as needed. KIDNEYS & ELECTROLYTES: Strict monitoring of intake, output and overall fluid balance. Avoid nephrotoxic medications to the extent possible. Medications to be dosed according to renal function. Monitor electrolytes and replace as needed ENDOCRINE: Maintain blood glucose between 100-180 at all times. Hypoglycemia protocol in place INFECTIOUS DISEASE: Trend temperature, WBC and procalcitonin level Follow cultures, deescalate antibiotics as soon as possible. Panculture if new onset fever ONCOLOGY/HEMATOLOGY/COAGULATION: Monitor for s/s of bleeding Monitor hemoglobin, coagulation studies as needed SKIN: Pressure ulcer prevention per facility protocol Specialty mattress ORTHO/REHAB: Continue PT/OT Prophylaxis: Continue GI and DVT prophylaxis Code Status: Full Resuscitation Disposition: TBD ATTESTATION BY PHYSICIAN Documentation assistance provided by a scribe, information recorded by the scribe was done at my direction and has been reviewed and validated by me." JENNI RAMIREZ MD I personally scribed for JENNI RAMIREZ MD ([email or web address]) on 08/08/24 at 17:22. Electronically submitted by Jenelle Landeros ([email or web address]). JENNI RAMIREZ MD Aug 08, 2024 17:22
[2024-08-08] MEDS: MAGNESIUM 2GM PREMIX 50ML 50 ML IV SCH (18:34)
[2024-08-08] MEDS: INSULIN humuLIN R 100 UNIT/ML 3ML SQ SCH (20:28)
--- NOTE | 2024-08-08 20:40 | NUR ---
MEDS SHIFT ASSESSMENT DONE, PLEASE REFER TO CHART. DUE MEDS ADMINISTERED, TOLERATED WELL. KEPT RESTED AND COMFORTABLE IN BED. CALL LIGHT WITHIN REACH.FAMILY AT BEDSIDE.
[2024-08-08 21:57] LABS: HEMATOCRIT 23.3 % (36-48); MEAN CORPUSCULAR HEMOGLOBIN 26.7 pg (27.0-33.0); MEAN CORPUSCULAR HGB CONC 31.3 g/dL (32.0-36.0); MEAN CORPUSCULAR VOLUME 85.3 fL (79-99); RED BLOOD CELL COUNT(AUTO) 2.73 MIL/uL (4.00-5.50); RED CELL DISTRIBUTION WIDTH 17.3 % (11.0-15.5); WHITE BLOOD COUNT (AUTO) 9.3 K/uL (4.8-10.8)
--- NOTE | 2024-08-08 23:56 | PN ---
INFECTIOUS DISEASE PROGRESS NOTE Date of Service: Aug 08, 2024 SUBJECTIVE: Patient was seen and examined at bedside in room 326. Patient is awake, alert and oriented x 3. Patient has been referred to [facility] for rehab and IV antibiotics and pending insurance approval. The WBC is now 9.3 and no reports of fever, temperature is 97.5. Will continue on Meropenem, linezolid and fluconazole. No reports of nausea or vomiting. PHYSICAL EXAM EYES: Anicteric. Pupils equal and reactive. HENT: No oral thrush seen, moist Oral mucosa. NECK: Supple, no JVD or thyromegaly. LUNGS: Good air entry. No rales, no rhonchi. CARDIOVASCULAR: S1, S2 regular. No murmur heard. ABDOMEN: Soft, non tender, bowel sounds present, no organomegaly. Abdominal surgical incision with two BYRON drains. CENTRAL NERVOUS SYSTEM: Awake, alert and oriented x3. SKIN: No rashes, no swelling. LYMPHATICS: No peripheral lymphadenopathy. MUSCULOSKELETAL: No joint swelling, erythema or tenderness. Debility. EXTREMITIES: No cyanosis or clubbing. BACK: No deformity, no pressure ulcer. GENITOURINARY: No dysuria or hematuria. Troy catheter. Vital Sign (Last 12 Hours) 08/08/24 08/08/24 08/08/24 08/08/24 12:00 16:00 18:35 18:35 Temp 97.7 97.5 Pulse 102 98 92 91 Resp 18 18 17 17 B/P (MAP) 136/98 140/95 Pulse Ox 95 95 O2 Delivery Room Air Room Air N/A Room Air FiO2 21 08/08/24 08/08/24 08/08/24 08/08/24 20:38 20:40 20:43 23:02 Temp 97.3 Pulse 90 90 89 Resp 18 18 B/P (MAP) 114/79 114/79 Pulse Ox 96 96 O2 Delivery Room Air* Room Air O2 Flow Rate 0 FiO2 21 Intake & Output (last 24hrs) 08/07/24 08/07/24 08/08/24 15:00 23:00 07:00 Intake Total 400.0 ml Output Total 65 ml 46 ml Balance -65 ml 354.0 ml LABS: Laboratory: Test 08/08/24 21:50 08/08/24 19:59 08/08/24 06:15 08/07/24 05:16 Range/Units White Blood Count 9.3 4.8-10.8 K/uL Red Blood Count 2.73 L 4.00-5.50 MIL/uL Hemoglobin 7.3 L 12.0-16.0 g/dL Hematocrit 23.3 L 36-48 % Mean Corpuscular Volume 85.3 79-99 fL Mean Corpuscular Hemoglobin 26.7 L 27.0-33.0 pg Mean Corpuscular Hemoglobin Concent 31.3 L 32.0-36.0 g/dL Red Cell Distribution Width 17.3 H 11.0-15.5 % Platelet Count 394 130-400 K/uL Mean Platelet Volume 10.5 7.5-10.5 fL Nucleated Red Blood Cells 0.0 0.0-0.19 % Whole Blood Glucose 120 H 70-110 MG/DL Sodium Level 141 136-145 mmol/L Potassium Level 3.5 3.5-5.1 mmol/L Chloride Level 105 101-111 mmol/L Carbon Dioxide Level 27 21-32 mmol/L Blood Urea Nitrogen 26 H 7-18 mg/dL Creatinine 0.9 0.5-1.0 mg/dL Glomerular Filtration Rate Calc 73 >90 mL/min Random Glucose 150 H 70-105 mg/dL Total Calcium 8.1 L 8.5-10.1 mg/dL Magnesium Level 1.70 L 1.80-2.40 mg/dL Total Bilirubin 0.5 0.2-1.0 mg/dL Aspartate Amino Transf (AST/SGOT) 29 10-37 U/L Alanine Aminotransferase (ALT/SGPT) 49 12-78 U/L Alkaline Phosphatase 370 H 50-136 U/L Total Protein 4.7 L 6.0-8.3 g/dL Albumin 1.2 L 3.5-5.0 g/dL Lactic Acid Level 1.2 0.8-2.5 mmol/L Phosphorus Level 3.4 2.5-4.9 mg/dL ASSESSMENT: Intestinal perforation, s/p closure of exploratory laparotomy on 07/28/2024. Intra-abdominal abscess with polymicrobial infection, status post open drainage 07/26/2024. Peritonitis. Leukocytosis, resolved. Anemia requiring blood transfusion. Respiratory failure requiring intubation, s/p extubated. History of colitis. Debility. PLAN: Continue linezolid IV. Continue Meropenem. Continue fluconazole. Continue GI prophylaxis. Continue physical therapy. Continue Nutritional support as recommended by General surgery. Patient has been referred to [facility] for rehab and IV antibiotics and pending insurance approval. This case was reviewed and discussed with my supervising physician and the above assessment and plan was formulated and agreed upon. ATTESTATION BY PHYSICIAN I have seen and examined the patient. I reviewed the documentation, medical decision making, and treatment plan as noted by the mid-level provider above. I agree with the findings and plan of care. MILLIE CHATTERJEE MD, [facility] Aug 08, 2024 23:56
[2024-08-09] VITALS (12 sets, daily range): BP systolic 113–143; BP diastolic 79–88; PULSE 81–96; RESP 17–20; TEMP 97.4–98.2; O2SAT 95–99
--- NOTE | 2024-08-09 04:49 | NUR ---
PAIN PT COMPLAINTS OF PAINS TO HER BACK. MEDICATED WITH TYLENOL PO. KEPT COMFORTABLE IN BED. WILL RE-ASSESS PT.
[2024-08-09] MEDS: acetaMINOPHEN 325 MG TAB PO PRN (04:59)
[2024-08-09 06:32] LABS: HEMATOCRIT 24.5 % (36-48); MEAN CORPUSCULAR HEMOGLOBIN 26.4 pg (27.0-33.0); MEAN CORPUSCULAR HGB CONC 30.2 g/dL (32.0-36.0); MEAN CORPUSCULAR VOLUME 87.5 fL (79-99); RED BLOOD CELL COUNT(AUTO) 2.8 MIL/uL (4.00-5.50); RED CELL DISTRIBUTION WIDTH 17.3 % (11.0-15.5); WHITE BLOOD COUNT (AUTO) 7.3 K/uL (4.8-10.8)
[2024-08-09 06:58] LABS: ALBUMIN 1.3 g/dL (3.5-5.0); BILIRUBIN,TOTAL 0.4 mg/dL (0.2-1.0); CREATININE 1.2 mg/dL (0.5-1.0); MAGNESIUM 2.1 mg/dL (1.80-2.40); POTASSIUM 3.7 mmol/L (3.5-5.1)
--- NOTE | 2024-08-09 09:17 | PN ---
GASTROENTEROLOGY PROGRESS NOTE Date of Visit: Aug 09, 2024 Time of Visit: 09:17 Events / Notes: [ ] Review of Systems: CONSTITUTIONAL: No malaise or change in sensation of wellbeing. ENMT: No rhinorrhea, otorrhea, sinus pain, ear ache. CARDIOVASCULAR: No angina, palpitations, orthopnea or paroxysmal dyspnea. RESPIRATORY: No SOB. GASTROINTESTINAL: No abdominal pain, nausea, vomiting, diarrhea, hematemesis, melena or change in the patient's habitual bowel movements consistency/number. GENITOURINARY: No dysuria, hematuria or change in bladder continence. MUSCULOSKELETAL: No new muscle pain or decrease in muscular strength. No new joint swelling, redness or tenderness. SKIN: No new rash. Physical Exam: GEN: Awake, alert, oriented in person, time and place, and in no acute distress. HEENT: No sinus tenderness. Tympanic membranes were not examined. No rhinorrhea. Oral pharyngeal mucosa is pink, moist and within normal limits. Neck is supple with no cervical lymphadenopathy, thyromegaly or JVD. CHEST: Inspection, palpation and percussion of the chest were unremarkable. Lung auscultation revealed normal breath sounds bilaterally. CARDIAC: PMI is within normal limits. Heart sounds are regular. Normal S1, S2. No gallop or murmur. ABD: Soft, non-tender and not distended. No peritoneal signs on palpation. No organomegaly. Normal bowel sounds. EXT: No cyanosis or clubbing. No edema. SKIN: Intact. No rashes. JOINTS: No evidence of synovitis or acute arthritis. NEURO: Alert and oriented to name, place and person. Cranial nerve examination is unremarkable. No focal motor deficits. Normal speech. Gait is normal. Strength is normal. Vital Signs (last 8hr) Date Time Temp Pulse Resp B/P (MAP) Pulse Ox O2 Delivery O2 Flow Rate FiO2 08/09/24 06:31 18 N/A Room Air 21 08/09/24 06:31 88 18 08/09/24 04:26 97.5 83 19 124/79 95 Room Air 08/09/24 01:30 98.2 87 18 113/80 94 Room Air Laboratory: [ ] Laboratory: Test 08/09/24 06:15 08/09/24 05:22 Range/Units White Blood Count 7.3 4.8-10.8 K/uL Red Blood Count 2.80 L 4.00-5.50 MIL/uL Hemoglobin 7.4 L 12.0-16.0 g/dL Hematocrit 24.5 L 36-48 % Mean Corpuscular Volume 87.5 79-99 fL Mean Corpuscular Hemoglobin 26.4 L 27.0-33.0 pg Mean Corpuscular Hemoglobin Concent 30.2 L 32.0-36.0 g/dL Red Cell Distribution Width 17.3 H 11.0-15.5 % Platelet Count 376 130-400 K/uL Mean Platelet Volume 10.6 H 7.5-10.5 fL Nucleated Red Blood Cells 0.0 0.0-0.19 % Sodium Level 141 136-145 mmol/L Potassium Level 3.7 3.5-5.1 mmol/L Chloride Level 105 101-111 mmol/L Carbon Dioxide Level 29 21-32 mmol/L Blood Urea Nitrogen 27 H 7-18 mg/dL Creatinine 1.2 H 0.5-1.0 mg/dL Glomerular Filtration Rate Calc 52 >90 mL/min Random Glucose 109 H 70-105 mg/dL Total Calcium 8.6 8.5-10.1 mg/dL Magnesium Level 2.10 1.80-2.40 mg/dL Total Bilirubin 0.4 0.2-1.0 mg/dL Aspartate Amino Transf (AST/SGOT) 23 10-37 U/L Alanine Aminotransferase (ALT/SGPT) 40 12-78 U/L Alkaline Phosphatase 391 H 50-136 U/L Total Protein 5.0 L 6.0-8.3 g/dL Albumin 1.3 L 3.5-5.0 g/dL Whole Blood Glucose 111 H 70-110 MG/DL Current Medications Medications (Trade) Dose Ordered Sig/Alexandra Route PRN Reason Start Time Stop Time Status Last Admin Dose Admin Acetaminophen (TYLenol 325MG TAB) 650 mg Q4H PRN PO TEMPERATURE GREATER THAN 101.5 08/06/24 23:30 09/05/24 23:29 08/07/24 08:16 650 MG Acetaminophen (TYLenol 325MG TAB) 650 mg Q4H PRN PO PAIN LEVEL 1 TO 3 08/09/24 05:00 09/08/24 04:59 08/09/24 04:59 650 MG Albumin Human 100 ml @ 50 mls/hr AD IV 07/28/24 08:00 07/31/24 07:59 DC Cefepime HCl (MAXipime 2 gm vial) 2 gm Q24H IVPB 07/26/24 22:00 07/27/24 14:55 DC 07/26/24 22:54 2 GM Dexmedetomidine/ Sodium Chloride (PRECEdex 400MCG/ 100ML-NS) 400 mcg PROTOCOL PRN IV agitation 07/29/24 14:00 08/03/24 13:31 DC 07/30/24 01:18 400 MCG Dextrose (D50w) 50 ml AD PRN IV HYPOGLYCEMIA PROTOCOL 07/27/24 16:00 08/26/24 15:59 08/07/24 00:07 50 ML Enoxaparin Sodium (Lovenox) 40 mg DAILY SQ 08/07/24 09:00 09/06/24 08:59 08/09/24 08:59 40 MG Famotidine (Pepcid 20mg Vial) 20 mg Q24H IV 07/25/24 21:00 08/24/24 20:59 08/08/24 20:38 20 MG Fat Emulsion Intravenous 250 ml @ 42 mls/hr QMOFR IV 07/29/24 09:00 08/05/24 16:31 DC 08/05/24 09:35 42 MLS/HR Fentanyl Citrate 100 ml @ 0 mls/hr PROTOCOL IV 07/26/24 13:30 07/27/24 12:04 DC Fentanyl Citrate 100 ml @ 0 mls/hr PROTOCOL IV 07/27/24 12:30 07/29/24 13:42 DC 07/29/24 02:03 5 MLS/HR Fentanyl/Sodium Chloride 250 ml @ 0.1 mls/hr PROTOCOL IV 07/27/24 12:00 07/27/24 12:05 DC Fluconazole/ Sodium Chloride 100 ml @ 100 mls/hr Q24H IV 07/26/24 13:30 08/25/24 13:29 08/08/24 12:17 100 MLS/HR Furosemide (LASix 20MG VIAL) 20 mg Q8H IV 07/28/24 15:30 08/27/24 15:29 08/09/24 06:09 20 MG Glucagon (Glucagon 1mg Kit) 1 mg AD PRN IM HYPOGLYCEMIA PROTOCOL 07/27/24 16:00 08/26/24 15:59 Hydralazine HCl (APRESOLine 20MG INJ) 5 mg Q6H PRN IV ADMINISTER FOR SBP > 160 08/08/24 12:30 09/07/24 12:29 Hydromorphone HCl (DiLAUDid 0.5MG INJ) 0.5 mg Q4H PRN IVP SEVERE PAIN (7-10) 07/29/24 14:00 08/03/24 13:59 DC 08/02/24 11:44 0.5 MG Insulin Glargine (LANtus 100 UNITS/ML 10 ML VIAL) 5 units HS SQ 07/27/24 21:00 07/29/24 09:47 DC 07/28/24 20:48 5 UNITS Insulin Glargine (LANtus 100 UNITS/ML 10 ML VIAL) 15 units BID SQ 07/29/24 21:00 08/06/24 12:06 DC 08/05/24 21:42 15 UNITS Insulin Glargine (LANtus 100 UNITS/ML 10 ML VIAL) 15 units HS SQ 07/29/24 21:00 07/29/24 13:43 DC Insulin Human Regular (humuLIN R 100 UNIT/ML 3ML) INSULIN SLIDING SCAL... ACHS SQ 08/08/24 21:00 09/07/24 20:59 Insulin Human Regular (humuLIN R 100 UNIT/ML 3ML) INSULIN SLIDING SCAL... Q6H6 SQ 07/26/24 00:00 08/08/24 19:44 DC 08/08/24 18:45 3 UNIT Ipratropium [place] (AtrovENT UD) 0.5 mg [id number] IH 07/30/24 18:00 08/29/24 17:59 08/09/24 06:34 0.5 MG Linezolid 300 ml @ 150 mls/hr Q12H IV 08/03/24 13:00 08/13/24 12:59 08/09/24 00:13 150 MLS/HR Magnesium Sulfate 50 ml @ 0 mls/hr PROTOCOL IV 08/06/24 13:00 08/08/24 12:12 DC Magnesium Sulfate 50 ml @ 0 mls/hr PROTOCOL IV 08/08/24 12:30 09/07/24 12:29 08/08/24 18:34 0 MLS/HR Magnesium Sulfate 50 ml @ 0 mls/hr PROTOCOL PRN IV hypomagnesemia 07/25/24 18:00 08/06/24 17:19 DC 08/06/24 10:01 0 MLS/HR Meropenem (Merrem 1gm) 1 gm Q12H IVPB 07/27/24 15:30 08/03/24 03:31 DC 08/03/24 03:31 1 GM Meropenem (Merrem 1gm) 1 gm Q12H IVPB 08/03/24 15:30 08/10/24 03:31 08/09/24 02:39 1 GM Metoprolol Tartrate (loprESSOR) 2.5 mg Q12H9 IV 07/31/24 21:00 08/30/24 20:59 08/08/24 20:38 2.5 MG Metoprolol Tartrate (loprESSOR) 25 mg BID PO 08/08/24 12:30 09/07/24 12:29 08/09/24 08:59 25 MG Midazolam HCl 50 ml @ 0 mls/hr PROTOCOL IV 07/26/24 13:30 07/29/24 13:42 DC Nystatin (MycoSTATin 30 GM CREAM) 1 APPL BID TP 07/31/24 21:00 08/30/24 20:59 08/09/24 09:02 1 APPL Ondansetron HCl (zoFRAN 4MG INJ) 4 mg Q6H PRN IVP NAUSEA/VOMITING 07/25/24 18:00 08/24/24 17:59 08/03/24 15:32 4 MG Pharmacy Profile Note (Lace Assessment) 1 each AD MISC 07/27/24 15:30 07/27/24 15:14 DC Pharmacy Profile Note (Lace Assessment) 1 each AD MISC 08/03/24 11:00 08/03/24 11:10 DC Pharmacy Profile Note (Pharmacy Communication) 1 each ONCE MISC 07/27/24 15:00 07/28/24 07:29 DC Pharmacy Profile Note (Pharmacy Communication) 1 each ONCE MISC 08/03/24 11:00 08/03/24 11:47 DC Pharmacy Profile Note (Pharmacy Communication) 1 each ONCE MISC 08/03/24 11:00 08/03/24 11:53 DC Phenol (Sore Throat Grandy) 1 spry Q4H PRN PO SORE THROAT 08/01/24 05:00 08/31/24 04:59 08/03/24 10:19 1 SPRY Phenylephrine HCl 100 mg/Sodium Chloride 250 ml @ 0 mls/hr AD PRN IV TITRATE 07/26/24 13:30 08/03/24 13:31 DC 07/30/24 04:41 9.52 MLS/HR Piperacillin Sod/ Tazobactam Sod (Zosyn 3.375gm+NS 50ml) 3.375 gm Q12H IV 07/25/24 20:00 07/25/24 17:27 DC Piperacillin Sod/ Tazobactam Sod (Zosyn 3.375gm+NS 50ml) 3.375 gm Q8H IVPB 07/25/24 19:00 07/26/24 21:40 DC 07/26/24 19:40 3.375 GM Piperacillin Sod/ Tazobactam Sod (Zosyn 3.375gm+NS 50ml) 3.375 gm Q8H IVPB 07/25/24 20:00 07/25/24 18:49 DC Potassium Chloride 100 ml @ 50 mls/hr AD PRN IV POTASSIUM PROTOCOL 07/25/24 18:00 08/24/24 17:59 08/06/24 16:20 50 MLS/HR Potassium Chloride (K-Dur/Klor-Con 20meq) 20 meq AD PRN PO POTASSIUM PROTOCOL 08/06/24 12:30 09/05/24 12:29 08/08/24 12:17 20 MEQ Potassium Chloride (KCl 10% Elixir 20meq/15ml) 20 meq AD PRN PO POTASSIUM PROTOCOL 08/06/24 12:30 09/05/24 12:29 08/06/24 12:49 20 MEQ Propofol 100 ml @ 0 mls/hr AD PRN IV TITRATE 07/26/24 13:30 07/29/24 13:42 DC 07/29/24 02:49 12.2 MLS/HR Sodium Chloride 1,000 ml @ 50 mls/hr Q20H IV 08/04/24 11:30 08/06/24 12:06 DC 08/06/24 09:10 50 MLS/HR Sodium Chloride 1,000 ml @ 125 mls/hr Q8H IV 07/25/24 17:30 07/27/24 16:01 DC 07/27/24 07:58 125 MLS/HR Sodium Chloride (NS 50ml) 50 ml AD IV 07/25/24 17:00 07/25/24 17:29 DC Vancomycin HCl 250 ml @ 125 mls/hr Q12H IV 07/31/24 04:00 08/02/24 04:37 DC 08/01/24 03:10 125 MLS/HR Vancomycin HCl 250 ml @ 125 mls/hr Q12H IV 08/02/24 05:00 08/03/24 11:09 DC 08/02/24 17:22 125 MLS/HR Vancomycin HCl 250 ml @ 125 mls/hr Q24H IV 07/26/24 17:00 07/27/24 15:09 DC 07/26/24 19:55 125 MLS/HR Vancomycin HCl (Vancomycin Protocol) 1 each AD IV 07/25/24 17:00 07/27/24 14:55 DC Vancomycin HCl (Vancomycin Protocol) 1 each AD IV 07/30/24 15:00 08/03/24 11:09 DC Wound Care/ Dressing Products (Venelex Ointment) BID TP 07/31/24 21:00 08/30/24 20:59 08/09/24 09:01 1 GM Diagnostics / Radiology: [COPY/PASTE HERE IF NO REPORTS PLEASE DELETE SECTION] Assessment: Abnormal imaging with viscous perforation Plan: Follow surgery recommendations ROSANA JIMENEZ [employer] Aug 09, 2024 09:17
--- NOTE | 2024-08-09 09:20 | PN ---
[facility] PROGRESS NOTE Date of Service: Aug 09, 2024 Time of Service: 09:18 SUBJECTIVE: 59-year-old female the past medical history of hypertension who presented to the hospital secondary to abdominal pain. Patient stated for the past 3-4 days she has been having increasing abdominal pain with abdominal distention. She was feeling nauseated and had episodes of emesis at home. She denied any hematemesis, melena, hematochezia. Patient was previously hospitalized in [facility] around one month ago secondary to colitis. GI was consulted during admission and patient underwent colonoscopy with findings showing severe inflammation of the entire colon concerning for pancolitis. She was treated with IV steroids and and was to start patient on Remicade as outpatient. She denied any fever, chills, diarrhea. She was going to follow up with GI as outpatient on 07/26/24 but had worsening pain which caused her to come to the hospital for further evaluation. Labs in the ED were notable for white count of 10.3, hemoglobin was 12.8, platelet count was 363 K, sodium was 138, potassium was 2.8, creatinine is 1.0, blood glucose was 269, lactic acid on presentation was 8.[address] abdomen pelvis which showed free intraperitoneal air concerning for bowel perforation. There is a anterior ventral wall hernia with bowel content and air collection and fat stranding concerning for bowel perforation. Her colon was also noted to be inflamed. CT was performed without contrast. 07/26 BP 135/83, tachycardic 102, saturating 100% 2 L nasal cannula. CBC shows hemoglobin 11.0, hematocrit 35.9, WBC 18.8, platelet count of 203. Sodium 141, potassium 3.7, BUN of 29, creatinine slightly worse today at 1.2. ABG with pH 7.51, pCO2 of 28, PO2 62.6, bicarb of 22.5. Serology to include influenza, SARS and group A negative. Results of chest x-ray pending. Patient is scheduled to be taken to the OR today. 07/27 the patient remains admitted to the intensive care unit, intubated, on mechanical ventilation, status post exploratory laparotomy, postoperative day one, case discussed with the RN, patient on propofol, Jose Armando-Synephrine, wound VAC to the abdomen in place, noted to have right IJ line in place. Getting broad- spectrum IV antibiotics. Blood pressure 130/79, heart rate of 83, saturating 100% on mechanical ventilation, FiO2 40%. Leukocytosis is worse today at 28.1, drop in hemoglobin to 9.7, hematocrit 30.8, with a platelet count of 148. Potassium level 3.6, magnesium 1.6. Lactic acid from 8.2 down to 1.8 ABG with pH 7.4, pCO2 34, PO2 145, bicarb of 20. Chest x-ray shows bilateral lower lung infiltrates. Family at Bedside, updated 07/28 the patient has been seen and examined in the intensive care unit, she remains intubated, mechanical ventilation, on fentanyl, propofol and Jose Armando- Synephrine, getting broad-spectrum antibiotics, BP 112/84, afebrile, saturating 100% on mechanical ventilation, FiO2 40%. CBC with a hemoglobin 8.4, hematocrit 27.8, WBC of 16.3, platelet count of 89. Patient is status post exploratory laparotomy with drainage of intra-abdominal abscess/ventral hernia repair/small- bowel resection/NS of adhesions/left open and wound VAC on 07/23 05/28 by General surgery. Results of septic workup reviewed, Gram-negative rods. Patient with a possible ischemic colitis, plan to take the patient back to the operating room for further exploration. 07/29 Pt seen at bedside, no acute events overnight. She is s/p ex-lap with cholecystectomy. Currently on pressors, will wean as able. Remains intubated, PEEP 5, FiO2 30%, will continue with daily sedation vacations. She is mildly tachycardic. She is NPO, continue TPN per general surgery. WBC increased from 16.3 up to 16.8, Hgb improved from 8.4 up to 8.6, platelets decreased from 89 do wn to 76 07/30 Pt seen at bedside, no acute events overnight. She is s/p ex-lap with small bowel resection, appendectomy and drainage of intraabdominal abscess with wound vac post op day 4, repeat ex-lap with cholecystectomy, repair of left flank and ventral hernias post op day 2. Currently on pressors, will wean as able. Remains intubated, PEEP 5, FiO2 30%, she was on sedation vacation, in no acute distress, possible extubation today, will defer to critical care. She is NPO, continue TPN per general surgery. WBC improved from 16.8 down to 10.6, Hgb stable at 8.3, similar to yesterday, platelets improved from 76 up to 90, remai nder of her labs are relatively unremarkable. 07/31 patient seen at bedside, no acute events overnight. She is status post ex lap with small-bowel resection, appendectomy and drainage of intra-abdominal abscess with wound VAC postop day five, repeat ex lap with cholecystectomy, repair of left flank and ventral hernias postop day three. She has been successfully extubated, we will continue to try and wean pressors. Hemoglobin stable at 7.2, similar to yesterday, platelets decreased from 119-98, potassium mildly low at 3.2, we will be repleted according to protocol, remainder of her labs are relatively unremarkable. 08/02 patient seen at bedside, no acute events overnight. She is status post ex lap with small-bowel resection, appendectomy and drainage of intra-abdominal abscess with wound VAC postop day 6 repeat ex lap with cholecystectomy, repair of left flank and ventral hernias postop day 4. She has been successfully extubated, and weaned off pressors. She was transfused yesterday, Hgb improved from 6.9 up to 9.7, platelets improved to 166, potassium mildly low at 3.2, we will be repleted according to protocol, remainder of her labs are relatively unremarkable. She continues on TPN, diet to be addressed by general surgery. Only complaint is continued xuan-incisional pain 08/03 patient seen at bedside, no acute events overnight. At bedside she is in no acute distress, she has no complaints. She is status post ex lap with small- bowel resection, appendectomy and drainage of intra-abdominal abscess with wound VAC postop day 7 repeat ex lap with cholecystectomy, repair of left flank and ventral hernias postop day 5. WBC increased from 8.0 up to 27.1, this seemed to be and anomaly so a repeat CBC was ordered and WBC increased again to 34.4. Patient has been bolused 1 L of LR, repeat lactic acid was ordered and was mildly elevated at 2.5, wounds were examined at bedside and found to be clean dry and intact with no drainage or erythema. The BYRON drains are still draining serosanguineous fluid there does not appear to be sick succus suggesting bowel perforation. Discussed case with General surgery and Infectious Disease, we agreed to order a CT scan of the abdomen/pelvis to determine if there is a new abscess forming. Patient has not had watery bowel movements to suggest C diff and she is already on fluconazole. Hemoglobin increased from 8.7 up to 11.2, remainder of her labs are relatively unremarkable. Antibiotics were adjusted to Zyvox and meropenem. Further recommendations per Infectious Disease and General surgery. 08/04 patient seen at bedside, no acute events overnight. She has no complaints at bedside, reports her pain has improved today. She was made NPO yesterday after she vomited, we will resume clear liquid diet per General surgery recommendations. She is hemodynamically stable saturating well on room air, her WBC improved from 34.4 down to 30.8, hemoglobin decreased from 11.2 down to 8.6, potassium decreased from 4.1 down to 3.2, remainder of her labs are relatively unremarkable. Pt has been referred for LTAC, follow up with case management 08/05 patient is seen and examined, comfortable in bed, following commands, nutri tional support via TPN, BP 123/75, heart rate of 103, afebrile, saturating 97% room air. CBC shows a hemoglobin of 7.7, hematocrit 24.6, WBC 23.2, platelet count of 266. Sodium 137, potassium 3.4, BUN of 49, creatinine 0.7. The patient remains NPO. We will recheck CBC, transfuse 1 unit of PRBC if hemoglobin less than seven, replace electrolytes IV per protocol, continue to follow surgical input and recommendation, pending LTAC. Patient to continue broad-spectrum IV antibiotics with the meropenem, linezolid. Family at bedside, updated 08/06 the patient has been seen and examined during rounding, during my visit physical therapy evaluated the patient, noted to have swollen to the left upper extremity at the site of the PICC line. The patient remains hemodynamically stable, BP 120/78, afebrile, saturating normal on room air. Case discussed with the RN, TPN discontinued yesterday, patient is started on clear liquid diet. WBC still elevated 25.7, hemoglobin 8.7, hematocrit 27.1, platelet count of 313. We will follow repeat CMP today as potassium insulin drip 0.4 with magnesium 1.7. We will discuss discharge plan with case management, patient may benefit from discharge to LTAC as the patient with persistent leukocytosis and getting broad-spectrum IV antibiotics with meropenem and linezolid IV. We will request speech therapy to evaluate the patient. Per discussion with the RN the patient had low blood glucose in the 50s today, we will hold Lantus, continue only sliding scale, patient with a Troy catheter, we will do bladder training, Doppler of the left upper extremity ordered. at bedside, updated. 08/07 the patient has been seen and examined, remains comfortably in bed, patient remains admitted to the medical floor, remains hemodynamically stable, blood pressure 140/89, afebrile, saturating normal on room air. Yesterday she was noted to have swollen to the left arm with a PICC line , a Doppler was done, no evidence of deep venous thrombosis. Left arm kept elevated, less swelling noted today. TPN discontinued and patient started on clear liquid diet, speech therapy consulted, patient is started on GI soft diet. Leukocytosis today improving, 12.9, hemoglobin dropped to 7.5, hematocrit 24.2, potassium 3.5, magnesium 2.0. We will give potassium chloride 40 mEq p.o. x1, serial CBC q.8 hours, transfuse 1 unit of PRBC if hemoglobin less than seven, we will check stool occult blood. at bedside, updated. 08/08 patient is seen and examined at bedside, case discussed with the RN, no acute events overnight, blood pressure 156/86, heart rate of 102, afebrile, saturating normal on room air. Sodium 141, potassium 3.5, BUN of 26, 0.9, magnesium 1.7, we will give magnesium sulfate 2 g IV x1, follow CBC, transfuse as needed. 08/09 patient remains admitted to the medical floor, remains hemodynamically stable, blood pressure 134/70, afebrile, saturating normal on room air. H emoglobin has remained stable at 7.4, no signs of active bleeding, melena, no hematochezia, no hematemesis, no hematuria. Patient remains on GI soft diet, tolerating well. Case management has been consulted, pending insurance approval [facility]. REVIEW OF SYSTEMS 12 point ROS negative unless noted in HPI PHYSICAL EXAM GENERAL APPEARANCE: Patient intubated, on mechanical ventilation. NEUROLOGICAL: Cranial nerves II-XII grossly intact. Motor is 5/5 in bilateral upper and lower extremities proximal to distal. No sensory deficits. HEENT: Face is symmetric. Pupils are equal and reactive. Extraocular movements are intact. NECK: Supple. No JVD. No thyromegaly. No submental, submandibular, pre- /postauricular, occipital or supraclavicular lymphadenopathy. CHEST: Normal chest expansion. No Telemetry. LUNGS: Absence of any rales, rhonchi or any wheezing. CARDIOVASCULAR: Regular. S1 and S2 normal. No appreciable rubs, murmurs or gallops. ABDOMEN: Abdominal wound VAC in place : Deferred. No Troy. EXTREMITIES: Non-edematous and not cyanotic. No clubbing. Good capillary refill. SKIN: No skin breakdown. Vital Signs (last 8hr) Date Time Temp Pulse Resp B/P (MAP) Pulse Ox O2 Delivery O2 Flow Rate FiO2 08/09/24 06:31 18 N/A Room Air 21 08/09/24 06:31 88 18 08/09/24 04:26 97.5 83 19 124/79 95 Room Air 08/09/24 01:30 98.2 87 18 113/80 94 Room Air LABS: Laboratory: Test 08/09/24 06:15 08/09/24 05:22 Range/Units White Blood Count 7.3 4.8-10.8 K/uL Red Blood Count 2.80 L 4.00-5.50 MIL/uL Hemoglobin 7.4 L 12.0-16.0 g/dL Hematocrit 24.5 L 36-48 % Mean Corpuscular Volume 87.5 79-99 fL Mean Corpuscular Hemoglobin 26.4 L 27.0-33.0 pg Mean Corpuscular Hemoglobin Concent 30.2 L 32.0-36.0 g/dL Red Cell Distribution Width 17.3 H 11.0-15.5 % Platelet Count 376 130-400 K/uL Mean Platelet Volume 10.6 H 7.5-10.5 fL Nucleated Red Blood Cells 0.0 0.0-0.19 % Sodium Level 141 136-145 mmol/L Potassium Level 3.7 3.5-5.1 mmol/L Chloride Level 105 101-111 mmol/L Carbon Dioxide Level 29 21-32 mmol/L Blood Urea Nitrogen 27 H 7-18 mg/dL Creatinine 1.2 H 0.5-1.0 mg/dL Glomerular Filtration Rate Calc 52 >90 mL/min Random Glucose 109 H 70-105 mg/dL Total Calcium 8.6 8.5-10.1 mg/dL Magnesium Level 2.10 1.80-2.40 mg/dL Total Bilirubin 0.4 0.2-1.0 mg/dL Aspartate Amino Transf (AST/SGOT) 23 10-37 U/L Alanine Aminotransferase (ALT/SGPT) 40 12-78 U/L Alkaline Phosphatase 391 H 50-136 U/L Total Protein 5.0 L 6.0-8.3 g/dL Albumin 1.3 L 3.5-5.0 g/dL Whole Blood Glucose 111 H 70-110 MG/DL Current Medications Medications (Trade) Dose Ordered Sig/Alexandra Route PRN Reason Start Time Stop Time Status Last Admin Dose Admin Acetaminophen (TYLenol 325MG TAB) 650 mg Q4H PRN PO TEMPERATURE GREATER THAN 101.5 08/06/24 23:30 09/05/24 23:29 08/07/24 08:16 650 MG Acetaminophen (TYLenol 325MG TAB) 650 mg Q4H PRN PO PAIN LEVEL 1 TO 3 08/09/24 05:00 09/08/24 04:59 08/09/24 04:59 650 MG Albumin Human 100 ml @ 50 mls/hr AD IV 07/28/24 08:00 07/31/24 07:59 DC Cefepime HCl (MAXipime 2 gm vial) 2 gm Q24H IVPB 07/26/24 22:00 07/27/24 14:55 DC 07/26/24 22:54 2 GM Dexmedetomidine/ Sodium Chloride (PRECEdex 400MCG/ 100ML-NS) 400 mcg PROTOCOL PRN IV agitation 07/29/24 14:00 08/03/24 13:31 DC 07/30/24 01:18 400 MCG Dextrose (D50w) 50 ml AD PRN IV HYPOGLYCEMIA PROTOCOL 07/27/24 16:00 08/26/24 15:59 08/07/24 00:07 50 ML Enoxaparin Sodium (Lovenox) 40 mg DAILY SQ 08/07/24 09:00 09/06/24 08:59 08/09/24 08:59 40 MG Famotidine (Pepcid 20mg Vial) 20 mg Q24H IV 07/25/24 21:00 08/24/24 20:59 08/08/24 20:38 20 MG Fat Emulsion Intravenous 250 ml @ 42 mls/hr QMOFR IV 07/29/24 09:00 08/05/24 16:31 DC 08/05/24 09:35 42 MLS/HR Fentanyl Citrate 100 ml @ 0 mls/hr PROTOCOL IV 07/26/24 13:30 07/27/24 12:04 DC Fentanyl Citrate 100 ml @ 0 mls/hr PROTOCOL IV 07/27/24 12:30 07/29/24 13:42 DC 07/29/24 02:03 5 MLS/HR Fentanyl/Sodium Chloride 250 ml @ 0.1 mls/hr PROTOCOL IV 07/27/24 12:00 07/27/24 12:05 DC Fluconazole/ Sodium Chloride 100 ml @ 100 mls/hr Q24H IV 07/26/24 13:30 08/25/24 13:29 08/08/24 12:17 100 MLS/HR Furosemide (LASix 20MG VIAL) 20 mg Q8H IV 07/28/24 15:30 08/27/24 15:29 08/09/24 06:09 20 MG Glucagon (Glucagon 1mg Kit) 1 mg AD PRN IM HYPOGLYCEMIA PROTOCOL 07/27/24 16:00 08/26/24 15:59 Hydralazine HCl (APRESOLine 20MG INJ) 5 mg Q6H PRN IV ADMINISTER FOR SBP > 160 08/08/24 12:30 09/07/24 12:29 Hydromorphone HCl (DiLAUDid 0.5MG INJ) 0.5 mg Q4H PRN IVP SEVERE PAIN (7-10) 07/29/24 14:00 08/03/24 13:59 DC 08/02/24 11:44 0.5 MG Insulin Glargine (LANtus 100 UNITS/ML 10 ML VIAL) 5 units HS SQ 07/27/24 21:00 07/29/24 09:47 DC 07/28/24 20:48 5 UNITS Insulin Glargine (LANtus 100 UNITS/ML 10 ML VIAL) 15 units BID SQ 07/29/24 21:00 08/06/24 12:06 DC 08/05/24 21:42 15 UNITS Insulin Glargine (LANtus 100 UNITS/ML 10 ML VIAL) 15 units HS SQ 07/29/24 21:00 07/29/24 13:43 DC Insulin Human Regular (humuLIN R 100 UNIT/ML 3ML) INSULIN SLIDING SCAL... ACHS SQ 08/08/24 21:00 09/07/24 20:59 Insulin Human Regular (humuLIN R 100 UNIT/ML 3ML) INSULIN SLIDING SCAL... Q6H6 SQ 07/26/24 00:00 08/08/24 19:44 DC 08/08/24 18:45 3 UNIT Ipratropium [place] (AtrovENT UD) 0.5 mg [id number] IH 07/30/24 18:00 08/29/24 17:59 08/09/24 06:34 0.5 MG Linezolid 300 ml @ 150 mls/hr Q12H IV 08/03/24 13:00 08/13/24 12:59 08/09/24 00:13 150 MLS/HR Magnesium Sulfate 50 ml @ 0 mls/hr PROTOCOL IV 08/06/24 13:00 08/08/24 12:12 DC Magnesium Sulfate 50 ml @ 0 mls/hr PROTOCOL IV 08/08/24 12:30 09/07/24 12:29 08/08/24 18:34 0 MLS/HR Magnesium Sulfate 50 ml @ 0 mls/hr PROTOCOL PRN IV hypomagnesemia 07/25/24 18:00 08/06/24 17:19 DC 08/06/24 10:01 0 MLS/HR Meropenem (Merrem 1gm) 1 gm Q12H IVPB 07/27/24 15:30 08/03/24 03:31 DC 08/03/24 03:31 1 GM Meropenem (Merrem 1gm) 1 gm Q12H IVPB 08/03/24 15:30 08/10/24 03:31 08/09/24 02:39 1 GM Metoprolol Tartrate (loprESSOR) 2.5 mg Q12H9 IV 07/31/24 21:00 08/30/24 20:59 08/08/24 20:38 2.5 MG Metoprolol Tartrate (loprESSOR) 25 mg BID PO 08/08/24 12:30 09/07/24 12:29 08/09/24 08:59 25 MG Midazolam HCl 50 ml @ 0 mls/hr PROTOCOL IV 07/26/24 13:30 07/29/24 13:42 DC Nystatin (MycoSTATin 30 GM CREAM) 1 APPL BID TP 07/31/24 21:00 08/30/24 20:59 08/09/24 09:02 1 APPL Ondansetron HCl (zoFRAN 4MG INJ) 4 mg Q6H PRN IVP NAUSEA/VOMITING 07/25/24 18:00 08/24/24 17:59 08/03/24 15:32 4 MG Pharmacy Profile Note (Lace Assessment) 1 each AD MISC 07/27/24 15:30 07/27/24 15:14 DC Pharmacy Profile Note (Lace Assessment) 1 each AD MISC 08/03/24 11:00 08/03/24 11:10 DC Pharmacy Profile Note (Pharmacy Communication) 1 each ONCE MISC 07/27/24 15:00 07/28/24 07:29 DC Pharmacy Profile Note (Pharmacy Communication) 1 each ONCE MISC 08/03/24 11:00 08/03/24 11:47 DC Pharmacy Profile Note (Pharmacy Communication) 1 each ONCE MISC 08/03/24 11:00 08/03/24 11:53 DC Phenol (Sore Throat [place]) 1 spry Q4H PRN PO SORE THROAT 08/01/24 05:00 08/31/24 04:59 08/03/24 10:19 1 SPRY Phenylephrine HCl 100 mg/Sodium Chloride 250 ml @ 0 mls/hr AD PRN IV TITRATE 07/26/24 13:30 08/03/24 13:31 DC 07/30/24 04:41 9.52 MLS/HR Piperacillin Sod/ Tazobactam Sod (Zosyn 3.375gm+NS 50ml) 3.375 gm Q12H IV 07/25/24 20:00 07/25/24 17:27 DC Piperacillin Sod/ Tazobactam Sod (Zosyn 3.375gm+NS 50ml) 3.375 gm Q8H IVPB 07/25/24 19:00 07/26/24 21:40 DC 07/26/24 19:40 3.375 GM Piperacillin Sod/ Tazobactam Sod (Zosyn 3.375gm+NS 50ml) 3.375 gm Q8H IVPB 07/25/24 20:00 07/25/24 18:49 DC Potassium Chloride 100 ml @ 50 mls/hr AD PRN IV POTASSIUM PROTOCOL 07/25/24 18:00 08/24/24 17:59 08/06/24 16:20 50 MLS/HR Potassium Chloride (K-Dur/Klor-Con 20meq) 20 meq AD PRN PO POTASSIUM PROTOCOL 08/06/24 12:30 09/05/24 12:29 08/08/24 12:17 20 MEQ Potassium Chloride (KCl 10% Elixir 20meq/15ml) 20 meq AD PRN PO POTASSIUM PROTOCOL 08/06/24 12:30 09/05/24 12:29 08/06/24 12:49 20 MEQ Propofol 100 ml @ 0 mls/hr AD PRN IV TITRATE 07/26/24 13:30 07/29/24 13:42 DC 07/29/24 02:49 12.2 MLS/HR Sodium Chloride 1,000 ml @ 50 mls/hr Q20H IV 08/04/24 11:30 08/06/24 12:06 DC 08/06/24 09:10 50 MLS/HR Sodium Chloride 1,000 ml @ 125 mls/hr Q8H IV 07/25/24 17:30 07/27/24 16:01 DC 07/27/24 07:58 125 MLS/HR Sodium Chloride (NS 50ml) 50 ml AD IV 07/25/24 17:00 07/25/24 17:29 DC Vancomycin HCl 250 ml @ 125 mls/hr Q12H IV 07/31/24 04:00 08/02/24 04:37 DC 08/01/24 03:10 125 MLS/HR Vancomycin HCl 250 ml @ 125 mls/hr Q12H IV 08/02/24 05:00 08/03/24 11:09 DC 08/02/24 17:22 125 MLS/HR Vancomycin HCl 250 ml @ 125 mls/hr Q24H IV 07/26/24 17:00 07/27/24 15:09 DC 07/26/24 19:55 125 MLS/HR Vancomycin HCl (Vancomycin Protocol) 1 each AD IV 07/25/24 17:00 07/27/24 14:55 DC Vancomycin HCl (Vancomycin Protocol) 1 each AD IV 07/30/24 15:00 08/03/24 11:09 DC Wound Care/ Dressing Products (Venelex Ointment) BID TP 07/31/24 21:00 08/30/24 20:59 08/09/24 09:01 1 GM DIAGNOSTICS / RADIOLOGY: [ ] ASSESSMENT: Septic shock requiring pressors Bacterial peritonitis POA Bowel perforation w/ [id number] S/P exploratory laparotomy with drainage of intra-abdominal abscess/ventral hernia repair/small-bowel resection/NS of adhesions/left open and a wound VAC on 07/26/24 per High risk for ischemic bowel-POA Intractable abdominal pain-POA Acute hypokalemia-POA this is Dehydration-POA SHARMILA not POA Lactic acidosis-POA Hyperglycemia 2/2 uncontrolled diabetes mellitus Primary HTN HX of colitis HX of inflammatory bowel disease (Crohn's Disease) HX of cardiac arrest HX of BLE cellulitis Recent hospitalization for UTI with outpatient Zosyn antibiotic \ PLAN: Patient remains admitted to the medical floor Patient on GI soft diet, tolerating well To follow CBC transfuse as needed Continue to follow surgical input and recommendation Doppler of the left lower extremity negative for DVT Case management consulted, pending acceptance to [place], pending insurance approval. NEURO: Minimize central acting medications as possible. Fall Precautions. Well lighted room through the day and minimize interruptions through the night to prevent acute delirium. PULMONARY: Supplemental 02 as needed BiPAP as necessary, for respiratory distress Titrate Fio2 to keep Spo2 > or = 90% DuoNebs and CPT as needed IS hourly while awake for pulmonary hygiene prn Out of bed to chair as tolerated Maintain aspiration precautions at all times CARDIOVASCULAR: Follow hemodynamics. Vital signs per facility protocol GI & NUTRITION: Continue nutritional support Aspirations precautions Prokinetic agents and laxatives as needed KIDNEYS & ELECTROLYTES: Strict monitoring of intake and output Daily weights Avoid nephrotoxic agents Monitor electrolytes and replace as needed Goal urine output of 30mL/hr or 0.5mL/kg/hr Medications to be dosed according to renal function. Avoid contrast if possible ENDOCRINE: Maintain blood glucose between 100-180 at all times. Insulin sliding scale for blood glucose management Hypoglycemia and hyperglycemia protocol in place INFECTIOUS DISEASE: Trend temperature, WBC and procalcitonin level Follow cultures, deescalate antibiotics as soon as possible. Panculture if new onset fever HEMATOLOGY & COAGULATION: Monitor H&H. Keep Hgb > 7 Transfuse 1 unit of PRBC for Hgb < 7 Transfuse 1 pack of platelets of platelets < 20, 000 Watch for any signs and symptoms of bleeding SKIN: Pressure ulcer prevention per facility protocol Specialty mattress as needed ORTHO/REHAB Continue PT/OT PRN: MEDICATIONS Tylenol 650 mg po every 4 hrs for fever zofran 4 mg IV every 6 hrs for n/v Hydralazine 5 mg IV every 4 hrs systolic pressure > 160 bowel regiment: lactulose 20 gm PO BID PRN constipation Supportive measures: Continue GI and DVT prophylaxis Disposition: Pending improvement in clinical condition All questions answered time spent: > 35 min MICKEY FINNEY MD Aug 09, 2024 09:20
--- NOTE | 2024-08-09 20:50 | PN ---
INFECTIOUS DISEASE PROGRESS NOTE Date of Service: Aug 09, 2024 SUBJECTIVE: Patient was seen and examined at bedside in room 326. Patient is awake, alert and oriented x 3. Patient is very weak and continues with very poor performance with physical therapy. Contributing to her weakness could also be related to a low hemoglobin of 7.4. No fever, temperature is 97.5. Will continue on Meropenem, linezolid and fluconazole. Pending insurance approval to [facility]. PHYSICAL EXAM EYES: Anicteric. Pupils equal and reactive. HENT: No oral thrush seen, moist Oral mucosa. NECK: Supple, no JVD or thyromegaly. LUNGS: Good air entry. No rales, no rhonchi. CARDIOVASCULAR: S1, S2 regular. No murmur heard. ABDOMEN: Soft, non tender, bowel sounds present, no organomegaly. Abdominal surgical incision with two BYRON drains. CENTRAL NERVOUS SYSTEM: Awake, alert and oriented x3. SKIN: No rashes, no swelling. LYMPHATICS: No peripheral lymphadenopathy. MUSCULOSKELETAL: No joint swelling, erythema or tenderness. Debility. EXTREMITIES: No cyanosis or clubbing. BACK: No deformity, no pressure ulcer. GENITOURINARY: No dysuria or hematuria. Troy catheter. Vital Sign (Last 12 Hours) 08/09/24 08/09/24 08/09/24 08/09/24 09:00 11:11 11:23 12:00 Temp 97.5 Pulse 85 81 Resp 18 18 19 B/P (MAP) 143/88 Pulse Ox 95 94 O2 Delivery Room Air* N/A Room Air Room Air O2 Flow Rate 0 FiO2 21 21 21 08/09/24 08/09/24 08/09/24 16:00 19:39 19:39 Temp 97.5 Pulse 92 88 88 Resp 20 17 17 B/P (MAP) 132/82 Pulse Ox 97 O2 Delivery Room Air N/A Room Air FiO2 21 21 l Intake & Output (last 24hrs) 08/08/24 08/08/24 08/09/24 15:00 23:00 07:00 Intake Total 800 ml 400 ml 590.0 ml Output Total 25 ml Balance 800 ml 400 ml 565.0 ml LABS: Laboratory: Test 08/09/24 19:54 08/09/24 15:55 08/09/24 06:15 Range/Units Whole Blood Glucose 163 H 70-110 MG/DL Bedside Glucose Comment Notified Nurse White Blood Count 7.3 4.8-10.8 K/uL Red Blood Count 2.80 L 4.00-5.50 MIL/uL Hemoglobin 7.4 L 12.0-16.0 g/dL Hematocrit 24.5 L 36-48 % Mean Corpuscular Volume 87.5 79-99 fL Mean Corpuscular Hemoglobin 26.4 L 27.0-33.0 pg Mean Corpuscular Hemoglobin Concent 30.2 L 32.0-36.0 g/dL Red Cell Distribution Width 17.3 H 11.0-15.5 % Platelet Count 376 130-400 K/uL Mean Platelet Volume 10.6 H 7.5-10.5 fL Nucleated Red Blood Cells 0.0 0.0-0.19 % Sodium Level 141 136-145 mmol/L Potassium Level 3.7 3.5-5.1 mmol/L Chloride Level 105 101-111 mmol/L Carbon Dioxide Level 29 21-32 mmol/L Blood Urea Nitrogen 27 H 7-18 mg/dL Creatinine 1.2 H 0.5-1.0 mg/dL Glomerular Filtration Rate Calc 52 >90 mL/min Random Glucose 109 H 70-105 mg/dL Total Calcium 8.6 8.5-10.1 mg/dL Magnesium Level 2.10 1.80-2.40 mg/dL Total Bilirubin 0.4 0.2-1.0 mg/dL Aspartate Amino Transf (AST/SGOT) 23 10-37 U/L Alanine Aminotransferase (ALT/SGPT) 40 12-78 U/L Alkaline Phosphatase 391 H 50-136 U/L Total Protein 5.0 L 6.0-8.3 g/dL Albumin 1.3 L 3.5-5.0 g/dL ASSESSMENT: Intestinal perforation, s/p closure of exploratory laparotomy on 07/28/2024. Intra-abdominal abscess with polymicrobial infection, status post open drainage 07/26/2024. Peritonitis. Leukocytosis, resolved. Anemia requiring blood transfusion. Respiratory failure requiring intubation, s/p extubated. History of colitis. Debility. PLAN: Continue linezolid IV. Continue Meropenem. Continue fluconazole. Continue GI prophylaxis. Continue physical therapy. Continue Nutritional support as recommended by General surgery. Pending insurance approval to [facility] for rehab and IV antibiotics. This case was reviewed and discussed with my supervising physician and the above assessment and plan was formulated and agreed upon. ATTESTATION BY PHYSICIAN I have seen and examined the patient. I reviewed the documentation, medical decision making, and treatment plan as noted by the mid-level provider above. I agree with the findings and plan of care. MILLIE CHATTERJEE MD, [facility] Aug 09, 2024 20:50
--- NOTE | 2024-08-09 20:51 | PN ---
[facility] PROGRESS NOTE Date Patient Seen: Aug 09, 2024 Time of Visit: 14:46 Supervising Physician:DR. JENNI RAMIREZ Primary Care Physician: [Dr. Villarreal of [facility] ] Outpatient Specialists: [GI: Dr. Solitario ] Inpatient Consults: [Dr. Quintero of surgery ] PROBLEM LIST: Septic shock from below requiring pressors,resolving Bacterial peritonitis POA + Enterococcus Raffinosus and Klebsiella pneumoniae Bowel perforation w/ Pneumoperitoneum-POA S/P exploratory laparotomy with drainage of intra-abdominal abscess/ventral hernia repair/small-bowel resection/lysis of adhesions/left open and a wound VAC on 07/26/24 per Removal of previously placed ABThera wound VAC & Placement of Seprafilm adhesion barrier 07/28/24 per Incarcerated ventral hernia POA Primary repair ventral hernia 07/28/24 Left Lateral Hernia POA Primary repair left flank hernia 07/28/24 Acute cholecystitis, POAopen cholecystectomy on 07/28/24 Acute hypokalemia-POA Dehydration-POA SHARMILA not POA Lactic acidosis-POA Hyperglycemia 2/2 uncontrolled diabetes mellitus Primary HTN HX of colitis HX of inflammatory bowel disease (Crohn's Disease) Recent hospitalization for UTI with outpatient Zosyn antibiotic with Dr. Diaz INTERVAL HISTORY: This is Day 1 open cholecystectomy with removal of previously placed ABTHera wound VAC, placement of ceftriaxone home adhesion barrier, primary repair of left flank hernia and repair of ventral hernia per . no further plans of taking pt back to OR per report. Per RN no major overnight event. Patient is on sedation vacation this morning still 117 to wake up grimaces to movement. Will attempt CPAP this morning. Weaning Jose Armando-Synephrine currently yesterday 0.1 mcg/kg per minute. Lines: Right IJ Cordis, arterial line, OG tube, ET tubes, Troy catheter, DP is. Left BYRON drain 320 mL with red BYRON draining 120 mL. She remains NPO on TPN at 75 mL/hour. Urine output of 3.6 L,-1.9 L balance Patient's problems has been updated of plan of care and verbalizes understanding. He continues IV antibiotics. Intra-abdominal fluid culture growing positive for Klebsiella pneumoniae and Enterococcus Raffinosus. White count is 9.8 similar to yesterday, H&H stable 8.61/28.5 platelet count trending down 76 K today. Creatinine of 0.7 with GFR of 99 kidneys are improved. Magnesium of 1.7 covered per protocol. Blood sugar of 311 mg/dL insulin adjusted. X-ray stable. ET tube 4.4 cm with the ld. No pneumothorax. 07/30/2024: At the time of my evaluation, the patient was lying in bed. She remains intubated and on mechanical vent support. On the monitor, the patient was marginally tachycardic, tachypneic and blood pressure within normal ranges. Laboratory data today showed improved WBC down to 10.6 there was no profound anemia or thrombocytopenia. Chemistry panel showed no major electrolyte derangement or renal parameter changes. No new microbiology data for review today. Chest imaging showed bilateral pneumonic infiltrates and cardiomegaly. No other complaint. 07/31/2024: At the time of my evaluation, the patient was lying in bed. Family member and staff nurse are present at the bedside. Per the staff nurse, no acute events overnight. On the monitor, the patient had no febrile events, no tachycardia or tachypnea. Blood pressure between normal range and she remains on nasal cannula for oxygen supplementation. Laboratory data today , showed no leukocytosis, there was significant anemia 7.3/23.5 and platelet count of 119. No chemistry was collected for today. Imaging for today still shows pulmonary vascular congestion and pneumonic infiltrates bilaterally. Troy catheter remains in place and patient had a documented urinary output of 2700 mL and a net balance of -28.0. No other complaint 08/01/2024: At the time of my evaluation, the patient was lying in bed. Staff nurse reports no acute events overnight. On the monitor, the patient is with borderline tachycardia, no tachypnea and normotensive. She remains on a nasal cannula for oxygen supplementation. Surgical site, is benign. BYRON drain x2 totaling 335 mL out voided output of 4800 mL over the past 24 hours with a net balance of -2585.1. Laboratory data today did show a drop in H&H to 7.1/23.4 and a platelet count of 111. Chemistry panel showed a potassium of 3.2, renal parameters were not of concern. No new microbiology data for review. Chest x- ray today showed bilateral pneumonic infiltrate and a right mid lung atelectasis. There was also borderline cardiomegaly. Currently, the patient remains on antibiotic coverage with meropenem, fluconazole and vancomycin. She is also on nutritional support with TPN. No other complaint. 08/02/2024: At the time of my evaluation, the patient was lying in bed. Staff nurse reports no acute events overnight. The patient is breathing on room air. On the monitor, parameters are unremarkable. Laboratory data showed a hemoglobin of 9.7 and hematocrit of 31.3. Platelet count 166. Chemistry panel was notable for a potassium of 3.2 otherwise unremarkable no new imaging for review today. Currently, the patient remains on TPN for nutritional support and is on antibiotic therapy with Merrem, vanco and fluconazole. No other c omplaint. 08/03 patient is evaluated at bedside. Her WBCs significantly increased to 27 then 34 up from eight yesterday. Her hemoglobin has remained stable at 11.2. No fever overnight. Her BYRON drain has normal serous fluid with minimal output since yesterday. She is pending a repeat CT abdomen. General surgery is aware, pending further recommendation. Patient states her pain is actually improved from yesterday. 08/04 patient was evaluated at bedside. She had two episodes of nonbloody emesis yesterday. She remains NPO today and continues on TPN. General surgery has ordered IV fluids. Her WBC his downtrending but still significantly elevated at 30. Patient states her pain is much decreased. No fever reported overnight. Continues on IV antibiotic. 08/05 patient is evaluated at bedside. Her WBCs downtrending currently 223. Hemoglobin is persistently decreasing, from 11.22 days ago to 7.7 today. No signs of bleeding per BYRON drain which has minimal normal serous fluid and Troy bag which has normal colored urine. Continues NPO with TPN. No current fever or abdominal pain. No nausea or vomiting. Continue to follow General surgery recommendation. 08/06 Patient seen and examined at the bedside, she is off TPN, he has no fever, chills, nausea or vomiting, No abdominal pain or diarrhea no new events plan is to repeat labs in am , advance on diet as tolerates. 08/07 Patient is awake, alert, well oriented, not in distress, started on oral intake, denies fever , chills, nausea or vomiting. No chest pain , no more IVF, case management making all arrangement for discharge with IV antibiotics , as per case management and Dr Diaz recommendation she is going to be discharge to [facility], from pulmonary stand point of view no further intervention at this moment, therefore plan is to signs off this case, do not hesitate to contact us if necessary. 08/08 Patient is awake, alert, well oriented, complaining of severe abdominal distention apparently , was not like that before she was transferred to the chair plan is to obtain KUB, we will follow up on results, as per family and patient her abdomen distended in less than 1 hour. 08/09 Patient seen and examined, awake,alert, abdomen distention resolved, KUB reviewed demonstrated normal gas pattern with no free air on examination no abdominal distention, BYRON on place , midline incision, no drainage ( purulent ) o no bleeding. REVIEW OF SYSTEMS: 12- point system review was carried out, pertinent positive documented above otherwise negative. PHYSICAL EXAM: GENERAL: Critically- ill appearing. HEENT: Sclera non icteric, moist mucosa pupils3 mm echo and sluggish NECK: Supple, no JVD, trachea midline right IJ Cordis LUNGS: Diminished breath sounds bilaterally. No wheezes HEART: Regular rate and rhythm. Normal S1 and S2, without murmurs ABD: Obese abdomen, mid abdomen dressing clean dry and intact. Bilateral BYRON present. No purulent discharge o bleeding from surgical wound EXT: No clubbing cyanosis or edema. Troy in situ NEURO: Awake, alert and follows commands. Vital Signs (last 8hr) Date Time Temp Pulse Resp B/P (MAP) Pulse Ox O2 Delivery O2 Flow Rate FiO2 08/09/24 20:44 98.1 96 20 122/80 98 Room Air 08/09/24 19:39 88 17 N/A Room Air 21 08/09/24 19:39 88 17 08/09/24 16:00 97.5 92 20 132/82 97 Room Air 21 LABS: Hematology Labs: Test 08/09/24 06:15 Range/Units White Blood Count 7.3 4.8-10.8 K/uL Red Blood Count 2.80 L 4.00-5.50 MIL/uL Hemoglobin 7.4 L 12.0-16.0 g/dL Hematocrit 24.5 L 36-48 % Mean Corpuscular Volume 87.5 79-99 fL Mean Corpuscular Hemoglobin 26.4 L 27.0-33.0 pg Mean Corpuscular Hemoglobin Concent 30.2 L 32.0-36.0 g/dL Red Cell Distribution Width 17.3 H 11.0-15.5 % Platelet Count 376 130-400 K/uL Mean Platelet Volume 10.6 H 7.5-10.5 fL Nucleated Red Blood Cells 0.0 0.0-0.19 % Chemistry Labs: Test 08/09/24 19:54 08/09/24 15:55 08/09/24 06:15 Range/Units Whole Blood Glucose 163 H 70-110 MG/DL Bedside Glucose Comment Notified Nurse Sodium Level 141 136-145 mmol/L Potassium Level 3.7 3.5-5.1 mmol/L Chloride Level 105 101-111 mmol/L Carbon Dioxide Level 29 21-32 mmol/L Blood Urea Nitrogen 27 H 7-18 mg/dL Creatinine 1.2 H 0.5-1.0 mg/dL Glomerular Filtration Rate Calc 52 >90 mL/min Random Glucose 109 H 70-105 mg/dL Total Calcium 8.6 8.5-10.1 mg/dL Magnesium Level 2.10 1.80-2.40 mg/dL Total Bilirubin 0.4 0.2-1.0 mg/dL Aspartate Amino Transf (AST/SGOT) 23 10-37 U/L Alanine Aminotransferase (ALT/SGPT) 40 12-78 U/L Alkaline Phosphatase 391 H 50-136 U/L Total Protein 5.0 L 6.0-8.3 g/dL Albumin 1.3 L 3.5-5.0 g/dL DIAGNOSTICS / RADIOLOGY RESULTS: [ ] PLAN IS Physical therapy discharge per primary Lovenox 40 mg sq daily Discharge plan as per primary Sign off this case NEURO: Minimize central acting medications as possible. Maintain fall precautions, adequate lighting during the day PULMONARY: Supplemental 02 as needed. Maintain aspiration precautions at all times CARDIOVASCULAR: Follow hemodynamics. Vital signs per facility protocol GI & NUTRITION: Continue with nutritional support. Continue stool softeners and laxatives as needed. KIDNEYS & ELECTROLYTES: Strict monitoring of intake, output and overall fluid balance. Avoid nephrotoxic medications to the extent possible. Medications to be dosed according to renal function. Monitor electrolytes and replace as needed ENDOCRINE: Maintain blood glucose between 100-180 at all times. Hypoglycemia protocol in place INFECTIOUS DISEASE: Trend temperature, WBC and procalcitonin level Follow cultures, deescalate antibiotics as soon as possible. Panculture if new onset fever ONCOLOGY/HEMATOLOGY/COAGULATION: Monitor for s/s of bleeding Monitor hemoglobin, coagulation studies as needed SKIN: Pressure ulcer prevention per facility protocol Specialty mattress ORTHO/REHAB: Continue PT/OT Prophylaxis: Continue GI and DVT prophylaxis Code Status: Full Resuscitation Disposition: TBD ATTESTATION BY PHYSICIAN Documentation assistance provided by a scribe, information recorded by the scribe was done at my direction and has been reviewed and validated by me." JENNI RAMIREZ MD I personally scribed for JENNI RAMIREZ MD ([email or web address]) on 08/09/24 at 20:51. Electronically submitted by Jenelle Landeros ([email or web address]). JENNI RAMIREZ MD Aug 09, 2024 20:51
--- NOTE | 2024-08-09 21:00 | NUR ---
MEDS SHIFT ASSESSMENT DONE, PLEASE REFER TO CHART. DUE MEDS ADMINISTERED, TOLERATED WELL. KEPT RESTED AND COMFORTABLE IN BED. CALL LIGHT WITHIN REACH. FAMILY AT BEDSIDE.
[2024-08-10] VITALS (13 sets, daily range): BP systolic 118–137; BP diastolic 78–95; PULSE 82–94; RESP 18–21; TEMP 97.6–98.3; O2SAT 95–97
--- NOTE | 2024-08-10 00:14 | NUR ---
PAIN PT COMPLAINTS OF BACK PAINS. MEDICATED WITH TYLENOL PO. RE-POSITIONED COMFORTABLY IN BED. CALL LIGHT WITHIN REACH. WILL RE-ASSESS PT.
[2024-08-10 04:53] LABS: HEMATOCRIT 23.6 % (36-48); MEAN CORPUSCULAR HEMOGLOBIN 26.4 pg (27.0-33.0); MEAN CORPUSCULAR HGB CONC 30.9 g/dL (32.0-36.0); MEAN CORPUSCULAR VOLUME 85.5 fL (79-99); RED BLOOD CELL COUNT(AUTO) 2.76 MIL/uL (4.00-5.50); RED CELL DISTRIBUTION WIDTH 17.5 % (11.0-15.5); WHITE BLOOD COUNT (AUTO) 6.7 K/uL (4.8-10.8)
[2024-08-10 05:09] LABS: ALBUMIN 1.4 g/dL (3.5-5.0); BILIRUBIN,TOTAL 0.4 mg/dL (0.2-1.0); CREATININE 1.1 mg/dL (0.5-1.0); MAGNESIUM 1.8 mg/dL (1.80-2.40); POTASSIUM 3.4 mmol/L (3.5-5.1); TOTAL PROTEIN, SERUM 5.1 g/dL (6.0-8.3)
--- NOTE | 2024-08-10 06:20 | NUR ---
MEDS PT RE-POSITIONED COMFORTABLY IN BED. DUE MEDS ADMINISTERED, TOLERATED WELL. CALL LIGHT WITHIN REACH. FOR MORE CARE.
[2024-08-10] MEDS: PoTASSium chloRIDE 20MEQ ER 20 MEQ ERTAB PO ONE (10:18)
--- NOTE | 2024-08-10 11:49 | PN ---
[facility] PROGRESS NOTE Date Patient Seen: Aug 10, 2024 Time of Visit: 11:45 Supervising Physician: Dr Kearney Primary Care Physician: [Dr. Villarreal of [facility] ] Outpatient Specialists: [GI: Dr. Solitario ] Inpatient Consults: [Dr. Quintero of surgery ] PROBLEM LIST: Septic shock from below requiring pressors,resolving Bacterial peritonitis POA + Enterococcus Raffinosus and Klebsiella pneumoniae Bowel perforation w/ Pneumoperitoneum-POA S/P exploratory laparotomy with drainage of intra-abdominal abscess/ventral hernia repair/small-bowel resection/lysis of adhesions/left open and a wound VAC on 07/26/24 per Removal of previously placed ABThera wound VAC & Placement of Seprafilm adhesion barrier 07/28/24 per Incarcerated ventral hernia POA Primary repair ventral hernia 07/28/24 Left Lateral Hernia POA Primary repair left flank hernia 07/28/24 Acute cholecystitis, POAopen cholecystectomy on 07/28/24 Acute hypokalemia-POA Dehydration-POA SHARMILA not POA Lactic acidosis-POA Hyperglycemia 2/2 uncontrolled diabetes mellitus Primary HTN HX of colitis HX of inflammatory bowel disease (Crohn's Disease) Recent hospitalization for UTI with outpatient Zosyn antibiotic with Dr. Diaz INTERVAL HISTORY: This is Day 1 open cholecystectomy with removal of previously placed ABTHera wound VAC, placement of ceftriaxone home adhesion barrier, primary repair of left flank hernia and repair of ventral hernia per . no further plans of taking pt back to OR per report. Per RN no major overnight event. Patient is on sedation vacation this morning still 117 to wake up grimaces to movement. Will attempt CPAP this morning. Weaning Jose Armando-Synephrine currently yesterday 0.1 mcg/kg per minute. Lines: Right IJ Cordis, arterial line, OG tube, ET tubes, Troy catheter, DP is. Left BYRON drain 320 mL with red BYRON draining 120 mL. She remains NPO on TPN at 75 mL/hour. Urine output of 3.6 L,-1.9 L balance Patient's problems has been updated of plan of care and verbalizes understanding. He continues IV antibiotics. Intra-abdominal fluid culture growing positive for Klebsiella pneumoniae and Enterococcus Raffinosus. White count is 9.8 similar to yesterday, H&H stable 8.61/28.5 platelet count trending down 76 K today. Creatinine of 0.7 with GFR of 99 kidneys are improv ed. Magnesium of 1.7 covered per protocol. Blood sugar of 311 mg/dL insulin adjusted. X-ray stable. ET tube 4.4 cm with the ld. No pneumothorax. 07/30/2024: At the time of my evaluation, the patient was lying in bed. She remains intubated and on mechanical vent support. On the monitor, the patient was marginally tachycardic, tachypneic and blood pressure within normal ranges. Laboratory data today showed improved WBC down to 10.6 there was no profound anemia or thrombocytopenia. Chemistry panel showed no major electrolyte derangement or renal parameter changes. No new microbiology data for review today. Chest imaging showed bilateral pneumonic infiltrates and cardiomegaly. No other complaint. 07/31/2024: At the time of my evaluation, the patient was lying in bed. Family member and staff nurse are present at the bedside. Per the staff nurse, no acute events overnight. On the monitor, the patient had no febrile events, no tachycardia or tachypnea. Blood pressure between normal range and she remains on nasal cannula for oxygen supplementation. Laboratory data today , showed no leukocytosis, there was significant anemia 7.3/23.5 and platelet count of 119. No chemistry was collected for today. Imaging for today still shows pulmonary vascular congestion and pneumonic infiltrates bilaterally. Troy catheter remains in place and patient had a documented urinary output of 2700 mL and a net balance of -28.0. No other complaint 08/01/2024: At the time of my evaluation, the patient was lying in bed. Staff nurse reports no acute events overnight. On the monitor, the patient is with borderline tachycardia, no tachypnea and normotensive. She remains on a nasal cannula for oxygen supplementation. Surgical site, is benign. BYRON drain x2 totaling 335 mL out voided output of 4800 mL over the past 24 hours with a net balance of -2585.1. Laboratory data today did show a drop in H&H to 7.1/23.4 and a platelet count of 111. Chemistry panel showed a potassium of 3.2, renal parameters were not of concern. No new microbiology data for review. Chest x- ray today showed bilateral pneumonic infiltrate and a right mid lung atelectas is. There was also borderline cardiomegaly. Currently, the patient remains on antibiotic coverage with meropenem, fluconazole and vancomycin. She is also on nutritional support with TPN. No other complaint. 08/02/2024: At the time of my evaluation, the patient was lying in bed. Staff nurse reports no acute events overnight. The patient is breathing on room air. On the monitor, parameters are unremarkable. Laboratory data showed a hemoglobin of 9.7 and hematocrit of 31.3. Platelet count 166. Chemistry panel was notable for a potassium of 3.2 otherwise unremarkable no new imaging for review today. Currently, the patient remains on TPN for nutritional support and is on antibiotic therapy with Merrem, vanco and fluconazole. No other complaint. 08/03 patient is evaluated at bedside. Her WBCs significantly increased to 27 then 34 up from eight yesterday. Her hemoglobin has remained stable at 11.2. No fever overnight. Her BYRON drain has normal serous fluid with minimal output since yesterday. She is pending a repeat CT abdomen. General surgery is aware, pending further recommendation. Patient states her pain is actually improved from yesterday. 08/04 patient was evaluated at bedside. She had two episodes of nonbloody emesis yesterday. She remains NPO today and continues on TPN. General surgery has ordered IV fluids. Her WBC his downtrending but still significantly elevated at 30. Patient states her pain is much decreased. No fever reported overnight. Continues on IV antibiotic. 08/05 patient is evaluated at bedside. Her WBCs downtrending currently 223. Hemoglobin is persistently decreasing, from 11.22 days ago to 7.7 today. No signs of bleeding per BYORN drain which has minimal normal serous fluid and Troy bag which has normal colored urine. Continues NPO with TPN. No current fever or abdominal pain. No nausea or vomiting. Continue to follow General surgery recommendation. 08/06 Patient seen and examined at the bedside, she is off TPN, he has no fever, chills, nausea or vomiting, No abdominal pain or diarrhea no new events plan is to repeat labs in am , advance on diet as tolerates. 08/07 Patient is awake, alert, well oriented, not in distress, started on oral intake, denies fever , chills, nausea or vomiting. No chest pain , no more IVF, case management making all arrangement for discharge with IV antibiotics , as per case management and Dr Diaz recommendation she is going to be discharge to [facility], from pulmonary stand point of view no further intervention at this moment, therefore plan is to signs off this case, do not hesitate to contact us if necessary. 08/08 Patient is awake, alert, well oriented, complaining of severe abdominal distention apparently , was not like that before she was transferred to the chair plan is to obtain KUB, we will follow up on results, as per family and patient her abdomen distended in less than 1 hour. 08/09 Patient seen and examined, awake,alert, abdomen distention resolved, KUB reviewed demonstrated normal gas pattern with no free air on examination no abdominal distention, BYRON on place , midline incision, no drainage ( purulent ) o no bleeding. 08/10 - patient is seen sitting up in bed accompanied by her . Patient with no signs of acute distress. Patient is awake alert. Patient remains on room air with no signs of respiratory distress. Patient denies chest discomfort, chest pain, or dyspnea. No acute changes reported overnight. Patient continues with abdominal BYRON drain in place and as per chart patient had 30 mL output in the last 24 hours. Recommend continue incentive spirometry while awake, physical therapy. From pulmonary standpoint, patient is stable. We will sign off at this time. Thank you for allowing us to participate in the care of your patient. Please reconsult if any pulmonary issues arise. REVIEW OF SYSTEMS: 12- point system review was carried out, pertinent positive documented above otherwise negative. PHYSICAL EXAM: GENERAL: Critically- ill appearing. HEENT: Sclera non icteric, moist mucosa pupils3 mm echo and sluggish NECK: Supple, no JVD, trachea midline right IJ Cordis LUNGS: Diminished breath sounds bilaterally. No wheezes HEART: Regular rate and rhythm. Normal S1 and S2, without murmurs ABD: Obese abdomen, mid abdomen dressing clean dry and intact. Bilateral BYRON present. No purulent discharge o bleeding from surgical wound EXT: No clubbing cyanosis or edema. Troy in situ NEURO: Awake, alert and follows commands. Vital Signs (last 8hr) Date Time Temp Pulse Resp B/P (MAP) Pulse Ox O2 Delivery O2 Flow Rate FiO2 08/10/24 08:02 86 18 N/A Room Air 21 08/10/24 08:00 98.2 86 19 128/83 99 Room Air 21 08/10/24 06:56 83 18 08/10/24 04:44 97.5 83 19 135/86 96 Room Air LABS: Hematology Labs: Test 08/10/24 04:11 Range/Units White Blood Count 6.7 4.8-10.8 K/uL Red Blood Count 2.76 L 4.00-5.50 MIL/uL Hemoglobin 7.3 L 12.0-16.0 g/dL Hematocrit 23.6 L 36-48 % Mean Corpuscular Volume 85.5 79-99 fL Mean Corpuscular Hemoglobin 26.4 L 27.0-33.0 pg Mean Corpuscular Hemoglobin Concent 30.9 L 32.0-36.0 g/dL Red Cell Distribution Width 17.5 H 11.0-15.5 % Platelet Count 447 H 130-400 K/uL Mean Platelet Volume 10.7 H 7.5-10.5 fL Nucleated Red Blood Cells 0.0 0.0-0.19 % Chemistry Labs: Test 08/10/24 05:30 08/10/24 04:11 08/09/24 15:55 Range/Units Whole Blood Glucose 137 H 70-110 MG/DL Sodium Level 141 136-145 mmol/L Potassium Level 3.4 L 3.5-5.1 mmol/L Chloride Level 106 101-111 mmol/L Carbon Dioxide Level 26 21-32 mmol/L Blood Urea Nitrogen 25 H 7-18 mg/dL Creatinine 1.1 H 0.5-1.0 mg/dL Glomerular Filtration Rate Calc 58 >90 mL/min Random Glucose 143 H 70-105 mg/dL Total Calcium 8.5 8.5-10.1 mg/dL Magnesium Level 1.80 1.80-2.40 mg/dL Total Bilirubin 0.4 0.2-1.0 mg/dL Aspartate Amino Transf (AST/SGOT) 24 10-37 U/L Alanine Aminotransferase (ALT/SGPT) 36 12-78 U/L Alkaline Phosphatase 399 H 50-136 U/L Total Protein 5.1 L 6.0-8.3 g/dL Albumin 1.4 L 3.5-5.0 g/dL Bedside Glucose Comment Notified Nurse DIAGNOSTICS / RADIOLOGY RESULTS: [ ] PLAN IS Physical therapy discharge per primary Lovenox 40 mg sq daily Discharge plan as per primary Sign off this case NEURO: Minimize central acting medications as possible. Maintain fall precautions, adequate lighting during the day PULMONARY: Supplemental 02 as needed. Maintain aspiration precautions at all times CARDIOVASCULAR: Follow hemodynamics. Vital signs per facility protocol GI & NUTRITION: Continue with nutritional support. Continue stool softeners and laxatives as needed. KIDNEYS & ELECTROLYTES: Strict monitoring of intake, output and overall fluid balance. Avoid nephrotoxic medications to the extent possible. Medications to be dosed according to renal function. Monitor electrolytes and replace as needed ENDOCRINE: Maintain blood glucose between 100-180 at all times. Hypoglycemia protocol in place INFECTIOUS DISEASE: Trend temperature, WBC and procalcitonin level Follow cultures, deescalate antibiotics as soon as possible. Panculture if new onset fever ONCOLOGY/HEMATOLOGY/COAGULATION: Monitor for s/s of bleeding Monitor hemoglobin, coagulation studies as needed SKIN: Pressure ulcer prevention per facility protocol Specialty mattress ORTHO/REHAB: Continue PT/OT Prophylaxis: Continue GI and DVT prophylaxis Code Status: Full Resuscitation Disposition: As per attending ATTESTATION BY PHYSICIAN I have evaluated the patient chart, medical records, and spoke with appropriate staff. I reviewed the documentation, medical decision making, and treatment plan as noted by the mid-level provider above. I agree with the findings and plan of care. Chi Kearney MD,KATIE N CATTLE TESTER Aug 10, 2024 11:49
--- NOTE | 2024-08-10 12:27 | PN ---
[facility] PROGRESS NOTE Date of Service: Aug 10, 2024 Time of Service: 12:27 SUBJECTIVE: 59-year-old female the past medical history of hypertension who presented to the hospital secondary to abdominal pain. Patient stated for the past 3-4 days she has been having increasing abdominal pain with abdominal distention. She was feeling nauseated and had episodes of emesis at home. She denied any hematemesis, melena, hematochezia. Patient was previously hospitalized in [facility] around one month ago secondary to colitis. GI was consulted during admission and patient underwent colonoscopy with findings showing severe inflammation of the entire colon concerning for pancolitis. She was treated with IV steroids and and was to start patient on Remicade as outpatient. She denied any fever, chills, diarrhea. She was going to follow up with GI as outpatient on 07/26/24 but had worsening pain which caused her to come to the hospital for further evaluation. Labs in the ED were notable for white count of 10.3, hemoglobin was 12.8, platelet count was 363 K, sodium was 138, potassium was 2.8, creatinine is 1.0, blood glucose was 269, lactic acid on presentation was 8.[address] abdomen pelvis which showed free intraperitoneal air concerning for bowel perforation. There is a anterior ventral wall hernia with bowel content and air collection and fat stranding concerning for bowel perforation. Her colon was also noted to be inflamed. CT was performed without contrast. 07/26 BP 135/83, tachycardic 102, saturating 100% 2 L nasal cannula. CBC shows hemoglobin 11.0, hematocrit 35.9, WBC 18.8, platelet count of 203. Sodium 141, potassium 3.7, BUN of 29, creatinine slightly worse today at 1.2. ABG with pH 7.51, pCO2 of 28, PO2 62.6, bicarb of 22.5. Serology to include influenza, SARS and group A negative. Results of chest x-ray pending. Patient is scheduled to be taken to the OR today. 07/27 the patient remains admitted to the intensive care unit, intubated, on mechanical ventilation, status post exploratory laparotomy, postoperative day one, case discussed with the RN, patient on propofol, Jose Armando-Synephrine, wound VAC to the abdomen in place, noted to have right IJ line in place. Getting broad- spectrum IV antibiotics. Blood pressure 130/79, heart rate of 83, saturating 100% on mechanical ventilation, FiO2 40%. Leukocytosis is worse today at 28.1, drop in hemoglobin to 9.7, hematocrit 30.8, with a platelet count of 148. Potassium level 3.6, magnesium 1.6. Lactic acid from 8.2 down to 1.8 ABG with pH 7.4, pCO2 34, PO2 145, bicarb of 20. Chest x-ray shows bilateral lower lung infiltrates. Family at Bedside, updated 07/28 the patient has been seen and examined in the intensive care unit, she remains intubated, mechanical ventilation, on fentanyl, propofol and Jose Armando- Synephrine, getting broad-spectrum antibiotics, BP 112/84, afebrile, saturating 100% on mechanical ventilation, FiO2 40%. CBC with a hemoglobin 8.4, hematocrit 27.8, WBC of 16.3, platelet count of 89. Patient is status post exploratory laparotomy with drainage of intra-abdominal abscess/ventral hernia repair/small- bowel resection/NS of adhesions/left open and wound VAC on 07/23 05/28 by General surgery. Results of septic workup reviewed, Gram-negative rods. Patient with a possible ischemic colitis, plan to take the patient back to the operating room for further exploration. 07/29 Pt seen at bedside, no acute events overnight. She is s/p ex-lap with cholecystectomy. Currently on pressors, will wean as able. Remains intubated, PEEP 5, FiO2 30%, will continue with daily sedation vacations. She is mildly tachycardic. She is NPO, continue TPN per general surgery. WBC increased from 16.3 up to 16.8, Hgb improved from 8.4 up to 8.6, platelets decreased from 89 do wn to 76 07/30 Pt seen at bedside, no acute events overnight. She is s/p ex-lap with small bowel resection, appendectomy and drainage of intraabdominal abscess with wound vac post op day 4, repeat ex-lap with cholecystectomy, repair of left flank and ventral hernias post op day 2. Currently on pressors, will wean as able. Remains intubated, PEEP 5, FiO2 30%, she was on sedation vacation, in no acute distress, possible extubation today, will defer to critical care. She is NPO, continue TPN per general surgery. WBC improved from 16.8 down to 10.6, Hgb stable at 8.3, similar to yesterday, platelets improved from 76 up to 90, remai nder of her labs are relatively unremarkable. 07/31 patient seen at bedside, no acute events overnight. She is status post ex lap with small-bowel resection, appendectomy and drainage of intra-abdominal abscess with wound VAC postop day five, repeat ex lap with cholecystectomy, repair of left flank and ventral hernias postop day three. She has been successfully extubated, we will continue to try and wean pressors. Hemoglobin stable at 7.2, similar to yesterday, platelets decreased from 119-98, potassium mildly low at 3.2, we will be repleted according to protocol, remainder of her labs are relatively unremarkable. 08/02 patient seen at bedside, no acute events overnight. She is status post ex lap with small-bowel resection, appendectomy and drainage of intra-abdominal abscess with wound VAC postop day 6 repeat ex lap with cholecystectomy, repair of left flank and ventral hernias postop day 4. She has been successfully extubated, and weaned off pressors. She was transfused yesterday, Hgb improved from 6.9 up to 9.7, platelets improved to 166, potassium mildly low at 3.2, we will be repleted according to protocol, remainder of her labs are relatively unremarkable. She continues on TPN, diet to be addressed by general surgery. Only complaint is continued xuan-incisional pain 08/03 patient seen at bedside, no acute events overnight. At bedside she is in no acute distress, she has no complaints. She is status post ex lap with small- bowel resection, appendectomy and drainage of intra-abdominal abscess with wound VAC postop day 7 repeat ex lap with cholecystectomy, repair of left flank and ventral hernias postop day 5. WBC increased from 8.0 up to 27.1, this seemed to be and anomaly so a repeat CBC was ordered and WBC increased again to 34.4. Patient has been bolused 1 L of LR, repeat lactic acid was ordered and was mildly elevated at 2.5, wounds were examined at bedside and found to be clean dry and intact with no drainage or erythema. The BYRON drains are still draining serosanguineous fluid there does not appear to be sick succus suggesting bowel perforation. Discussed case with General surgery and Infectious Disease, we agreed to order a CT scan of the abdomen/pelvis to determine if there is a new abscess forming. Patient has not had watery bowel movements to suggest C diff and she is already on fluconazole. Hemoglobin increased from 8.7 up to 11.2, remainder of her labs are relatively unremarkable. Antibiotics were adjusted to Zyvox and meropenem. Further recommendations per Infectious Disease and General surgery. 08/04 patient seen at bedside, no acute events overnight. She has no complaints at bedside, reports her pain has improved today. She was made NPO yesterday after she vomited, we will resume clear liquid diet per General surgery recommendations. She is hemodynamically stable saturating well on room air, her WBC improved from 34.4 down to 30.8, hemoglobin decreased from 11.2 down to 8.6, potassium decreased from 4.1 down to 3.2, remainder of her labs are relatively unremarkable. Pt has been referred for LTAC, follow up with case management 08/05 patient is seen and examined, comfortable in bed, following commands, nutri tional support via TPN, BP 123/75, heart rate of 103, afebrile, saturating 97% room air. CBC shows a hemoglobin of 7.7, hematocrit 24.6, WBC 23.2, platelet count of 266. Sodium 137, potassium 3.4, BUN of 49, creatinine 0.7. The patient remains NPO. We will recheck CBC, transfuse 1 unit of PRBC if hemoglobin less than seven, replace electrolytes IV per protocol, continue to follow surgical input and recommendation, pending LTAC. Patient to continue broad-spectrum IV antibiotics with the meropenem, linezolid. Family at bedside, updated 08/06 the patient has been seen and examined during rounding, during my visit physical therapy evaluated the patient, noted to have swollen to the left upper extremity at the site of the PICC line. The patient remains hemodynamically stable, BP 120/78, afebrile, saturating normal on room air. Case discussed with the RN, TPN discontinued yesterday, patient is started on clear liquid diet. WBC still elevated 25.7, hemoglobin 8.7, hematocrit 27.1, platelet count of 313. We will follow repeat CMP today as potassium insulin drip 0.4 with magnesium 1.7. We will discuss discharge plan with case management, patient may benefit from discharge to LTAC as the patient with persistent leukocytosis and getting broad-spectrum IV antibiotics with meropenem and linezolid IV. We will request speech therapy to evaluate the patient. Per discussion with the RN the patient had low blood glucose in the 50s today, we will hold Lantus, continue only sliding scale, patient with a Troy catheter, we will do bladder training, Doppler of the left upper extremity ordered. at bedside, updated. 08/07 the patient has been seen and examined, remains comfortably in bed, patient remains admitted to the medical floor, remains hemodynamically stable, blood pressure 140/89, afebrile, saturating normal on room air. Yesterday she was noted to have swollen to the left arm with a PICC line , a Doppler was done, no evidence of deep venous thrombosis. Left arm kept elevated, less swelling noted today. TPN discontinued and patient started on clear liquid diet, speech therapy consulted, patient is started on GI soft diet. Leukocytosis today improving, 12.9, hemoglobin dropped to 7.5, hematocrit 24.2, potassium 3.5, magnesium 2.0. We will give potassium chloride 40 mEq p.o. x1, serial CBC q.8 hours, transfuse 1 unit of PRBC if hemoglobin less than seven, we will check stool occult blood. at bedside, updated. 08/08 patient is seen and examined at bedside, case discussed with the RN, no acute events overnight, blood pressure 156/86, heart rate of 102, afebrile, saturating normal on room air. Sodium 141, potassium 3.5, BUN of 26, 0.9, magnesium 1.7, we will give magnesium sulfate 2 g IV x1, follow CBC, transfuse as needed. 08/09 patient remains admitted to the medical floor, remains hemodynamically stable, blood pressure 134/70, afebrile, saturating normal on room air. H emoglobin has remained stable at 7.4, no signs of active bleeding, melena, no hematochezia, no hematemesis, no hematuria. Patient remains on GI soft diet, tolerating well. Case management has been consulted, pending insurance approval [facility]. 08/10 patient is seen and examined at bedside, case discussed with the RN, remains hemodynamically stable, at bedside, updated, pending insurance approval for the patient to be accepted to [facility]. REVIEW OF SYSTEMS 12 point ROS negative unless noted in HPI PHYSICAL EXAM GENERAL APPEARANCE: Patient intubated, on mechanical ventilation. NEUROLOGICAL: Cranial nerves II-XII grossly intact. Motor is 5/5 in bilateral upper and lower extremities proximal to distal. No sensory deficits. HEENT: Face is symmetric. Pupils are equal and reactive. Extraocular movements are intact. NECK: Supple. No JVD. No thyromegaly. No submental, submandibular, pre- /postauricular, occipital or supraclavicular lymphadenopathy. CHEST: Normal chest expansion. No Telemetry. LUNGS: Absence of any rales, rhonchi or any wheezing. CARDIOVASCULAR: Regular. S1 and S2 normal. No appreciable rubs, murmurs or gallops. ABDOMEN: Abdominal wound VAC in place : Deferred. No Troy. EXTREMITIES: Non-edematous and not cyanotic. No clubbing. Good capillary refill. SKIN: No skin breakdown. Vital Signs (last 8hr) Date Time Temp Pulse Resp B/P (MAP) Pulse Ox O2 Delivery O2 Flow Rate FiO2 08/10/24 08:02 86 18 N/A Room Air 21 08/10/24 08:00 98.2 86 19 128/83 99 Room Air 21 08/10/24 06:56 83 18 08/10/24 04:44 97.5 83 19 135/86 96 Room Air LABS: Laboratory: Test 08/10/24 12:00 08/10/24 04:11 Range/Units Whole Blood Glucose 148 H 70-110 MG/DL Bedside Glucose Comment Notified Nurse White Blood Count 6.7 4.8-10.8 K/uL Red Blood Count 2.76 L 4.00-5.50 MIL/uL Hemoglobin 7.3 L 12.0-16.0 g/dL Hematocrit 23.6 L 36-48 % Mean Corpuscular Volume 85.5 79-99 fL Mean Corpuscular Hemoglobin 26.4 L 27.0-33.0 pg Mean Corpuscular Hemoglobin Concent 30.9 L 32.0-36.0 g/dL Red Cell Distribution Width 17.5 H 11.0-15.5 % Platelet Count 447 H 130-400 K/uL Mean Platelet Volume 10.7 H 7.5-10.5 fL Nucleated Red Blood Cells 0.0 0.0-0.19 % Sodium Level 141 136-145 mmol/L Potassium Level 3.4 L 3.5-5.1 mmol/L Chloride Level 106 101-111 mmol/L Carbon Dioxide Level 26 21-32 mmol/L Blood Urea Nitrogen 25 H 7-18 mg/dL Creatinine 1.1 H 0.5-1.0 mg/dL Glomerular Filtration Rate Calc 58 >90 mL/min Random Glucose 143 H 70-105 mg/dL Total Calcium 8.5 8.5-10.1 mg/dL Magnesium Level 1.80 1.80-2.40 mg/dL Total Bilirubin 0.4 0.2-1.0 mg/dL Aspartate Amino Transf (AST/SGOT) 24 10-37 U/L Alanine Aminotransferase (ALT/SGPT) 36 12-78 U/L Alkaline Phosphatase 399 H 50-136 U/L Total Protein 5.1 L 6.0-8.3 g/dL Albumin 1.4 L 3.5-5.0 g/dL Current Medications Medications (Trade) Dose Ordered Sig/Alexandra Route PRN Reason Start Time Stop Time Status Last Admin Dose Admin Acetaminophen (TYLenol 325MG TAB) 650 mg Q4H PRN PO TEMPERATURE GREATER THAN 101.5 08/06/24 23:30 09/05/24 23:29 08/07/24 08:16 650 MG Acetaminophen (TYLenol 325MG TAB) 650 mg Q4H PRN PO PAIN LEVEL 1 TO 3 08/09/24 05:00 09/08/24 04:59 08/10/24 00:14 650 MG Albumin Human 100 ml @ 50 mls/hr AD IV 07/28/24 08:00 07/31/24 07:59 DC Cefepime HCl (MAXipime 2 gm vial) 2 gm Q24H IVPB 07/26/24 22:00 07/27/24 14:55 DC 07/26/24 22:54 2 GM Dexmedetomidine/ Sodium Chloride (PRECEdex 400MCG/ 100ML-NS) 400 mcg PROTOCOL PRN IV agitation 07/29/24 14:00 08/03/24 13:31 DC 07/30/24 01:18 400 MCG Dextrose (D50w) 50 ml AD PRN IV HYPOGLYCEMIA PROTOCOL 07/27/24 16:00 08/26/24 15:59 08/07/24 00:07 50 ML Enoxaparin Sodium (Lovenox) 40 mg DAILY SQ 08/07/24 09:00 09/06/24 08:59 08/10/24 10:15 40 MG Famotidine (Pepcid 20mg Vial) 20 mg Q24H IV 07/25/24 21:00 08/24/24 20:59 08/09/24 20:56 20 MG Fat Emulsion Intravenous 250 ml @ 42 mls/hr QMOFR IV 07/29/24 09:00 08/05/24 16:31 DC 08/05/24 09:35 42 MLS/HR Fentanyl Citrate 100 ml @ 0 mls/hr PROTOCOL IV 07/26/24 13:30 07/27/24 12:04 DC Fentanyl Citrate 100 ml @ 0 mls/hr PROTOCOL IV 07/27/24 12:30 07/29/24 13:42 DC 07/29/24 02:03 5 MLS/HR Fentanyl/Sodium Chloride 250 ml @ 0.1 mls/hr PROTOCOL IV 07/27/24 12:00 07/27/24 12:05 DC Fluconazole/ Sodium Chloride 100 ml @ 100 mls/hr Q24H IV 07/26/24 13:30 08/25/24 13:29 08/09/24 12:29 100 MLS/HR Furosemide (LASix 20MG VIAL) 20 mg Q8H IV 07/28/24 15:30 08/27/24 15:29 08/10/24 06:16 20 MG Glucagon (Glucagon 1mg Kit) 1 mg AD PRN IM HYPOGLYCEMIA PROTOCOL 07/27/24 16:00 08/26/24 15:59 Hydralazine HCl (APRESOLine 20MG INJ) 5 mg Q6H PRN IV ADMINISTER FOR SBP > 160 08/08/24 12:30 09/07/24 12:29 Hydromorphone HCl (DiLAUDid 0.5MG INJ) 0.5 mg Q4H PRN IVP SEVERE PAIN (7-10) 07/29/24 14:00 08/03/24 13:59 DC 08/02/24 11:44 0.5 MG Insulin Glargine (LANtus 100 UNITS/ML 10 ML VIAL) 5 units HS SQ 07/27/24 21:00 07/29/24 09:47 DC 07/28/24 20:48 5 UNITS Insulin Glargine (LANtus 100 UNITS/ML 10 ML VIAL) 15 units BID SQ 07/29/24 21:00 08/06/24 12:06 DC 08/05/24 21:42 15 UNITS Insulin Glargine (LANtus 100 UNITS/ML 10 ML VIAL) 15 units HS SQ 07/29/24 21:00 07/29/24 13:43 DC Insulin Human Regular (humuLIN R 100 UNIT/ML 3ML) INSULIN SLIDING SCAL... ACHS SQ 08/08/24 21:00 09/07/24 20:59 Insulin Human Regular (humuLIN R 100 UNIT/ML 3ML) INSULIN SLIDING SCAL... Q6H6 SQ 07/26/24 00:00 08/08/24 19:44 DC 08/08/24 18:45 3 UNIT Ipratropium [place] (AtrovENT UD) 0.5 mg [id number] IH 07/30/24 18:00 08/29/24 17:59 08/10/24 11:32 0.5 MG Linezolid 300 ml @ 150 mls/hr Q12H IV 08/03/24 13:00 08/13/24 12:59 08/10/24 00:08 150 MLS/HR Magnesium Sulfate 50 ml @ 0 mls/hr PROTOCOL IV 08/06/24 13:00 08/08/24 12:12 DC Magnesium Sulfate 50 ml @ 0 mls/hr PROTOCOL IV 08/08/24 12:30 09/07/24 12:29 08/10/24 06:17 25 MLS/HR Magnesium Sulfate 50 ml @ 0 mls/hr PROTOCOL PRN IV hypomagnesemia 07/25/24 18:00 08/06/24 17:19 DC 08/06/24 10:01 0 MLS/HR Meropenem (Merrem 1gm) 1 gm Q12H IVPB 07/27/24 15:30 08/03/24 03:31 DC 08/03/24 03:31 1 GM Meropenem (Merrem 1gm) 1 gm Q12H IVPB 08/03/24 15:30 08/10/24 03:31 DC 08/10/24 02:49 1 GM Metoprolol Tartrate (loprESSOR) 2.5 mg Q12H9 IV 07/31/24 21:00 08/09/24 11:33 DC 08/08/24 20:38 2.5 MG Metoprolol Tartrate (loprESSOR) 25 mg BID PO 08/08/24 12:30 09/07/24 12:29 08/10/24 10:15 25 MG Midazolam HCl 50 ml @ 0 mls/hr PROTOCOL IV 07/26/24 13:30 07/29/24 13:42 DC Nystatin (MycoSTATin 30 GM CREAM) 1 APPL BID TP 07/31/24 21:00 08/30/24 20:59 08/10/24 10:17 1 APPL Ondansetron HCl (zoFRAN 4MG INJ) 4 mg Q6H PRN IVP NAUSEA/VOMITING 07/25/24 18:00 08/24/24 17:59 08/03/24 15:32 4 MG Pharmacy Profile Note (Lace Assessment) 1 each AD MISC 07/27/24 15:30 07/27/24 15:14 DC Pharmacy Profile Note (Lace Assessment) 1 each AD MISC 08/03/24 11:00 08/03/24 11:10 DC Pharmacy Profile Note (Pharmacy Communication) 1 each ONCE MISC 07/27/24 15:00 07/28/24 07:29 DC Pharmacy Profile Note (Pharmacy Communication) 1 each ONCE MISC 08/03/24 11:00 08/03/24 11:47 DC Pharmacy Profile Note (Pharmacy Communication) 1 each ONCE MISC 08/03/24 11:00 08/03/24 11:53 DC Phenol (Sore Throat [place]) 1 spry Q4H PRN PO SORE THROAT 08/01/24 05:00 08/31/24 04:59 08/03/24 10:19 1 SPRY Phenylephrine HCl 100 mg/Sodium Chloride 250 ml @ 0 mls/hr AD PRN IV TITRATE 07/26/24 13:30 08/03/24 13:31 DC 07/30/24 04:41 9.52 MLS/HR Piperacillin Sod/ Tazobactam Sod (Zosyn 3.375gm+NS 50ml) 3.375 gm Q12H IV 07/25/24 20:00 07/25/24 17:27 DC Piperacillin Sod/ Tazobactam Sod (Zosyn 3.375gm+NS 50ml) 3.375 gm Q8H IVPB 07/25/24 19:00 07/26/24 21:40 DC 07/26/24 19:40 3.375 GM Piperacillin Sod/ Tazobactam Sod (Zosyn 3.375gm+NS 50ml) 3.375 gm Q8H IVPB 07/25/24 20:00 07/25/24 18:49 DC Potassium Chloride 100 ml @ 50 mls/hr AD PRN IV POTASSIUM PROTOCOL 07/25/24 18:00 08/24/24 17:59 08/06/24 16:20 50 MLS/HR Potassium Chloride (K-Dur/Klor-Con 20meq) 20 meq AD PRN PO POTASSIUM PROTOCOL 08/06/24 12:30 09/05/24 12:29 08/10/24 10:15 20 MEQ Potassium Chloride (KCl 10% Elixir 20meq/15ml) 20 meq AD PRN PO POTASSIUM PROTOCOL 08/06/24 12:30 09/05/24 12:29 08/06/24 12:49 20 MEQ Propofol 100 ml @ 0 mls/hr AD PRN IV TITRATE 07/26/24 13:30 07/29/24 13:42 DC 07/29/24 02:49 12.2 MLS/HR Sodium Chloride 1,000 ml @ 50 mls/hr Q20H IV 08/04/24 11:30 08/06/24 12:06 DC 08/06/24 09:10 50 MLS/HR Sodium Chloride 1,000 ml @ 125 mls/hr Q8H IV 07/25/24 17:30 07/27/24 16:01 DC 07/27/24 07:58 125 MLS/HR Sodium Chloride (NS 50ml) 50 ml AD IV 07/25/24 17:00 07/25/24 17:29 DC Vancomycin HCl 250 ml @ 125 mls/hr Q12H IV 07/31/24 04:00 08/02/24 04:37 DC 08/01/24 03:10 125 MLS/HR Vancomycin HCl 250 ml @ 125 mls/hr Q12H IV 08/02/24 05:00 08/03/24 11:09 DC 08/02/24 17:22 125 MLS/HR Vancomycin HCl 250 ml @ 125 mls/hr Q24H IV 07/26/24 17:00 07/27/24 15:09 DC 07/26/24 19:55 125 MLS/HR Vancomycin HCl (Vancomycin Protocol) 1 each AD IV 07/25/24 17:00 07/27/24 14:55 DC Vancomycin HCl (Vancomycin Protocol) 1 each AD IV 07/30/24 15:00 08/03/24 11:09 DC Wound Care/ Dressing Products (Venelex Ointment) BID TP 07/31/24 21:00 08/30/24 20:59 08/10/24 10:17 1 GM DIAGNOSTICS / RADIOLOGY: [ ] ASSESSMENT: Septic shock requiring pressors Bacterial peritonitis POA Bowel perforation w/ [id number] S/P exploratory laparotomy with drainage of intra-abdominal abscess/ventral hernia repair/small-bowel resection/NS of adhesions/left open and a wound VAC on 07/26/24 per High risk for ischemic bowel-POA Intractable abdominal pain-POA Acute hypokalemia-POA this is Dehydration-POA SHARMILA not POA Lactic acidosis-POA Hyperglycemia 2/2 uncontrolled diabetes mellitus Primary HTN HX of colitis HX of inflammatory bowel disease (Crohn's Disease) HX of cardiac arrest HX of BLE cellulitis Recent hospitalization for UTI with outpatient Zosyn antibiotic \ PLAN: Patient remains admitted to the medical floor Patient on GI soft diet, tolerating well To follow CBC transfuse as needed Continue to follow surgical input and recommendation Doppler of the left lower extremity negative for DVT Case management consulted, pending acceptance to [facility], pending insurance approval. NEURO: Minimize central acting medications as possible. Fall Precautions. Well lighted room through the day and minimize interruptions through the night to prevent acute delirium. PULMONARY: Supplemental 02 as needed BiPAP as necessary, for respiratory distress Titrate Fio2 to keep Spo2 > or = 90% DuoNebs and CPT as needed IS hourly while awake for pulmonary hygiene prn Out of bed to chair as tolerated Maintain aspiration precautions at all times CARDIOVASCULAR: Follow hemodynamics. Vital signs per facility protocol GI & NUTRITION: Continue nutritional support Aspirations precautions Prokinetic agents and laxatives as needed KIDNEYS & ELECTROLYTES: Strict monitoring of intake and output Daily weights Avoid nephrotoxic agents Monitor electrolytes and replace as needed Goal urine output of 30mL/hr or 0.5mL/kg/hr Medications to be dosed according to renal function. Avoid contrast if possible ENDOCRINE: Maintain blood glucose between 100-180 at all times. Insulin sliding scale for blood glucose management Hypoglycemia and hyperglycemia protocol in place INFECTIOUS DISEASE: Trend temperature, WBC and procalcitonin level Follow cultures, deescalate antibiotics as soon as possible. Panculture if new onset fever HEMATOLOGY & COAGULATION: Monitor H&H. Keep Hgb > 7 Transfuse 1 unit of PRBC for Hgb < 7 Transfuse 1 pack of platelets of platelets < 20, 000 Watch for any signs and symptoms of bleeding SKIN: Pressure ulcer prevention per facility protocol Specialty mattress as needed ORTHO/REHAB Continue PT/OT PRN: MEDICATIONS Tylenol 650 mg po every 4 hrs for fever zofran 4 mg IV every 6 hrs for n/v Hydralazine 5 mg IV every 4 hrs systolic pressure > 160 bowel regiment: lactulose 20 gm PO BID PRN constipation Supportive measures: Continue GI and DVT prophylaxis Disposition: Pending improvement in clinical condition All questions answered time spent: > 35 min MICKEY FINNEY MD Aug 10, 2024 12:27
--- NOTE | 2024-08-10 13:03 | PN ---
INFECTIOUS DISEASE PROGRESS NOTE Date of Service: Aug 10, 2024 SUBJECTIVE: This 59 year old female patient is being seen today at bedside. Awake, alert and oriented x3. No fever or chills. No nausea or vomiting. Patient continues with wound care to abdominal surgical wound, BYRON drain noted. Denies pain at this time. She continues with antibiotics tolerating well. Patient is pending insurance approval to [facility]. No acute events reported at this time. PHYSICAL EXAM EYES: Anicteric. Pupils equal and reactive. HENT: No oral thrush seen, moist Oral mucosa. NECK: Supple, no JVD or thyromegaly. LUNGS: Good air entry. No rales, no rhonchi. CARDIOVASCULAR: S1, S2 regular. No murmur heard. ABDOMEN: Soft, non tender, bowel sounds present, no organomegaly. Abdominal surgical incision with two BYRON drains. CENTRAL NERVOUS SYSTEM: Awake, alert and oriented x3. SKIN: No rashes, no swelling. LYMPHATICS: No peripheral lymphadenopathy. MUSCULOSKELETAL: No joint swelling, erythema or tenderness. Debility. EXTREMITIES: No cyanosis or clubbing. BACK: No deformity, no pressure ulcer. GENITOURINARY: No dysuria or hematuria. Troy catheter. Vital Sign (Last 12 Hours) 08/10/24 08/10/24 08/10/24 08/10/24 04:44 06:56 08:00 08:02 Temp 97.5 98.2 Pulse 83 83 86 86 Resp 19 18 19 18 B/P (MAP) 135/86 128/83 Pulse Ox 96 99 O2 Delivery Room Air Room Air N/A Room Air FiO2 21 21 Intake & Output (last 24hrs) 08/09/24 08/09/24 08/10/24 15:00 23:00 07:00 Intake Total 150 ml 1060.0 ml Output Total 30 ml Balance 120 ml 1060.0 ml LABS: Laboratory: Test 08/10/24 12:00 08/10/24 04:11 Range/Units Whole Blood Glucose 148 H 70-110 MG/DL Bedside Glucose Comment Notified Nurse White Blood Count 6.7 4.8-10.8 K/uL Red Blood Count 2.76 L 4.00-5.50 MIL/uL Hemoglobin 7.3 L 12.0-16.0 g/dL Hematocrit 23.6 L 36-48 % Mean Corpuscular Volume 85.5 79-99 fL Mean Corpuscular Hemoglobin 26.4 L 27.0-33.0 pg Mean Corpuscular Hemoglobin Concent 30.9 L 32.0-36.0 g/dL Red Cell Distribution Width 17.5 H 11.0-15.5 % Platelet Count 447 H 130-400 K/uL Mean Platelet Volume 10.7 H 7.5-10.5 fL Nucleated Red Blood Cells 0.0 0.0-0.19 % Sodium Level 141 136-145 mmol/L Potassium Level 3.4 L 3.5-5.1 mmol/L Chloride Level 106 101-111 mmol/L Carbon Dioxide Level 26 21-32 mmol/L Blood Urea Nitrogen 25 H 7-18 mg/dL Creatinine 1.1 H 0.5-1.0 mg/dL Glomerular Filtration Rate Calc 58 >90 mL/min Random Glucose 143 H 70-105 mg/dL Total Calcium 8.5 8.5-10.1 mg/dL Magnesium Level 1.80 1.80-2.40 mg/dL Total Bilirubin 0.4 0.2-1.0 mg/dL Aspartate Amino Transf (AST/SGOT) 24 10-37 U/L Alanine Aminotransferase (ALT/SGPT) 36 12-78 U/L Alkaline Phosphatase 399 H 50-136 U/L Total Protein 5.1 L 6.0-8.3 g/dL Albumin 1.4 L 3.5-5.0 g/dL ASSESSMENT: Intestinal perforation, s/p closure of exploratory laparotomy on 07/28/2024. Intra-abdominal abscess with polymicrobial infection, status post open drainage 07/26/2024. Peritonitis. Leukocytosis, resolved. Anemia requiring blood transfusion. Respiratory failure requiring intubation, s/p extubated. History of colitis. Debility. PLAN: Continue linezolid IV. Continue Meropenem. Continue fluconazole. Continue GI prophylaxis. Continue physical therapy. Continue Nutritional support as recommended by General surgery. Pending insurance approval to [email or web address] for rehab and IV antibiotics. This case was reviewed and discussed with my supervising physician and the above assessment and plan was formulated and agreed upon. MARNIE CHURCHILL Aug 10, 2024 13:03
[2024-08-10] MEDS ORDERED: AZATHIOPRINE 50 MG TAB PO SCH (19:30)
--- NOTE | 2024-08-10 19:50 | NUR ---
PHARMACIST CALLED AND ASKED FOR MERREM DOSE ORDER FORM. CALLED DR CHATTERJEE TO ASK ABOUT PT'S MERREM DOSE. NO ANSWER TO CALL TO , CALL WORKER LEFT MESSAGE ON VOICE MAIL TO CALL BACK. DR CHATTERJEE CALLED BACK AT 1954 AND CLARIFIED ABOUT MERREM DOSE. NEW MED ORDER RECEIVED. PLEASE REFER TO CPOE.
[2024-08-10] MEDS ORDERED: [UNRECOGNIZED DRUG - REMARK] MISC SCH (20:00)
[2024-08-10] MEDS ORDERED: [UNRECOGNIZED DRUG - REMARK] MISC SCH (20:00)
--- NOTE | 2024-08-10 20:20 | NUR ---
HOME MEDS PHARMACIST CALLED TO ASK ABOUT DOSE FOR IMURAN. PT AND FAMILY ASKED BUT DOES NOT KNOW. INSTRUCTED FAMILY TO BRING MED IN AM.
[2024-08-10] MEDS ORDERED: CHOLECALCIFEROL PO SCH (20:30)
[2024-08-10] MEDS: MELATONIN 5 MG TABLET PO SCH (20:34)
[2024-08-10] MEDS: MEROPENEM 1GM 1 GM VIAL IVPB SCH (20:34)
--- NOTE | 2024-08-10 20:35 | NUR ---
MEDS SHIFT ASSESSMENT DONE, PLEASE REFER TO CHART. DUE MEDS ADMINISTERED, TOLERATED WELL. CALL LIGHT WITHIN REACH. FAMILY AT BEDSIDE.
[2024-08-11] VITALS (14 sets, daily range): BP systolic 119–140; BP diastolic 61–93; PULSE 78–91; RESP 18–21; TEMP 97.4–98.3; O2SAT 95–99
[2024-08-11] MEDS: LINEZOLID 600 MG/ISO-OSM 300 ML IV SCH (00:42)
[2024-08-11 04:40] LABS: HEMATOCRIT 24.3 % (36-48); MEAN CORPUSCULAR HEMOGLOBIN 26.1 pg (27.0-33.0); MEAN CORPUSCULAR VOLUME 86.8 fL (79-99); RED BLOOD CELL COUNT(AUTO) 2.8 MIL/uL (4.00-5.50); RED CELL DISTRIBUTION WIDTH 17.3 % (11.0-15.5); WHITE BLOOD COUNT (AUTO) 5.9 K/uL (4.8-10.8)
[2024-08-11 05:05] LABS: ALBUMIN 1.4 g/dL (3.5-5.0); BILIRUBIN,TOTAL 0.4 mg/dL (0.2-1.0); CREATININE 0.9 mg/dL (0.5-1.0); POTASSIUM 3.1 mmol/L (3.5-5.1); TOTAL PROTEIN, SERUM 5.2 g/dL (6.0-8.3)
--- NOTE | 2024-08-11 05:31 | NUR ---
MEDS PT WAS JUST CHANGED BY PCP AND RE-POSITIONED COMFORTABLY IN BED WITH HOB ELEVATED. PT SLEPT AT INTERVALS DURING THE SHIFT. STARTED ON PO POTASSIUM PER PROTOCOL, TOLERATED WELL. PT'S SPOUSE AT BEDSIDE IN ATTENDANCE TO NEEDS AT THIS TIME.
[2024-08-11] MEDS: MESALAMINE 1.2 GM PO SCH (08:49)
--- NOTE | 2024-08-11 10:03 | PN ---
[facility] PROGRESS NOTE Date of Service: Aug 11, 2024 Time of Service: 10:02 SUBJECTIVE: 59-year-old female the past medical history of hypertension who presented to the hospital secondary to abdominal pain. Patient stated for the past 3-4 days she has been having increasing abdominal pain with abdominal distention. She was feeling nauseated and had episodes of emesis at home. She denied any hematemesis, melena, hematochezia. Patient was previously hospitalized in [facility] around one month ago secondary to colitis. GI was consulted during admission and patient underwent colonoscopy with findings showing severe inflammation of the entire colon concerning for pancolitis. She was treated with IV steroids and and was to start patient on Remicade as outpatient. She denied any fever, chills, diarrhea. She was going to follow up with GI as outpatient on 07/26/24 but had worsening pain which caused her to come to the hospital for further evaluation. Labs in the ED were notable for white count of 10.3, hemoglobin was 12.8, platelet count was 363 K, sodium was 138, potassium was 2.8, creatinine is 1.0, blood glucose was 269, lactic acid on presentation was 8.[address] abdomen pelvis which showed free intraperitoneal air concerning for bowel perforation. There is a anterior ventral wall hernia with bowel content and air collection and fat stranding concerning for bowel perforation. Her colon was also noted to be inflamed. CT was performed without contrast. 07/26 BP 135/83, tachycardic 102, saturating 100% 2 L nasal cannula. CBC shows hemoglobin 11.0, hematocrit 35.9, WBC 18.8, platelet count of 203. Sodium 141, potassium 3.7, BUN of 29, creatinine slightly worse today at 1.2. ABG with pH 7.51, pCO2 of 28, PO2 62.6, bicarb of 22.5. Serology to include influenza, SARS and group A negative. Results of chest x-ray pending. Patient is scheduled to be taken to the OR today. 07/27 the patient remains admitted to the intensive care unit, intubated, on mechanical ventilation, status post exploratory laparotomy, postoperative day one, case discussed with the RN, patient on propofol, Jose Armando-Synephrine, wound VAC to the abdomen in place, noted to have right IJ line in place. Getting broad- spectrum IV antibiotics. Blood pressure 130/79, heart rate of 83, saturating 100% on mechanical ventilation, FiO2 40%. Leukocytosis is worse today at 28.1, drop in hemoglobin to 9.7, hematocrit 30.8, with a platelet count of 148. Potassium level 3.6, magnesium 1.6. Lactic acid from 8.2 down to 1.8 ABG with pH 7.4, pCO2 34, PO2 145, bicarb of 20. Chest x-ray shows bilateral lower lung infiltrates. Family at Bedside, updated 07/28 the patient has been seen and examined in the intensive care unit, she remains intubated, mechanical ventilation, on fentanyl, propofol and Jose Armando- Synephrine, getting broad-spectrum antibiotics, BP 112/84, afebrile, saturating 100% on mechanical ventilation, FiO2 40%. CBC with a hemoglobin 8.4, hematocrit 27.8, WBC of 16.3, platelet count of 89. Patient is status post exploratory laparotomy with drainage of intra-abdominal abscess/ventral hernia repair/small- bowel resection/NS of adhesions/left open and wound VAC on 07/23 05/28 by General surgery. Results of septic workup reviewed, Gram-negative rods. Patient with a possible ischemic colitis, plan to take the patient back to the operating room for further exploration. 07/29 Pt seen at bedside, no acute events overnight. She is s/p ex-lap with cholecystectomy. Currently on pressors, will wean as able. Remains intubated, PEEP 5, FiO2 30%, will continue with daily sedation vacations. She is mildly tachycardic. She is NPO, continue TPN per general surgery. WBC increased from 16.3 up to 16.8, Hgb improved from 8.4 up to 8.6, platelets decreased from 89 do wn to 76 07/30 Pt seen at bedside, no acute events overnight. She is s/p ex-lap with small bowel resection, appendectomy and drainage of intraabdominal abscess with wound vac post op day 4, repeat ex-lap with cholecystectomy, repair of left flank and ventral hernias post op day 2. Currently on pressors, will wean as able. Remains intubated, PEEP 5, FiO2 30%, she was on sedation vacation, in no acute distress, possible extubation today, will defer to critical care. She is NPO, continue TPN per general surgery. WBC improved from 16.8 down to 10.6, Hgb stable at 8.3, similar to yesterday, platelets improved from 76 up to 90, remai nder of her labs are relatively unremarkable. 07/31 patient seen at bedside, no acute events overnight. She is status post ex lap with small-bowel resection, appendectomy and drainage of intra-abdominal abscess with wound VAC postop day five, repeat ex lap with cholecystectomy, repair of left flank and ventral hernias postop day three. She has been successfully extubated, we will continue to try and wean pressors. Hemoglobin stable at 7.2, similar to yesterday, platelets decreased from 119-98, potassium mildly low at 3.2, we will be repleted according to protocol, remainder of her labs are relatively unremarkable. 08/02 patient seen at bedside, no acute events overnight. She is status post ex lap with small-bowel resection, appendectomy and drainage of intra-abdominal abscess with wound VAC postop day 6 repeat ex lap with cholecystectomy, repair of left flank and ventral hernias postop day 4. She has been successfully extubated, and weaned off pressors. She was transfused yesterday, Hgb improved from 6.9 up to 9.7, platelets improved to 166, potassium mildly low at 3.2, we will be repleted according to protocol, remainder of her labs are relatively unremarkable. She continues on TPN, diet to be addressed by general surgery. Only complaint is continued xuan-incisional pain 08/03 patient seen at bedside, no acute events overnight. At bedside she is in no acute distress, she has no complaints. She is status post ex lap with small- bowel resection, appendectomy and drainage of intra-abdominal abscess with wound VAC postop day 7 repeat ex lap with cholecystectomy, repair of left flank and ventral hernias postop day 5. WBC increased from 8.0 up to 27.1, this seemed to be and anomaly so a repeat CBC was ordered and WBC increased again to 34.4. Patient has been bolused 1 L of LR, repeat lactic acid was ordered and was mildly elevated at 2.5, wounds were examined at bedside and found to be clean dry and intact with no drainage or erythema. The BYRON drains are still draining serosanguineous fluid there does not appear to be sick succus suggesting bowel perforation. Discussed case with General surgery and Infectious Disease, we agreed to order a CT scan of the abdomen/pelvis to determine if there is a new abscess forming. Patient has not had watery bowel movements to suggest C diff and she is already on fluconazole. Hemoglobin increased from 8.7 up to 11.2, remainder of her labs are relatively unremarkable. Antibiotics were adjusted to Zyvox and meropenem. Further recommendations per Infectious Disease and General surgery. 08/04 patient seen at bedside, no acute events overnight. She has no complaints at bedside, reports her pain has improved today. She was made NPO yesterday after she vomited, we will resume clear liquid diet per General surgery recommendations. She is hemodynamically stable saturating well on room air, her WBC improved from 34.4 down to 30.8, hemoglobin decreased from 11.2 down to 8.6, potassium decreased from 4.1 down to 3.2, remainder of her labs are relatively unremarkable. Pt has been referred for LTAC, follow up with case management 08/05 patient is seen and examined, comfortable in bed, following commands, nutri tional support via TPN, BP 123/75, heart rate of 103, afebrile, saturating 97% room air. CBC shows a hemoglobin of 7.7, hematocrit 24.6, WBC 23.2, platelet count of 266. Sodium 137, potassium 3.4, BUN of 49, creatinine 0.7. The patient remains NPO. We will recheck CBC, transfuse 1 unit of PRBC if hemoglobin less than seven, replace electrolytes IV per protocol, continue to follow surgical input and recommendation, pending LTAC. Patient to continue broad-spectrum IV antibiotics with the meropenem, linezolid. Family at bedside, updated 08/06 the patient has been seen and examined during rounding, during my visit physical therapy evaluated the patient, noted to have swollen to the left upper extremity at the site of the PICC line. The patient remains hemodynamically stable, BP 120/78, afebrile, saturating normal on room air. Case discussed with the RN, TPN discontinued yesterday, patient is started on clear liquid diet. WBC still elevated 25.7, hemoglobin 8.7, hematocrit 27.1, platelet count of 313. We will follow repeat CMP today as potassium insulin drip 0.4 with magnesium 1.7. We will discuss discharge plan with case management, patient may benefit from discharge to LTAC as the patient with persistent leukocytosis and getting broad-spectrum IV antibiotics with meropenem and linezolid IV. We will request speech therapy to evaluate the patient. Per discussion with the RN the patient had low blood glucose in the 50s today, we will hold Lantus, continue only sliding scale, patient with a Troy catheter, we will do bladder training, Doppler of the left upper extremity ordered. at bedside, updated. 08/07 the patient has been seen and examined, remains comfortably in bed, patient remains admitted to the medical floor, remains hemodynamically stable, blood pressure 140/89, afebrile, saturating normal on room air. Yesterday she was noted to have swollen to the left arm with a PICC line , a Doppler was done, no evidence of deep venous thrombosis. Left arm kept elevated, less swelling noted today. TPN discontinued and patient started on clear liquid diet, speech therapy consulted, patient is started on GI soft diet. Leukocytosis today improving, 12.9, hemoglobin dropped to 7.5, hematocrit 24.2, potassium 3.5, magnesium 2.0. We will give potassium chloride 40 mEq p.o. x1, serial CBC q.8 hours, transfuse 1 unit of PRBC if hemoglobin less than seven, we will check stool occult blood. at bedside, updated. 08/08 patient is seen and examined at bedside, case discussed with the RN, no acute events overnight, blood pressure 156/86, heart rate of 102, afebrile, saturating normal on room air. Sodium 141, potassium 3.5, BUN of 26, 0.9, magnesium 1.7, we will give magnesium sulfate 2 g IV x1, follow CBC, transfuse as needed. 08/09 patient remains admitted to the medical floor, remains hemodynamically stable, blood pressure 134/70, afebrile, saturating normal on room air. H emoglobin has remained stable at 7.4, no signs of active bleeding, melena, no hematochezia, no hematemesis, no hematuria. Patient remains on GI soft diet, tolerating well. Case management has been consulted, pending insurance approval [facility]. 08/10 patient is seen and examined at bedside, case discussed with the RN, remains hemodynamically stable, at bedside, updated, pending insurance approval for the [facility]. 08/11 patient is seen and examined at bedside, comfortably in bed, alert oriented x3, at bedside. Case discussed with the RN, remains hemodynamically stable, initially was pending to discharge to [facility] as the patient was on TPN, successfully weaned off, currently tolerating diet, left upper extremity was swollen at PICC line site, Doppler negative for DVT, overall condition of the patient is slowly continues to improve. Currently pending insurance approval for the [facility] to [facility]. REVIEW OF SYSTEMS 12 point ROS negative unless noted in HPI PHYSICAL EXAM GENERAL APPEARANCE: Patient intubated, on mechanical ventilation. NEUROLOGICAL: Cranial nerves II-XII grossly intact. Motor is 5/5 in bilateral upper and lower extremities proximal to distal. No sensory deficits. HEENT: Face is symmetric. Pupils are equal and reactive. Extraocular movements are intact. NECK: Supple. No JVD. No thyromegaly. No submental, submandibular, pre-/postauricular, occipital or supraclavicular lymphadenopathy. CHEST: Normal chest expansion. No Telemetry. LUNGS: Absence of any rales, rhonchi or any wheezing. CARDIOVASCULAR: Regular. S1 and S2 normal. No appreciable rubs, murmurs or gallops. ABDOMEN: Abdominal wound VAC in place : Deferred. No Troy. EXTREMITIES: Non-edematous and not cyanotic. No clubbing. Good capillary refill. SKIN: No skin breakdown. Vital Signs (last 8hr) Date Time Temp Pulse Resp B/P (MAP) Pulse Ox O2 Delivery O2 Flow Rate FiO2 08/11/24 08:00 97.3 89 19 140/93 100 Room Air 08/11/24 06:50 89 18 N/A Room Air 21 08/11/24 06:49 89 18 08/11/24 04:48 97.7 83 18 126/61 98 Room Air LABS: Laboratory: Test 08/11/24 05:17 08/11/24 04:04 08/10/24 15:49 Range/Units Whole Blood Glucose 143 H 70-110 MG/DL White Blood Count 5.9 4.8-10.8 K/uL Red Blood Count 2.80 L 4.00-5.50 MIL/uL Hemoglobin 7.3 L 12.0-16.0 g/dL Hematocrit 24.3 L 36-48 % Mean Corpuscular Volume 86.8 79-99 fL Mean Corpuscular Hemoglobin 26.1 L 27.0-33.0 pg Mean Corpuscular Hemoglobin Concent 30.0 L 32.0-36.0 g/dL Red Cell Distribution Width 17.3 H 11.0-15.5 % Platelet Count 450 H 130-400 K/uL Mean Platelet Volume 10.2 7.5-10.5 fL Nucleated Red Blood Cells 0.0 0.0-0.19 % Sodium Level 141 136-145 mmol/L Potassium Level 3.1 L 3.5-5.1 mmol/L Chloride Level 106 101-111 mmol/L Carbon Dioxide Level 27 21-32 mmol/L Blood Urea Nitrogen 22 H 7-18 mg/dL Creatinine 0.9 0.5-1.0 mg/dL Glomerular Filtration Rate Calc 73 >90 mL/min Random Glucose 148 H 70-105 mg/dL Total Calcium 8.5 8.5-10.1 mg/dL Magnesium Level 2.00 1.80-2.40 mg/dL Total Bilirubin 0.4 0.2-1.0 mg/dL Aspartate Amino Transf (AST/SGOT) 20 10-37 U/L Alanine Aminotransferase (ALT/SGPT) 35 12-78 U/L Alkaline Phosphatase 394 H 50-136 U/L Total Protein 5.2 L 6.0-8.3 g/dL Albumin 1.4 L 3.5-5.0 g/dL Bedside Glucose Comment Notified Nurse Current Medications Medications (Trade) Dose Ordered Sig/Alexandra Route PRN Reason Start Time Stop Time Status Last Admin Dose Admin Acetaminophen (TYLenol 325MG TAB) 650 mg Q4H PRN PO TEMPERATURE GREATER THAN 101.5 08/06/24 23:30 09/05/24 23:29 08/07/24 08:16 650 MG Acetaminophen (TYLenol 325MG TAB) 650 mg Q4H PRN PO PAIN LEVEL 1 TO 3 08/09/24 05:00 09/08/24 04:59 08/10/24 00:14 650 MG Albumin Human 100 ml @ 50 mls/hr AD IV 07/28/24 08:00 07/31/24 07:59 DC Azathioprine (Imuran) 50 mg AD PO 08/10/24 19:30 08/10/24 20:23 DC Cefepime HCl (MAXipime 2 gm vial) 2 gm Q24H IVPB 07/26/24 22:00 07/27/24 14:55 DC 07/26/24 22:54 2 GM Dexmedetomidine/ Sodium Chloride (PRECEdex 400MCG/ 100ML-NS) 400 mcg PROTOCOL PRN IV agitation 07/29/24 14:00 08/03/24 13:31 DC 07/30/24 01:18 400 MCG Dextrose (D50w) 50 ml AD PRN IV HYPOGLYCEMIA PROTOCOL 07/27/24 16:00 08/26/24 15:59 08/07/24 00:07 50 ML Enoxaparin Sodium (Lovenox) 40 mg DAILY SQ 08/07/24 09:00 09/06/24 08:59 08/11/24 08:49 40 MG Famotidine (Pepcid 20mg Vial) 20 mg Q24H IV 07/25/24 21:00 08/24/24 20:59 08/10/24 20:34 20 MG Fat Emulsion Intravenous 250 ml @ 42 mls/hr QMOFR IV 07/29/24 09:00 08/05/24 16:31 DC 08/05/24 09:35 42 MLS/HR Fentanyl Citrate 100 ml @ 0 mls/hr PROTOCOL IV 07/26/24 13:30 07/27/24 12:04 DC Fentanyl Citrate 100 ml @ 0 mls/hr PROTOCOL IV 07/27/24 12:30 07/29/24 13:42 DC 07/29/24 02:03 5 MLS/HR Fentanyl/Sodium Chloride 250 ml @ 0.1 mls/hr PROTOCOL IV 07/27/24 12:00 07/27/24 12:05 DC Fluconazole/ Sodium Chloride 100 ml @ 100 mls/hr Q24H IV 07/26/24 13:30 08/25/24 13:29 08/10/24 12:58 100 MLS/HR Furosemide (LASix 20MG VIAL) 20 mg Q8H IV 07/28/24 15:30 08/27/24 15:29 08/11/24 06:24 20 MG Glucagon (Glucagon 1mg Kit) 1 mg AD PRN IM HYPOGLYCEMIA PROTOCOL 07/27/24 16:00 08/26/24 15:59 Home Med (Home Medication) WEEKLY PO 08/10/24 20:30 09/09/24 20:29 Home Med (Home Medication) (Mesalamine 1.2 GM 2 TAB) DAILY PO 08/11/24 09:00 09/10/24 08:59 Hydralazine HCl (APRESOLine 20MG INJ) 5 mg Q6H PRN IV ADMINISTER FOR SBP > 160 08/08/24 12:30 09/07/24 12:29 Hydromorphone HCl (DiLAUDid 0.5MG INJ) 0.5 mg Q4H PRN IVP SEVERE PAIN (7-10) 07/29/24 14:00 08/03/24 13:59 DC 08/02/24 11:44 0.5 MG Insulin Glargine (LANtus 100 UNITS/ML 10 ML VIAL) 5 units HS SQ 07/27/24 21:00 07/29/24 09:47 DC 07/28/24 20:48 5 UNITS Insulin Glargine (LANtus 100 UNITS/ML 10 ML VIAL) 15 units BID SQ 07/29/24 21:00 08/06/24 12:06 DC 08/05/24 21:42 15 UNITS Insulin Glargine (LANtus 100 UNITS/ML 10 ML VIAL) 15 units HS SQ 07/29/24 21:00 07/29/24 13:43 DC Insulin Human Regular (humuLIN R 100 UNIT/ML 3ML) INSULIN SLIDING SCAL... ACHS SQ 08/08/24 21:00 09/07/24 20:59 Insulin Human Regular (humuLIN R 100 UNIT/ML 3ML) INSULIN SLIDING SCAL... Q6H6 SQ 07/26/24 00:00 08/08/24 19:44 DC 08/08/24 18:45 3 UNIT Ipratropium [place] (AtrovENT UD) 0.5 mg [id number] IH 07/30/24 18:00 08/29/24 17:59 08/11/24 06:48 0.5 MG Linezolid 300 ml @ 150 mls/hr Q12H IV 08/03/24 13:00 08/10/24 19:43 DC 08/10/24 12:58 150 MLS/HR Linezolid 300 ml @ 150 mls/hr Q12H IV 08/11/24 01:00 08/21/24 00:59 08/11/24 00:42 150 MLS/HR Magnesium Sulfate 50 ml @ 0 mls/hr PROTOCOL IV 08/06/24 13:00 08/08/24 12:12 DC Magnesium Sulfate 50 ml @ 0 mls/hr PROTOCOL IV 08/08/24 12:30 09/07/24 12:29 08/10/24 06:17 25 MLS/HR Magnesium Sulfate 50 ml @ 0 mls/hr PROTOCOL PRN IV hypomagnesemia 07/25/24 18:00 08/06/24 17:19 DC 08/06/24 10:01 0 MLS/HR Melatonin (Melatonin) 5 mg HS PO 08/10/24 21:00 09/09/24 20:59 08/10/24 20:34 5 MG Meropenem (Merrem 1gm) 1 gm Q12H IVPB 07/27/24 15:30 08/03/24 03:31 DC 08/03/24 03:31 1 GM Meropenem (Merrem 1gm) 1 gm Q12H IVPB 08/03/24 15:30 08/10/24 03:31 DC 08/10/24 02:49 1 GM Meropenem (Merrem 1gm) 1 gm Q12H IVPB 08/10/24 20:00 08/17/24 08:01 08/11/24 08:48 1 GM Metoprolol Tartrate (loprESSOR) 2.5 mg Q12H9 IV 07/31/24 21:00 08/09/24 11:33 DC 08/08/24 20:38 2.5 MG Metoprolol Tartrate (loprESSOR) 25 mg BID PO 08/08/24 12:30 09/07/24 12:29 08/11/24 08:48 25 MG Midazolam HCl 50 ml @ 0 mls/hr PROTOCOL IV 07/26/24 13:30 07/29/24 13:42 DC Nystatin (MycoSTATin 30 GM CREAM) 1 APPL BID TP 07/31/24 21:00 08/30/24 20:59 08/11/24 08:55 1 APPL Ondansetron HCl (zoFRAN 4MG INJ) 4 mg Q6H PRN IVP NAUSEA/VOMITING 07/25/24 18:00 08/24/24 17:59 08/03/24 15:32 4 MG Pharmacy Profile Note (Lace Assessment) 1 each AD MISC 07/27/24 15:30 07/27/24 15:14 DC Pharmacy Profile Note (Lace Assessment) 1 each AD MISC 08/03/24 11:00 08/03/24 11:10 DC Pharmacy Profile Note (Pharmacy Communication) 1 each ONCE MISC 07/27/24 15:00 07/28/24 07:29 DC Pharmacy Profile Note (Pharmacy Communication) 1 each ONCE MISC 08/03/24 11:00 08/03/24 11:47 DC Pharmacy Profile Note (Pharmacy Communication) 1 each ONCE MISC 08/03/24 11:00 08/03/24 11:53 DC Pharmacy Profile Note (Pharmacy Communication) PLEASE CLERIFY WHEN... Q30MIN MISC 08/10/24 20:00 08/11/24 06:53 DC Pharmacy Profile Note (Pharmacy Communication) POLEASE CLARIFY DIRECTI... Q30MIN MISC 08/10/24 20:00 08/10/24 20:23 DC Phenol (Sore Throat Dickson) 1 spry Q4H PRN PO SORE THROAT 08/01/24 05:00 08/31/24 04:59 08/03/24 10:19 1 SPRY Phenylephrine HCl 100 mg/Sodium Chloride 250 ml @ 0 mls/hr AD PRN IV TITRATE 07/26/24 13:30 08/03/24 13:31 DC 07/30/24 04:41 9.52 MLS/HR Piperacillin Sod/ Tazobactam Sod (Zosyn 3.375gm+NS 50ml) 3.375 gm Q12H IV 07/25/24 20:00 07/25/24 17:27 DC Piperacillin Sod/ Tazobactam Sod (Zosyn 3.375gm+NS 50ml) 3.375 gm Q8H IVPB 07/25/24 19:00 07/26/24 21:40 DC 07/26/24 19:40 3.375 GM Piperacillin Sod/ Tazobactam Sod (Zosyn 3.375gm+NS 50ml) 3.375 gm Q8H IVPB 07/25/24 20:00 07/25/24 18:49 DC Potassium Chloride 100 ml @ 50 mls/hr AD PRN IV POTASSIUM PROTOCOL 07/25/24 18:00 08/24/24 17:59 08/06/24 16:20 50 MLS/HR Potassium Chloride (K-Dur/Klor-Con 20meq) 20 meq AD PRN PO POTASSIUM PROTOCOL 08/06/24 12:30 09/05/24 12:29 08/11/24 08:48 20 MEQ Potassium Chloride (KCl 10% Elixir 20meq/15ml) 20 meq AD PRN PO POTASSIUM PROTOCOL 08/06/24 12:30 09/05/24 12:29 08/06/24 12:49 20 MEQ Propofol 100 ml @ 0 mls/hr AD PRN IV TITRATE 07/26/24 13:30 07/29/24 13:42 DC 07/29/24 02:49 12.2 MLS/HR Sodium Chloride 1,000 ml @ 50 mls/hr Q20H IV 08/04/24 11:30 08/06/24 12:06 DC 08/06/24 09:10 50 MLS/HR Sodium Chloride 1,000 ml @ 125 mls/hr Q8H IV 07/25/24 17:30 07/27/24 16:01 DC 07/27/24 07:58 125 MLS/HR Sodium Chloride (NS 50ml) 50 ml AD IV 07/25/24 17:00 07/25/24 17:29 DC Vancomycin HCl 250 ml @ 125 mls/hr Q12H IV 07/31/24 04:00 08/02/24 04:37 DC 08/01/24 03:10 125 MLS/HR Vancomycin HCl 250 ml @ 125 mls/hr Q12H IV 08/02/24 05:00 08/03/24 11:09 DC 08/02/24 17:22 125 MLS/HR Vancomycin HCl 250 ml @ 125 mls/hr Q24H IV 07/26/24 17:00 07/27/24 15:09 DC 07/26/24 19:55 125 MLS/HR Vancomycin HCl (Vancomycin Protocol) 1 each AD IV 07/25/24 17:00 07/27/24 14:55 DC Vancomycin HCl (Vancomycin Protocol) 1 each AD IV 07/30/24 15:00 08/03/24 11:09 DC Wound Care/ Dressing Products (Venelex Ointment) BID TP 07/31/24 21:00 08/30/24 20:59 08/11/24 08:56 1 GM DIAGNOSTICS / RADIOLOGY: [ ] ASSESSMENT: Septic shock requiring pressors Bacterial peritonitis POA Bowel perforation w/ [id number] S/P exploratory laparotomy with drainage of intra-abdominal abscess/ventral her bessy repair/small-bowel resection/NS of adhesions/left open and a wound VAC on 07/26/24 per High risk for ischemic bowel-POA Intractable abdominal pain-POA Acute hypokalemia-POA this is Dehydration-POA SHARMILA not POA Lactic acidosis-POA Hyperglycemia 2/2 uncontrolled diabetes mellitus Primary HTN HX of colitis HX of inflammatory bowel disease (Crohn's Disease) HX of cardiac arrest HX of BLE cellulitis Recent hospitalization for UTI with outpatient Zosyn antibiotic \ PLAN: Patient remains admitted to the medical floor Patient on GI soft diet, tolerating well Continue To follow CBC transfuse as needed Continue to follow surgical input and recommendation Doppler of the left lower extremity negative for DVT Case management consulted, pending acceptance to [facility], pending insurance approval. NEURO: Minimize central acting medications as possible. Fall Precautions. Well lighted room through the day and minimize interruptions through the night to prevent acute delirium. PULMONARY: Supplemental 02 as needed BiPAP as necessary, for respiratory distress Titrate Fio2 to keep Spo2 > or = 90% DuoNebs and CPT as needed IS hourly while awake for pulmonary hygiene prn Out of bed to chair as tolerated Maintain aspiration precautions at all times CARDIOVASCULAR: Follow hemodynamics. Vital signs per facility protocol GI & NUTRITION: Continue nutritional support Aspirations precautions Prokinetic agents and laxatives as needed KIDNEYS & ELECTROLYTES: Strict monitoring of intake and output Daily weights Avoid nephrotoxic agents Monitor electrolytes and replace as needed Goal urine output of 30mL/hr or 0.5mL/kg/hr Medications to be dosed according to renal function. Avoid contrast if possible ENDOCRINE: Maintain blood glucose between 100-180 at all times. Insulin sliding scale for blood glucose management Hypoglycemia and hyperglycemia protocol in place INFECTIOUS DISEASE: Trend temperature, WBC and procalcitonin level Follow cultures, deescalate antibiotics as soon as possible. Panculture if new onset fever HEMATOLOGY & COAGULATION: Monitor H&H. Keep Hgb > 7 Transfuse 1 unit of PRBC for Hgb < 7 Transfuse 1 pack of platelets of platelets < 20, 000 Watch for any signs and symptoms of bleeding SKIN: Pressure ulcer prevention per facility protocol Specialty mattress as needed ORTHO/REHAB Continue PT/OT PRN: MEDICATIONS Tylenol 650 mg po every 4 hrs for fever zofran 4 mg IV every 6 hrs for n/v Hydralazine 5 mg IV every 4 hrs systolic pressure > 160 bowel regiment: lactulose 20 gm PO BID PRN constipation Supportive measures: Continue GI and DVT prophylaxis Disposition: Pending improvement in clinical condition All questions answered time spent: > 35 min MICKEY FINNEY MD Aug 11, 2024 10:03
--- NOTE | 2024-08-11 20:35 | NUR ---
MEDS SHIFT ASSESSMENT DONE, PLEASE REFER TO CHART. DUE MEDS ADMINISTERED, TOLERATED WELL. RE-POSITIONED COMFORTABLY IN BED. CALL LIGHT WITHIN REACH. FAMILY AT BED SIDE.
[2024-08-12] VITALS (11 sets, daily range): BP systolic 124–167; BP diastolic 69–92; PULSE 80–93; RESP 17–20; TEMP 97.5–98.9; O2SAT 97–99
[2024-08-12 04:56] LABS: MAGNESIUM 1.5 mg/dL (1.80-2.40); POTASSIUM 3.2 mmol/L (3.5-5.1)
--- NOTE | 2024-08-12 06:00 | NUR ---
BATHE ELECTROLYTE REPLACEMENT STARTED PER PROTOCOL AND DUE LASIX DOSE ADMINISTERED. ASSISTED PCP TO GIVE PT A BED BATH, TOLERATED ACTIVITY WELL. RE-POSITIONED COMFORTABLY IN BED. CALL LIGHT WITHIN REACH. FOR MORE CARE. PT'S SPOUSE REMINDED ON HOME MED IMURAN TO BRING FOR RECONCILIATION. WILL ENDORSE TO AM SHIFT.
--- NOTE | 2024-08-12 10:00 | NUR ---
ROUND AT BEDSIDE. MESSAGED IF BYRON DRAINS CAN BE TAKEN OUT. STILL PENDING RESPONSE. NO FURTHER ORDERS AT THIS TIME.
--- NOTE | 2024-08-12 10:13 | PN ---
INFECTIOUS DISEASE FOLLOWUP NOTE DATE OF SERVICE: 08/11/2024 SUBJECTIVE: The patient is seen and examined at bedside today. The patient has no fever, no chills. No rashes or itchiness. The patient remains bedbound. Appetite is improving. no slurred speech. PHYSICAL EXAMINATION: VITAL SIGNS: Temperature 97.5. EYES: No icterus. Pupils are equal and reactive. HENT: No oral lesion seen. Moist oral mucosa. NECK: Supple. No JVD or thyromegaly. LUNGS: Good air entry. No rales. No rhonchi. CARDIOVASCULAR: S1 and S2 regular. No murmur heard. ABDOMEN: Obese, soft, nontender. Bowel sound is present. CENTRAL NERVOUS SYSTEM: Awake, alert, oriented x 3. Bedbound debility. SKIN: No rashes, no itchiness. LYMPHATIC: No peripheral lymphadenopathy. HEMATOLOGIC: No bleeding or petechial lesions seen. ASSESSMENT: A 59-year-old female with multiple problems, which include: * Septic shock, resolved. * Intestinal perforation, status post surgery. * Intraabdominal abscess. * Peritonitis. * Morbid obesity. * History of colitis. PLAN: * Continue cefepime. * Continue vancomycin. * Continue pain management. * Continue nutritional support. * Continue DVT prophylaxis. * Monitor electrolytes. * The patient will be followed up closely. TID: [id number] RECEIPT: [id number]
--- NOTE | 2024-08-12 12:50 | PN ---
[facility] PROGRESS NOTE Date of Service: Aug 12, 2024 Time of Service: 12:49 SUBJECTIVE: 59-year-old female the past medical history of hypertension who presented to the hospital secondary to abdominal pain. Patient stated for the past 3-4 days she has been having increasing abdominal pain with abdominal distention. She was feeling nauseated and had episodes of emesis at home. She denied any hematemesis, melena, hematochezia. Patient was previously hospitalized in [facility] around one month ago secondary to colitis. GI was consulted during admission and patient underwent colonoscopy with findings showing severe inflammation of the entire colon concerning for pancolitis. She was treated with IV steroids and and was to start patient on Remicade as outpatient. She denied any fever, chills, diarrhea. She was going to follow up with GI as outpatient on 07/26/24 but had worsening pain which caused her to come to the hospital for further evaluation. Labs in the ED were notable for white count of 10.3, hemoglobin was 12.8, platelet count was 363 K, sodium was 138, potassium was 2.8, creatinine is 1.0, blood glucose was 269, lactic acid on presentation was 8.[address] abdomen pelvis which showed free intraperitoneal air concerning for bowel perforation. There is a anterior ventral wall hernia with bowel content and air collection and fat stranding concerning for bowel perforation. Her colon was also noted to be inflamed. CT was performed without contrast. 07/26 BP 135/83, tachycardic 102, saturating 100% 2 L nasal cannula. CBC shows hemoglobin 11.0, hematocrit 35.9, WBC 18.8, platelet count of 203. Sodium 141, potassium 3.7, BUN of 29, creatinine slightly worse today at 1.2. ABG with pH 7.51, pCO2 of 28, PO2 62.6, bicarb of 22.5. Serology to include influenza, SARS and group A negative. Results of chest x-ray pending. Patient is scheduled to be taken to the OR today. 07/27 the patient remains admitted to the intensive care unit, intubated, on mechanical ventilation, status post exploratory laparotomy, postoperative day one, case discussed with the RN, patient on propofol, Jose Armando-Synephrine, wound VAC to the abdomen in place, noted to have right IJ line in place. Getting broad- spectrum IV antibiotics. Blood pressure 130/79, heart rate of 83, saturating 100% on mechanical ventilation, FiO2 40%. Leukocytosis is worse today at 28.1, drop in hemoglobin to 9.7, hematocrit 30.8, with a platelet count of 148. Potassium level 3.6, magnesium 1.6. Lactic acid from 8.2 down to 1.8 ABG with pH 7.4, pCO2 34, PO2 145, bicarb of 20. Chest x-ray shows bilateral lower lung infiltrates. Family at Bedside, updated 07/28 the patient has been seen and examined in the intensive care unit, she remains intubated, mechanical ventilation, on fentanyl, propofol and Jose Armando- Synephrine, getting broad-spectrum antibiotics, BP 112/84, afebrile, saturating 100% on mechanical ventilation, FiO2 40%. CBC with a hemoglobin 8.4, hematocrit 27.8, WBC of 16.3, platelet count of 89. Patient is status post exploratory laparotomy with drainage of intra-abdominal abscess/ventral hernia repair/small- bowel resection/NS of adhesions/left open and wound VAC on 07/23 05/28 by General surgery. Results of septic workup reviewed, Gram-negative rods. Patient with a possible ischemic colitis, plan to take the patient back to the operating room for further exploration. 07/29 Pt seen at bedside, no acute events overnight. She is s/p ex-lap with cholecystectomy. Currently on pressors, will wean as able. Remains intubated, PEEP 5, FiO2 30%, will continue with daily sedation vacations. She is mildly tachycardic. She is NPO, continue TPN per general surgery. WBC increased from 16.3 up to 16.8, Hgb improved from 8.4 up to 8.6, platelets decreased from 89 do wn to 76 07/30 Pt seen at bedside, no acute events overnight. She is s/p ex-lap with small bowel resection, appendectomy and drainage of intraabdominal abscess with wound vac post op day 4, repeat ex-lap with cholecystectomy, repair of left flank and ventral hernias post op day 2. Currently on pressors, will wean as able. Remains intubated, PEEP 5, FiO2 30%, she was on sedation vacation, in no acute distress, possible extubation today, will defer to critical care. She is NPO, continue TPN per general surgery. WBC improved from 16.8 down to 10.6, Hgb stable at 8.3, similar to yesterday, platelets improved from 76 up to 90, remai nder of her labs are relatively unremarkable. 07/31 patient seen at bedside, no acute events overnight. She is status post ex lap with small-bowel resection, appendectomy and drainage of intra-abdominal abscess with wound VAC postop day five, repeat ex lap with cholecystectomy, repair of left flank and ventral hernias postop day three. She has been successfully extubated, we will continue to try and wean pressors. Hemoglobin stable at 7.2, similar to yesterday, platelets decreased from 119-98, potassium mildly low at 3.2, we will be repleted according to protocol, remainder of her labs are relatively unremarkable. 08/02 patient seen at bedside, no acute events overnight. She is status post ex lap with small-bowel resection, appendectomy and drainage of intra-abdominal abscess with wound VAC postop day 6 repeat ex lap with cholecystectomy, repair of left flank and ventral hernias postop day 4. She has been successfully extubated, and weaned off pressors. She was transfused yesterday, Hgb improved from 6.9 up to 9.7, platelets improved to 166, potassium mildly low at 3.2, we will be repleted according to protocol, remainder of her labs are relatively unremarkable. She continues on TPN, diet to be addressed by general surgery. Only complaint is continued xuna-incisional pain 08/03 patient seen at bedside, no acute events overnight. At bedside she is in no acute distress, she has no complaints. She is status post ex lap with small- bowel resection, appendectomy and drainage of intra-abdominal abscess with wound VAC postop day 7 repeat ex lap with cholecystectomy, repair of left flank and ventral hernias postop day 5. WBC increased from 8.0 up to 27.1, this seemed to be and anomaly so a repeat CBC was ordered and WBC increased again to 34.4. Patient has been bolused 1 L of LR, repeat lactic acid was ordered and was mildly elevated at 2.5, wounds were examined at bedside and found to be clean dry and intact with no drainage or erythema. The BYRON drains are still draining serosanguineous fluid there does not appear to be sick succus suggesting bowel perforation. Discussed case with General surgery and Infectious Disease, we agreed to order a CT scan of the abdomen/pelvis to determine if there is a new abscess forming. Patient has not had watery bowel movements to suggest C diff and she is already on fluconazole. Hemoglobin increased from 8.7 up to 11.2, remainder of her labs are relatively unremarkable. Antibiotics were adjusted to Zyvox and meropenem. Further recommendations per Infectious Disease and General surgery. 08/04 patient seen at bedside, no acute events overnight. She has no complaints at bedside, reports her pain has improved today. She was made NPO yesterday after she vomited, we will resume clear liquid diet per General surgery recommendations. She is hemodynamically stable saturating well on room air, her WBC improved from 34.4 down to 30.8, hemoglobin decreased from 11.2 down to 8.6, potassium decreased from 4.1 down to 3.2, remainder of her labs are relatively unremarkable. Pt has been referred for LTAC, follow up with case management 08/05 patient is seen and examined, comfortable in bed, following commands, nutri tional support via TPN, BP 123/75, heart rate of 103, afebrile, saturating 97% room air. CBC shows a hemoglobin of 7.7, hematocrit 24.6, WBC 23.2, platelet count of 266. Sodium 137, potassium 3.4, BUN of 49, creatinine 0.7. The patient remains NPO. We will recheck CBC, transfuse 1 unit of PRBC if hemoglobin less than seven, replace electrolytes IV per protocol, continue to follow surgical input and recommendation, pending LTAC. Patient to continue broad-spectrum IV antibiotics with the meropenem, linezolid. Family at bedside, updated 08/06 the patient has been seen and examined during rounding, during my visit physical therapy evaluated the patient, noted to have swollen to the left upper extremity at the site of the PICC line. The patient remains hemodynamically stable, BP 120/78, afebrile, saturating normal on room air. Case discussed with the RN, TPN discontinued yesterday, patient is started on clear liquid diet. WBC still elevated 25.7, hemoglobin 8.7, hematocrit 27.1, platelet count of 313. We will follow repeat CMP today as potassium insulin drip 0.4 with magnesium 1.7. We will discuss discharge plan with case management, patient may benefit from discharge to LTAC as the patient with persistent leukocytosis and getting broad-spectrum IV antibiotics with meropenem and linezolid IV. We will request speech therapy to evaluate the patient. Per discussion with the RN the patient had low blood glucose in the 50s today, we will hold Lantus, continue only sliding scale, patient with a Troy catheter, we will do bladder training, Doppler of the left upper extremity ordered. at bedside, updated. 08/07 the patient has been seen and examined, remains comfortably in bed, patient remains admitted to the medical floor, remains hemodynamically stable, blood pressure 140/89, afebrile, saturating normal on room air. Yesterday she was noted to have swollen to the left arm with a PICC line , a Doppler was done, no evidence of deep venous thrombosis. Left arm kept elevated, less swelling noted today. TPN discontinued and patient started on clear liquid diet, speech therapy consulted, patient is started on GI soft diet. Leukocytosis today improving, 12.9, hemoglobin dropped to 7.5, hematocrit 24.2, potassium 3.5, magnesium 2.0. We will give potassium chloride 40 mEq p.o. x1, serial CBC q.8 hours, transfuse 1 unit of PRBC if hemoglobin less than seven, we will check stool occult blood. at bedside, updated. 08/08 patient is seen and examined at bedside, case discussed with the RN, no acute events overnight, blood pressure 156/86, heart rate of 102, afebrile, saturating normal on room air. Sodium 141, potassium 3.5, BUN of 26, 0.9, magnesium 1.7, we will give magnesium sulfate 2 g IV x1, follow CBC, transfuse as needed. 08/09 patient remains admitted to the medical floor, remains hemodynamically stable, blood pressure 134/70, afebrile, saturating normal on room air. H emoglobin has remained stable at 7.4, no signs of active bleeding, melena, no hematochezia, no hematemesis, no hematuria. Patient remains on GI soft diet, tolerating well. Case management has been consulted, pending insurance approval for [facility]. 08/10 patient is seen and examined at bedside, case discussed with the RN, remains hemodynamically stable, at bedside, updated, pending insurance approval for the patient to be [facility] 08/11 patient is seen and examined at bedside, comfortably in bed, alert oriented x3, at bedside. Case discussed with the RN, remains hemodynamically stable, initially was pending to discharge to [facility] as the patient was on TPN, successfully weaned off, currently tolerating diet, left upper extremity was swollen at PICC line site, Doppler negative for DVT, overall condition of the patient is slowly continues to improve. Currently pending insurance approval for the patient to be accepted to [facility]. 08/12 No acute events overnight. Vitals unremarkable, lab holiday today. Pending rehab placement, will follow up with case management REVIEW OF SYSTEMS 12 point ROS negative unless noted in HPI PHYSICAL EXAM GENERAL APPEARANCE: Patient intubated, on mechanical ventilation. NEUROLOGICAL: Cranial nerves II-XII grossly intact. Motor is 5/5 in bilateral upper and lower extremities proximal to distal. No sensory deficits. HEENT: Face is symmetric. Pupils are equal and reactive. Extraocular movements are intact. NECK: Supple. No JVD. No thyromegaly. No submental, submandibular, pre- /postauricular, occipital or supraclavicular lymphadenopathy. CHEST: Normal chest expansion. No Telemetry. LUNGS: Absence of any rales, rhonchi or any wheezing. CARDIOVASCULAR: Regular. S1 and S2 normal. No appreciable rubs, murmurs or gallops. ABDOMEN: Abdominal wound VAC in place : Deferred. No Troy. EXTREMITIES: Non-edematous and not cyanotic. No clubbing. Good capillary refill. SKIN: No skin breakdown. Vital Signs (last 8hr) Date Time Temp Pulse Resp B/P (MAP) Pulse Ox O2 Delivery O2 Flow Rate FiO2 08/12/24 12:00 97.9 83 19 130/86 99 Room Air 21 08/12/24 11:21 80 18 08/12/24 08:17 84 18 N/A Room Air 21 08/12/24 08:00 99.0 85 18 167/86 99 Room Air 08/12/24 06:55 80 18 LABS: Laboratory: Test 08/12/24 10:59 08/12/24 03:58 08/11/24 15:59 08/11/24 04:04 Range/Units Whole Blood Glucose 169 H 70-110 MG/DL Potassium Level 3.2 L 3.5-5.1 mmol/L Magnesium Level 1.50 L 1.80-2.40 mg/dL Bedside Glucose Comment Notified Nurse White Blood Count 5.9 4.8-10.8 K/uL Red Blood Count 2.80 L 4.00-5.50 MIL/uL Hemoglobin 7.3 L 12.0-16.0 g/dL Hematocrit 24.3 L 36-48 % Mean Corpuscular Volume 86.8 79-99 fL Mean Corpuscular Hemoglobin 26.1 L 27.0-33.0 pg Mean Corpuscular Hemoglobin Concent 30.0 L 32.0-36.0 g/dL Red Cell Distribution Width 17.3 H 11.0-15.5 % Platelet Count 450 H 130-400 K/uL Mean Platelet Volume 10.2 7.5-10.5 fL Nucleated Red Blood Cells 0.0 0.0-0.19 % Sodium Level 141 136-145 mmol/L Chloride Level 106 101-111 mmol/L Carbon Dioxide Level 27 21-32 mmol/L Blood Urea Nitrogen 22 H 7-18 mg/dL Creatinine 0.9 0.5-1.0 mg/dL Glomerular Filtration Rate Calc 73 >90 mL/min Random Glucose 148 H 70-105 mg/dL Total Calcium 8.5 8.5-10.1 mg/dL Total Bilirubin 0.4 0.2-1.0 mg/dL Aspartate Amino Transf (AST/SGOT) 20 10-37 U/L Alanine Aminotransferase (ALT/SGPT) 35 12-78 U/L Alkaline Phosphatase 394 H 50-136 U/L Total Protein 5.2 L 6.0-8.3 g/dL Albumin 1.4 L 3.5-5.0 g/dL Current Medications Medications (Trade) Dose Ordered Sig/Alexandra Route PRN Reason Start Time Stop Time Status Last Admin Dose Admin Acetaminophen (TYLenol 325MG TAB) 650 mg Q4H PRN PO TEMPERATURE GREATER THAN 101.5 08/06/24 23:30 09/05/24 23:29 08/07/24 08:16 650 MG Acetaminophen (TYLenol 325MG TAB) 650 mg Q4H PRN PO PAIN LEVEL 1 TO 3 08/09/24 05:00 09/08/24 04:59 08/12/24 03:31 650 MG Albumin Human 100 ml @ 50 mls/hr AD IV 07/28/24 08:00 07/31/24 07:59 DC Azathioprine (Imuran) 50 mg AD PO 08/10/24 19:30 08/10/24 20:23 DC Cefepime HCl (MAXipime 2 gm vial) 2 gm Q24H IVPB 07/26/24 22:00 07/27/24 14:55 DC 07/26/24 22:54 2 GM Dexmedetomidine/ Sodium Chloride (PRECEdex 400MCG/ 100ML-NS) 400 mcg PROTOCOL PRN IV agitation 07/29/24 14:00 08/03/24 13:31 DC 07/30/24 01:18 400 MCG Dextrose (D50w) 50 ml AD PRN IV HYPOGLYCEMIA PROTOCOL 07/27/24 16:00 08/26/24 15:59 08/07/24 00:07 50 ML Enoxaparin Sodium (Lovenox) 40 mg DAILY SQ 08/07/24 09:00 09/06/24 08:59 08/12/24 09:59 40 MG Famotidine (Pepcid 20mg Vial) 20 mg Q24H IV 07/25/24 21:00 08/24/24 20:59 08/11/24 20:33 20 MG Fat Emulsion Intravenous 250 ml @ 42 mls/hr QMOFR IV 07/29/24 09:00 08/05/24 16:31 DC 08/05/24 09:35 42 MLS/HR Fentanyl Citrate 100 ml @ 0 mls/hr PROTOCOL IV 07/26/24 13:30 07/27/24 12:04 DC Fentanyl Citrate 100 ml @ 0 mls/hr PROTOCOL IV 07/27/24 12:30 07/29/24 13:42 DC 07/29/24 02:03 5 MLS/HR Fentanyl/Sodium Chloride 250 ml @ 0.1 mls/hr PROTOCOL IV 07/27/24 12:00 07/27/24 12:05 DC Fluconazole/ Sodium Chloride 100 ml @ 100 mls/hr Q24H IV 07/26/24 13:30 08/25/24 13:29 08/11/24 13:34 100 MLS/HR Furosemide (LASix 20MG VIAL) 20 mg Q8H IV 07/28/24 15:30 08/27/24 15:29 08/12/24 05:31 20 MG Glucagon (Glucagon 1mg Kit) 1 mg AD PRN IM HYPOGLYCEMIA PROTOCOL 07/27/24 16:00 08/26/24 15:59 Home Med (Home Medication) WEEKLY PO 08/10/24 20:30 09/09/24 20:29 Home Med (Home Medication) (Mesalamine 1.2 GM 2 TAB) DAILY PO 08/11/24 09:00 09/10/24 08:59 08/12/24 10:01 2 EACH Hydralazine HCl (APRESOLine 20MG INJ) 5 mg Q6H PRN IV ADMINISTER FOR SBP > 160 08/08/24 12:30 09/07/24 12:29 Hydromorphone HCl (DiLAUDid 0.5MG INJ) 0.5 mg Q4H PRN IVP SEVERE PAIN (7-10) 07/29/24 14:00 08/03/24 13:59 DC 08/02/24 11:44 0.5 MG Insulin Glargine (LANtus 100 UNITS/ML 10 ML VIAL) 5 units HS SQ 07/27/24 21:00 07/29/24 09:47 DC 07/28/24 20:48 5 UNITS Insulin Glargine (LANtus 100 UNITS/ML 10 ML VIAL) 15 units BID SQ 07/29/24 21:00 08/06/24 12:06 DC 08/05/24 21:42 15 UNITS Insulin Glargine (LANtus 100 UNITS/ML 10 ML VIAL) 15 units HS SQ 07/29/24 21:00 07/29/24 13:43 DC Insulin Human Regular (humuLIN R 100 UNIT/ML 3ML) INSULIN SLIDING SCAL... ACHS SQ 08/08/24 21:00 09/07/24 20:59 Insulin Human Regular (humuLIN R 100 UNIT/ML 3ML) INSULIN SLIDING SCAL... Q6H6 SQ 07/26/24 00:00 08/08/24 19:44 DC 08/08/24 18:45 3 UNIT Ipratropium [place] (AtrovENT UD) 0.5 mg [id number] IH 07/30/24 18:00 08/29/24 17:59 08/12/24 11:21 0.5 MG Linezolid 300 ml @ 150 mls/hr Q12H IV 08/03/24 13:00 08/10/24 19:43 DC 08/10/24 12:58 150 MLS/HR Linezolid 300 ml @ 150 mls/hr Q12H IV 08/11/24 01:00 08/21/24 00:59 08/12/24 12:30 150 MLS/HR Magnesium Sulfate 50 ml @ 0 mls/hr PROTOCOL IV 08/06/24 13:00 08/08/24 12:12 DC Magnesium Sulfate 50 ml @ 0 mls/hr PROTOCOL IV 08/08/24 12:30 09/07/24 12:29 08/12/24 05:30 25 MLS/HR Magnesium Sulfate 50 ml @ 0 mls/hr PROTOCOL PRN IV hypomagnesemia 07/25/24 18:00 08/06/24 17:19 DC 08/06/24 10:01 0 MLS/HR Melatonin (Melatonin) 5 mg HS PO 08/10/24 21:00 09/09/24 20:59 08/10/24 20:34 5 MG Meropenem (Merrem 1gm) 1 gm Q12H IVPB 07/27/24 15:30 08/03/24 03:31 DC 08/03/24 03:31 1 GM Meropenem (Merrem 1gm) 1 gm Q12H IVPB 08/03/24 15:30 08/10/24 03:31 DC 08/10/24 02:49 1 GM Meropenem (Merrem 1gm) 1 gm Q12H IVPB 08/10/24 20:00 08/17/24 08:01 08/12/24 09:58 1 GM Metoprolol Tartrate (loprESSOR) 2.5 mg Q12H9 IV 07/31/24 21:00 08/09/24 11:33 DC 08/08/24 20:38 2.5 MG Metoprolol Tartrate (loprESSOR) 25 mg BID PO 08/08/24 12:30 09/07/24 12:29 08/12/24 09:59 25 MG Midazolam HCl 50 ml @ 0 mls/hr PROTOCOL IV 07/26/24 13:30 07/29/24 13:42 DC Nystatin (MycoSTATin 30 GM CREAM) 1 APPL BID TP 07/31/24 21:00 08/30/24 20:59 08/12/24 10:01 1 APPL Ondansetron HCl (zoFRAN 4MG INJ) 4 mg Q6H PRN IVP NAUSEA/VOMITING 07/25/24 18:00 08/24/24 17:59 08/03/24 15:32 4 MG Pharmacy Profile Note (Lace Assessment) 1 each AD MISC 07/27/24 15:30 07/27/24 15:14 DC Pharmacy Profile Note (Lace Assessment) 1 each AD MISC 08/03/24 11:00 08/03/24 11:10 DC Pharmacy Profile Note (Pharmacy Communication) 1 each ONCE MISC 07/27/24 15:00 07/28/24 07:29 DC Pharmacy Profile Note (Pharmacy Communication) 1 each ONCE MISC 08/03/24 11:00 08/03/24 11:47 DC Pharmacy Profile Note (Pharmacy Communication) 1 each ONCE MISC 08/03/24 11:00 08/03/24 11:53 DC Pharmacy Profile Note (Pharmacy Communication) PLEASE CLERIFY WHEN... Q30MIN MISC 08/10/24 20:00 08/11/24 06:53 DC Pharmacy Profile Note (Pharmacy Communication) POLEASE CLARIFY DIRECTI... Q30MIN MISC 08/10/24 20:00 08/10/24 20:23 DC Phenol (Sore Throat [place]) 1 spry Q4H PRN PO SORE THROAT 08/01/24 05:00 08/31/24 04:59 08/03/24 10:19 1 SPRY Phenylephrine HCl 100 mg/Sodium Chloride 250 ml @ 0 mls/hr AD PRN IV TITRATE 07/26/24 13:30 08/03/24 13:31 DC 07/30/24 04:41 9.52 MLS/HR Piperacillin Sod/ Tazobactam Sod (Zosyn 3.375gm+NS 50ml) 3.375 gm Q12H IV 07/25/24 20:00 07/25/24 17:27 DC Piperacillin Sod/ Tazobactam Sod (Zosyn 3.375gm+NS 50ml) 3.375 gm Q8H IVPB 07/25/24 19:00 07/26/24 21:40 DC 07/26/24 19:40 3.375 GM Piperacillin Sod/ Tazobactam Sod (Zosyn 3.375gm+NS 50ml) 3.375 gm Q8H IVPB 07/25/24 20:00 07/25/24 18:49 DC Potassium Chloride 100 ml @ 50 mls/hr AD PRN IV POTASSIUM PROTOCOL 07/25/24 18:00 08/24/24 17:59 08/06/24 16:20 50 MLS/HR Potassium Chloride (K-Dur/Klor-Con 20meq) 20 meq AD PRN PO POTASSIUM PROTOCOL 08/06/24 12:30 09/05/24 12:29 08/12/24 09:59 20 MEQ Potassium Chloride (KCl 10% Elixir 20meq/15ml) 20 meq AD PRN PO POTASSIUM PROTOCOL 08/06/24 12:30 09/05/24 12:29 08/06/24 12:49 20 MEQ Propofol 100 ml @ 0 mls/hr AD PRN IV TITRATE 07/26/24 13:30 07/29/24 13:42 DC 07/29/24 02:49 12.2 MLS/HR Sodium Chloride 1,000 ml @ 50 mls/hr Q20H IV 08/04/24 11:30 08/06/24 12:06 DC 08/06/24 09:10 50 MLS/HR Sodium Chloride 1,000 ml @ 125 mls/hr Q8H IV 07/25/24 17:30 07/27/24 16:01 DC 07/27/24 07:58 125 MLS/HR Sodium Chloride (NS 50ml) 50 ml AD IV 07/25/24 17:00 07/25/24 17:29 DC Vancomycin HCl 250 ml @ 125 mls/hr Q12H IV 07/31/24 04:00 08/02/24 04:37 DC 08/01/24 03:10 125 MLS/HR Vancomycin HCl 250 ml @ 125 mls/hr Q12H IV 08/02/24 05:00 08/03/24 11:09 DC 08/02/24 17:22 125 MLS/HR Vancomycin HCl 250 ml @ 125 mls/hr Q24H IV 07/26/24 17:00 07/27/24 15:09 DC 07/26/24 19:55 125 MLS/HR Vancomycin HCl (Vancomycin Protocol) 1 each AD IV 07/25/24 17:00 07/27/24 14:55 DC Vancomycin HCl (Vancomycin Protocol) 1 each AD IV 07/30/24 15:00 08/03/24 11:09 DC Wound Care/ Dressing Products (Venelex Ointment) BID TP 07/31/24 21:00 08/30/24 20:59 08/12/24 10:01 1 GM DIAGNOSTICS / RADIOLOGY: [ ] ASSESSMENT: Septic shock requiring pressors Bacterial peritonitis POA Bowel perforation w/ [id number] S/P exploratory laparotomy with drainage of intra-abdominal abscess/ventral hernia repair/small-bowel resection/NS of adhesions/left open and a wound VAC on 07/26/24 per High risk for ischemic bowel-POA Intractable abdominal pain-POA Acute hypokalemia-POA this is Dehydration-POA SHARMILA not POA Lactic acidosis-POA Hyperglycemia 2/2 uncontrolled diabetes mellitus Primary HTN HX of colitis HX of inflammatory bowel disease (Crohn's Disease) HX of cardiac arrest HX of BLE cellulitis Recent hospitalization for UTI with outpatient Zosyn antibiotic \ PLAN: Patient remains admitted to the medical floor Patient on GI soft diet, tolerating well Continue To follow CBC transfuse as needed Continue to follow surgical input and recommendation Doppler of the left lower extremity negative for DVT Case management consulted, pending acceptance to [facility], pending insurance approval. NEURO: Minimize central acting medications as possible. Fall Precautions. Well lighted room through the day and minimize interruptions through the night to prevent acute delirium. PULMONARY: Supplemental 02 as needed BiPAP as necessary, for respiratory distress Titrate Fio2 to keep Spo2 > or = 90% DuoNebs and CPT as needed IS hourly while awake for pulmonary hygiene prn Out of bed to chair as tolerated Maintain aspiration precautions at all times CARDIOVASCULAR: Follow hemodynamics. Vital signs per facility protocol GI & NUTRITION: Continue nutritional support Aspirations precautions Prokinetic agents and laxatives as needed KIDNEYS & ELECTROLYTES: Strict monitoring of intake and output Daily weights Avoid nephrotoxic agents Monitor electrolytes and replace as needed Goal urine output of 30mL/hr or 0.5mL/kg/hr Medications to be dosed according to renal function. Avoid contrast if possible ENDOCRINE: Maintain blood glucose between 100-180 at all times. Insulin sliding scale for blood glucose management Hypoglycemia and hyperglycemia protocol in place INFECTIOUS DISEASE: Trend temperature, WBC and procalcitonin level Follow cultures, deescalate antibiotics as soon as possible. Panculture if new onset fever HEMATOLOGY & COAGULATION: Monitor H&H. Keep Hgb > 7 Transfuse 1 unit of PRBC for Hgb < 7 Transfuse 1 pack of platelets of platelets < 20, 000 Watch for any signs and symptoms of bleeding SKIN: Pressure ulcer prevention per facility protocol Specialty mattress as needed ORTHO/REHAB Continue PT/OT PRN: MEDICATIONS Tylenol 650 mg po every 4 hrs for fever zofran 4 mg IV every 6 hrs for n/v Hydralazine 5 mg IV every 4 hrs systolic pressure > 160 bowel regiment: lactulose 20 gm PO BID PRN constipation Supportive measures: Continue GI and DVT prophylaxis Disposition: Pending improvement in clinical condition All questions answered time spent: > 35 min FRANSICO HOWELL MD Aug 12, 2024 12:50
[2024-08-12] MEDS ORDERED: GLIM1TAB56 PO (12:59)
[2024-08-12] MEDS ORDERED: PANT40TA54 PO (12:59)
[2024-08-12] MEDS ORDERED: ONDA-105 PO (12:59)
--- NOTE | 2024-08-12 13:57 | NUR ---
PATRICIA MALIN AT BEDSIDE. EXPLAINED CT RESULTS TO PT. WILL BE DISCHARGED. EXPLAINED TO AVOID GREASY AND FATTY FOODS. PT ACKNOWLEDGED.
[2024-08-12] MEDS ORDERED: PRED20TA3 PO (14:46)
--- NOTE | 2024-08-12 14:46 | DS ---
Discharge Summary Hospital Course Summary: 59-year-old female the past medical history of hypertension who presented to the hospital secondary to abdominal pain. Patient stated for the past 3-4 days she has been having increasing abdominal pain with abdominal distention. She was feeling nauseated and had episodes of emesis at home. She denied any hematemesis, melena, hematochezia. Patient was previously hospitalized in [facility] around one month ago secondary to colitis. GI was consulted during admission and patient underwent colonoscopy with findings showing severe inflammation of the entire colon concerning for pancolitis. She was treated with IV steroids and and was to start patient on Remicade as out patient. She denied any fever, chills, diarrhea. She was going to follow up with GI as outpatient on 07/26/24 but had worsening pain which caused her to come to the hospital for further evaluation. Patient underwent a CT abdomen pelvis which showed free intraperitoneal air concerning for bowel perforation. There is a anterior ventral wall hernia with bowel content and air collection and fat stranding concerning for bowel perforation. Her colon was also noted to be inflamed. CT was performed without contrast. 07/26 BP 135/83, tachycardic 102, saturating 100% 2 L nasal cannula. CBC shows hemoglobin 11.0, hematocrit 35.9, WBC 18.8, platelet count of 203. Sodium 141, potassium 3.7, BUN of 29, creatinine slightly worse today at 1.2. ABG with pH 7.51, pCO2 of 28, PO2 62.6, bicarb of 22.5. Serology to include influenza, SARS and group A negative. Results of chest x-ray pending. Patient is scheduled to be taken to the OR today. 07/27 the patient remains admitted to the intensive care unit, intubated, on m echanical ventilation, status post exploratory laparotomy, postoperative day one, case discussed with the RN, patient on propofol, Jose Armando-Synephrine, wound VAC to the abdomen in place, noted to have right IJ line in place. Getting broad- spectrum IV antibiotics. Blood pressure 130/79, heart rate of 83, saturating 100% on mechanical ventilation, FiO2 40%. Leukocytosis is worse today at 28.1, drop in hemoglobin to 9.7, hematocrit 30.8, with a platelet count of 148. Potassium level 3.6, magnesium 1.6. Lactic acid from 8.2 down to 1.8 ABG with pH 7.4, pCO2 34, PO2 145, bicarb of 20. Chest x-ray shows bilateral lower lung infiltrates. Family at Bedside, updated 07/28 the patient has been seen and examined in the intensive care unit, she remains intubated, mechanical ventilation, on fentanyl, propofol and Jose Armando- Synephrine, getting broad-spectrum antibiotics, BP 112/84, afebrile, saturating 100% on mechanical ventilation, FiO2 40%. CBC with a hemoglobin 8.4, hematocrit 27.8, WBC of 16.3, platelet count of 89. Patient is status post exploratory laparotomy with drainage of intra-abdominal abscess/ventral hernia repair/small-bowel resection/NS of adhesions/left open and wound VAC on 07/23 05/28 by General surgery. Results of septic workup reviewed, Gram-negative rods. Patient with a possible ischemic colitis, plan to take the patient back to the operating room for further exploration. 07/29 Pt seen at bedside, no acute events overnight. She is s/p ex-lap with cholecystectomy. Currently on pressors, will wean as able. Remains intubated, PEEP 5, FiO2 30%, will continue with daily sedation vacations. She is mildly ta chycardic. She is NPO, continue TPN per general surgery. WBC increased from 16.3 up to 16.8, Hgb improved from 8.4 up to 8.6, platelets decreased from 89 down to 76 07/30 Pt seen at bedside, no acute events overnight. She is s/p ex-lap with small bowel resection, appendectomy and drainage of intraabdominal abscess with wound vac post op day 4, repeat ex-lap with cholecystectomy, repair of left flank and ventral hernias post op day 2. Currently on pressors, will wean as able. Remains intubated, PEEP 5, FiO2 30%, she was on sedation vacation, in no acute distress, possible extubation today, will defer to critical care. She is NPO, continue TPN per general surgery. WBC improved from 16.8 down to 10.6, Hgb stable at 8.3, similar to yesterday, platelets improved from 76 up to 90, remainder of her labs are relatively unremarkable. 07/31 patient seen at bedside, no acute events overnight. She is status post ex lap with small-bowel resection, appendectomy and drainage of intra-abdominal abscess with wound VAC postop day five, repeat ex lap with cholecystectomy, repair of left flank and ventral hernias postop day three. She has been s uccessfully extubated, we will continue to try and wean pressors. Hemoglobin stable at 7.2, similar to yesterday, platelets decreased from 119-98, potassium mildly low at 3.2, we will be repleted according to protocol, remainder of her labs are relatively unremarkable. 08/02 patient seen at bedside, no acute events overnight. She is status post ex lap with small-bowel resection, appendectomy and drainage of intra-abdominal abscess with wound VAC postop day 6 repeat ex lap with cholecystectomy, repair of left flank and ventral hernias postop day 4. She has been successfully extubated, and weaned off pressors. She was transfused yesterday, Hgb improved from 6.9 up to 9.7, platelets improved to 166, potassium mildly low at 3.2, we will be repleted according to protocol, remainder of her labs are relatively unremarkable. She continues on TPN, diet to be addressed by general surgery. Only complaint is continued xuan-incisional pain 08/03 patient seen at bedside, no acute events overnight. At bedside she is in no acute distress, she has no complaints. She is status post ex lap with small- bowel resection, appendectomy and drainage of intra-abdominal abscess with wound VAC postop day 7 repeat ex lap with cholecystectomy, repair of left flank and ventral hernias postop day 5. WBC increased from 8.0 up to 27.1, this seemed to be and anomaly so a repeat CBC was ordered and WBC increased again to 34.4. Patient has been bolused 1 L of LR, repeat lactic acid was ordered and was mildly elevated at 2.5, wounds were examined at bedside and found to be clean dry and intact with no drainage or erythema. The BYRON drains are still draining serosanguineous fluid there does not appear to be sick succus suggesting bowel perforation. Discussed case with General surgery and Infectious Disease, we agreed to order a CT scan of the abdomen/pelvis to determine if there is a new abscess forming. Patient has not had watery bowel movements to suggest C diff and she is already on fluconazole. Hemoglobin increased from 8.7 up to 11.2, remainder of her labs are relatively unremarkable. Antibiotics were adjusted to Zyvox and meropenem. Further recommendations per Infectious Disease and General surgery. 08/04 patient seen at bedside, no acute events overnight. She has no complaints at bedside, reports her pain has improved today. She was made NPO yesterday after she vomited, we will resume clear liquid diet per General surgery recommendations. She is hemodynamically stable saturating well on room air, her WBC improved from 34.4 down to 30.8, hemoglobin decreased from 11.2 down to 8.6, potassium decreased from 4.1 down to 3.2, remainder of her labs are relatively unremarkable. Pt has been referred for LTAC, follow up with case management 08/05 patient is seen and examined, comfortable in bed, following commands, nutritional support via TPN, BP 123/75, heart rate of 103, afebrile, saturating 97% room air. CBC shows a hemoglobin of 7.7, hematocrit 24.6, WBC 23.2, platelet count of 266. Sodium 137, potassium 3.4, BUN of 49, creatinine 0.7. The patient remains NPO. We will recheck CBC, transfuse 1 unit of PRBC if hemoglobin less than seven, replace electrolytes IV per protocol, continue to follow surgical input and recommendation, pending LTAC. Patient to continue broad-spectrum IV antibiotics with the meropenem, linezolid. Family at bedside, updated 08/06 the patient has been seen and examined during rounding, during my visit physical therapy evaluated the patient, noted to have swollen to the left upper extremity at the site of the PICC line. The patient remains hemodynamically stable, BP 120/78, afebrile, saturating normal on room air. Case discussed with the RN, TPN discontinued yesterday, patient is started on clear liquid diet. WBC still elevated 25.7, hemoglobin 8.7, hematocrit 27.1, platelet count of 313. We will follow repeat CMP today as potassium insulin drip 0.4 with magnesium 1.7. We will discuss discharge plan with case management, patient may benefit from discharge to LTAC as the patient with persistent leukocytosis and getting broad-spectrum IV antibiotics with meropenem and linezolid IV. We will request speech therapy to evaluate the patient. Per discussion with the RN the patient had low blood glucose in the 50s today, we will hold Lantus, continue only sliding scale, patient with a Troy catheter, we will do bladder training, Doppler of the left upper extremity ordered. at bedside, updated. 08/07 the patient has been seen and examined, remains comfortably in bed, patient remains admitted to the medical floor, remains hemodynamically stable, blood pressure 140/89, afebrile, saturating normal on room air. Yesterday she was noted to have swollen to the left arm with a PICC line , a Doppler was done, no evidence of deep venous thrombosis. Left arm kept elevated, less swelling noted today. TPN discontinued and patient started on clear liquid diet, speech therapy consulted, patient is started on GI soft diet. Leukocytosis today improving, 12.9, hemoglobin dropped to 7.5, hematocrit 24.2, potassium 3.5, magnesium 2.0. We will give potassium chloride 40 mEq p.o. x1, serial CBC q.8 hours, transfuse 1 unit of PRBC if hemoglobin less than seven, we will check stool occult blood. at bedside, updated. 08/08 patient is seen and examined at bedside, case discussed with the RN, no acute events overnight, blood pressure 156/86, heart rate of 102, afebrile, saturating normal on room air. Sodium 141, potassium 3.5, BUN of 26, 0.9, magnesium 1.7, we will give magnesium sulfate 2 g IV x1, follow CBC, transfuse as needed. 08/09 patient remains admitted to the medical floor, remains hemodynamically stable, blood pressure 134/70, afebrile, saturating normal on room air. Hemoglobin has remained stable at 7.4, no signs of active bleeding, melena, no hematochezia, no hematemesis, no hematuria. Patient remains on GI soft diet, tolerating well. Case management has been consulted, pending insurance approval for patient to be accepted to [facility]. 08/10 patient is seen and examined at bedside, case discussed with the RN, remains hemodynamically stable, at bedside, updated, pending insurance approval for the patient to be [facility]. 08/11 patient is seen and examined at bedside, comfortably in bed, alert oriented x3, at bedside. Case discussed with the RN, remains hemodynamically stable, initially was pending to discharge to [facility] as the patient was on TPN, successfully weaned off, currently tolerating diet, left upper extremity was swollen at PICC line site, Doppler negative for DVT, overall condition of the patient is slowly continues to improve. Currently pending insurance approval for the patient to be accepted to [facility]. On hospital day 18 she was accepted, BYRON drains were removed and she was transfe rred to continue recovery and rehab. Road Contractor(s): General Surgery Infectious Disease Pulmonology/Critical Care Gastroenterology Procedure(s): Exam Type: ABD 1VW Clinical Information: ABD DISTENDED Comparison: None Findings: Abdomen demonstrates no evidence of pathologic calcification or soft tissue mass. There are no radiopacities to suggest calculous disease. The intestinal gas pattern is within normal limits without evidence of dilatation to suggest obstruction or adynamic ileus. The bony structures are unremarkable. Laparotomy sutures. Pelvic surgical drains. IMPRESSION: Normal bowel gas pattern. US VENOUS DOPPLER UNILATERAL REASON: r/o dvt COMPARISON: None Technique: Left upper extremity venous doppler ultrasound was performed with spectral analysis and color flow imaging technique. FINDINGS: There is normal-appearing visualized portions of the subclavian vein. Axillary and brachial veins appear normal as does the basilic vein. There are some areas where the veins are partially collapsed but there is no evidence of deep venous thrombosis. IV catheter is noted in the basilic vein extending to the axillary vein into the subclavian vein. IMPRESSION: 1. No evidence of deep venous thrombosis in the left upper extremity. CT ABDOMEN/PELVIS W/O CONTRAST HISTORY: Recurrent abdominal abscess COMPARISON: 07/25/2024 TECHNIQUE: Multiple sequential axial images of the abdomen and pelvis were obtained from the dome of the diaphragm through symphysis pubis. Patient was not given contrast through intravenous route. Oral contrast was not given. FINDINGS: No pleural effusion is seen bilaterally. Bibasilar atelectasis changes are seen. There is no evidence of parenchymal disease or pulmonary nodule of the visualized lower lungs. Degenerative changes of the thoracolumbar spine are present. The heart is not enlarged. There is free intraperitoneal air with drainage tube. Gastric distention is seen. Mesenteric fat stranding seen. Small bowel dilatation is seen. Findings were present on previous study may be related to postoperative changes versus bowel perforation. Complex ascites fluid is also seen. Clinical correlation is recommended. The liver, spleen, adrenal glands and pancreas are unremarkable. There is no evidence of hydronephrosis bilaterally. No evidence of renal stone is seen. Fecal material is seen in the colon. There are normal size retroperitoneal and mesenteric lymph nodes. There is complex ascites. Atherosclerotic changes are present. Pelvic sidewalls are symmetric bilaterally. Bladder is well distended without wall thickening. IMPRESSION: 1. There is free intraperitoneal air with drainage tube. Mesenteric fat stranding seen. Small bowel dilatation is seen. Findings were present on previous study may be related to postoperative changes versus bowel perforation. Complex ascites fluid is also seen which is increased from previous study. Clinical correlation is recommended. CHEST 1VW HISTORY: Intubated COMPARISON: 07/31/2024 FINDINGS: A frontal projection of the chest was obtained. Right midlung linear atelectasis changes are seen. Mild bilateral pulmonary infiltrates are seen with right more than left. The heart is borderline enlarged. All the lines and tubes are again seen in place. No evidence of aortic calcification is seen. IMPRESSION: 1. Right midlung linear atelectasis changes are seen. Mild bilateral pulmonary infiltrates are seen. CT ABDOMEN WITH CONTRAST. CT PELVIS WITH CONTRAST INDICATION: Perforated bowel? TECHNIQUE: Routine transaxial images using 5 mm slice thickness were obtained after the intravenous infusion of 75 mL of Omnipaque 350 without adverse effects. Oral contrast was not administered. Rectal contrast was not administered. Coronal and sagittal reformatted images acquired for interpretation. CT was performed with one or more of the following dose reduction techniques: Automated exposure control, adjustment of the mA and/or kV according to patient size, or use of iterative reconstruction technique. COMPARISON: 07/25/2024 FINDINGS/IMPRESSION: Unchanged pneumoperitoneum and moderate air, fat, and small bowel loop-containing ventral hernia suggesting viscous perforation, and secondary mild submucosal edema and mild mucosal enhancement along the upstream jejunal loops compatible with enteritis or evolving ischemic bowel, without bowel obstruction at this juncture. Remainder of the study is also unchanged. General surgery consult is recommended. Assessment/Plan: Septic shock requiring pressors, resolved Bacterial peritonitis POA Bowel perforation w/ [id number] S/P exploratory laparotomy with drainage of intra-abdominal abscess/ventral hernia repair/small-bowel resection/NS of adhesions/left open and a wound VAC on 07/26/24 per Intractable abdominal pain, resolved POA Acute hypokalemia-POA, improving Dehydration-POA, resolved SHARMILA not POA, resolved Lactic acidosis-POA, resolved Hyperglycemia 2/2 uncontrolled diabetes mellitus Primary HTN HX of colitis HX of inflammatory bowel disease (Crohn's Disease) HX of cardiac arrest HX of BLE cellulitis Recent hospitalization for UTI with outpatient Zosyn antibiotic \ Discharge Instructions: [facility]. She will need eventual follow up with her PCP in 3-7 days General Surgery in 2 weeks Home Medications: Reported Medications Ondansetron HCl (Ondansetron HCl) 8 Mg Tablet, 1 TAB PO BID PRN for NAUSEA/VOMITING, 0 Refills 08/12/24 Glimepiride (Glimepiride) 1 Mg Tablet, 1 TAB PO BID, 0 Refills 08/12/24 Pantoprazole Sodium (Pantoprazole Sodium) 40 Mg Tablet.dr, 1 TAB PO DAILY, 0 Refills 08/12/24 Azathioprine (Imuran) 50 Mg Tablet, 1 TAB PO AD for 30 Days, #30 TAB 0 Refills 07/26/24 Cholecalciferol (Vitamin D3) (Vitamin D3) 125 Mcg (5000 Unit) Capsule, 1 CAP PO WEEKLY for 30 Days, #30 CAP 0 Refills 07/26/24 Mesalamine (Mesalamine) 1.2 Gram Tablet.dr, 2 TAB PO DAILY for 30 Days, #60 TAB 0 Refills 07/26/24 Discontinued Reported Medications Pantoprazole Sodium (Pantoprazole Sodium) 40 Mg Tablet.dr, 1 TAB PO DAILY for 30 Days, #30 TAB 0 Refills 07/26/24 Glimepiride (Glimepiride) 1 Mg Tablet, 1 TAB PO BID for 30 Days, #30 TAB 0 Refills 07/26/24 Potassium Chloride (Potassium Chloride) 20 Meq Tab.er.prt, 2 TAB PO DAILY for 30 Days, #30 TAB 0 Refills 07/26/24 Losartan/Hydrochlorothiazide (Losartan-Hctz 50-12.5 mg Tab) 50 Mg-12.5 Mg Tablet, 1 TAB PO DAILY for 30 Days, #30 TAB 0 Refills 06/14/24 Time spent arranging discharge: 31-60 minutes FRANSICO HOWELL MD Aug 12, 2024 14:46
[2024-08-12] MEDS ORDERED: DIATR MEGLU/DIATRIZOATE SODIUM 30 ML BOTTLE ONE (16:06)
[2024-08-12] MEDS ORDERED: IOHEXOL-350 75 ML VIAL IV ONE (18:14)
--- NOTE | 2024-08-12 19:02 | HMCIMG ---
CT ABDOMEN/PELVIS W/WO CONTRAS HISTORY: Intra-abdominal abscess COMPARISON: 08/03/2004 TECHNIQUE: Multiple sequential axial images of the abdomen and pelvis were obtained from the dome of the diaphragm through symphysis pubis. Patient was given 75 cc of Omnipaque through intravenous route. Oral contrast was given. FINDINGS: Bibasilar linear atelectasis changes are seen. No pleural effusion is seen bilaterally. There is no evidence of parenchymal disease or pulmonary nodule of the visualized lower lungs. Degenerative changes of the thoracolumbar spine are present. The heart is not enlarged. The liver, spleen, adrenal glands and pancreas are unremarkable. Postcholecystectomy changes are seen. Bilateral hydronephrosis and hydroureter most likely related to distended bladder with that on the obstruction. No evidence of renal stone is seen. Fecal material is seen in the colon. There are normal size retroperitoneal and mesenteric lymph nodes. There is small amount of loculated fluid collection in the right pelvis measuring 5.3 x 2.6 cm related to loculated ascites with early abscess not excluded. Accurate comparison to previous study is limited. Follow-up examination would be helpful. Mild small bowel dilatation is seen with air-fluid levels. Findings may be related to ileus with early bowel obstruction not completely excluded. Extensive mesenteric fat stranding is also seen. Atherosclerotic changes are present. Pelvic sidewalls are symmetric bilaterally. The bladder is distended with small amount of air collection. Postop changes are seen about the left hip with artifact dictation. IMPRESSION: 1. . There is small amount of loculated fluid collection in the right pelvis measuring 5.3 x 2.6 cm related to loculated ascites with early abscess not excluded. Accurate comparison to previous study is limited. Follow-up examination would be helpful. Mild small bowel dilatation is seen with air-fluid levels. Findings may be related to ileus with early bowel obstruction not completely excluded. Extensive mesenteric fat stranding is also seen. 2. Bilateral hydronephrosis and hydroureter most likely related to distended bladder. CT was performed with one or more following dose reduction techniques: automated exposure control, adjustment of the mA and kv according to patient's size, or use of a iterative reconstruction technique.
--- NOTE | 2024-08-12 20:20 | PN ---
GASTROENTEROLOGY PROGRESS NOTE Date of Visit: Aug 12, 2024 Time of Visit: 20:20 Events / Notes: [ ] Review of Systems: CONSTITUTIONAL: No malaise or change in sensation of wellbeing. ENMT: No rhinorrhea, otorrhea, sinus pain, ear ache. CARDIOVASCULAR: No angina, palpitations, orthopnea or paroxysmal dyspnea. RESPIRATORY: No SOB. GASTROINTESTINAL: No abdominal pain, nausea, vomiting, diarrhea, hematemesis, melena or change in the patient's habitual bowel movements consistency/number. GENITOURINARY: No dysuria, hematuria or change in bladder continence. MUSCULOSKELETAL: No new muscle pain or decrease in muscular strength. No new joint swelling, redness or tenderness. SKIN: No new rash. Physical Exam: GEN: Awake, alert, oriented in person, time and place, and in no acute distress. HEENT: No sinus tenderness. Tympanic membranes were not examined. No rhinorrhea. Oral pharyngeal mucosa is pink, moist and within normal limits. Neck is supple with no cervical lymphadenopathy, thyromegaly or JVD. CHEST: Inspection, palpation and percussion of the chest were unremarkable. Lung auscultation revealed normal breath sounds bilaterally. CARDIAC: PMI is within normal limits. Heart sounds are regular. Normal S1, S2. No gallop or murmur. ABD: Soft, non-tender and not distended. No peritoneal signs on palpation. No organomegaly. Normal bowel sounds. EXT: No cyanosis or clubbing. No edema. SKIN: Intact. No rashes. JOINTS: No evidence of synovitis or acute arthritis. NEURO: Alert and oriented to name, place and person. Cranial nerve examination is unremarkable. No focal motor deficits. Normal speech. Gait is normal. Strength is normal. Vital Signs (last 8hr) Date Time Temp Pulse Resp B/P (MAP) Pulse Ox O2 Delivery O2 Flow Rate FiO2 08/12/24 18:12 93 18 N/A Room Air 21 08/12/24 18:12 89 18 08/12/24 16:00 97.9 93 19 124/79 97 Room Air 21 Laboratory: [ ] Laboratory: Test 08/12/24 19:29 08/12/24 03:58 08/11/24 15:59 08/11/24 04:04 Range/Units Whole Blood Glucose 86 # 70-110 MG/DL Potassium Level 3.2 L 3.5-5.1 mmol/L Magnesium Level 1.50 L 1.80-2.40 mg/dL Bedside Glucose Comment Notified Nurse White Blood Count 5.9 4.8-10.8 K/uL Red Blood Count 2.80 L 4.00-5.50 MIL/uL Hemoglobin 7.3 L 12.0-16.0 g/dL Hematocrit 24.3 L 36-48 % Mean Corpuscular Volume 86.8 79-99 fL Mean Corpuscular Hemoglobin 26.1 L 27.0-33.0 pg Mean Corpuscular Hemoglobin Concent 30.0 L 32.0-36.0 g/dL Red Cell Distribution Width 17.3 H 11.0-15.5 % Platelet Count 450 H 130-400 K/uL Mean Platelet Volume 10.2 7.5-10.5 fL Nucleated Red Blood Cells 0.0 0.0-0.19 % Sodium Level 141 136-145 mmol/L Chloride Level 106 101-111 mmol/L Carbon Dioxide Level 27 21-32 mmol/L Blood Urea Nitrogen 22 H 7-18 mg/dL Creatinine 0.9 0.5-1.0 mg/dL Glomerular Filtration Rate Calc 73 >90 mL/min Random Glucose 148 H 70-105 mg/dL Total Calcium 8.5 8.5-10.1 mg/dL Total Bilirubin 0.4 0.2-1.0 mg/dL Aspartate Amino Transf (AST/SGOT) 20 10-37 U/L Alanine Aminotransferase (ALT/SGPT) 35 12-78 U/L Alkaline Phosphatase 394 H 50-136 U/L Total Protein 5.2 L 6.0-8.3 g/dL Albumin 1.4 L 3.5-5.0 g/dL Current Medications Medications (Trade) Dose Ordered Sig/Alexandra Route PRN Reason Start Time Stop Time Status Last Admin Dose Admin Acetaminophen (TYLenol 325MG TAB) 650 mg Q4H PRN PO TEMPERATURE GREATER THAN 101.5 08/06/24 23:30 09/05/24 23:29 08/07/24 08:16 650 MG Acetaminophen (TYLenol 325MG TAB) 650 mg Q4H PRN PO PAIN LEVEL 1 TO 3 08/09/24 05:00 09/08/24 04:59 08/12/24 03:31 650 MG Albumin Human 100 ml @ 50 mls/hr AD IV 07/28/24 08:00 07/31/24 07:59 DC Azathioprine (Imuran) 50 mg AD PO 08/10/24 19:30 08/10/24 20:23 DC Cefepime HCl (MAXipime 2 gm vial) 2 gm Q24H IVPB 07/26/24 22:00 07/27/24 14:55 DC 07/26/24 22:54 2 GM Dexmedetomidine/ Sodium Chloride (PRECEdex 400MCG/ 100ML-NS) 400 mcg PROTOCOL PRN IV agitation 07/29/24 14:00 08/03/24 13:31 DC 07/30/24 01:18 400 MCG Dextrose (D50w) 50 ml AD PRN IV HYPOGLYCEMIA PROTOCOL 07/27/24 16:00 08/26/24 15:59 08/07/24 00:07 50 ML Enoxaparin Sodium (Lovenox) 40 mg DAILY SQ 08/07/24 09:00 09/06/24 08:59 08/12/24 09:59 40 MG Famotidine (Pepcid 20mg Vial) 20 mg Q24H IV 07/25/24 21:00 08/24/24 20:59 08/11/24 20:33 20 MG Fat Emulsion Intravenous 250 ml @ 42 mls/hr QMOFR IV 07/29/24 09:00 08/05/24 16:31 DC 08/05/24 09:35 42 MLS/HR Fentanyl Citrate 100 ml @ 0 mls/hr PROTOCOL IV 07/26/24 13:30 07/27/24 12:04 DC Fentanyl Citrate 100 ml @ 0 mls/hr PROTOCOL IV 07/27/24 12:30 07/29/24 13:42 DC 07/29/24 02:03 5 MLS/HR Fentanyl/Sodium Chloride 250 ml @ 0.1 mls/hr PROTOCOL IV 07/27/24 12:00 07/27/24 12:05 DC Fluconazole/ Sodium Chloride 100 ml @ 100 mls/hr Q24H IV 07/26/24 13:30 08/25/24 13:29 08/12/24 15:22 100 MLS/HR Furosemide (LASix 20MG VIAL) 20 mg Q8H IV 07/28/24 15:30 08/27/24 15:29 08/12/24 16:15 20 MG Glucagon (Glucagon 1mg Kit) 1 mg AD PRN IM HYPOGLYCEMIA PROTOCOL 07/27/24 16:00 08/26/24 15:59 Home Med (Home Medication) WEEKLY PO 08/10/24 20:30 09/09/24 20:29 Home Med (Home Medication) (Mesalamine 1.2 GM 2 TAB) DAILY PO 08/11/24 09:00 09/10/24 08:59 08/12/24 10:01 2 EACH Hydralazine HCl (APRESOLine 20MG INJ) 5 mg Q6H PRN IV ADMINISTER FOR SBP > 160 08/08/24 12:30 09/07/24 12:29 Hydromorphone HCl (DiLAUDid 0.5MG INJ) 0.5 mg Q4H PRN IVP SEVERE PAIN (7-10) 07/29/24 14:00 08/03/24 13:59 DC 08/02/24 11:44 0.5 MG Insulin Glargine (LANtus 100 UNITS/ML 10 ML VIAL) 5 units HS SQ 07/27/24 21:00 07/29/24 09:47 DC 07/28/24 20:48 5 UNITS Insulin Glargine (LANtus 100 UNITS/ML 10 ML VIAL) 15 units BID SQ 07/29/24 21:00 08/06/24 12:06 DC 08/05/24 21:42 15 UNITS Insulin Glargine (LANtus 100 UNITS/ML 10 ML VIAL) 15 units HS SQ 07/29/24 21:00 07/29/24 13:43 DC Insulin Human Regular (humuLIN R 100 UNIT/ML 3ML) INSULIN SLIDING SCAL... ACHS SQ 08/08/24 21:00 09/07/24 20:59 08/12/24 16:13 3 UNIT Insulin Human Regular (humuLIN R 100 UNIT/ML 3ML) INSULIN SLIDING SCAL... Q6H6 SQ 07/26/24 00:00 08/08/24 19:44 DC 08/08/24 18:45 3 UNIT Ipratropium [place] (AtrovENT UD) 0.5 mg [id number] IH 07/30/24 18:00 08/29/24 17:59 08/12/24 18:10 0.5 MG Linezolid 300 ml @ 150 mls/hr Q12H IV 08/03/24 13:00 08/10/24 19:43 DC 08/10/24 12:58 150 MLS/HR Linezolid 300 ml @ 150 mls/hr Q12H IV 08/11/24 01:00 08/21/24 00:59 08/12/24 12:30 150 MLS/HR Magnesium Sulfate 50 ml @ 0 mls/hr PROTOCOL IV 08/06/24 13:00 08/08/24 12:12 DC Magnesium Sulfate 50 ml @ 0 mls/hr PROTOCOL IV 08/08/24 12:30 09/07/24 12:29 08/12/24 05:30 25 MLS/HR Magnesium Sulfate 50 ml @ 0 mls/hr PROTOCOL PRN IV hypomagnesemia 07/25/24 18:00 08/06/24 17:19 DC 08/06/24 10:01 0 MLS/HR Melatonin (Melatonin) 5 mg HS PO 08/10/24 21:00 09/09/24 20:59 08/10/24 20:34 5 MG Meropenem (Merrem 1gm) 1 gm Q12H IVPB 07/27/24 15:30 08/03/24 03:31 DC 08/03/24 03:31 1 GM Meropenem (Merrem 1gm) 1 gm Q12H IVPB 08/03/24 15:30 08/10/24 03:31 DC 08/10/24 02:49 1 GM Meropenem (Merrem 1gm) 1 gm Q12H IVPB 08/10/24 20:00 08/17/24 08:01 08/12/24 09:58 1 GM Metoprolol Tartrate (loprESSOR) 2.5 mg Q12H9 IV 07/31/24 21:00 08/09/24 11:33 DC 08/08/24 20:38 2.5 MG Metoprolol Tartrate (loprESSOR) 25 mg BID PO 08/08/24 12:30 09/07/24 12:29 08/12/24 09:59 25 MG Midazolam HCl 50 ml @ 0 mls/hr PROTOCOL IV 07/26/24 13:30 07/29/24 13:42 DC Nystatin (MycoSTATin 30 GM CREAM) 1 APPL BID TP 07/31/24 21:00 08/30/24 20:59 08/12/24 10:01 1 APPL Ondansetron HCl (zoFRAN 4MG INJ) 4 mg Q6H PRN IVP NAUSEA/VOMITING 07/25/24 18:00 08/24/24 17:59 08/03/24 15:32 4 MG Pharmacy Profile Note (Lace Assessment) 1 each AD MISC 07/27/24 15:30 07/27/24 15:14 DC Pharmacy Profile Note (Lace Assessment) 1 each AD MISC 08/03/24 11:00 08/03/24 11:10 DC Pharmacy Profile Note (Pharmacy Communication) 1 each ONCE MISC 07/27/24 15:00 07/28/24 07:29 DC Pharmacy Profile Note (Pharmacy Communication) 1 each ONCE MISC 08/03/24 11:00 08/03/24 11:47 DC Pharmacy Profile Note (Pharmacy Communication) 1 each ONCE MISC 08/03/24 11:00 08/03/24 11:53 DC Pharmacy Profile Note (Pharmacy Communication) PLEASE CLERIFY WHEN... Q30MIN MISC 08/10/24 20:00 08/11/24 06:53 DC Pharmacy Profile Note (Pharmacy Communication) POLEASE CLARIFY DIRECTI... Q30MIN MISC 08/10/24 20:00 08/10/24 20:23 DC Phenol (Sore Throat [place]) 1 spry Q4H PRN PO SORE THROAT 08/01/24 05:00 08/31/24 04:59 08/03/24 10:19 1 SPRY Phenylephrine HCl 100 mg/Sodium Chloride 250 ml @ 0 mls/hr AD PRN IV TITRATE 07/26/24 13:30 08/03/24 13:31 DC 07/30/24 04:41 9.52 MLS/HR Piperacillin Sod/ Tazobactam Sod (Zosyn 3.375gm+NS 50ml) 3.375 gm Q12H IV 07/25/24 20:00 07/25/24 17:27 DC Piperacillin Sod/ Tazobactam Sod (Zosyn 3.375gm+NS 50ml) 3.375 gm Q8H IVPB 07/25/24 19:00 07/26/24 21:40 DC 07/26/24 19:40 3.375 GM Piperacillin Sod/ Tazobactam Sod (Zosyn 3.375gm+NS 50ml) 3.375 gm Q8H IVPB 07/25/24 20:00 07/25/24 18:49 DC Potassium Chloride 100 ml @ 50 mls/hr AD PRN IV POTASSIUM PROTOCOL 07/25/24 18:00 08/24/24 17:59 08/06/24 16:20 50 MLS/HR Potassium Chloride (K-Dur/Klor-Con 20meq) 20 meq AD PRN PO POTASSIUM PROTOCOL 08/06/24 12:30 09/05/24 12:29 08/12/24 15:22 20 MEQ Potassium Chloride (KCl 10% Elixir 20meq/15ml) 20 meq AD PRN PO POTASSIUM PROTOCOL 08/06/24 12:30 09/05/24 12:29 08/06/24 12:49 20 MEQ Prednisone (deltaSONE/ ORASONE 10MG) 10 mg DAILY PO 08/18/24 09:00 08/25/24 08:59 Prednisone (deltaSONE/ oraSONE 20MG TAB) 20 mg DAILY PO 08/13/24 09:00 08/18/24 08:59 Propofol 100 ml @ 0 mls/hr AD PRN IV TITRATE 07/26/24 13:30 07/29/24 13:42 DC 07/29/24 02:49 12.2 MLS/HR Sodium Chloride 1,000 ml @ 50 mls/hr Q20H IV 08/04/24 11:30 08/06/24 12:06 DC 08/06/24 09:10 50 MLS/HR Sodium Chloride 1,000 ml @ 125 mls/hr Q8H IV 07/25/24 17:30 07/27/24 16:01 DC 07/27/24 07:58 125 MLS/HR Sodium Chloride (NS 50ml) 50 ml AD IV 07/25/24 17:00 07/25/24 17:29 DC Vancomycin HCl 250 ml @ 125 mls/hr Q12H IV 07/31/24 04:00 08/02/24 04:37 DC 08/01/24 03:10 125 MLS/HR Vancomycin HCl 250 ml @ 125 mls/hr Q12H IV 08/02/24 05:00 08/03/24 11:09 DC 08/02/24 17:22 125 MLS/HR Vancomycin HCl 250 ml @ 125 mls/hr Q24H IV 07/26/24 17:00 07/27/24 15:09 DC 07/26/24 19:55 125 MLS/HR Vancomycin HCl (Vancomycin Protocol) 1 each AD IV 07/25/24 17:00 07/27/24 14:55 DC Vancomycin HCl (Vancomycin Protocol) 1 each AD IV 07/30/24 15:00 08/03/24 11:09 DC Wound Care/ Dressing Products (Venelex Ointment) BID TP 07/31/24 21:00 08/30/24 20:59 08/12/24 10:01 1 Diagnostics / Radiology: [COPY/PASTE HERE IF NO REPORTS PLEASE DELETE SECTION] Assessment: Abnormal imaging with viscous perforation Plan: Follow surgery recommendations ROSANA JIMENEZ [employer] Aug 12, 2024 20:20
--- NOTE | 2024-08-12 22:57 | PN ---
INFECTIOUS DISEASE PROGRESS NOTE Date of Service: Aug 12, 2024 SUBJECTIVE: During rounding today in room 326 patient was sitting up to the bedside chair. Patient is status post exploratory laparotomy, repair of incarcerated ventral hernia repair and open cholecystectomy on 07/28/2024. No fever, temperature is 97.9. We will continue on linezolid, Meropenem and fluconazole. PHYSICAL EXAM EYES: Anicteric. Pupils equal and reactive. HENT: No oral thrush seen, moist Oral mucosa. NECK: Supple, no JVD or thyromegaly. LUNGS: Good air entry. No rales, no rhonchi. CARDIOVASCULAR: S1, S2 regular. No murmur heard. ABDOMEN: Soft, non tender, bowel sounds present, no organomegaly. Abdominal surgical incision with two BYRON drains. CENTRAL NERVOUS SYSTEM: Awake, alert and oriented x3. SKIN: No rashes, no swelling. LYMPHATICS: No peripheral lymphadenopathy. MUSCULOSKELETAL: No joint swelling, erythema or tenderness. Debility. EXTREMITIES: No cyanosis or clubbing. BACK: No deformity, no pressure ulcer. GENITOURINARY: No dysuria or hematuria. [place] catheter. Vital Sign (Last 12 Hours) 08/12/24 08/12/24 08/12/24 08/12/24 11:21 12:00 16:00 18:12 Temp 97.9 97.9 Pulse 80 83 93 89 Resp 18 19 19 18 B/P (MAP) 130/86 124/79 Pulse Ox 99 97 O2 Delivery Room Air Room Air FiO2 21 21 08/12/24 08/12/24 18:12 20:00 Temp 97.7 Pulse 93 90 Resp 18 17 B/P (MAP) 138/92 Pulse Ox 97 O2 Delivery N/A Room Air Room Air FiO2 21 Intake & Output (last 24hrs) 08/11/24 08/11/24 08/12/24 15:00 23:00 07:00 Intake Total 150 ml 850.0 ml Output Total 20 ml 10 ml Balance 130 ml 840.0 ml LABS: Laboratory: Test 08/12/24 19:29 08/12/24 03:58 08/11/24 15:59 08/11/24 04:04 Range/Units Whole Blood Glucose 86 # 70-110 MG/DL Potassium Level 3.2 L 3.5-5.1 mmol/L Magnesium Level 1.50 L 1.80-2.40 mg/dL Bedside Glucose Comment Notified Nurse White Blood Count 5.9 4.8-10.8 K/uL Red Blood Count 2.80 L 4.00-5.50 MIL/uL Hemoglobin 7.3 L 12.0-16.0 g/dL Hematocrit 24.3 L 36-48 % Mean Corpuscular Volume 86.8 79-99 fL Mean Corpuscular Hemoglobin 26.1 L 27.0-33.0 pg Mean Corpuscular Hemoglobin Concent 30.0 L 32.0-36.0 g/dL Red Cell Distribution Width 17.3 H 11.0-15.5 % Platelet Count 450 H 130-400 K/uL Mean Platelet Volume 10.2 7.5-10.5 fL Nucleated Red Blood Cells 0.0 0.0-0.19 % Sodium Level 141 136-145 mmol/L Chloride Level 106 101-111 mmol/L Carbon Dioxide Level 27 21-32 mmol/L Blood Urea Nitrogen 22 H 7-18 mg/dL Creatinine 0.9 0.5-1.0 mg/dL Glomerular Filtration Rate Calc 73 >90 mL/min Random Glucose 148 H 70-105 mg/dL Total Calcium 8.5 8.5-10.1 mg/dL Total Bilirubin 0.4 0.2-1.0 mg/dL Aspartate Amino Transf (AST/SGOT) 20 10-37 U/L Alanine Aminotransferase (ALT/SGPT) 35 12-78 U/L Alkaline Phosphatase 394 H 50-136 U/L Total Protein 5.2 L 6.0-8.3 g/dL Albumin 1.4 L 3.5-5.0 g/dL ASSESSMENT: Intestinal perforation, s/p closure of exploratory laparotomy on 07/28/2024. Intra-abdominal abscess with polymicrobial infection, status post open drainage 07/26/2024. Peritonitis. Leukocytosis, resolved. Anemia requiring blood transfusion. Respiratory failure requiring intubation, s/p extubated. History of colitis. Debility. PLAN: Continue linezolid IV. Continue Meropenem. Continue fluconazole. Continue GI prophylaxis. Continue physical therapy. Continue Nutritional support as recommended by General surgery. Pending insurance approval to [employer]. This case was reviewed and discussed with my supervising physician and the above assessment and plan was formulated and agreed upon. ATTESTATION BY PHYSICIAN I have seen and examined the patient. I reviewed the documentation, medical decision making, and treatment plan as noted by the mid-level provider above. I agree with the findings and plan of care. MILLEI CHATTERJEE MD, [facility] Aug 12, 2024 22:57
[2024-08-13] VITALS (11 sets, daily range): BP systolic 133–189; BP diastolic 78–93; PULSE 82–99; RESP 16–20; TEMP 97.5–98.1; O2SAT 95–97
--- NOTE | 2024-08-13 02:20 | NUR ---
MIDLINE: PT CALLED NURSE TO NOTIFY SHE FEELS ARM WET, IV MIDLINE TO LEFT ARM LEAKING. PT/SON EXPLAINED WILL NEED TO START PERIPHERAL IV SITE TO CONTINUE TO GIVE IV ANTIBIOTICS. PT/SON DID NOT WANT FOR NURSE TO START IV AT THIS TIME, STATE THEY WILL WAIT UNTIL AM. PT/SON EXPLAINED IMPORTANCE OF GIVING IV ANTIBIOTICS AND MEDICATIONS. WANT TO WAIT UNTIL THE MORNING REGARDLESS.
[2024-08-13 06:51] LABS: BASOPHILS # (AUTO) 0.02 K/uL (0.00-0.20); BASOPHILS % (AUTO) 0.4 % (0.0-5.0); EOSINOPHILS # (AUTO) 0.08 K/uL (0.00-0.70); EOSINOPHILS % (AUTO) 1.7 % (0.0-8.0); HEMATOCRIT 26.6 % (36-48); IMMATURE GRANULOCYTE ABSOLUTE 0.06 K/uL (0-1); LYMPHOCYTES # (AUTO) 1.3 K/uL (1.0-4.8); LYMPHOCYTES % (AUTO) 28.1 % (21.0-51.0); MEAN CORPUSCULAR HEMOGLOBIN 26.7 pg (27.0-33.0); MEAN CORPUSCULAR HGB CONC 30.1 g/dL (32.0-36.0); MEAN CORPUSCULAR VOLUME 88.7 fL (79-99); MONOCYTES # (AUTO) 0.3 K/uL (0.1-1.0); MONOCYTES % (AUTO) 6.3 % (3.0-13.0); NEUTROPHILS # (AUTO) 2.9 K/uL (1.8-7.7); NEUTROPHILS % (AUTO) 62.2 % (40.0-77.0); PLATELET COUNT (AUTO) 346 K/uL (130-400); RED CELL DISTRIBUTION WIDTH 17.3 % (11.0-15.5); WHITE BLOOD COUNT (AUTO) 4.6 K/uL (4.8-10.8)
[2024-08-13 07:16] LABS: CREATININE 0.7 mg/dL (0.5-1.0); MAGNESIUM 1.8 mg/dL (1.80-2.40); PHOSPHORUS 4.1 mg/dL (2.5-4.9)
[2024-08-13 07:39] LABS: POTASSIUM 2.9 mmol/L (3.5-5.1)
[2024-08-13 08:59] LABS: INR 0.99 (0.85-1.15); PROTHROMBIN TIME 10.5 SEC (9.6-11.6)
[2024-08-13 09:01] LABS: PARTIAL THROMBOPLASTIN TIME 28.3 SEC (26.3-35.5)
[2024-08-13] MEDS: predniSONE 20 MG TABLET PO SCH (11:11)
--- NOTE | 2024-08-13 12:15 | PN ---
GASTROENTEROLOGY PROGRESS NOTE Date of Visit: Aug 13, 2024 Time of Visit: 12:15 Events / Notes: [ ] Review of Systems: CONSTITUTIONAL: No malaise or change in sensation of wellbeing. ENMT: No rhinorrhea, otorrhea, sinus pain, ear ache. CARDIOVASCULAR: No angina, palpitations, orthopnea or paroxysmal dyspnea. RESPIRATORY: No SOB. GASTROINTESTINAL: No abdominal pain, nausea, vomiting, diarrhea, hematemesis, melena or change in the patient's habitual bowel movements consistency/number. GENITOURINARY: No dysuria, hematuria or change in bladder continence. MUSCULOSKELETAL: No new muscle pain or decrease in muscular strength. No new joint swelling, redness or tenderness. SKIN: No new rash. Physical Exam: GEN: Awake, alert, oriented in person, time and place, and in no acute distress. HEENT: No sinus tenderness. Tympanic membranes were not examined. No rhinorrhea. Oral pharyngeal mucosa is pink, moist and within normal limits. Neck is supple with no cervical lymphadenopathy, thyromegaly or JVD. CHEST: Inspection, palpation and percussion of the chest were unremarkable. Lung auscultation revealed normal breath sounds bilaterally. CARDIAC: PMI is within normal limits. Heart sounds are regular. Normal S1, S2. No gallop or murmur. ABD: Soft, non-tender and not distended. No peritoneal signs on palpation. No organomegaly. Normal bowel sounds. EXT: No cyanosis or clubbing. No edema. SKIN: Intact. No rashes. JOINTS: No evidence of synovitis or acute arthritis. NEURO: Alert and oriented to name, place and person. Cranial nerve examination is unremarkable. No focal motor deficits. Normal speech. Gait is normal. Strength is normal. Vital Signs (last 8hr) Date Time Temp Pulse Resp B/P (MAP) Pulse Ox O2 Delivery O2 Flow Rate FiO2 08/13/24 11:37 99 18 08/13/24 08:00 98.1 85 20 139/84 100 Room Air 21 08/13/24 06:56 89 18 N/A Room Air 21 Laboratory: [ ] Laboratory: Test 08/13/24 08:36 08/13/24 06:39 08/13/24 05:27 08/11/24 15:59 Range/Units Prothrombin Time 10.5 9.6-11.6 SEC Prothromb Time International Ratio 0.99 0.85-1.15 Activated Partial Thromboplast Time 28.3 26.3-35.5 SEC White Blood Count 4.6 L 4.8-10.8 K/uL Red Blood Count 3.00 L 4.00-5.50 MIL/uL Hemoglobin 8.0 L 12.0-16.0 g/dL Hematocrit 26.6 L 36-48 % Mean Corpuscular Volume 88.7 79-99 fL Mean Corpuscular Hemoglobin 26.7 L 27.0-33.0 pg Mean Corpuscular Hemoglobin Concent 30.1 L 32.0-36.0 g/dL Red Cell Distribution Width 17.3 H 11.0-15.5 % Platelet Count 346 130-400 K/uL Mean Platelet Volume 9.6 7.5-10.5 fL Immature Granulocyte % (Auto) 1.3 H 0-1 % Neutrophils (%) (Auto) 62.2 40.0-77.0 % Lymphocytes (%) (Auto) 28.1 21.0-51.0 % Monocytes (%) (Auto) 6.3 3.0-13.0 % Eosinophils (%) (Auto) 1.7 0.0-8.0 % Basophils (%) (Auto) 0.4 0.0-5.0 % Neutrophils # (Auto) 2.9 1.8-7.7 K/uL Lymphocytes # (Auto) 1.3 1.0-4.8 K/uL Monocytes # (Auto) 0.3 0.1-1.0 K/uL Eosinophils # (Auto) 0.08 0.00-0.70 K/uL Basophils # (Auto) 0.02 0.00-0.20 K/uL Absolute Immature Granulocyte (auto 0.06 0-1 K/uL Nucleated Red Blood Cells 0.0 0.0-0.19 % Red Blood Cell Morphology See comments Sodium Level 143 136-145 mmol/L Potassium Level 2.9 *L 3.5-5.1 mmol/L Chloride Level 107 101-111 mmol/L Carbon Dioxide Level 28 21-32 mmol/L Blood Urea Nitrogen 15 7-18 mg/dL Creatinine 0.7 0.5-1.0 mg/dL Glomerular Filtration Rate Calc 99 >90 mL/min Random Glucose 101 70-105 mg/dL Total Calcium 8.4 L 8.5-10.1 mg/dL Phosphorus Level 4.1 2.5-4.9 mg/dL Magnesium Level 1.80 1.80-2.40 mg/dL Whole Blood Glucose 106 70-110 MG/DL Bedside Glucose Comment Notified Nurse Current Medications Medications (Trade) Dose Ordered Sig/Alexandra Route PRN Reason Start Time Stop Time Status Last Admin Dose Admin Acetaminophen (TYLenol 325MG TAB) 650 mg Q4H PRN PO TEMPERATURE GREATER THAN 101.5 08/06/24 23:30 09/05/24 23:29 08/07/24 08:16 650 MG Acetaminophen (TYLenol 325MG TAB) 650 mg Q4H PRN PO PAIN LEVEL 1 TO 3 08/09/24 05:00 09/08/24 04:59 08/12/24 03:31 650 MG Albumin Human 100 ml @ 50 mls/hr AD IV 07/28/24 08:00 07/31/24 07:59 DC Azathioprine (Imuran) 50 mg AD PO 08/10/24 19:30 08/10/24 20:23 DC Cefepime HCl (MAXipime 2 gm vial) 2 gm Q24H IVPB 07/26/24 22:00 07/27/24 14:55 DC 07/26/24 22:54 2 GM Dexmedetomidine/ Sodium Chloride (PRECEdex 400MCG/ 100ML-NS) 400 mcg PROTOCOL PRN IV agitation 07/29/24 14:00 08/03/24 13:31 DC 07/30/24 01:18 400 MCG Dextrose (D50w) 50 ml AD PRN IV HYPOGLYCEMIA PROTOCOL 07/27/24 16:00 08/26/24 15:59 08/07/24 00:07 50 ML Enoxaparin Sodium (Lovenox) 40 mg DAILY SQ 08/07/24 09:00 09/06/24 08:59 08/13/24 11:14 40 MG Famotidine (Pepcid 20mg Vial) 20 mg Q24H IV 07/25/24 21:00 08/24/24 20:59 08/12/24 21:17 20 MG Fat Emulsion Intravenous 250 ml @ 42 mls/hr QMOFR IV 07/29/24 09:00 08/05/24 16:31 DC 08/05/24 09:35 42 MLS/HR Fentanyl Citrate 100 ml @ 0 mls/hr PROTOCOL IV 07/26/24 13:30 07/27/24 12:04 DC Fentanyl Citrate 100 ml @ 0 mls/hr PROTOCOL IV 07/27/24 12:30 07/29/24 13:42 DC 07/29/24 02:03 5 MLS/HR Fentanyl/Sodium Chloride 250 ml @ 0.1 mls/hr PROTOCOL IV 07/27/24 12:00 07/27/24 12:05 DC Fluconazole/ Sodium Chloride 100 ml @ 100 mls/hr Q24H IV 07/26/24 13:30 08/25/24 13:29 08/12/24 15:22 100 MLS/HR Furosemide (LASix 20MG VIAL) 20 mg Q8H IV 07/28/24 15:30 08/27/24 15:29 08/12/24 23:23 20 MG Glucagon (Glucagon 1mg Kit) 1 mg AD PRN IM HYPOGLYCEMIA PROTOCOL 07/27/24 16:00 08/26/24 15:59 Home Med (Home Medication) WEEKLY PO 08/10/24 20:30 09/09/24 20:29 Home Med (Home Medication) (Mesalamine 1.2 GM 2 TAB) DAILY PO 08/11/24 09:00 09/10/24 08:59 08/12/24 10:01 2 EACH Hydralazine HCl (APRESOLine 20MG INJ) 5 mg Q6H PRN IV ADMINISTER FOR SBP > 160 08/08/24 12:30 09/07/24 12:29 Hydromorphone HCl (DiLAUDid 0.5MG INJ) 0.5 mg Q4H PRN IVP SEVERE PAIN (7-10) 07/29/24 14:00 08/03/24 13:59 DC 08/02/24 11:44 0.5 MG Insulin Glargine (LANtus 100 UNITS/ML 10 ML VIAL) 5 units HS SQ 07/27/24 21:00 07/29/24 09:47 DC 07/28/24 20:48 5 UNITS Insulin Glargine (LANtus 100 UNITS/ML 10 ML VIAL) 15 units BID SQ 07/29/24 21:00 08/06/24 12:06 DC 08/05/24 21:42 15 UNITS Insulin Glargine (LANtus 100 UNITS/ML 10 ML VIAL) 15 units HS SQ 07/29/24 21:00 07/29/24 13:43 DC Insulin Human Regular (humuLIN R 100 UNIT/ML 3ML) INSULIN SLIDING SCAL... ACHS SQ 08/08/24 21:00 09/07/24 20:59 08/12/24 16:13 3 UNIT Insulin Human Regular (humuLIN R 100 UNIT/ML 3ML) INSULIN SLIDING SCAL... Q6H6 SQ 07/26/24 00:00 08/08/24 19:44 DC 08/08/24 18:45 3 UNIT Ipratropium [place] (AtrovENT UD) 0.5 mg [id number] IH 07/30/24 18:00 08/29/24 17:59 08/13/24 11:37 0.5 MG Linezolid 300 ml @ 150 mls/hr Q12H IV 08/03/24 13:00 08/10/24 19:43 DC 08/10/24 12:58 150 MLS/HR Linezolid 300 ml @ 150 mls/hr Q12H IV 08/11/24 01:00 08/21/24 00:59 08/13/24 01:12 150 MLS/HR Magnesium Sulfate 50 ml @ 0 mls/hr PROTOCOL IV 08/06/24 13:00 08/08/24 12:12 DC Magnesium Sulfate 50 ml @ 0 mls/hr PROTOCOL IV 08/08/24 12:30 09/07/24 12:29 08/12/24 05:30 25 MLS/HR Magnesium Sulfate 50 ml @ 0 mls/hr PROTOCOL PRN IV hypomagnesemia 07/25/24 18:00 08/06/24 17:19 DC 08/06/24 10:01 0 MLS/HR Melatonin (Melatonin) 5 mg HS PO 08/10/24 21:00 09/09/24 20:59 08/12/24 21:17 5 MG Meropenem (Merrem 1gm) 1 gm Q12H IVPB 07/27/24 15:30 08/03/24 03:31 DC 08/03/24 03:31 1 GM Meropenem (Merrem 1gm) 1 gm Q12H IVPB 08/03/24 15:30 08/10/24 03:31 DC 08/10/24 02:49 1 GM Meropenem (Merrem 1gm) 1 gm Q12H IVPB 08/10/24 20:00 08/17/24 08:01 08/12/24 21:17 1 GM Metoprolol Tartrate (loprESSOR) 2.5 mg Q12H9 IV 07/31/24 21:00 08/09/24 11:33 DC 08/08/24 20:38 2.5 MG Metoprolol Tartrate (loprESSOR) 25 mg BID PO 08/08/24 12:30 09/07/24 12:29 08/13/24 11:11 25 MG Midazolam HCl 50 ml @ 0 mls/hr PROTOCOL IV 07/26/24 13:30 07/29/24 13:42 DC Nystatin (MycoSTATin 30 GM CREAM) 1 APPL BID TP 07/31/24 21:00 08/30/24 20:59 08/13/24 11:15 1 APPL Ondansetron HCl (zoFRAN 4MG INJ) 4 mg Q6H PRN IVP NAUSEA/VOMITING 07/25/24 18:00 08/24/24 17:59 08/03/24 15:32 4 MG Pharmacy Profile Note (Lace Assessment) 1 each AD MISC 07/27/24 15:30 07/27/24 15:14 DC Pharmacy Profile Note (Lace Assessment) 1 each AD MISC 08/03/24 11:00 08/03/24 11:10 DC Pharmacy Profile Note (Pharmacy Communication) 1 each ONCE MISC 07/27/24 15:00 07/28/24 07:29 DC Pharmacy Profile Note (Pharmacy Communication) 1 each ONCE MISC 08/03/24 11:00 08/03/24 11:47 DC Pharmacy Profile Note (Pharmacy Communication) 1 each ONCE MISC 08/03/24 11:00 08/03/24 11:53 DC Pharmacy Profile Note (Pharmacy Communication) PLEASE CLERIFY WHEN... Q30MIN MISC 08/10/24 20:00 08/11/24 06:53 DC Pharmacy Profile Note (Pharmacy Communication) POLEASE CLARIFY DIRECTI... Q30MIN MISC 08/10/24 20:00 08/10/24 20:23 DC Phenol (Sore Throat [place]) 1 spry Q4H PRN PO SORE THROAT 08/01/24 05:00 08/31/24 04:59 08/03/24 10:19 1 SPRY Phenylephrine HCl 100 mg/Sodium Chloride 250 ml @ 0 mls/hr AD PRN IV TITRATE 07/26/24 13:30 08/03/24 13:31 DC 07/30/24 04:41 9.52 MLS/HR Piperacillin Sod/ Tazobactam Sod (Zosyn 3.375gm+NS 50ml) 3.375 gm Q12H IV 07/25/24 20:00 07/25/24 17:27 DC Piperacillin Sod/ Tazobactam Sod (Zosyn 3.375gm+NS 50ml) 3.375 gm Q8H IVPB 07/25/24 19:00 07/26/24 21:40 DC 07/26/24 19:40 3.375 GM Piperacillin Sod/ Tazobactam Sod (Zosyn 3.375gm+NS 50ml) 3.375 gm Q8H IVPB 07/25/24 20:00 07/25/24 18:49 DC Potassium Chloride 100 ml @ 50 mls/hr AD PRN IV POTASSIUM PROTOCOL 07/25/24 18:00 08/24/24 17:59 08/06/24 16:20 50 MLS/HR Potassium Chloride (K-Dur/Klor-Con 20meq) 20 meq AD PRN PO POTASSIUM PROTOCOL 08/06/24 12:30 09/05/24 12:29 08/13/24 11:11 20 MEQ Potassium Chloride (KCl 10% Elixir 20meq/15ml) 20 meq AD PRN PO POTASSIUM PROTOCOL 08/06/24 12:30 09/05/24 12:29 08/06/24 12:49 20 MEQ Prednisone (deltaSONE/ ORASONE 10MG) 10 mg DAILY PO 08/18/24 09:00 08/25/24 08:59 Prednisone (deltaSONE/ oraSONE 20MG TAB) 20 mg DAILY PO 08/13/24 09:00 08/18/24 08:59 08/13/24 11:11 20 MG Propofol 100 ml @ 0 mls/hr AD PRN IV TITRATE 07/26/24 13:30 07/29/24 13:42 DC 07/29/24 02:49 12.2 MLS/HR Sodium Chloride 1,000 ml @ 50 mls/hr Q20H IV 08/04/24 11:30 08/06/24 12:06 DC 08/06/24 09:10 50 MLS/HR Sodium Chloride 1,000 ml @ 125 mls/hr Q8H IV 07/25/24 17:30 07/27/24 16:01 DC 07/27/24 07:58 125 MLS/HR Sodium Chloride (NS 50ml) 50 ml AD IV 07/25/24 17:00 07/25/24 17:29 DC Vancomycin HCl 250 ml @ 125 mls/hr Q12H IV 07/31/24 04:00 08/02/24 04:37 DC 08/01/24 03:10 125 MLS/HR Vancomycin HCl 250 ml @ 125 mls/hr Q12H IV 08/02/24 05:00 08/03/24 11:09 DC 08/02/24 17:22 125 MLS/HR Vancomycin HCl 250 ml @ 125 mls/hr Q24H IV 07/26/24 17:00 07/27/24 15:09 DC 07/26/24 19:55 125 MLS/HR Vancomycin HCl (Vancomycin Protocol) 1 each AD IV 07/25/24 17:00 07/27/24 14:55 DC Vancomycin HCl (Vancomycin Protocol) 1 each AD IV 07/30/24 15:00 08/03/24 11:09 DC Wound Care/ Dressing Products (Venelex Ointment) BID TP 07/31/24 21:00 08/30/24 20:59 08/13/24 11:14 1 GM Diagnostics / Radiology: [COPY/PASTE HERE IF NO REPORTS PLEASE DELETE SECTION] Assessment: Abnormal imaging with viscous perforation Plan: Follow surgery recommendations ROSANA JIMENEZ DIE STORAGE CLERK Aug 13, 2024 12:15
--- NOTE | 2024-08-13 12:18 | NUR ---
[facility] Follow-up: Patient re-assessed by wound healing team. See wound assessment. Assessment and recommendations provided to primary nurse. Education provided. Addendum: 08/16/24 at 0922 by ANA LARA RN RN/ Amended: Links added.
--- NOTE | 2024-08-13 16:30 | NUR ---
PATIENT RECEIVED NEW MIDLINE TO RT UPPER EXTREMITY.
--- NOTE | 2024-08-13 16:31 | NUR ---
Nutrition consult per LOS >7 Reviewed labs, notes, and medications. Pt with abd pain + abd distention POA, pending d/c to rehab, on GI soft/bland diet, minced and moist + HH, diuretics, K 2.9(L), Ca 8.4(L), HDL 29(L), A1C 8.1 per chart review. Wt via bed scale, 75% PO intake, last BM 08/12/24, abd. incision, moderate pitting, well nourished, 970 ml balance 08/12/24 per nursing. Recommendations: -Provide GI soft bland diet + HH+ minced moist + noe BID w/ lunch and dinner -Monitor PO intake -Encourage PO intake as able -Monitor BM -If no BM >3 days consider stool softener -Monitor electrolytes -Replenish electrolytes per protocol -Monitor wts -Reweigh as able -Order Vit D, vit b-12 labs to rule out deficiencies -Provide b-complex to aid in wound healing -Texture per PIANO BENCH ASSEMBLER recs -Recommend Pt to follow up with PCP -Monitor goals of care RD to follow + available for consult per protocol Addendum: 08/13/24 at [address] Amended: Links added.
[2024-08-13] MEDS: furoSEMIDE 20MG VIAL IV SCH (17:31)
[2024-08-13] MEDS: fluCONazole 200 MG/NS 100 ML 100 ML IV SCH (17:32)
--- NOTE | 2024-08-13 18:22 | PN ---
[facility] PROGRESS NOTE Date of Service: Aug 13, 2024 Time of Service: 18:21 SUBJECTIVE: 59-year-old female the past medical history of hypertension who presented to the hospital secondary to abdominal pain. Patient stated for the past 3-4 days she has been having increasing abdominal pain with abdominal distention. She was feeling nauseated and had episodes of emesis at home. She denied any hematemesis, melena, hematochezia. Patient was previously hospitalized in [facility] around one month ago secondary to colitis. GI was consulted during admission and patient underwent colonoscopy with findings showing severe inflammation of the entire colon concerning for pancolitis. She was treated with IV steroids and and was to start patient on Remicade as outpatient. She denied any fever, chills, diarrhea. She was going to follow up with GI as outpatient on 07/26/24 but had worsening pain which caused her to come to the hospital for further evaluation. Labs in the ED were notable for white count of 10.3, hemoglobin was 12.8, platelet count was 363 K, sodium was 138, potassium was 2.8, creatinine is 1.0, blood glucose was 269, lactic acid on presentation was 8.[address] abdomen pelvis which showed free intraperitoneal air concerning for bowel perforation. There is a anterior ventral wall hernia with bowel content and air collection and fat stranding concerning for bowel perforation. Her colon was also noted to be inflamed. CT was performed without contrast. 07/26 BP 135/83, tachycardic 102, saturating 100% 2 L nasal cannula. CBC shows hemoglobin 11.0, hematocrit 35.9, WBC 18.8, platelet count of 203. Sodium 141, potassium 3.7, BUN of 29, creatinine slightly worse today at 1.2. ABG with pH 7.51, pCO2 of 28, PO2 62.6, bicarb of 22.5. Serology to include influenza, SARS and group A negative. Results of chest x-ray pending. Patient is scheduled to be taken to the OR today. 07/27 the patient remains admitted to the intensive care unit, intubated, on mechanical ventilation, status post exploratory laparotomy, postoperative day one, case discussed with the RN, patient on propofol, Jose Armando-Synephrine, wound VAC to the abdomen in place, noted to have right IJ line in place. Getting broad- spectrum IV antibiotics. Blood pressure 130/79, heart rate of 83, saturating 100% on mechanical ventilation, FiO2 40%. Leukocytosis is worse today at 28.1, drop in hemoglobin to 9.7, hematocrit 30.8, with a platelet count of 148. Potassium level 3.6, magnesium 1.6. Lactic acid from 8.2 down to 1.8 ABG with pH 7.4, pCO2 34, PO2 145, bicarb of 20. Chest x-ray shows bilateral lower lung infiltrates. Family at Bedside, updated 07/28 the patient has been seen and examined in the intensive care unit, she remains intubated, mechanical ventilation, on fentanyl, propofol and Jose Armando- Synephrine, getting broad-spectrum antibiotics, BP 112/84, afebrile, saturating 100% on mechanical ventilation, FiO2 40%. CBC with a hemoglobin 8.4, hematocrit 27.8, WBC of 16.3, platelet count of 89. Patient is status post exploratory laparotomy with drainage of intra-abdominal abscess/ventral hernia repair/small- bowel resection/NS of adhesions/left open and wound VAC on 07/23 05/28 by General surgery. Results of septic workup reviewed, Gram-negative rods. Patient with a possible ischemic colitis, plan to take the patient back to the operating room for further exploration. 07/29 Pt seen at bedside, no acute events overnight. She is s/p ex-lap with cholecystectomy. Currently on pressors, will wean as able. Remains intubated, PEEP 5, FiO2 30%, will continue with daily sedation vacations. She is mildly tachycardic. She is NPO, continue TPN per general surgery. WBC increased from 16.3 up to 16.8, Hgb improved from 8.4 up to 8.6, platelets decreased from 89 d own to 76 07/30 Pt seen at bedside, no acute events overnight. She is s/p ex-lap with small bowel resection, appendectomy and drainage of intraabdominal abscess with wound vac post op day 4, repeat ex-lap with cholecystectomy, repair of left flank and ventral hernias post op day 2. Currently on pressors, will wean as able. Remains intubated, PEEP 5, FiO2 30%, she was on sedation vacation, in no acute distress, possible extubation today, will defer to critical care. She is NPO, continue TPN per general surgery. WBC improved from 16.8 down to 10.6, Hgb stable at 8.3, similar to yesterday, platelets improved from 76 up to 90, sabra kirt of her labs are relatively unremarkable. 07/31 patient seen at bedside, no acute events overnight. She is status post ex lap with small-bowel resection, appendectomy and drainage of intra-abdominal abscess with wound VAC postop day five, repeat ex lap with cholecystectomy, repair of left flank and ventral hernias postop day three. She has been successfully extubated, we will continue to try and wean pressors. Hemoglobin stable at 7.2, similar to yesterday, platelets decreased from 119-98, potassium mildly low at 3.2, we will be repleted according to protocol, remainder of her labs are relatively unremarkable. 08/02 patient seen at bedside, no acute events overnight. She is status post ex lap with small-bowel resection, appendectomy and drainage of intra-abdominal abscess with wound VAC postop day 6 repeat ex lap with cholecystectomy, repair of left flank and ventral hernias postop day 4. She has been successfully extubated, and weaned off pressors. She was transfused yesterday, Hgb improved from 6.9 up to 9.7, platelets improved to 166, potassium mildly low at 3.2, we will be repleted according to protocol, remainder of her labs are relatively unremarkable. She continues on TPN, diet to be addressed by general surgery. Only complaint is continued xuan-incisional pain 08/03 patient seen at bedside, no acute events overnight. At bedside she is in no acute distress, she has no complaints. She is status post ex lap with small- bowel resection, appendectomy and drainage of intra-abdominal abscess with wound VAC postop day 7 repeat ex lap with cholecystectomy, repair of left flank and ventral hernias postop day 5. WBC increased from 8.0 up to 27.1, this seemed to be and anomaly so a repeat CBC was ordered and WBC increased again to 34.4. Patient has been bolused 1 L of LR, repeat lactic acid was ordered and was mildly elevated at 2.5, wounds were examined at bedside and found to be clean dry and intact with no drainage or erythema. The BYRON drains are still draining serosanguineous fluid there does not appear to be sick succus suggesting bowel perforation. Discussed case with General surgery and Infectious Disease, we agreed to order a CT scan of the abdomen/pelvis to determine if there is a new abscess forming. Patient has not had watery bowel movements to suggest C diff and she is already on fluconazole. Hemoglobin increased from 8.7 up to 11.2, remainder of her labs are relatively unremarkable. Antibiotics were adjusted to Zyvox and meropenem. Further recommendations per Infectious Disease and General surgery. 08/04 patient seen at bedside, no acute events overnight. She has no complaints at bedside, reports her pain has improved today. She was made NPO yesterday after she vomited, we will resume clear liquid diet per General surgery recommendations. She is hemodynamically stable saturating well on room air, her WBC improved from 34.4 down to 30.8, hemoglobin decreased from 11.2 down to 8.6, potassium decreased from 4.1 down to 3.2, remainder of her labs are relatively unremarkable. Pt has been referred for LTAC, follow up with case management 08/05 patient is seen and examined, comfortable in bed, following commands, nutr itional support via TPN, BP 123/75, heart rate of 103, afebrile, saturating 97% room air. CBC shows a hemoglobin of 7.7, hematocrit 24.6, WBC 23.2, platelet count of 266. Sodium 137, potassium 3.4, BUN of 49, creatinine 0.7. The patient remains NPO. We will recheck CBC, transfuse 1 unit of PRBC if hemoglobin less than seven, replace electrolytes IV per protocol, continue to follow surgical input and recommendation, pending LTAC. Patient to continue broad-spectrum IV antibiotics with the meropenem, linezolid. Family at bedside, updated 08/06 the patient has been seen and examined during rounding, during my visit physical therapy evaluated the patient, noted to have swollen to the left upper extremity at the site of the PICC line. The patient remains hemodynamically stable, BP 120/78, afebrile, saturating normal on room air. Case discussed with the RN, TPN discontinued yesterday, patient is started on clear liquid diet. WBC still elevated 25.7, hemoglobin 8.7, hematocrit 27.1, platelet count of 313. We will follow repeat CMP today as potassium insulin drip 0.4 with magnesium 1.7. We will discuss discharge plan with case management, patient may benefit from discharge to LTAC as the patient with persistent leukocytosis and getting broad-spectrum IV antibiotics with meropenem and linezolid IV. We will request speech therapy to evaluate the patient. Per discussion with the RN the patient had low blood glucose in the 50s today, we will hold Lantus, continue only sliding scale, patient with a Troy catheter, we will do bladder training, Doppler of the left upper extremity ordered. at bedside, updated. 08/07 the patient has been seen and examined, remains comfortably in bed, patient remains admitted to the medical floor, remains hemodynamically stable, blood pressure 140/89, afebrile, saturating normal on room air. Yesterday she was noted to have swollen to the left arm with a PICC line , a Doppler was done, no evidence of deep venous thrombosis. Left arm kept elevated, less swelling noted today. TPN discontinued and patient started on clear liquid diet, speech therapy consulted, patient is started on GI soft diet. Leukocytosis today improving, 12.9, hemoglobin dropped to 7.5, hematocrit 24.2, potassium 3.5, magnesium 2.0. We will give potassium chloride 40 mEq p.o. x1, serial CBC q.8 hours, transfuse 1 unit of PRBC if hemoglobin less than seven, we will check stool occult blood. at bedside, updated. 08/08 patient is seen and examined at bedside, case discussed with the RN, no acute events overnight, blood pressure 156/86, heart rate of 102, afebrile, saturating normal on room air. Sodium 141, potassium 3.5, BUN of 26, 0.9, magnesium 1.7, we will give magnesium sulfate 2 g IV x1, follow CBC, transfuse as needed. 08/09 patient remains admitted to the medical floor, remains hemodynamically stable, blood pressure 134/70, afebrile, saturating normal on room air. Hemoglobin has remained stable at 7.4, no signs of active bleeding, melena, no hematochezia, no hematemesis, no hematuria. Patient remains on GI soft diet, tolerating well. Case management has been consulted, pending insurance approval for patient to be accepted to [facility]. 08/10 patient is seen and examined at bedside, case discussed with the RN, remains hemodynamically stable, at bedside, updated, pending insurance approval for the patient to be [facility]. 08/11 patient is seen and examined at bedside, comfortably in bed, alert oriented x3, at bedside. Case discussed with the RN, remains hemodynamically stable, initially was pending to discharge to [facility] as the patient was on TPN, successfully weaned off, currently tolerating diet, left upper extremity was swollen at PICC line site, Doppler negative for DVT, overall condition of the patient is slowly continues to improve. Currently pending insurance approval for the patient to be accepted to [facility]. 08/12 No acute events overnight. Vitals unremarkable, lab holiday today. Pending rehab placement, will follow up with case management 08/13 Pus still draining from wound. Surgery recommendations pending, will be discharged to rehab once cleared REVIEW OF SYSTEMS 12 point ROS negative unless noted in HPI PHYSICAL EXAM GENERAL APPEARANCE: Patient intubated, on mechanical ventilation. NEUROLOGICAL: Cranial nerves II-XII grossly intact. Motor is 5/5 in bilateral upper and lower extremities proximal to distal. No sensory deficits. HEENT: Face is symmetric. Pupils are equal and reactive. Extraocular movements are intact. NECK: Supple. No JVD. No thyromegaly. No submental, submandibular, pre-/postau ricular, occipital or supraclavicular lymphadenopathy. CHEST: Normal chest expansion. No Telemetry. LUNGS: Absence of any rales, rhonchi or any wheezing. CARDIOVASCULAR: Regular. S1 and S2 normal. No appreciable rubs, murmurs or gallops. ABDOMEN: Abdominal wound VAC in place : Deferred. No Troy. EXTREMITIES: Non-edematous and not cyanotic. No clubbing. Good capillary refill. SKIN: No skin breakdown. Vital Signs (last 8hr) Date Time Temp Pulse Resp B/P (MAP) Pulse Ox O2 Delivery O2 Flow Rate FiO2 08/13/24 16:00 97.5 89 19 145/87 97 Room Air 21 08/13/24 12:00 97.5 93 19 135/93 98 Room Air 21 08/13/24 11:37 99 18 LABS: Laboratory: Test 08/13/24 15:09 08/13/24 08:36 08/13/24 06:39 Range/Units Whole Blood Glucose 172 H 70-110 MG/DL Prothrombin Time 10.5 9.6-11.6 SEC Prothromb Time International Ratio 0.99 0.85-1.15 Activated Partial Thromboplast Time 28.3 26.3-35.5 SEC White Blood Count 4.6 L 4.8-10.8 K/uL Red Blood Count 3.00 L 4.00-5.50 MIL/uL Hemoglobin 8.0 L 12.0-16.0 g/dL Hematocrit 26.6 L 36-48 % Mean Corpuscular Volume 88.7 79-99 fL Mean Corpuscular Hemoglobin 26.7 L 27.0-33.0 pg Mean Corpuscular Hemoglobin Concent 30.1 L 32.0-36.0 g/dL Red Cell Distribution Width 17.3 H 11.0-15.5 % Platelet Count 346 130-400 K/uL Mean Platelet Volume 9.6 7.5-10.5 fL Immature Granulocyte % (Auto) 1.3 H 0-1 % Neutrophils (%) (Auto) 62.2 40.0-77.0 % Lymphocytes (%) (Auto) 28.1 21.0-51.0 % Monocytes (%) (Auto) 6.3 3.0-13.0 % Eosinophils (%) (Auto) 1.7 0.0-8.0 % Basophils (%) (Auto) 0.4 0.0-5.0 % Neutrophils # (Auto) 2.9 1.8-7.7 K/uL Lymphocytes # (Auto) 1.3 1.0-4.8 K/uL Monocytes # (Auto) 0.3 0.1-1.0 K/uL Eosinophils # (Auto) 0.08 0.00-0.70 K/uL Basophils # (Auto) 0.02 0.00-0.20 K/uL Absolute Immature Granulocyte (auto 0.06 0-1 K/uL Nucleated Red Blood Cells 0.0 0.0-0.19 % Red Blood Cell Morphology See comments Sodium Level 143 136-145 mmol/L Potassium Level 2.9 *L 3.5-5.1 mmol/L Chloride Level 107 101-111 mmol/L Carbon Dioxide Level 28 21-32 mmol/L Blood Urea Nitrogen 15 7-18 mg/dL Creatinine 0.7 0.5-1.0 mg/dL Glomerular Filtration Rate Calc 99 >90 mL/min Random Glucose 101 70-105 mg/dL Total Calcium 8.4 L 8.5-10.1 mg/dL Phosphorus Level 4.1 2.5-4.9 mg/dL Magnesium Level 1.80 1.80-2.40 mg/dL Current Medications Medications (Trade) Dose Ordered Sig/Alexandra Route PRN Reason Start Time Stop Time Status Last Admin Dose Admin Acetaminophen (TYLenol 325MG TAB) 650 mg Q4H PRN PO TEMPERATURE GREATER THAN 101.5 08/06/24 23:30 09/05/24 23:29 08/07/24 08:16 650 MG Acetaminophen (TYLenol 325MG TAB) 650 mg Q4H PRN PO PAIN LEVEL 1 TO 3 08/09/24 05:00 09/08/24 04:59 08/12/24 03:31 650 MG Albumin Human 100 ml @ 50 mls/hr AD IV 07/28/24 08:00 07/31/24 07:59 DC Azathioprine (Imuran) 50 mg AD PO 08/10/24 19:30 08/10/24 20:23 DC Cefepime HCl (MAXipime 2 gm vial) 2 gm Q24H IVPB 07/26/24 22:00 07/27/24 14:55 DC 07/26/24 22:54 2 GM Dexmedetomidine/ Sodium Chloride (PRECEdex 400MCG/ 100ML-NS) 400 mcg PROTOCOL PRN IV agitation 07/29/24 14:00 08/03/24 13:31 DC 07/30/24 01:18 400 MCG Dextrose (D50w) 50 ml AD PRN IV HYPOGLYCEMIA PROTOCOL 07/27/24 16:00 08/26/24 15:59 08/07/24 00:07 50 ML Enoxaparin Sodium (Lovenox) 40 mg DAILY SQ 08/07/24 09:00 09/06/24 08:59 08/13/24 11:14 40 MG Famotidine (Pepcid 20mg Vial) 20 mg Q24H IV 07/25/24 21:00 08/24/24 20:59 08/12/24 21:17 20 MG Fat Emulsion Intravenous 250 ml @ 42 mls/hr QMOFR IV 07/29/24 09:00 08/05/24 16:31 DC 08/05/24 09:35 42 MLS/HR Fentanyl Citrate 100 ml @ 0 mls/hr PROTOCOL IV 07/26/24 13:30 07/27/24 12:04 DC Fentanyl Citrate 100 ml @ 0 mls/hr PROTOCOL IV 07/27/24 12:30 07/29/24 13:42 DC 07/29/24 02:03 5 MLS/HR Fentanyl/Sodium Chloride 250 ml @ 0.1 mls/hr PROTOCOL IV 07/27/24 12:00 07/27/24 12:05 DC Fluconazole/ Sodium Chloride 100 ml @ 100 mls/hr Q24H IV 07/26/24 13:30 08/13/24 16:39 DC 08/12/24 15:22 100 MLS/HR Fluconazole/ Sodium Chloride 100 ml @ 100 mls/hr Q24H IV 08/13/24 17:00 09/12/24 16:59 08/13/24 17:32 100 MLS/HR Furosemide (LASix 20MG VIAL) 20 mg Q8H IV 07/28/24 15:30 08/13/24 16:42 DC 08/12/24 23:23 20 MG Furosemide (LASix 20MG VIAL) 20 mg Q8H IV 08/13/24 17:00 09/12/24 16:59 08/13/24 17:31 20 MG Glucagon (Glucagon 1mg Kit) 1 mg AD PRN IM HYPOGLYCEMIA PROTOCOL 07/27/24 16:00 08/26/24 15:59 Home Med (Home Medication) WEEKLY PO 08/10/24 20:30 09/09/24 20:29 Home Med (Home Medication) (Mesalamine 1.2 GM) 2 TABS... DAILY PO 08/11/24 09:00 09/10/24 08:59 08/13/24 15:18 2 EACH Hydralazine HCl (APRESOLine 20MG INJ) 5 mg Q6H PRN IV ADMINISTER FOR SBP > 160 08/08/24 12:30 09/07/24 12:29 Hydromorphone HCl (DiLAUDid 0.5MG INJ) 0.5 mg Q4H PRN IVP SEVERE PAIN (7-10) 07/29/24 14:00 08/03/24 13:59 DC 08/02/24 11:44 0.5 MG Insulin Glargine (LANtus 100 UNITS/ML 10 ML VIAL) 5 units HS SQ 07/27/24 21:00 07/29/24 09:47 DC 07/28/24 20:48 5 UNITS Insulin Glargine (LANtus 100 UNITS/ML 10 ML VIAL) 15 units BID SQ 07/29/24 21:00 08/06/24 12:06 DC 08/05/24 21:42 15 UNITS Insulin Glargine (LANtus 100 UNITS/ML 10 ML VIAL) 15 units HS SQ 07/29/24 21:00 07/29/24 13:43 DC Insulin Human Regular (humuLIN R 100 UNIT/ML 3ML) INSULIN SLIDING SCAL... ACHS SQ 08/08/24 21:00 09/07/24 20:59 08/12/24 16:13 3 UNIT Insulin Human Regular (humuLIN R 100 UNIT/ML 3ML) INSULIN SLIDING SCAL... Q6H6 SQ 07/26/24 00:00 08/08/24 19:44 DC 08/08/24 18:45 3 UNIT Ipratropium [place] (AtrovENT UD) 0.5 mg [id number] IH 07/30/24 18:00 08/29/24 17:59 08/13/24 11:37 0.5 MG Linezolid 300 ml @ 150 mls/hr Q12H IV 08/03/24 13:00 08/10/24 19:43 DC 08/10/24 12:58 150 MLS/HR Linezolid 300 ml @ 150 mls/hr Q12H IV 08/13/24 18:30 08/23/24 18:29 Linezolid 300 ml @ 150 mls/hr Q12H IV 08/11/24 01:00 08/13/24 16:40 DC 08/13/24 01:12 150 MLS/HR Magnesium Sulfate 50 ml @ 0 mls/hr PROTOCOL IV 08/06/24 13:00 08/08/24 12:12 DC Magnesium Sulfate 50 ml @ 0 mls/hr PROTOCOL IV 08/08/24 12:30 09/07/24 12:29 08/12/24 05:30 25 MLS/HR Magnesium Sulfate 50 ml @ 0 mls/hr PROTOCOL PRN IV hypomagnesemia 07/25/24 18:00 08/06/24 17:19 DC 08/06/24 10:01 0 MLS/HR Melatonin (Melatonin) 5 mg HS PO 08/10/24 21:00 09/09/24 20:59 08/12/24 21:17 5 MG Meropenem (Merrem 1gm) 1 gm Q12H IVPB 07/27/24 15:30 08/03/24 03:31 DC 08/03/24 03:31 1 GM Meropenem (Merrem 1gm) 1 gm Q12H IVPB 08/03/24 15:30 08/10/24 03:31 DC 08/10/24 02:49 1 GM Meropenem (Merrem 1gm) 1 gm Q12H IVPB 08/13/24 21:00 08/17/24 21:01 Meropenem (Merrem 1gm) 1 gm Q12H IVPB 08/10/24 20:00 08/13/24 16:41 DC 08/12/24 21:17 1 GM Metoprolol Tartrate (loprESSOR) 2.5 mg Q12H9 IV 07/31/24 21:00 08/09/24 11:33 DC 08/08/24 20:38 2.5 MG Metoprolol Tartrate (loprESSOR) 25 mg BID PO 08/08/24 12:30 09/07/24 12:29 08/13/24 11:11 25 MG Midazolam HCl 50 ml @ 0 mls/hr PROTOCOL IV 07/26/24 13:30 07/29/24 13:42 DC Nystatin (MycoSTATin 30 GM CREAM) 1 APPL BID TP 07/31/24 21:00 08/30/24 20:59 08/13/24 11:15 1 APPL Ondansetron HCl (zoFRAN 4MG INJ) 4 mg Q6H PRN IVP NAUSEA/VOMITING 07/25/24 18:00 08/24/24 17:59 08/03/24 15:32 4 MG Pharmacy Profile Note (Lace Assessment) 1 each AD MISC 07/27/24 15:30 07/27/24 15:14 DC Pharmacy Profile Note (Lace Assessment) 1 each AD MISC 08/03/24 11:00 08/03/24 11:10 DC Pharmacy Profile Note (Pharmacy Communication) 1 each ONCE MISC 07/27/24 15:00 07/28/24 07:29 DC Pharmacy Profile Note (Pharmacy Communication) 1 each ONCE MISC 08/03/24 11:00 08/03/24 11:47 DC Pharmacy Profile Note (Pharmacy Communication) 1 each ONCE MISC 08/03/24 11:00 08/03/24 11:53 DC Pharmacy Profile Note (Pharmacy Communication) PLEASE CLERIFY WHEN... Q30MIN MISC 08/10/24 20:00 08/11/24 06:53 DC Pharmacy Profile Note (Pharmacy Communication) POLEASE CLARIFY DIRECTI... Q30MIN MISC 08/10/24 20:00 08/10/24 20:23 DC Phenol (Sore Throat [place]) 1 spry Q4H PRN PO SORE THROAT 08/01/24 05:00 08/31/24 04:59 08/03/24 10:19 1 SPRY Phenylephrine HCl 100 mg/Sodium Chloride 250 ml @ 0 mls/hr AD PRN IV TITRATE 07/26/24 13:30 08/03/24 13:31 DC 07/30/24 04:41 9.52 MLS/HR Piperacillin Sod/ Tazobactam Sod (Zosyn 3.375gm+NS 50ml) 3.375 gm Q12H IV 07/25/24 20:00 07/25/24 17:27 DC Piperacillin Sod/ Tazobactam Sod (Zosyn 3.375gm+NS 50ml) 3.375 gm Q8H IVPB 07/25/24 19:00 07/26/24 21:40 DC 07/26/24 19:40 3.375 GM Piperacillin Sod/ Tazobactam Sod (Zosyn 3.375gm+NS 50ml) 3.375 gm Q8H IVPB 07/25/24 20:00 07/25/24 18:49 DC Potassium Chloride 100 ml @ 50 mls/hr AD PRN IV POTASSIUM PROTOCOL 07/25/24 18:00 08/24/24 17:59 08/06/24 16:20 50 MLS/HR Potassium Chloride (K-Dur/Klor-Con 20meq) 20 meq AD PRN PO POTASSIUM PROTOCOL 08/06/24 12:30 09/05/24 12:29 08/13/24 11:11 20 MEQ Potassium Chloride (KCl 10% Elixir 20meq/15ml) 20 meq AD PRN PO POTASSIUM PROTOCOL 08/06/24 12:30 09/05/24 12:29 08/06/24 12:49 20 MEQ Prednisone (deltaSONE/ ORASONE 10MG) 10 mg DAILY PO 08/18/24 09:00 08/25/24 08:59 Prednisone (deltaSONE/ oraSONE 20MG TAB) 20 mg DAILY PO 08/13/24 09:00 08/18/24 08:59 08/13/24 11:11 20 MG Propofol 100 ml @ 0 mls/hr AD PRN IV TITRATE 07/26/24 13:30 07/29/24 13:42 DC 07/29/24 02:49 12.2 MLS/HR Sodium Chloride 1,000 ml @ 50 mls/hr Q20H IV 08/04/24 11:30 08/06/24 12:06 DC 08/06/24 09:10 50 MLS/HR Sodium Chloride 1,000 ml @ 125 mls/hr Q8H IV 07/25/24 17:30 07/27/24 16:01 DC 07/27/24 07:58 125 MLS/HR Sodium Chloride (NS 50ml) 50 ml AD IV 07/25/24 17:00 07/25/24 17:29 DC Vancomycin HCl 250 ml @ 125 mls/hr Q12H IV 07/31/24 04:00 08/02/24 04:37 DC 08/01/24 03:10 125 MLS/HR Vancomycin HCl 250 ml @ 125 mls/hr Q12H IV 08/02/24 05:00 08/03/24 11:09 DC 08/02/24 17:22 125 MLS/HR Vancomycin HCl 250 ml @ 125 mls/hr Q24H IV 07/26/24 17:00 07/27/24 15:09 DC 07/26/24 19:55 125 MLS/HR Vancomycin HCl (Vancomycin Protocol) 1 each AD IV 07/25/24 17:00 07/27/24 14:55 DC Vancomycin HCl (Vancomycin Protocol) 1 each AD IV 07/30/24 15:00 08/03/24 11:09 DC Wound Care/ Dressing Products (Venelex Ointment) BID TP 07/31/24 21:00 08/30/24 20:59 08/13/24 11:14 1 GM DIAGNOSTICS / RADIOLOGY: [ ] Septic shock requiring pressors, resolved Bacterial peritonitis POA Bowel perforation w/ [id number] S/P exploratory laparotomy with drainage of intra-abdominal abscess/ventral hernia repair/small-bowel resection/NS of adhesions/left open and a wound VAC on 07/26/24 per Intractable abdominal pain, resolved POA Acute hypokalemia-POA, improving Dehydration-POA, resolved SHARMILA not POA, resolved Lactic acidosis-POA, resolved Hyperglycemia 2/2 uncontrolled diabetes mellitus Primary HTN HX of colitis HX of inflammatory bowel disease (Crohn's Disease) HX of cardiac arrest HX of BLE cellulitis Recent hospitalization for UTI with outpatient Zosyn antibiotic \ FRANSICO HOWELL MD Aug 13, 2024 18:22
[2024-08-13] MEDS: LINEZOLID 600 MG/ISO-OSM 300 ML IV SCH (18:56)
[2024-08-13] MEDS: MEROPENEM 1GM 1 GM VIAL IVPB SCH (20:24)
--- NOTE | 2024-08-13 22:59 | PN ---
INFECTIOUS DISEASE PROGRESS NOTE Date of Service: Aug 13, 2024 SUBJECTIVE: Patient is awake, alert and oriented x3. There is purulent drainage coming out from the previous BYRON site in the left side. No fever, temperature is 97.5. We will continue on linezolid, Meropenem and fluconazole. Patient is pending insurance approval to [employer]. PHYSICAL EXAM EYES: Anicteric. Pupils equal and reactive. HENT: No oral thrush seen, moist Oral mucosa. NECK: Supple, no JVD or thyromegaly. LUNGS: Good air entry. No rales, no rhonchi. CARDIOVASCULAR: S1, S2 regular. No murmur heard. ABDOMEN: Soft, non tender, bowel sounds present, no organomegaly. Abdominal surgical incision. CENTRAL NERVOUS SYSTEM: Awake, alert and oriented x3. SKIN: No rashes, no swelling. LYMPHATICS: No peripheral lymphadenopathy. MUSCULOSKELETAL: No joint swelling, erythema or tenderness. Debility. EXTREMITIES: No cyanosis or clubbing. BACK: No deformity, no pressure ulcer. GENITOURINARY: No dysuria or hematuria. Vital Sign (Last 12 Hours) 08/13/24 08/13/24 08/13/24 08/13/24 11:37 12:00 16:00 18:46 Temp 97.5 97.5 Pulse 99 93 89 91 Resp 18 19 19 20 B/P (MAP) 135/93 145/87 Pulse Ox 98 97 O2 Delivery Room Air Room Air N/A Room Air FiO2 21 21 21 08/13/24 08/13/24 18:48 20:00 Temp 97.7 Pulse 91 97 Resp 20 18 B/P (MAP) 133/84 Pulse Ox 95 O2 Delivery Room Air Intake & Output (last 24hrs) 08/12/24 08/12/24 08/13/24 15:00 23:00 07:00 Intake Total 60.0 ml 2232.0 ml 250.0 ml Balance 60.0 ml 2232.0 ml 250.0 ml LABS: Laboratory: Test 08/13/24 19:54 08/13/24 08:36 08/13/24 06:39 Range/Units Whole Blood Glucose 237 H 70-110 MG/DL Prothrombin Time 10.5 9.6-11.6 SEC Prothromb Time International Ratio 0.99 0.85-1.15 Activated Partial Thromboplast Time 28.3 26.3-35.5 SEC White Blood Count 4.6 L 4.8-10.8 K/uL Red Blood Count 3.00 L 4.00-5.50 MIL/uL Hemoglobin 8.0 L 12.0-16.0 g/dL Hematocrit 26.6 L 36-48 % Mean Corpuscular Volume 88.7 79-99 fL Mean Corpuscular Hemoglobin 26.7 L 27.0-33.0 pg Mean Corpuscular Hemoglobin Concent 30.1 L 32.0-36.0 g/dL Red Cell Distribution Width 17.3 H 11.0-15.5 % Platelet Count 346 130-400 K/uL Mean Platelet Volume 9.6 7.5-10.5 fL Immature Granulocyte % (Auto) 1.3 H 0-1 % Neutrophils (%) (Auto) 62.2 40.0-77.0 % Lymphocytes (%) (Auto) 28.1 21.0-51.0 % Monocytes (%) (Auto) 6.3 3.0-13.0 % Eosinophils (%) (Auto) 1.7 0.0-8.0 % Basophils (%) (Auto) 0.4 0.0-5.0 % Neutrophils # (Auto) 2.9 1.8-7.7 K/uL Lymphocytes # (Auto) 1.3 1.0-4.8 K/uL Monocytes # (Auto) 0.3 0.1-1.0 K/uL Eosinophils # (Auto) 0.08 0.00-0.70 K/uL Basophils # (Auto) 0.02 0.00-0.20 K/uL Absolute Immature Granulocyte (auto 0.06 0-1 K/uL Nucleated Red Blood Cells 0.0 0.0-0.19 % Red Blood Cell Morphology See comments Sodium Level 143 136-145 mmol/L Potassium Level 2.9 *L 3.5-5.1 mmol/L Chloride Level 107 101-111 mmol/L Carbon Dioxide Level 28 21-32 mmol/L Blood Urea Nitrogen 15 7-18 mg/dL Creatinine 0.7 0.5-1.0 mg/dL Glomerular Filtration Rate Calc 99 >90 mL/min Random Glucose 101 70-105 mg/dL Total Calcium 8.4 L 8.5-10.1 mg/dL Phosphorus Level 4.1 2.5-4.9 mg/dL Magnesium Level 1.80 1.80-2.40 mg/dL ASSESSMENT: Intestinal perforation, s/p closure of exploratory laparotomy on 07/28/2024. Intra-abdominal abscess with polymicrobial infection, status post open drainage 07/26/2024. Peritonitis. Leukocytosis, resolved. Anemia requiring blood transfusion. Respiratory failure requiring intubation, s/p extubated. History of colitis. Debility. PLAN: Continue linezolid IV. Continue Meropenem. Continue fluconazole. Continue GI prophylaxis. Continue physical therapy. Continue Nutritional support. Pending insurance approval to [employer]. This case was reviewed and discussed with my supervising physician and the above assessment and plan was formulated and agreed upon. ATTESTATION BY PHYSICIAN I have seen and examined the patient. I reviewed the documentation, medical decision making, and treatment plan as noted by the mid-level provider above. I agree with the findings and plan of care. MILLIE CHATTERJEE MD, [facility] Aug 13, 2024 22:58
[2024-08-14] VITALS (8 sets, daily range): BP systolic 121–144; BP diastolic 79–90; PULSE 65–104; RESP 16–20; TEMP 97.2–98.2; O2SAT 93–96
[2024-08-14 06:06] LABS: BASOPHILS # (AUTO) 0.02 K/uL (0.00-0.20); BASOPHILS % (AUTO) 0.3 % (0.0-5.0); EOSINOPHILS # (AUTO) 0.04 K/uL (0.00-0.70); EOSINOPHILS % (AUTO) 0.6 % (0.0-8.0); HEMATOCRIT 24.2 % (36-48); IMMATURE GRANULOCYTE ABSOLUTE 0.07 K/uL (0-1); LYMPHOCYTES # (AUTO) 1.9 K/uL (1.0-4.8); LYMPHOCYTES % (AUTO) 27.2 % (21.0-51.0); MEAN CORPUSCULAR HEMOGLOBIN 26.6 pg (27.0-33.0); MEAN CORPUSCULAR VOLUME 85.8 fL (79-99); MONOCYTES # (AUTO) 0.5 K/uL (0.1-1.0); MONOCYTES % (AUTO) 6.5 % (3.0-13.0); NEUTROPHILS # (AUTO) 4.6 K/uL (1.8-7.7); NEUTROPHILS % (AUTO) 64.4 % (40.0-77.0); NUCLEATED RED BLOOD CELLS 0.6 % (0.0-0.19); PLATELET COUNT (AUTO) 346 K/uL (130-400); RED BLOOD CELL COUNT(AUTO) 2.82 MIL/uL (4.00-5.50); RED CELL DISTRIBUTION WIDTH 17.2 % (11.0-15.5); WHITE BLOOD COUNT (AUTO) 7.1 K/uL (4.8-10.8)
[2024-08-14 06:43] LABS: CREATININE 0.6 mg/dL (0.5-1.0); POTASSIUM 3.5 mmol/L (3.5-5.1)
--- NOTE | 2024-08-14 12:27 | NUR ---
RE: INTRA-ABDOMINAL DRAIN PLACEMENT BY IR IMAGES TAKEN AND REVIEWED BY DR Xavier CARRILLO. NO ENOUGH FLUID SEEN FOR PROCEDURE TO BE DONE SAFELY. PROCEDURE CANCELLED. PROCEDURE OUTCOME REPORTED TO Ha VIDAL RN AND PATIENT TRANSPORTED TO [facility].
--- NOTE | 2024-08-14 12:30 | PN ---
GENERAL SURGERY PROGRESS NOTE DATE OF SERVICE: Aug 14, 2024 TIME OF SERVICE: 12:29 PROBLEM LISTS: [ ] INTERVAL HISTORY: [ ] PHYSICAL EXAMINATION: GENERAL: [Patient is lying comfortably in bed, not in any obvious distress.] HEAD: [Normal with no signs of head trauma.] EYES: [Not pale not jaundiced afebrile to touch.] ENT: [ Normal.] NECK: [Supple,no tenderness,no lymphadenopathy,no masses,no thyromegaly ,no bruits, no JVD.] LUNGS: [Clear breath sounds bilaterally. No wheezes, rales, or rhonchi.] HEART: [Regular rate and rhythm. Normal S1 and S2, without murmurs, rub or gallop.] VASC: [No edema. Peripheral pulses normal and equal in all extremities.] ABD: [Bowel sounds present,soft, RUQ tender, no masses, no organomegaly.] : [Normal, no suprapubic tenderness.] LYMPH: [No lymphadenopathy noted.] EXT: [ Warm soft, non tender.] SKIN: [ No rashes or lesions.] NEURO: [ Awake Alert and oriented x3.] LABORATORY: [ ] Hematology Labs: Test 08/14/24 05:58 08/13/24 06:39 Range/Units White Blood Count 7.1 # 4.8-10.8 K/uL Red Blood Count 2.82 L 4.00-5.50 MIL/uL Hemoglobin 7.5 L 12.0-16.0 g/dL Hematocrit 24.2 L 36-48 % Mean Corpuscular Volume 85.8 79-99 fL Mean Corpuscular Hemoglobin 26.6 L 27.0-33.0 pg Mean Corpuscular Hemoglobin Concent 31.0 L 32.0-36.0 g/dL Red Cell Distribution Width 17.2 H 11.0-15.5 % Platelet Count 346 130-400 K/uL Mean Platelet Volume 9.5 7.5-10.5 fL Immature Granulocyte % (Auto) 1.0 0-1 % Neutrophils (%) (Auto) 64.4 40.0-77.0 % Lymphocytes (%) (Auto) 27.2 21.0-51.0 % Monocytes (%) (Auto) 6.5 3.0-13.0 % Eosinophils (%) (Auto) 0.6 0.0-8.0 % Basophils (%) (Auto) 0.3 0.0-5.0 % Neutrophils # (Auto) 4.6 1.8-7.7 K/uL Lymphocytes # (Auto) 1.9 1.0-4.8 K/uL Monocytes # (Auto) 0.5 0.1-1.0 K/uL Eosinophils # (Auto) 0.04 0.00-0.70 K/uL Basophils # (Auto) 0.02 0.00-0.20 K/uL Absolute Immature Granulocyte (auto 0.07 0-1 K/uL Nucleated Red Blood Cells 0.6 H 0.0-0.19 % Red Blood Cell Morphology See comments Chemistry Labs: Test 08/14/24 11:14 08/14/24 05:58 08/13/24 06:39 Range/Units Whole Blood Glucose 155 H 70-110 MG/DL Sodium Level 143 136-145 mmol/L Potassium Level 3.5 3.5-5.1 mmol/L Chloride Level 108 101-111 mmol/L Carbon Dioxide Level 29 21-32 mmol/L Blood Urea Nitrogen 16 7-18 mg/dL Creatinine 0.6 0.5-1.0 mg/dL Glomerular Filtration Rate Calc 103 >90 mL/min Random Glucose 121 H 70-105 mg/dL Total Calcium 8.6 8.5-10.1 mg/dL Vitamin B12 Level 1431 H 193-986 pg/mL Phosphorus Level 4.1 2.5-4.9 mg/dL Magnesium Level 1.80 1.80-2.40 mg/dL Vitamin D 25-Hydroxy 10.8 30.0-100.0 ng/mL Coagulation Labs: Test 08/13/24 08:36 Range/Units Prothrombin Time 10.5 9.6-11.6 SEC Prothromb Time International Ratio 0.99 0.85-1.15 Activated Partial Thromboplast Time 28.3 26.3-35.5 SEC DIAGNOSTICS / RADIOLOGY: [Copy/Paste Echos/Imaging Report here] ASSESSMENT: [] PLAN: regular diet dc to [facility] F/u in my officve in 2 weeks FERNANDO CONTRERAS MD Aug 14, 2024 12:30
--- NOTE | 2024-08-14 12:36 | HMCIMG ---
CT ABDOMEN/PELVIS W/O CONTRAST HISTORY: Abdominal abscess. COMPARISON: Previous CT 08/08/2024. TECHNIQUE: Multiple sequential axial images of the abdomen were obtained including post processing sagittal and coronal reconstruction images. No intravenous or oral contrast media was administered. FINDINGS: There is small bibasilar segmental atelectasis of the lungs. The liver, spleen, pancreas, adrenal glands, both kidneys appear normal. Previous cholecystectomy. Postoperative changes of the small bowel are present. Appendix not visualized. Previously described small fluid collection within the lower anterior abdomen is no longer visualized with scarring present. Nonobstructive bowel pattern. No free air within the abdomen. Troy catheter in place with air within the urinary bladder. Left hip arthroplasty present. Anterior midline surgical site present. Subcutaneous fluid collection present measuring 5.3 x 2.8 cm. Most consistent with small seroma. IMPRESSION: 1. Previously described linear anterior lower abdominal fluid collection has resolved with scarring remaining. Percutaneous drainage not performed. 2. Small subcutaneous seroma of the anterior lower abdominal subcutaneous fat adjacent to surgical incision site. 3:. Previous cholecystectomy and surgical changes of the bowel. CT was performed with one or more following dose reduction techniques: automated exposure control, adjustment of the mA and kv according to patient's size, or use of a iterative reconstruction technique.
--- NOTE | 2024-08-14 13:47 | PN ---
GASTROENTEROLOGY PROGRESS NOTE Date of Visit: Aug 14, 2024 Time of Visit: 13:47 Events / Notes: [ ] Review of Systems: CONSTITUTIONAL: No malaise or change in sensation of wellbeing. ENMT: No rhinorrhea, otorrhea, sinus pain, ear ache. CARDIOVASCULAR: No angina, palpitations, orthopnea or paroxysmal dyspnea. RESPIRATORY: No SOB. GASTROINTESTINAL: No abdominal pain, nausea, vomiting, diarrhea, hematemesis, melena or change in the patient's habitual bowel movements consistency/number. GENITOURINARY: No dysuria, hematuria or change in bladder continence. MUSCULOSKELETAL: No new muscle pain or decrease in muscular strength. No new joint swelling, redness or tenderness. SKIN: No new rash. Physical Exam: GEN: Awake, alert, oriented in person, time and place, and in no acute distress. HEENT: No sinus tenderness. Tympanic membranes were not examined. No rhinorrhea. Oral pharyngeal mucosa is pink, moist and within normal limits. Neck is supple with no cervical lymphadenopathy, thyromegaly or JVD. CHEST: Inspection, palpation and percussion of the chest were unremarkable. Lung auscultation revealed normal breath sounds bilaterally. CARDIAC: PMI is within normal limits. Heart sounds are regular. Normal S1, S2. No gallop or murmur. ABD: Soft, non-tender and not distended. No peritoneal signs on palpation. No organomegaly. Normal bowel sounds. EXT: No cyanosis or clubbing. No edema. SKIN: Intact. No rashes. JOINTS: No evidence of synovitis or acute arthritis. NEURO: Alert and oriented to name, place and person. Cranial nerve examination is unremarkable. No focal motor deficits. Normal speech. Gait is normal. Strength is normal. Vital Signs (last 8hr) Date Time Temp Pulse Resp B/P (MAP) Pulse Ox O2 Delivery O2 Flow Rate FiO2 08/14/24 12:00 98.1 101 19 144/86 97 Room Air 08/14/24 08:00 97.2 104 16 137/83 93 Room Air 08/14/24 06:48 92 20 N/A Room Air 21 08/14/24 06:47 92 20 Laboratory: [ ] Laboratory: Test 08/14/24 11:14 08/14/24 05:58 08/13/24 08:36 08/13/24 06:39 Range/Units Whole Blood Glucose 155 H 70-110 MG/DL White Blood Count 7.1 # 4.8-10.8 K/uL Red Blood Count 2.82 L 4.00-5.50 MIL/uL Hemoglobin 7.5 L 12.0-16.0 g/dL Hematocrit 24.2 L 36-48 % Mean Corpuscular Volume 85.8 79-99 fL Mean Corpuscular Hemoglobin 26.6 L 27.0-33.0 pg Mean Corpuscular Hemoglobin Concent 31.0 L 32.0-36.0 g/dL Red Cell Distribution Width 17.2 H 11.0-15.5 % Platelet Count 346 130-400 K/uL Mean Platelet Volume 9.5 7.5-10.5 fL Immature Granulocyte % (Auto) 1.0 0-1 % Neutrophils (%) (Auto) 64.4 40.0-77.0 % Lymphocytes (%) (Auto) 27.2 21.0-51.0 % Monocytes (%) (Auto) 6.5 3.0-13.0 % Eosinophils (%) (Auto) 0.6 0.0-8.0 % Basophils (%) (Auto) 0.3 0.0-5.0 % Neutrophils # (Auto) 4.6 1.8-7.7 K/uL Lymphocytes # (Auto) 1.9 1.0-4.8 K/uL Monocytes # (Auto) 0.5 0.1-1.0 K/uL Eosinophils # (Auto) 0.04 0.00-0.70 K/uL Basophils # (Auto) 0.02 0.00-0.20 K/uL Absolute Immature Granulocyte (auto 0.07 0-1 K/uL Nucleated Red Blood Cells 0.6 H 0.0-0.19 % Sodium Level 143 136-145 mmol/L Potassium Level 3.5 3.5-5.1 mmol/L Chloride Level 108 101-111 mmol/L Carbon Dioxide Level 29 21-32 mmol/L Blood Urea Nitrogen 16 7-18 mg/dL Creatinine 0.6 0.5-1.0 mg/dL Glomerular Filtration Rate Calc 103 >90 mL/min Random Glucose 121 H 70-105 mg/dL Total Calcium 8.6 8.5-10.1 mg/dL Vitamin B12 Level 1431 H 193-986 pg/mL Prothrombin Time 10.5 9.6-11.6 SEC Prothromb Time International Ratio 0.99 0.85-1.15 Activated Partial Thromboplast Time 28.3 26.3-35.5 SEC Red Blood Cell Morphology See comments Phosphorus Level 4.1 2.5-4.9 mg/dL Magnesium Level 1.80 1.80-2.40 mg/dL Vitamin D 25-Hydroxy 10.8 30.0-100.0 ng/mL Current Medications Medications (Trade) Dose Ordered Sig/Alexandra Route PRN Reason Start Time Stop Time Status Last Admin Dose Admin Acetaminophen (TYLenol 325MG TAB) 650 mg Q4H PRN PO TEMPERATURE GREATER THAN 101.5 08/06/24 23:30 09/05/24 23:29 08/07/24 08:16 650 MG Acetaminophen (TYLenol 325MG TAB) 650 mg Q4H PRN PO PAIN LEVEL 1 TO 3 08/09/24 05:00 09/08/24 04:59 08/13/24 22:46 650 MG Albumin Human 100 ml @ 50 mls/hr AD IV 07/28/24 08:00 07/31/24 07:59 DC Azathioprine (Imuran) 50 mg AD PO 08/10/24 19:30 08/10/24 20:23 DC Cefepime HCl (MAXipime 2 gm vial) 2 gm Q24H IVPB 07/26/24 22:00 07/27/24 14:55 DC 07/26/24 22:54 2 GM Dexmedetomidine/ Sodium Chloride (PRECEdex 400MCG/ 100ML-NS) 400 mcg PROTOCOL PRN IV agitation 07/29/24 14:00 08/03/24 13:31 DC 07/30/24 01:18 400 MCG Dextrose (D50w) 50 ml AD PRN IV HYPOGLYCEMIA PROTOCOL 07/27/24 16:00 08/26/24 15:59 08/07/24 00:07 50 ML Enoxaparin Sodium (Lovenox) 40 mg DAILY SQ 08/07/24 09:00 09/06/24 08:59 08/13/24 11:14 40 MG Famotidine (Pepcid 20mg Vial) 20 mg Q24H IV 07/25/24 21:00 08/24/24 20:59 08/13/24 20:25 20 MG Fat Emulsion Intravenous 250 ml @ 42 mls/hr QMOFR IV 07/29/24 09:00 08/05/24 16:31 DC 08/05/24 09:35 42 MLS/HR Fentanyl Citrate 100 ml @ 0 mls/hr PROTOCOL IV 07/26/24 13:30 07/27/24 12:04 DC Fentanyl Citrate 100 ml @ 0 mls/hr PROTOCOL IV 07/27/24 12:30 07/29/24 13:42 DC 07/29/24 02:03 5 MLS/HR Fentanyl/Sodium Chloride 250 ml @ 0.1 mls/hr PROTOCOL IV 07/27/24 12:00 07/27/24 12:05 DC Fluconazole/ Sodium Chloride 100 ml @ 100 mls/hr Q24H IV 07/26/24 13:30 08/13/24 16:39 DC 08/12/24 15:22 100 MLS/HR Fluconazole/ Sodium Chloride 100 ml @ 100 mls/hr Q24H IV 08/13/24 17:00 09/12/24 16:59 08/13/24 17:32 100 MLS/HR Furosemide (LASix 20MG VIAL) 20 mg Q8H IV 07/28/24 15:30 08/13/24 16:42 DC 08/12/24 23:23 20 MG Furosemide (LASix 20MG VIAL) 20 mg Q8H IV 08/13/24 17:00 09/12/24 16:59 08/14/24 09:11 20 MG Glucagon (Glucagon 1mg Kit) 1 mg AD PRN IM HYPOGLYCEMIA PROTOCOL 07/27/24 16:00 08/26/24 15:59 Home Med (Home Medication) WEEKLY PO 08/10/24 20:30 09/09/24 20:29 Home Med (Home Medication) (Mesalamine 1.2 GM) 2 TABS... DAILY PO 08/11/24 09:00 09/10/24 08:59 08/13/24 15:18 2 EACH Hydralazine HCl (APRESOLine 20MG INJ) 5 mg Q6H PRN IV ADMINISTER FOR SBP > 160 08/08/24 12:30 09/07/24 12:29 Hydromorphone HCl (DiLAUDid 0.5MG INJ) 0.5 mg Q4H PRN IVP SEVERE PAIN (7-10) 07/29/24 14:00 08/03/24 13:59 DC 08/02/24 11:44 0.5 MG Insulin Glargine (LANtus 100 UNITS/ML 10 ML VIAL) 5 units HS SQ 07/27/24 21:00 07/29/24 09:47 DC 07/28/24 20:48 5 UNITS Insulin Glargine (LANtus 100 UNITS/ML 10 ML VIAL) 15 units BID SQ 07/29/24 21:00 08/06/24 12:06 DC 08/05/24 21:42 15 UNITS Insulin Glargine (LANtus 100 UNITS/ML 10 ML VIAL) 15 units HS SQ 07/29/24 21:00 07/29/24 13:43 DC Insulin Human Regular (humuLIN R 100 UNIT/ML 3ML) INSULIN SLIDING SCAL... ACHS SQ 08/08/24 21:00 09/07/24 20:59 08/13/24 20:29 4 UNIT Insulin Human Regular (humuLIN R 100 UNIT/ML 3ML) INSULIN SLIDING SCAL... Q6H6 SQ 07/26/24 00:00 08/08/24 19:44 DC 08/08/24 18:45 3 UNIT Ipratropium [place] (AtrovENT UD) 0.5 mg [id number] IH 07/30/24 18:00 08/29/24 17:59 08/14/24 06:46 0.5 MG Linezolid 300 ml @ 150 mls/hr Q12H IV 08/03/24 13:00 08/10/24 19:43 DC 08/10/24 12:58 150 MLS/HR Linezolid 300 ml @ 150 mls/hr Q12H IV 08/13/24 18:30 08/23/24 18:29 08/14/24 06:10 150 MLS/HR Linezolid 300 ml @ 150 mls/hr Q12H IV 08/11/24 01:00 08/13/24 16:40 DC 08/13/24 01:12 150 MLS/HR Magnesium Sulfate 50 ml @ 0 mls/hr PROTOCOL IV 08/06/24 13:00 08/08/24 12:12 DC Magnesium Sulfate 50 ml @ 0 mls/hr PROTOCOL IV 08/08/24 12:30 09/07/24 12:29 08/12/24 05:30 25 MLS/HR Magnesium Sulfate 50 ml @ 0 mls/hr PROTOCOL PRN IV hypomagnesemia 07/25/24 18:00 08/06/24 17:19 DC 08/06/24 10:01 0 MLS/HR Melatonin (Melatonin) 5 mg HS PO 08/10/24 21:00 09/09/24 20:59 08/13/24 20:25 5 MG Meropenem (Merrem 1gm) 1 gm Q12H IVPB 07/27/24 15:30 08/03/24 03:31 DC 08/03/24 03:31 1 GM Meropenem (Merrem 1gm) 1 gm Q12H IVPB 08/03/24 15:30 08/10/24 03:31 DC 08/10/24 02:49 1 GM Meropenem (Merrem 1gm) 1 gm Q12H IVPB 08/13/24 21:00 08/17/24 21:01 08/14/24 09:10 1 GM Meropenem (Merrem 1gm) 1 gm Q12H IVPB 08/10/24 20:00 08/13/24 16:41 DC 08/12/24 21:17 1 GM Metoprolol Tartrate (loprESSOR) 2.5 mg Q12H9 IV 07/31/24 21:00 08/09/24 11:33 DC 08/08/24 20:38 2.5 MG Metoprolol Tartrate (loprESSOR) 25 mg BID PO 08/08/24 12:30 09/07/24 12:29 08/13/24 20:25 25 MG Midazolam HCl 50 ml @ 0 mls/hr PROTOCOL IV 07/26/24 13:30 07/29/24 13:42 DC Nystatin (MycoSTATin 30 GM CREAM) 1 APPL BID TP 07/31/24 21:00 08/30/24 20:59 08/14/24 09:17 1 APPL Ondansetron HCl (zoFRAN 4MG INJ) 4 mg Q6H PRN IVP NAUSEA/VOMITING 07/25/24 18:00 08/24/24 17:59 08/03/24 15:32 4 MG Pharmacy Profile Note (Lace Assessment) 1 each AD MISC 07/27/24 15:30 07/27/24 15:14 DC Pharmacy Profile Note (Lace Assessment) 1 each AD MISC 08/03/24 11:00 08/03/24 11:10 DC Pharmacy Profile Note (Pharmacy Communication) 1 each ONCE MISC 07/27/24 15:00 07/28/24 07:29 DC Pharmacy Profile Note (Pharmacy Communication) 1 each ONCE MISC 08/03/24 11:00 08/03/24 11:47 DC Pharmacy Profile Note (Pharmacy Communication) 1 each ONCE MISC 08/03/24 11:00 08/03/24 11:53 DC Pharmacy Profile Note (Pharmacy Communication) PLEASE CLERIFY WHEN... Q30MIN MISC 08/10/24 20:00 08/11/24 06:53 DC Pharmacy Profile Note (Pharmacy Communication) POLEASE CLARIFY DIRECTI... Q30MIN MISC 08/10/24 20:00 08/10/24 20:23 DC Phenol (Sore Throat Braham) 1 spry Q4H PRN PO SORE THROAT 08/01/24 05:00 08/31/24 04:59 08/03/24 10:19 1 SPRY Phenylephrine HCl 100 mg/Sodium Chloride 250 ml @ 0 mls/hr AD PRN IV TITRATE 07/26/24 13:30 08/03/24 13:31 DC 07/30/24 04:41 9.52 MLS/HR Piperacillin Sod/ Tazobactam Sod (Zosyn 3.375gm+NS 50ml) 3.375 gm Q12H IV 07/25/24 20:00 07/25/24 17:27 DC Piperacillin Sod/ Tazobactam Sod (Zosyn 3.375gm+NS 50ml) 3.375 gm Q8H IVPB 07/25/24 19:00 07/26/24 21:40 DC 07/26/24 19:40 3.375 GM Piperacillin Sod/ Tazobactam Sod (Zosyn 3.375gm+NS 50ml) 3.375 gm Q8H IVPB 07/25/24 20:00 07/25/24 18:49 DC Potassium Chloride 100 ml @ 50 mls/hr AD PRN IV POTASSIUM PROTOCOL 07/25/24 18:00 08/24/24 17:59 08/14/24 06:52 50 MLS/HR Potassium Chloride (K-Dur/Klor-Con 20meq) 20 meq AD PRN PO POTASSIUM PROTOCOL 08/06/24 12:30 09/05/24 12:29 08/13/24 20:25 20 MEQ Potassium Chloride (KCl 10% Elixir 20meq/15ml) 20 meq AD PRN PO POTASSIUM PROTOCOL 08/06/24 12:30 09/05/24 12:29 08/06/24 12:49 20 MEQ Prednisone (deltaSONE/ ORASONE 10MG) 10 mg DAILY PO 08/18/24 09:00 08/25/24 08:59 Prednisone (deltaSONE/ oraSONE 20MG TAB) 20 mg DAILY PO 08/13/24 09:00 08/18/24 08:59 08/13/24 11:11 20 MG Propofol 100 ml @ 0 mls/hr AD PRN IV TITRATE 07/26/24 13:30 07/29/24 13:42 DC 07/29/24 02:49 12.2 MLS/HR Sodium Chloride 1,000 ml @ 50 mls/hr Q20H IV 08/04/24 11:30 08/06/24 12:06 DC 08/06/24 09:10 50 MLS/HR Sodium Chloride 1,000 ml @ 125 mls/hr Q8H IV 07/25/24 17:30 07/27/24 16:01 DC 07/27/24 07:58 125 MLS/HR Sodium Chloride (NS 50ml) 50 ml AD IV 07/25/24 17:00 07/25/24 17:29 DC Vancomycin HCl 250 ml @ 125 mls/hr Q12H IV 07/31/24 04:00 08/02/24 04:37 DC 08/01/24 03:10 125 MLS/HR Vancomycin HCl 250 ml @ 125 mls/hr Q12H IV 08/02/24 05:00 08/03/24 11:09 DC 08/02/24 17:22 125 MLS/HR Vancomycin HCl 250 ml @ 125 mls/hr Q24H IV 07/26/24 17:00 07/27/24 15:09 DC 07/26/24 19:55 125 MLS/HR Vancomycin HCl (Vancomycin Protocol) 1 each AD IV 07/25/24 17:00 07/27/24 14:55 DC Vancomycin HCl (Vancomycin Protocol) 1 each AD IV 07/30/24 15:00 08/03/24 11:09 DC Wound Care/ Dressing Products (Venelex Ointment) BID TP 07/31/24 21:00 08/30/24 20:59 08/14/24 09:17 1 GM Diagnostics / Radiology: [COPY/PASTE HERE IF NO REPORTS PLEASE DELETE SECTION] Assessment: Abnormal imaging with viscous perforation Plan: Follow surgery recommendations ROSANA JIMENEZ WIRE TRANSFER CLERK Aug 14, 2024 13:47
--- NOTE | 2024-08-14 15:20 | NUR ---
REPORT GIVEN TO TRACI HARTLEY FROM [facility].
--- NOTE | 2024-08-14 15:48 | PN ---
INFECTIOUS DISEASE PROGRESS NOTE Date of Service: Aug 14, 2024 SUBJECTIVE: Patient is awake, alert and oriented x3. Patient had a CT of the abdomen and pelvis this morning to follow up on the abdominal abscess and possible percutaneous drain placement. The abdominal fluid however has resolved and there was no need for percutaneous drainage placement. No fever, temperature is 98.1. Patient has been approved to [facility] and being discharged today. Patient is to continue on linezolid, Meropenem and fluconazole for 7 more days at [facility]. PHYSICAL EXAM EYES: Anicteric. Pupils equal and reactive. HENT: No oral thrush seen, moist Oral mucosa. NECK: Supple, no JVD or thyromegaly. LUNGS: Good air entry. No rales, no rhonchi. CARDIOVASCULAR: S1, S2 regular. No murmur heard. ABDOMEN: Soft, non tender, bowel sounds present, no organomegaly. Abdominal surgical incision. CENTRAL NERVOUS SYSTEM: Awake, alert and oriented x3. SKIN: No rashes, no swelling. LYMPHATICS: No peripheral lymphadenopathy. MUSCULOSKELETAL: No joint swelling, erythema or tenderness. Debility. EXTREMITIES: No cyanosis or clubbing. BACK: No deformity, no pressure ulcer. GENITOURINARY: No dysuria or hematuria. Vital Sign (Last 12 Hours) 08/14/24 08/14/24 08/14/24 08/14/24 03:59 06:47 06:48 08:00 Temp 98.2 97.2 Pulse 65 92 92 104 Resp 16 20 20 16 B/P (MAP) 121/79 137/83 Pulse Ox 97 93 O2 Delivery Room Air N/A Room Air Room Air FiO2 21 08/14/24 08/14/24 09:15 12:00 Temp 98.1 Pulse 101 Resp 19 B/P (MAP) 144/86 Pulse Ox 93 97 O2 Delivery Room Air* Room Air O2 Flow Rate 0 FiO2 21 Intake & Output (last 24hrs) 08/13/24 08/13/24 08/14/24 14:59 22:59 06:59 Intake Total 1800 ml Output Total 1500 ml Balance 300 ml LABS: Laboratory: Test 08/14/24 11:14 08/14/24 05:58 08/13/24 08:36 08/13/24 06:39 Range/Units Whole Blood Glucose 155 H 70-110 MG/DL White Blood Count 7.1 # 4.8-10.8 K/uL Red Blood Count 2.82 L 4.00-5.50 MIL/uL Hemoglobin 7.5 L 12.0-16.0 g/dL Hematocrit 24.2 L 36-48 % Mean Corpuscular Volume 85.8 79-99 fL Mean Corpuscular Hemoglobin 26.6 L 27.0-33.0 pg Mean Corpuscular Hemoglobin Concent 31.0 L 32.0-36.0 g/dL Red Cell Distribution Width 17.2 H 11.0-15.5 % Platelet Count 346 130-400 K/uL Mean Platelet Volume 9.5 7.5-10.5 fL Immature Granulocyte % (Auto) 1.0 0-1 % Neutrophils (%) (Auto) 64.4 40.0-77.0 % Lymphocytes (%) (Auto) 27.2 21.0-51.0 % Monocytes (%) (Auto) 6.5 3.0-13.0 % Eosinophils (%) (Auto) 0.6 0.0-8.0 % Basophils (%) (Auto) 0.3 0.0-5.0 % Neutrophils # (Auto) 4.6 1.8-7.7 K/uL Lymphocytes # (Auto) 1.9 1.0-4.8 K/uL Monocytes # (Auto) 0.5 0.1-1.0 K/uL Eosinophils # (Auto) 0.04 0.00-0.70 K/uL Basophils # (Auto) 0.02 0.00-0.20 K/uL Absolute Immature Granulocyte (auto 0.07 0-1 K/uL Nucleated Red Blood Cells 0.6 H 0.0-0.19 % Sodium Level 143 136-145 mmol/L Potassium Level 3.5 3.5-5.1 mmol/L Chloride Level 108 101-111 mmol/L Carbon Dioxide Level 29 21-32 mmol/L Blood Urea Nitrogen 16 7-18 mg/dL Creatinine 0.6 0.5-1.0 mg/dL Glomerular Filtration Rate Calc 103 >90 mL/min Random Glucose 121 H 70-105 mg/dL Total Calcium 8.6 8.5-10.1 mg/dL Vitamin B12 Level 1431 H 193-986 pg/mL Prothrombin Time 10.5 9.6-11.6 SEC Prothromb Time International Ratio 0.99 0.85-1.15 Activated Partial Thromboplast Time 28.3 26.3-35.5 SEC Red Blood Cell Morphology See comments Phosphorus Level 4.1 2.5-4.9 mg/dL Magnesium Level 1.80 1.80-2.40 mg/dL Vitamin D 25-Hydroxy 10.8 30.0-100.0 ng/mL ASSESSMENT: Intestinal perforation, s/p closure of exploratory laparotomy on 07/28/2024. Intra-abdominal abscess with polymicrobial infection, status post open drainage 07/26/2024. Peritonitis. Leukocytosis, resolved. Anemia requiring blood transfusion. Respiratory failure requiring intubation, s/p extubated. History of colitis. Debility. PLAN: Continue linezolid IV. Continue Meropenem. Continue fluconazole. Patient to continue current IV antibiotics for 7 more days at [facility]. Patient has been approved [facility]. This case was reviewed and discussed with my supervising physician and the above assessment and plan was formulated and agreed upon. ATTESTATION BY PHYSICIAN I have seen and examined the patient. I reviewed the documentation, medical decision making, and treatment plan as noted by the mid-level provider above. I agree with the findings and plan of care. MILLIE CHATTERJEE MD, [facility] Aug 14, 2024 15:48
--- NOTE | 2024-08-14 16:00 | NUR ---
EMS IS CALLED.
--- NOTE | 2024-08-14 17:40 | NUR ---
DC INSTRUCTIONS DC INSTRUCTIONS AND FOLLOW UP APPOINTMENT GIVEN TO PT AND SPOUSE, PT WILL BE TRANSFERRING TO [facility], VERBALIZED UNDERSTANDING. MIDLINE TO RIGHT UPPER ARM INTACT. PT IS TRANSFERRED VIA EMS TO [facility]. NO FURTHER COMMENTS OR CONCERNS AT THIS TIME.
[2024-08-18] MEDS ORDERED: predniSONE 10 MG TABLET PO SCH (09:00)
== END 2024-08-14 17:40 | DRG 853 ==
LOC: EDH 15:04 → EDHIP 17:05 → 2CV 07-26 02:23 → 2BH 07-27 04:32 → 3DH 08-01 15:23
PROVIDERS: ADMIT Internal Medicine; ATTEND Internal Medicine
PROC: 0BH18EZ Insertion of Endotracheal Airway into Trachea, Via Natural or Artificial Opening Endoscopic (ICD-10-PCS; 2024-07-26)
PROC: 0DB80ZZ Excision of Small Intestine, Open Approach (ICD-10-PCS; principal; 2024-07-26 11:30)
PROC: 0DTJ0ZZ Resection of Appendix, Open Approach (ICD-10-PCS; 2024-07-26 11:30)
PROC: 02HV33Z Insertion of Infusion Device into Superior Vena Cava, Percutaneous Approach (ICD-10-PCS; 2024-07-26 11:30)
PROC: 5A1945Z Respiratory Ventilation, 24-96 Consecutive Hours (ICD-10-PCS; 2024-07-26 11:30)
PROC: 0W9G0ZZ Drainage of Peritoneal Cavity, Open Approach (ICD-10-PCS; 2024-07-28)
PROC: 0DNW0ZZ Release Peritoneum, Open Approach (ICD-10-PCS; 2024-07-28)
PROC: 0WQF0ZZ Repair Abdominal Wall, Open Approach (ICD-10-PCS; 2024-07-28 12:00)
PROC: 0FT40ZZ Resection of Gallbladder, Open Approach (ICD-10-PCS; 2024-07-28 12:00)
PROC: 30233N1 Transfusion of Nonautologous Red Blood Cells into Peripheral Vein, Percutaneous Approach (ICD-10-PCS; 2024-08-01)
DX: A41.9 Sepsis, unspecified organism (principal); J96.90 Respiratory failure, unspecified, unspecified whether with hypoxia or hypercapnia; K63.1 Perforation of intestine (nontraumatic); R65.21 Severe sepsis with septic shock; K65.2 Spontaneous bacterial peritonitis; K65.1 Peritoneal abscess; E87.20 Acidosis, unspecified; K43.6 Other and unspecified ventral hernia with obstruction, without gangrene; K81.0 Acute cholecystitis; K56.50 Intestinal adhesions [bands], unspecified as to partial versus complete obstruction; J98.11 Atelectasis; K51.90 Ulcerative colitis, unspecified, without complications; N17.9 Acute kidney failure, unspecified; E86.0 Dehydration; Z20.822 Contact with and (suspected) exposure to COVID-19; E78.00 Pure hypercholesterolemia, unspecified; E87.6 Hypokalemia; I10 Essential (primary) hypertension; E11.65 Type 2 diabetes mellitus with hyperglycemia; B96.1 Klebsiella pneumoniae [K. pneumoniae] as the cause of diseases classified elsewhere; D64.9 Anemia, unspecified; B95.2 Enterococcus as the cause of diseases classified elsewhere; E66.01 Morbid (severe) obesity due to excess calories; K82.8 Other specified diseases of gallbladder; Z74.01 Bed confinement status; Z75.1 Person awaiting admission to adequate facility elsewhere; Z86.74 Personal history of sudden cardiac arrest; Z90.710 Acquired absence of both cervix and uterus; Z68.37 Body mass index [BMI] 37.0-37.9, adult
CPT/HCPCS: 36415; 36430; 36556; 36600; 71045; 74018; 74176; 74177; 74178; 80048; 80053; 80061; 80202; 81001; 82306; 82435; 82550; 82607; 82803; 82947; 82948; 83036; 83605; 83735; 84100; 84132; 84145; 84295; 84484; 85014; 85018; 85025; 85027; 85610; 85730; 86850; 86900; 86901; 86923; 87040; 87070; 87076; 87086; 87186; 87426; 87804; 87880; 88302; 88304; 88307; 92610; 93971; 94002; 94003; 94150; 94640; 94664; 96365; 99285; A4450; C1894; G0378; J0330; J0612; J0690; J0692; J0696; J1100; J1171; J1450; J1650; J1815; J1940; J2003; J2020; J2185; J2371; J2405; J2543; J2704; J2795; J3010; J3370; J3475; J3480; J3490; J7030; J7050; J7070; J7120; P9016; P9045; Q9963; Q9967; A4216; A4222; A4223; A4600; A4649; A4930; A6550; A9272; A9900; B4088; C1750; J0665